=== PATIENT | female | born 1940 | race Caucasian/White ===

== ENCOUNTER 2019-02-09 01:19 | Emergency (ER) | payer MEDICARE, SELFPAY ==
[2019-02-09 01:21] VITALS: BP 186/81; PULSE 70; RESP 15; TEMP 37.2; O2SAT 96; BMI 33.2
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
[2019-02-09] MEDS: Morphine 4 MG/ML Syringe IM (01:51)
[2019-02-09] MEDS: Triamcinolone Acetonide 40 MG/ML Vial IM (01:51)
[2019-02-09 02:21] VITALS: BP 192/81; PULSE 68; RESP 15; O2SAT 98
--- NOTE | 2019-02-09 02:22 | ED.RN ---
PT AND PT DAUGHTER EDUCATED ON DISCHARGE INSTRUCTIONS AND HOME GOING PRESCRIPTIONS. PT EDUCATED ON USE OF MEDICATION AND FOLLOW UP. DR. LINTON AWARE OF PT BP 192/81 ON DISCHARGE. REPORTS THAT PT IS TO MONITOR BP AT HOME AND FOLLOW UP WITH DR. HENDRIX REGARDING ELEVATION, PT EDUCATED TO KEEP A JOURNAL OF BP FOR FOLLOW UP. PT CLEARED FOR D/C PER DR. LINTON. PT VERBALIZES UNDERSTANDING AND DENIES ANY FURTHER QUESTIONS. PT AMBULATES OUT OF DEPT WITH DAUGHTER.
== END 2019-02-09 02:26 | disposition home or self-care (01) ==
PROVIDERS: Emergency Provider Emergency Medicine; Family Provider Family Medicine; PCP Family Medicine
DX: S46.811A Strain of other muscles, fascia and tendons at shoulder and upper arm level, right arm, initial encounter (principal); X58.XXXA Exposure to other specified factors, initial encounter; Y93.9 Activity, unspecified; Y92.9 Unspecified place or not applicable; Y99.9 Unspecified external cause status; I10 Essential (primary) hypertension
CPT/HCPCS: 96372; 99282

== ENCOUNTER 2019-06-27 12:51 | Observation (INO) | payer MEDICARE, SELFPAY ==
[2019-06-27] VITALS (11 sets, daily range): BP systolic 138–194; BP diastolic 9–91; PULSE 57–73; RESP 16–20; TEMP 36.4–36.6; O2SAT 95–96; BMI 35.4; BMI 34.4; BMI 34.5
--- NOTE | 2019-06-27 13:07 | EKG12_ITS ---
Test Reason : CP Blood Pressure : / mmHG Vent. Rate : 061 BPM Atrial Rate : 061 BPM P-R Int : 156 ms QRS Dur : 082 ms QT Int : 426 ms P-R-T Axes : 016 -12 -15 degrees QTc Int : 428 ms Sinus rhythm with Premature atrial complexes Nonspecific ST abnormality Abnormal ECG When compared with ECG of 27-JUN-2019 12:53, MANUAL COMPARISON REQUIRED, DATA IS UNCONFIRMED Confirmed by SANDRA RIVERA, JACLYN ([id number]), editor index OTONIEL MORTON ([id number]) on 06/29/2019 1:27:39 PM Referred By: Avinash Lockhart Confirmed By:SHAWN FLORES MD
--- NOTE | 2019-06-27 13:15 | RAD_ITS ---
STUDY: X-RAY CHEST REASON FOR EXAM: Female, 79 years old. CHEST PAIN, DIZZINESS TECHNIQUE: Single AP portable view of the chest. COMPARISON: None. FINDINGS: EKG electrodes are seen. There is elevation of the right hemidiaphragm. Mild increased linear markings are seen at the right lung base suggests underlying atelectasis and/or scarring. There is no demonstrated pleural abnormality. Normal size heart. Normal mediastinum and gisele. Normal visualized pulmonary arteries. Normal visualized aortic arch and descending thoracic aorta. There are diffuse degenerative changes of the visualized thoracic spine. Normal visualized ribs, clavicles, and shoulders. There is no demonstrated abnormality of the visualized soft tissue structures of the upper abdomen. RAD/Chest 1 View (Portable) IMPRESSION: Elevation of the right hemidiaphragm with mild increased linear markings at the right lung base suggests underlying atelectasis and/or scarring. Electronically Signed: Robert Martínez, at 13:40 EST , Service support ,
[2019-06-27] MEDS: Aspirin 81 MG TAB.CHEW 324 MG PO (13:16)
[2019-06-27] MEDS: Nitroglycerin SL (ED/IMG/CATH) 0.4 MG TABLET SUBLINGUAL ×3 (13:17→13:32)
[2019-06-27 13:23] LABS: Absolute Lymphocyte Count 2.41 X10^3/uL (0.83-4.51); Absolute Neutrophil Count 3.2 X10^3/uL (2.0-7.7); Basophil# 0.01 X10^3/uL; Basophil% 0.2 % (0-1); Eosinophil# 0.08 X10^3/uL; Eosinophils% 1.3 % (0-5); Hematocrit 37.1 % (37-47); Hemoglobin 11.3 g/dL (12.0-15.0); Lymphocyte # 2.41 X10^3/ul (4.0); Lymphocyte % 39.5 % (19-41); Mean Corp Hgb Conc 30.5 g/dL (32-36); Mean Corpuscular Hgb 23.2 pg (27.0-32.0); Mean Platelet Vol. 9.2 fl (6.2-12.0); Monocyte# 0.38 X10^3/uL; Monocyte% 6.2 % (0-10); NRBC Flagged by Analyzer 0 % (0-5); Neutrophil # 3.21 X10^3/uL (2.7-7.7); Neutrophil % 52.6 % (47-70); Platelet Count 274 K/mm3 (150-450); RBC Distribution Width CV 16.6 % (11.6-14.6); RBC Distribution Width SD 45.3 fl (35.1-43.9); Red Blood Count 4.88 M/mm3 (4.2-5.4); White Blood Count 6.1 K/mm3 (4.4-11.0)
[2019-06-27] MEDS: 0.9% Normal Saline 1,000 ML 150 ML IV (13:27)
[2019-06-27 13:42] LABS: Anion Gap 5 (5-15); BUN 18 mg/dL (7-18); BUN/Creat Ratio 17.5 RATIO (10-20); Calcium,Total 8.8 mg/dL (8.5-10.1); Chloride 108 mmol/L (98-107); Creatinine, Serum 1.03 mg/dL (0.55-1.02); EST Glomerular Filtration Rate 55 mL/min (>60); Est Glom Filt Rate - Afr Amer 67 mL/min (>60); Estimated Creatinine Clearance 41.46 ml/min; Glucose 112 mg/dL (74-106); Potassium 3.6 mmol/L (3.5-5.1); Sodium Level 142 mmol/L (136-145)
--- NOTE | 2019-06-27 14:23 | ED.DCSUM_ITS ---
- ER Visit Summary Date of Service: 06/27/19 Chief Complaint: [Dizziness and chest pain] History of Present Illness: The patient is a 79 F presents with dizziness, chest pain, and hypertension symptoms x4 days. Patient states the dizziness started 4 days ago and seems like vertigo when she tries to stand she feels off balance and feels like things are spinning around and round.] Patient started with chest discomfort this morning around 9 AM she describes a dull ache in the left chest that causes her to feel somewhat short of breath and lightheaded. She denies any diaphoresis. She denies any radiation of the pain. Patient has history of hypertension and high cholesterol. Patient states that it is been many years since her last stress test. She is never had a heart attack and does not have any cardiac stents. She denies recent travel or surgery. She has no history of PE or DVT. Physical Examination: [HEENT-PERRLA, EOMI. Cranial nerves II through XII grossly intact. TMs clear. Mucous membranes moist. No adenopathy. Cardiovascular-regular rate and rhythm without murmur or ectopy Lungs-clear to auscultation, chest wall stable without crepitus or subcu emphysema Abdomen-normoactive bowel sounds, soft, nontender, no rebound or rigidity, no peritoneal signs. Extremities-intact ?4, normal range of motion, normal pulses, atraumatic] Test Results: [EKG obtained showed a sinus rhythm with a ventricular rate of [address] depressions noted anterior laterally. Patient has flipped T waves inferiorly which appear to be chronic when compared with EKG from [address] depression seems to be new. CBC with it was unremarkable. Troponin is less than 0.015. Chemistries unremarkable. Chest x- ray showed right lung base atelectasis and scarring.] Emergency Department Course and Treatment: [Received aspirin and sublingual nitroglycerin which resolved her pain.] Treatment Plan: [Admit for further work-up and evaluation of her chest pain] Disposition: [Admit] Impression: [Chest pain-rule out acute coronary syndrome] This note was generated with AngelList[employer] software. It may contain incorrect words, spelling, and punctuation that were not noted in review of the chart prior to signing ED Disposition - Plan for ED Patient: Referrals: Brock Reddy III, MD [Primary Care Provider] -
--- NOTE | 2019-06-27 15:37 | EKG12_ITS ---
Test Reason : CP Blood Pressure : / mmHG Vent. Rate : 073 BPM Atrial Rate : 073 BPM P-R Int : 140 ms QRS Dur : 084 ms QT Int : 406 ms P-R-T Axes : 012 -17 -02 degrees QTc Int : 447 ms Sinus rhythm with sinus arrhythmia with frequent Premature ventricular complexes Left ventricular hypertrophy Nonspecific ST-Segment Abnormality Abnormal ECG Confirmed by MARLEN RIVERA, SONIA ([id number]), editor trade journal SANJAY BLANCAS ([id number]) on 07/02/2019 10:31:35 AM Referred By: Avinash Lockhart Confirmed By:SONIA GEE MD
--- NOTE | 2019-06-27 16:05 | HP.PCM_ITS ---
History of Present Illness Date of Admission: 06/27/19 Chief Complaint: chest pain The patient is a 79 year old F presents with 1 day h/o midsternal chest pain. Chest pain was not relieved nor exacerbated by anything during the day but was persistent. Patient stated that it did not radiate. Did have some shortness of breath. Patient never had chest pain like this before. Presented to the emergency room and EKG showed some T-segment depressions. Patient did receive aspirin and nitroglycerin. Chest pain resolved with nitroglycerin. The hospital service was asked to admit the patient for further cardiac evaluation. [] Past Medical History Medical History: Medical History (Last Updated 06/27/19 @ 16:07 by Avinash Lockhart DO) Glaucoma H40.9 Allergies No Known Allergies Allergy (Verified 06/27/19 12:54) Home Medications: Ambulatory Orders Medication Instructions Recorded Aspirin 81 mg PO DAILY 02/09/19 Calcium Carbonate/Vitamin D3 1 ea PO DAILY 02/09/19 [Calcium 600 + Vit D Tablet] Omeprazole 40 mg PO DAILY 02/09/19 Pravastatin [Pravachol] 40 mg PO QHS 02/09/19 Latanoprost 1 drp EACH EYE QHS 06/27/19 Surgical History: noncontributory Smoking Status: Never smoker Tobacco Use: Secondhand - *Family History Maternal History Items: - - no CAD Review of Systems Constitutional: Denies: Anorexia, Chills, Fever Eyes: Denies: Blurred vision, Double vision HEENT: Denies: Head Aches, Sinus Congestion, Sinus Drainage Cardiovascular: Reports: Chest Pain. Denies: Edema Respiratory: Reports: Shortness of Breath. Denies: Cough Gastrointestinal: Denies: Abdominal Pain, Nausea, Vomiting Genitourinary: Denies: Dysuria Musculoskeletal: Denies: Joint Pain, Joint Tenderness Skin: Denies: Rash, Wounds Neurological: Reports: - - Patient has had dizziness over the past few days. Patient has had intermittent dizziness previous that resolved spontaneously.. Denies: Focal weakness, Numbness, Tingling Psychiatric: Denies: Anxiety, Depression Hematologic/ Lymphatic: Denies: Easy Bruising, Easy Bleeding, Hx of blood clot Comment: All review systems are otherwise negative except for as mentioned above and in HPI. VTE Information - Inpt Only VTE Present on Admission: No VTE Mechan Device Prophylaxis: None VTE Pharm Prophylaxis ordered?: No Reason prophylaxis not ordered:: Procedure Not Indicated - Physical Exam Vitals/I&O's: Vital Signs Temp Pulse Resp BP Pulse Ox 36.6 C 65 16 150/81 H 95 06/27/19 15:20 06/27/19 15:25 06/27/19 15:20 06/27/19 15:20 06/27/19 15:20 Oxygen Flow Rate (L/min) 2 Oxygen Delivery Method Room Air Weight: 97 kg Body Mass Index (BMI) 34.4 Orthostatic Vital Signs Start: 06/27/19 15:19 Freq: q24h Status: Active Protocol: Activity Type Activity Date Activity User E-Sign Co-Sign Detail Recorded Client Recorded Date Recorded By Document 06/27/19 15:19 MLB [id number] 06/27/19 15:19 MLB 06/27/19 15:19 Orthostatic Vitals Standing -Blood Pressure (90/60-120/80) 150/81 H -Extremity Use Right Arm -Pulse Rate (60-100) 73 Sitting -Blood Pressure (90/60-120/80) 161/79 H -Extremity Use Right Arm -Pulse Rate (60-100) 65 Lying -Blood Pressure (90/60-120/80) 155/9 H -Extremity Use Right Arm -Pulse Rate (60-100) 57 L General: Alert, Cooperative, No apparent distress HEENT: Atraumatic, PERRLA, EOMI, Normocephalic, - - Left lateral nystagmus Oral: Moist Mucosa, No Gingival or Mucosal Lesions/ Ulcerations Neck: No Nodes, Trachea Midline Lungs: Clear to auscultation, Normal air movement, No rhonchi, No wheeze Cardiovascular: Regular rate, Regular Rhythm, Normal S1, Normal S2, No murmurs Abdomen: Bowel Sounds Present, Soft, Non Tender, Non-Distended, No Hepato- splenomegaly Extremities: No edema, No Calf Tenderness Skin: No rashes, No breakdown Musculoskeletal: No Tenderness to Palpation of Joints or Extremities, No Muscle Wasting Neurological: Cranial nerves II-XII grossly intact, - - no clonus. Spangler-Hallpike was performed on the left and had reproducible dizziness. Was nontender on the right as patient was still dizzy after performing on the left. Psych/Mental Status: Normal Affect, Appropriate Laboratory Results 06/27/19 13:15: WBC 6.1, RBC 4.88, Hgb 11.3 L, Hct 37.1, MCV 76.0 L, MCH 23.2 L, MCHC 30.5 L, RDW Std Deviation 45.3 H, RDW Coeff of Cuate 16.6 H, Plt Count 274, MPV 9.2, Immature Gran % (Auto) 0.200, Neut % (Auto) 52.6, Lymph % (Auto) 39.5, [place] % (Auto) 6.2, Eos % (Auto) 1.3, Baso % (Auto) 0.2, Absolute Neuts (auto) 3.2, Absolute Lymphs (auto) 2.41, Nucleated RBC % 0 06/27/19 13:15: Sodium 142, Potassium 3.6, Chloride 108 H, Carbon Dioxide 29.0, Anion Gap 5, BUN 18, Creatinine 1.03 H, Estim Creat Clear Calc 41.46, Est GFR (MDRD) Af Amer 67, Est GFR (MDRD) Non-Af 55 L, BUN/Creatinine Ratio 17.5, Glucose 112 H, Calcium 8.8, Troponin I < 0.015 06/27/19 15:52: Troponin I Pending EKG reviewed and showed normal sinus rhythm with ST depression in 2 and aVL, V4, V5 and V6. Current Medications Sodium Chloride () 1,000 mls @ 150 mls/hr IV .Q6H40M [facility] Last Admin: 06/27/19 13:27 Dose: 150 mls/hr Documented by: Sodium Chloride () 10 - 40 ml IV UD PRN PRN Reason: SALINE FLUSH Assessment/Plan 1. Chest pain * heart score of 5, SOLOMON 4 * plan for chemical nuc stress on 06/28 * cycle troponins 2. BPPV, acute * meclizine PRN * PT for vestibular rehab * no additional work up at this time 3. VTE prophylaxis: not indicated as pt is low risk at this time 4. ACP: dw patient. She wishes to be full code at this time. Code Visit OBSV E&M: [id number] Initial observation care L3
[2019-06-27] MEDS: Latanoprost 0.005% 1 Bottle 1 DRP EACH EYE (21:19)
[2019-06-27] MEDS: Pravastatin 40 MG Tablet PO (21:20)
[2019-06-28] VITALS (8 sets, daily range): BP systolic 124–177; BP diastolic 71–88; PULSE 62–85; RESP 14–18; TEMP 36.6–36.7; O2SAT 95–98
--- NOTE | 2019-06-28 05:00 | EKG12_ITS ---
Test Reason : AM EKG Blood Pressure : / mmHG Vent. Rate : 060 BPM Atrial Rate : 060 BPM P-R Int : 162 ms QRS Dur : 082 ms QT Int : 426 ms P-R-T Axes : 029 -09 -10 degrees QTc Int : 426 ms Sinus rhythm with occasional Premature ventricular complexes and Premature atrial complexes Nonspecific ST abnormality Abnormal ECG When compared with ECG of 27-JUN-2019 15:32, MANUAL COMPARISON REQUIRED, DATA IS UNCONFIRMED Confirmed by SANDRA RIVERA, JACLYN ([id number]), technical writer and editor OTONIEL MORTON ([id number]) on 06/29/2019 1:22:37 PM Referred By: Avinash Lockhart Confirmed By:SHAWN FLORES MD
[2019-06-28 05:46] LABS: Cholesterol 153 mg/dL (200); High Density Lipoprotein 51 mg/dL; Triglycerides 123 mg/dL; Very Low Density Lipoprotein 25 mg/dL (5-40)
[2019-06-28] MEDS: Aspirin 81 MG TAB.CHEW PO (06:05)
[2019-06-28] MEDS: Pantoprazole Sodium 40 MG Tablet PO (06:05)
--- NOTE | 2019-06-28 12:04 | CASEMGMT ---
Therapy is recommending OP vestibular therapy for pt at this time. Pt is sitting up on side of bed in no distress at this time. Pt is agreeable to OP therapy at this time and script faxed along with facesheet to [facility] once signed and original to pt. Pt voices no further questions/concerns/needs at this time. Pt is awaiting stress test results at this time. SStanisa KNOTT CM
--- NOTE | 2019-06-28 15:12 | STRESSREP_ITS ---
Stress Test Report Date: 06/28/2019 Procedure: Pharmacologic stress nuclear imaging study Indications: Chest pain Consent: Per the patient Procedure: The patient underwent pharmacologic (Regadenoson) evaluation with a peak heart rate of 118 beats per minute (83 %predicted maximal heart rate) and a peak blood pressure of 172/80 mmHg. The baseline ECG demonstrated normal sinus rhythm with nonspecific ST-T changes. EKG during lexiscan infusion revealed sinus rhythm with nonspecific ST-T changes. EKG post infusion revealed no definite ischemic changes [There were no cardiac dysrhythmias pretest, during pharmacologic infusion, or recovery]. [There was no complaint of chest discomfort during pharmacologic infusion or recovery]. The examination was discontinued secondary to completion of protocol. Impression: 1. Lexiscan stress test test is negative for Lexiscan infusion induced EKG changes of ischemia. 2. Lexiscan stress test test is negative for Lexiscan infusion induced chest pain. 3. Results of the nuclear portion of the test is as below Myocardial perfusion imaging study: Technique: The patient was injected with [12] millicuries of technetium 99m Cardiolite and subsequently rest SPECT Cardiolite nuclear imaging was obtained in the horizontal long, vertical long, and short axis views. The patient underwent pha rmacologic (Regadenoson) evaluation. Please see above for details. The patient was injected with 35.3 millicuries of technetium 99m Cardiolite and subsequently stress SPECT Cardiolite nuclear imaging was obtained in the horizontal long, vertical long, and short axis views. A gated Cardiolite study at peak stress was obtained. Interpretation: Rest and stress SPECT Cardiolite nuclear imaging status post realignment, normalization, and attenuation correction demonstrate normal myocardial radioisotope uptake. Gated images reveal no significant regional wall motion abnormalities. The reported LVEF is [greater than 70]%. Impression: 1. There is no evidence of significant ischemia or infarction. 2. Estimated ejection fraction is greater than 70%. This note was generated with [place] [employer] software. It may contain incorrect words, spelling, and punctuation that were not noted in checking the note before signing.
--- NOTE | 2019-06-28 15:55 | DCINST_ITS ---
You will use the following diet at home:: Calorie/Carbohydrate Controlled (specify 1200, 1400, etc) - 1600, Cardiac Your food should be the consistency of: Regular Your liquids should be the consistency of: Regular/Thin Discharge Activity: Return to Normal Activity Call your doctor if you observe: Fever of 101 or Higher, Shortness of breath, Dizziness, Fainting spells, Swelling in the ankles, Chest pain, Increased palpitations (irregular heartbeat) Allergies/Adverse Reactions: Allergies No Known Allergies Allergy (Verified 06/27/19 12:54) Medications to take at Discharge Aspirin 81 mg PO DAILY 02/09/19 Calcium Carbonate/Vitamin D3 [Calcium 600 + Vit D Tablet] 1 ea PO DAILY 02/09/19 Omeprazole 40 mg PO DAILY 02/09/19 Pravastatin [Pravachol] 40 mg PO QHS 02/09/19 Latanoprost 1 drp EACH EYE QHS 06/27/19 Meclizine HCl [Antivert] 12.5 mg PO TID PRN PRN #15 tab 06/28/19 The following prescriptions were given: Meclizine HCl [Antivert] 12.5 mg PO TID PRN PRN #15 tab PRN Reason: Dizziness Transmission Status: Pending to [facility] Primary Care Physician: Brock Reddy III, MD [Primary Care Provider] - Please follow up with your Primary Care Physician in: 3-5 days Test Results: Test results from this visit will be discussed in further detail at your follow- up appointment, if applicable.
--- NOTE | 2019-06-28 16:22 | PCM.DC.SUM ---
Discharge Date and Diagnosis Date of Admission: 06/27/19 Date of Discharge: 06/28/19 Hospital Course and Treatment Imaging Results: CXR: IMPRESSION: Elevation of the right hemidiaphragm with mild increased linear markings at the right lung base suggests underlying atelectasis and/or scarring. Stress Test: Impression: 1. Lexiscan stress test test is negative for Lexiscan infusion induced EKG changes of ischemia. 2. Lexiscan stress test test is negative for Lexiscan infusion induced chest pain. 3. Results of the nuclear portion of the test is as below Myocardial perfusion imaging study: Technique: The patient was injected with [12] millicuries of technetium 99m Cardiolite and subsequently rest SPECT Cardiolite nuclear imaging was obtained in the horizontal long, vertical long, and short axis views. The patient underwent pharmacologic (Regadenoson) evaluation. Please see above for details. The patient was injected with 35.3 millicuries of technetium 99m Cardiolite and subsequently stress SPECT Cardiolite nuclear imaging was obtained in the horizontal long, vertical long, and short axis views. A gated Cardiolite study at peak stress was obtained. Interpretation: Rest and stress SPECT Cardiolite nuclear imaging status post realignment, normalization, and attenuation correction demonstrate normal myocardial radioisotope uptake. Gated images reveal no significant regional wall motion abnormalities. The reported LVEF is [greater than 70]%. Impression: 1. There is no evidence of significant ischemia or infarction. 2. Estimated ejection fraction is greater than 70%. Consults: None Operations: None Procedures: Nuclear stress test Summary of Care Provided: Per HPI: The patient is a 79 year old F presents with 1 day h/o midsternal chest pain. Chest pain was not relieved nor exacerbated by anything during the day but was persistent. Patient stated that it did not radiate. Did have some shortness of breath. Patient never had chest pain like this before. Presented to the emergency room and EKG showed some T-segment depressions. Patient did receive aspirin and nitroglycerin. Chest pain resolved with nitroglycerin. The hospital service was asked to admit the patient for further cardiac evaluation. Hospital Course: 1. Chest [id number]-old female with 1 day history of midsternal chest pain with a heart score of 5 and a SOLOMON score of 4 presented to the ER. She says that it was not relieved or exacerbated by anything but it was persistent. She had an EKG that was essentially unremarkable and 3 troponins which were normal. She had a nuclear stress test which was nonischemic. In discussion with her today she says that her chest pain has completely resolved. I recommend that she continue her aspirin as well as her statin and she follow-up with her primary care doctor in 3 to 5 days. At the panel was on remarkable. I discussed discharge with her and her family, she understands the risks and benefits of going home and will be discharged today. 2. BPPV-she was started on meclizine while here in the hospital and feels little bit better, PT/OT saw her and recommended outpatient vestibular therapy. The admitting physician performed a Bastian-Hallpike maneuver on her which seemed to help, she did not have a nystagmus today. 3. Her other medical diagnoses were evaluated and her home medications were continued where appropriate - Physical Exam Vitals/I&O's: Vital Signs Temp Pulse Resp BP Pulse Ox 97.8 F 72 14 177/86 H 95 06/28/19 11:47 06/28/19 15:48 06/28/19 11:47 06/28/19 11:47 06/28/19 11:47 Oxygen Flow Rate (L/min) 2 Oxygen Delivery Method Room Air Weight: 213 lb 13.574 oz Body Mass Index (BMI) 34.4 Orthostatic Vital Signs Start: 06/27/19 15:19 Freq: q24h Status: Active Protocol: Activity Type Activity Date Activity User E-Sign Co-Sign Detail Recorded Client Recorded Date Recorded By Document 06/28/19 06:08 DEBORAH [id number] 06/28/19 06:17 KR 06/28/19 06:08 Orthostatic Vitals Standing -Blood Pressure (90/60-120/80) 167/78 H -Extremity Use Right Arm -Pulse Rate (60-100) 74 Sitting -Blood Pressure (90/60-120/80) 153/77 H -Extremity Use Right Arm -Pulse Rate (60-100) 66 Lying -Blood Pressure (90/60-120/80) 147/88 H -Extremity Use Right Arm -Pulse Rate (60-100) 72 Intake and Output for Last 24 Hours 06/26/19 06/27/19 06/28/19 23:59 23:59 23:59 Intake Total 675 / 675 / 220 Balance 675 / 675 / 220 General: Alert, Oriented x3, Cooperative, No apparent distress HEENT: Atraumatic, PERRLA, EOMI, Normocephalic Oral: Moist Mucosa Neck: Supple, No JVD Lungs: Clear to auscultation, Normal air movement, No rhonchi, No wheeze, No rales, Diminished Cardiovascular: Regular rate, Regular Rhythm, Normal S1, Normal S2, No murmurs Abdomen: Soft, Non Tender, Non-Distended, No Hepato-splenomegaly Extremities: No edema, Capillary Refill Less than 3 Seconds Skin: No rashes, No breakdown Neurological: Neuro grossly intact, Sensory exam intact to light touch and pain Psych/Mental Status: Normal Affect, Appropriate Laboratory Results 06/27/19 15:52: Troponin I < 0.015 06/27/19 19:20: Troponin I < 0.015 06/28/19 05:05: Triglycerides 123, Cholesterol 153, LDL Cholesterol 77, VLDL Cholesterol 25, HDL Cholesterol 51 Current Medications Acetaminophen (Tylenol) 650 mg PO Q6H PRN PRN PRN Reason: Pain Score 1-3/Temp > 100.7 F Aspirin ([facility]in, Baby) [facility] Last Admin: 06/28/19 06:05 Dose: 81 mg Documented by: Latanoprost (Xalatan Opthalmic) 1 drop EACH EYE QHS [facility] Last Admin: 06/27/19 21:19 Dose: 1 drop Documented by: Meclizine HCl (Antivert) 12.5 mg PO TID PRN PRN PRN Reason: DIZZINESS Nitroglycerin (Nitrostat) 0.4 mg SUBLINGUAL Q5M PRN PRN Reason: CARDIAC/CHEST PAIN Ondansetron HCl (Zofran) 4 mg IV Q8H PRN PRN PRN Reason: NAUSEA/VOMITING Pantoprazole Sodium (Protonix) 40 mg PO DAILY [facility] Last Admin: 06/28/19 06:05 Dose: 40 mg Documented by: Pravastatin Sodium (Pravachol) 40 mg PO QHS [facility] Last Admin: 06/27/19 21:20 Dose: 40 mg Documented by: Discharge Activity: Return to Normal Activity Call your doctor if you observe: Fever of 101 or Higher, Shortness of breath, Dizziness, Fainting spells, Swelling in the ankles, Chest pain, Increased palpitations (irregular heartbeat) Home Medications: Medications to take at Discharge Aspirin 81 mg PO DAILY 02/09/19 Calcium Carbonate/Vitamin D3 [Calcium 600 + Vit D Tablet] 1 ea PO DAILY 02/09/19 Omeprazole 40 mg PO DAILY 02/09/19 Pravastatin [Pravachol] 40 mg PO QHS 02/09/19 Latanoprost 1 drp EACH EYE QHS 06/27/19 Meclizine HCl [Antivert] 12.5 mg PO TID PRN PRN #15 tab 06/28/19 Following Prescrptions Were Given to Patient: Meclizine HCl [Antivert] 12.5 mg PO TID PRN PRN #15 tab PRN Reason: Dizziness Transmission Status: Received by [facility] Primary Care Physician: Brock Reddy III, MD [Primary Care Provider] - Please follow up with your Primary Care Physician in: 3-5 days Disposition: Home Minutes spent on discharge:: 35 Patient Condition:: Stable Medical Necessity - Tobacco Use Smoking Status: Never smoker Tobacco Use: Secondhand Meaningful Use Info Meaningful Use Diagnoses (Choose all that apply): None applicable Code Visit OBSV E&M: 62526 Observation care discharge
--- NOTE | 2019-06-28 16:30 | NURSING ---
daughter came to desk wanted to leave isaac would not wait to talk to
== END 2019-06-28 15:56 | disposition home or self-care (01) ==
LOC: PCU 14:51 → ED 15:04 → PCU 15:55
PROVIDERS: Emergency Provider Emergency Medicine; Family Provider Family Medicine; PCP Family Medicine; Visit Provider Family Medicine
DX: R07.89 Other chest pain (principal); H81.10 Benign paroxysmal vertigo, unspecified ear; I10 Essential (primary) hypertension; R06.02 Shortness of breath; H40.9 Unspecified glaucoma; E78.00 Pure hypercholesterolemia, unspecified; Z79.899 Other long term (current) drug therapy; Z79.82 Long term (current) use of aspirin; R94.31 Abnormal electrocardiogram [ECG] [EKG]
CPT/HCPCS: 36415; 71045; 78452; 80048; 80061; 84484; 85025; 93005; 93017; 96360; 96361; 97162; 99218; 99285; A9500; J7030; A4216; G0378; J2785

== ENCOUNTER 2020-09-14 13:43 | Emergency (ER) | payer MEDICARE, SELFPAY ==
[2019-06-27 15:11] VITALS: BMI 34.4
[2020-09-14 13:44] VITALS: BP 146/79; PULSE 98; RESP 16; TEMP 35.7; O2SAT 98; BMI 32.3
--- NOTE | 2020-09-14 14:31 | CT_ITS ---
STUDY: CT LUMBAR SPINE WITHOUT CONTRAST REASON FOR EXAM: Female, 80 years old. Pain RADIATION DOSAGE (If Supplied By Facility): CTDIvol = ( 23.05 ) mGy, DLP = ( 1474.82 ) mGycm TECHNIQUE: The patient was scanned in a multi detector CT scanner. High resolution transaxial imaging was performed. Images were obtained from lower T12 to S. Sagittal and coronal images were reconstructed. Individualized dose optimization techniques were used for this CT. COMPARISON: 08/27/2011 FINDINGS: This study is limited by the patient''s body habitus. The bones are osteopenic. No acute fracture or subluxation is seen in the lumbar spine. Multilevel lumbar spondylosis is noted, inadequately evaluated on the current study. There is no pars defect. No lytic or sclerotic lesion is seen. There is vascular calcification. Distal colonic diverticulosis is noted. CT/Spine Lumbar without Contrast IMPRESSION: No CT evidence of acute finding the lumbar spine. Multilevel lumbar spondylosis, inadequately evaluated due to the patient''s body habitus. MRI may be obtained if clinically indicated. Electronically Signed: Shashi Garcia MD at 15:54 EDT Tel , Service support ,
--- NOTE | 2020-09-14 15:05 | CT_ITS ---
Technique: Axial images of the right hip are obtained. Images were reformatted and viewed in coronal and sagittal planes. COMPARISON: None. FINDINGS: There is no CT evidence of acute fracture or dislocation in the right hip. Moderate degenerative changes of the right hip and sacroiliac are noted. The bones are somewhat osteopenic. No osseous erosion is seen. There is no lytic or sclerotic lesion. Degenerative changes of the lower lumbar spine are seen. There has been prior hysterectomy. Vascular calcification is seen. CT/Extremity Lower without Contra IMPRESSION: No CT evidence of acute fracture or dislocation the right kidney. MRI may be obtained if clinical suspicion for nondisplaced fracture is high. Electronically Signed: Shashi Garcia MD at 15:50 EDT Tel , Service support ,
[2020-09-14] MEDS: HYDROcodone Bitartrate/Apap 5/325 Tablet PO (15:25)
--- NOTE | 2020-09-14 15:35 | ED.VISSUMM ---
- ER Visit Summary Date of Service: 09/14/20 Chief Complaint: Right lower extremity pain History of Present Illness: The patient is a 80 F who presents with right lower extremity pain that has been getting worse over the past week. Patient denies any specific trauma or injury. Patient states the pain is over her posterior right hip and low back. Patient states the pain radiates all the way down her right lower extremity. Patient describes the pain as sharp and aching. Patient states nothing makes it better and nothing makes it worse. Patient denies any paresthesias or weakness. Patient admits to some nausea and vomiting due to the pain. Patient denies any radiation of the pain into her abdomen. Patient states she has had x-ray of the right hip and venous duplex of the right lower extremity which were negative. Patient states she has been taking Tylenol every 4 hours for pain with minimal improvement. Physical Examination: Vital signs are stable. Patient is afebrile. Patient is in no acute distress. Musculoskeletal exam reveals tenderness over the posterior aspect of the right hip and right lower lumbar paraspinal muscles. There is also tenderness over the sciatic notch. There is no bony crepitance or step-off noted. Range of motion was limited in all motions of the right hip and lumbar spine secondary to pain. Strength is 5/5 bilateral in the lower extremities. There are no sensory deficits noted. Pedal pulses are equal bilaterally. There is no calf tenderness. Test Results: CT scan of the lumbar spine was obtained. There are degenerative changes. There is no acute fracture or spondylolisthesis. This was interpreted by the radiologist and reviewed by myself. CT scan of the right hip was obtained. There is no occult fracture or dislocation. There are moderate degenerative changes of the right hip and sacroiliac joint. This was interpreted by the radiologist and reviewed by myself. Emergency Department Course and Treatment: Was given a dose of [place] here. Patient is feeling better on reevaluation. Patient was given a prescription for [place]. Patient was instructed to follow-up with her primary care physician in 5 to 7 days. Patient understood and was agreeable with the plan. All questions were answered. Disposition: Discharge home Impression: 1. Sciatica This note was generated with [employer] software. It may contain incorrect words, spelling, and punctuation that were not noted in review of the chart prior to signing ED Disposition - Plan for ED Patient: Disposition: Home or Assisted Living Diagnosis: Sciatica Instructions: ED Sciatica Prescriptions: Hydrocodone Bitart/Apap 5-325 [[place] 5MG-325MG] 1 tablet PO Q6H PRN PRN 3 Days #10 tab PRN Reason: Pain Prescription Printed Referrals: Brock Reddy III, MD [Primary Care Provider] - 3-5 Days
== END 2020-09-14 16:28 | disposition home or self-care (01) ==
PROVIDERS: Emergency Provider Emergency Medicine; PCP Family Medicine
DX: M54.30 Sciatica, unspecified side (principal); R11.2 Nausea with vomiting, unspecified; K21.9 Gastro-esophageal reflux disease without esophagitis; I10 Essential (primary) hypertension; Z90.49 Acquired absence of other specified parts of digestive tract; H40.9 Unspecified glaucoma; Z85.828 Personal history of other malignant neoplasm of skin
CPT/HCPCS: 72131; 73700; 99282

== ENCOUNTER 2022-08-26 05:06 | Emergency (ER) | payer MEDICARE, SELFPAY ==
[2022-08-26 05:06] VITALS: BP 173/84; PULSE 73; RESP 25; TEMP 36.4; O2SAT 97; BMI 32.1
--- NOTE | 2022-08-26 05:32 | RAD_ITS ---
EXAM: XR CHEST, 1 VIEW CLINICAL INDICATION: chest pain TECHNIQUE: Frontal view of the chest. This report was created using [employer] report generation technology. COMPARISON: 06/27/2019 FINDINGS: LUNGS AND PLEURAL SPACES: Unremarkable. No consolidation or edema. No pneumothorax. No effusion. HEART: Unremarkable. Cardiac silhouette not enlarged. MEDIASTINUM: Central airways and mediastinal contour are unremarkable. BONES/JOINTS: Unremarkable. SOFT TISSUES: Unremarkable. UPPER ABDOMEN: Stable elevation of the right diaphragm. RAD/Chest 1 View (Portable) IMPRESSION: No acute findings in the chest. Electronically Signed: Florencio Puentes MD at 6:03 EST ,
[2022-08-26] MEDS: Ketorolac 15 MG/ML Vial IV (05:46)
[2022-08-26] MEDS: Orphenadrine 60 MG/2 ML Ampul IV (05:46)
[2022-08-26 05:48] LABS: Absolute Lymphocyte Count 2.99 X10^3/uL (0.83-4.51); Absolute Neutrophil Count 2.6 X10^3/uL (2.0-7.7); Basophil# 0.03 X10^3/uL; Basophil% 0.5 % (0-1); Eosinophils% 1.6 % (0-5); Hematocrit 44.2 % (37-47); Hemoglobin 13.9 g/dL (12.0-15.0); Lymphocyte # 2.99 X10^3/ul (0.83-4.51); Lymphocyte % 48.7 % (19-41); Mean Corp Hgb Conc 31.4 g/dL (32-36); Mean Corpuscular Hgb 25.3 pg (27.0-32.0); Mean Corpuscular Volume 80.4 fL (81-99); Mean Platelet Vol. 10.2 fl (6.2-12.0); Monocyte# 0.38 X10^3/uL; Monocyte% 6.2 % (0-10); NRBC Flagged by Analyzer 0 % (0-5); Neutrophil # 2.62 X10^3/uL (2.7-7.7); Neutrophil % 42.7 % (47-70); Platelet Count 270 K/mm3 (150-450); RBC Distribution Width CV 14.8 % (11.6-14.6); White Blood Count 6.1 K/mm3 (4.4-11.0)
[2022-08-26 06:06] LABS: Anion Gap 8 (5-15); BUN 18 mg/dL (7-18); BUN/Creat Ratio 17.8 RATIO (10-20); Calcium,Total 9.6 mg/dL (8.5-10.1); Chloride 103 mmol/L (98-107); Creatinine, Serum 1.01 mg/dL (0.55-1.02); EST Glomerular Filtration Rate 56 mL/min (>60); Est Glom Filt Rate - Afr Amer 67 mL/min (>60); Glucose 106 mg/dL (74-106); Potassium 3.4 mmol/L (3.5-5.1); Sodium Level 140 mmol/L (136-145); Troponin-I HS 8 pg/mL (3.0-54.0)
--- NOTE | 2022-08-26 06:40 | EX.ED.DYSGE1 ---
HPI History of Present Illness Chief Complaint: General Illness Narrative Narrative: Patient is an 82-year-old female with history of hypertension and hyperlipidemia. She states that yesterday she noticed some pain in her left mid upper arm. She states that there was no recent trauma or excessive activity. She states all she did the other day prior to the pain beginning was a jigsaw puzzle for multiple hours. She denies any true chest discomfort or radiation of the pain but states that with the left arm pain she just does not feel right. She also states that she took her blood pressure at home and it was elevated. Therefore at this time she has concern for possible cardiac event as her mother required bypass at roughly the same age and with this comes in for evaluation. [facility] Medical History (Updated 08/26/22 @ 06:[address] Juan Dockery DO) Glaucoma Hyperlipemia Hypertension Home Medications aspirin 81 mg chewable tablet 81 mg PO DAILY heart health 02/09/19 [History Last Taken 06/27/19] calcium carbonate-vitamin D3 600 mg-125 unit tablet 1 ea PO DAILY supplement 02/09/19 [History Last Taken 06/26/19] omeprazole 40 mg capsule,delayed release 40 mg PO DAILY reflux 02/09/19 [History Last Taken 06/27/19] pravastatin 40 mg tablet 40 mg PO QHS cholesterol 02/09/19 [History Last Taken 06/26/19] latanoprost 0.005 % eye drops 1 drp EACH EYE QHS glucoma 06/27/19 [History Last Taken 06/26/19] meclizine 12.5 mg tablet 12.5 mg PO TID PRN PRN Dizziness #15 tabs 06/28/19 [Rx Last Taken Unknown] methocarbamol 500 mg tablet 500 mg PO 4X/DAY PRN PRN Muscle pain/spasm #40 tabs 08/26/22 [Rx Last Taken Unknown] Allergy/AdvReac Type Severity Reaction Status Date / Time No Known Allergies Allergy Verified 08/26/22 05:11 Surgical History (Updated 08/26/22 @ 05:13 by Shawn Ly) History of appendectomy History of cholecystectomy Social History Smoking Status: Never smoker ROS ROS ED Constitutional Constitutional ED: Denies chills or fever(s) ENT ENT ED: Denies sore throat Cardiovascular Cardiovascular: Denies chest pain, palpitations or racing heartbeat Respiratory/Chest Respiratory/Chest: Denies cough or dyspnea Gastrointestinal Gastrointestinal: Denies abdominal pain, diarrhea, nausea or vomiting Genitourinary Genitourinary ED: Denies dysuria Musculoskeletal Musculoskeletal: Reports other Details: Positive left arm pain ; Denies myalgias Integumentary Denies Abrasions or rash Neurologic Neurologic: Denies headache(s) or paresthesias Hematologic/Lymphatic Hematologic/Lymphatic: Denies easy bleeding or easy bruising EXAM Physical Exam Const Vital Signs: 08/26/22 05:06 08/26/22 05:11 08/26/22 06:55 Temperature 97.6 F L Temperature Source Temporal Pulse Rate 73 64 Respiratory Rate 25 H 15 Respiratory Effort Normal Non-Labored Respiratory Pattern Normal Blood Pressure 173/84 H 157/78 H Blood Pressure Mean 113 Pulse Ox 97 97 Oxygen Delivery Method Room Air Positive well nourished and well developed General Appearance ED: well developed HEENT Reports moist mucous membranes Eyes PERRL and EOMs intact bilaterally Neck supple and no JVD Neck Narrative: No nuchal rigidity or meningeal signs Carotid pulses are plus 2 out of 4 Chest Wall palpation of chest normal Resp normal respiratory effort and clear to auscultation bilaterally Cardio regular rate and regular rhythm Rate: other Other Details: Radial pulses are plus 2 out of 4 bilaterally are equal and symmetric GI normal to inspection, nondistended, normoactive bowel sounds, non-tender, non-distended and no masses GI Narrative: No voluntary guarding or rigidity. No pulsatile mass or fluid wave Auscultation: normoactive bowel sounds Palpation: soft Extremity Extremity Narrative: No asymmetric edema no pitting edema negative Homans' sign bilaterally Left upper extremity is neurovascularly intact; AIN/PIN are intact and normal. There is reproducible pain along the midportion of the left lateral head of the bicep. Patient states this is the same pain she has been experiencing. The pain does worsen with motion. There is no overlying erythema or warmth or induration or fluctuance to suggest cellulitis or abscess and no palpable cord to suggest upper extremity DVT. There is also no edema of the upper extremities. Remainder of the exam is normal Neuro oriented x3 and CN's II-XII intact bilaterally Sensorium / Orientation: alert Psych mental status grossly normal Skin no rashes or lesions noted MDM MDM MDM Narrative Medical decision making narrative: Patient presented to the ER mildly hypertensive and reported pain in the left arm without acute trauma. On exam the pain is very reproducible and worse with motion indicating this is musculoskeletal in nature. She does not have any recent surgery or travel no hormone use and is low risk for upper extremity DVT or PE as a cause. She denies any radiation of the pain into the chest and she denies nausea vomiting diaphoresis shortness of breath associated with this. However as there is concerned that she could have endorgan damage secondary to the elevated blood pressure a basic work-up was obtained. Lab work revealed no clinically significant findings with stable electrolytes and normal kidney function as well as a normal troponin. Chest x-ray also revealed no acute lung pathology. I do not feel the need for an x-ray as there is no signs of report of trauma of the left upper extremity and as there is no asymmetric edema or overlying soft tissue color changes there is no need for an upper extremity venous duplex. Also compartments are soft going against car compartment syndrome as a cause of her pain. Therefore at this time as work-up is negative and patient's had resolution of her pain with Toradol and Norflex I feel it is more musculoskeletal in nature related to her report of working on a jigsaw where she would have her arm flexed for a long time. The patient and family feel comfortable going home as pain has resolved and work-up is negative and therefore should be discharged with muscle relaxers and advised to return if there is no symptom improvement or she has any further concerns. History & Record Review Discussion w/independent historian: Patient and Family Lab Data Attestation: I reviewed the patient's lab results. Labs: Laboratory Results - last 24 hr 08/26/22 08/26/22 05:13 05:13 WBC 6.1 RBC 5.50 H Hgb 13.9 Hct 44.2 MCV 80.4 L MCH 25.3 L MCHC 31.4 L RDW Std Deviation 43.0 RDW Coeff of Cuate 14.8 H Plt Count 270 MPV 10.2 Immature Gran % (Auto) 0.300 Neut % (Auto) 42.7 L Lymph % (Auto) 48.7 H Nye % (Auto) 6.2 Eos % (Auto) 1.6 Baso % (Auto) 0.5 Absolute Neuts (auto) 2.6 Absolute Lymphs (auto) 2.99 Nucleated RBC % 0 Sodium 140 Potassium 3.4 L Chloride 103 Carbon Dioxide 29.0 Anion Gap 8 BUN 18 Creatinine 1.01 Estim Creat Clear Calc 40.20 Est GFR (MDRD) Af Amer 67 Est GFR (MDRD) Non-Af 56 L BUN/Creatinine Ratio 17.8 Glucose 106 Calcium 9.6 Magnesium 2.0 Troponin I High Sens 8 Radiography Diagnostic Testing: Clinical Impression(s) from Imaging Studies Chest X-Ray 08/26/22 05:32 IMPRESSION: No acute findings in the chest. Electronically Signed: Florencio Puentes MD at 6:03 EST , Chest x-ray as interpreted by the emergency medicine physician reveals no acute infiltrate pneumothorax or pleural effusion Discharge Plan Triage Chief Complaint: General Illness ED Provider: Juan Dockery Dx/Rx/DC Orders Clinical Impression: Musculoskeletal pain of left upper extremity, Accelerated hypertension Instructions: ED Hypertension, To Be Confirmed, ED Muscle Strain, Extremity Prescriptions: New methocarbamol 500 mg tablet 500 mg PO 4X/DAY PRN PRN (Reason: Muscle pain/spasm) Qty: 40 0RF No Action pravastatin 40 MG tablet 40 mg PO QHS omeprazole 40 MG capsule,delayed release(DR/EC) 40 mg PO DAILY aspirin 81 MG tablet,chewable 81 mg PO DAILY calcium carbonate-vitamin D3 1 EACH tablet 1 ea PO DAILY latanoprost 0.005 % drops 1 drp EACH EYE QHS meclizine 12.5 MG tablet 12.5 mg PO TID PRN PRN (Reason: Dizziness) Qty: 15 0RF Primary Care Provider: Braulio Meadows Referrals: Braulio Meadows MD [Primary Care Provider] - Activity Restrictions/Additional Instructions: ER work-up today shows no signs of active heart damage or damage secondary to the elevated blood pressure reading at home. Please take all your medication as previously directed but add the muscle relaxer as the left arm pain appears to be related to muscular spasm and tension. Please return to the ER should you have any further concerns Disposition Disposition: Home, Self Care Discharge Date/Time: 08/26/22 06:56
[2022-08-26 06:55] VITALS: BP 157/78; PULSE 64; RESP 15; O2SAT 97
== END 2022-08-26 06:56 | disposition home or self-care (01) ==
PROVIDERS: Emergency Provider Emergency Medicine; PCP Family Medicine; Visit Provider Emergency Medicine
DX: I10 Essential (primary) hypertension (principal); M79.602 Pain in left arm; E78.5 Hyperlipidemia, unspecified; H40.9 Unspecified glaucoma; Z79.899 Other long term (current) drug therapy; Z79.82 Long term (current) use of aspirin
CPT/HCPCS: 71045; 80048; 83735; 84484; 85025; 93005; 96374; 96375; 99284; A4216

== ENCOUNTER 2024-01-21 13:38 | Emergency (ER) | payer MEDICARE, SELFPAY ==
[2024-01-21 13:40] VITALS: BP 148/76; PULSE 59; RESP 16; TEMP 35.5; O2SAT 98; BMI 30.7
--- NOTE | 2024-01-21 14:14 | RAD_ITS ---
STUDY: X-RAY - LEFT KNEE REASON FOR EXAM: Female, 83 years old. FALL TECHNIQUE: 4 view(s) of the knee. COMPARISON: None. FINDINGS: There is demineralization of the visualized distal femur. There is demineralization of the tibia and fibula. Normal proximal tibiofibular articulation. There is no demonstrated fracture. There is mild degenerative arthrosis of the medial femorotibial compartment. Normal lateral femorotibial compartment. There is mild degenerative arthrosis of the patellofemoral articulation. The soft tissue structures are unremarkable. RAD/Knee 4 or More Views IMPRESSION: Degenerative arthrosis. Electronically Signed: Gabe Vang MD at 15:39 EDT ,
--- NOTE | 2024-01-21 15:59 | EX.ED.DYSGE1 ---
HPI History of Present Illness Chief Complaint: Lower Extremity Injury Informant: patient and spouse/S.O. Narrative Narrative: Patient is 83-year-old female with history of hypertension hyperlipidemia. She states this morning she was walking out to the freezer in the garage and she tripped over the lawnmower which she had parked in front of it and forgot about. She states she landed directly on her left knee and denies striking her head or any loss of consciousness. She also denies any history of bleeding disorder or blood thinner use. She states has been able to ambulate since the fall but there has been swelling bruising and pain and she is concerned for fracture and therefore comes in for evaluation. [facility] Medical History (Updated 01/21/24 @ 16:[address] Juan Dockery, DO) Hyperlipemia Hypertension Glaucoma Home Medications ?Medication ?Instructions ?Recorded ?Last Taken ?Type aspirin 81 mg chewable tablet 81 mg PO DAILY heart health 02/09/19 06/27/19 History calcium carbonate-vitamin D3 600 1 ea PO DAILY supplement 02/09/19 06/26/19 History mg-125 unit tablet omeprazole 40 mg capsule,delayed 40 mg PO DAILY reflux 02/09/19 06/27/19 History release pravastatin 40 mg tablet 40 mg PO QHS cholesterol 02/09/19 06/26/19 History latanoprost 0.005 % eye drops 1 drp EACH EYE QHS glucoma 06/27/19 06/26/19 History meclizine 12.5 mg tablet 12.5 mg PO TID PRN PRN Dizziness 06/28/19 Unknown Rx #15 tabs methocarbamol 500 mg tablet 500 mg PO 4X/DAY PRN PRN Muscle 08/26/22 Unknown Rx pain/spasm #40 tabs Allergy/AdvReac Type Severity Reaction Status Date / Time No Known Allergies Allergy Verified 01/21/24 13:40 Surgical History (Updated 08/26/22 @ 05:13 by Shawn Ly) History of cholecystectomy History of appendectomy Social History Smoking Status: Never smoker ROS ROS ED Constitutional Constitutional ED: Denies chills or fever(s) Eyes Eyes: Denies blurry vision or change in vision ENT ENT ED: Denies sore throat Cardiovascular Cardiovascular: Denies chest pain Respiratory/Chest Respiratory/Chest: Denies cough or dyspnea Gastrointestinal Gastrointestinal: Denies abdominal pain, diarrhea, nausea or vomiting Genitourinary Genitourinary ED: Denies dysuria Musculoskeletal Musculoskeletal: Reports other Details: Positive swelling and pain in the left knee ; Denies back pain or neck pain Integumentary Reports other Details: Positive bruising left knee ; Denies rash Neurologic Neurologic: Denies headache(s), paresthesias or weakness Hematologic/Lymphatic Hematologic/Lymphatic: Denies easy bleeding or easy bruising EXAM Physical Exam Const Vital Signs: 01/21/24 13:40 Temperature 96 F L Temperature Source Temporal Pulse Rate 59 L Respiratory Rate 16 Blood Pressure 148/76 H Blood Pressure Mean 100 Pulse Ox 98 Oxygen Delivery Method Room Air Positive well nourished and well developed General Appearance ED: well developed; Negative for pallor HEENT HEENT Narrative: Normocephalic atraumatic Eyes PERRL and EOMs intact bilaterally Neck supple Neck Narrative: No bony deformity or step-off of the cervical spine no midline tenderness to palpation Resp normal respiratory effort and clear to auscultation bilaterally Cardio regular rate and regular rhythm Back/Spine Back/Spine Narrative: No bony deformity or step-off of the thoracic or lumbar spine no midline tenderness to palpation Extremity Extremity Narrative: Left lower extremity is neurovascularly intact. Patient has soft tissue swelling and ecchymosis to the anterior aspect of the left knee. Patellar tendon is intact and knee ligaments are stable. There is no obvious bony deformity or joint effusion. Neuro oriented x3, CN's II-XII intact bilaterally and no sensory deficits noted Sensorium / Orientation: alert Psych mental status grossly normal Skin no rashes or lesions noted Skin Narrative: Soft tissue swelling and ecchymosis to the left knee as documented above General Skin Exam: Negative for jaundice or pallor MDM MDM MDM Narrative Medical decision making narrative: Patient arrived to the ER mildly hypertensive but otherwise with stable vitals. She reported mechanical fall so I felt no need for cardiac or syncope workup. Also she did not strike her head or have loss of conscious nor does she take blood thinners there is no need for head CT. With pain and swelling to the left knee there is concern for fracture versus joint effusion versus ligamentous injury or patellar tendon injury. An x-ray was obtained which reveals no fracture dislocation or effusion. By exam there is no patellar tendon rupture or damage to the stabilizing ligament. Therefore patient has a contusion with hematoma and can be placed in an Vadim wrap and is otherwise safe for discharge as she is able to ambulate. History & Record Review Discussion w/independent historian: Patient Radiography Diagnostic Testing: Clinical Impression(s) from Imaging Studies Knee X-Ray 01/21/24 14:14 IMPRESSION: Degenerative arthrosis. Electronically Signed: Gabe Vang MD at 15:39 EDT Reading Location ID and State: [address] [place] [address] , Service support , X-ray of the left knee as interpreted by the emergency medicine physician reveals degenerative changes but otherwise no acute fracture dislocation or joint effusion Discharge Plan Triage Chief Complaint: Lower Extremity Injury ED Provider: Juan Dockery Dx/Rx/DC Orders Clinical Impression: Contusion of knee, left, Hematoma of left knee region, Accidental fall, Hypertension, Hyperlipidemia Instructions: Bone Contusion Prescriptions: No Action pravastatin 40 MG tablet 40 mg PO QHS omeprazole 40 MG capsule,delayed release(DR/EC) 40 mg PO DAILY aspirin 81 MG tablet,chewable 81 mg PO DAILY calcium carbonate-vitamin D3 1 EACH tablet 1 ea PO DAILY latanoprost 0.005 % drops 1 drp EACH EYE QHS meclizine 12.5 MG tablet 12.5 mg PO TID PRN PRN (Reason: Dizziness) Qty: 15 0RF methocarbamol 500 mg tablet 500 mg PO 4X/DAY PRN PRN (Reason: Muscle pain/spasm) Qty: 40 0RF Primary Care Provider: Braulio Meadows Referrals: Braulio Meadows MD [Primary Care Provider] - Activity Restrictions/Additional Instructions: Please wear your Vadim wrap for compression and to prevent further swelling. Ice the area for 10 to 20 minutes 3-4 times a day for the next 2 or 3 days to reduce pain and speed healing. Return to the ER should you have any further concerns Print Language: Maltese Disposition Disposition: Home, Self Care
[2024-01-21 16:13] VITALS: BP 150/86; PULSE 78; RESP 18; TEMP 36.6; O2SAT 96
== END 2024-01-21 16:13 | disposition home or self-care (01) ==
LOC: ED 16:03
PROVIDERS: Emergency Provider Emergency Medicine; PCP Family Medicine; Visit Provider Emergency Medicine
DX: S80.02XA Contusion of left knee, initial encounter (principal); W18.09XA Striking against other object with subsequent fall, initial encounter; Y93.01 Activity, walking, marching and hiking; Y92.59 Other trade areas as the place of occurrence of the external cause; I10 Essential (primary) hypertension; E78.5 Hyperlipidemia, unspecified; Z79.82 Long term (current) use of aspirin; Z79.899 Other long term (current) drug therapy
CPT/HCPCS: 73564; 99282

== ENCOUNTER 2024-03-28 21:53 | Emergency (ER) | payer MEDICARE, SELFPAY ==
[2024-03-28 21:54] VITALS: BP 163/91; PULSE 70; RESP 16; TEMP 36.4; O2SAT 98; BMI 30.9
--- NOTE | 2024-03-28 22:21 | RAD_ITS ---
EXAM: XR LUMBOSACRAL SPINE, 2 OR 3 VIEWS CLINICAL INDICATION: pain TECHNIQUE: Frontal and lateral views of the lumbar spine and sacrum. COMPARISON: No relevant prior studies available. FINDINGS: VERTEBRAE: There is facet hypertrophy at L4 and L5. Preserved vertebral body height. No fracture. No spondylolisthesis. Preservation of the normal lumbar lordosis. DISC SPACES: There is disc space narrowing at L4-5 and L5-S1. GASTROINTESTINAL TRACT: Unremarkable as visualized. Included bowel gas pattern is non-obstructive. RAD/Lumbar Spine 2 or 3 Views IMPRESSION: No acute osseous abnormalities of the lumbar spine. There are degenerative changes with disc space narrowing and facet hypertrophy in the lower lumbar spine. Electronically Signed: Remi Wick MD at 23:08 EDT ,
[2024-03-28] MEDS: Ketorolac 15 MG/ML Vial IM (22:28)
[2024-03-28] MEDS: Orphenadrine 60 MG/2 ML Ampul IM (22:29)
--- NOTE | 2024-03-28 22:40 | EX.ED.DYSGE1 ---
HPI History of Present Illness Chief Complaint: Flank Pain Informant: patient and family Narrative Narrative: Patient is an 83-year-old female with past medical history of hypertension hyperlipidemia. She states a few days ago she was using a roller to pick[employer] multiple bushels of nuts at home. She states she did not feel any sudden onset of pain but noticed a slight twinge in her left sided back following this. She states as the days have passed she has noticed that the pain has slowly worsened and it does seem to increase when she lies down and rotates or stands up. She denies any loss of bowel or bladder control or IV drug use. She denies any radiation into her legs. She states there is no hematuria or dysuria. However she has been trying [id number] medications with minimal symptom improvement and secondary to this comes in for evaluation [facility] Medical History Hyperlipemia Hypertension Glaucoma Home Medications ?Medication ?Instructions ?Recorded ?Last Taken ?Type aspirin 81 mg chewable tablet 81 mg PO DAILY heart health 02/09/19 06/27/19 History calcium carbonate-vitamin D3 600 1 ea PO DAILY supplement 02/09/19 06/26/19 History mg-125 unit tablet omeprazole 40 mg capsule,delayed 40 mg PO DAILY reflux 02/09/19 06/27/19 History release pravastatin 40 mg tablet 40 mg PO QHS cholesterol 02/09/19 06/26/19 History latanoprost 0.005 % eye drops 1 drp EACH EYE QHS glucoma 06/27/19 06/26/19 History meclizine 12.5 mg tablet 12.5 mg PO TID PRN PRN Dizziness 06/28/19 Unknown Rx #15 tabs methocarbamol 500 mg tablet 500 mg PO 4X/DAY PRN PRN Muscle 08/26/22 Unknown Rx pain/spasm #40 tabs methocarbamol 500 mg tablet 500 mg PO 4X/DAY PRN Muscle 03/28/24 Unknown Rx pain/spasm #40 tabs Allergy/AdvReac Type Severity Reaction Status Date / Time No Known Allergies Allergy Verified 03/28/24 21:55 Surgical History (Updated 08/26/22 @ 05:13 by Shawn Ly) History of cholecystectomy History of appendectomy Social History Smoking Status: Never smoker ROS ROS ED Constitutional Constitutional ED: Denies chills or fever(s) ENT ENT ED: Denies sore throat Cardiovascular Cardiovascular: Denies chest pain Respiratory/Chest Respiratory/Chest: Denies cough or dyspnea Gastrointestinal Gastrointestinal: Denies abdominal pain, diarrhea, nausea or vomiting Genitourinary Genitourinary ED: Denies dysuria, hematuria or urinary frequency Musculoskeletal Musculoskeletal: Reports back pain Integumentary Denies rash Neurologic Neurologic: Denies headache(s), paresthesias or weakness Hematologic/Lymphatic Hematologic/Lymphatic: Denies easy bleeding or easy bruising EXAM Physical Exam Const Vital Signs: 03/28/24 21:54 Temperature 97.5 F L Temperature Source Temporal Pulse Rate 70 Respiratory Rate 16 Blood Pressure 163/91 H Blood Pressure Mean 115 Pulse Ox 98 Oxygen Delivery Method Room Air Positive well nourished and well developed General Appearance ED: well developed; Negative for pallor HEENT HEENT Narrative: Normocephalic atraumatic Eyes PERRL and EOMs intact bilaterally Neck supple Resp normal respiratory effort and clear to auscultation bilaterally Cardio regular rate and regular rhythm Back/Spine Back/Spine Narrative: No bony deformity or step-off of the thoracic or lumbar spine but there is mild upper lumbar pain with palpation There is also muscle tension/spasm and tenderness to palpation along the left paralumbar muscle belly region which worsens with extension and rotation No saddle anesthesia. Negative straight leg raise. No clonus or Babinski. Patellar reflexes are plus 1 out of 4 bilaterally Extremity normal to inspection Neuro oriented x3, CN's II-XII intact bilaterally and no sensory deficits noted Sensorium / Orientation: alert Motor Exam: strength 5/5 throughout Psych mental status grossly normal Skin no rashes or lesions noted and no wounds Skin Narrative: No overlying soft tissue changes to suggest trauma or infection General Skin Exam: Negative for jaundice or pallor MDM MDM MDM Narrative Medical decision making narrative: Patient arrived to the ER hypertensive but otherwise with stable vitals. She reported gradual increasing left-sided low back pain that was worse with motion that began after repetitive yard/house work. She denied any loss of bowel or bladder control or IV drug use to go against cauda equina or epidural abscess. She denied any recent surgical procedures to suggest discitis. She denied any dysuria or hematuria going against UTI/pyelonephritis or kidney stone. She did have some mild midline tenderness so there is concern for potential compression fracture so an x-ray was obtained. X-ray revealed age-related changes without acute bony abnormality. Urine sample showed no blood going against kidney stone and no signs of infection. After treatment with Toradol and Norflex the patient was able to lie back in bed and reported improvement of her pain which indicated this is most likely musculoskeletal in nature. Therefore she is otherwise safe for discharge with symptomatic care History & Record Review Discussion w/independent historian: Patient and Family Lab Data Attestation: I reviewed the patient's lab results. Labs: Laboratory Results - last 24 hr 03/28/24 22:00 Urine Color Yellow Urine Clarity Clear Urine pH 6.0 Ur Specific [place] 1.010 Urine Protein Negative Urine Glucose (UA) Normal Urine Ketones Negative Urine Occult Blood Negative Urine Nitrite Negative Urine Bilirubin Negative Urine Urobilinogen Normal Ur Leukocyte Esterase 100 H Urine RBC 0-5 SEEN Urine WBC 0-5 SEEN Ur Squamous Epith Cells 0-5 SEEN Ur Transition Epith Cell 0-5 SEEN Urine Bacteria RARE Urine Mucus 0 SEEN Radiography Diagnostic Testing: Clinical Impression(s) from Imaging Studies Lumbar Spine X-Ray 03/28/24 22:21 IMPRESSION: No acute osseous abnormalities of the lumbar spine. There are degenerative changes with disc space narrowing and facet hypertrophy in the lower lumbar spine. Electronically Signed: Remi Wick MD at 23:08 EDT , X-ray of the lumbar spine as interpreted by the emergency medicine physician reveals age-related changes without acute compression fracture or spondylolisthesis Discharge Plan Triage Chief Complaint: Flank Pain ED Provider: Juan Dockery Dx/Rx/DC Orders Clinical Impression: Acute myofascial strain of lumbosacral region, Hypertension, Hyperlipidemia Instructions: Understanding Lumbosacral Strain, ED Back Sprain/Strain Prescriptions: New methocarbamol 500 mg tablet 500 mg PO 4X/DAY PRN (Reason: Muscle pain/spasm) Qty: 40 0RF No Action pravastatin 40 MG tablet 40 mg PO QHS omeprazole 40 MG capsule,delayed release(DR/EC) 40 mg PO DAILY aspirin 81 MG tablet,chewable 81 mg PO DAILY calcium carbonate-vitamin D3 1 EACH tablet 1 ea PO DAILY latanoprost 0.005 % drops 1 drp EACH EYE QHS meclizine 12.5 MG tablet 12.5 mg PO TID PRN PRN (Reason: Dizziness) Qty: 15 0RF methocarbamol 500 mg tablet 500 mg PO 4X/DAY PRN PRN (Reason: Muscle pain/spasm) Qty: 40 0RF Primary Care Provider: Braulio Meadows Referrals: Braulio Meadows MD [Primary Care Provider] - Activity Restrictions/Additional Instructions: Please continue to stretch and heat your low back to reduce pain and speed healing. Take the muscle relaxer along with Tylenol and use [id number] topical treatments such as Voltaren or lidocaine to help with symptoms. Return to the ER should you have any further concerns Print Language: Slovak Disposition Disposition: Home, Self Care
[2024-03-28 22:42] LABS: Mucous, Urine 0 SEEN /hpf (<or=2+)
[2024-03-28 22:44] LABS: Color, Urine Yellow (Yellow); Glucose, Dipstick Normal (Normal); Ketone-Dipstick Negative (Negative); Leukocyte Esterase-Dipstick 100 /ul (Negative); Nitrite-Dipstick Negative (Negative); Occult Blood-Urine Negative /ul (Negative); Protein-Dipstick Negative (Negative); Urine Bilirubin Dipstick Negative (Negative); Urine Clarity Clear (Clear); Urine Urobilinogen Normal (Normal)
[2024-03-28 22:53] LABS: Bacteria RARE /hpf (None Seen); Transitional Epithelial - Ur 0-5 SEEN /hpf (0-5); White Blood Cells 0-5 SEEN /hpf (0-5)
[2024-03-28 22:54] LABS: Red Blood Cells-Urine 0-5 SEEN /hpf (0-5); Squamous Epithelial Cells - UA 0-5 SEEN /hpf (5-10)
== END 2024-03-28 23:29 | disposition home or self-care (01) ==
PROVIDERS: Emergency Provider Emergency Medicine; PCP Family Medicine; Referring Provider Emergency Medicine; Visit Provider Emergency Medicine
DX: R10.9 Unspecified abdominal pain (principal); S39.012A Strain of muscle, fascia and tendon of lower back, initial encounter; E78.5 Hyperlipidemia, unspecified; I10 Essential (primary) hypertension; X50.9XXA Other and unspecified overexertion or strenuous movements or postures, initial encounter; Y93.89 Activity, other specified; Y92.009 Unspecified place in unspecified non-institutional (private) residence as the place of occurrence of the external cause; Z79.82 Long term (current) use of aspirin; Z79.899 Other long term (current) drug therapy; Z90.49 Acquired absence of other specified parts of digestive tract
CPT/HCPCS: 72100; 81001; 99283

== ENCOUNTER 2024-04-25 07:44 | Emergency (ER) | payer MEDICARE, SELFPAY ==
[2024-04-25 07:45] VITALS: BP 150/83; PULSE 75; RESP 19; TEMP 36.2; O2SAT 97; BMI 30.6
== END 2024-04-25 09:38 | disposition home or self-care (01) ==
PROVIDERS: Emergency Provider Emergency Medicine; PCP Family Medicine; Visit Provider Emergency Medicine
DX: M79.632 Pain in left forearm (principal); I10 Essential (primary) hypertension; E78.5 Hyperlipidemia, unspecified; Z90.49 Acquired absence of other specified parts of digestive tract; Z79.82 Long term (current) use of aspirin; Z85.828 Personal history of other malignant neoplasm of skin
CPT/HCPCS: 73090; 99282

== ENCOUNTER 2025-04-15 17:54 | Emergency (ER) | payer MEDICARE, SELFPAY ==
[2025-04-15 17:57] VITALS: BP 156/83; PULSE 62; RESP 18; TEMP 36.9; O2SAT 97; BMI 32.9
--- NOTE | 2025-04-15 18:31 | CT_ITS ---
PROCEDURE: BRAIN/HEAD WITHOUT CONTRAST; SINUS/FACIAL BONE; SPINE CERVICAL WITHOUT CONTRAS 04/15/2025 REASON FOR EXAM: TRAUMA TECHNIQUE: Procedure Code: CTBR; CTSI; CTSPC Modality: CT Procedure: BRAIN/HEAD WITHOUT CONTRAST; SINUS/FACIAL BONE; SPINE CERVICAL WITHOUT CONTRAS Coronal and Sagittal reconstruction series were provided. One or more dose reduction techniques were used (e.g., Automated exposure control, adjustment of the mA and/or kV according to patient size, use of iterative reconstruction technique. FINDINGS: CT head: Moderate global parenchymal atrophy. Periventricular white matter hypodensity likely representing moderate chronic microvascular ischemia. The paranasal sinuses and mastoid air cells are clear. The calvarial vault and skull base are intact. CT sinuses: No evidence acute fracture or dislocation. The paranasal sinuses are clear. The globes are intact. CT cervical spine: No evidence of acute fracture or dislocation. Moderate degenerative changes of the visualized spine. Vertebral body heights are maintained. Normal alignment. CT/Spine Cervical without Contras IMPRESSION: No acute intracranial abnormality. No acute facial bone fracture. No acute cervical spine fracture. Reading Location: [id number]
--- NOTE | 2025-04-15 18:31 | CT_ITS ---
PROCEDURE: BRAIN/HEAD WITHOUT CONTRAST; SINUS/FACIAL BONE; SPINE CERVICAL WITHOUT CONTRAS 04/15/2025 REASON FOR EXAM: TRAUMA TECHNIQUE: Procedure Code: CTBR; CTSI; CTSPC Modality: CT Procedure: BRAIN/HEAD WITHOUT CONTRAST; SINUS/FACIAL BONE; SPINE CERVICAL WITHOUT CONTRAS Coronal and Sagittal reconstruction series were provided. One or more dose reduction techniques were used (e.g., Automated exposure control, adjustment of the mA and/or kV according to patient size, use of iterative reconstruction technique. FINDINGS: CT head: Moderate global parenchymal atrophy. Periventricular white matter hypodensity likely representing moderate chronic microvascular ischemia. The paranasal sinuses and mastoid air cells are clear. The calvarial vault and skull base are intact. CT sinuses: No evidence acute fracture or dislocation. The paranasal sinuses are clear. The globes are intact. CT cervical spine: No evidence of acute fracture or dislocation. Moderate degenerative changes of the visualized spine. Vertebral body heights are maintained. Normal alignment. CT/Sinus/Facial Bone IMPRESSION: No acute intracranial abnormality. No acute facial bone fracture. No acute cervical spine fracture. Reading Location: [id number]
--- NOTE | 2025-04-15 18:31 | CT_ITS ---
PROCEDURE: BRAIN/HEAD WITHOUT CONTRAST; SINUS/FACIAL BONE; SPINE CERVICAL WITHOUT CONTRAS 04/15/2025 REASON FOR EXAM: TRAUMA TECHNIQUE: Procedure Code: CTBR; CTSI; CTSPC Modality: CT Procedure: BRAIN/HEAD WITHOUT CONTRAST; SINUS/FACIAL BONE; SPINE CERVICAL WITHOUT CONTRAS Coronal and Sagittal reconstruction series were provided. One or more dose reduction techniques were used (e.g., Automated exposure control, adjustment of the mA and/or kV according to patient size, use of iterative reconstruction technique. FINDINGS: CT head: Moderate global parenchymal atrophy. Periventricular white matter hypodensity likely representing moderate chronic microvascular ischemia. The paranasal sinuses and mastoid air cells are clear. The calvarial vault and skull base are intact. CT sinuses: No evidence acute fracture or dislocation. The paranasal sinuses are clear. The globes are intact. CT cervical spine: No evidence of acute fracture or dislocation. Moderate degenerative changes of the visualized spine. Vertebral body heights are maintained. Normal alignment. CT/Brain/Head without Contrast IMPRESSION: No acute intracranial abnormality. No acute facial bone fracture. No acute cervical spine fracture. Reading Location: [id number]
--- NOTE | 2025-04-15 18:32 | EX.ED.GENINJ ---
HPI History of Present Illness Chief Complaint: Fall Narrative Narrative: 84-year-old female who denies significant past medical history presents with her daughter and grandson status post mechanical fall. She states that she was outside at the [employer] store. She was up on the sidewalk and leaned forward to look around the building. She lost her balance and fell forward. She denies any prodromal chest pain or shortness of breath. She sustained abrasions and lacerations to her face, mainly her upper lip and to her nose and forehead. She denies loss of consciousness. She complains of mild diffuse neck pain worse with movement. She also fell onto her left knee. She states she does not take blood thinners. She is unsure of her last tetanus immunization. She denies other injuries, but her daughter states that she thought maybe patient broke her nose. [facility] Medical History Hyperlipemia Hypertension Glaucoma Home Medications ?Medication ?Instructions ?Recorded ?Last Taken ?Type aspirin 81 mg chewable tablet 81 mg PO DAILY heart health 02/09/19 06/27/19 History calcium carbonate-vitamin D3 600 1 ea PO DAILY supplement 02/09/19 06/26/19 History mg-125 unit tablet omeprazole 40 mg capsule,delayed 40 mg PO DAILY reflux 02/09/19 06/27/19 History release pravastatin 40 mg tablet 40 mg PO QHS cholesterol 02/09/19 06/26/19 History latanoprost 0.005 % eye drops 1 drp EACH EYE QHS glucoma 06/27/19 06/26/19 History meclizine 12.5 mg tablet 12.5 mg PO TID PRN PRN Dizziness 06/28/19 Unknown Rx #15 tabs methocarbamol 500 mg tablet 500 mg PO 4X/DAY PRN PRN Muscle 08/26/22 Unknown Rx pain/spasm #40 tabs methocarbamol 500 mg tablet 500 mg PO 4X/DAY PRN Muscle 03/28/24 Unknown Rx pain/spasm #40 tabs Allergy/AdvReac Type Severity Reaction Status Date / Time No Known Allergies Allergy Verified 04/15/25 17:56 Surgical History History of carpal tunnel surgery of right wrist History of carpal tunnel surgery of left wrist History of cholecystectomy History of appendectomy Social History Smoking Status: Never smoker ROS ROS ED ROS Narrative Review of systems is positive for abrasions to forehead and nose and upper lip and skin in between nose and upper lip. Patient complains of diffuse neck pain worse with movement. No paresthesias of arms or legs. Mild left knee pain worse with movement. Denies other injuries. No loss of consciousness. Does not take blood thinners. EXAM Physical Exam Narrative Exam Narrative: GCS 15. ABCs intact. Inspection of the face does show multiple abrasions without active bleeding. No nasal septal hematoma. No crepitance of face. No raccoon eyes. Neck is soft and supple with minimal diffuse tenderness to palpation. No point tenderness or bony step-off. Cardiovascular semination regular rate and rhythm. Lungs are clear to auscultation bilaterally. Abdomen is soft and nontender with normoactive bowel sounds. Pelvis stable. Able to flex and extend bilateral knees. Neurovascular intact distally. Const Vital Signs: 04/15/25 17:57 04/15/25 17:59 Temperature 98.5 F Temperature Source Oral Pulse Rate 62 Respiratory Rate 18 Respiratory Effort Normal Non-Labored Respiratory Depth Normal Respiratory Pattern Normal Blood Pressure 156/83 H Blood Pressure Mean 107 Pulse Ox 97 Oxygen Delivery Method Room Air MDM MDM MDM Narrative Medical decision making narrative: The differential diagnosis includes but not limited to intracranial hemorrhage versus closed head injury versus nasal fracture versus contusion. Her abrasions will be cleansed and dressed. She was given a tetanus immunization/Tdap immunization. CT of the brain, face, and cervical spine will be obtained as well as x-ray of the left knee. She may have more of a knee contusion than a tibial plateau fracture based on her clinical examination. I feel that this was a mechanical fall and I do not feel laboratory work is indicated. X-ray of the left knee interpreted by myself independently shows no evidence of an acute fracture. I reviewed the radiology report which confirms my independent interpretation. I reviewed the radiology reports of the CT of the brain, cervical spine, and facial bones. There is no evidence of acute fracture, no intracranial abnormality or hemorrhage. No cervical spine fracture, no facial bone fracture including nasal bone fracture. Her wounds will be cleansed by the RN with bacitracin dressing. Feel these are more abrasions. She is given tramadol which she usually takes for analgesia. At this point in time, I feel she can be discharged to follow-up. Return instructions to the emergency department were reviewed. Disposition is discharged home in stable condition. History & Record Review Discussion w/independent historian: Patient and Family Additional record(s) reviewed:: Prior ED visit (Previous fall in January 2024) Radiography Diagnostic Testing: Clinical Impression(s) from Imaging Studies Brain CT 04/15/25 18:31 IMPRESSION: No acute intracranial abnormality. No acute facial bone fracture. No acute cervical spine fracture. Reading Location: [facility] Cervical Spine CT 04/15/25 18:31 IMPRESSION: No acute intracranial abnormality. No acute facial bone fracture. No acute cervical spine fracture. Reading Location: [facility] Facial/Sinus 04/15/25 18:31 IMPRESSION: No acute intracranial abnormality. No acute facial bone fracture. No acute cervical spine fracture. Reading Location: [facility] Knee X-Ray 04/15/25 18:40 IMPRESSION: No acute bony abnormality visualized. If concern persists, consider CT. Reading Location: [facility] Discharge Plan Triage Chief Complaint: Fall ED Provider: Pranay Arteaga Dx/Rx/DC Orders Clinical Impression: Nasal contusion, Fall, Abrasion of face, Contusion of knee, left Instructions: ED Abrasion, ED Contusion, Lower Extremity, ED Facial Contusion, ED Mechanical Fall, ED Nasal Contusion Prescriptions: No Action pravastatin 40 MG tablet 40 mg PO QHS omeprazole 40 MG capsule,delayed release(DR/EC) 40 mg PO DAILY aspirin 81 MG tablet,chewable 81 mg PO DAILY calcium carbonate-vitamin D3 1 EACH tablet 1 ea PO DAILY latanoprost 0.005 % drops 1 drp EACH EYE QHS meclizine 12.5 MG tablet 12.5 mg PO TID PRN PRN (Reason: Dizziness) Qty: 15 0RF methocarbamol 500 mg tablet 500 mg PO 4X/DAY PRN PRN (Reason: Muscle pain/spasm) Qty: 40 0RF methocarbamol 500 mg tablet 500 mg PO 4X/DAY PRN (Reason: Muscle pain/spasm) Qty: 40 0RF Primary Care Provider: Braulio Meadows Referrals: Braulio Meadows MD [Primary Care Provider, Medical] - 3-5 Days if not improving Activity Restrictions/Additional Instructions: Follow-up with your primary care provider and/or your pain management physician. Return with new or worsening symptoms. Tramadol as previously directed for pain. You may use [id number] medications such as Tylenol or ibuprofen as well. Print Language: Irish Disposition Disposition: Home, Self Care
--- NOTE | 2025-04-15 18:40 | RAD_ITS ---
PROCEDURE: KNEE 4 OR MORE VIEWS 04/15/2025 REASON FOR EXAM: TRAUMA TECHNIQUE: Procedure Code: RADKN Modality: DX procedure: KNEE 4 OR MORE VIEWS Laterality: Left COMPARISON: None FINDINGS: There is tricompartmental joint space narrowing most pronounced in the medial compartment. There is no definite acute fracture or dislocation. There is trace joint fluid present. There is some calcification along the proximal course of the MCL which may reflect an old MCL injury. RAD/Knee 4 or More Views IMPRESSION: No acute bony abnormality visualized. If concern persists, consider CT. [facility]
--- OUTSIDE RECORDS SUMMARY | 2025-04-15 19:25 | XMS RPT_ITS | CCD ---
Author Organization [facility] Care Team Providers Care Job Captain Name Role Phone Braulio Whitney MD Primary Care Provider October RN, Cece Mann Unavailable Braulio Whitney MD Primary Care Provider Dixon RN, Sosa Unavailable [phone] Dixon RN, Sosa Unavailable BRAULIO WHITNEY MD Consulting Unavailable JASMIN ROMERO Attending Unavailable JASMIN ROMERO Primary Care Unavailable JASMIN ROMERO Admitting Unavailable PROVIDER, UNKNOWN Consulting Unavailable Braulio Whitney MD Primary Care Provider Barry LONG MD, Brock Schuster Primary Care Provider Gabi vailable Devonte, Braulio Primary Care Unavailable Juan Dockery Attending Unavailable Devin Arroyo Attending Unavailable Devonte, Braulio Primary Care Unavailable Juan Dockery Referring Unavailable Juan Dockery Attending Unavailable Devonte, Braulio Primary Care Unavailable Donell ENROLLMENT ELIGIBILITY REPRESENTATIVE.Nina JC Unavailable Skyler ENROLLMENT ELIGIBILITY REPRESENTATIVE.HOSEA, Marii A Unavailable JAMEY DYE Attending Unavailable BRAULIO WHITNEY Primary Care Unavailable ZAHIDA PERRY Attending Unavailable BRAULIO WHITNEY Primary Care Unavailable NINA MARLEY Attending Unavailable DEVONTE, BRAULIO Mann Primary Care Unavailable DEVONTE, BRAULIO Mann Primary Care Unavailable BRAULIO WHITNEY Attending Unavailable BRAULIO WHITNEY Referring Unavailable DEVONTE, BRAULIO Mann Primary Care Unavailable DEVONTE, BRAULIO Mann Referring Unavailable DEVONTE, BRAULIO Mann Primary Care Unavailable DEVONTE, BRAULIO Mann Primary Care Unavailable BRAULIO WHITNEY Attending Unavailable LAURIE WILSON Attending Unavailable DEVONTE, BRAULIO Mann Primary Care Unavailable NINA MARLEY Referring Unavailable DEVONTE, BRAULIO Mann Primary Care Unavailable DEVONTE, BRAULIO Mann Primary Care Unavailable NINA MARLEY Referring Unavailable MARII RED Attending Unavailable DEVONTE, BRAULIO Mann Primary Care Unavailable DEVONTE, BRAULIO Mann Primary Care Unavailable NINA MARLEY Attending Unavailable DEVONTE, BRAULIO Mann Primary Care Unavailable MICHAEL RUSSO Attending Unavailable GRACE BRICEÑO Attending Unavailable DEVONTE, BRAULIO Mann Primary Care Unavailable DEVONTE, BRAULIO Mann Primary Care Unavailable DEVONTE, BRAULIO Mann Referring Unavailable DONELL, NINA Referring Unavailable DEVONTE, BRAULIO Mann Primary Care Unavailable DEVONTE, BRAULIO Mann Primary Care Unavailable MICHAEL RUSSO Attending Unavailable DONELL, NINA Referring Unavailable DEVONTE, BRAULIO Mann Primary Care Unavailable HAMAKENZIE, NINA Referring Unavailable GOLJORDAN, MICHAEL Attending Unavailable DONELL, NINA Referring Unavailable DEVONTE, BRAULIO Mann Primary Care Unavailable RAFY RAZA Attending Unavailable DEVONTE, BRAULIO Mann Primary Care Unavailable LAURIE WILSON Referring Unavailable DEVONTE, BRAULIO Mann Primary Care Unavailable MICHAEL RUSSO Attending Unavailable DONELL, NINA Referring Unavailable Medications Current Medications Medication Drug Class(es) Dates Sig (Normalized) Sig (Original) acetaminophen 325 mg / HYDROcodone bitartrate 5 mg oral tablet (4 sources) Opioid Agonist Start: 01-29-2022 End: 02-03-2022 take 1 tablet by mouth every eight hours as needed for pain HYDROcodone-aceta minophen (NORCO) 5-325 mg per tablet Indications: Carpal tunnel syndrome of left wrist Take 1 tablet by mouth every 8 hours as needed for pain for up to 5 days. 15 tablet 0 01/29/2022 02/03/2022 Active Start: 09-14-2020 End: 09-17-2020 take 1 tablet by mouth every six hours as needed Hydrocodone-Acetaminophen Discontinued 1 TABLET PO EVERY 6 HOURS NEEDED 10 3 September 14, 2020 September 16, 2020 11:03pm Start: 02-09-2019 End: 02-17-2019 take 1 tablet by mouth every six hours as needed Hydrocodone-Acetaminophen Discontinued 1 TABLET PO EVERY 6 HOURS NEEDED 10 3 February 09, 2019 February 16, 2019 11:08pm Comment on above: Take 1 tablet by tex th every 8 hours as needed for pain for up to 5 days. Blood Pressure Cuff - Home Use (20 sources) Start: 03-05-2019 Blood Pressure Cuff - Home Use Indications: CKD (chronic kidney disease) stage 3, GFR 30-59 ml/min (HCC) , Elevated BP without diagnosis of hypertension BLOOD PRESSURE CUFF FOR HOME USE. DX: LABILE BLOOD PRESSURE 1 Each 03/05/2019 Active Start: 03-05-2019 Blood Pressure Cuff - Home Use Indications: CKD (chronic kidney disease) stage 3, GFR 30-59 ml/min (HCC) , Elevated BP without diagnosis of hypertension BLOOD PRESSURE CUFF FOR HOME USE. DX: LABILE BLOOD PRESSURE 1 Each 0 03/05/2019 Active Comment on above: BLOOD PRESSURE CUFF FOR HOME USE. DX: LABILE BLOOD PRESSURE calcium carbonate 600 mg / cholecalciferol 125 unt oral tablet (1 source) Vitamin D Start: 9 Calcium Carbonate-Vitami n D3 Active 1 EACH PO DAILY February 08, 2019 11:00pm Calcium Carbonate / Ergocalciferol (20 sources) Provitamin D2 Compound Start: take 1 tablet by mouth once daily Calcium Carbonate-Vitami n D2 600 mg calcium- 200 unit tab Take 1 tablet by mouth once daily. 30 tablet 0 10/31/2020 Active Start: 10-31-2020 take 1 tablet by tex th once daily Calcium Carbonate-Vitamin D2 (CALCIUM + D) 600 mg calcium- 200 unit ORAL Tab Take 1 tablet by mouth once daily. 30 tablet 0 10/31/2020 Active Comment on above: Take 1 tablet by tex th once daily. DULoxetine 30 mg delayed release oral capsule (9 sources) Serotonin and Norepinephrine Reuptake Inhibitor Start: take 1 capsule by mouth once daily DULoxetine DR (CYMBALTA) 30 mg capsule Take 1 capsule by mouth once daily. 30 capsule 2 01/02/2025 Active Start: 11-30-2024 End: 02-28-2025 take 1 capsule by mouth once daily DULoxetine (CYMBALTA) 20 mg capsule Indications: Sciatica of right side Take 1 capsule by mouth once daily. 30 capsule 2 11/30/2024 01/02/2025 Discontinued (Dosage adjustment) hydroCHLOROthiazide 12.5 mg / lisinopril 10 mg oral tablet (20 sources) Thiazide Diuretic, Angiotensin Converting Enzyme Inhibitor Start: 07-08-2021 End: 04-01-2025 take 10-12.5 mg by mouth once in the morning lisinopril-hydroCHLOROthiazide (ZESTORETIC) 10-12.5 mg per tablet Take 1 tablet by mouth every morning. 90 tablet 3 10/03/2024 04/01/2025 Active Start: 04-29-2020 End: 09-04-2020 take 1 tablet by mouth once daily lisinopril-hydrochlorothiazide (PRINZIDE,ZESTORETIC) 20-12.5 mg per tablet Indications: Essential hypertension, benign Take 1 tablet by mouth once daily. 90 tablet 3 04/29/2020 09/04/2020 Discontinued Comment on above: Take 1 tablet by tex th every morning. hydrocortisone 10 mg/ml / neomycin 3.5 mg/ml / polymyxin b 18050 unt/ml otic solution (8 sources) Aminoglycoside Antibacterial, Polymyxin-class Antibacterial, Corticosteroid Start: 02-12-2022 End: 02-17-2022 [id number] drocortisone (CORTISPORIN) otic solution Indications: Dermatitis of ear canal, left Use 3 Drops in the left ear four times daily for 5 days. 10 mL 0 02/12/2022 02/17/2022 Active Start: 01-04-2022 End: 01-27-2022 [id number] isone (CORTISPORIN) otic solution Indications: Ear itching Use 3 Drops in the left ear four times daily. 10 mL 0 01/04/2022 01/27/2022 Discontinued Comment on above: Use 3 Drops in the l eft ear four times daily. Use 3 Drops in the l eft ear four times daily for 5 days. latanoprost 0.05 mg/ml ophthalmic solution (20 sources) Prostaglandin Analog Start: 3 End: take 1 drop(s) into the eye(s) once daily at bedtime latanoprost (XALATAN) 0.005 % ophthalmic solution Use 1 Drop in both eyes daily at bedtime. TO AFFECTED EYE(S) 2.5 mL 3 05/18/2023 Active Start: 05-14-2013 take 1 drop(s) into the eye(s) once daily at bedtime latanoprost (XALATAN) 0.005 % ophthalmic solution Use 1 Drop in both eyes daily at bedtime. TO AFFECTED EYE(S) 0 05/14/2013 Active Comment on above: Use 1 Drop in both e yes daily at bedtime. TO AFFECTED EYE(S) lidocaine 0.05 mg/mg medicated patch (4 sources) Antiarrhythmic, Amide Local Anesthetic Start : 11-30 End: 12-30 apply 1 dose transdermal route once daily lidocaine (LIDODERM) 5 % Indications: Sciatica of right side Apply 1 patch as directed once daily. REMOVE AFTER 12 HOURS. 3 patch 11/30/2024 12/30/2024 Active meclizine hydrochloride 12.5 mg oral tablet (1 source) Antiemetic Start : 06-28 take 12.5 mg by mouth three times daily as needed Meclizine Active 12.5 MG PO 3 TIMES DAILY NEEDED June 28, 2019 12:00am methocarbamol 500 mg oral tablet (1 source) Muscle Relaxant Start : 08-26 take 500 mg by mouth four times daily as needed Methocarbamol Active 500 MG PO 4 TIMES DAILY NEEDED August 26, 2022 6:42am methylPREDNISolone (3 sources) Corticosteroid Start : 11-30 End: 12-06 methylPREDNISolone (MEDROL, [place],) 4 mg Dose-Pack Indications: Sciatica of right side Follow dosing instructions, take with food. 21 tablet 11/30/2024 12/06/2024 Active Start: 03-17-2023 End: 03-23-2023 methylPREDNISolone (MEDROL, [place],) 4 mg Dose-Pack Indications: Bronchitis Follow dosing instructions, take with food. 21 tablet 03/17/2023 03/23/2023 Start: 03-17-2023 End: 03-23-2023 methylPREDNISolone (MEDROL, [place],) 4 mg Dose-Pack Indications: Bronchitis Follow dosing instructions, take with food. 21 tablet 0 03/17/2023 03/23/2023 Active Comment on above: Follow dosing instru ctions, take with food. omeprazole 40 mg delayed release oral capsule (20 sources) Proton Pump Inhibitor Start: 02-10-20 End: 10-24-19 take 1 capsule by mouth once daily omeprazole (PRILOSEC) 40 mg capsule Take 1 capsule by mouth once daily. 90 capsule 3 10/23/2024 Active Comment on above: Take 1 capsule by [facility] once daily. polyethylene glycol 3350 [id number] mg / potassium chloride 2970 mg / sodium bicarbonate 6740 mg / sodium chloride 5860 mg / sodium sulfate 22031 mg powder for oral solution (1 source) Osmotic Laxative Start: 09-07-19 End: 09-07-19 peg 3350-Electrolytes (GOLYTELY) 236-22.74-6.74 -5.86 gram suspension Indications: Screen for colon cancer Take 4,000 mL by mouth one time only for 1 dose. Refer to printed prep instructions from your provider. 4000 mL 09/06/2024 09/06/2024 Active pravastatin sodium 40 mg oral tablet (20 sources) HMG-CoA Reductase Inhibitor Start: 02-10-20 End: 10-24-19 take 1 tablet by mouth once daily pravastatin (PRAVACHOL) 40 mg tablet Indications: Hyperlipidemia with target LDL less than 130 Take 1 tablet by mouth once daily. 90 tablet 3 10/23/2024 Active Comment on above: Take 1 tablet by tex th once daily. predniSONE 10 mg oral tablet (9 sources) Start: 11-03-19 End: 11-15-19 predniSONE (DELTASONE) 10 mg tablet Indications: Bilateral leg pain , Primary osteoarthritis of both knees , Spinal stenosis of lumbar region with neurogenic claudication Take 4 tabs daily x 3 days, then 3 tabs x 3 days, 2 tabs x 3 days, then 1 tab x3 days with food. 30 tablet 11/02/2024 11/14/2024 Active Start: 02-04-2023 End: 02-10-2023 take 1 tablet by mouth once daily at mealtime predniSONE (DELTASONE) 20 mg tablet Indications: Acute pain of right knee Take 1 tablet by mouth once daily for 5 days. Take daily with food. 5 tablet 02/04/2023 02/05/2023 Discontinued Comment on above: Take 1 tablet by tex th once daily for 5 days. Take daily with food. Completed/Discontinued Medications Medication Drug Class(es) Dates Sig (Normalized) Sig (Original) [id number] 200 actuat albuterol 0.09 mg/actuat metered dose inhaler (13 sources) beta2-Adrenergic Agonist Start: 03-17-2023 End: 09-30-2023 take 2 puff(s) by inhalation every four hours as needed for wheezing albuterol HFA (VENTOLIN HFA) 90 mcg/actuation inhaler Indications: Bronchitis Inhale 2 Puffs as instructed every 4 hours as needed for wheezing/shortness of breath. 1 Each 03/17/2023 09/30/2023 Discontinued (Other) Comment on above: Inhale 2 Puffs as in structed every 4 hours as needed for wheezing/shortness of breath. aspirin 81 mg chewable tablet (3 sources) Platelet Aggregation Inhibitor, Nonsteroidal Anti-inflammatory Drug Start: 12-03-2005 End: 10-19-2021 ADULT ASPIRIN 81 MG CHEWABLE TAB Take one(1) tablet daily. 30 0 12/03/2005 10/19/2021 Discontinued Comment on above: Take one(1) tablet d aily. calcium chloride 0.0014 meq/ml / potassium chloride 0.004 meq/ml / sodium chloride 0.103 meq/ml / sodium lactate 0.028 meq/ml injectable solution (1 source) Start: 10-24-2024 End: 10-24-2024 take 30 mL intravenously every hour 30 mL/hr, INTRAVENOUS, CONTINUOUS, Starting on Tue10/24/24 at 1030, Until Tue10/24/24 at 1148, Preprocedure doxycycline monohydrate 100 mg oral tablet (3 sources) Tetracycline-class Drug Start: 03-17-2023 End: 03-27-2023 take 1 tablet by mouth twice daily doxycycline monohydrate 100 mg tablet Indications: Bronchitis Take 1 tablet by mouth twice daily for 10 days. 20 tablet 03/17/2023 03/27/2023 Comment on above: Take 1 tablet by tex twice daily for 10 days. famotidine 20 mg oral tablet (18 sources) Histamine-2 Receptor Antagonist Start: 03-17-2023 End: 08-25-2023 take 1 tablet by mouth every twenty-four hours as needed famotidine (PEPCID) 20 mg tablet Take 1 tablet by mouth at bedtime as needed. 30 tablet 03/17/2023 08/25/2023 Discontinued (Clinical Decision) Start: 02-13-2021 End: 01-27-2022 take 1 tablet by mouth once daily at bedtime famotidine (PEPCID) 20 mg tablet Indications: Gastroesophageal reflux disease without esophagitis Take 1 tablet by mouth daily at bedtime. 30 tablet 2 02/13/2021 01/27/2022 Discontinued Comment on above: Take 1 tablet by tex th daily at bedtime. Take 1 tablet by tex th at bedtime as needed. 1 ml fentaNYL 0.05 mg/ml injection (1 source) Opioid Agonist Start: End: 25-100 mcg, INTRAVENOUS, DIRECTED, Starting on Tue10/24/24 at 1130, Until Tue10/24/24 at 1529, DOSING DIRECTED BY PHYSICIAN FOR PROCEDURAL SEDATION ONLY, Intraprocedure gabapentin 100 mg oral capsule (20 sources) Anti-epileptic Agent Start: End: take 1 capsule by mouth twice daily gabapentin (NEURONTIN) 100 mg capsule Indications: Chronic pain syndrome , Neuropathy - (NOS) , Pain in left forearm Take 1 capsule by mouth two times a day for 30 days. 11/02/2024 11/30/2024 Discontinued Start: 11-02-2024 End: 12-02-2024 take 2 capsules by mouth once daily at bedtime gabapentin (NEURONTIN) 100 mg capsule Indications: Chronic pain syndrome , Neuropathy - (NOS) , Pain in left forearm Take 2 capsules by mouth daily at bedtime for 30 days. 11/02/2024 11/30/2024 Discontinued (Discontinued by Patient) Start: 07-17-2024 End: 11-02-2024 take 1 capsule by mouth three times daily gabapentin (NEURONTIN) 100 mg capsule Take 100 mg by mouth three times a day. 07/17/2024 11/02/2024 Discontinued (Changing Therapy/Dosage Form) Start: 09-12-2023 End: 04-04-2024 take 1 capsule by mouth three times daily gabapentin (NEURONTIN) 100 mg capsule Take 100 mg by mouth three times a day. 09/12/2023 04/04/2024 Discontinued Comment on above: Take 100 mg by mouth three times a day. metroNIDAZOLE 0.0075 mg/mg topical gel (15 sources) Nitroimidazole Antimicrobial Start: 023 End: metroNIDAZOLE (METROGEL) 0.75 % Topical Gel Indications: Rosacea Apply to affected area twice daily. 45 g 02/04/2023 02/05/2023 Discontinued Comment on above: Apply to affected ar ea twice daily. 5 ml midazolam 1 mg/ml injection (1 source) Benzodiazepine Start: 025 End: 025 1-5 mg, INTRAVENOUS, DIRECTED, Starting on Tue10/24/24 at 1130, Until Tue10/24/24 at 1529, DOSING DIRECTED BY PHYSICIAN FOR PROCEDURAL SEDATION ONLY, Intraprocedure naproxen sodium 220 mg oral tablet (20 sources) Nonsteroidal Anti-inflammatory Drug End: 024 take 1 tablet by mouth twice daily at mealtime naproxen sodium (ANAPROX) 220 mg tablet Take 220 mg by mouth twice daily with meals. 09/30/2023 Discontinued (Other) Comment on above: Take 220 mg by mouth twice daily with meals. Polyethylene Glycols (20 sources) End: 025 polyethylene glycol 3350 (MIRALAX ORAL) Take by mouth. 09/06/2024 Discontinued (Discontinued by Patient) polyethylene gly col 3350 (MIRALAX ORAL) Take by mouth. Active polyethylene gly col 3350 (MIRALAX ORAL) Take by mouth. 0 Active Comment on above: Take by mouth. Problems Active Problems Problem Classification Problem Date Documented Da te Episodic/Chronic Abdominal pain (1 source) Right upper quadrant pain; Translations: [Right upper quadrant pain] 03-24-2023 Episodic Chronic kidney disease (20 sources) Chronic kidney disease stage 3A ; Translations: [Stage 3a chronic kidney disease (HCC)] Onset: 9 Chronic Chronic kidney disease (1 source) Chronic kidney disease; Translations: [Stage 3a chronic kidney disease (HCC)] Onset: 1 Chronic obstructive pulmonary disease and bronchiectasis (1 source) Bronchitis; Translations: [Bronchitis, not specified as acute or chronic] 03-17-2023 Episodic Disorders of lipid metabolism (20 sources) Hyperlipidemia; Translations: [Hyperlipidemia, unspecified] Onset: 9 Chronic Esophageal disorders (20 sources) Gastroesophageal reflux disease; Translations: [Gastro-esophageal reflux disease without esophagitis] Onset: 6 12-03-2005 Chronic Essential hypertension (20 sources) Benign essential hypertension; Translations: [Essential (primary) hypertension] Onset: 9 Resolved: 3 05-31-2019 Chronic Fluid and electrolyte disorders (1 source) Hypokalemia; Translations: [Hypokalemia] Episodic Genitourinary symptoms and ill-defined conditions (20 sources) Female stress incontinence; Translations: [Stress incontinence (female) (male)] Onset: 8 09-26-2007 Chronic Glaucoma (20 sources) Suspected bilateral glaucoma; Translations: [Preglaucoma, unspecified, bilateral] Onset: 1 10-31-2020 Chronic Menopausal disorders (20 sources) Atrophic vaginitis; Translations: [Postmenopausal atrophic vaginitis] Onset: 8 Resolved: 1 09-26-2007 Chronic Mood disorders (20 sources) Reactive depression (situational); Translations: [Major depressive disorder, single episode, unspecified] Onset: 9 Resolved: 9 01-05-2019 Chronic Mood disorders (1 source) Mood disorders; Translations: [Depression, unspecified depression type] Onset: 5 Nonmalignant breast conditions (20 sources) Fibrocystic disease of breast; Translations: [Diffuse cystic mastopathy of left breast] Onset: 9 02-02-2019 Chronic Osteoarthritis (13 sources) Primary gonarthrosis, bilateral; Translations: [Bilateral primary osteoarthritis of knee] Onset: 5 11-02-2024 Chronic Other aftercare (1 source) Encounter for therapeutic drug level monitoring; Translations: [Medication monitoring encounter] Onset: 5 Episodic Other and unspecified benign neoplasm (2 sources) Tubular adenoma ; Translations: [Benign neoplasm, unspecified site] 07-30-2024 Episodic Other and unspecified benign neoplasm (4 sources) History of polyp of colon; Translations: [History of colonic polyps] 09-06-2024 Episodic Other connective tissue disease (1 source) Pain in upper limb; Translations: [Pain in left arm] 08-26-2022 Episodic Other connective tissue disease (1 source) Pain in left arm; Translations: [Pain in left arm] Episodic Other connective tissue disease (2 sources) Pain in right lower limb; Translations: [Pain in right leg] 09-04-2020 Episodic Other connective tissue disease (4 sources) Pain in bilateral legs; Translations: [Pain in right leg] 11-02-2024 Episodic Other diseases of kidney and ureters (1 source) Renal impairment; Translations: [Disorder of kidney and ureter, unspecified] 10-04-2024 Episodic Other ear and sense organ disorders (1 source) Hearing difficulty; Translations: [Unspecified hearing loss, bilateral] Chronic Other ear and sense organ disorders (1 source) Dermatitis of external auditory canal; Translations: [Acute eczematoid otitis externa, left ear] Episodic Other ear and sense organ disorders (1 source) Impacted cerumen in right ear; Translations: [Impacted cerumen, right ear] Episodic Other ear and sense organ disorders (1 source) Impacted cerumen in left ear; Translations: [Impacted cerumen, left ear] Episodic Other ear and sense organ disorders (1 source) Impacted cerumen of bilateral ears; Translations: [Impacted cerumen, bilateral] 11-02-2024 Episodic Other gastrointestinal disorders (2 sources) Increased frequency of defecation; Translations: [Change in bowel habit] 07-30-2024 Episodic Other inflammatory condition of skin (2 sources) Rosacea; Translations: [Rosacea, unspecified] 02-04-2023 Chronic Other inflammatory condition of skin (1 source) Itching of ear; Translations: [Pruritus, unspecified] Episodic Other nervous system disorders (6 sources) Carpal tunnel syndrome of right wrist; Translations: [Carpal tunnel syndrome, right upper limb] Onset: 0 11-27-2019 Chronic Other nervous system disorders (20 sources) Neuropathy; Translations: [Polyneuropathy, unspecified] Onset: 1 05-18-2021 Chronic Other nervous system disorders (2 sources) Bilateral carpal tunnel syndrome; Translations: [Carpal tunnel syndrome, bilateral upper limbs] Chronic Other nervous system disorders (5 sources) Carpal tunnel syndrome of left wrist; Translations: [Carpal tunnel syndrome, left upper limb] Chronic Other nervous system disorders (20 sources) Carpal tunnel syndrome; Translations: [Carpal tunnel syndrome, unspecified upper limb] Onset: 0 Chronic Other nervous system disorders (1 source) Chronic pain syndrome; Translations: [Chronic pain syndrome] 11-02-2024 Chronic Other nervous system disorders (1 source) Chronic pain syndrome; Translations: [Chronic pain syndrome] Onset: 5 Chronic Other nervous system disorders (1 source) Polyneuropathy, unspecified; Translations: [Neuropathy - (NOS)] Onset: 1 Chronic Other non-traumatic joint disorders (5 sources) Pain in right knee; Translations: [Pain in joint, lower leg] 02-04-2023 Episodic Other non-traumatic joint disorders (1 source) Pain of left wrist; Translations: [Pain in left wrist] 07-30-2024 Episodic Other nutritional; endocrine; and metabolic disorders (1 source) Hypercalcemia; Translations: [Hypercalcemia] 10-04-2024 Chronic Other nutritional; endocrine; and metabolic disorders (1 source) Hypercalcemia; Translations: [Hypercalcemia] Onset: 5 Chronic Other skin disorders (1 source) Skin lesion; Translations: [Disorder of the skin and subcutaneous tissue, unspecified] Episodic Other skin disorders (5 sources) Disorder of hand; Translations: [Disorder of the skin and subcutaneous tissue, unspecified] Episodic Other upper respiratory disease (1 source) Hoarse; Translations: [Dysphonia] Episodic Residual codes; unclassified (1 source) Needs assistance with community resources; Translations: [Other specified health status] 02-13-2024 Episodic Residual codes; unclassified (4 sources) Family history of cancer of colon; Translations: [Family history of malignant neoplasm of digestive organs] 09-06-2024 Episodic Spondylosis; intervertebral disc disorders; other back problems (20 sources) Lumbar spondylosis; Translations: [Spondylosis without myelopathy or radiculopathy, lumbar region] Onset: 5 11-13-2024 Chronic Superficial injury; contusion (1 source) Contusion of left lower leg; Translations: [Contusion of left lower leg, subsequent encounter] 01-28-2024 Episodic Unclassified (1 source) History of colonic polyps; Translations: [History of colonic polyps] Onset: 5 Past or Other Problems Problem Classification Problem Date Documented Da te Episodic/Chronic Adjustment disorders (20 sources) Grief finding; Translations: [Adjustment disorder with depressed mood] Onset: 1 Resolved: 8 02-09-2018 Chronic Conditions associated with dizziness or vertigo (20 sources) Benign paroxysmal positional vertigo; Translations: [Benign paroxysmal vertigo, unspecified ear] Onset: 0 07-04-2019 Episodic Diabetes mellitus without complication (20 sources) Impaired fasting glycemia; Translations: [Impaired fasting glucose] Onset: 9 Episodic Genitourinary symptoms and ill-defined conditions (20 sources) Urgent desire to urinate; Translations: [Urgency of urination] Onset: 8 Resolved: 0 08-11-2009 Episodic Melanomas of skin (20 sources) Malignant melanoma of upper arm; Translations: [Malignant melanoma of left upper limb, including shoulder] Onset: 7 Resolved: 5 Chronic Melanomas of skin (20 sources) H/O Malignant melanoma; Translations: [Personal history of malignant melanoma of skin] Onset: 5 10-03-2024 Episodic Nonmalignant breast conditions (20 sources) Pain of breast; Translations: [Mastodynia] Onset: 8 Resolved: 1 10-31-2020 Episodic Nonspecific chest pain (20 sources) Non-cardiac chest pain; Translations: [Other chest pain] Onset: 0 Resolved: 1 10-31-2020 Episodic Nutritional deficiencies (20 sources) Iron deficiency; Translations: [Iron deficiency] Onset: 1 Resolved: 3 05-18-2021 Episodic Other and unspecified benign neoplasm (1 source) Benign neoplasm, unspecified site; Translations: [Tubular adenoma] Onset: 5 Episodic Other connective tissue disease (20 sources) Muscle pain; Translations: [Myalgia and myositis, unspecified] Onset: 1 Resolved: 1 04-22-2011 Episodic Other connective tissue disease (20 sources) Pain in limb; Translations: [Pain in unspecified limb] Onset: 7 Resolved: 0 08-11-2009 Episodic Other connective tissue disease (20 sources) Impingement syndrome of left shoulder region; Translations: [Impingement syndrome of left shoulder] Onset: 6 Resolved: 9 07-31-2018 Episodic Other connective tissue disease (2 sources) Pain in left forearm; Translations: [Pain in left forearm] Onset: 4 Episodic Other connective tissue disease (16 sources) Pain of left forearm; Translations: [Pain in left forearm] Onset: 4 11-02-2024 Episodic Other connective tissue disease (2 sources) Pain in right leg; Translations: [Right leg pain] Onset: 5 Episodic Other connective tissue disease (1 source) Pain in left leg; Translations: [Bilateral leg pain] Onset: 5 Episodic Other diseases of kidney and ureters (1 source) Disorder of kidney and ureter, unspecified; Translations: [Renal insufficiency] Onset: 5 Episodic Other ear and sense organ disorders (1 source) Impacted cerumen, bilateral; Translations: [Bilateral impacted cerumen] Onset: 5 Episodic Other gastrointestinal disorders (1 source) Change in bowel habit; Translations: [Frequent bowel movements] Onset: 5 Episodic Other injuries and conditions due to external causes (1 source) Unspecified injury of unspecified lower leg, initial encounter; Translations: [Unspecified injury of unspecified lower leg, initial encounter] Onset: 4 Episodic Other lower respiratory disease (20 sources) Angiotensin-converting -enzyme inhibitor adverse reaction; Translations: [GORDO-inhibitor cough] Onset: 1 Resolved: 1 04-22-2011 Episodic Other non-epithelial cancer of skin (20 sources) Malignant neoplasm of skin; Translations: [Unspecified malignant neoplasm of skin, unspecified] Onset: 2 Resolved: 2 Episodic Other non-traumatic joint disorders (20 sources) Hip pain; Translations: [Pain in unspecified hip] Onset: 0 Resolved: 9 07-31-2018 Episodic Other non-traumatic joint disorders (1 source) Pain in left wrist; Translations: [Left wrist pain] Onset: 5 Episodic Other nutritional; endocrine; and metabolic disorders (20 sources) Obesity; Translations: [Obesity, unspecified] Onset: 5 Resolved: 4 04-13-2005 Chronic Other nutritional; endocrine; and metabolic disorders (20 sources) History of iron deficiency; Translations: [Personal history of other endocrine, nutritional and metabolic disease] Onset: 3 03-17-2023 Episodic Other screening for suspected conditions (not mental disorders or infectious disease) (20 sources) Electrocardiogram abnormal; Translations: [Abnormal electrocardiogram [ECG] [EKG]] Onset: 5 Resolved: 1 10-31-2020 Episodic Residual codes; unclassified (1 source) Family history of malignant neoplasm of digestive organs; Translations: [Family history of colon cancer] Onset: 5 Episodic Spondylosis; intervertebral disc disorders; other back problems (20 sources) Spinal stenosis of lumbar region; Translations: [Spinal stenosis, lumbar region with neurogenic claudication] Onset: 0 Resolved: 9 11-27-2019 Episodic Sprains and strains (20 sources) Strain of trapezius muscle; Translations: [Strain of other muscles, fascia and tendons at shoulder and upper arm level, unspecified arm, initial encounter] Onset: 2 Resolved: 3 04-21-2022 Episodic Unclassified (2 sources) Patient encounter status 09-06-2024 Results Test Name Value Interpretation Reference Range Facility CBC W Auto Differential pane l (Bld)on 04-08-2025 Basophils (Bld) [#/Vol] 10*3/uL Normal <0.11 [facility] Comment on above: Order Comment: Briseidai cathy Type: BLOOD SPECIMENOrdering Facility: [facility] Address: [address] [place] [address] Performed By: #### 5 7021-8 ####[facility] LABCLIA [id number] [place] [address] [place] Basophils/100 WBC (Bld) 0.3 % Normal [facility] Comment on above: Order Comment: Briseidai cathy Type: BLOOD SPECIMENOrdering Facility: [facility] Address: [address] [place] [address] Performed By: #### 5 7021-8 ####[facility] LABCLIA [id number] [place] [address] [place] Differential cell count method Nom (Bld) Auto Normal [facility] Comment on above: Order Comment: Speci men Type: BLOOD SPECIMENOrdering Facility: [facility] Address: [address] [place] [address] Performed By: #### 5 7021-8 ####[facility] LABCLIA [id number] [place] [address] [place] Eosinophils (Bld) [#/Vol] 0.05 10*3/uL Normal <0.46 [facility] Comment on above: Order Comment: Speci men Type: BLOOD SPECIMENOrdering Facility: [facility] Address: [address] [place] [address] Performed By: #### 5 7021-8 ####[facility] LABCLIA [id number] [place] [address] [place] Eosinophils/100 WBC (Bld) 0.8 % Normal [facility] Comment on above: Order Comment: Speci men Type: BLOOD SPECIMENOrdering Facility: [facility] Address: [address] [place] [address] Performed By: #### 5 7021-8 ####[facility] LABCLIA [id number] [place] [address] [place] Erythrocyte distribution width (RBC) [Ratio] 14.8 % Normal 11.5-15.0 [facility] Comment on above: Order Comment: Speci men Type: BLOOD SPECIMENOrdering Facility: [facility] Address: [address] [place] [address] Performed By: #### 5 7021-8 ####[facility] LABCLIA [id number] [address] [place] Hematocrit (Bld) [Volume fraction] 44.4 % Normal 36.0-46.0 [facility] Comment on above: Order Comment: Speci men Type: BLOOD SPECIMENOrdering Facility: [facility] Address: [address] [place] [address] Performed By: #### 5 7021-8 ####[facility] LABCLIA [id number] [place] [address] [place] Hemoglobin (Bld) [Mass/Vol] 14.2 g/dL Normal 11.5-15.5 [facility] Comment on above: Order Comment: Speci men Type: BLOOD SPECIMENOrdering Facility: [facility] Address: [address] [place] [address] Performed By: #### 5 7021-8 ####[facility] LABCLIA [id number] [place] [address] [place] Immature granulocytes (Bld) [#/Vol] 10*3/uL Normal <0.10 [facility] Comment on above: Order Comment: Speci men Type: BLOOD SPECIMENOrdering Facility: [facility] Address: [address] [place] [address] Performed By: #### 5 7021-8 ####[facility] LABCLIA [id number] [place] [address] [place] Immature granulocytes/100 WBC (Bld) 0.3 % Normal [facility] Comment on above: Order Comment: Speci men Type: BLOOD SPECIMENOrdering Facility: [facility] Address: [address] [place] [address] Performed By: #### 5 7021-8 ####[facility] LABCLIA [id number] [place] [address] [place] Lymphocytes (Bld) [#/Vol] 2.47 10*3/uL Normal 1.00-4.00 [facility] Comment on above: Order Comment: Speci men Type: BLOOD SPECIMENOrdering Facility: [facility] Address: [address] [place] [address] Performed By: #### 5 7021-8 ####[facility] LABCLIA [id number] [place] [address] [place] Lymphocytes/100 WBC (Bld) 40.6 % Normal [facility] Comment on above: Order Comment: Speci men Type: BLOOD SPECIMENOrdering Facility: [facility] Address: [address] [place] [address] Performed By: #### 5 7021-8 ####[facility] LABCLIA [id number] [place] [address] [place] MCH (RBC) [Entitic mass] 27.0 pg Normal 26.0-34.0 [facility] Comment on above: Order Comment: Speci men Type: BLOOD SPECIMENOrdering Facility: [facility] Address: [address] [place] [address] Performed By: #### 5 7021-8 ####[facility] LABCLIA [id number] [place] [address] [place] MCHC (RBC) [Mass/Vol] 32.0 g/dL Normal 30.5-36.0 [facility] Comment on above: Order Comment: Speci men Type: BLOOD SPECIMENOrdering Facility: [facility] Address: [address] [place] [address] Performed By: #### 5 7021-8 ####[facility] [id number] [place] [address] [place] MCV (RBC) [Entitic vol] 84.6 fL Normal 80.0-100.0 [facility] Comment on above: Order Comment: Speci men Type: BLOOD SPECIMENOrdering Facility: [facility] Address: [address] [place] [address] Performed By: #### 5 7021-8 ####[facility] [id number] [place] [address] [place] Monocytes (Bld) [#/Vol] 0.48 10*3/uL Normal <0.87 [facility] Comment on above: Order Comment: Speci men Type: BLOOD SPECIMENOrdering Facility: [facility] Address: [address] [place] [address] Performed By: #### 5 7021-8 ####[facility] LABIA [id number] [address] [place] Monocytes/100 WBC (Bld) 7.9 % Normal [facility] Comment on above: Order Comment: Speci men Type: BLOOD SPECIMENOrdering Facility: [facility] Address: [address] [place] [address] Performed By: #### 5 7021-8 ####[facility] LABCLIA [id number] [place] [address] [place] Neutrophils (Bld) [#/Vol] 3.05 10*3/uL Normal 1.45-7.50 [facility] Comment on above: Order Comment: Speci men Type: BLOOD SPECIMENOrdering Facility: [facility] Address: [address] [place] [address] Performed By: #### 5 7021-8 ####[facility] LABCLIA [id number] [place] [address] [place] Neutrophils/100 WBC (Bld) 50.1 % Normal [facility] Comment on above: Order Comment: Speci men Type: BLOOD SPECIMENOrdering Facility: [facility] Address: [address] [place] [address] Performed By: #### 5 7021-8 ####[facility] LABCLIA [id number] [place] [address] [place] Nucleated RBC (Bld) [#/Vol] 10*3/uL Normal <0.01 [facility] Comment on above: Order Comment: Speci men Type: BLOOD SPECIMENOrdering Facility: [facility] Address: [address] [place] [address] Performed By: #### 5 7021-8 ####[facility] LABCLIA [id number] [place] [address] [place] Nucleated RBC/100 WBC (Bld) [Ratio] 0.0 /100 WBC Normal [facility] Comment on above: Order Comment: Speci men Type: BLOOD SPECIMENOrdering Facility: [facility] Address: [address] [place] [address] Performed By: #### 5 7021-8 ####[facility] LABCLIA [id number] [place] [address] [place] Platelet mean volume (Bld) [Entitic vol] 10.5 fL Normal 9.0-12.7 [facility] Comment on above: Order Comment: Speci men Type: BLOOD SPECIMENOrdering Facility: [facility] Address: [address] [place] [address] Performed By: #### 5 7021-8 ####[facility] LABCLIA [id number] [place] [address] [place] Platelets (Bld) [#/Vol] 235 10*3/uL Normal 150-400 [facility] Comment on above: Order Comment: Speci men Type: BLOOD SPECIMENOrdering Facility: [facility] Address: [address] [place] [address] Performed By: #### 5 7021-8 ####[facility] LABCLIA [id number] [place] [address] [place] RBC (Bld) [#/Vol] 5.25 10*6/uL High 3.90-5.20 [facility] Comment on above: Order Comment: Speci men Type: BLOOD SPECIMENOrdering Facility: [facility] Address: [address] [place] [address] Performed By: #### 5 7021-8 ####[facility] LABCLIA [id number] [place] [address] [place] WBC (Bld) [#/Vol] 6.09 10*3/uL Normal 3.70-11.00 [facility] Comment on above: Order Comment: Speci men Type: BLOOD SPECIMENOrdering Facility: [facility] Address: [address] [place] [address] Performed By: #### 5 7021-8 ####[facility] LABCLIA [id number] [place] [address] [place] CNOVon 04-08-2025 CNOV Office Visit (FAMPWS ) LIBIA NAJERA ([id number]) 1940 F NFR Date Time Provider Department 04/08/25 9:40 AM BRAULIO WHITNEY During your visit today, we recorded the following information about you: Temperature Pulse Respiration Blood pressure 96.8 degrees 65/minute 16/minute 130/68 Weight 88.5 kg Braulio Whitney MD 04/08/2025 9:29 AM Signed We discussed your back pain and pain management: - You should follow up with Dr. Dixon in pain management for further treatment. He has recommended additional injections for arthritis-related pain. I support this plan, as he is experienced in managing pain. - You mentioned that previous injections caused temporary headaches and bladder issues, but these symptoms have resolved. These side effects may have been related to the steroid used in the injection. - Continue using your cane for stability, and let us know if you experience any falls or worsening symptoms. We discussed your leg and foot pain: - You tried laser therapy with your chiropractor, but it did not provide relief. At this time, I recommend continuing to work with Dr. Dixon for pain management. - Your feet remain numb, which may be related to your back issues. The planned injections may help with this. We discussed your medications: - You are currently taking Tramadol for pain, but you feel it is not effective. You have been instructed to take 1/2 pill three times daily, but you have tried different dosages without relief. Please discuss this with Dr. Dixon, as he is managing your pain medications. - You were advised not to take Gabapentin at the same time as Tramadol. If you have questions about this, please address them with Dr. Dixon. - I will check your B12 and magnesium levels today, as your stomach medication for reflux may lower these levels. We discussed your general health and lab work: - I will order the following blood tests today: CBC (blood count), CMP (to check blood sugar, kidney, and liver function), A1c (to monitor blood sugar control), and a non-fasting lipid panel (to check cholesterol). - Your blood pressure is stable, and you are not experiencing chest pain, dizziness, or significant swelling in your legs. Please continue monitoring for any new or worsening symptoms. We discussed your vaccinations: - You are up to date on your COVID, shingles, and RSV vaccines. Please verify with your pharmacy or previous provider whether you have received your flu shot this year. If not, I recommend getting it. We discussed your reflux: - You are managing your reflux well by avoiding spicy foods and other triggers. Continue monitoring your symptoms and let us know if they worsen. We discussed your mood and overall well-being: - You are not currently taking Duloxetine and report that your mood is stable. You feel supported by your daughter and find alexandra in caring for your cat. Please let us know if you experience any changes in your mood or mental health. Follow-up plan: - Follow up with Dr. Dixon for pain management and to discuss your medications and treatment plan. - Verify with your pharmacy or provider whether you have received your flu shot this year. - We will plan to see you again in 6 months for a routine checkup unless new concerns arise. Let us know if you have any additional questions or concerns. Braulio Whitney MD 04/08/2025 9:57 AM Signed The patient is an 84-year-old female with arthritis and GERD, presenting for follow-up of chronic low back pain. KERRI Reza is an 84-year-old female with a history of chronic back pain, presenting for follow-up. Chronic Back Pain: - Recent injection by Dr. Dixon intended to last 3 months; pain returned after 2 weeks. - Post-injection, experienced headaches and bladder control issues for 2 weeks; both symptoms have resolved. - Dr. Dixon plans to administer additional injections for arthritis management. - Recent chiropractic treatment included laser therapy on legs and feet, x3 weeks, without relief. - Currently using a cane for mobility. - Taking tramadol, prescribed to take 0.5 tablet TID; reports minimal relief, increased dose to 2 tablets at bedtime without improvement. - Advised to withhold gabapentin when taking tramadol; currently taking gabapentin in the morning. - Severe leg pain necessitated taking Tylenol this morning. GERD: - Occasional heartburn, triggered by certain foods like popcorn. - Avoids spicy foods to manage symptoms. Depression: - Discontinued duloxetine. - Reports stable mood, supported by pet ownership and family involvement. MEDICATIONS: Current Outpatient Medications Medication Sig gabapentin (NEURONTIN) 100 mg capsule Take 1 capsule by mouth once daily for 90 days. traMADol (ULTRAM) 50 mg tablet Take one tablet at noon then two tablets in the e (more content not included)... Normal [facility] Comprehensive metabolic 2000 panelon 04-08-2025 Albumin [Mass/Vol] 4.3 g/dL Normal 3.9-4.9 [facility] Comment on above: Order Comment: Speci men Type: BLOOD SPECIMENOrdering Facility: [facility] Address: [address] [place] [address] Performed By: #### 2 4323-8, LIPNF, , 2132-02 ####[facility] LABCLIA [id number] [place] [address] [place] ALP [Catalytic activity/Vol] 68 U/L Normal 34-123 [facility] Comment on above: Order Comment: Speci men Type: BLOOD SPECIMENOrdering Facility: [facility] Address: [address] [place] [address] Performed By: #### 2 4323-8, LIPNF, , 2132-02 ####[facility] LABCLIA [id number] [place] [address] [place] ALT [Catalytic activity/Vol] 17 U/L Normal 7-38 [facility] Comment on above: Order Comment: Speci men Type: BLOOD SPECIMENOrdering Facility: [facility] Address: [address] [place] [address] Performed By: #### 2 4323-8, LIPNF, , 2132-02 ####[facility] LABCLIA [id number] [place] [id number] [place] Anion gap [Moles/Vol] 11 mmol/L Normal 8-15 [facility] Comment on above: Order Comment: Speci men Type: BLOOD SPECIMENOrdering Facility: [facility] Address: [address] [place] [address] Performed By: #### 2 4323-8, LIPNF, , 2132-02 ####[facility] LABCLIA [id number] [place] [address] [place] AST [Catalytic activity/Vol] 22 U/L Normal 13-35 [facility] Comment on above: Order Comment: Speci men Type: BLOOD SPECIMENOrdering Facility: [facility] Address: [address] [place] [address] Performed By: #### 2 4323-8, LIPNF, , 2132-02 ####[facility] LABCLIA [id number] [place] [id number] [place] Bilirubin [Mass/Vol] 0.3 mg/dL Normal 0.2-1.3 [facility] Comment on above: Order Comment: Speci men Type: BLOOD SPECIMENOrdering Facility: [facility] Address: [address] [place] [address] Performed By: #### 2 432-8, LIPNF, , 2132-02 ####[facility] LABCLIA [id number] [place] [address] [place] Calcium [Mass/Vol] 10.1 mg/dL Normal 8.5-10.2 [facility] Comment on above: Order Comment: Speci men Type: BLOOD SPECIMENOrdering Facility: [facility] Address: [address] [place] [address] Performed By: #### 2 4323-8, LIPNF, , 2132-02 ####[facility] LABCLIA [id number] [place] [address] [place] Chloride [Moles/Vol] 101 mmol/L Normal 98-107 [facility] Comment on above: Order Comment: Speci men Type: BLOOD SPECIMENOrdering Facility: [facility] Address: [address] [place] [address] Performed By: #### 2 4323-8, LIPNF, , 2132-02 ####[facility] LABCLIA [id number] [place] [address] [place] CO2 [Moles/Vol] 28 mmol/L Normal 22-30 [facility] Comment on above: Order Comment: Speci men Type: BLOOD SPECIMENOrdering Facility: [facility] Address: [address] [place] [address] Performed By: #### 2 4323-8, LIPNF, , 2132-02 ####[facility] LABCLIA [id number] [place] [address] [place] Creatinine [Mass/Vol] 0.86 mg/dL Normal 0.58-0.96 [facility] Comment on above: Order Comment: Speci men Type: BLOOD SPECIMENOrdering Facility: [facility] Address: [address] [place] [address] Performed By: #### 2 4323-8, LIPNF, , 2132-02 ####[facility] LABIA [id number] [place] [address] [place] eGFRcr SerPlBld CKD-EPI 2020 67 mL/min/1.73m??? Normal >=60 [facility] Comment on above: Order Comment: Speci men Type: BLOOD SPECIMENOrdering Facility: [facility] Address: [address] [place] [address] Result Comment: Breana mated Glomerular Filtration Rate (eGFR) is calculated using the 2020 CKD-EPI creatinine equation. This equation utilizes serum creatinine, sex, and age as parameters. The creatinine assay has traceable calibration to isotope dilution-mass spectrometry. Refer to KDIGO guidelines for clinical interpretation. In patients with unstable renal function, e.g. those with acute kidney injury, the eGFR may not accurately reflect actual GFR. Performed By: #### 2 4323-8, LIPNF, , 2132-02 ####[facility] LABCLIA [id number] [place] [address] [place] Glucose [Mass/Vol] 102 mg/dL High 74-99 [facility] Comment on above: Order Comment: Speci men Type: BLOOD SPECIMENOrdering Facility: [facility] Address: [address] [place] [address] Result Comment: The [place] [employer] (ADA) provides guidance for cutoff values for fasting glucose and random glucose. The ADA defines fasting as no caloric intake for at least 8 hours. Fasting plasma glucose results between 100 to 125 mg/dL indicate increased risk for diabetes (prediabetes). Fasting plasma glucose results greater than or equal to 126 mg/dL meet the criteria for diagnosis of diabetes. In the absence of unequivocal hyperglycemia, results should be confirmed by repeat testing. In a patient with classic symptoms of hyperglycemia or hyperglycemic crisis, random plasma glucose results greater than or equal to 200 mg/dL meet the criteria for diagnosis of diabetes. Reference: Standards of Medical Care in Diabetes 2016, [place] [employer]. Diabetes Care. 2016.39(Suppl 1). Performed By: #### 2 4323-8, LIPNF, , 2132-02 ####[facility] LABCLIA [id number] [place] [address] [place] Potassium [Moles/Vol] 4.6 mmol/L Normal 3.7-5.1 [facility] [facility] Comment on above: Order Comment: Speci men Type: BLOOD SPECIMENOrdering Facility: [facility] Address: [address] [place] [address] Performed By: #### 2 4323-8, LIPNF, , 2132-02 ####[facility] LABCLIA [id number] [place] [address] [place] Protein [Mass/Vol] 6.8 g/dL Normal 6.3-8.0 [facility] Comment on above: Order Comment: Speci men Type: BLOOD SPECIMENOrdering Facility: [facility] Address: [address] [place] [address] Performed By: #### 2 4323-8, LIPNF, , 2132-02 ####[facility] LABCLIA [id number] [place] [id number] [place] Sodium [Moles/Vol] 140 mmol/L Normal 136-144 [facility] Comment on above: Order Comment: Speci men Type: BLOOD SPECIMENOrdering Facility: [facility] Address: [address] [place] [address] Performed By: #### 2 4323-8, LIPNF, , 2132-02 ####[facility] LABCLIA [id number] [place] [address] [place] Urea nitrogen [Mass/Vol] 15 mg/dL Normal 7-21 [facility] Comment on above: Order Comment: Speci men Type: BLOOD SPECIMENOrdering Facility: [facility] Address: [address] [place] [address] Performed By: #### 2 4323-8, LIPNF, , 2132-02 ####[facility] LABCLIA [id number] [place] [address] [place] HbA1c (Bld)on 04-08-2025 Average glucose Estimated from glycated hemoglobin (Bld) [Mass/Vol] 120 mg/dL Normal [facility] Comment on above: Order Comment: Speci men Type: BLOOD SPECIMENOrdering Facility: [facility] Address: [address] [place] [address] Result Comment: eAG: (Estimated average glucose) is a calculated value from HgbA1c and is inside outside sales representative of the average blood glucose level in the last 2-3 month period. Performed By: #### 5 5454-3 ####[facility] LABCLIA [id number] [place] [address] [place] HbA1c (Bld) [Mass fraction] 5.8 % High 4.3-5.6 [facility] Comment on above: Order Comment: Speci [facility] Type: BLOOD SPECIMENOrdering Facility: [facility] Address: [address] [place] [address] Result Comment: Amer ican Diabetes Association guidelines indicate that patients with HgbA1c in the range 5.7-6.4% are at increased risk for development of diabetes, and intervention by lifestyle modification may be beneficial. HgbA1c greater or equal to 6.5% is considered diagnostic of diabetes. Performed By: #### 5 5454-3 ####[facility] LABCLIA [id number] [address] [place] LIPID PANEL, NONFASTINGon Cholesterol [Mass/Vol] 207 mg/dL High <200 [facility] Comment on above: Order Comment: Speci men Type: BLOOD SPECIMENOrdering Facility: [facility] Address: [address] [place] [address] Result Comment: <200 mg/dL, Desirable 200-239 mg/dL, Borderline high >239 mg/dL, High Performed By: #### 2 4323-8, LIPNF, , 2132-02 ####[facility] LABCLIA [id number] [address] OF [facility] HDL CHOLESTEROL, NF 59 mg/dL Normal >39 [facility] Comment on above: Order Comment: Speci men Type: BLOOD SPECIMENOrdering Facility: [facility] Address: [address] [place] [address] Result Comment: 40-5 9 mg/dL, Acceptable >59 mg/dL, High: Negative risk factor for coronary heart disease <40 mg/dL, Low: Positive risk factor for coronary heart disease Performed By: #### 2 4323-8, LIPNF, , 2132-02 ####[facility] LABCLIA [id number] [address] LDL CHOLESTEROL CALCULATED, NF 100 mg/dL High <100 [facility] Comment on above: Order Comment: Speci men Type: BLOOD SPECIMENOrdering Facility: [facility] Address: [address] [place] [address] Result Comment: <100 mg/dL, Optimal 100-129 mg/dL, Near optimal/above optimal 130-159 mg/dL, Borderline high 160-189 mg/dL, High >189 mg/dL, Very high Secondary prevention optimal LDL Cholesterol levels are recommended to be <70 mg/dL LDL cholesterol is calculated using the Hoyos-NIH equation. Performed By: #### 2 4323-8, LIPNF, , 2132-02 ####[facility] LABCLIA [id number] [address] OF [facility] LDL/HDL RATIO, NF 1.69 mg/dL Normal <2.54 [facility] Comment on above: Order Comment: Speci men Type: BLOOD SPECIMENOrdering Facility: [facility] Address: [address] [place] [address] Result Comment: Refe vahece: 1. National Cholesterol Education Program ATP III Guideline At-A-Glance Quick Desk Reference: National Heart, Lung, and Blood Marshall. National Institutes of Health. 2001: NIH Publication No. 01-3305. 2. An International Atherosclerosis Society position paper: global recommendations for the management of dyslipidemia: executive summary, Atherosclerosis. 2014: 232(2):410-413. Performed By: #### 2 4323-8, LIPNF, , 2132-02 ####[facility] LABCLIA [id number] [address] STATES OF [facility] NON HDL CHOL, NF 148 mg/dL High <130 [facility] Comment on above: Order Comment: Speci men Type: BLOOD SPECIMENOrdering Facility: [facility] Address: [address] [place] [address] Result Comment: <130 mg/dL, Optimal 130-159 mg/dL, Near optimal/above optimal 160-189 mg/dL, Borderline high 190-219 mg/dL, High >219 mg/dL, Very high Secondary prevention optimal non HDL Cholesterol levels are recommended to be <100 mg/dL Performed By: #### 2 4323-8, LIPNF, , 2132-02 ####[facility] LABCLIA [id number] [address] OF [place] T CHOL/HDL RATIO NF 3.51 mg/dL Normal <5.10 [facility] Comment on above: Order Comment: Speci men Type: BLOOD SPECIMENOrdering Facility: [facility] Address: [address] [place] [address] Performed By: #### 2 4323-8, LIPNF, , 2132-02 ####[facility] LABCLIA [id number] [place] [address] [place] TRIGLYCERIDES, NF 288 mg/dL High <150 [facility] Comment on above: Order Comment: Speci men Type: BLOOD SPECIMENOrdering Facility: [facility] Address: [address] [place] [address] Result Comment: <150 mg/dL, Normal 150-199 mg/dL, Borderline high 200-499 mg/dL, High >499 mg/dL, Very high Performed By: #### 2 4323-8, LIPNF, , 2132-02 ####[facility] LABCLIA [id number] [place] [address] [place] VLDL CHOLESTEROL, NF 47 mg/dL High <30 [facility] Comment on above: Order Comment: Speci men Type: BLOOD SPECIMENOrdering Facility: [facility] Address: [address] [place] [address] Performed By: #### 2 4323-8, LIPNF, , 2132-02 ####[facility] LABCLIA [id number] [place] [address] [place] Magnesium SerPl-mCncon 04-08 Magnesium [Mass/Vol] 2.0 mg/dL Normal 1.7-2.3 [facility] Comment on above: Order Comment: Speci men Type: BLOOD SPECIMENOrdering Facility: [facility] Address: [address] [place] [address] Performed By: #### 2 4323-8, LIPNF, , 2132-02 ####[facility] LABCLIA [id number] [place] [address] [place] Vit B12 SerPl-mCncon 025 Cobalamin (Vitamin B12) [Mass/Vol] 404 pg/mL Normal 232-1245 [facility] Comment on above: Order Comment: Speci men Type: BLOOD SPECIMENOrdering Facility: [facility] Address: [address] [place] [address] Performed By: #### 2 4323-8, LIPNF, 71000-4, 2132-9 ####[facility] LABCLIA [id number] [address] [place] Del 01-15-2025 [facility] ([id number]) 1940 F NFR Date Time Provider Department 01/15/25 BRAULIO [facility] During your visit today, we recorded the following information about you: Earline Blancas RN 01/15/2025 8:44 AM Signed Patient requesting Pain Mgmt Consult order and information be faxed to Dr. Vickers's office in [place]. Faxed as requested. Pt to contact their office to schedule. Earline Blancas RN Allergies As of Date: 01/15/2025 (No Known Allergies) Date Reviewed: 11/30/2024 Reviewed by: Taya Paige MA - Fully Assessed Reason for Visit: Fax Request [Other] Prescriptions as of 01/15/2025 - DULoxetine DR (CYMBALTA) 30 mg capsule Take 1 capsule by mouth once daily. - omeprazole (PRILOSEC) 40 mg capsule Take 1 capsule by mouth once daily. - pravastatin (PRAVACHOL) 40 mg tablet Take 1 tablet by mouth once daily. - lisinopril-hydroCHLOROthiazi de (ZESTORETIC) 10-12.5 mg per tablet Take 1 tablet by mouth every morning. - latanoprost (XALATAN) 0.005 % ophthalmic solution Use 1 Drop in both eyes daily at bedtime. TO AFFECTED EYE(S) - Blood Pressure Cuff - Home Use BLOOD PRESSURE CUFF FOR HOME USE. DX: LABILE BLOOD PRESSURE - Calcium Carbonate-Vitamin D2 600 mg calcium- 200 unit tab Take 1 tablet by mouth once daily. Problem List As Of Date 01/15/2025 Noted Resolved Myalgia and myositis, unspecified [QCO2089] 03/17/2001 04/22/2011 Essential hypertension, benign [I10] Backache, unspecified [M54.9] 07/31/2018 Nonspecific abnormal electrocardiogram (ECG) (E* 10/31/2020 Hyperlipidemia with target LDL less than 130 [E* OBESITY [E66.9] 04/13/2005 04/04/2024 ESOPHAGEAL REFLUX [K21.9] 12/03/2005 PAIN FOOT [M79.609] 11/25/2006 08/11/2009 Routine general medical examination at a [facility]*02/07/2007 04/22/2011 Symptomatic menopausal or female climacteric st*09/26/2007 04/22/2011 ATROPHIC VAGINITIS [N95.2] 09/26/2007 Urgency of Urination [R39.15] 09/26/2007 08/11/2009 FEMALE STRESS INCONTINENCE [N39.3] 09/26/2007 Mastalgia [N64.4] 03/15/2008 10/31/2020 Unspecified essential hypertension [I10] 07/01/2008 04/22/2011 Hip pain [M25.559] 08/11/2009 07/31/2018 Carpal tunnel syndrome [G56.00] 08/11/2009 GORDO-inhibitor cough [R05.8, T46.4X5A] 07/27/2010 04/22/2011 Grief reaction [F43.20] 01/19/2011 02/09/2018 Essential hypertension, benign [I10] 04/22/2011 01/05/2019 Impingement syndrome of left shoulder [M75.42] 08/11/2015 07/31/2018 Melanoma of left upper arm (HCC) [C43.62] 06/30/2016 10/03/2024 Reactive depression [F32.9] 07/31/2018 01/05/2019 Stage 3a chronic kidney disease (HCC) [N18.31] 07/31/2018 Fibrocystic disease of left breast [N60.12] 02/02/2019 Impaired fasting glucose [R73.01] 05/31/2019 BPPV (benign paroxysmal positional vertigo), un*07/04/2019 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/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 Non-cardiac chest pain [R07.89] 04/29/2020 10/31/2020 Glaucoma suspect of both eyes [H40.003] 10/31/2020 Neuropathy - (NOS) [G62.9] 05/18/2021 Iron deficiency [E61.1] 05/18/2021 03/17/2023 Skin cancer [C44.90] 10/19/2021 10/19/2021 Sciatica [M54.30] 04/21/2022 Strain of trapezius muscle [S46.819A] 04/21/2022 03/17/2023 Malignant hypertension [I10] 09/10/2022 03/17/2023 History of iron deficiency [Z86.39] 03/17/2023 Hyperglycemia [R73.9] 03/17/2023 History of melanoma [Z85.820] 10/03/2024 Pain in left forearm [M79.632] 05/21/2024 Strain of trapezius muscle [S46.819A] 04/17/2024 Lumbar spondylosis [M47.816] 11/13/2024 Primary osteoarthritis of both knees [M17.0] 01/02/2025 Encounter Status:Closed by EARLINE BLANCAS on 01/15/25 [facility] CNTHERAPYon 01-08-2025 CNTHERAPY OT/PT/Speech Visit ( PTWS) LIBIA NAJERA ([id number]) 1940 F NFR Date Time Provider Department 01/08/25 10:45 AM MICHAEL RUSSO PTWS Date Time Provider Department Center 01/08/2025 10:45 AM [id number], BRENT PTWS Arnold Orr Reason for Visit: Physical Therapy [503] PT Discharge [752] Primary Visit Diagnosis:Lumbar spondylosis [M47.816] Allergies As of Date: 01/08/2025 (No Known Allergies) Date Reviewed: 11/30/2024 Reviewed by: Taya Paige MA - Fully Assessed Prescriptions as of 01/08/2025 - DULoxetine DR (CYMBALTA) 30 mg capsule Take 1 capsule by mouth once daily. - omeprazole (PRILOSEC) 40 mg capsule Take 1 capsule by mouth once daily. - pravastatin (PRAVACHOL) 40 mg tablet Take 1 tablet by mouth once daily. - lisinopril-hydroCHLOROthiazi de (ZESTORETIC) 10-12.5 mg per tablet Take 1 tablet by mouth every morning. - latanoprost (XALATAN) 0.005 % ophthalmic solution Use 1 Drop in both eyes daily at bedtime. TO AFFECTED EYE(S) - Blood Pressure Cuff - Home Use BLOOD PRESSURE CUFF FOR HOME USE. DX: LABILE BLOOD PRESSURE - Calcium Carbonate-Vitamin D2 600 mg calcium- 200 unit tab Take 1 tablet by mouth once daily. Normal [facility] CNOVon 01-02-2025 CN Office Visit (JOHANNWS ) LIBIA NAJERA ([id number]) 1940 F NFR Date Time Provider Department 01/02/25 8:40 AM NINA MARLEY During your visit today, we recorded the following information about you: Pulse Respiration Blood pressure Weight 62/minute 16/minute 124/70 87.5 kg Nina Marley APRN.MEASUREMENT ADVISOR 01/02/2025 9:29 AM Signed Libia Giley is a 84 year old female here for a Medicare wellness visit. Medicare Health Risk Assessment General Health Fair Exercise: Minutes/Day 0 min Exercise: Days/Week On average, how many days per week do you engage in moderate to strenuous exercise (like a brisk walk)?: 0 days (but is very active.) Alcohol: Daily Use Never Alcohol: Drinks/Day Patient does not drink Alcohol: 6 or more drinks Never Feel off balance No Concerns: Teeth/Dentures No Concerns: Sexual function No Troubled by feelings Lonely Frequency: Eating healthy diet Nearly every day ADLs requiring help None of the above Safety precautions in home/vehicle Yes Smoke, vape, chews tobacco No Difficulty hearing No Difficulty seeing No Current Providers Specialists: Outside specialists seen: dermatology, eye doctor. Medical/Family history review Reviewed and updated problem list, medical/surgical/family/soci al history, medications, and allergies. Opioid use review Opioid Medications (last 90 days) No data to display Anxiety/Depression screening PHQ-9 Score: 5 (Mild Depression) Recommendation: no further intervention at this time Cognitive screening Mini Cog Score: 5 Cognitive screening reviewed and No further action needed (score 3-5). Functional Observation Was the patient's Timed Up AND Go test unsteady or >= 12 seconds? No Advance Care Planning Surrogate decision maker and/or advance care plan documented Daughter Mady Najera Measurements BP 124/70 Pulse 62 Resp 16 Wt 87.5 kg (193 lb) SpO2 96% BMI 31.15 kg/m? Vision Screening: Follows with optometry/ophthalmology Assessment/Plan Medicare annual wellness visit, subsequent (Z00.00) - Counseled on healthy diet and regular exercise - Fall avoidance information provided - Personalized prevention plan provided Additional Concerns The following concerns were also discussed with the patient: Recording using [employer] software for draft documentation of the visit was discussed with the patient/authorized inside outside sales representative; all questions welcomed and answered. Patient/authorized inside outside sales representative agreed to proceed Subjective Depression: - Reports feeling lonely and depressed most of the time. - Denies feeling bad about herself, poor appetite, overeating, or trouble concentrating. - Denies moving or speaking slowly, restlessness, or fidgeting. - Denies thoughts of self-harm or being better off . - Enjoys doing puzzles and word games to stay busy. - Has a cat that keeps her busy; wakes her up at 0500 every morning. 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 Back Pain: - Reports back pain with radiation to bilateral legs from knees to hips. - Pain management with Dr. Dixon; next appointment in February. - Taking gabapentin BID; reduced from TID due to fatigue. - Taking duloxetine 20 mg daily; last dose taken yesterday. - Taking Tylenol 2 tablets TID. - Denies saddle anesthesia or bowel/bladder incontinence. - Reports numbness in feet since onset of back pain. - Denies receiving injections for back pain. - MRI of the back performed last year. Constitutional: (+) fatigue Eyes: (-) visual difficulty Ears/Nose/Mouth/Throat: (-) hearing difficulty, (-) dental problems Gastrointestinal: (-) fecal incontinence Genitourinary: (-) urinary incontinence Musculoskeletal: (+) back pain, (+) bilateral leg pain, (+) generalized body aches, (+) limited ambulation Neurological: (+) bilateral foot numbness, (+) imbalance Psychiatric: (+) loneliness, (+) depressed mood, (+) suicidal ideation, (-) low self-esteem, (-) concentration difficulty, (-) psychomotor changes Objective BP 124/70 Pulse 62 Resp 16 Wt 87.5 kg (193 lb) SpO2 96% BMI 31.15 kg/m? GENERAL: NAD, alert and oriented. SKIN: Unremarkable, no rash or skin lesions. HEAD: Normocephalic. EYES: EOMI, conjunctiva clear. LUNGS: Clear to auscultation bilaterally, no wheezes/rhonchi/rales. HEART: Regular rate and rhythm, no murmurs. No ectopy. EXTREMITIES: Normal, no deformities, no skin discoloration, no edema. NEURO: Awake, alert and oriented x3, cranial nerves II-XII grossly intact, normal gait, no involuntary motions. Back: midline lower back pain. Assessment AND Plan 1. Lumbar spondylosis (M47.816) - Chronic back pain with radiation to bilateral lower extremities from knees to hips; numbness in feet noted. - Previous MRI of the lumbar spine performed last year. - Cu (more content not included)... Normal [facility] CNTHERAPYon 01-01-2025 CNTHERAPY OT/PT/Speech Visit ( PTWS) LIBIA NAJERA ([id number]) 1940 F NFR Date Time Provider Department 01/01/25 2:00 PM ANUSHA MARTINS PTWS Date Time Provider Department Center 01/01/2025 2:00 PM [id number], MARIAH PTWS Arnold Orr Reason for Visit: Physical Therapy [503] Primary Visit Diagnosis:Lumbar spondylosis [M47.816] Other Visit Diagnosis:Primary osteoarthritis of both knees [M17.0] Allergies As of Date: 01/01/2025 (No Known Allergies) Date Reviewed: 11/30/2024 Reviewed by: Taya Paige MA - Fully Assessed Prescriptions as of 01/02/2025 - DULoxetine (CYMBALTA) 20 mg capsule Take 1 capsule by mouth once daily. - omeprazole (PRILOSEC) 40 mg capsule Take 1 capsule by mouth once daily. - pravastatin (PRAVACHOL) 40 mg tablet Take 1 tablet by mouth once daily. - lisinopril-hydroCHLOROthiazi de (ZESTORETIC) 10-12.5 mg per tablet Take 1 tablet by mouth every morning. - latanoprost (XALATAN) 0.005 % ophthalmic solution Use 1 Drop in both eyes daily at bedtime. TO AFFECTED EYE(S) - Blood Pressure Cuff - Home Use BLOOD PRESSURE CUFF FOR HOME USE. DX: LABILE BLOOD PRESSURE - Calcium Carbonate-Vitamin D2 600 mg calcium- 200 unit tab Take 1 tablet by mouth once daily. Normal [facility] CNTHERAPYon 12-25-2024 CNTHERAPY OT/PT/Speech Visit ( PTWS) LIBIA NAJERA ([id number]) 1940 F NFR Date Time Provider Department 12/25/24 2:00 PM ANUSHA MARTINS PTWS Date Time Provider Department Center 12/25/2024 2:00 PM [id number], MARIAH PTWS [place] Hema Reason for Visit: Physical Therapy [503] Primary Visit Diagnosis:Lumbar spondylosis [M47.816] Allergies As of Date: 12/25/2024 (No Known Allergies) Date Reviewed: 11/30/2024 Reviewed by: Taya Paige MA - Fully Assessed Prescriptions as of 12/26/2024 - DULoxetine (CYMBALTA) 20 mg capsule Take 1 capsule by mouth once daily. - lidocaine (LIDODERM) 5 % Apply 1 patch as directed once daily. REMOVE AFTER 12 HOURS. - omeprazole (PRILOSEC) 40 mg capsule Take 1 capsule by mouth once daily. - pravastatin (PRAVACHOL) 40 mg tablet Take 1 tablet by mouth once daily. - lisinopril-hydroCHLOROthiazi de (ZESTORETIC) 10-12.5 mg per tablet Take 1 tablet by mouth every morning. - latanoprost (XALATAN) 0.005 % ophthalmic solution Use 1 Drop in both eyes daily at bedtime. TO AFFECTED EYE(S) - Blood Pressure Cuff - Home Use BLOOD PRESSURE CUFF FOR HOME USE. DX: LABILE BLOOD PRESSURE - Calcium Carbonate-Vitamin D2 600 mg calcium- 200 unit tab Take 1 tablet by mouth once daily. Professor Of Counseling: Therapy (PT/OT/Speech/Resp) ID: [id number] 12/25/2024 2:30 PM Author: ANUSHA MARTINS Signed by ANUSHA MARTINS DEPOT MANAGER on 12/25/2024 at 2:30 PM Document text: Program_ID:[id number] Access Code: [email or web address] URL: [email or web address] Date: 12-25-2024 Prepared By: Mihcael Russo Program Notes Exercises - Supine Lower Trunk Rotation - 2-3 x daily - 7 x weekly - 2 sets - 10 reps - Hooklying Single Knee to Chest Stretch - 2-3 x daily - 7 x weekly - sets - 3 reps - Supine Double Knee to Chest Modified - 2-3 x daily - 7 x weekly - sets - 3 reps - Supine Transversus Abdominis Bracing - Hands on Ground - 3 x daily - 7 x weekly - 2 sets - 10 reps - Curl Up with Arms Crossed - 2 x daily - 7 x weekly - 2 sets - 10 reps - Supine March with Posterior Pelvic Tilt - 2 x daily - 7 x weekly - 2 sets - 10 reps Normal [facility] THERAPY NTon 12-25-2024 THERAPY NT HNO ID: [id number] Author: ANUSHA MARTINS PTA Service: ? Author Type: Customer Program Specialist Type: Therapy (PT/OT/Speech/Resp) Filed: 12/25/2024 14:30 Note Text: Program_ID:[id number] Access Code: [email or web address] URL: [email or web address] Date: 12-25-2024 Prepared By: Michael Russo Program Notes Exercises - Supine Lower Trunk Rotation - 2-3 x daily - 7 x weekly - 2 sets - 10 reps - Hooklying Single Knee to Chest Stretch - 2-3 x daily - 7 x weekly - sets - 3 reps - Supine Double Knee to Chest Modified - 2-3 x daily - 7 x weekly - sets - 3 reps - Supine Transversus Abdominis Bracing - Hands on Ground - 3 x daily - 7 x weekly - 2 sets - 10 reps - Curl Up with Arms Crossed - 2 x daily - 7 x weekly - 2 sets - 10 reps - Supine August with Posterior Pelvic Tilt - 2 x daily - 7 x weekly - 2 sets - 10 reps Normal [facility] CNTHERAPYon 12-18-2024 CNTHERAPY OT/PT/Speech Visit ( PTWS) LIBIA NAJERA ([id number]) 1940 F NFR Date Time Provider Department 12/18/24 2:00 PM ANUSHA MARTINS PTWS Date Time Provider Department [place] 12/18/2024 2:00 PM [id number], MARIAH PTWS Arnold Hema Reason for Visit: Physical Therapy [503] Primary Visit Diagnosis:Lumbar spondylosis [M47.816] Allergies As of Date: 12/18/2024 (No Known Allergies) Date Reviewed: 11/30/2024 Reviewed by: Taya Paige MA - Fully Assessed Prescriptions as of 12/18/2024 - DULoxetine (CYMBALTA) 20 mg capsule Take 1 capsule by mouth once daily. - lidocaine (LIDODERM) 5 % Apply 1 patch as directed once daily. REMOVE AFTER 12 HOURS. - omeprazole (PRILOSEC) 40 mg capsule Take 1 capsule by mouth once daily. - pravastatin (PRAVACHOL) 40 mg tablet Take 1 tablet by mouth once daily. - lisinopril-hydroCHLOROthiazi de (ZESTORETIC) 10-12.5 mg per tablet Take 1 tablet by mouth every morning. - latanoprost (XALATAN) 0.005 % ophthalmic solution Use 1 Drop in both eyes daily at bedtime. TO AFFECTED EYE(S) - Blood Pressure Cuff - Home Use BLOOD PRESSURE CUFF FOR HOME USE. DX: LABILE BLOOD PRESSURE - Calcium Carbonate-Vitamin D2 600 mg calcium- 200 unit tab Take 1 tablet by mouth once daily. Normal [facility] [id number] 12-11-2024 [id number] HNO ID: [id number] Author: MICHAEL RUSSO PT Service: ? Author Type: Physical Therapist Type: [id number] Filed: 12/11/2024 14:45 Note Text: [facility] Physical Therapy Plan of Care Certification Patient Name: Libia Najera : 1940 [facility] #: [id number] Date: 12/11/2024 To: Nina Marley APRN.C* From Therapist: Michael Russo PT RE: Patient Certification/ Recertification Your review, approval and electronic signature are required in order to comply with Payor: [employer]ICARE / Plan: [employer] MEDICARE PPO / Product Type: PPO / regulations. The identified Physical Therapy PLAN OF CARE for the patient is as follows: M47.816 Lumbar spondylosis (primary encounter diagnosis) PLAN OF CARE UPDATE: Assessment: Libia Najera demonstrates minimal improvement in exercise tolerance and pain. The patient has progressed toward goals. Patient continues to present with impairments in ADL's, gait, independence in exercise, overall function, patient reported outcome measures, range of motion, strength, and symptom management that interfere with walking, stair negotiation, rising from a chair . Current prognosis is Good due to: current objective clinical presentation, good overall health status, good support system/ coping skills. The patient will benefit from continued skilled therapy services to meet the updated goals for this plan of care as noted below. Updated: 12/11/24 Goals for Episode of Care: established 11/13/24 Patient reported outcome of physical function will increase T-score by a minimum 5 points. - Partially MET, will continue Independent in home exercises. - MET, will continue and progress to tolerance Patient will decrease pain to 0/10 with functional activities to allow patient to improve ambulation, transfers, and standing tolerance for ADLs. - Partially MET, will continue Restore pain-free lumbar ROM to WFL to allow for improved transfers and walking. - Not MET, will continue Stand / Walk without limitations, without pain/symptoms. - Not MET, will continue Patient will increase strength of core and postural muscles to WFL to allow for improved position tolerance for standing and walking. - Not MET, will continue Patient Goals: decrease pain and stay active - Not MET, will continue Time Frame for Goals and Treatment : 01/08/25 Patient Goals: decrease pain and stay active Planned Interventions, Frequency, and Duration: 1x/week, 4 weeks Total Number of Visits Planned: 4 Patient to be seen for Therapeutic exercise (45083), Manual therapy (15457), Therapeutic activities (96821), Self-fci management (46352), Patient/Family/Caregiver Education, Body Mechanics Training PLAN FOR NEXT VISIT: Review, correct and progress HEP to tolerance. Continue with postural stretching and strengthening with flexion directional preference. Continue manual lumbar belt traction prn. Avoid WBing trunk flexion completely. For further details regarding this patient refer to the Physical Therapy electronically documented visit dated 12/11/2024. Provider Attestation I have reviewed the treatment plan for Libia Najera, CCF# [id number] for the period of 12/11/24 -- 01/08/25, established on 12/11/2024. Signature certifies the need for therapy services. Normal [facility] CNTHERAPYon 12-11-2024 CNTHERAPY OT/PT/Speech Visit ( PTWS) LIBIA NAJERA ([id number]) 1940 F NFR Date Time Provider Department 12/11/24 2:00 PM MICHAEL RUSSO PTWS Date Time Provider Department Center 12/11/2024 2:00 PM [id number], BRENT PTWS [place] [facility] Reason for Visit: Physical Therapy [503] PT Progress Note [1596] Primary Visit Diagnosis:Lumbar spondylosis [M47.816] Allergies As of Date: 12/11/2024 (No Known Allergies) Date Reviewed: 11/30/2024 Reviewed by: Taya Paige MA - Fully Assessed Prescriptions as of 12/11/2024 - DULoxetine (CYMBALTA) 20 mg capsule Take 1 capsule by mouth once daily. - lidocaine (LIDODERM) 5 % Apply 1 patch as directed once daily. REMOVE AFTER 12 HOURS. - omeprazole (PRILOSEC) 40 mg capsule Take 1 capsule by mouth once daily. - pravastatin (PRAVACHOL) 40 mg tablet Take 1 tablet by mouth once daily. - lisinopril-hydroCHLOROthiazi de (ZESTORETIC) 10-12.5 mg per tablet Take 1 tablet by mouth every morning. - latanoprost (XALATAN) 0.005 % ophthalmic solution Use 1 Drop in both eyes daily at bedtime. TO AFFECTED EYE(S) - Blood Pressure Cuff - Home Use BLOOD PRESSURE CUFF FOR HOME USE. DX: LABILE BLOOD PRESSURE - Calcium Carbonate-Vitamin D2 600 mg calcium- 200 unit tab Take 1 tablet by mouth once daily. Professor Of Counseling: Therapy (PT/OT/Speech/Resp) ID: [id number] 12/11/2024 2:18 PM Author: MICHAEL RUSSO Signed by MICHAEL RUSSO PT on 12/11/2024 at 2:19 PM Document text: Program_ID:[id number] Access Code: [email or web address] URL: [email or web address] Date: 12-11-2024 Prepared By: Michael Russo Program Notes Exercises - Supine Lower Trunk Rotation - 2-3 x daily - 7 x weekly - 2 sets - 10 reps - Hooklying Single Knee to Chest Stretch - 2-3 x daily - 7 x weekly - sets - 3 reps - Supine Double Knee to Chest Modified - 2-3 x daily - 7 x weekly - sets - 3 reps - Supine Transversus Abdominis Bracing - Hands on Ground - 3 x daily - 7 x weekly - 2 sets - 10 reps - Curl Up with Arms Crossed - 2 x daily - 7 x weekly - 2 sets - 10 reps Normal [facility] THERAPY NTon 12-11-2024 THERAPY NT HNO ID: [id number] Author: MICHAEL RUSSO PT Service: ? Author Type: Physical Therapist Type: Therapy (PT/OT/Speech/Resp) Filed: 12/11/2024 14:19 Note Text: Program_ID:[id number] Access Code: [email or web address] URL: [email or web address] Date: 12-11-2024 Prepared By: Michael Russo Program Notes Exercises - Supine Lower Trunk Rotation - 2-3 x daily - 7 x weekly - 2 sets - 10 reps - Hooklying Single Knee to Chest Stretch - 2-3 x daily - 7 x weekly - sets - 3 reps - Supine Double Knee to Chest Modified - 2-3 x daily - 7 x weekly - sets - 3 reps - Supine Transversus Abdominis Bracing - Hands on Ground - 3 x daily - 7 x weekly - 2 sets - 10 reps - Curl Up with Arms Crossed - 2 x daily - 7 x weekly - 2 sets - 10 reps [facility]FAMP[facility] ) LIBIA NAJERA ([id number]) 1940 F NFR Date Time Provider Department 11/30/24 4:00 PM [facility] your visit today, we recorded the following information about you: Pulse Blood pressure Weight 64/minute 128/64 90.3 kg Marii Red, ENROLLMENT ELIGIBILITY REPRESENTATIVE.[facility] 11/30/2024 4:50 PM Signed This is a 84 year old female who presents today with: Patient presents with: Leg Pain: Right upper leg pain HISTORY OF PRESENT ILLNESS: Libia Najera is a 84 year old female. Patient presents with: Leg Pain: Right upper leg pain Libia Najera is an 84-year-old female with a history of chronic back pain, presenting for worsening back and leg pain. Back and Leg Pain: - Chronic back pain with worsening symptoms over the past few months. - Pain radiates to the leg, particularly around the knee. - Denies known trauma or injury. - Pain severity rated as 4/10 in the back; leg pain is minimal when sitting but exacerbated by walking and lying down. - Reports nocturia and numbness in feet at night. - Currently taking gabapentin 100 mg TID, with 200 mg at bedtime; reports fatigue attributed to the medication. - Recent steroid use a couple of weeks ago. - Undergoing physical therapy with Dr. Singh, with sessions scheduled weekly. PAST MEDICAL HISTORY: PAST MEDICAL HISTORY Diagnosis Date Arthritis Arthropathy, unspecified, site unspecified Backache, unspecified CKD (chronic kidney disease) stage 3, GFR 30-59 ml/min ([facility]) 07/31/2018 Diverticulosis of colon (without mention of hemorrhage) Essential hypertension, benign Female stress incontinence mild Melanoma (HCC) 09/03/2020 Right anterior proximal upper arm Nonspecific abnormal electrocardiogram (ECG) (EKG) PAC Other and unspecified hyperlipidemia Reactive depression 07/31/2018 Symptomatic menopausal or female climacteric states PAST SURGICAL HISTORY Procedure Laterality Date ABDOMINAL SURGERY HX APPENDECTOMY APPENDECTOMY HX CHOLECSTOT/CHOLECSTOST W/EXPL DRG/RMVL ST1 SPX COLONOSCOPY FLX DX W/COLLJ SPEC WHEN PFRMD 2001 Colonoscopy COLONOSCOPY FLX DX W/COLLJ SPEC WHEN PFRMD 01/05/2012 Colonoscopy COLONOSCOPY FLX DX W/COLLJ SPEC WHEN PFRMD 01/13/2021 DILATION AND CURETTAGE DXAND/THER NONOBSTETRIC Dilation AND curettage ESOPHAGOGASTRODUODENOSCOPY TRANSORAL DIAGNOSTIC 01/13/2021 EXC/DSTRJ LINGUAL TONSIL ANY METHOD SPX LIG/TRNSXJ FLP TUBE ABDL/VAG APPR UNI/BI Tubal ligation NEUROPLASTY AND/TRANSPOS MEDIAN NRV CARPAL TUNNE 06/08/2011 Carpal tunnel decomp, right PAST SURGICAL HISTORY OF 2007 removal growth between toes =left PAST SURGICAL HISTORY OF Multple myeloma's REVISE MEDIAN N/CARPAL TUNNEL SURG 06/28/2013 left CTR REVISE MEDIAN N/CARPAL TUNNEL SURG Left 01/29/2022 Left Carpal tunnel release with nerve wrap SALPINGO-OOPHORECTOMY COMPL/PRTL UNI/BI SPX 2002 Salpingo-oophorectomy SKIN BIOPSY HX TOTAL ABDOMINAL HYSTERECT W/WO RMVL TUBE OVARY 2003 Hysterectomy, ELLIOT VAGINAL HYSTERECTOMY ALLERGIES Patient has no known allergies. MEDICATIONS Current Outpatient Medications Medication Sig gabapentin (NEURONTIN) 100 mg capsule Take 1 capsule by mouth two times a day for 30 days. gabapentin (NEURONTIN) 100 mg capsule Take 2 capsules by mouth daily at bedtime for 30 days. omeprazole (PRILOSEC) 40 mg capsule Take 1 capsule by mouth once daily. pravastatin (PRAVACHOL) 40 mg tablet Take 1 tablet by mouth once daily. lisinopril-hydroCHLOROthiazi de (ZESTORETIC) 10-12.5 mg per tablet Take 1 tablet by mouth every morning. latanoprost (XALATAN) 0.005 % ophthalmic solution Use 1 Drop in both eyes daily at bedtime. TO AFFECTED EYE(S) Blood Pressure Cuff - Home Use BLOOD PRESSURE CUFF FOR HOME USE. DX: LABILE BLOOD PRESSURE Calcium Carbonate-Vitamin D2 600 mg calcium- 200 unit tab Take 1 tablet by mouth once daily. No current facility-administered medications for this visit. FAMILY HISTORY Problem Relation Age of Onset Heart Mother Diabetes Mother Cancer Mother UTERUS Diabetes Father Heart Father Cancer Maternal Grandmother UTERUS Colon Cancer Daughter Social History Tobacco Use Smoking status: Never Smokeless tobacco: Never Vaping Use Vaping status: Never Used Substance Use Topics Alcohol use: No Drug use: No REVIEW OF SYSTEMS Constitutional: (+) fatigue, (+) insomnia, (-) somnolence Genitourinary: (+) nocturia Musculoskeletal: (+) back pain, (+) right leg pain, (+) pain with walking Neurological: (+) bilateral foot numbness, (-) dizziness EXAM: BP 128/64 Pulse 64 Wt 90.3 kg (199 lb) SpO2 95% BMI 32.12 kg/m? PHYSICAL EXAM: GENERAL: NAD, alert and oriented. SKIN: Unremarkable, no rash or skin lesions. HEAD: Normocephalic. EXTREMITIES: Normal, no deformities, no skin discoloration, no edema. NEURO: Awake, alert and oriented x3, cranial n (more content not included)... Normal [facility] CNOV Office Visit (WSTR ) LIBIA NAJERA ([id number]) 1940 F NFR Date Time Provider Department 11/30/24 7:15 AM [facility] During your visit today, we recorded the following information about you: Temperature Pulse Respiration Blood pressure 97.7 degrees 81/minute 20/minute 130/70 Weight 90.6 kg Jamey Dye MD 11/30/2024 7:46 AM Signed Patient presents with right upper leg pain. She has evaluated for this issue in family medicine 1 month ago and has started physical therapy for it. She reports the pain is worsened and her therapist is out for a - it interfered with sleep last night. [facility] with request for stronger pain medicine since gabapentin and acetaminophen are not sufficient for her pain. She denies any new issues such as injury and does not think she needs an xray. She ambulates with a cane. She has not attempted to make a primary care appointment but was interested in making one-facilitated for today. Allergies As of Date: 11/30/2024 (No Known Allergies) Date Reviewed: 11/30/2024 Reviewed by: Graciela Ryan MA - Fully Assessed Reason for Visit: Trauma [112] Cmt: Right upper leg pain after fall this morning Primary Visit Diagnosis:Right leg pain [M79.604] Prescriptions as of 11/30/2024 - gabapentin (NEURONTIN) 100 mg capsule Take 1 capsule by mouth two times a day for 30 days. - gabapentin (NEURONTIN) 100 mg capsule Take 2 capsules by mouth daily at bedtime for 30 days. - omeprazole (PRILOSEC) 40 mg capsule Take 1 capsule by mouth once daily. - pravastatin (PRAVACHOL) 40 mg tablet Take 1 tablet by mouth once daily. - lisinopril-hydroCHLOROthiazi de (ZESTORETIC) 10-12.5 mg per tablet Take 1 tablet by mouth every morning. - latanoprost (XALATAN) 0.005 % ophthalmic solution Use 1 Drop in both eyes daily at bedtime. TO AFFECTED EYE(S) - Blood Pressure Cuff - Home Use BLOOD PRESSURE CUFF FOR HOME USE. DX: LABILE BLOOD PRESSURE - Calcium Carbonate-Vitamin D2 600 mg calcium- 200 unit tab Take 1 tablet by mouth once daily. Problem List As Of Date 11/30/2024 Noted Resolved Myalgia and myositis, unspecified [[id number]] 03/17/2001 04/22/2011 Essential hypertension, benign [I10] Backache, unspecified [M54.9] 07/31/2018 Nonspecific abnormal electrocardiogram (ECG) (E* 10/31/2020 Hyperlipidemia with target LDL less than 130 [E* OBESITY [E66.9] 04/13/2005 04/04/2024 ESOPHAGEAL REFLUX [K21.9] 12/03/2005 PAIN FOOT [M79.609] 11/25/2006 08/11/2009 Routine general medical examination at [facility]*02/07/2007 04/22/2011 Symptomatic menopausal or female climacteric st*09/26/2007 04/22/2011 ATROPHIC VAGINITIS [N95.2] 09/26/2007 Urgency of Urination [R39.15] 09/26/2007 08/11/2009 FEMALE STRESS INCONTINENCE [N39.3] 09/26/2007 Mastalgia [N64.4] 03/15/2008 10/31/2020 Unspecified essential hypertension [I10] 07/01/2008 04/22/2011 Hip pain [M25.559] 08/11/2009 07/31/2018 Carpal tunnel syndrome [G56.00] 08/11/2009 GORDO-inhibitor cough [R05.8, T46.4X5A] 07/27/2010 04/22/2011 Grief reaction [F43.20] 01/19/2011 02/09/2018 Essential hypertension, benign [I10] 04/22/2011 01/05/2019 Impingement syndrome of left shoulder [M75.42] 08/11/2015 07/31/2018 Melanoma of left upper arm (HCC) [C43.62] 06/30/2016 10/03/2024 Reactive depression [F32.9] 07/31/2018 01/05/2019 Stage 3a chronic kidney disease (HCC) [N18.31] 07/31/2018 Fibrocystic disease of left breast [N60.12] 02/02/2019 Impaired fasting glucose [R73.01] 05/31/2019 BPPV (benign paroxysmal positional vertigo), un*07/04/2019 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/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 Non-cardiac chest pain [R07.89] 04/29/2020 10/31/2020 Glaucoma suspect of both eyes [H40.003] 10/31/2020 Neuropathy - (NOS) [G62.9] 05/18/2021 Iron deficiency [E61.1] 05/18/2021 03/17/2023 Skin cancer [C44.90] 10/19/2021 10/19/2021 Sciatica [M54.30] 04/21/2022 Strain of trapezius muscle [S46.819A] 04/21/2022 03/17/2023 Malignant hypertension [I10] 09/10/2022 03/17/2023 History of iron deficiency [Z86.39] 03/17/2023 Hyperglycemia [R73.9] 03/17/2023 History of melanoma [Z85.820] 10/03/2024 Pain in left forearm [M79.632] 05/21/2024 Strain of trapezius muscle [S46.819A] 04/17/2024 Lumbar spondylosis [M47.816] 11/13/2024 Encounter Status:Closed by JAMEY DYE on 11/30/24 [facility] CNTHERAPYon 11-27-2024 CNTHERAPY OT/PT/Speech Visit ( PTWS) LIBIA NAJERA ([id number]) 1940 F NFR Date Time Provider Department 11/27/24 2:00 PM MICHAEL RUSSO PTWS Date Time Provider Department Center 11/27/2024 2:00 PM [id number], BRENT PTWS [place] [facility] Reason for Visit: Physical Therapy [503] Primary Visit Diagnosis:Lumbar spondylosis [M47.816] Allergies As of Date: 11/27/2024 (No Known Allergies) Date Reviewed: 11/02/2024 Reviewed by: Zahida Perry, [place].MEASUREMENT ADVISOR - Fully Assessed Prescriptions as of 11/27/2024 - gabapentin (NEURONTIN) 100 mg capsule Take 1 capsule by mouth two times a day for 30 days. - gabapentin (NEURONTIN) 100 mg capsule Take 2 capsules by mouth daily at bedtime for 30 days. - omeprazole (PRILOSEC) 40 mg capsule Take 1 capsule by mouth once daily. - pravastatin (PRAVACHOL) 40 mg tablet Take 1 tablet by mouth once daily. - lisinopril-hydroCHLOROthiazi de (ZESTORETIC) 10-12.5 mg per tablet Take 1 tablet by mouth every morning. - latanoprost (XALATAN) 0.005 % ophthalmic solution Use 1 Drop in both eyes daily at bedtime. TO AFFECTED EYE(S) - Blood Pressure Cuff - Home Use BLOOD PRESSURE CUFF FOR HOME USE. DX: LABILE BLOOD PRESSURE - Calcium Carbonate-Vitamin D2 600 mg calcium- 200 unit tab Take 1 tablet by mouth once daily. Normal [facility] [id number] 11-13-2024 [id number] HNO ID: [id number] Author: MICHAEL RUSSO PT Service: ? Author Type: Physical Therapist Type: [id number] Filed: 11/13/2024 11:35 Note Text: [facility] Physical Therapy Plan of Care Certification Patient Name: Libia Najera : 1940 [facility] #: [id number] Date: 11/13/2024 To: Nina Marley APRN.C* From Therapist: Michael Russo PT RE: Patient Certification/ Recertification Your review, approval and electronic signature are required in order to comply with Payor: [employer] MEDICARE / Plan: [employer] MEDICARE PPO / Product Type: PPO / regulations. The identified Physical Therapy PLAN OF CARE for the patient is as follows: M47.816 Lumbar spondylosis M17.0 Primary osteoarthritis of both knees PLAN OF CARE: Assessment: Libia Najera presents with chief complaint of lumbar radiculopathy that interferes with walking, stair negotiation, rising from a chair . The patient presents with impairments in ADL's, independence in exercise, overall function, range of motion, strength, symptom management, and tissue tenderness. PROMIS? (Patient-Reported Outcomes Measurement Information System) scores were reviewed and identified as a rehabilitation concern. Prognosis for therapy is Good due to: current objective clinical presentation, good overall health status, good support system/ coping skills. The patient will benefit from skilled therapy services to meet the goals established for this plan of care as noted below. Classification Pain Mechanism Classification: Neuropathic Low Back Pain Classification: Symptom Modulation Goals for Episode of Care: established 11/13/24 Patient reported outcome of physical function will increase T-score by a minimum 5 points. Independent in home exercises. Patient will decrease pain to 0/10 with functional activities to allow patient to improve ambulation, transfers, and standing tolerance for ADLs. Restore pain-free lumbar ROM to WFL to allow for improved transfers and walking. Stand / Walk without limitations, without pain/symptoms. Patient will increase strength of core and postural muscles to WFL to allow for improved position tolerance for standing and walking. Patient Goals: decrease pain and stay active Time Frame for Goals and Treatment : 12/25/24 Planned Interventions, Frequency, and Duration: Current Frequency: 1x/week Duration: 6 weeks Total Number of Visits Planned: 6 Planned Treatment Interventions: Therapeutic exercise (92895), Manual therapy (23600), Therapeutic activities (77149), Self-fci management (40628), Patient/Family/Caregiver Education, Body Mechanics Training PLAN FOR NEXT VISIT: Review, correct and progress HEP to tolerance. Continue with postural stretching and strengthening with flexion directional preference. Consider manual lumbar belt traction prn. Avoid WBing trunk flexion completely. Patient demonstrates good understanding of plan of care and treatment. The above goals and plan of care were discussed and agreed upon by patient/family. For further details regarding this patient refer to the Physical Therapy electronically documented visit dated 11/13/2024. Provider Attestation I have reviewed the treatment plan for Libia Najera, CC# [id number] for the period of 11/13/24 -- 12/25/24, established on 11/13/2024. Signature certifies the need for therapy services. Normal [facility] CNTHERAPYon 11-13-2024 CNTHERAPY OT/PT/Speech Visit ( PTWS) LIBIA NAJERA ([id number]) 1940 F NFR Date Time Provider Department 11/13/24 10:00 AM MICHAEL RUSSO [facility] Date Time Provider Department Center 11/13/2024 10:00 AM [id number], BRENT [facility] [facility] Reason for Visit: PT Eval [747] Physical Therapy [503] Visit Diagnoses:Lumbar spondylosis [M47.816] Primary osteoarthritis of both knees [M17.0] Allergies As of Date: 11/13/2024 (No Known Allergies) Date Reviewed: 11/02/2024 Reviewed by: Zahida Perry APRN.MEASUREMENT ADVISOR - Fully Assessed Prescriptions as of 11/13/2024 - gabapentin (NEURONTIN) 100 mg capsule Take 1 capsule by mouth two times a day for 30 days. - gabapentin (NEURONTIN) 100 mg capsule Take 2 capsules by mouth daily at bedtime for 30 days. - predniSONE (DELTASONE) 10 mg tablet Take 4 tabs daily x 3 days, then 3 tabs x 3 days, 2 tabs x 3 days, then 1 tab x3 days with food. - omeprazole (PRILOSEC) 40 mg capsule Take 1 capsule by mouth once daily. - pravastatin (PRAVACHOL) 40 mg tablet Take 1 tablet by mouth once daily. - lisinopril-hydroCHLOROthiazi de (ZESTORETIC) 10-12.5 mg per tablet Take 1 tablet by mouth every morning. - latanoprost (XALATAN) 0.005 % ophthalmic solution Use 1 Drop in both eyes daily at bedtime. TO AFFECTED EYE(S) - Blood Pressure Cuff - Home Use BLOOD PRESSURE CUFF FOR HOME USE. DX: LABILE BLOOD PRESSURE - Calcium Carbonate-Vitamin D2 600 mg calcium- 200 unit tab Take 1 tablet by mouth once daily. Professor Of Counseling: Therapy (PT/OT/Speech/Resp) ID: [id number] 11/13/2024 10:42 AM Author: MICHAEL RUSSO Signed by MICHAEL RUSSO PT on 11/13/2024 at 10:42 AM Document text: Program_ID:[id number] Access Code: [email or web address] URL: [email or web address] Date: 11-13-2024 Prepared By: Michael Russo Program Notes Exercises - Supine Lower Trunk Rotation - 2-3 x daily - 7 x weekly - 2 sets - 10 reps - Hooklying Single Knee to Chest Stretch - 2-3 x daily - 7 x weekly - sets - 3 reps - Supine Double Knee to Chest Modified - 2-3 x daily - 7 x weekly - sets - 3 reps Normal [facility] THERAPY NTon 11-13-2024 THERAPY NT HNO ID: [id number] Author: MICHAEL RUSSO PT Service: ? Author Type: Physical Therapist Type: Therapy (PT/OT/Speech/Resp) Filed: 11/13/2024 10:42 Note Text: Program_ID:[id number] Access Code: [email or web address] URL: [email or web address]/ Date: 11-13-2024 Prepared By: Michael Russo Program Notes Exercises - Supine Lower Trunk Rotation - 2-3 x daily - 7 x weekly - 2 sets - 10 reps - Hooklying Single Knee to Chest Stretch - 2-3 x daily - 7 x weekly - sets - 3 reps - Supine Double Knee to Chest Modified - 2-3 x daily - 7 x weekly - sets - 3 reps Normal [facility] CNPNon 11-09-2024 CNPN Telephone ([facility]IC[facility]) LIBIA NAJERA ([id number]) 1940 F NFR Date Time Provider Department 11/09/24 NINA MARLEY During your visit today, we recorded the following information about you: Tory Lehman RN 11/09/2024 8:53 AM Signed Patient calling and asking about knee and back x ray results. Please review and advise, HEDY Moura Christy, APRN.MEASUREMENT ADVISOR 11/09/2024 10:19 AM Addendum Please see the below message from Zahida on 11/05. Good morning... could you reach out to patient to update her on xray results showing mild osteoarthrosis bilateral knees, lumbar xray mild to moderate narrowing . We gave her a steroid taper. She already sees Dr Dixon for pain management of her neuropathy Left forearm pain, does she want us to send a note to him to see if he can manage her LE pain as well ? Or would she like an orthopedic consult? We can also try some PT. Thank you Laura Tillman RN 11/09/2024 12:07 PM Signed Pt called and is notified of providers results and instructions. Pt voices understanding. She states Dr Dixon has already been working on her L arm. She said, I don't care what the provider does, but we have to do something about it.. I said do you want her to put in a consult to Ortho and PT, Pt said she guesses but she wants to stay in [place]. Please place orders and call to set up appointments. HEDY Bagley Christy, APRN.MEASUREMENT ADVISOR 11/09/2024 1:09 PM Signed I went ahead and put the orders in for ortho and physical therapy. I also put a new referral in for pain management. She already follows with Dr. Dixon. Can we please also fax the referral over to him and see if they can help address her back pain, as well. Michelet Velásquez LPN 11/09/2024 1:54 PM Signed Pain Mgmt referral faxed to Dr. Vickers's office. Please assist pt with scheduling Ortho and PT appt's. JB Ochoa Stephanie 11/09/2024 4:05 PM Signed Spoke with patient and scheduled PT AND Ortho Consults. Allergies As of Date: 11/09/2024 (No Known Allergies) Date Reviewed: 11/02/2024 Reviewed by: Zahida Perry APRN.MEASUREMENT ADVISOR - Fully Assessed Reason for Visit: Results [95] Primary Visit Diagnosis:Lumbar spondylosis [M47.816] Other Visit Diagnosis:Primary osteoarthritis of both knees [M17.0] Order(s):CONSULT TO ORTHOPAEDICS [9026] Order #: [id number]: 1 FUTURE CONSULT TO PHYSICAL THERAPY [9032] Order #: [id number]: 1 FUTURE CONSULT TO PAIN MGT [936261] Order #: [id number]: 1 FUTURE Prescriptions as of 11/09/2024 - gabapentin (NEURONTIN) 100 mg capsule Take 1 capsule by mouth two times a day for 30 days. - gabapentin (NEURONTIN) 100 mg capsule Take 2 capsules by mouth daily at bedtime for 30 days. - predniSONE (DELTASONE) 10 mg tablet Take 4 tabs daily x 3 days, then 3 tabs x 3 days, 2 tabs x 3 days, then 1 tab x3 days with food. - omeprazole (PRILOSEC) 40 mg capsule Take 1 capsule by mouth once daily. - pravastatin (PRAVACHOL) 40 mg tablet Take 1 tablet by mouth once daily. - lisinopril-hydroCHLOROthiazi de (ZESTORETIC) 10-12.5 mg per tablet Take 1 tablet by mouth every morning. - latanoprost (XALATAN) 0.005 % ophthalmic solution Use 1 Drop in both eyes daily at bedtime. TO AFFECTED EYE(S) - Blood Pressure Cuff - Home Use BLOOD PRESSURE CUFF FOR HOME USE. DX: LABILE BLOOD PRESSURE - Calcium Carbonate-Vitamin D2 600 mg calcium- 200 unit tab Take 1 tablet by mouth once daily. Problem List As Of Date 11/09/2024 Noted Resolved Myalgia and myositis, unspecified [TOQ5622] 03/17/2001 04/22/2011 Essential hypertension, benign [I10] Backache, unspecified [M54.9] 07/31/2018 Nonspecific abnormal electrocardiogram (ECG) (E* 10/31/2020 Hyperlipidemia with target LDL less than 130 [E* OBESITY [E66.9] 04/13/2005 04/04/2024 ESOPHAGEAL REFLUX [K21.9] 12/03/2005 PAIN FOOT [M79.609] 11/25/2006 08/11/2009 Routine general medical examination at a [facility]*02/07/2007 04/22/2011 Symptomatic menopausal or female climacteric st*09/26/2007 04/22/2011 ATROPHIC VAGINITIS [N95.2] 09/26/2007 Urgency of Urination [R39.15] 09/26/2007 08/11/2009 FEMALE STRESS INCONTINENCE [N39.3] 09/26/2007 Mastalgia [N64.4] 03/15/2008 10/31/2020 Unspecified essential hypertension [I10] 07/01/2008 04/22/2011 Hip pain [M25.559] 08/11/2009 07/31/2018 Carpal tunnel syndrome [G56.00] 08/11/2009 GORDO-inhibitor cough [R05.8, T46.4X5A] 07/27/2010 04/22/2011 Grief reaction [F43.20] 01/19/2011 02/09/2018 Essential hypertension, benign [I10] 04/22/2011 01/05/2019 Impingement syndrome of left shoulder [M75.42] 08/11/2015 07/31/2018 Melanoma of left upper arm (HCC) [C43.62] 06/30/2016 10/03/2024 Reactive depression [F32.9] 07/31/2018 01/05/2019 Stage 3a chronic kidney disease (HCC) [N18.31] 07/31/2018 Fibrocystic disease of left breast [N60.12] 02/02/2019 Impaired fasting glucose [R73.01] 05/20 (more content not included)... Normal [facility] CNOVon 11-02-2024 CNOV Office Visit (FAMPWS ) LIBIA NAJERA ([id number]) 1940 F NFR Date Time Provider Department 11/02/24 10:00 AM ZAHIDA PERRY FAMPWS During your visit today, we recorded the following information about you: Pulse Respiration Blood pressure 49/minute 16/minute 114/70 Zahida Perry APRN.MEASUREMENT ADVISOR 11/02/2024 10:27 AM Addendum A short course of prednisone (a steroid taper) has been ordered to help reduce inflammation and ease your pain. Take it as directed by the pharmacy. Orders have been placed for an x-ray of your lumbar spine and an x-ray of your knees. These should be completed as you leave today. Continue using Tylenol as needed for pain when you are at home. May use the topical motrin as well to your knees Keep engaging in low impact activities like walking, as this can help manage arthritis pain. Zahida Perry APRN.[facility] 11/02/2024 12:45 PM Signed Subjective Patient ID: Libia is a 84 year old female who presents for Acute Visit (Bilateral leg pain- chronic; getting worse; currently seeing pain mgmt for hand pain). HPI Back and Leg Pain: - Pain localized to lower mid-back, with aching sensation in legs, particularly in the anterior thighs down into the knees - Aggravated by walking; pain rated 8-9/10 during ambulation. - Alleviated when sitting; sleep not affected. - Uses a cane for ambulation espeically longer distances - Denies leg swelling; reports occasional numbness after prolonged sitting in which she has fallen when she's gone to get up from a seated position (not recently), but indicating weakness - Pain exacerbated by cold temperatures. - Taking gabapentin 1 in the morning, 1 at noon, and 2 at night; believes pain worsened after increasing to 2 at night but this was increased by pain management (Dr Dixon's office) for her left forearm neuropathy pain, they are unaware of her leg pain and back pain. - Taking Tylenol with uncertain relief. - History of arthritis in knees and hips; previous knee x-rays in 2022 showed large joint effusion as well. - Has to keep moving and wants to, she still mows the yard (riding mower) couple of time per week Objective BP 114/70 Pulse (!) 49 Resp 16 SpO2 95% Physical Exam Constitutional: General: She is not in acute distress. Appearance: Normal appearance. HENT: Head: Normocephalic. Cardiovascular: Rate and Rhythm: Normal rate and regular rhythm. Pulses: Normal pulses. Heart sounds: Normal heart sounds. Pulmonary: Effort: No respiratory distress. Breath sounds: Normal breath sounds. Musculoskeletal: General: Tenderness present. Skin: General: Skin is warm and dry. Findings: No bruising. Neurological: Mental Status: She is oriented to person, place, and time. Gait: Gait abnormal. Bilateral tenderness above the knees into the thighs with palpation. Knees are soft and appear edematous without pitting but patient denies swelling. Bends legs without difficulty. Monitored gait, which is slightly stooped , slow and some shuffling, guarding due to pain with ambulation. Leg strength with resistance good. Sensation intact, no paresthesia LE Assessment AND Plan Bilateral leg pain Orders: XR LUMBAR GENERAL 3V AP/LAT/L5-S1; Future XR KNEE GENERAL 4V AP BOTH/PA BOTH/LAT/MERC BILATERAL; Future predniSONE (DELTASONE) 10 mg tablet; Take 4 tabs daily x 3 days, then 3 tabs x 3 days, 2 tabs x 3 days, then 1 tab x3 days with food. Primary osteoarthritis of both knees Orders: XR LUMBAR GENERAL 3V AP/LAT/L5-S1; Future XR KNEE GENERAL 4V AP BOTH/PA BOTH/LAT/MERC BILATERAL; Future predniSONE (DELTASONE) 10 mg tablet; Take 4 tabs daily x 3 days, then 3 tabs x 3 days, 2 tabs x 3 days, then 1 tab x3 days with food. - discussed follow up as needed and pending her xray results as she may benefit from an orthopedic consult if it's related to worsening arthritis or discussing with Dr Dixon's office. Will send notes to Dr Dixon's office as well so they are aware. Spinal stenosis of lumbar region with neurogenic claudication Orders: XR LUMBAR GENERAL 3V AP/LAT/L5-S1; Future XR KNEE GENERAL 4V AP BOTH/PA BOTH/LAT/MERC BILATERAL; Future predniSONE (DELTASONE) 10 mg tablet; Take 4 tabs daily x 3 days, then 3 tabs x 3 days, 2 tabs x 3 days, then 1 tab x3 days with food. Chronic pain syndrome Orders: gabapentin (NEURONTIN) 100 mg capsule; Take 1 capsule by mouth two times a day for 30 days. gabapentin (NEURONTIN) 100 mg capsule; Take 2 capsules by mouth daily at bedtime for 30 days. - managed by pain management (Dr Dixon),medication just updated from current orders Neuropathy - (NOS) Orders: gabapentin (NEURONTIN) 100 mg capsule; Take 1 capsule by mouth two times a day for 30 days. gabapentin (NEURONTIN) 100 mg capsule; Take 2 capsules by mouth daily at bedtime for 30 days. -managed by pain (more content not included)... Normal [facility] CNOV Office Visit (WSTR ) LIBIA NAJERA ([id number]) 1940 F NFR Date Time Provider Department 11/02/24 7:45 AM GRACE BRICEÑO [facility] During your visit today, we recorded the following information about you: Temperature Pulse Respiration Blood pressure 98 degrees 54/minute 20/minute 104/81 Weight 88 kg Grace Briceño, [place].MEASUREMENT ADVISOR 11/02/2024 8:42 AM Signed [facility] Subjective Libia Najera is a 84 year old female. Patient presents with: Ear Problem: Bilat ear clogged, unable to hear for awhile Ear Problem Associated symptoms include hearing loss. Pertinent negatives include no coughing, rash, rhinorrhea or sore throat. Libia Najera is a 84 year old female who presents with ears feeling clogged and unable to hear recently. States 'feels like something was crawling around in her left ear. She denies pain or fever. Denies associated URI symptoms. She has not used any medications for the ear symptoms. Review of Systems Constitutional: Negative for chills and fever. HENT: Positive for hearing loss. Negative for congestion, ear pain, postnasal drip, rhinorrhea, sinus pain, sneezing and sore throat. Respiratory: Negative for cough. Cardiovascular: Negative. Skin: Negative for color change and rash. Objective BP 104/81 Pulse (!) 54 Temp 36.7 ?C (98 ?F) Resp 20 Wt 88 kg (194 lb 0.1 oz) SpO2 97% BMI 31.31 kg/m? PAST MEDICAL HISTORY Diagnosis Date - Arthritis - Arthropathy, unspecified, site unspecified - Backache, unspecified - CKD (chronic kidney disease) stage 3, GFR 30-59 ml/min ([facility]) 07/31/2018 - Diverticulosis of colon (without mention of hemorrhage) - Essential hypertension, benign - Female stress incontinence mild - Melanoma ([facility]) 09/03/2020 Right anterior proximal upper arm - Nonspecific abnormal electrocardiogram (ECG) (EKG) PAC - Other and unspecified hyperlipidemia - Reactive depression 07/31/2018 - Symptomatic menopausal or female climacteric states PAST SURGICAL HISTORY Procedure Laterality Date - ABDOMINAL SURGERY HX - APPENDECTOMY - APPENDECTOMY HX - CHOLECSTOT/CHOLECSTOST W/EXPL DRG/RMVL ST1 SPX - COLONOSCOPY FLX DX W/COLLJ SPEC WHEN PFRMD 2001 Colonoscopy - COLONOSCOPY FLX DX W/COLLJ SPEC WHEN PFRMD 01/05/2012 Colonoscopy - COLONOSCOPY FLX DX W/COLLJ SPEC WHEN PFRMD 01/13/2021 - DILATION AND CURETTAGE DXAND/THER NONOBSTETRIC Dilation AND curettage - ESOPHAGOGASTRODUODENOSCOPY TRANSORAL DIAGNOSTIC 01/13/2021 - EXC/DSTRJ LINGUAL TONSIL ANY METHOD SPX - LIG/TRNSXJ FLP TUBE ABDL/VAG APPR UNI/BI Tubal ligation - NEUROPLASTY AND/TRANSPOS MEDIAN NRV CARPAL TUNNE 06/08/2011 Carpal tunnel decomp, right - PAST SURGICAL HISTORY OF 2007 removal growth between toes =left - PAST SURGICAL HISTORY OF Multple myeloma's - REVISE MEDIAN N/CARPAL TUNNEL SURG 06/28/2013 left CTR - REVISE MEDIAN N/CARPAL TUNNEL SURG Left 01/29/2022 Left Carpal tunnel release with nerve wrap - SALPINGO-OOPHORECTOMY COMPL/PRTL UNI/BI SPX 2002 Salpingo-oophorectomy - SKIN BIOPSY HX - TOTAL ABDOMINAL HYSTERECT W/WO RMVL TUBE OVARY 2003 Hysterectomy, ELLIOT - VAGINAL HYSTERECTOMY ALLERGIES Patient has no known allergies. MEDICATIONS - omeprazole (PRILOSEC) 40 mg capsule Take 1 capsule by mouth once daily. - pravastatin (PRAVACHOL) 40 mg tablet Take 1 tablet by mouth once daily. - lisinopril-hydroCHLOROthiazi de (ZESTORETIC) 10-12.5 mg per tablet Take 1 tablet by mouth every morning. - gabapentin (NEURONTIN) 100 mg capsule Take 100 mg by mouth three times a day. - latanoprost (XALATAN) 0.005 % ophthalmic solution Use 1 Drop in both eyes daily at bedtime. TO AFFECTED EYE(S) - Blood Pressure Cuff - Home Use BLOOD PRESSURE CUFF FOR HOME USE. DX: LABILE BLOOD PRESSURE - Calcium Carbonate-Vitamin D2 600 mg calcium- 200 unit tab Take 1 tablet by mouth once daily. FAMILY HISTORY Problem Relation Age of Onset - Heart Mother - Diabetes Mother - Cancer Mother UTERUS - Diabetes Father - Heart Father - Cancer Maternal Grandmother UTERUS - Colon Cancer Daughter Social History Tobacco Use - Smoking status: Never - Smokeless tobacco: Never Vaping Use - Vaping status: Never Used Substance Use Topics - Alcohol use: No - Drug use: No Physical Exam Vitals and nursing note reviewed. Constitutional: General: She is not in acute distress. Appearance: Normal appearance. She is not ill-appearing. HENT: Right Ear: Ear canal and external ear normal. Decreased hearing noted. No drainage, swelling or tenderness. There is impacted cerumen. Left Ear: Ear canal and external ear normal. Decreased hearing noted. No drainage, swelling or tenderness. There is impacted cerumen. Ears: Comments: Bilateral ears: Cerumen impairs exam of clinically significant portions of the external auditory canal, tympanic membrane or mi (more content not included)... Normal [facility] XR KNEE 4V AP/PA/LAT/MERCH B OHon 11-02-2024 XR KNEE 4V AP/PA/LAT/MERCH ROSLYN * * *Final Report* * * DATE OF EXAM: Nov 02 2024 11:03AM WOX [id number] - XR KNEE 4V AP/PA/LAT/MERCH ROSLYN / PROCEDURE REASON: multiple diagnoses * * * * Physician Interpretation * * * * KNEE RADIOGRAPHS - BILATERAL HISTORY: Bilateral leg pain Primary osteoarthritis of both knees TECHNOLOGIST PROVIDED HISTORY (if applicable): chronic low back pain. Chronic bilateral knee pain and osteoarthritis. TECHNIQUE: XR KNEE 4V AP/PA/LAT/MERCH ROSLYN COMPARISON: Comparison radiographs 02/04/2023 RESULT: Right knee: There is no acute osseous, articular, or soft tissue abnormality. There is no joint effusion or soft tissue swelling. Moderate medial and patellofemoral joint space narrowing with small marginal osteophytes Left knee: There is no acute osseous, articular, or soft tissue abnormality. There is no joint effusion or soft tissue swelling. Calcifications at the proximal MCL characteristic for sequela of previous trauma. Moderate medial and patellofemoral joint space narrowing with small marginal osteophytes IMPRESSION: 1. Mild osteoarthrosis of the bilateral knees Special Procedure Tech: PSCB Transcribe Date/Time: Nov 05 2024 6:14A Dictated by : SHAHZAD TERRY MD This examination was interpreted and the report reviewed and electronically signed by: SHAHZAD TERRY MD on Nov 05 2024 6:15AM EST [id number] Normal [facility] XR LUMBAR 3V AP/LAT/L5-S1on 11-02-2024 XR LUMBAR 3V AP/LAT/L5-S1 * * *Final Report* * * DATE OF EXAM: Nov 02 2024 11:03AM WOX [id number] - XR LUMBAR 3V AP/LAT/L5-S1 / PROCEDURE REASON: multiple diagnoses * * * * Physician Interpretation * * * * LUMBAR SPINE RADIOGRAPHS HISTORY: Bilateral leg pain Primary osteoarthritis of both knees TECHNOLOGIST PROVIDED HISTORY (if applicable): chronic low back pain. Chronic bilateral knee pain and osteoarthritis. TECHNIQUE: XR LUMBAR 3V AP/LAT/L5-S1 COMPARISON: None available RESULT: Counting reference: Lumbosacral junction. For the purposes of this report, L5-S1 is considered the last lumbar type disc space and L4-L5 is considered the level of the iliac crest. There is generalized osteopenia. Vertebral bodies have normal height and contour. There is no compression deformity or acute bony abnormality identified. Dextrocurvature at L3. Grade 1 anterolisthesis at L2-3, L3-4, L4-5 Mild to moderate multilevel lumbar disc space narrowing Moderate multilevel lumbar facet arthrosis with hypertrophic spurring . There are bilateral sacroiliac joint and hip degenerative changes partially visualized on this study. IMPRESSION: 1. Mild to moderate lumbar spondylosis. Special Procedure Tech: BOGDAN Transcribe Date/Time: Nov 05 2024 6:15A Dictated by : SHAHZAD TERRY MD This examination was interpreted and the report reviewed and electronically signed by: SHAHZAD TERRY MD on Nov 05 2024 6:17AM EST [id number] Normal [facility] [id number] 10-24-2024 [id number] HNO ID: [id number] Author: STEFFANY CARDOZA RN Service: ? Author Type: Registered Nurse Type: [id number] Filed: 10/24/2024 12:06 Note Text: The patient received a copy of Colonoscopy discharge instructions that contain information for how to contact the physician who performed the procedure and when to seek medical care. Normal [facility] Colonoscopyon 10-24-2024 Colonoscopy [facility] Gastrointestinal Endoscopy Patient Name: Libia Najera Procedure Date: 10/24/2024 11:12 AM Date of : 1940 Admit Type: Outpatient Age: 84 Gender: Female Note Status: Finalized Procedure: Colonoscopy Indications: High risk colon cancer surveillance: Personal history of adenomatous colonic polyps Providers: Rafy Raza MD Patient Profile: This is an 84 year old female. Refer to note in patient chart for documentation of history and physical. Last Colonoscopy: 3 years ago. Referring Physician: Laurie Wilson (Referring MD) Medicines: Fentanyl 75 micrograms IV, Midazolam 4 mg IV Complications: No immediate complications. Requesting Provider: Procedure: Pre-Anesthesia Assessment: - Prior to the procedure, a History and Physical was performed, and patient medications and allergies were reviewed. The patient is competent. The risks and benefits of the procedure and the sedation options and risks were discussed with the patient. All questions were answered and informed consent was obtained. Patient identification and proposed procedure were verified by the physician and the nurse in the procedure room. Mental Status Examination: normal. Airway Examination: normal oropharyngeal airway and neck mobility. Respiratory Examination: clear to auscultation. CV Examination: normal. Prophylactic Antibiotics: The patient does not require prophylactic antibiotics. Prior Anticoagulants: The patient has taken no anticoagulant or antiplatelet agents. ASA Grade Assessment: II - A patient with mild systemic disease. After reviewing the risks and benefits, the patient was deemed in satisfactory condition to undergo the procedure. The anesthesia plan was to use moderate sedation / analgesia (conscious sedation). Immediately prior to administration of medications, the patient was re-assessed for adequacy to receive sedatives. The heart rate, respiratory rate, oxygen saturations, blood pressure, adequacy of pulmonary ventilation, and response to care were monitored throughout the procedure. The physical status of the patient was re-assessed after the procedure. After I obtained informed consent, the scope was passed under direct vision. Throughout the procedure, the patient's blood pressure, pulse, and oxygen saturations were monitored continuously. The Colonoscope was introduced through the anus and advanced to the cecum, identified by the appendiceal orifice, ileocecal valve and palpation. The colonoscopy was performed without difficulty. The patient tolerated the procedure well. The quality of the bowel preparation was adequate to identify polyps greater than 5 mm in size. The ileocecal valve, appendiceal orifice, and rectum were photographed. Moderate Sedation: Moderate (conscious) sedation was administered by the nurse and supervised by the endoscopist. The patient's oxygen saturation, heart rate, blood pressure and response to care were monitored. Total physician intraservice time was 24 minutes. The administration of moderate sedation was initiated at 11:18. Findings: The perianal and digital rectal examinations were normal. Multiple medium-mouthed diverticula were found in the entire colon. The exam was otherwise without abnormality on direct and retroflexion views. Impression: - Diverticulosis in the entire examined colon. - The examination was otherwise normal on direct and retroflexion views. - No specimens collected. Recommendation: - Discharge patient to home. - Resume previous diet. - Continue present medications. - Repeat colonoscopy in 5 years for surveillance. - Patient has a contact number available for emergencies. The signs and symptoms of potential delayed complications were discussed with the patient. Return to normal activities tomorrow. Written discharge instructions were provided to the patient. Procedure Code(s): --- Professional --- 88348, Colonoscopy, flexible; diagnostic, including collection of specimen(s) by brushing or washing, when performed (separate procedure) G0500, Moderate sedation services provided by the same physician or other qualified health pet caretaker performing a gastrointestinal endoscopic service that sedation supports, requiring the presence of an independent trained observer to assist in the monitoring of the patient's level of consciousness and physiological status; initial 15 minutes of intra-service time; patient age 5 years or older (additional time may be reported with 26442, as appropriate) 01109, Moderate sedation; each additional 15 minutes intraservice time CPT copyright 202 [employer]. All rights reserved. The codes documented in this report are preliminary and upon degreasing solution reclaimer review may be revised to meet current compliance requirements. Attending Participation: I was present and participated during (more content not included)... Normal [facility] Colonoscopy Study observatio non 10-24-2024 [facility] Gastrointestinal Endoscopy Patient Name: Libia Najera Procedure Date: 10/24/2024 11:12 AM Date of : 1940 Admit Type: Outpatient Age: 84 Gender: Female Note Status: Finalized Procedure: Colonoscopy Indications: High risk colon cancer surveillance: Personal history of adenomatous colonic polyps Providers: Rafy Raza MD Patient Profile: This is an 84 year old female. Refer to note in patient chart for documentation of history and physical. Last Colonoscopy: 3 years ago. Referring Physician: Laurie Wilson (Referring MD) Medicines: Fentanyl 75 micrograms IV, Midazolam 4 mg IV Complications: No immediate complications. Requesting Provider: Procedure: Pre-Anesthesia Assessment: - Prior to the procedure, a History and Physical was performed, and patient medications and allergies were reviewed. The patient is competent. The risks and benefits of the procedure and the sedation options and risks were discussed with the patient. All questions were answered and informed consent was obtained. Patient identification and proposed procedure were verified by the physician and the nurse in the procedure room. Mental Status Examination: normal. Airway Examination: normal oropharyngeal airway and neck mobility. Respiratory Examination: clear to auscultation. CV Examination: normal. Prophylactic Antibiotics: The patient does not require prophylactic antibiotics. Prior Anticoagulants: The patient has taken no anticoagulant or antiplatelet agents. ASA Grade Assessment: II - A patient with mild systemic disease. After reviewing the risks and benefits, the patient was deemed in satisfactory condition to undergo the procedure. The anesthesia plan was to use moderate sedation / analgesia (conscious sedation). Immediately prior to administration of medications, the patient was re-assessed for adequacy to receive sedatives. The heart rate, respiratory rate, oxygen saturations, blood pressure, adequacy of pulmonary ventilation, and response to care were monitored throughout the procedure. The physical status of the patient was re-assessed after the procedure. After I obtained informed consent, the scope was passed under direct vision. Throughout the procedure, the patient's blood pressure, pulse, and oxygen saturations were monitored continuously. The Colonoscope was introduced through the anus and advanced to the cecum, identified by the appendiceal orifice, ileocecal valve and palpation. The colonoscopy was performed without difficulty. The patient tolerated the procedure well. The quality of the bowel preparation was adequate to identify polyps greater than 5 mm in size. The ileocecal valve, appendiceal orifice, and rectum were photographed. Moderate Sedation: Moderate (conscious) sedation was administered by the nurse and supervised by the endoscopist. The patient's oxygen saturation, heart rate, blood pressure and response to care were monitored. Total physician intraservice time was 24 minutes. The administration of moderate sedation was initiated at 11:18. Findings: The perianal and digital rectal examinations were normal. Multiple medium-mouthed diverticula were found in the entire colon. The exam was otherwise without abnormality on direct and retroflexion views. Impression: - Diverticulosis in the entire examined colon. - The examination was otherwise normal on direct and retroflexion views. - No specimens collected. Recommendation: - Discharge patient to home. - Resume previous diet. - Continue present medications. - Repeat colonoscopy in 5 years for surveillance. - Joan (more content not included)... [facility]OVATION [facility] Radiology Study observation (narrative) [facility] HISTORY PHYSICALon HISTORY PHYSICAL HNO ID: [id number] Author: RAFY RAZA MD Service: General Surgery Author Type: Physician Type: H&P Filed: 10/24/2024 11:02 Note Text: HISTORY AND PHYSICAL Libia Najera : 1940 REFERRING PHYSICIAN: No referring provider defined for this encounter. CHIEF COMPLAINT: Patient presents with: Consult HPI: Libia is a 84 year old female referred for endoscopy. Libia notes due for colon cancer screening-hx of polyps (2020). Libia denies abdominal pain.. Libia denies diarrhea. Libia denies constipation. Libia notes a change in bowel habits in July which has returned almost back to normal. -bowel habits have become more frequent: 3-4 a day -soft AND formed -not using fiber -denies watery diarrhea Libia denies melena. Libia denies bright red blood per rectum. Libia denies hemorrhoids. Libia notes family history of colon issues colon cancer in daughter AND grandson Libia notes a distant history of heartburn. -takes Prilosec daily with symptom relief Libia denies dysphagia. Libia denies a history of ulcers/ peptic ulcer disease. Libia has undergone prior endoscopy. Last colonoscopy was 12/[address] Raza at [facility]. Sedation:Midazolam 4 mg IV, Fentanyl 75 micrograms IV, Ondansetron 4 mg IV EGD Impression: - Normal examined jejunum. - Normal examined duodenum. - Gastritis. Biopsied. - A single gastric polyp. Resected and retrieved. Clip (MR conditional) was placed. - Normal esophagus. COLONOSCOPY Impression: - Three 5 to 18 mm polyps in the rectum and in the descending colon, removed with a cold snare. Resected and retrieved. Clip (MR conditional) was placed. - The examination was otherwise normal. CONVERTED FINAL DIAGNOSIS 1. Antrum, biopsy (A) - Antral mucosa with chronic inactive gastritis. - Negative for Helicobacter pylori (immunostain). 2. Gastric polyp, biopsy (B) - Fundic gland polyp. 3. Sigmoid colon, polyp, biospy (C) - Tubular adenoma. 4. Rectum, polyps, biopsy (D) - Tubular adenoma. MIREYA/toshia 01/14/2021 CURRENT MEDICATIONS Current Outpatient Medications Medication Sig gabapentin (NEURONTIN) 100 mg capsule TAKE 1 CAPSULE BY MOUTH AT BEDTIME X 3 DAYS THEN 1 CAP TWICE DAILY X 3 DAYS THEN 1 CAP 3 TIMES DAILY lisinopril-hydroCHLOROthiazi de (ZESTORETIC) 10-12.5 mg per tablet Take 1 tablet by mouth every morning. pravastatin (PRAVACHOL) 40 mg tablet Take 1 tablet by mouth once daily. omeprazole (PRILOSEC) 40 mg capsule Take 1 capsule by mouth once daily. latanoprost (XALATAN) 0.005 % ophthalmic solution Use 1 Drop in both eyes daily at bedtime. TO AFFECTED EYE(S) Calcium Carbonate-Vitamin D2 600 mg calcium- 200 unit tab Take 1 tablet by mouth once daily. peg 3350-Electrolytes (GOLYTELY) 236-22.74-6.74 -5.86 gram suspension Take 4,000 mL by mouth one time only for 1 dose. Refer to printed prep instructions from your provider. polyethylene glycol 3350 (MIRALAX ORAL) Take by mouth. (Patient not taking: Reported on 09/06/2024) Blood Pressure Cuff - Home Use BLOOD PRESSURE CUFF FOR HOME USE. DX: LABILE BLOOD PRESSURE No current facility-administered medications for this visit. ALLERGIES: Patient has no known allergies. PAST MEDICAL HISTORY PAST MEDICAL HISTORY Diagnosis Date Arthritis Arthropathy, unspecified, site unspecified Backache, unspecified CKD (chronic kidney disease) stage 3, GFR 30-59 ml/min ([facility]) 07/31/2018 Diverticulosis of colon (without mention of hemorrhage) Essential hypertension, benign Female stress incontinence mild Melanoma ([facility]) 09/03/2020 Right anterior proximal upper arm Nonspecific abnormal electrocardiogram (ECG) (EKG) PAC Other and unspecified hyperlipidemia Reactive depression 07/31/2018 Symptomatic menopausal or female climacteric states PAST SURGICAL HISTORY PAST SURGICAL HISTORY Procedure Laterality Date ABDOMINAL SURGERY HX APPENDECTOMY APPENDECTOMY HX CHOLECSTOT/CHOLECSTOST W/EXPL DRG/RMVL ST1 SPX COLONOSCOPY FLX DX W/COLLJ SPEC WHEN PFRMD 2001 Colonoscopy COLONOSCOPY FLX DX W/COLLJ SPEC WHEN PFRMD 01/05/2012 Colonoscopy COLONOSCOPY FLX DX W/COLLJ SPEC WHEN PFRMD 01/13/2021 DILATION AND CURETTAGE DXAND/THER NONOBSTETRIC Dilation AND curettage ESOPHAGOGASTRODUODENOSCOPY TRANSORAL DIAGNOSTIC 01/13/2021 EXC/DSTRJ LINGUAL TONSIL ANY METHOD SPX LIG/TRNSXJ FLP TUBE ABDL/VAG APPR UNI/BI Tubal ligation NEUROPLASTY AND/TRANSPOS MEDIAN NRV CARPAL TUNNE 06/08/2011 Carpal tunnel decomp, right PAST SURGICAL HISTORY OF 2007 removal growth between toes =left PAST SURGICAL HISTORY OF Multple myeloma's REVISE MEDIAN N/CARPAL TUNNEL SURG 06/28/2013 left CTR REVISE MEDIAN N/CARPAL TUNNEL SURG Left 01/29/2022 Left Carpal tunnel release with nerve wrap SALPINGO-OOPHORECTOMY COMPL/PRTL UNI/BI SPX 2003 Salpingo-oophorectomy SKIN BIOPSY HX TOTAL ABDOMINAL HYSTERECT W/WO RMVL TUBE OVARY 2003 Hysterectomy, ELLIOT VAGINAL HYSTERECT (more content not included)... Normal [facility] 25(OH)D3 SerPl-mCncon 2024 25-hydroxyvitamin D3 [Mass/Vol] 29.9 ng/mL Low 31.0-80.0 [facility] Comment on above: Order Comment: Speci men Type: BLOOD SPECIMENOrdering Facility: [facility] Address: [address] [place] [address] Performed By: #### 1 989-3 ####[facility] LABCLIA [id number] [place] [address] [place] Basic metabolic 2000 panelon 10-11-2024 Anion gap [Moles/Vol] 11 mmol/L Normal 8-15 [facility] Comment on above: Order Comment: Speci men Type: BLOOD SPECIMENOrdering Facility: [facility] Address: [address] [place], [place] [address] Performed By: #### 2 432-2, 2731-01 ####[facility] LABCLIA [id number] [address] [address] [place] Calcium [Mass/Vol] 9.7 mg/dL Normal 8.5-10.2 [facility] Comment on above: Order Comment: Speci men Type: BLOOD SPECIMENOrdering Facility: [facility] Address: [address] [place] [address] Performed By: #### 2 2, 2731-01 ####[facility] LABCLIA [id number] [place] [id number] [place] Chloride [Moles/Vol] 103 mmol/L Normal 98-107 [facility] Comment on above: Order Comment: Speci men Type: BLOOD SPECIMENOrdering Facility: [facility] Address: [address] [place] [address] Performed By: #### 2 4320-07, 2731-01 ####[facility] LABCLIA [id number] [place] [id number] [place] CO2 [Moles/Vol] 27 mmol/L Normal 22-30 [facility] Comment on above: Order Comment: Speci men Type: BLOOD SPECIMENOrdering Facility: [facility] Address: [address] [place], [place] [id number] Performed By: #### 2 2, 2731-01 ####[facility] LABCLIA [id number] [address] [address] [place] Creatinine [Mass/Vol] 0.92 mg/dL Normal 0.58-0.96 [facility] Comment on above: Order Comment: Speci men Type: BLOOD SPECIMENOrdering Facility: [facility] Address: [address] [place], [place] [id number] Performed By: #### 2 2, 2731-01 ####[facility] [id number] [place] [address] [place] Creatinine and Glomerular filtration rate.predicted panel (S/P/Bld) 62 mL/min/1.73m??? Normal >=60 [facility] Comment on above: Order Comment: Specschuyler morgan Type: BLOOD SPECIMENOrdering Facility: [facility] Address: [address] [place] [address] Result Comment: Breana mated Glomerular Filtration Rate (eGFR) is calculated using the 2020 CKD-EPI creatinine equation. This equation utilizes serum creatinine, sex, and age as parameters. The creatinine assay has traceable calibration to isotope dilution-mass spectrometry. Refer to KDIGO guidelines for clinical interpretation. In patients with unstable renal function, e.g. those with acute kidney injury, the eGFR may not accurately reflect actual GFR. Performed By: #### 2 4321-2, 2731-8 ####[facility] [id number] [place] [address] [place] Glucose [Mass/Vol] 100 mg/dL High 74-99 [facility] Comment on above: Order Comment: Molly morgan Type: BLOOD SPECIMENOrdering Facility: [facility] Address: [address] [place] [address] Result Comment: The [place] Diabetes Association (ADA) provides guidance for cutoff values for fasting glucose and random glucose. The ADA defines fasting as no caloric intake for at least 8 hours. Fasting plasma glucose results between 100 to 125 mg/dL indicate increased risk for diabetes (prediabetes). Fasting plasma glucose results greater than or equal to 126 mg/dL meet the criteria for diagnosis of diabetes. In the absence of unequivocal hyperglycemia, results should be confirmed by repeat testing. In a patient with classic symptoms of hyperglycemia or hyperglycemic crisis, random plasma glucose results greater than or equal to 200 mg/dL meet the criteria for diagnosis of diabetes. Reference: Standards of Medical Care in Diabetes 2016, [place] Diabetes Association. Diabetes Care. 2016.39(Suppl 1). Performed By: #### 2 4321-2, 2731-8 ####[facility] [id number] [place] [address] [place] Potassium [Moles/Vol] 4.0 mmol/L Normal 3.7-5.1 [facility] Comment on above: Order Comment: Speci men Type: BLOOD SPECIMENOrdering Facility: [facility] Address: [address] [place] [address] Performed By: #### 2 4321-2, 8 ####[facility] LABCLIA [id number] [place] [address] [place] Sodium [Moles/Vol] 141 mmol/L Normal 136-144 [facility] Comment on above: Order Comment: Speci men Type: BLOOD SPECIMENOrdering Facility: [facility] Address: [address] [place] [address] Performed By: #### 2 4321-2, 8 ####[facility] LABCLIA [id number] [place] [address] [place] Urea nitrogen [Mass/Vol] 15 mg/dL Normal 7-21 [facility] Comment on above: Order Comment: Speci men Type: BLOOD SPECIMENOrdering Facility: [facility] Address: [address] [place] [address] Performed By: #### 2 4321-2, 8 ####[facility] LABIA [id number] [place] [address] [place] Calcium.ionized [Moles/Vol]o n 10-11-2024 Calcium.ionized (Bld) [Mass/Vol] 1.33 mmol/L High 1.08-1.30 [facility] Comment on above: Order Comment: Speci men Type: BLOOD SPECIMENOrdering Facility: [facility] Address: [address] [place] [address] Performed By: #### 1 995-0 ####[facility] LABIA [id number] [place] [address] [place] Calcium.ionized adjusted to pH 7.4 (Bld) [Moles/Vol] 1.29 mmol/L Normal 1.08-1.30 [facility] Comment on above: Order Comment: Speci men Type: BLOOD SPECIMENOrdering Facility: [facility] Address: [address] [place] [address] Performed By: #### 1 995-0 ####[facility] LABCLIA [id number] [place] [id number] [place] PTH-Intact SerPl-ncon 09-19 Parathyrin.intact [Mass/Vol] 41 pg/mL Normal 15-65 [facility] Comment on above: Order Comment: Speci men Type: BLOOD SPECIMENOrdering Facility: [facility] Address: [address] [place] [address] Performed By: #### 2 4321-2, 2731-8 ####[facility] LABCLIA [id number] [place] [id number] [place] Basic metabolic 2000 panelon 10-03-2024 Anion gap [Moles/Vol] 14 mmol/L Normal 8-15 [facility] Comment on above: Order Comment: Speci men Type: BLOOD SPECIMENOrdering Facility: [facility] Address: [address] [place] [address] Performed By: #### 2 4321-2 ####[facility] LABCLIA [id number] [place] [address] [place] Calcium [Mass/Vol] 10.3 mg/dL High 8.5-10.2 [facility] Comment on above: Order Comment: Speci men Type: BLOOD SPECIMENOrdering Facility: [facility] Address: [address] [place] [address] Performed By: #### 2 4321-2 ####[facility] LABCLIA [id number] [address] [place] [address] [place] Chloride [Moles/Vol] 99 mmol/L Normal 98-107 [facility] [place] Comment on above: Order Comment: Speci men Type: BLOOD SPECIMENOrdering Facility: [facility] Address: [address] [place] [address] Performed By: #### 2 4321-2 ####[facility] LABCLIA [id number] [place] [id number] [place] CO2 [Moles/Vol] 26 mmol/L Normal 22-30 [facility] Comment on above: Order Comment: Speci men Type: BLOOD SPECIMENOrdering Facility: [facility] Address: [address] [place] [address] Performed By: #### 2 4321-2 ####[facility] LABIA [id number] [address] [place] [facility] Creatinine [Mass/Vol] 0.96 mg/dL Normal 0.58-0.96 [facility] Comment on above: Order Comment: Speci men Type: BLOOD SPECIMENOrdering Facility: [facility] Address: [address] [place] [address] Performed By: #### 2 4321-2 ####[facility] LABIA [id number] [address] Creatinine and Glomerular filtration rate.predicted panel (S/P/Bld) 58 mL/min/1.73m??? Low >=60 [facility] Comment on above: Order Comment: Speci men Type: BLOOD SPECIMENOrdering Facility: [facility] Address: [address] [place] [address] Result Comment: Breana mated Glomerular Filtration Rate (eGFR) is calculated using the 2020 CKD-EPI creatinine equation. This equation utilizes serum creatinine, sex, and age as parameters. The creatinine assay has traceable calibration to isotope dilution-mass spectrometry. Refer to KDIGO guidelines for clinical interpretation. In patients with unstable renal function, e.g. those with acute kidney injury, the eGFR may not accurately reflect actual GFR. Performed By: #### 2 4321-2 ####[facility] LABCLIA [id number] [place] [address] [place] Glucose [Mass/Vol] 96 mg/dL Normal 74-99 [facility] Comment on above: Order Comment: Speci men Type: BLOOD SPECIMENOrdering Facility: [facility] Address: [address] [place] [address] Result Comment: The [place] Diabetes Association (ADA) provides guidance for cutoff values for fasting glucose and random glucose. The ADA defines fasting as no caloric intake for at least 8 hours. Fasting plasma glucose results between 100 to 125 mg/dL indicate increased risk for diabetes (prediabetes). Fasting plasma glucose results greater than or equal to 126 mg/dL meet the criteria for diagnosis of diabetes. In the absence of unequivocal hyperglycemia, results should be confirmed by repeat testing. In a patient with classic symptoms of hyperglycemia or hyperglycemic crisis, random plasma glucose results greater than or equal to 200 mg/dL meet the criteria for diagnosis of diabetes. Reference: Standards of Medical Care in Diabetes 2016, [place] Diabetes Association. Diabetes Care. 2016.39(Suppl 1). Performed By: #### 2 4321-2 ####[facility] LABCLIA [id number] [place] [address] [place] Potassium [Moles/Vol] 4.3 mmol/L Normal 3.7-5.1 [facility] Comment on above: Order Comment: Speci men Type: BLOOD SPECIMENOrdering Facility: [facility] Address: [address] [place] [address] Performed By: #### 2 4321-2 ####[facility] LABCLIA [id number] [place] [address] [place] Sodium [Moles/Vol] 139 mmol/L Normal 136-144 [facility] Comment on above: Order Comment: Speci men Type: BLOOD SPECIMENOrdering Facility: [facility] Address: [address] [place] [address] Performed By: #### 2 4321-2 ####[facility] LABCLIA [id number] [place] [address] [place] Urea nitrogen [Mass/Vol] 18 mg/dL Normal 7-21 [facility] Comment on above: Order Comment: Speci men Type: BLOOD SPECIMENOrdering Facility: [facility] Address: [address] [place] [address] Performed By: #### 2 4321-2 ####[facility] LABCLIA [id number] ROSALVA CLIFFORD [id number] [place] [address] [facility] CNOVon 10-03-2024 CNOV Office Visit (FAMPWS ) LIBIA NAJERA ([id number]) 1940 F NFR Date Time Provider Department 10/03/24 9:40 AM BRAULIO WHITNEY FAMPWS During your visit today, we recorded the following information about you: Pulse Blood pressure Weight 53/minute 124/64 88.5 kg Braulio Whitney MD 10/03/2024 10:04 AM Signed .Braulio Gutierrez MD 10/03/2024 11:50 AM Signed Patient presents with: 6 Month Exam HPI: Patient presents today for office visit for follow up. HYPERTENSION: doing well Denies chest pain, shortness of breath. No new dizziness. Gerd: doing well. Follows with her eye doc No myalgias. Tolerating statin. Monitoring her renal function. Avoid nsaids. Having pain with recent scar on left forearm from skin cancer excision. Now seeing Dr Dixon for same. Spinal stenosis causes some pain in the am but better as day progresses. MEDICATIONS: Current Outpatient Medications Medication Sig gabapentin (NEURONTIN) 100 mg capsule Take 100 mg by mouth three times a day. pravastatin (PRAVACHOL) 40 mg tablet Take 1 tablet by mouth once daily. omeprazole (PRILOSEC) 40 mg capsule Take 1 capsule by mouth once daily. latanoprost (XALATAN) 0.005 % ophthalmic solution Use 1 Drop in both eyes daily at bedtime. TO AFFECTED EYE(S) Calcium Carbonate-Vitamin D2 600 mg calcium- 200 unit tab Take 1 tablet by mouth once daily. lisinopril-hydroCHLOROthiazi de (ZESTORETIC) 10-12.5 mg per tablet Take 1 tablet by mouth every morning. Blood Pressure Cuff - Home Use BLOOD PRESSURE CUFF FOR HOME USE. DX: LABILE BLOOD PRESSURE No current facility-administered medications for this visit. ALLERGIES: ALLERGIES No Known Allergies PAST MEDICAL HISTORY Diagnosis Date Arthritis Arthropathy, unspecified, site unspecified Backache, unspecified CKD (chronic kidney disease) stage 3, GFR 30-59 ml/min ([facility]) 07/31/2018 Diverticulosis of colon (without mention of hemorrhage) Essential hypertension, benign Female stress incontinence mild Melanoma ([facility]) 09/03/2020 Right anterior proximal upper arm Nonspecific abnormal electrocardiogram (ECG) (EKG) PAC Other and unspecified hyperlipidemia Reactive depression 07/31/2018 Symptomatic menopausal or female climacteric states PAST SURGICAL HISTORY Procedure Laterality Date ABDOMINAL SURGERY HX APPENDECTOMY APPENDECTOMY HX CHOLECSTOT/CHOLECSTOST W/EXPL DRG/RMVL ST1 SPX COLONOSCOPY FLX DX W/COLLJ SPEC WHEN PFRMD 2001 Colonoscopy COLONOSCOPY FLX DX W/COLLJ SPEC WHEN PFRMD 01/05/2012 Colonoscopy COLONOSCOPY FLX DX W/COLLJ SPEC WHEN PFRMD 01/13/2021 DILATION AND CURETTAGE DXAND/THER NONOBSTETRIC Dilation AND curettage ESOPHAGOGASTRODUODENOSCOPY TRANSORAL DIAGNOSTIC 01/13/2021 EXC/DSTRJ LINGUAL TONSIL ANY METHOD SPX LIG/TRNSXJ FLP TUBE ABDL/VAG APPR UNI/BI Tubal ligation NEUROPLASTY AND/TRANSPOS MEDIAN NRV CARPAL TUNNE 06/08/2011 Carpal tunnel decomp, right PAST SURGICAL HISTORY OF 2007 removal growth between toes =left PAST SURGICAL HISTORY OF Multple myeloma's REVISE MEDIAN N/CARPAL TUNNEL SURG 06/28/2013 left CTR REVISE MEDIAN N/CARPAL TUNNEL SURG Left 01/29/2022 Left Carpal tunnel release with nerve wrap SALPINGO-OOPHORECTOMY COMPL/PRTL UNI/BI SPX 2003 Salpingo-oophorectomy SKIN BIOPSY HX TOTAL ABDOMINAL HYSTERECT W/WO RMVL TUBE OVARY 2003 Hysterectomy, ELLIOT VAGINAL HYSTERECTOMY FAMILY HISTORY Problem Relation Age of Onset Heart Mother Diabetes Mother Cancer Mother UTERUS Diabetes Father Heart Father Cancer Maternal Grandmother UTERUS Colon Cancer Daughter Social History Tobacco Use Smoking status: Never Smokeless tobacco: Never Vaping Use Vaping status: Never Used Substance Use Topics Alcohol use: No Drug use: No Reviewed current medications, allergies, past medical history, surgical history, family history and social history today. Reviewed recent labs. REVIEW OF SYSTEMS All other reviewed and negative other than HPI. HEALTH MAINTENANCE: Reviewed health maintenance issues today and recommended the following in detail. - has colonoscopy coming up. Discussed shingles, rsv and covid 19 Has wellness exam in December. VITALS: BP 124/64 Pulse (!) 53 Wt 88.5 kg (195 lb) SpO2 96% BMI 31.47 kg/m? Last 4 Encounter Wt Readings: Date: Wt: 10/03/2024 88.5 kg (195 lb) 09/06/2024 89 kg (196 lb 3.2 oz) 07/30/2024 88.5 kg (195 lb) 04/04/2024 85.2 kg (187 lb 13.3 oz) PHYSICAL EXAMINATION: General appearance: Well appearing, alert, in no acute distress, well-hydrated, well nourished. Skin: scar on left forearm. No redness or warmth. Lungs: Lungs clear to auscultation. No wheezing, rhonchi, rales Heart: RRR without murmur, gallop, or rubs. No ectopy Abdomen: Normal abdominal exam, Abdomen soft, non-tender. Bowel sounds normal. No masses, organomegaly Extremities: No deformities, edema, (more content not included)... Normal [facility] HbA1c (Bld)on 10-03-2024 Average glucose Estimated from glycated hemoglobin (Bld) [Mass/Vol] 123 mg/dL [facility] Comment on above: eAG: (Estimated aver age glucose) is a calculated value from HgbA1c and is inside outside sales representative of the average blood glucose level in the last 2-3 month period. HbA1c (Bld) [Mass fraction] 5.9 % High 4.3 - 5.6 % [facility] Comment on above: [place] Diabetes As sociation guidelines indicate that patients with HgbA1c in the range 5.7-6.4% are at increased risk for development of diabetes, and intervention by lifestyle modification may be beneficial. HgbA1c greater or equal to 6.5% is considered diagnostic of diabetes. Interpretation and review of laboratory results Abnormal [facility] Average glucose Estimated from glycated hemoglobin (Bld) [Mass/Vol] 123 mg/dL Normal [facility] Comment on above: Order Comment: Molly morgan Type: BLOOD SPECIMENOrdering Facility: [facility] Address: [address] [place] [address] Result Comment: eAG: (Estimated average glucose) is a calculated value from HgbA1c and is inside outside sales representative of the average blood glucose level in the last 2-3 month period. Performed By: #### 5 5454-3 ####[facility] LABIA [id number] [place] [address] [place] HbA1c (Bld) [Mass fraction] 5.9 % High 4.3-5.6 [facility] Comment on above: Order Comment: Molly morgan Type: BLOOD SPECIMENOrdering Facility: [facility] Address: [address] [place] [address] Result Comment: [place] Diabetes Association guidelines indicate that patients with HgbA1c in the range 5.7-6.4% are at increased risk for development of diabetes, and intervention by lifestyle modification may be beneficial. HgbA1c greater or equal to 6.5% is considered diagnostic of diabetes. Performed By: #### 5 5454-3 ####[facility] LABCLIA [id number] [address] [place] CNOVon 09-06-2024 CNOV Office Visit (GENSWS ) LIBIA NAJERA ([id number]) 1940 F NFR Date Time Provider Department 09/06/24 2:00 PM LAURIE WILSON GENSWS During your visit today, we recorded the following information about you: Temperature Pulse Respiration Blood pressure 98.4 degrees 77/minute 17/minute 152/76 Weight 89 kg Laurie [place], [place] 09/06/2024 2:16 PM Signed HISTORY AND PHYSICAL Libia Najera : 1940 REFERRING PHYSICIAN: No referring provider defined for this encounter. CHIEF COMPLAINT: Patient presents with: Consult HPI: Libia is a 84 year old female referred for endoscopy. Libia notes due for colon cancer screening-hx of polyps (2020). Libia denies abdominal pain.. Libia denies diarrhea. Libia denies constipation. Libia notes a change in bowel habits in July which has returned almost back to normal. -bowel habits have become more frequent: 3-4 a day -soft AND formed -not using fiber -denies watery diarrhea Libia denies melena. Libia denies bright red blood per rectum. Libia denies hemorrhoids. Libia notes family history of colon issues colon cancer in daughter AND grandson Libia notes a distant history of heartburn. -takes Prilosec daily with symptom relief Libia denies dysphagia. Libia denies a history of ulcers/ peptic ulcer disease. Libia has undergone prior endoscopy. Last colonoscopy was 12/[address] Raza at [facility]. Sedation:Midazolam 4 mg IV, Fentanyl 75 micrograms IV, Ondansetron 4 mg IV EGD Impression: - Normal examined jejunum. - Normal examined duodenum. - Gastritis. Biopsied. - A single gastric polyp. Resected and retrieved. Clip (MR conditional) was placed. - Normal esophagus. COLONOSCOPY Impression: - Three 5 to 18 mm polyps in the rectum and in the descending colon, removed with a cold snare. Resected and retrieved. Clip (MR conditional) was placed. - The examination was otherwise normal. CONVERTED FINAL DIAGNOSIS 1. Antrum, biopsy (A) - Antral mucosa with chronic inactive gastritis. - Negative for Helicobacter pylori (immunostain). 2. Gastric polyp, biopsy (B) - Fundic gland polyp. 3. Sigmoid colon, polyp, biospy (C) - Tubular adenoma. 4. Rectum, polyps, biopsy (D) - Tubular adenoma. MIREYA/toshia 01/14/2021 Current Outpatient Medications Medication Sig gabapentin (NEURONTIN) 100 mg capsule TAKE 1 CAPSULE BY MOUTH AT BEDTIME X 3 DAYS THEN 1 CAP TWICE DAILY X 3 DAYS THEN 1 CAP 3 TIMES DAILY lisinopril-hydroCHLOROthiazi de (ZESTORETIC) 10-12.5 mg per tablet Take 1 tablet by mouth every morning. pravastatin (PRAVACHOL) 40 mg tablet Take 1 tablet by mouth once daily. omeprazole (PRILOSEC) 40 mg capsule Take 1 capsule by mouth once daily. latanoprost (XALATAN) 0.005 % ophthalmic solution Use 1 Drop in both eyes daily at bedtime. TO AFFECTED EYE(S) Calcium Carbonate-Vitamin D2 600 mg calcium- 200 unit tab Take 1 tablet by mouth once daily. peg 3350-Electrolytes (GOLYTELY) 236-22.74-6.74 -5.86 gram suspension Take 4,000 mL by mouth one time only for 1 dose. Refer to printed prep instructions from your provider. polyethylene glycol 3350 (MIRALAX ORAL) Take by mouth. (Patient not taking: Reported on 09/06/2024) Blood Pressure Cuff - Home Use BLOOD PRESSURE CUFF FOR HOME USE. DX: LABILE BLOOD PRESSURE No current facility-administered medications for this visit. ALLERGIES: Patient has no known allergies. PAST MEDICAL HISTORY Diagnosis Date Arthritis Arthropathy, unspecified, site unspecified Backache, unspecified CKD (chronic kidney disease) stage 3, GFR 30-59 ml/min ([facility]) 07/31/2018 Diverticulosis of colon (without mention of hemorrhage) Essential hypertension, benign Female stress incontinence mild Melanoma ([facility]) 09/03/2020 Right anterior proximal upper arm Nonspecific abnormal electrocardiogram (ECG) (EKG) PAC Other and unspecified hyperlipidemia Reactive depression 07/31/2018 Symptomatic menopausal or female climacteric states PAST SURGICAL HISTORY Procedure Laterality Date ABDOMINAL SURGERY HX APPENDECTOMY APPENDECTOMY HX CHOLECSTOT/CHOLECSTOST W/EXPL DRG/RMVL ST1 SPX COLONOSCOPY FLX DX W/COLLJ SPEC WHEN PFRMD 2001 Colonoscopy COLONOSCOPY FLX DX W/COLLJ SPEC WHEN PFRMD 01/05/2012 Colonoscopy COLONOSCOPY FLX DX W/COLLJ SPEC WHEN PFRMD 01/13/2021 DILATION AND CURETTAGE DXAND/THER NONOBSTETRIC Dilation AND curettage ESOPHAGOGASTRODUODENOSCOPY TRANSORAL DIAGNOSTIC 01/13/2021 EXC/DSTRJ LINGUAL TONSIL ANY METHOD SPX LIG/TRNSXJ FLP TUBE ABDL/VAG APPR UNI/BI Tubal ligation NEUROPLASTY AND/TRANSPOS MEDIAN NRV CARPAL TUNNE 06/08/2011 Carpal tunnel decomp, right PAST SURGICAL HISTORY OF 2007 removal growth between toes =left PAST SURGICAL HISTORY OF Multple myeloma's REVISE MEDIAN N/CARPAL TUNNEL SURG 06/28/2013 left CTR REVISE MEDIAN N/CARPAL TUNNEL SURG Left 01/29 (more content not included)... Normal [facility] CNOVon 07-30-2024 [facility] LIBIA NAJERA ([id number]) 1940 F NFR Date Time Provider Department 07/30/24 9:00 AM [facility] During your visit today, we recorded the following information about you: Pulse Respiration Blood pressure Weight 82/minute 16/minute 138/80 88.5 kg Nina Marley APRN.MEASUREMENT ADVISOR 07/30/2024 8:27 PM Signed This is a 84 year old female who presents today with: Patient presents with: Acute Visit: Elevated blood pressure readings per home bp; increase in bowel movements for the last 3 days- no stomach pain, no blood in stool HISTORY OF PRESENT ILLNESS: Libia Najera is a 84 year old female. Patient presents with: Acute Visit: Elevated blood pressure readings per home bp; increase in bowel movements for the last 3 days- no stomach pain, no blood in stool Increased bowel movements: Started 3-4 days ago Usually suffers from constipation When she eats she has to use the bathroom Having BM 3-4 times per day No blood in stools Stools are soft and formed Denies runny or watery diarrhea Familial hx of colon cancer in daughter and granddaughter Denies abd pain, nausea and vomiting Colonoscopy in 2020 with abnormal findings Does not feel like she's emptying completely Brown in color with black spots Denies incontinence Has not started eating new foods HTN: Patient is compliant with meds Yes Monitors bp at home: Yes. Denies side effects: Yes. Chest pain: No. Dyspnea: No. Edema: No. Palpitations: No. Syncope: No. Headache: No. Dizziness: No. Taking BP first thing in the morning before HTN meds about 1 hour prior Has shooting pain in the left wrist Has been following with pain management Using lidocaine topically PRN for pain and gabapentin 3 times per day Has an appointment with pain management tomorrow Notices BP level is high due to pain PAST MEDICAL HISTORY: PAST MEDICAL HISTORY Diagnosis Date Arthritis Arthropathy, unspecified, site unspecified Backache, unspecified CKD (chronic kidney disease) stage 3, GFR 30-59 ml/min ([facility]) 07/31/2018 Diverticulosis of colon (without mention of hemorrhage) Essential hypertension, benign Female stress incontinence mild Melanoma ([facility]) 09/03/2020 Right anterior proximal upper arm Nonspecific abnormal electrocardiogram (ECG) (EKG) PAC Other and unspecified hyperlipidemia Reactive depression 07/31/2018 Symptomatic menopausal or female climacteric states PAST SURGICAL HISTORY Procedure Laterality Date ABDOMINAL SURGERY HX APPENDECTOMY APPENDECTOMY HX CHOLECSTOT/CHOLECSTOST W/EXPL DRG/RMVL ST1 SPX COLONOSCOPY FLX DX W/COLLJ SPEC WHEN PFRMD 2001 Colonoscopy COLONOSCOPY FLX DX W/COLLJ SPEC WHEN PFRMD 01/05/2012 Colonoscopy COLONOSCOPY FLX DX W/COLLJ SPEC WHEN PFRMD 01/13/2021 DILATION AND CURETTAGE DXAND/THER NONOBSTETRIC Dilation AND curettage ESOPHAGOGASTRODUODENOSCOPY TRANSORAL DIAGNOSTIC 01/13/2021 EXC/DSTRJ LINGUAL TONSIL ANY METHOD SPX LIG/TRNSXJ FLP TUBE ABDL/VAG APPR UNI/BI Tubal ligation NEUROPLASTY AND/TRANSPOS MEDIAN NRV CARPAL TUNNE 06/08/2011 Carpal tunnel decomp, right PAST SURGICAL HISTORY OF 2007 removal growth between toes =left PAST SURGICAL HISTORY OF Multple myeloma's REVISE MEDIAN N/CARPAL TUNNEL SURG 06/28/2013 left CTR REVISE MEDIAN N/CARPAL TUNNEL SURG Left 01/29/2022 Left Carpal tunnel release with nerve wrap SALPINGO-OOPHORECTOMY COMPL/PRTL UNI/BI SPX 2003 Salpingo-oophorectomy SKIN BIOPSY HX TOTAL ABDOMINAL HYSTERECT W/WO RMVL TUBE OVARY 2003 Hysterectomy, ELLIOT VAGINAL HYSTERECTOMY ALLERGIES Patient has no known allergies. MEDICATIONS Current Outpatient Medications Medication Sig gabapentin (NEURONTIN) 100 mg capsule TAKE 1 CAPSULE BY MOUTH AT BEDTIME X 3 DAYS THEN 1 CAP TWICE DAILY X 3 DAYS THEN 1 CAP 3 TIMES DAILY lisinopril-hydroCHLOROthiazi de (ZESTORETIC) 10-12.5 mg per tablet Take 1 tablet by mouth every morning. pravastatin (PRAVACHOL) 40 mg tablet Take 1 tablet by mouth once daily. omeprazole (PRILOSEC) 40 mg capsule Take 1 capsule by mouth once daily. latanoprost (XALATAN) 0.005 % ophthalmic solution Use 1 Drop in both eyes daily at bedtime. TO AFFECTED EYE(S) polyethylene glycol 3350 (MIRALAX ORAL) Take by mouth. Blood Pressure Cuff - Home Use BLOOD PRESSURE CUFF FOR HOME USE. DX: LABILE BLOOD PRESSURE Calcium Carbonate-Vitamin D2 600 mg calcium- 200 unit tab Take 1 tablet by mouth once daily. No current facility-administered medications for this visit. FAMILY HISTORY Problem Relation Age of Onset Heart Mother Diabetes Mother Cancer Mother UTERUS Diabetes Father Heart Father Cancer Maternal Grandmother UTERUS Colon Cancer Daughter Social History Tobacco Use Smoking status: Never Smokeless tobacco: Never Vaping Use Vaping status: Never Used Substance Use Topics Alcohol use: No Drug use: (more content not included)... Normal [facility] Emergency Department Summary on 04-25-2024 Emergency Department Summary [facility] Medical Records Department [address] [place] [address] Emergency Department Summary 04/25/24 MR#: [id number] Acct: [id number] Name: LIBIA NAJERA Rep #: [id number] : 1940 83 From: Devin Arroyo DO PCP: Dr. Braulio Whitney MD Status:REG ER Location: ED HPI History of Present Illness Chief Complaint: Upper Extremity Injury Narrative Narrative: Patient is a 83-year-old female past medical history hypertension, glaucoma, hyperlipidemia who presents to the emergency department with chief complaint of left forearm pain. Patient states that back in February she had skin cancer removed in this region and has had some pain since then. She states that movement helps the pain and notes that she saw her primary care physician yesterday and was diagnosed with arthritis was given Lyrica she states that she took 1 last night and then this morning and does not seem to help the pain which prompted her to come here for further evaluation management. Patient denies any recent unintentional weight loss or night pain. [facility] Medical History (Updated 04/25/24 @ 09:[address] Devin Arroyo, ) Hyperlipemia Hypertension Glaucoma Home Medications ???Medication ???Instructions ???Recorded ???Last Taken ???Type aspirin 81 mg chewable tablet 81 mg PO DAILY heart health 02/09/19 06/27/19 History calcium carbonate-vitamin D3 600 1 ea PO DAILY supplement 02/09/19 06/26/19 History mg-125 unit tablet omeprazole 40 mg capsule,delayed 40 mg PO DAILY reflux 02/09/19 06/27/19 History release pravastatin 40 mg tablet 40 mg PO QHS cholesterol 02/09/19 06/26/19 History latanoprost 0.005 % eye drops 1 drp EACH EYE QHS glucoma 06/27/19 06/26/19 History meclizine 12.5 mg tablet 12.5 mg PO TID PRN PRN Dizziness 06/28/19 Unknown Rx #15 tabs methocarbamol 500 mg tablet 500 mg PO 4X/DAY PRN PRN Muscle 08/26/22 Unknown Rx pain/spasm #40 tabs methocarbamol 500 mg tablet 500 mg PO 4X/DAY PRN Muscle 03/28/24 Unknown Rx pain/spasm #40 tabs Allergy/AdvReac Type Severity Reaction Status Date / Time No Known Allergies Allergy Verified 04/25/24 08:24 Surgical History (Updated 04/25/24 @ 08:19 by Sarah Ma) History of carpal tunnel surgery of right wrist History of carpal tunnel surgery of left wrist History of cholecystectomy History of appendectomy Social History Smoking Status: Never smoker ROS ROS ED ROS Narrative Constitutional: Denies any fevers, chills, headaches, lightness, dizziness Eyes: Denies any changes double vision blurry vision Cardiovascular: Denies chest pain or palpitations Respiratory: Denies shortness of breath Neurological: Denies any numbness, weakness, tingling complains of a shooting pain from her surgical site shooting up her arm to her elbow Musculoskeletal: Complains of left forearm pain as noted above Skin: Denies any new rashes or lesions EXAM Physical Exam Narrative Exam Narrative: General: Patient lying in bed rest comfortably did not appear to be in acute distress Head: Atraumatic, normocephalic Eyes: PERRL bilateral, EOMI bilaterally, no conjunctival injection Neck: Soft, supple, trachea midline Cardiovascular: Regular rate and rhythm no murmurs gallops rubs no Respiratory: Clear to auscultation bilaterally Musculoskeletal: Patient has some tenderness palpation over the dorsal aspect of her left forearm near the scar region no fluctuance noted all of the bony prominences palpated in this extremity and joints taken full range of motion no pain elicited Extremities: +5/5 strength noted in the bilateral lower extremities, radial pulses +2/4 in the bilateral upper extremities Neurological: Patient following commands knew that she was at [facility] year is 2023. Sensation gross intact in median, ulnar and radial nerve distributions bilaterally Skin: Warm, dry, scar is well-healing no concern for infection at this point time no rashes or lesions noted Const Vital Signs: 04/25/24 07:45 Temperature 97.2 F L Temperature Source Temporal Pulse Rate 75 Respiratory Rate 19 H Blood Pressure 150/83 H Blood Pressure Mean 105 Pulse Ox 97 Oxygen Delivery Method Room Air MDM MDM MDM Narrative Medical decision making narrative: Patient is 83-year-old female who presented to the emergency department with chief complaint of left forearm pain. Patient will have a workup performed here on the differential diagnose includes but not limited to cancer, fracture, neuropathic pain. Once workup is obtained reviewed she will be reevaluated. Patient's x-ray of her left forearm was reviewed by myself and by radiology which showed no acute fractures or dislocations no bony lesions. Discussed results with patient and s (more content not included)... Normal [facility] Forearm 2 Viewson 04-25-2024 Forearm 2 Views [facility] Imaging Services [address] [place], [place] [address] Forearm 2 Views MR#: [id number] Acct: [id number] Name: LIBIA NAJERA Rep #: [id number] : 1940 F 83 From: Robert morales MD PCP: Dr. Braulio Whitney MD Status: REG ER Study: Forearm 2 Views Date of Exam: 04/25/24 Exam# [id number] Ordering Dr: Devin Arroyo DO :[id number] STUDY: X-RAY - LEFT RADIUS AND ULNA REASON FOR EXAM: Female, 83 years old. Pain since skin cancer removal in february TECHNIQUE: 2 view(s) of the forearm. COMPARISON: None. FINDINGS: There is no demonstrated soft tissue swelling. Normal visualized radius. Normal visualized ulna. RAD/Forearm 2 Views IMPRESSION: Normal x-ray examination of the radius and ulna. Electronically Signed: Robert Martínez MD at 9:05 EST , CC: Dr. Devin Arroyo DO; Dr. Braulio Whitney MD Special Procedure Tech: Signed Normal [facility] Emergency Department Summary on 03-28-2024 Emergency Department Summary [facility] Medical Records Department [address] [place] [address] Emergency Department Summary 03/28/24 MR#: [id number] Acct: [id number] Name: LIBIA NAJERA Rep #: [id number] : 1940 83 From: Juan Dockery DO PCP: Dr. Braulio Whitney MD Status:REG ER Location: ED HPI History of Present Illness Chief Complaint: Flank Pain Informant: patient and family Narrative Narrative: Patient is an 83-year-old female with past medical history of hypertension hyperlipidemia. She states a few days ago she was using a roller to bulk picker multiple bushels of nuts at home. She states she did not feel any sudden onset of pain but noticed a slight twinge in her left sided back following this. She states as the days have passed she has noticed that the pain has slowly worsened and it does seem to increase when she lies down and rotates or stands up. She denies any loss of bowel or bladder control or IV drug use. She denies any radiation into her legs. She states there is no hematuria or dysuria. However she has been trying [id number] medications with minimal symptom improvement and secondary to this comes in for evaluation [facility] Medical History Hyperlipemia Hypertension Glaucoma Home Medications ???Medication ???Instructions ???Recorded ???Last Taken ???Type aspirin 81 mg chewable tablet 81 mg PO DAILY heart health 02/09/19 06/27/19 History calcium carbonate-vitamin D3 600 1 ea PO DAILY supplement 02/09/19 06/26/19 History mg-125 unit tablet omeprazole 40 mg capsule,delayed 40 mg PO DAILY reflux 02/09/19 06/27/19 History release pravastatin 40 mg tablet 40 mg PO QHS cholesterol 02/09/19 06/26/19 History latanoprost 0.005 % eye drops 1 drp EACH EYE QHS glucoma 06/27/19 06/26/19 History meclizine 12.5 mg tablet 12.5 mg PO TID PRN PRN Dizziness 06/28/19 Unknown Rx #15 tabs methocarbamol 500 mg tablet 500 mg PO 4X/DAY PRN PRN Muscle 08/26/22 Unknown Rx pain/spasm #40 tabs methocarbamol 500 mg tablet 500 mg PO 4X/DAY PRN Muscle 03/28/24 Unknown Rx pain/spasm #40 tabs Allergy/AdvReac Type Severity Reaction Status Date / Time No Known Allergies Allergy Verified 03/28/24 21:55 Surgical History (Updated 08/26/22 @ 05:13 by Shawn Ly) History of cholecystectomy History of appendectomy Social History Smoking Status: Never smoker [facility] ED Constitutional Constitutional ED: Denies chills or fever(s) ENT ENT ED: Denies sore throat Cardiovascular Cardiovascular: Denies chest pain Respiratory/Chest Respiratory/Chest: Denies cough or dyspnea Gastrointestinal Gastrointestinal: Denies abdominal pain, diarrhea, nausea or vomiting Genitourinary Genitourinary ED: Denies dysuria, hematuria or urinary frequency Musculoskeletal Musculoskeletal: Reports back pain Integumentary Denies rash Neurologic Neurologic: Denies headache(s), paresthesias or weakness Hematologic/Lymphatic Hematologic/Lymphatic: Denies easy bleeding or easy bruising EXAM Physical Exam Const Vital Signs: 03/28/24 21:54 Temperature 97.5 F L Temperature Source Temporal Pulse Rate 70 Respiratory Rate 16 Blood Pressure 163/91 H Blood Pressure Mean 115 Pulse Ox 98 Oxygen Delivery Method Room Air Positive well nourished and well developed General Appearance ED: well developed; Negative for pallor HEENT HEENT Narrative: Normocephalic atraumatic Eyes PERRL and EOMs intact bilaterally Neck supple Resp normal respiratory effort and clear to auscultation bilaterally Cardio regular rate and regular rhythm Back/Spine Back/Spine Narrative: No bony deformity or step-off of the thoracic or lumbar spine but there is mild upper lumbar pain with palpation There is also muscle tension/spasm and tenderness to palpation along the left paralumbar muscle belly region which worsens with extension and rotation No saddle anesthesia. Negative straight leg raise. No clonus or Babinski. Patellar reflexes are plus 1 out of 4 bilaterally Extremity normal to inspection Neuro oriented x3, CN's II-XII intact bilaterally and no sensory deficits noted Sensorium / Orientation: alert Motor Exam: strength 5/5 throughout Psych mental status grossly normal Skin no rashes or lesions noted and no wounds Skin Narrative: No overlying soft tissue changes to suggest trauma or infection General Skin Exam: Negative for jaundice or pallor MDM MDM MDM Narrative Medical decision making narrative: Patient arrived to the ER hypertensive but otherwise with stable vitals. She reported gradual increasing left-sided low back pain that was worse with motion that began after repetitive yard/house work. She denied any loss of bowel or bladder control or IV alessandro (more content not included)... Normal [facility] Lumbar Spine 2 or 3 Viewson 03-28-2024 Lumbar Spine 2 or 3 Views [facility] Imaging Services [address] [place], [place] [id number] Lumbar Spine 2 or 3 Views MR#: [id number] Acct: [id number] Name: LIBIA NAJERA Rep #: [id number] : 1940 F 83 From: Remi Wick MD PCP: Dr. Braulio Whitney MD Status: REG ER Study: Lumbar Spine 2 or 3 Views Date of Exam: Exam# [id number] Ordering Dr: Juan Dockery DO :[id number] EXAM: XR LUMBOSACRAL SPINE, 2 OR 3 VIEWS CLINICAL INDICATION: pain TECHNIQUE: Frontal and lateral views of the lumbar spine and sacrum. COMPARISON: No relevant prior studies available. FINDINGS: VERTEBRAE: There is facet hypertrophy at L4 and L5. Preserved vertebral body height. No fracture. No spondylolisthesis. Preservation of the normal lumbar lordosis. DISC SPACES: There is disc space narrowing at L4-5 and L5-S1. GASTROINTESTINAL TRACT: Unremarkable as visualized. Included bowel gas pattern is non-obstructive. RAD/Lumbar Spine 2 or 3 Views IMPRESSION: No acute osseous abnormalities of the lumbar spine. There are degenerative changes with disc space narrowing and facet hypertrophy in the lower lumbar spine. Electronically Signed: Remi Wick MD at 23:08 EDT , CC: Dr. Braulio Whitney MD; Juan Dockery DO Special Procedure Tech: Signed Normal [facility] Urinalysis, Completeon 03-28 EPI,SQUAMOUS 0-5 SEEN Normal 5-10 [facility] Comment on above: Order Comment: CLEAN CATCH Performed By: #### L [id number] #### [facility] [address] [place], [place], [id number] RBC 0-5 SEEN Normal 0-5 [facility] Comment on above: Order Comment: CLEAN CATCH Performed By: #### L [id number] #### [facility] [address] [place], [address] BACTERIA RARE Normal None Seen [facility] Comment on above: Order Comment: CLEAN CATCH Performed By: #### L [id number] #### [facility] [address] [place], [address] EPI,TRANSITION 0-5 SEEN Normal 0-5 [facility] Comment on above: Order Comment: CLEAN CATCH Performed By: #### L [id number] #### [facility] [address] [place], [address] WBC 0-5 SEEN Normal 0-5 [facility] Comment on above: Order Comment: CLEAN CATCH Performed By: #### L [id number] #### [facility] [address] [place], [address] Mucus Ql (Urine sed) 0 SEEN Normal [facility] Comment on above: Order Comment: CLEAN CATCH Performed By: #### L [id number] #### [facility] [address] [place], [address] Emergency Department Summary on 01-21-2024 Emergency Department Summary [facility] Medical Records Department [address] [place] [address] Emergency Department Summary 01/21/24 MR#: [id number] Acct: [id number] Name: LIBIA NAJERA Rep #: [id number] : 1940 83 From: Juan Dockery DO PCP: Dr. Braulio Whitney MD Status:REG ER Location: ED HPI History of Present Illness Chief Complaint: Lower Extremity Injury Informant: patient and spouse/S.O. Narrative Narrative: Patient is 83-year-old female with history of hypertension hyperlipidemia. She states this morning she was walking out to the freezer in the garage and she tripped over the lawnmower which she had parked in front of it and forgot about. She states she landed directly on her left knee and denies striking her head or any loss of consciousness. She also denies any history of bleeding disorder or blood thinner use. She states has been able to ambulate since the fall but there has been swelling bruising and pain and she is concerned for fracture and therefore comes in for evaluation. [facility] Medical History (Updated 01/21/24 @ 16:[address] Juan Dockery DO) Hyperlipemia Hypertension Glaucoma Home Medications ???Medication ???Instructions ???Recorded ???Last Taken ???Type aspirin 81 mg chewable tablet 81 mg PO DAILY heart health 02/09/19 06/27/19 History calcium carbonate-vitamin D3 600 1 ea PO DAILY supplement 02/09/19 06/26/19 History mg-125 unit tablet omeprazole 40 mg capsule,delayed 40 mg PO DAILY reflux 02/09/19 06/27/19 History release pravastatin 40 mg tablet 40 mg PO QHS cholesterol 02/09/19 06/26/19 History latanoprost 0.005 % eye drops 1 drp EACH EYE QHS glucoma 06/27/19 06/26/19 History meclizine 12.5 mg tablet 12.5 mg PO TID PRN PRN Dizziness 06/28/19 Unknown Rx #15 tabs methocarbamol 500 mg tablet 500 mg PO 4X/DAY PRN PRN Muscle 08/26/22 Unknown Rx pain/spasm #40 tabs Allergy/AdvReac Type Severity Reaction Status Date / Time No Known Allergies Allergy Verified 01/21/24 13:40 Surgical History (Updated 08/26/22 @ 05:13 by Shawn Ly) History of cholecystectomy History of appendectomy Social History Smoking Status: Never smoker ROS ROS ED Constitutional Constitutional ED: Denies chills or fever(s) Eyes Eyes: Denies blurry vision or change in vision ENT ENT ED: Denies sore throat Cardiovascular Cardiovascular: Denies chest pain Respiratory/Chest Respiratory/Chest: Denies cough or dyspnea Gastrointestinal Gastrointestinal: Denies abdominal pain, diarrhea, nausea or vomiting Genitourinary Genitourinary ED: Denies dysuria Musculoskeletal Musculoskeletal: Reports other Details: Positive swelling and pain in the left knee ; Denies back pain or neck pain Integumentary Reports other Details: Positive bruising left knee ; Denies rash Neurologic Neurologic: Denies headache(s), paresthesias or weakness Hematologic/Lymphatic Hematologic/Lymphatic: Denies easy bleeding or easy bruising EXAM Physical Exam Const Vital Signs: 01/21/24 13:40 Temperature 96 F L Temperature Source Temporal Pulse Rate 59 L Respiratory Rate 16 Blood Pressure 148/76 H Blood Pressure Mean 100 Pulse Ox 98 Oxygen Delivery Method Room Air Positive well nourished and well developed General Appearance ED: well developed; Negative for pallor HEENT HEENT Narrative: Normocephalic atraumatic Eyes PERRL and EOMs intact bilaterally Neck supple Neck Narrative: No bony deformity or step-off of the cervical spine no midline tenderness to palpation Resp normal respiratory effort and clear to auscultation bilaterally Cardio regular rate and regular rhythm Back/Spine Back/Spine Narrative: No bony deformity or step-off of the thoracic or lumbar spine no midline tenderness to palpation Extremity Extremity Narrative: Left lower extremity is neurovascularly intact. Patient has soft tissue swelling and ecchymosis to the anterior aspect of the left knee. Patellar tendon is intact and knee ligaments are stable. There is no obvious bony deformity or joint effusion. Neuro oriented x3, CN's II-XII intact bilaterally and no sensory deficits noted Sensorium / Orientation: alert Psych mental status grossly normal Skin no rashes or lesions noted Skin Narrative: Soft tissue swelling and ecchymosis to the left knee as documented above General Skin Exam: Negative for jaundice or pallor MDM MDM MDM Narrative Medical decision making narrative: Patient arrived to the ER mildly hypertensive but otherwise with stable vitals. She reported mechanical fall so I felt no need for cardiac or syncope workup. Also she did not strike her head or have loss of conscious nor does she take blood thinners there is no need for head CT. With pain and swelling to the left knee there is concern fo (more content not included)... Normal [facility] Knee 4 or More Viewson 01-20 Knee 4 or More Views [facility] [address] [place], [place] [id number] Knee 4 or More Views MR#: [id number] Acct: [id number] Name: LIBIA NAJERA Rep #: [id number] : 1940 F 83 From: Gabe Vang MD PCP: Dr. Braulio Whitney MD Status: PRE ER Study: Knee 4 or More Views Date of Exam: 01/21/24 Exam# [id number] Ordering Dr: Juan Dockery DO :[id number] STUDY: X-RAY - LEFT KNEE REASON FOR EXAM: Female, 83 years old. FALL TECHNIQUE: 4 view(s) of the knee. COMPARISON: None. FINDINGS: There is demineralization of the visualized distal femur. There is demineralization of the tibia and fibula. Normal proximal tibiofibular articulation. There is no demonstrated fracture. There is mild degenerative arthrosis of the medial femorotibial compartment. Normal lateral femorotibial compartment. There is mild degenerative arthrosis of the patellofemoral articulation. The soft tissue structures are unremarkable. RAD/Knee 4 or More Views IMPRESSION: Degenerative arthrosis. Electronically Signed: Gabe Vang MD at 15:39 EDT , CC: Dr. Braulio Whitney MD; Juan Dockery DO Special Procedure Tech: Signed Normal [facility] HbA1c (Bld)on 09-30-2023 Average glucose Estimated from glycated hemoglobin (Bld) [Mass/Vol] 126 mg/dL [facility] HbA1c (Bld) [Mass fraction] 6.0 % High 4.3 - 5.6 % [facility] MR LUMBAR SP WO CONTRASTon 0 08-01-2023 MR LUMBAR SP WO CONTRAST [place] [address] Patient: LIBIA NAJERA Phone#: : 1940 Age: 83 Gender: F Pt. Type: Out Account: [id number] Location: Ordering: [facility] Exam Date: 08/01/2023/7:51 Family Phys: BRAULIO WHITNEY Charge Code: [id number] Physician: Garrett Order #: [id number] Dose#: PROCEDURE: MRI LUMBAR SPINE WITHOUT CONTRAST COMPARISON: None. INDICATIONS: Lumbar stenosis with radiculopathy TECHNIQUE: A variety of imaging planes and parameters were utilized for visualization of suspected pathology. FINDINGS: PARASPINAL AREA: Normal with no visible mass. BONES: No fracture, pars defect, or osseous lesion. CORD/CAUDA EQUINA: Normal caliber, contour, and signal intensity. LUMBAR DISC LEVELS: L1-L2: Mild annular bulging is present. Bony hypertrophy is present at the articular facettes. There is mild narrowing of the spinal canal. There is mild bilateral foraminal narrowing. L2-L3: Annular disc bulging is present. There is broad-based bulge to the right. Bony hypertrophy is present at the articular facettes. There is moderate to severe narrowing of the spinal canal. There is severe foraminal narrowing bilaterally. L3-L4: Annular disc bulging is present. There is bony hypertrophy at the articular facettes. There is moderate to severe foraminal narrowing. There is moderate to severe bilateral foraminal narrowing. L4-L5: Disc space narrowing is present. There is broad-based disc bulging. Bony hypertrophy is present at the articular facettes. There is minimal anterolisthesis. There is severe bilateral foraminal narrowing. There is mild narrowing of the spinal canal. L5-S1: Disc space narrowing is present. There is broad-based central bulge. There is severe right foraminal narrowing. There is moderate left foraminal narrowing. CONCLUSION: 1. Disc bulging and facet joint hypertrophy is present most marked at the L2-3 and L3-4 levels. There is moderate to severe spinal canal narrowing. There is severe bilateral foraminal narrowing. 2. Broad-based disc bulging is present at the L4-5 level. Severe bilateral foraminal narrowing is present. 3. Severe right foraminal narrowing is present at L5-S1 related to broad-based bulge. Continued Report - Page 2 of 2 Patient: LIBIA NAJERA Phone#: : 1940 Age: 83 Gender: F Pt. Type: Out Account: [id number] Location: Ordering: [facility] Exam Date: 08/01/2023/7:51 Family Phys: BRAULIO WHITNEY Charge Code: [id number] Physician: Garrett Order #: [id number] Dose#: Dictated by: Lupe Delarosa MD on 08/01/2023 at 18:20 Approved by: Lupe Delarosa MD on 08/01/2023 at 18:27 Normal [facility] No Panel Informationon 03-24 [facility] XR Chest PA and Lateralon IMPRESSION: No acute radiographic abnormality. Special Procedure Tech: BOGDAN Transcribe Date/Time: Mar 17 2023 4:19P Dictated by : MELLO RODRIGUEZ MD This examination was interpreted and the report reviewed and electronically signed by: MELLO RODRIGUEZ MD on Mar 17 2023 4:19PM EST DIVISION OF RADIOLOGY * * *Final Report* * * DATE OF EXAM: Mar 17 2023 10:21AM WOX 5291 - XR CHEST 2V FRONTAL/LAT / PROCEDURE REASON: Bronchitis * * * * Physician Interpretation * * * * EXAMINATION: CHEST RADIOGRAPH (2 VIEW FRONTAL & LATERAL) CLINICAL HISTORY: Bronchitis MQ: XC2_6 EXAM DATE/TIME: 03/17/2023 10:21 AM COMPARISON: 01/02/2019 RESULT: Lines, tubes, and devices: None. Lungs and pleura: No consolidation. No lung mass. No persistent pleural effusion. No pneumothorax. Stable elevation of the right hemidiaphragm Cardiomediastinal silhouette: Normal cardiomediastinal silhouette. Bones and soft tissues: Unremarkable. DIVISION OF RADIOLOGY Provider, [facility] - 03/17/2023 * * *Final Report* * * DATE OF EXAM: Mar 17 2023 10:21AM WOX 5291 - XR CHEST 2V FRONTAL/LAT / PROCEDURE REASON: Bronchitis * * * * Physician Interpretation * * * * EXAMINATION: CHEST RADIOGRAPH (2 VIEW FRONTAL & LATERAL) CLINICAL HISTORY: Bronchitis MQ: XC2_6 EXAM DATE/TIME: 03/17/2023 10:21 AM COMPARISON: 01/02/2019 RESULT: Lines, tubes, and devices: None. Lungs and pleura: No consolidation. No lung mass. No persistent pleural effusion. No pneumothorax. Stable elevation of the right hemidiaphragm Cardiomediastinal silhouette: Normal cardiomediastinal silhouette. Bones and soft tissues: Unremarkable. IMPRESSION IMPRESSION: No acute radiographic abnormality. 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 Special Procedure Tech: BOGDAN Transcribe Date/Time: Feb 08 2023 5:47P Dictated by : MANOHAR GANNON MD This examination was interpreted and the report reviewed and electronically signed by: MANOHAR GANNON MD on Feb 08 2023 5:48PM [facility] DIVISION OF RADIOLOGY * * *Final Report* * * DATE OF EXAM: Feb 04 2023 10:12AM WOX 5203 - XR KNEE 4V AP/PA BOTH+LAT/LOLI RT / PROCEDURE REASON: Acute pain of right knee * * * * Physician Interpretation * * * * HISTORY: 82-YEAR-OLD FEMALE WITH Acute pain of right knee . pain for several months in right knee worse in the last month with pain on both sides of knee no inj TECHNIQUE: XR KNEE 4V AP/PA BOTH+LAT/LOLI RT Laterality: RIGHT Number of different views (projections): 4 COMPARISON: None RESULT: Osteophytes around the knee joint and moderate medial compartment joint space narrowing. Patellofemoral osteophytes and mild narrowing of the patellofemoral joint. Large joint effusion. No fracture. DIVISION OF RADIOLOGY Provider, [facility] - 02/08/2023 * * *Final Report* * * DATE OF EXAM: Feb 04 2023 10:12AM WOX 5203 - XR KNEE 4V AP/PA BOTH+LAT/LOLI RT / PROCEDURE REASON: Acute pain of right knee * * * * Physician Interpretation * * * * HISTORY: 82-YEAR-OLD FEMALE WITH Acute pain of right knee . pain for several months in right knee worse in the last month with pain on both sides of knee no inj TECHNIQUE: XR KNEE 4V AP/PA BOTH+LAT/LOLI RT Laterality: RIGHT Number of different views (projections): 4 COMPARISON: None RESULT: Osteophytes around the knee joint and moderate medial compartment joint space narrowing. Patellofemoral osteophytes and mild narrowing of the patellofemoral joint. Large joint effusion. No fracture. 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 Special Procedure Tech: BOGDAN Transcribe Date/Time: Feb 08 2023 5:47P Dictated by : MANOHAR GANNON MD This examination was interpreted and the report reviewed and electronically signed by: MANOHAR GANNON MD on Feb 08 2023 5:48PM EST [facility] XR Knee - right 4 ViewsOrder ed By: Ccf Provider on 02-08-2023 [facility] XR Knee - right 4 Viewson Radiology Study observation (narrative) [facility] Absolute lymphocyte countOrd ered By: Juan Dockery on 08-26-2022 Lymphocytes Auto (Unsp spec) [#/Vol] 2.99 10*3/uL 0.83-4.51 [facility] Basophil percentageOrdered B y: Juan Dockery on 08-26-2022 Basophils/100 WBC (Bld) 0.5 % 0-1 [facility] Chloride [Moles/Vol] 103 mmol/L 98-107 [facility] Eosinophils/100 WBC (Bld) 1.6 % 0-5 [facility] Glucose [Mass/Vol] 106 mg/dL 74-106 [facility] Comment on above: Fasting Glucose resu lt from 100 to 125 mg/dL suggests IMPAIRED HOMEOSTASIS per A.D.A. criteria. Neutrophils (Bld) [#/Vol] 2.6 10*3/uL 2.0-7.7 [facility] Neutrophils/100 WBC (Bld) 42.7 % 47-70 [facility] Potassium [Moles/Vol] 3.4 mmol/L 3.5-5.1 [facility] Sodium [Moles/Vol] 140 mmol/L 136-145 [facility] WBC (Bld) [#/Vol] 6.1 10*3/uL 4.4-11.0 [facility] Blood erythrocytes count (nu mber/volume)Ordered By: Juan Dockery on 08-26-2022 RBC (Bld) [#/Vol] 5.50 10*6/uL 4.2-5.4 [facility] Blood hemoglobin measurement (mass/volume)Ordered By: Juan Dockery on 08-26-2022 Hemoglobin (Bld) [Mass/Vol] 13.9 g/dL 12.0-15.0 [facility] Blood lymphocytes/100 leukoc ytesOrdered By: Juan Dockery on 08-26-2022 Lymphocytes/100 WBC (Bld) 48.7 % 19-41 [facility] Blood monocytes/100 leukocyt esOrdered By: Juan Dockery on 08-26-2022 Monocytes/100 WBC (Bld) 6.2 % 0-10 [facility] Blood platelet mean volumeOr dered By: Juan Dockery on 08-26-2022 Platelet mean volume (Bld) [Entitic vol] 10.2 fL 6.2-12.0 [facility] Determination of erythrocyte mean corpuscular volume (MCV)Ordered By: Juan Dockery on 08-26-2022 MCV (RBC) [Entitic vol] 80.4 fL 81-99 [facility] Hematocrit Auto (Bld) [Volum e fraction]Ordered By: Juan Dockery on 08-26-2022 Hematocrit (Bld) [Volume fraction] 44.2 % 37-47 [facility] Laboratory - Chemistry and C hemistry - challengeOrdered By: Juan Dockery on 08-26-2022 CO2 [Moles/Vol] 29.0 mmol/L 21.0-32.0 [facility] Magnesium [Mass/Vol] 2.0 mg/dL 1.6-2.6 [facility] Urea nitrogen/Creatinine [Mass ratio] 17.8 mg/mg 10-20 [facility] - Hematology and Cell countsOrdered By: Juan Dockery on 08-26-2022 Erythrocyte distribution width (RBC) [Entitic vol] 43.0 fL 35.1-43.9 [facility] Erythrocyte distribution width (RBC) [Ratio] 14.8 % 11.6-14.6 [facility] Immature granulocytes/100 WBC (Bld) 0.300 % 0.0-0.9 [facility] Comment on above: IG% - Immature Granu locytes (promyelocytes, myelocytes and metamyelocytes) > 1% indicates that a LEFT SHIFT is Present. MCH (RBC) [Entitic mass] 25.3 pg 27.0-32.0 [facility] Nucleated RBC/100 WBC (Bld) [Ratio] 0 % 0-5 [facility] MCHC Auto (RBC) [Mass/Vol]Or dered By: Juan Dockery on 08-26-2022 MCHC (RBC) [Mass/Vol] 31.4 g/dL 32-36 [facility] No Panel InformationOrdered By: Juan Dockery on 08-26-2022 Estimated Creatinine Clearance Calc 40.20 ml/min [facility] Estimated GFR (MDRD) Amer 67 mL/min >60 [facility] Comment on above: GFR Calc Estimated GFR (MDRD) Non-Af Amer 56 mL/min >60 [facility] Comment on above: Non- GFR Calc Troponin I High Sensitivity 8 pg/mL 3.0-54.0 [facility] Comment on above: Please Note: New Shannan t Units and Gender Specific Reference Ranges. For more information see Policy Stat Procedure [place] High Sensitivity Troponin (TNIH) and attachments. Platelets bldOrdered By: Lawrence Dockery on 08-26-2022 Platelets (Bld) [#/Vol] 270 10*3/uL 150-450 [facility] Serum or plasma calcium magdalena urement (mass/volume)Ordered By: Juan Dockery on 08-26-2022 Calcium [Mass/Vol] 9.6 mg/dL 8.5-10.1 [facility] Serum or plasma creatinine m easurement (mass/volume)Ordered By: Juna Dockery on 08-26-2022 Creatinine [Mass/Vol] 1.01 mg/dL 0.55-1.02 [facility] Comment on above: The validity of the calculated GFR & GFRAA in patients over 70 years has not been determined. Clinical correlation is essential. Serum or plasma urea nitroge n measurement (mass/volume)Ordered By: Juan Dockery on 08-26-2022 Urea nitrogen [Mass/Vol] 18 mg/dL 7-18 [facility] Thin prep Papanicolaou smear with manual screeningOrdered By: Juan Dockery on 08-26-2022 Thin prep Papanicolaou smear with manual screening 8 5-15 [facility] ANES POSTPROC EVALon 022 ANES POSTPROC EVAL HNO ID: [id number] Author: Lillie Wilhelm MD Service: Anesthesiology Author Type: Anesthesiologist Type: Anesthesia Postprocedure Evaluation Filed: 01/29/2022 6:16 PM Note Text: POST ANESTHESIA EVALUATION NOTE : 1940 Procedure Summary Date: 01/29/22 Room / Location: [place] OR02 [place] Anesthesia Start: 161 Anesthesia Stop: 172 Procedures: DECOMPRESSION NERVE MEDIAN CARPAL TUNNEL- Revision with nerve wrap (Left: Wrist) EXCISION BENIGN LESION HANDS 0.6 TO 1.0 CM (Left: Hand) Diagnosis: Carpal tunnel syndrome on left Skin lesion of hand Surgeons: Gabe Elizabeth MD Responsible Provider: Lillie Wilhelm MD Anesthesia Type: MAC ASA Status: 3 Anesthesia Type: MAC Last Vitals Vitals Value Taken Time BP 165/76 01/29/221744 Temp 36.1 ?C (97 ?F) 01/29/221718 Pulse 58 01/29/221744 Resp 16 01/29/221744 SpO2 96 % 01/29/221744 Post Anesthesia Patient Status Patient Evaluation: PACU. PACU/ICU Patient Condition: stable. Anticipated Disposition: phase 2 then home. Neurological Status: aware and responsive. Pulmonary Status: breathing comfortably on room air Airway Control: returned to baseline unsupported. Cardiovascular Status: stable. Pain Management: clinically adequate - multimodal analgesia pain management approach Postoperative Hydration: acceptable. Intraoperative Events: no significant anesthesia events Post Operative Nausea/Vomiting Status: no significant post operative nausea or vomiting Anesthetic Observations: Recommendation: continue current plan of care. Anesthesia Observations No Documentation SIGNATURE: Lillie Wilhelm MD PATIENT NAME: Libia Najera DATE: January 29, 2022 TIME: 6:16 PM CSN: [id number] [facility] ANES PRE-OPon 01-29-2022 ANES PRE-OP HNO ID: [id number] Author: Lillie Wilhelm MD Service: Anesthesiology Author Type: Anesthesiologist Type: Anesthesia Preprocedure Evaluation Filed: 01/29/2022 2:52 PM Note Text: ANESTHESIOLOGY DAY OF SURGERY NOTE : 1940 Procedure Information Date/Time: 01/29/22 1515 Procedures: DECOMPRESSION NERVE MEDIAN CARPAL TUNNEL- Revision with nerve wrap (Left: Wrist) EXCISION BENIGN LESION HANDS 0.6 TO 1.0 CM (Left: Hand) Location: [place] OR02 [place] Surgeons: Gabe Elizabeth MD Estimated body mass index is 30.34 kg/m? as calculated from the following: Height as of 01/27/22: 167.6 cm (5' 6). Weight as of 01/27/22: 85.3 kg (188 lb). Most recent hematocrit and potassium results: Hematocrit 44.3 05/18/2021 Potassium 3.9 05/18/2021 Relevant Problems CARDIO (+) Essential hypertension, benign GI (+) Esophageal reflux -RENAL (+) Stage 3a chronic kidney disease (HCC) I - PHYSICAL EVALUATION AIRWAY Patient intubated: No. Tracheostomy tube not present Mallampati: II. TM distance: >3 FB. Neck ROM: full ROM without neurological symptoms. Mouth opening: adequate. Short neck: no. Thick neck: no DENTAL Dental findings: teeth intact. Additional exam findings: no II - ANESTHESIA PLAN ASA Score: 3 Anesthetic Plan: MAC The patient is not a current smoker. Monitoring plan: standard ASA. Postoperative analgesic plan: multimodal analgesia. Patient / Surrogate agrees to blood products: blood products not planned DNR status not reviewed with patient and/or family prior to surgery. Significant changes in the patient condition since the History and Physical, not otherwise documented in primary service progress note: no. Potential Anesthesia issues that may suggest increased risk of complications or contraindication to planned procedure: none. Vitals Value Taken Time BP 178/81 01/29/22 1331 Pulse Resp 18 01/29/22 1331 Temp 36.4 ?C (97.5 ?F) 01/29/22 1331 SpO2 97 % 01/29/22 1331 Facility-Administered Medications as of 01/29/2022 Medication Dose Route Frequency - lidocaine 10 mg/mL (1 %) 1-2 mg injection (XYLOCAINE) 0.1-0.2 mL INTRADERMAL PRN - lactated ringers iv infusion 5-30 mL/hr INTRAVENOUS CONTINUOUS - ceFAZolin iv piggyback 2 g in D5W (iso-osmotic) 100 mL (ANCEF) 2 g INTRAVENOUS Pre-Op Once - promethazine 12.5 mg tab(s) (PHENERGAN) 12.5 mg ORAL Pre-Op Once - lactated ringers iv infusion 30 mL/hr INTRAVENOUS CONTINUOUS - acetaminophen 1,000 mg tab(s) (TYLENOL) 1,000 mg ORAL Pre-Op Once Outpatient Medications as of 01/29/2022 Medication Sig - pravastatin (PRAVACHOL) 40 mg tablet Take 1 tablet by mouth once daily. - omeprazole (PRILOSEC) 40 mg capsule Take 1 capsule by mouth once daily. (Patient taking differently: Take 40 mg by mouth as needed.) - lisinopril-hydroCHLOROthiazi de (PRINZIDE,ZESTORETIC) 10-12.5 mg per tablet Take 1 tablet by mouth every morning. - latanoprost (XALATAN) 0.005 % ophthalmic solution Use 1 Drop in both eyes daily at bedtime. TO AFFECTED EYE(S) - Calcium Carbonate-Vitamin D2 600 mg calcium- 200 unit tab Take 1 tablet by mouth once daily. - Blood Pressure Cuff - Home Use BLOOD PRESSURE CUFF FOR HOME USE. DX: LABILE BLOOD PRESSURE I have interviewed and examined the patient. I have reviewed the medical record and/or the pre-anesthesia evaluation, pertinent labs, and test results. This contains updated information obtained within 48 hours of Surgery/Procedure. SIGNATURE: Lillie Wilhelm MD PATIENT NAME: Libia Najera DATE: January 29, 2022 TIME: 2:52 PM CSN: [id number] [facility] OPERATIVE NOon 01-29-2022 OPERATIVE NO HNO ID: [id number] Author: Gabe Elizabeth MD Service: Orthopaedic Surgery Author Type: Physician Type: Operative Report Filed: 02/03/2022 7:39 AM Note Text: OPERATIVE/PROCEDURE REPORT LOG ID: [id number] SURGERY/PROCEDURE DATE: 01/29/2022 INCISION/PROCEDURE START TIME: 4:27 PM INCISION CLOSE/PROCEDURE END TIME: 5:11 PM SURGEON(S)/PROCEDURALIST(S) AND METAL WELDER(S): Surgeon(s) and Role: * Gabe Elizabeth MD - Primary Physician Financial Rep: Deepika James PA-C SURGERY/PROCEDURE(S): OPERATION: Left revision carpal tunnel release, with axogard nerve wrap. ANESTHESIA: MAC with local. PREOPERATIVE DIAGNOSIS: Left recurrent carpal tunnel syndrome. POSTOPERATIVE DIAGNOSIS: Left recurrent carpal tunnel syndrome. OPERATIVE INDICATIONS: This is a pleasant 81 year old female who previously had carpal tunnel release many years ago and presented with worsening pain, numbness, and tingling on the left. We discussed getting new electrodiagnostics but she deferred. She also had a skin lesion on the dorsum of the hand that was suspicious for skin cancer. She exhausted conservative management and in the office, we discussed the risks, benefits, alternatives, and potential complications involving carpal tunnel release and skin lesion excision and she wished to pursue surgical intervention. OPERATIVE FINDINGS: Consistent with postoperative diagnosis. OPERATIVE PROCEDURE: On January, the patient was clearly identified in the preoperative area and marked accordingly on the left palm and dorsum of her hand by myself. She was taken to the operative suite and placed in the supine position with an armboard on the Right. She received 2g of Ancef in the IV within 1 hour of incision or tourniquet. Anesthesia assumed care of the head and neck for the remainder of the case and began a MAC anesthetic. All other bony landmarks were appropriately padded in standard fashion. The upper extremity had a well-padded upper brachium tourniquet applied with Webril padding and set at 250 mmHg, but not yet inflated. The arm was then sterilely prepped and draped in standard fashion. An appropriate time-out was conducted and all in the room were in agreement, signed consent form was on the chart. The upper extremity was exsanguinated with an Esmarch bandage and the tourniquet was applied at 250 mmHg. Local anesthetic was provided at the palm and wrist with 1% lidocaine with epi 1:100,000 for total of 10 mL, 4 cc at the dorsum. First, an elliptical incision was made longitudinally around the skin lesion dorsally leaving appropriate skin edges. I then dissected off from the underlying fat layer and I placed a long stitch proximally and a short stitch radially. This was sent for final pathology. Next, A longitudinal incision was made with in line with the third web space in her old incision from Childress's cardinal line to a few centimeters proximal to the wrist crease with a Eris's z across the wrist crease. I used Kim Rakes to retract the soft tissues. Bipolar electrocautery was used for hemostasis. I bluntly dissected down with Littler scissors to distal edge of the transverse carpal ligament until a flash of fat was noted. I directly divided distal edge of the transverse carpal ligament with a #15 blade where there appeared to be [place] tissue. Attention was then focused on the proximal portion and I used Littler scissors to bluntly dissect off the volar surface of the transverse carpal ligament proximately and divided the edge as well as the antebrachial fascia. Then using gentle dissection with Littler's and sharp knife dissection when appropriate, the median nerve was freed from it's scarred tissue bed. Mid palm, the nerve was flattened throughout its length, but relatively healthy-appearing with good vasculature. A major synovectomy was preformed to free the bulky soft tissue from the surrounding tendons and adherent median nerve. I the selected a 40 x 10mm Axogaurd nerve wrap and secured it proximally and distally with a 7-0 prolene to secure it very loosely. At this point, the tourniquet was taken down and hemostasis was observed. The wounds was copiously irrigated with normal saline and I closed with 3-0 nylons in horizontal mattress and simple fashion at each location. Xeroform gauze, bulky sterile 4 x 4 gauze, Webril padding, and a Bias roll was used for final obandage. There were no complications during the procedure. The patient was safely awoken and transferred to the Postanesthetic Care Unit in stable condition. ESTIMATED BLOOD LOSS: 0 ml SPECIMENS: Dorsal skin lesion sent IMPLANTABLE DEVICES: Axogen nerve wrap 40 x 10mm DRAINS: None COMPLICATIONS: None PARTICIPATION IN SURGERY/PROCEDURE: I/primary surgeon/proceduralist performed the procedure with assistance. No qualified resident/fellow was available. assistant associate full professor was necessary for safe patient positioning, sterile (more content not included)... Normal [facility] SURGICAL PATHOLOGYon CASE REPORT [facility] Comment on above: Order Comment: Speci men Type: TISSUE SPECIMEN Ordering Facility: [facility] Address: [address] [place] [address] Result Comment: Surg [facility] Pathology Report Case: [id number] Authorizing Provider: Gabe Elizabeth MD Collected: 01/29/2022 04:52 PM Ordering Location: [facility] Surgery Received: 02/01/2022 08:26 AM Pathologist: Virginia Coats MD Specimen: SKIN EXCISION, left hand skin lesion, long proximal, short radial Performed By: #### S #### [facility] CLIA [id number] [address] [place] [address] FINAL DIAGNOSIS Normal [facility] Comment on above: Order Comment: Speci men Type: TISSUE SPECIMEN Ordering Facility: [facility] Address: [address] [place] [address] Result Comment: William rose, left hand, excision: - Invasive well-differentiated squamous cell carcinoma, completely excised. - Diffuse background actinic keratosis. Performed By: #### S #### [facility] CLIA [id number] [address] [place] [address] OF [facility] Normal [facility] Comment on above: Order Comment: Speci men Type: TISSUE SPECIMEN Ordering Facility: [facility] Address: [address] [place] [address] Result Comment: Diag nostic interpretation performed at [facility], [address] [place] [address] CLIA# [id number] Shirt Sorter: Dejon Beal M.D. Performed By: #### S #### [facility] CLIA [id number] [address] [place] [address] GROSS DESCRIPTION Normal [facility] Comment on above: Order Comment: Speci men Type: TISSUE SPECIMEN Ordering Facility: [facility] Address: [address] [place] [address] Result Comment: William ROSE EXCISION Received in formalin is an oriented elliptical segment of skin and subcutaneous tissue measuring 4.4 x 1.8 x 0.9 cm. The long suture pierson the proximal tip and the short suture pierson the radial margin. The skin surface demonstrates a circular white-hinkle to brown elevated and crusted area measuring 1.2 x 1.2 cm, and extends to 0.3 cm of the ulnar margin. The ulnar margin is inked orange, the radial margin is inked blue, and the deep and lateral margin is inked black. Specimen is sectioned and submitted from the proximal tip to the distal tip. Totally submitted in formalin as follows: A1 proximal tip, A2 distal tip, A3-A8 remainder of tissue. CL February 01, 2022 2:03 PM Gross examination performed at [facility], [address] [place] [id number] Performed By: #### S #### [facility] CLIA [id number] [address] [facility] [place] [address] [place] XR Tibia and Fibula - right AP and Lateralon 09-04-2020 IMPRESSION: 1. No radiographic evidence of acute osseous injury. 2. Mild knee osteoarthritis. 3. Atherosclerotic disease. Special Procedure Tech: BOGDAN Transcribe Date/Time: Sep 04 2020 8:43A Dictated by : MORALES SANDS MD This examination was interpreted and the report reviewed and electronically signed by: MORALES SANDS MD on Sep 04 2020 8:45AM [facility] DIVISION OF RADIOLOGY * * *Final Report* * * DATE OF EXAM: Sep 04 2020 8:41AM WOX [id number] - XR TIBIA FIBULA 2V AP/LAT RT / PROCEDURE REASON: Pain of right lower extremity * * * * Physician Interpretation * * * * CLINICAL INDICATION: Lower extremity pain TECHNIQUE: Frontal and lateral radiographs of the right tibia/fibula COMPARISON: None FINDINGS: No fracture or dislocation identified. Mild medial knee compartmental joint space narrowing with miniscule tricompartmental osteophyte production. Atherosclerotic calcification of the vasculature. DIVISION OF RADIOLOGY Provider, [facility] - 09/04/2020 * * *Final Report* * * DATE OF EXAM: Sep 04 2020 8:41AM WOX [id number] - XR TIBIA FIBULA 2V AP/LAT RT / PROCEDURE REASON: Pain of right lower extremity * * * * Physician Interpretation * * * * CLINICAL INDICATION: Lower extremity pain TECHNIQUE: Frontal and lateral radiographs of the right tibia/fibula COMPARISON: None FINDINGS: No fracture or dislocation identified. Mild medial knee compartmental joint space narrowing with miniscule tricompartmental osteophyte production. Atherosclerotic calcification of the vasculature. IMPRESSION IMPRESSION: 1. No radiographic evidence of acute osseous injury. 2. Mild knee osteoarthritis. 3. Atherosclerotic disease. Special Procedure Tech: BOGDAN Transcribe Date/Time: Sep 04 2020 8:43A Dictated by : MORALES SANDS MD This examination was interpreted and the report reviewed and electronically signed by: MORALES SANDS MD on Sep 04 2020 8:45AM EST [facility] Radiology Study observation (narrative) [facility] XR Tibia and Fibula - right AP and LateralOrdered By: [facility] Provider on 09-04-2020 [facility] Vital Signs Date Time Vital Sign Value Performing Clinician Facility 01-02-2025 08:04-0400 Body mass index (BMI) [Ratio] 31.15 kg/m2 Nina Marlye APRN.MEASUREMENT ADVISOR Work Phone: [facility] 01-02-2025 08:04-0400 Body weight 87.54 kg Nina Marley APRN.MEASUREMENT ADVISOR Work Phone: [facility] 01-02-2025 08:04-0400 Diastolic blood pressure 70 mm[Hg] Nina Marley APRN.MEASUREMENT ADVISOR Work Phone: [facility] 01-02-2025 08:04-0400 Heart rate 62 /min Nina Marley APRN.MEASUREMENT ADVISOR Work Phone: [facility] 01-02-2025 08:04-0400 Respiratory rate 16 /min Nina Marley APRN.MEASUREMENT ADVISOR Work Phone: [facility] 01-02-2025 08:04-0400 SaO2% (BldA) [Mass fraction] 96 % Nina Marley APRN.MEASUREMENT ADVISOR Work Phone: [facility] 01-02-2025 08:04-0400 Systolic blood pressure 124 mm[Hg] Nina Marley APRN.MEASUREMENT ADVISOR Work Phone: [facility] 11-30-2024 16:18-0400 Body mass index (BMI) [Ratio] 32.12 kg/m2 Marii Red APRN.MEASUREMENT ADVISOR Work Phone: [facility] 11-30-2024 16:18-0400 Body weight 90.27 kg Marii Red APRN.MEASUREMENT ADVISOR Work Phone: [facility] 11-30-2024 16:18-0400 Diastolic blood pressure 64 mm[Hg] Marii Red ENROLLMENT ELIGIBILITY REPRESENTATIVE.MEASUREMENT ADVISOR Work Phone: [facility] 11-30-2024 16:18-0400 Heart rate 64 /min Marii Red ENROLLMENT ELIGIBILITY REPRESENTATIVE.MEASUREMENT ADVISOR Work Phone: [facility] 11-30-2024 16:18-0400 SaO2% (BldA) [Mass fraction] 95 % Marii Red ENROLLMENT ELIGIBILITY REPRESENTATIVE.MEASUREMENT ADVISOR Work Phone: [facility] 11-30-2024 16:18-0400 Systolic blood pressure 128 mm[Hg] Marii Red ENROLLMENT ELIGIBILITY REPRESENTATIVE.MEASUREMENT ADVISOR Work Phone: [facility] 11-30-2024 07:11-0400 Body mass index (BMI) [Ratio] 32.24 kg/m2 Jamey Dye MD Work Phone: [facility] 11-30-2024 07:11-0400 Body temperature 97.7 [degF] Jamey Dye MD Work Phone: [facility] 11-30-2024 07:11-0400 Body weight 90.6 kg Jamey Dye MD Work Phone: [facility] 11-30-2024 07:11-0400 Diastolic blood pressure 70 mm[Hg] Jamey Dye MD Work Phone: [facility] 11-30-2024 07:11-0400 Heart rate 81 /min Jamey Dye MD Work Phone: [facility] 11-30-2024 07:11-0400 Respiratory rate 20 /min Jamey Dye MD Work Phone: [facility] 11-30-2024 07:11-0400 SaO2% (BldA) [Mass fraction] 95 % Jamey Dye MD Work Phone: [facility] 11-30-2024 07:11-0400 Systolic blood pressure 130 mm[Hg] Jamey Dye MD Work Phone: [facility] 11-13-2024 10:00-0400 Diastolic blood pressure 85 mm[Hg] Michael Golias PT Work Phone: [facility] 11-13-2024 10:00-0400 Heart rate 62 /min Michael Golias PT Work Phone: [facility] 11-13-2024 10:00-0400 Systolic blood pressure 137 mm[Hg] Michael Golias PT Work Phone: [facility] 11-02-2024 09:49-0400 Diastolic blood pressure 70 mm[Hg] Zahida Ban ENROLLMENT ELIGIBILITY REPRESENTATIVE.MEASUREMENT ADVISOR Work Phone: [facility] 11-02-2024 09:49-0400 Heart rate 49 /min Zahida Ban ENROLLMENT ELIGIBILITY REPRESENTATIVE.MEASUREMENT ADVISOR Work Phone: [facility] 11-02-2024 09:49-0400 Respiratory rate 16 /min Zahida Ban ENROLLMENT ELIGIBILITY REPRESENTATIVE.MEASUREMENT ADVISOR Work Phone: [facility] 11-02-2024 09:49-0400 SaO2% (BldA) [Mass fraction] 95 % Zahida Ban ENROLLMENT ELIGIBILITY REPRESENTATIVE.MEASUREMENT ADVISOR Work Phone: [facility] 11-02-2024 09:49-0400 Systolic blood pressure 114 mm[Hg] Zahida Ban ENROLLMENT ELIGIBILITY REPRESENTATIVE.MEASUREMENT ADVISOR Work Phone: [facility] 11-02-2024 08:00-0400 Body mass index (BMI) [Ratio] 31.31 kg/m2 Grace Briceño ENROLLMENT ELIGIBILITY REPRESENTATIVE.MEASUREMENT ADVISOR Work Phone: [facility] 11-02-2024 08:00-0400 Body temperature 98.01 [degF] Grace Briceño ENROLLMENT ELIGIBILITY REPRESENTATIVE.MEASUREMENT ADVISOR Work Phone: [facility] 11-02-2024 08:00-0400 Body weight 88 kg Grace Briceño ENROLLMENT ELIGIBILITY REPRESENTATIVE.MEASUREMENT ADVISOR Work Phone: [facility] 11-02-2024 08:00-0400 Diastolic blood pressure 81 mm[Hg] Grace Bales-Nestor ENROLLMENT ELIGIBILITY REPRESENTATIVE.MEASUREMENT ADVISOR Work Phone: [facility] 11-02-2024 08:00-0400 Heart rate 54 /min Grace Briceño ENROLLMENT ELIGIBILITY REPRESENTATIVE.MEASUREMENT ADVISOR Work Phone: [facility] 11-02-2024 08:00-0400 Respiratory rate 20 /min Grace Praisler-Wood ENROLLMENT ELIGIBILITY REPRESENTATIVE.MEASUREMENT ADVISOR Work Phone: [facility] 11-02-2024 08:00-0400 SaO2% (BldA) [Mass fraction] 97 % Grace Praisler-Wood ENROLLMENT ELIGIBILITY REPRESENTATIVE.MEASUREMENT ADVISOR Work Phone: [facility] 11-02-2024 08:00-0400 Systolic blood pressure 104 mm[Hg] Grace Praisler-Wood ENROLLMENT ELIGIBILITY REPRESENTATIVE.MEASUREMENT ADVISOR Work Phone: [facility] 10-24-2024 12:18-0400 Diastolic blood pressure 75 mm[Hg] Rafy Raza MD Work Phone: [facility] 10-24-2024 12:18-0400 Heart rate 58 /min Rafy Raza MD Work Phone: [facility] 10-24-2024 12:18-0400 Respiratory rate 14 /min Rafy Raza MD Work Phone: [facility] 10-24-2024 12:18-0400 SaO2% (BldA) [Mass fraction] 97 % Rafy Raza MD Work Phone: [facility] 10-24-2024 12:18-0400 Systolic blood pressure 133 mm[Hg] Rafy Raza MD Work Phone: [facility] 10-24-2024 10:24-0400 Body mass index (BMI) [Ratio] 31.49 kg/m2 Rafy Raza MD Work Phone: [facility] 10-24-2024 10:24-0400 Body temperature 97.9 [degF] Rafy Raza MD Work Phone: [facility] 10-24-2024 10:24-0400 Body weight 88.5 kg Rafy Raza MD Work Phone: [facility] 10-03-2024 09:36-0400 Body mass index (BMI) [Ratio] 31.47 kg/m2 Braulio Whitney MD Work Phone: [facility] 10-03-2024 09:36-0400 Body weight 88.45 kg Braulio Whitney MD Work Phone: [facility] 10-03-2024 09:36-0400 Diastolic blood pressure 64 mm[Hg] Braulio Whitney MD Work Phone: [facility] 10-03-2024 09:36-0400 Heart rate 53 /min Braulio Whitney MD Work Phone: [facility] 10-03-2024 09:36-0400 SaO2% (BldA) [Mass fraction] 96 % Braulio Whitney MD Work Phone: [facility] 10-03-2024 09:36-0400 Systolic blood pressure 124 mm[Hg] Braulio Whitney MD Work Phone: [facility] 09-06-2024 13:50-0400 Body mass index (BMI) [Ratio] 31.67 kg/m2 Laurie Genaro ENROLLMENT ELIGIBILITY REPRESENTATIVE.MEASUREMENT ADVISOR Work Phone: [facility] 09-06-2024 13:50-0400 Body temperature 98.4 [degF] Laurie Genaro ENROLLMENT ELIGIBILITY REPRESENTATIVE.MEASUREMENT ADVISOR Work Phone: [facility] 09-06-2024 13:50-0400 Body weight 89 kg Laurie Genaro ENROLLMENT ELIGIBILITY REPRESENTATIVE.MEASUREMENT ADVISOR Work Phone: [facility] 09-06-2024 13:50-0400 Diastolic blood pressure 76 mm[Hg] Laurie Genaro ENROLLMENT ELIGIBILITY REPRESENTATIVE.MEASUREMENT ADVISOR Work Phone: [facility] 09-06-2024 13:50-0400 Heart rate 77 /min Laurie Genaro ENROLLMENT ELIGIBILITY REPRESENTATIVE.MEASUREMENT ADVISOR Work Phone: [facility] 09-06-2024 13:50-0400 Respiratory rate 17 /min Laurie Genaro ENROLLMENT ELIGIBILITY REPRESENTATIVE.MEASUREMENT ADVISOR Work Phone: [facility] 09-06-2024 13:50-0400 SaO2% (BldA) [Mass fraction] 97 % Laurie Genaro ENROLLMENT ELIGIBILITY REPRESENTATIVE.MEASUREMENT ADVISOR Work Phone: [facility] 09-06-2024 13:50-0400 Systolic blood pressure 152 mm[Hg] Laurie Wilson ENROLLMENT ELIGIBILITY REPRESENTATIVE.MEASUREMENT ADVISOR Work Phone: [facility] 07-30-2024 08:44-0500 Body mass index (BMI) [Ratio] 31.47 kg/m2 Nina Marley ENROLLMENT ELIGIBILITY REPRESENTATIVE.MEASUREMENT ADVISOR Work Phone: [facility] 07-30-2024 08:44-0500 Body weight 88.45 kg Nina Marley ENROLLMENT ELIGIBILITY REPRESENTATIVE.MEASUREMENT ADVISOR Work Phone: [facility] 07-30-2024 08:44-0500 Diastolic blood pressure 80 mm[Hg] Nina Aliceaagen ENROLLMENT ELIGIBILITY REPRESENTATIVE.MEASUREMENT ADVISOR Work Phone: [facility] 07-30-2024 08:44-0500 Heart rate 82 /min Nina Marley ENROLLMENT ELIGIBILITY REPRESENTATIVE.MEASUREMENT ADVISOR Work Phone: [facility] 07-30-2024 08:44-0500 Respiratory rate 16 /min Nina Marley ENROLLMENT ELIGIBILITY REPRESENTATIVE.MEASUREMENT ADVISOR Work Phone: [facility] 07-30-2024 08:44-0500 SaO2% (BldA) [Mass fraction] 96 % Nina Marley ENROLLMENT ELIGIBILITY REPRESENTATIVE.MEASUREMENT ADVISOR Work Phone: [facility] 07-30-2024 08:44-0500 Systolic blood pressure 138 mm[Hg] Nina Marley ENROLLMENT ELIGIBILITY REPRESENTATIVE.MEASUREMENT ADVISOR Work Phone: [facility] 04-04-2024 09:33-0400 Body mass index (BMI) [Ratio] 30.32 kg/m2 Braulio Whitney MD Work Phone: [facility] 04-04-2024 09:33-0400 Body weight 85.2 kg Braulio Whitney MD Work Phone: [facility] 04-04-2024 09:33-0400 Diastolic blood pressure 62 mm[Hg] Braulio Whitney MD Work Phone: [facility] 04-04-2024 09:33-0400 Heart rate 72 /min Braulio Whitney MD Work Phone: [facility] 04-04-2024 09:33-0400 SaO2% (BldA) [Mass fraction] 97 % Braulio Whitney MD Work Phone: [facility] 04-04-2024 09:33-0400 Systolic blood pressure 112 mm[Hg] Braulio Whitney MD Work Phone: [facility] 01-28-2024 08:25-0400 Body mass index (BMI) [Ratio] 30.83 kg/m2 Braulio Whitney MD Work Phone: [facility] 01-28-2024 08:25-0400 Body weight 86.64 kg Braulio Whitney MD Work Phone: [facility] 01-28-2024 08:25-0400 Diastolic blood pressure 68 mm[Hg] Braulio Whitney MD Work Phone: [facility] 01-28-2024 08:25-0400 Heart rate 54 /min Braulio Whitney MD Work Phone: [facility] 01-28-2024 08:25-0400 SaO2% (BldA) [Mass fraction] 96 % Braulio Whitney MD Work Phone: [facility] 01-28-2024 08:25-0400 Systolic blood pressure 122 mm[Hg] Braulio Whitney MD Work Phone: [facility] 01-21-2024 12:37-0400 Body mass index (BMI) [Ratio] 30.71 kg/m2 Jamey Dye MD Work Phone: [facility] 01-21-2024 12:37-0400 Body temperature 97.7 [degF] Jamey Dye MD Work Phone: [facility] 01-21-2024 12:37-0400 Body weight 86.3 kg Jamey Dye MD Work Phone: [facility] 01-21-2024 12:37-0400 Diastolic blood pressure 84 mm[Hg] Jamey Dye MD Work Phone: [facility] 01-21-2024 12:37-0400 Heart rate 58 /min Jamey Dye MD Work Phone: [facility] 01-21-2024 12:37-0400 Respiratory rate 16 /min Jamey Dye MD Work Phone: [facility] 01-21-2024 12:37-0400 SaO2% (BldA) [Mass fraction] 97 % Jamey Dye MD Work Phone: [facility] 01-21-2024 12:37-0400 Systolic blood pressure 136 mm[Hg] Jamey Dye MD Work Phone: [facility] 09-30-2023 10:07-0400 Body height 167.6 cm Braulio Whitney MD Work Phone: [facility] 09-30-2023 10:07-0400 Body weight 86.64 kg Braulio Whitney MD Work Phone: [facility] 09-30-2023 10:07-0400 Diastolic blood pressure 60 mm[Hg] Braulio Whitney MD Work Phone: [facility] 09-30-2023 10:07-0400 Heart rate 60 /min Braulio Whitney MD Work Phone: [facility] 09-30-2023 10:07-0400 SaO2% (BldA) [Mass fraction] 97 % Braulio Whitney MD Work Phone: [facility] 09-30-2023 10:07-0400 Systolic blood pressure 120 mm[Hg] Braulio Whitney MD Work Phone: [facility] 03-31-2023 08:47-0400 Body weight 84.37 kg NA Mauricio PA-C Work Phone: [facility] 03-31-2023 08:47-0400 Diastolic blood pressure 60 mm[Hg] NA Mauricio PA-C Work Phone: [facility] 03-31-2023 08:47-0400 Heart rate 60 /min NA Mauricio PA-C Work Phone: [facility] 03-31-2023 08:47-0400 Respiratory rate 16 /min NA Mauricio PA-C Work Phone: [facility] 03-31-2023 08:47-0400 SaO2% (BldA) [Mass fraction] 97 % NA Mauricio PA-C Work Phone: [facility] 03-31-2023 08:47-0400 Systolic blood pressure 110 mm[Hg] NA Mauricio PA-C Work Phone: [facility] 02-04-2023 09:16-0400 Body weight 86.64 kg Braulio Whitney MD Work Phone: [facility] 02-04-2023 09:16-0400 Diastolic blood pressure 71 mm[Hg] Braulio Whitney MD Work Phone: [facility] 02-04-2023 09:16-0400 Heart rate 55 /min Braulio Whitney MD Work Phone: [facility] 02-04-2023 09:16-0400 SaO2% (BldA) [Mass fraction] 97 % Braulio Whitney MD Work Phone: [facility] 02-04-2023 09:16-0400 Systolic blood pressure 109 mm[Hg] Braulio Whitney MD Work Phone: [facility] 09-10-2022 08:53-0400 Body height 167.6 cm Braulio Whitney MD Work Phone: [facility] 09-10-2022 08:53-0400 Body weight 88.81 kg Braulio Whitney MD Work Phone: [facility] 09-10-2022 08:53-0400 Diastolic blood pressure 62 mm[Hg] Braulio Whitney MD Work Phone: [facility] 09-10-2022 08:53-0400 Heart rate 66 /min Braulio Whitney MD Work Phone: [facility] 09-10-2022 08:53-0400 SaO2% (BldA) [Mass fraction] 97 % Braulio Whitney MD Work Phone: [facility] 09-10-2022 08:53-0400 Systolic blood pressure 118 mm[Hg] Brauilo Whitney MD Work Phone: [facility] 08-26-2022 06:55-0500 Diastolic blood pressure 78 mm[Hg] [facility] 08-26-2022 06:55-0500 Heart rate 64 /min [facility] 08-26-2022 06:55-0500 Respiratory rate 15 /min [facility] 08-26-2022 06:55-0500 SaO2% (BldA) [Mass fraction] 97 % [facility] 08-26-2022 06:55-0500 Systolic blood pressure 157 mm[Hg] [facility] 08-26-2022 05:06-0500 Body height 167.64 cm [facility] 08-26-2022 05:06-0500 Body mass index (BMI) [Ratio] 32.1 kg/m2 [facility] 08-26-2022 05:06-0500 Body temperature 97.6 [degF] [facility] 08-26-2022 05:06-0500 Body weight 90.3 kg [facility] 02-18-2022 11:14-0400 Body temperature 97.7 [degF] NA Mauricio PA-C Work Phone: [facility] 02-18-2022 11:14-0400 Body weight 85.73 kg NA Mauricio PA-C Work Phone: [facility] 02-18-2022 11:14-0400 Diastolic blood pressure 74 mm[Hg] NA Mauricio PA-C Work Phone: [facility] 02-18-2022 11:14-0400 Heart rate 72 /min NA Mauricio PA-C Work Phone: [facility] 02-18-2022 11:14-0400 Respiratory rate 14 /min NA Mauricio PA-C Work Phone: [facility] 02-18-2022 11:14-0400 SaO2% (BldA) [Mass fraction] 96 % NA Mauricio PA-C Work Phone: [facility] 02-18-2022 11:14-0400 Systolic blood pressure 132 mm[Hg] NA Mauricio PA-C Work Phone: [facility] 02-12-2022 14:18-0400 Body weight 86.18 kg Eulalia Tannhof ENROLLMENT ELIGIBILITY REPRESENTATIVE.MEASUREMENT ADVISOR Work Phone: [facility] 02-12-2022 14:18-0400 Diastolic blood pressure 62 mm[Hg] Eulalia Tannhof ENROLLMENT ELIGIBILITY REPRESENTATIVE.MEASUREMENT ADVISOR Work Phone: [facility] 02-12-2022 14:18-0400 Heart rate 60 /min Eulalia Tannhof ENROLLMENT ELIGIBILITY REPRESENTATIVE.MEASUREMENT ADVISOR Work Phone: [facility] 02-12-2022 14:18-0400 Respiratory rate 16 /min Eulalia Tannhof ENROLLMENT ELIGIBILITY REPRESENTATIVE.MEASUREMENT ADVISOR Work Phone: [facility] 02-12-2022 14:18-0400 SaO2% (BldA) [Mass fraction] 95 % Eulalia Tannhof ENROLLMENT ELIGIBILITY REPRESENTATIVE.MEASUREMENT ADVISOR Work Phone: [facility] 02-12-2022 14:18-0400 Systolic blood pressure 130 mm[Hg] Eulalia Tannhof ENROLLMENT ELIGIBILITY REPRESENTATIVE.MEASUREMENT ADVISOR Work Phone: [facility] 01-29-2022 17:45-0400 Diastolic blood pressure 76 mm[Hg] Gabe Elizabeth MD Work Phone: [facility] 01-29-2022 17:45-0400 Heart rate 58 /min Gbae Elizabeth MD Work Phone: [facility] 01-29-2022 17:45-0400 Respiratory rate 16 /min Gabe Elizabeth MD Work Phone: [facility] 01-29-2022 17:45-0400 SaO2% (BldA) [Mass fraction] 96 % Gabe Elizabeth MD Work Phone: [facility] 01-29-2022 17:45-0400 Systolic blood pressure 165 mm[Hg] Gabe Elizabeth MD Work Phone: [facility] 01-29-2022 17:19-0400 Body temperature 97 [degF] Gabe Elizabeth MD Work Phone: [facility] 01-27-2022 08:29-0400 Body height 167.6 cm Pacc 1 Work Phone: [facility] 01-27-2022 08:29-0400 Body temperature 98.91 [degF] Pacc 1 Work Phone: [facility] 01-27-2022 08:29-0400 Body weight 85.28 kg Pacc 1 Work Phone: [facility] 01-27-2022 08:29-0400 Diastolic blood pressure 64 mm[Hg] Pacc 1 Work Phone: [facility] 01-27-2022 08:29-0400 Heart rate 65 /min Pacc 1 Work Phone: [facility] 01-27-2022 08:29-0400 Respiratory rate 16 /min Pacc 1 Work Phone: [facility] 01-27-2022 08:29-0400 SaO2% (BldA) [Mass fraction] 99 % Pacc 1 Work Phone: [facility] 01-27-2022 08:29-0400 Systolic blood pressure 122 mm[Hg] Pacc 1 Work Phone: [facility] 01-21-2022 08:36-0400 Body height 167.6 cm Gabe Elizabeth MD Work Phone: [facility] 01-21-2022 08:36-0400 Body weight 86.18 kg Gabe Elizabeth MD Work Phone: [facility] 01-04-2022 13:47-0400 Body weight 86.27 kg Nina Marley APRN.MEASUREMENT ADVISOR Work Phone: [facility] 01-04-2022 13:47-0400 Diastolic blood pressure 68 mm[Hg] Nina Marley ENROLLMENT ELIGIBILITY REPRESENTATIVE.MEASUREMENT ADVISOR Work Phone: [facility] 01-04-2022 13:47-0400 Heart rate 80 /min Nina Marley ENROLLMENT ELIGIBILITY REPRESENTATIVE.MEASUREMENT ADVISOR Work Phone: [facility] 01-04-2022 13:47-0400 Respiratory rate 16 /min Nina Marley APRN.MEASUREMENT ADVISOR Work Phone: [facility] 01-04-2022 13:47-0400 SaO2% (BldA) [Mass fraction] 96 % Nina Marley ENROLLMENT ELIGIBILITY REPRESENTATIVE.MEASUREMENT ADVISOR Work Phone: [facility] 01-04-2022 13:47-0400 Systolic blood pressure 146 mm[Hg] Nina Marley ENROLLMENT ELIGIBILITY REPRESENTATIVE.MEASUREMENT ADVISOR Work Phone: [facility] 10-19-2021 13:08-0400 Body weight 88.91 kg Braulio Whitney MD Work Phone: [facility] 10-19-2021 13:08-0400 Diastolic blood pressure 82 mm[Hg] Braulio Whitney MD Work Phone: [facility] 10-19-2021 13:08-0400 Heart rate 64 /min Braulio Whitney MD Work Phone: [facility] 10-19-2021 13:08-0400 Systolic blood pressure 132 mm[Hg] Braulio Whitney MD Work Phone: [facility] Encounters Encounter Date Encounter Type Care Provider Facility Start: 04-08-2025 End: 04-08-2025 ambulatory [facility] Facility:[facility] Start: 04-08-2025 End: 04-08-2025 ambulatory [facility] Facility:[facility] Start: 01-15-2025 End: 01-15-2025 Telephone encounter Braulio Whitney MD Work Phone: [facility] [place] Comment on above: Fax Request Start: 01-08-2025 End: 01-08-2025 ambulatory Michael Russo PT Work Phone: [place] [facility] Physical Therapy Comment on above: Lumbar spondylosis ( Primary Dx) Start: 01-02-2025 End: 01-02-2025 ambulatory BRAULIO WHITNEY Facility:[facility] Start: 01-02-2025 End: 01-02-2025 Patient encounter procedure Nina Marley APRN.MEASUREMENT ADVISOR Work Phone: [facility] Comment on above: Lumbar spondylosis ( Primary Dx); Medicare annual wellness visit, subsequent; Depression, unspecified depression type Start: 01-01-2025 End: 01-01-2025 ambulatory Anusha Minaba DEPOT MANAGER Work Phone: [facility] Comment on above: Lumbar spondylosis ( Primary Dx); Primary osteoarthritis of both knees Start: 12-25-2024 End: 12-25-2024 ambulatory Anusha Murphymade.comba DEPOT MANAGER Work Phone: [facility] Comment on above: Lumbar spondylosis ( Primary Dx) Start: 12-18-2024 End: 12-18-2024 ambulatory Anusha Minaba DEPOT MANAGER Work Phone: [facility] Comment on above: Lumbar spondylosis ( Primary Dx) Start: 12-11-2024 End: 12-11-2024 ambulatory Michael Golias PT Work Phone: [facility] Comment on above: Lumbar spondylosis ( Primary Dx) Start: 11-30-2024 End: 11-30-2024 Office outpatient visit 15 minutes Marii Red ENROLLMENT ELIGIBILITY REPRESENTATIVE.MEASUREMENT ADVISOR Work Phone: [facility] Comment on above: Sciatica of right si de (Primary Dx) Start: 11-30-2024 End: 11-30-2024 ambulatory MARII RED Facility:[facility] Start: 11-30-2024 End: 11-30-2024 Patient encounter procedure Jamey Dye MD Work Phone: [facility] Comment on above: Right leg pain (Prim chris Dx) Start: 11-30-2024 End: 11-30-2024 ambulatory JAMEY DYE Facility:[facility] Start: 11-27-2024 End: 11-27-2024 ambulatory Michael Golias PT Work Phone: [facility] Comment on above: Lumbar spondylosis ( Primary Dx) Start: 11-13-2024 End: 11-13-2024 ambulatory Michael Golias PT Work Phone: [facility] Comment on above: Lumbar spondylosis; Primary osteoarthritis of both knees Start: 11-09-2024 End: 01-08-2025 Follow-up encounter Nina Marley APRN.MEASUREMENT ADVISOR Work Phone: [facility] [place] Start: 11-02-2024 ambulatory [facility] Facility :[facility] Start: 11-02-2024 End: 11-02-2024 Subsequent hospital visit by physician Freda [facility] [place] Work Phone: Radiology Comment on above: Bilateral leg pain [ M79.604, M79.605] Start: 11-02-2024 End: 11-02-2024 Office outpatient visit 25 minutes Zahida Perry APRN.MEASUREMENT ADVISOR Work Phone: [facility] Comment on above: Bilateral leg pain ( Primary Dx); Primary osteoarthritis of both knees; Spinal stenosis of lumbar region with neurogenic claudication; Chronic pain syndrome; Neuropathy - (NOS); Pain in left forearm Start: 11-02-2024 End: 11-02-2024 ambulatory ZAHIDA PERRY Facility:[facility] Start: 11-02-2024 End: 11-02-2024 Patient encounter procedure Grace Briceño APRN.MEASUREMENT ADVISOR Work Phone: [facility] Comment on above: Bilateral impacted c erumen (Primary Dx) Start: 11-02-2024 End: 11-02-2024 ambulatory GRACE BRICEÑO Facility:[facility] Start: 10-24-2024 ambulatory RAFY RAZA Facil ity:[facility] Start: 10-24-2024 End: 10-24-2024 Subsequent hospital visit by physician Rafy Raza MD Work Phone: Ambulatory Surgery Comment on above: Screen for colon can cer [Z12.11] Start: 10-23-2024 End: 10-23-2024 Refill Braulio Whitney MD Work Phone: [facility] Comment on above: Refill Request Start: 10-11-2024 End: 10-11-2024 ambulatory BRAULIO WHITNEY Facility:[facility] Start: 10-04-2024 End: 10-05-2024 Follow-up encounter Braulio Whitney MD Work Phone: Pulmonology [facility] Comment on above: Results Start: 10-03-2024 End: 10-03-2024 ambulatory BRAULIO WHITNEY Facility:[facility] Start: 10-03-2024 End: 10-03-2024 Patient encounter procedure Braulio Whitney MD Work Phone: [facility] [place] Comment on above: Essential hypertensi on, benign (Primary Dx); Hyperlipidemia with target LDL less than 130; Neuropathy - (NOS); Gastroesophageal reflux disease, unspecified whether esophagitis present; Stage 3a chronic kidney disease (HCC); History of melanoma; Impaired fasting glucose; Spinal stenosis of lumbar region with neurogenic claudication Start: 10-03-2024 End: 10-03-2024 ambulatory BRAULIO WHITNEY Facility:[facility] Start: 09-21-2024 End: 09-21-2024 ambulatory Braulio Whitney MD [facility] Start: 09-21-2024 End: 09-21-2024 Patient encounter procedure Braulio Whitney MD Work Phone: [facility] Comment on above: Population Health Na vigation Outreach ([facility] [employer] [place] ) Start: 09-06-2024 End: 09-06-2024 ambulatory LAURIE WILSON Facility:[facility] Start: 09-06-2024 End: 09-06-2024 Patient encounter procedure Laurie Wilson APRN.MEASUREMENT ADVISOR Work Phone: General Surgery Comment on above: Screen for colon can cer (Primary Dx); Family history of colon cancer; History of colonic polyps Start: 07-30-2024 End: 07-30-2024 Office outpatient visit 25 minutes Nina Marley APRN.MEASUREMENT ADVISOR Work Phone: [facility] [place] Comment on above: Essential hypertensi on, benign (Primary Dx); Frequent bowel movements; Tubular adenoma; Left wrist pain Start: 07-30-2024 End: 07-30-2024 ambulatory NINA MARLEY Facility:[facility] Start: 05-04-2024 End: 05-04-2024 ambulatory Sosa Bernstein RN Work Phone: Public Health Policy Analyst Management Comment on above: community monitoring (CDM telephonic/) Start: 04-25-2024 End: 04-25-2024 Emergency department patient visit Devin Arroyo Facility:[facility] Start: 04-06-2024 End: 04-06-2024 ambulatory Sosa Bernstein RN Work Phone: Public Health Policy Analyst Management Comment on above: community monitoring (CDM telephonic/) Start: 04-06-2024 End: 04-06-2024 Telephone encounter Braulio Whiteny MD Work Phone: [facility] Comment on above: Results Start: 04-04-2024 End: 04-04-2024 Patient encounter procedure Braulio Whitney MD Work Phone: [facility] Comment on above: Essential hypertensi on, benign (Primary Dx); Hyperlipidemia with target LDL less than 130; BPPV (benign paroxysmal positional vertigo), unspecified laterality; Female stress incontinence; Melanoma of left upper arm (HCC); Impaired fasting glucose; Spinal stenosis of lumbar region with neurogenic claudication; Class 1 obesity with body mass index (BMI) of 30.0 to 30.9 in adult, unspecified obesity type, unspecified whether serious comorbidity present Start: 03-28-2024 End: 03-28-2024 Emergency department patient visit Juan Dockery Facility:[facility] Start: 03-21-2024 End: 03-21-2024 Refill Braulio Whitney MD Work Phone: [facility] Comment on above: Refill Request Start: 03-09-2024 End: 03-09-2024 ambulatory Sosa Bernstein RN Work Phone: Public Health Policy Analyst Management Start: 02-13-2024 End: 02-13-2024 Social Work [facility] Comment on above: Needs assistance wit h community resources (Primary Dx) Start: 02-10-2024 End: 02-10-2024 ambulatory Sosa Bernstein RN Work Phone: Public Health Policy Analyst Management Comment on above: community monitorin (CDM telephonic/) Start: 01-28-2024 End: 01-28-2024 Patient encounter procedure Braulio Whitney MD Work Phone: [facility] Comment on above: Acute pain of left k nee (Primary Dx); Contusion of left lower leg, subsequent encounter Start: 01-21-2024 End: 01-21-2024 Emergency department patient visit Braulio Whitfieldo Facility:[facility] Start: 01-21-2024 End: 01-21-2024 Patient encounter procedure Jamey Dye MD Work Phone: [facility] Comment on above: Acute pain of left k nee (Primary Dx) Start: 01-13-2024 ambulatory Sosa del toro RN Work Phone: Public Health Policy Analyst Management Comment on above: community monitoring (CDM telephonic/) Start: 12-19-2023 Refill Braulio Whitney MD Work Phone: [facility] Comment on above: Refill Request Start: 12-16-2023 Refill Braulio Whitney MD Work Phone: [facility] Comment on above: Refill Request Start: 12-14-2023 ambulatory Sosa del toro RN Work Phone: Public Health Policy Analyst Management Comment on above: community monitoring (CDM telephonic/) Start: 11-18-2023 ambulatory Sosa del toro RN Work Phone: Public Health Policy Analyst Management Comment on above: community monitoring (CDM telephonic/) Start: 11-10-2023 ambulatory Sosa del toro RN Work Phone: Public Health Policy Analyst Management Start: 10-13-2023 ambulatory Sosa del toro RN Work Phone: Public Health Policy Analyst Management Comment on above: community monitoring (CDM telephonic/) Start: 10-03-2023 Telephone encounter Braulio Whitney MD Work Phone: [facility] Comment on above: Results Start: 09-30-2023 End: 09-30-2023 Patient encounter procedure Braulio Whitney MD Work Phone: [facility] Comment on above: Essential hypertensi on, benign (Primary Dx); Hyperlipidemia with target LDL less than 130; Female stress incontinence; Melanoma of left upper arm (HCC); History of iron deficiency; Spinal stenosis of lumbar region with neurogenic claudication; Hyperglycemia Start: 08-25-2023 Telephone encounter Marii Red APRN.FLANGING ROLL OPERATOR Work Phone: [facility] [place] Comment on above: Refill Request Start: 08-18-2023 ambulatory Sosa del toro RN Work Phone: Public Health Policy Analyst Management Comment on above: community monitoring (CDM telephonic/) Start: 08-01-2023 End: 08-01-2023 ambulatory BRAULIO RIVERA [facility] Start: 07-21-2023 ambulatory Sosa del toro RN Work Phone: Public Health Policy Analyst Management Comment on above: community monitoring (CDM telephonic/) Start: 05-26-2023 ambulatory Sosa del toro RN Work Phone: Public Health Policy Analyst Management Comment on above: community monitoring (CDM telephonic/) Start: 05-18-2023 Refill Braulio Whitney MD Work Phone: [facility] [place] Comment on above: Refill Request Start: 04-28-2023 ambulatory Sosa del toro RN Work Phone: Public Health Policy Analyst Management Comment on above: community monitoring (CDM telephonic/) Start: 03-31-2023 ambulatory Sosa del toro RN Work Phone: Public Health Policy Analyst Management Comment on above: community monitoring (CDM telephonic/) Start: 03-31-2023 End: 03-31-2023 Patient encounter alan Mauricio PA-C Work Phone: [facility] [place] Comment on above: Essential hypertensi on, benign (Primary Dx); Hyperlipidemia with target LDL less than 130; Stage 3a chronic kidney disease (HCC); Impaired fasting glucose; History of iron deficiency; Spinal stenosis of lumbar region with neurogenic claudication Start: 03-24-2023 End: 03-24-2023 Subsequent hospital visit by physician [facility] Work Phone: Radiology Comment on above: RUQ pain [R10.11] Start: 03-17-2023 Telephone encounter Braulio Whitney MD Work Phone: [facility] [place] Comment on above: Results Start: 03-17-2023 End: 03-17-2023 Subsequent hospital visit by physician Xr [facility] [place] Work Phone: Radiology Comment on above: Bronchitis [J40] Start: 02-14-2023 Refill Braulio Whitney MD Work Phone: [facility] [place] Comment on above: Refill Request Start: 02-09-2023 Telephone encounter Braulio Whitney MD Work Phone: [facility] [place] Comment on above: Results (Knee xray) Start: 02-05-2023 Telephone encounter Bam Kern MD Work Phone: [facility] [place] Comment on above: Refill Request Start: 02-04-2023 End: 02-04-2023 Subsequent hospital visit by physician Xr [facility] Work Phone: Radiology Comment on above: Acute pain of right knee [M25.561] Start: 02-04-2023 End: 02-04-2023 Patient encounter procedure Braulio Whitney MD Work Phone: [facility] [place] Comment on above: Acute pain of right knee (Primary Dx); Rosacea Start: 02-03-2023 ambulatory Sosa del toro RN Work Phone: Public Health Policy Analyst Management Comment on above: community monitoring (CDM telephonic/) Start: 01-05-2023 ambulatory Sosa del toro RN Work Phone: Public Health Policy Analyst Management Comment on above: community monitoring (CDM telephonic/) Start: 10-11-2022 Refill Braulio Whitney MD Work Phone: [facility] [place] Comment on above: Refill Request Start: 09-10-2022 End: 09-10-2022 Patient encounter procedure Braulio Whitney MD Work Phone: [facility] [place] Comment on above: Left arm pain (Prima ry Dx); Hypokalemia; Essential hypertension, benign; Hyperlipidemia with target LDL less than 130 Start: 09-07-2022 ambulatory Cece Mann May R N Work Phone: Public Health Policy Analyst Management Comment on above: CDM (Check in call/) Start: 08-26-2022 End: 08-26-2022 Emergency department patient visit [facility] Start: 08-03-2022 ambulatory Cece Mann May R N Work Phone: Public Health Policy Analyst Management Comment on above: CDM (Check in call/) Start: 06-09-2022 ambulatory Cece Mann May R N Work Phone: Public Health Policy Analyst Management Comment on above: CDM (Check in call/) Start: 06-07-2022 Refill Braulio Whitney MD Work Phone: [facility] Comment on above: Refill Request Start: 05-07-2022 ambulatory Cece Mann May R N Work Phone: Public Health Policy Analyst Management Comment on above: CDM (CDM check in ca ll/) Start: 04-08-2022 ambulatory Cece Mann May R N Work Phone: Public Health Policy Analyst Management Comment on above: Community Monitoring Outreach ([facility]ight check in call/) Start: 03-11-2022 End: 03-11-2022 Patient encounter procedure Gabe Elizabeth MD Work Phone: Orthopaedics Comment on above: Carpal tunnel syndro me on left (Primary Dx); Skin lesion of hand Start: 03-10-2022 ambulatory Cece Mann May R N Work Phone: Public Health Policy Analyst Management Comment on above: Community Monitoring Outreach (inSight check in call/) Start: 02-18-2022 End: 02-18-2022 Patient encounter procedure Marlon Mauricio PA-C Work Phone: [facility] Comment on above: Impacted cerumen of left ear (Primary Dx) Start: 02-17-2022 ambulatory Vicky Garrison RN NURSE PLANT OPERATIONS WORKER Comment on above: Ear Problem Population Health Na vigation Outreach ([facility]/) Start: 02-12-2022 End: 02-12-2022 Patient encounter procedure Eulalia Maitlde ENROLLMENT ELIGIBILITY REPRESENTATIVE.MEASUREMENT ADVISOR Work Phone: [facility] Comment on above: Hearing difficulty o f both ears (Primary Dx); Dermatitis of ear canal, left; Impacted cerumen of right ear Start: 02-10-2022 ambulatory Lesli Hughes RN NU RSE PLANT OPERATIONS WORKER Comment on above: Ringing in ears Start: 02-08-2022 End: 02-08-2022 Patient encounter procedure Deepika James PA-C Work Phone: Orthopaedics Comment on above: Carpal tunnel syndro me on left (Primary Dx); Skin lesion of hand Start: 02-01-2022 Telephone encounter Deepika chance PA-C Work Phone: Orthopaedics Comment on above: Patient Update Start: 01-29-2022 End: 01-29-2022 Subsequent hospital visit by physician Gabe Elizabeth MD Work Phone: [facility] Surgery Comment on above: Carpal tunnel syndro me on left [G56.02] Start: 01-27-2022 End: 01-27-2022 Admission to establishment [facility] [place] 1 Work Phone: [facility] [place] Start: 01-27-2022 End: 01-27-2022 [facility] [place] 1 Work Phone: Pre Anesthesia Comment on above: Pre-operative examin ation (Primary Dx); Carpal tunnel syndrome, unspecified laterality; Gastroesophageal reflux disease, unspecified whether esophagitis present; Essential hypertension, benign; Female stress incontinence; Hyperlipidemia with target LDL less than 130; Glaucoma suspect of both eyes; Impaired fasting glucose; Neuropathy - (NOS); Melanoma of left upper arm (HCC); Stage 3a chronic kidney disease (HCC); Spinal stenosis of lumbar region with neurogenic claudication; Class 1 obesity due to excess calories with body mass index (BMI) of 30.0 to 30.9 in adult, unspecified whether serious comorbidity present Start: 01-27-2022 End: 01-27-2022 [facility] Work Phone: Pre [facility] Start: 01-26-2022 ambulatory Cece Mann May R N Work Phone: Public Health Policy Analyst Management Comment on above: Community Monitoring Outreach ([facility] at [facility]) Start: 01-21-2022 Telephone encounter Gabe ferraro MD Work Phone: Orthopaedics Comment on above: Schedule Surgery Start: 01-21-2022 End: 01-21-2022 Patient encounter procedure Gabe Elizabeth MD Work Phone: Orthopaedics Comment on above: Skin lesion of hand (Primary Dx); Carpal tunnel syndrome, bilateral Start: 01-04-2022 End: 01-04-2022 Office outpatient visit 15 minutes Nina Marley APRN.MEASUREMENT ADVISOR Work Phone: [facility] Comment on above: Hoarseness (Primary Dx); Carpal tunnel syndrome, bilateral; Ear itching; Skin lesion Start: 12-31-2021 ambulatory Cece Mann May R N Work Phone: Public Health Policy Analyst Management Comment on above: community monitoring outreach (insight enroll) Start: 10-19-2021 End: 10-19-2021 Patient encounter procedure Braulio Whitney MD Work Phone: [facility] Comment on above: Stage 3a chronic kid tadeo disease (HCC) (Primary Dx); Hyperlipidemia with target LDL less than 130; Skin cancer; Melanoma of left upper arm (HCC); Impaired fasting glucose Start: 09-04-2020 End: 09-04-2020 Subsequent hospital visit by physician Freda [facility] Work Phone: Radiology Comment on above: Pain of right lower extremity [M79.604] Start: 02-07-2007 End: 04-22-2011 Patient encounter status Sosa Bernstein RN Work Phone: [facility] Procedures Date Procedure Procedure Detail Performing Clinician Start: 10-24-2024 Colonoscopy flx dx w /collj spec when pfrmd Laurie Wilson APRN.MEASUREMENT ADVISOR Work Phone: Start: 09-30-2023 Adult depression scr eening assessment Sosa Bernstein RN Work Phone: Start: 10-05-2023 Us abdominal real ti me w/image limited Braulio Whitney MD Work Phone: Start: 03-17-2023 Radiologic exam ches t 2 views Braulio Whitney MD Work Phone: Start: 02-04-2023 Radiologic exam knee complete 4/more views Braulio Whitney MD Work Phone: Start: 08-26-2022 Plain chest X-ray Start: 09-04-2020 Radiologic examinati on tibia & fibula 2 views Bam Trivedi ENROLLMENT ELIGIBILITY REPRESENTATIVE.MEASUREMENT ADVISOR Work Phone: Plan of Treatment Date Care Activity Detail Author Start: 10-12-2027 [facility] Start: 10-04-2027 [facility] Start: 04-05-2027 [facility] Start: 09-29-2026 [facility] Start: 03-18-2026 [facility] Start: 10-03-2025 Covid-19 Vaccine ( season) Covid-19 Vaccine ( season) [facility] Comment on above: Postponed from 08/15 (Declined at this time) Start: 10-03-2025 RSV Vaccine (1 - 1-d ose 75+ series) RSV Vaccine (1 - 1-dose 75+ series) [facility] Comment on above: Postponed from 06/10 (Declined at this time) Start: 04-23-2025 DIABETES SCREEN DIABETES SCREEN [facility] Start: 04-23-2025 [facility] Start: 04-08-2025 End: 04-08-2025 Patient encounter procedure 04/08/2025 9:40 AM EDT Office Visit Family [facility] [address] [place] [address] Braulio Whitney MD [address] [place], [place] [id number] 6 mo follow up Family [facility] Comment on above: 6 mo follow up Start: 02-18-2025 Influenza vaccination Influenza Vacc ine (#1) [facility] Start: 01-28-2025 End: 01-28-2025 Patient encounter procedure 01/28/2025 11:00 AM EDT Office Visit Orthopaedics [address] [place] [address] Deepika James PA-C [address] [place] [address] Primary osteoarthritis of both knees [M17.0] Orthopaedics Comment on above: Primary osteoarthrit is of both knees [M17.0] Start: 01-27-2025 Covid-19 Vaccine ( season) Covid-19 Vaccine () [facility] Comment on above: Postponed from 08/14 (Declined at this time) Start: 01-08-2025 End: 01-08-2025 ambulatory 01/08/2025 10:45 AM EDT OT/PT/Speech Visit [facility] [address] [place] [address] Michael Russo, PT [address] [place] [address] M47.816 (ICD-10-CM) - Lumbar spondylosis [facility] Comment on above: M47.816 (ICD-10-CM) - Lumbar spondylosis Start: 01-02-2025 End: 01-02-2025 Patient encounter procedure 01/02/2025 8:40 AM EDT Office Visit [facility] [place] [address] [place] [address] Nina Marley APRN.MEASUREMENT ADVISOR [address] [place] [address] medicare wellness [facility] [place] Comment on above: medicare wellness Start: 01-01-2025 End: 01-01-2025 ambulatory 01/01/2025 2:00 PM EDT OT/PT/Speech Visit [facility] [address] [place] [address] Anusha Martins, DEPOT MANAGER [address] [place] [address] Lumbar Spodylosis [facility] Comment on above: Lumbar Spodylosis Start: 12-25-2024 End: 12-25-2024 ambulatory 12/25/2024 2:00 PM EDT OT/PT/Speech Visit [facility] [address] [place] [address] Paola Martinsh, DEPOT MANAGER [address] [place] [address] Lumbar Spodylosis [facility] Comment on above: Lumbar Spodylosis Start: 12-18-2024 End: 12-18-2024 ambulatory 12/18/2024 2:00 PM EDT OT/PT/Speech Visit [facility] [address] [place] [address] Paola Martinsh, DEPOT MANAGER [address] [place] [address] Lumbar Spodylosis [facility] Comment on above: Lumbar Spodylosis Start: 12-11-2024 End: 12-11-2024 ambulatory 12/11/2024 2:00 PM EDT OT/PT/Speech Visit [facility] [address] [place] [address] Michael Russo, PT [address] [place] [address] Lumbar Spodylosis [facility] Comment on above: Lumbar Spodylosis Start: 12-04-2024 End: 12-04-2024 ambulatory 12/04/2024 2:00 PM EDT OT/PT/Speech Visit [facility] [address] [place] [address] Michael Russo, PT [address] [place] [address] Lumbar Spodylosis [facility] Comment on above: Lumbar Spodylosis Start: 11-30-2024 End: 11-30-2024 Patient encounter procedure 11/30/2024 4:00 PM EDT Office Visit [facility] [address] [facility] [place] [address] Marii Red APRN.MEASUREMENT ADVISOR [address] [place] [address] follow up joint pain [facility] Comment on above: follow up joint pain Start: 10-24-2024 End: 10-24-2024 Patient encounter procedure 10/24/2024 10:30 AM EDT Appointment Ambulatory Surgery [address] [place], [place] [id number] Rafy Raza MD [address] [place] [address] COLONOSCOPY Ambulatory Surgery Comment on above: COLONOSCOPY Start: 10-11-2024 End: 10-04-2025 25-hydroxyvitamin D3 [Mass/volume] in Serum or Plasma VITAMIN D 25 HYDROXY Lab Routine Renal insufficiency Hypercalcemia Expected: 10/11/2024, Expires: 10/04/2025 [facility] Work Phone: Comment on above: Expected: 10/11/2024 , Expires: 10/04/2025 Start: 10-11-2024 End: 01-10-2025 Basic metabolic 2000 panel - Serum or Plasma BASIC METABOLIC PANEL Lab Routine Renal insufficiency Hypercalcemia Expected: 10/11/2024, Expires: 01/10/2025 [facility] Comment on above: Expected: 10/11/2024 , Expires: 01/10/2025 Start: 10-11-2024 End: 10-04-2025 Calcium.ionized [Moles/volume] in Blood CALCIUM, IONIZED Lab Routine Renal insufficiency Hypercalcemia Expected: 10/11/2024, Expires: 10/04/2025 [facility] Comment on above: Expected: 10/11/2024 , Expires: 10/04/2025 Start: 10-11-2024 End: 10-04-2025 Parathyrin.intact [Mass/volume] in Serum or Plasma PTH INTACT Lab Routine Renal insufficiency Hypercalcemia Expected: 10/11/2024, Expires: 10/04/2025 [facility] Comment on above: Expected: 10/11/2024 , Expires: 10/04/2025 Start: 10-03-2024 End: 01-02-2025 Basic metabolic 2000 panel - Serum or Plasma [facility] Work Phone: Comment on above: Expected: 10/03/2024 , Expires: 01/02/2025 Start: 10-03-2024 End: 10-03-2024 Patient encounter procedure 10/03/2024 9:40 AM EDT Office Visit [facility] [address] [place], [place] [id number] Braulio Whitney MD [address] [place] [address] 6 month follow up [facility] Comment on above: 6 month follow up Start: 09-29-2024 Anxiety Screening Anxiety Screening [facility] Start: 09-29-2024 Depression Screening Depression Scre [facility] Start: 09-29-2024 RSV Vaccine (1 - 1-d ose 60+ series) RSV Vaccine (1 - 1-dose 60+ series) [facility] Comment on above: Postponed from 06/10 (Declined at this time) Start: 09-29-2024 RSV Vaccine (1 - 1-d ose 75+ series) RSV Vaccine (1 - 1-dose 75+ series) [facility] Comment on above: Postponed from 06/10 (Declined at this time) Start: 08-15-2024 Covid-19 Vaccine ( season) Covid-19 Vaccine ( season) [facility] Start: 08-06-2024 End: 08-06-2024 Patient encounter procedure 08/06/2024 9:45 AM EST Office Visit General Surgery [address] [place] [address] Lorena Li MD [address] [place] [id number] Dx: Tubular adenoma [D36.9] General Surgery Comment on above: Dx: Tubular adenoma [D36.9] Start: 06-20-2024 Advance Directive Discussion Advance Directive Discussion [facility] Start: 06-20-2024 Medicare Advantage Annual Wellness Visit Medicare Advantage Annual Wellness Visit [facility] Start: 05-18-2024 DIABETES SCREEN DIABETES SCREEN [facility] Start: 04-04-2024 End: 07-04-2024 CBC W Auto Differential panel - Blood COMPLETE BLOOD COUNT AND DIFFERENTIAL Lab Routine Essential hypertension, benign Expected: 04/04/2024, Expires: 07/04/2024 [facility] Work Phone: Comment on above: Expected: 04/04/2024 , Expires: 07/04/2024 Start: 04-04-2024 End: 07-04-2024 Comprehensive metabolic 2000 panel - Serum or Plasma COMPREHENSIVE METABOLIC PANEL Lab Routine Essential hypertension, benign Expected: 04/04/2024, Expires: 07/04/2024 [facility] Comment on above: Expected: 04/04/2024 , Expires: 07/04/2024 Start: 04-04-2024 End: 07-04-2024 Hemoglobin A1c in Blood HEMOGLOBIN A1C Lab Routine Impaired fasting glucose Expected: 04/04/2024, Expires: 07/04/2024 [facility] Comment on above: Expected: 04/04/2024 , Expires: 07/04/2024 Start: 04-04-2024 End: 07-04-2024 Lipid 1996 panel - Serum or Plasma LIPID PANEL BASIC Lab Routine Essential hypertension, benign Expected: 04/04/2024, Expires: 07/04/2024 [facility] Comment on above: Expected: 04/04/2024 , Expires: 07/04/2024 Start: 04-04-2024 End: 04-04-2024 Patient encounter procedure 04/04/2024 9:40 AM EDT Office Visit [facility] [address] [place] [address] Braulio Whitney MD [address] [place] [address] 6 month follow up [facility] Comment on above: 6 month follow up Start: 03-17-2024 Covid-19 Vaccine () Covid-19 Vaccine () [facility] Comment on above: Postponed from 02/18 (Declined at this time) Start: 03-17-2024 Covid-19 Vaccine (6 - Pfizer series) Covid-19 Vaccine (6 - Pfizer series) [facility] Comment on above: Postponed from 08/21 (Declined at this time) Start: 02-19-2024 Influenza vaccination Influenza Vacc ine (#1) [facility] Start: 08-14-2023 Covid-19 Vaccine () Covid-19 Vaccine () [facility] Start: 06-20-2023 Advance Directive Discussion Advance Directive Discussion [facility] Start: 06-20-2023 Depression Assessment Depression Ass essment [facility] Start: 04-21-2023 COVID-19 VACCINE (5 - Booster for Pfizer series) COVID-19 VACCINE (5 - Booster for Pfizer series) [facility] Comment on above: Postponed from 12/29 (Declined at this time) Start: 02-18-2023 Influenza vaccination INFLUENZA (#1) [facility] Start: 09-10-2022 End: 11-10-2022 POTASSIUM BLD [facility] Work Phone: Comment on above: Expected: 09/10/2022 , Expires: 11/10/2022 Start: 08-21-2022 COVID-19 VACCINE (6 - Pfizer series) COVID-19 VACCINE (6 - Pfizer series) [facility] Start: 06-20-2022 ADVANCE DIRECTIVE DISCUSSION ADVANCE DIRECTIVE DISCUSSION [facility] Start: 06-20-2022 DEPRESSION ASSESSMENT DEPRESSION ASS ESSMENT [facility] Start: 04-21-2022 End: 06-21-2022 CBC W Auto Differential panel - Blood CBC + DIFF Lab Routine Stage 3a chronic kidney disease (HCC) Expected: 04/21/2022, Expires: 06/21/2022 [facility] Work Phone: Comment on above: Expected: 04/21/2022 , Expires: 06/21/2022 Start: 04-21-2022 End: 06-21-2022 Comprehensive metabolic 2000 panel - Serum or Plasma COMP METABOLIC PANEL Lab Routine Stage 3a chronic kidney disease (HCC) Expected: 04/21/2022, Expires: 06/21/2022 [facility] Work Phone: Comment on above: Expected: 04/21/2022 , Expires: 06/21/2022 Start: 04-21-2022 End: 06-21-2022 Hemoglobin A1c/Hemoglobin.total in Blood HGB A1C Lab Routine Impaired fasting glucose Expected: 04/21/2022, Expires: 06/21/2022 [facility] Work Phone: Comment on above: Expected: 04/21/2022 , Expires: 06/21/2022 Start: 04-21-2022 End: 06-21-2022 LIPID PANEL BASIC LIPID PANEL BASIC Lab Routine Hyperlipidemia with target LDL less than 130 Expected: 04/21/2022, Expires: 06/21/2022 [facility] Work Phone: Comment on above: Expected: 04/21/2022 , Expires: 06/21/2022 Start: 02-18-2022 Influenza vaccination INFLUENZA (#1) [facility] Start: 12-29-2021 COVID-19 VACCINE (5 - Booster for Pfizer series) COVID-19 VACCINE (5 - Booster for Pfizer series) [facility] Start: 08-08-2021 COVID-19 VACCINE (4 - Booster for Pfizer series) COVID-19 VACCINE (4 - Booster for Pfizer series) [facility] Start: 06-20-2021 DEPRESSION ASSESSMENT DEPRESSION ASS ESSMENT [facility] Start: 06-20-2012 SHINGRIX VACCINE (2 of 3) SHINGRIX VACCINE (2 of 3) [facility] Start: 07-12-2009 Urine microalbumin profile DTAP,TDAP,TD (1 - Tdap) [facility] Start: 2000 RSV Vaccine (1 - 1-d ose 60+ series) RSV Vaccine (1 - 1-dose 60+ series) [facility] Patient Education ED Hypertensio n, To Be Confirmed ED Muscle Strain, Extremity [facility] Work Phone: Patient referral [facility] Work Phone: Removal impacted cer umen irrigation/lvg unilat AMBULATORY EAR LAVAGE/IRRIGATION Procedures Routine Bilateral impacted cerumen Ordered: 11/02/2024 [facility] Work Phone: Comment on above: Ordered: 11/02/2024 End: 09-06-2025 Screening colonoscopy COLONOSCOPY SCREENING Endoscopy Routine Screen for colon cancer Family history of colon cancer History of colonic polyps 1 Occurrences starting 09/06/2024 until 09/06/2025 [facility] Work Phone: Comment on above: 1 Occurrences starti ng 09/06/2024 until 09/06/2025 SURGICAL PATHOLOGY SURGICAL PATH OLOGY Lab Routine Carpal tunnel syndrome on left Skin lesion of hand Release Upon Ordering for 1 Occurrences starting 01/29/2022 [facility] Work Phone: Comment on above: Release Upon Orderin g for 1 Occurrences starting 01/29/2022 End: 12-02-2025 XR Knee - bilateral 4 Views XR KNEE GENERAL 4V AP BOTH/PA BOTH/LAT/MERC BILATERAL Radiology Routine Bilateral leg pain Primary osteoarthritis of both 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 1 Occurrences starting 11/02/2024 until 12/02/2025 [facility] Comment on above: 1 Occurrences starti ng 11/02/2024 until 12/02/2025 XR Knee - bilateral 4 Views XR KNEE GENERAL 4V AP BOTH/PA BOTH/LAT/MERC BILATERAL Radiology Routine Bilateral leg pain Primary osteoarthritis of both knees 11/02/2024 11:03 AM EDT [facility] End: 03-05-2024 XR KNEE GENERAL 4V AP BOTH/PA BOTH/LAT/MERC RIGHT XR KNEE GENERAL 4V AP BOTH/PA BOTH/LAT/MERC RIGHT Radiology Routine Acute pain of right knee 1 Occurrences starting 02/04/2023 until 03/05/2024 [facility] Work Phone: Comment on above: 1 Occurrences starti ng 02/04/2023 until 03/05/2024 XR KNEE GENERAL 4V A P BOTH/PA BOTH/LAT/MERC RIGHT XR KNEE GENERAL 4V AP BOTH/PA BOTH/LAT/MERC RIGHT Radiology Routine Acute pain of right knee 02/04/2023 10:12 AM EDT [facility] Work Phone: End: 12-02-2025 XR Lumbar spine 3 Views XR LUMBAR GENERAL 3V AP/LAT/L5-S1 Radiology Routine Bilateral leg pain Primary osteoarthritis of both 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 1 Occurrences starting 11/02/2024 until 12/02/2025 [facility] Work Phone: Comment on above: 1 Occurrences starti ng 11/02/2024 until 12/02/2025 XR Lumbar spine 3 Views XR LUMBA R GENERAL 3V AP/LAT/L5-S1 Radiology Routine Bilateral leg pain Primary osteoarthritis of both knees 11/02/2024 11:03 AM EDT [facility] Immunizations Immunization Date Immunization Notes Care Provider [facility] 09-07-2024 tetanus toxoid, redu kamar diphtheria toxoid, and acellular pertussis vaccine, adsorbed Braulio Whitney MD Work Phone: [facility] 02-13-2024 COVID-19 vaccine, unspecified formulation Sosa Bernstein RN Work Phone: [facility] 02-13-2024 influenza, high dose seasonal, preservative-free Sosa Bernstein RN Work Phone: [facility] 02-13-2024 influenza virus vacc ine, unspecified formulation Anusha Martins DEPOT MANAGER Work Phone: [facility] 04-13-2023 COVID-19 vaccine, ag e 12+ yr, season ([employer]) Sosa Bernstein RN Work Phone: [facility] 01-25-2023 influenza (HD-IIV4) vaccine, age 65+ yr, high dose, quadrivalent, PF (FLUZONE HIGH-DOSE) Braulio Whitney MD Work Phone: [facility] 01-25-2023 influenza virus vacc ine, unspecified formulation Braulio Whitney MD Work Phone: [facility] 02-19-2022 influenza, high-dose , quadrivalent vaccine (FLUZONE HIGH DOSE QUADRIVALENT) Cece Brewer RN Work Phone: [facility] 02-17-2021 influenza, high-dose , quadrivalent vaccine (FLUZONE HIGH DOSE QUADRIVALENT) Braulio Whitney MD Work Phone: [facility] 08-08-2020 COVID-19 vaccine, ag e 12+ yr (PFIZER-BIONTECH - PURPLE TOP) Braulio Whitney MD Work Phone: [facility] 07-17-2020 COVID-19 vaccine, ag e 12+ yr (PFIZER-BIONTECH - PURPLE TOP) Braulio Whitney MD Work Phone: [facility] 02-19-2020 influenza, high dose seasonal, preservative-free Braulio Whitney MD Work Phone: [facility] 02-19-2020 influenza, high-dose , quadrivalent vaccine (FLUZONE HIGH DOSE QUADRIVALENT) Braulio Whitney MD Work Phone: [facility] 02-20-2019 influenza, high dose seasonal, preservative-free Braulio Whitney MD Work Phone: [facility] Work Phone: 02-19-2019 influenza, seasonal, injectable [facility] 02-19-2019 influenza, seasonal, injectable, preservative free Nina Marley ENROLLMENT ELIGIBILITY REPRESENTATIVE.MEASUREMENT ADVISOR Work Phone: [facility] 03-19-2018 influenza, high dose seasonal, preservative-free Braulio Whitney MD Work Phone: [facility] 02-27-2018 influenza, high dose seasonal, preservative-free Nina Marley ENROLLMENT ELIGIBILITY REPRESENTATIVE.MEASUREMENT ADVISOR Work Phone: [facility] 03-20-2016 influenza, high dose seasonal, preservative-free Braulio Whitney MD Work Phone: [facility] 06-12-2015 pneumococcal conjuga te vaccine, 13 valent Braulio Whitney MD Work Phone: [facility] 02-27-2015 influenza, high dose seasonal, preservative-free Braulio Whitney MD Work Phone: [facility] 04-08-2013 influenza virus vacc ine, unspecified formulation Braulio Whitney MD Work Phone: [facility] 04-25-2012 influenza virus vacc ine, unspecified formulation Braulio Whitney MD Work Phone: [facility] 04-25-2012 zoster vaccine, live Braulio Whitney MD Work Phone: [facility] Work Phone: 03-20-2011 influenza virus vacc ine, unspecified formulation Braulio Whitney MD Work Phone: [facility] Work Phone: 03-24-2010 influenza virus vacc ine, unspecified formulation Braulio Whitney MD Work Phone: [facility] Work Phone: 03-24-2010 pneumococcal polysaccharide vaccine, 23 valent Braulio Whitney MD Work Phone: [facility] Work Phone: 07-21-2009 novel influenza-H1N1 -09, preservative-free, injectable Braulio Whitney MD Work Phone: [facility] 07-11-2009 tetanus and diphther ia toxoids, adsorbed, preservative free, for adult use (2 Lf of tetanus toxoid and 2 Lf of diphtheria toxoid) Braulio Whitney MD Work Phone: [facility] Work Phone: 03-11-2009 influenza virus vacc ine, unspecified formulation Braulio Whitney MD Work Phone: [facility] Work Phone: 05-03-2008 influenza virus vacc ine, unspecified formulation Braulio Whitney MD Work Phone: [facility] Work Phone: 05-04-2006 influenza virus vacc ine, unspecified formulation Braulio Whitney MD Work Phone: [facility] Work Phone: 04-13-2005 pneumococcal polysaccharide vaccine, 23 valent Braulio Whitney MD Work Phone: [facility] Work Phone: Payers Date Payer Category Payer Self-pay [id number] 2021 Medicare [facility] MEDICARE [employer] MEDICARE PPO [id number] 2021-Present [phone] [place] [address] [id number] 2021 Medicare (Managed Care) [facility] [id number] 2021 Medicare [id number] 2019 Medicare [id number] 1940 Unknown [id number] Unknown [id number] Unknown [id number] Unknown [id number] Social History Date Type Detail Facility Start: 06-03-2014 [facility] Start: 10-19-2021 End: 01-02-2025 Alcohol intake Current non-drinker of alcohol (finding) [facility] Start: 1940 Sex Assigned At Not on file [facility] Start: 08-05-2020 End: 04-21-2022 Exposure to SARS-CoV-2 (event) Not sure [facility] Start: 06-03-2014 Tobacco use and exposure Smokeless tobacco non-user [facility] Start: 08-26-2022 Tobacco smoking stat [facility] Unknown if ever smoked [facility] Start: 02-09-2019 None [facility] Start: 06-27-2019 Secondhand [facility] Start: 1940 Sex Assigned At Female W [facility] Start: 09-10-2022 End: 02-04-2023 History of Social function [facility] Work Phone: Start: 09-10-2022 End: 02-04-2023 Tobacco use panel [facility] Work Phone: Adult Depression Screening Assessment 0 [facility] Work Phone: (I/We) worried wheth er (my/our) food would run out before (I/we) got money to buy more. Never true [facility] Work Phone: How often to you hav e a drink containing alcohol? Never [facility] Work Phone: Medical Equipment Procedure Code Equipment Code Equipment Origin al Text Equipment Identifier Dates Protector Axogua rd 10mm Extracellular Matrix 40mm Nerve Multilaminar - [id number] Start: 01-29-2022 Goals Date Patient Goal Desired Activity /State Personal health goal Personal health goal Comment on above: Formatting of this n ote might be different from the original. Patient has the following Chronic Kidney Disease goals: Two PCP visits annually and Renal panel twice annually Education provided and reviewed with patient - sent on 12/09/22 CKD Zones Patient will meet these goals by: 12/10/23 (describe interventions done by PCC) Formatting of this n ote might be different from the original. Patient has the following Chronic Kidney Disease goals: Two PCP visits annually and Renal panel twice annually Education provided and reviewed with patient - sent on 12/09/22 CKD Zones and Renal Diet Basics Patient will meet these goals by: 12/10/23 (describe interventions done by PCC) 04/28/23- reviewed renal diet basics using teach back Formatting of this n ote might be different from the original. Patient has the following Chronic Kidney Disease goals: Two PCP visits annually and Renal panel twice annually Education provided and reviewed with patient - sent on 12/09/22 CKD Zones and Renal Diet Basics Patient will meet these goals by: 12/10/23 (describe interventions done by PCC) 12/09/22- reviewed with pt 04/28/23- reviewed renal diet basics using teach back Personal health goal Comment on above: Formatting of this n ote might be different from the original. Patient has the following general goals: Two PCP visits annually Patient Stated goal: Lose wt Eating less. Eating fruit and veggies more. Eating less meat Patient will meet these goals by 02/04/24 (describe interventions done by PCC) Personal health goal Comment on above: Formatting of this n ote might be different from the original. Patient has the following High Blood Pressure/Hypertension Goals: Two PCP Visits annually, Nurse / pharmacist / [facility] visit within 4 weeks after PCP visit with uncontrolled BP (>140/90), BMP annually, and Patients specific blood pressure target:130/80 HTN Education given and reviewed with patient --sent on 04/28/23 Medication compliance education, Advise / educate patient to ask for repeat BP check at any appointment if first BP is >140/90, Checking your Blood Pressure at Home, High Blood Pressure: Talking to Your Health Care Provider, and Your Sodium-Controlled Diet Patient will meet these goals by 04/28/24 (reviewed above with pt using teach back) Functional Status Date Assessment Result Facility 01-02-2025 Total score [AUDIT-C] 0 01/03/20 25 8:16 AM Nina Stanford APRN.[facility] 11-12-2014 Are you deaf, or do you have serious difficulty hearing No 11/12/2014 8:16 AM EDT Jailyn Cabrera MA No [facility] 11-12-2014 Are you blind, or do you have serious difficulty seeing, even when wearing glasses No 11/12/2014 8:16 AM EDT Jailyn Cabrera MA No [facility] 11-12-2014 Do you have serious difficulty walking or climbing stairs No 11/12/2014 8:16 AM EDT Jailyn Cabrera MA No [facility] 11-12-2014 Do you have difficul ty dressing or bathing No 11/12/2014 8:16 AM EDT Jailyn Cabrera MA No [facility] 11-12-2014 Because of a physica l, mental, or emotional condition, do you have difficulty doing errands alone such as visiting a physician's office or shopping No 11/12/2014 8:16 AM EDT Jailyn Cabrera MA No [facility] Mental Status Date Assessment Result Facility 08-26-2022 Cognitive function Voice/Name [facility] Work Phone: 11-12-2014 Because of a physica l, mental, or emotional condition, do you have serious difficulty concentrating, remembering, or making decisions No 11/12/2014 8:16 AM EDT Jailyn Cabrera MA [facility] Clinical Notes 09-04-2020 to 04-08-2025 Telephone Encounter - Earline Blancas RN - 01/15/2025 8:43 AM EDTTelephone Encounter - Earline Blancas RN - 01/15/2025 8:43 AM EDTTelephone Encounter - Lorena Patino LPN - 01/08/2025 2:56 PM EDT Note Date & Type Note Facility 04-08-2025 Note HNO ID: [id number] Author: BRAULIO WHITNEY MD Service: ? Author Type: Physician Type: Progress Notes Filed: 04/08/2025 09:57 Note Text: The patient is an 84-year-old female with arthritis and GERD, presenting for follow-up of chronic low back pain. HPI Libia is an 84-year-old female with a history of chronic back pain, presenting for follow-up. Chronic Back Pain: - Recent injection by Dr. Dixon intended to last 3 months; pain returned after 2 weeks. - Post-injection, experienced headaches and bladder control issues for 2 weeks; both symptoms have resolved. - Dr. Dixon plans to administer additional injections for arthritis management. - Recent chiropractic treatment included laser therapy on legs and feet, x3 weeks, without relief. - Currently using a cane for mobility. - Taking tramadol, prescribed to take 0.5 tablet TID; reports minimal relief, increased dose to 2 tablets at bedtime without improvement. - Advised to withhold gabapentin when taking tramadol; currently taking gabapentin in the morning. - Severe leg pain necessitated taking Tylenol this morning. GERD: - Occasional heartburn, triggered by certain foods like popcorn. - Avoids spicy foods to manage symptoms. Depression: - Discontinued duloxetine. - Reports stable mood, supported by pet ownership and family involvement. MEDICATIONS: Current Outpatient Medications Medication Sig gabapentin (NEURONTIN) 100 mg capsule Take 1 capsule by mouth once daily for 90 days. traMADol (ULTRAM) 50 mg tablet Take one tablet at noon then two tablets in the evening omeprazole (PRILOSEC) 40 mg capsule Take 1 capsule by mouth once daily. pravastatin (PRAVACHOL) 40 mg tablet Take 1 tablet by mouth once daily. lisinopril-hydroCHLOROthiazide (ZESTORETIC) 10-12.5 mg per tablet Take 1 tablet by mouth every morning. latanoprost (XALATAN) 0.005 % ophthalmic solution Use 1 Drop in both eyes daily at bedtime. TO AFFECTED EYE(S) Blood Pressure Cuff - Home Use BLOOD PRESSURE CUFF FOR HOME USE. DX: LABILE BLOOD PRESSURE Calcium Carbonate-Vitamin D2 600 mg calcium- 200 unit tab Take 1 tablet by mouth once daily. No current facility-administered medications for this visit. ALLERGIES: ALLERGIES No Known Allergies PAST MEDICAL HISTORY Diagnosis Date Arthritis Arthropathy, unspecified, site unspecified Backache, unspecified CKD (chronic kidney disease) stage 3, GFR 30-59 ml/min ([facility]) 07/31/2018 Diverticulosis of colon (without mention of hemorrhage) Essential hypertension, benign Female stress incontinence mild Melanoma ([facility]) 09/03/2020 Right anterior proximal upper arm Nonspecific abnormal electrocardiogram (ECG) (EKG) PAC Other and unspecified hyperlipidemia Reactive depression 07/31/2018 Symptomatic menopausal or female climacteric states PAST SURGICAL HISTORY Procedure Laterality Date ABDOMINAL SURGERY HX APPENDECTOMY APPENDECTOMY HX CHOLECSTOT/CHOLECSTOST W/EXPL DRG/RMVL ST1 SPX COLONOSCOPY FLX DX W/COLLJ SPEC WHEN PFRMD 2001 Colonoscopy COLONOSCOPY FLX DX W/COLLJ SPEC WHEN PFRMD 01/05/2012 Colonoscopy COLONOSCOPY FLX DX W/COLLJ SPEC WHEN PFRMD 01/13/2021 DILATION AND CURETTAGE DXAND/THER NONOBSTETRIC Dilation AND curettage ESOPHAGOGASTRODUODENOSCOPY TRANSORAL DIAGNOSTIC 01/13/2021 EXC/DSTRJ LINGUAL TONSIL ANY METHOD SPX LIG/TRNSXJ FLP TUBE ABDL/VAG APPR UNI/BI Tubal ligation NEUROPLASTY AND/TRANSPOS MEDIAN NRV CARPAL TUNNE 06/08/2011 Carpal tunnel decomp, right PAST SURGICAL HISTORY OF 2007 removal growth between toes =left PAST SURGICAL HISTORY OF Multple myeloma's REVISE MEDIAN N/CARPAL TUNNEL SURG 06/28/2013 left CTR REVISE MEDIAN N/CARPAL TUNNEL SURG Left 01/29/2022 Left Carpal tunnel release with nerve wrap SALPINGO-OOPHORECTOMY COMPL/PRTL UNI/BI SPX 2003 Salpingo-oophorectomy SKIN BIOPSY HX TOTAL ABDOMINAL HYSTERECT W/WO RMVL TUBE OVARY 2003 Hysterectomy, ELLIOT VAGINAL HYSTERECTOMY FAMILY HISTORY Problem Relation Age of Onset Heart Mother Diabetes Mother Cancer Mother UTERUS Diabetes Father Heart Father Stroke Sister Cancer Maternal Grandmother UTERUS Colon Cancer Daughter SOCIAL HISTORY[1] Reviewed current medications, allergies, past medical history, surgical history, family history and social history today. REVIEW OF SYSTEMS Head: (-) headache Cardiovascular: (-) chest pain, (-) palpitations, (-) leg swelling Gastrointestinal: (+) heartburn Genitourinary: (+) nocturia, (-) urinary incontinence Musculoskeletal: (+) leg pain, (+) leg tenderness Neurological: (+) lightheadedness, (+) foot numbness, (-) dizziness Psychiatric: (-) depressed mood HEALTH MAINTENANCE: Reviewed health maintenance issues today and recommended the following in detail. Anxiety Screening due on 09/29/2024 LAB REVIEWED: VITALS: BP 130/68 Pulse 65 Temp 36 ?C (96.8 ?F) Resp 16 Wt 88.5 kg (195 lb 3.2 oz) SpO2 96% BMI 31.51 kg (more content not included)... [facility] 01-15-2025 Telephone encounter Note Patient requesting Pain Mgmt Consult order and information be faxed to Dr. Vickers's office in [place]. Faxed as requested. Pt to contact their office to schedule. Earline Balncas RN [facility] 01-15-2025 Miscellaneous Notes Patient requesting Pain Mgmt Consult order and information be faxed to Dr. Vickers's office in [place]. Faxed as requested. Pt to contact their office to schedule. Earline Blancas RN documented in this encounter [facility] 01-08-2025 Telephone encounter Note Called pt states does not want ortho asked nurse to cancel nurse cancelled doess not want pt she states wants Dr. Joseph to handle this faxed information over to him. [facility] 01-08-2025 Miscellaneous Notes Called pt states does not want ortho asked nurse to cancel nurse cancelled doess not want pt she states wants Dr. Joseph to handle this faxed information over to him. ----- Message from Lorena Patino LPN sent at 01/02/2025 11:19 AM EDT ----- Good morning... could you reach out to patient to update her on xray results showing mild osteoarthrosis bilateral knees, lumbar xray mild to moderate narrowing . We gave her a steroid taper. She already sees Dr Dixon for pain management of her neuropathy Left forearm pain, does she want us to send a note to him to see if he can manage her LE pain as well ? Or would she like an orthopedic consult? We can also try some PT. Thank you ----- Message ----- From: Romel, Sophie In Sent: 11/05/2024 6:17 AM EDT To: Zahida Perry APRN.MEASUREMENT ADVISOR Called pt gave information provided. She would like you to contact Dr. Stubbs. Good morning... could you reach out to patient to update her on xray results showing mild osteoarthrosis bilateral knees, lumbar xray mild to moderate narrowing . We gave her a steroid taper. She already sees Dr Dixon for pain management of her neuropathy Left forearm pain, does she want us to send a note to him to see if he can manage her LE pain as well ? Or would she like an orthopedic consult? We can also try some PT. Thank you Attempted to call pt line busy. Will try back in a few. documented in this encounter [facility] 01-08-2025 Telephone encounter Note ----- Message from Lorena Patino LPN sent at 01/02/2025 11:19 AM EDT ----- Good morning... could you reach out to patient to update her on xray results showing mild osteoarthrosis bilateral knees, lumbar xray mild to moderate narrowing . We gave her a steroid taper. She already sees Dr Dixon for pain management of her neuropathy Left forearm pain, does she want us to send a note to him to see if he can manage her LE pain as well ? Or would she like an orthopedic consult? We can also try some PT. Thank you ----- Message ----- From: Sophie Urena In Sent: 11/05/2024 6:17 AM EDT To: Zahida Perry APRN.MEASUREMENT ADVISOR [facility] 01-08-2025 Note HNO ID: [id number] Author: MICHAEL RUSSO PT Service: ? Author Type: Physical Therapist Type: Progress Notes Filed: 01/08/2025 11:36 Note Text: Episode Visit Count: 7 Therapist That Will Accept/Oversee The Plan Of Care: Michael Russo PT Start of Care Date: 11/13/24 Onset Date: 09/13/24 Plan of Care Certification Date: 12/11/24 Next Certification Due Date: 01/08/25 Patient Identified by Name and Date of : Yes REHABILITATION AND SPORTS THERAPY PHYSICAL THERAPY DISCONTINUANCE OF CARE PLAN OF CARE UPDATE: Assessment: Libia Najera is discontinued from Physical Therapy services due to maximal benefit. and Patient/Clinician mutual decision to discontinue current plan of care.. Patient was seen for 7 visits from Start of Care Date: 11/13/24 to 01/08/2025 and treatment included: Therapeutic exercise, Manual therapy, Patient/Family/Caregiver Education, and Body mechanics training. Updated: 12/11/24 and 01/08/25 Goals for Episode of Care: established 11/13/24 Patient reported outcome of physical function will increase T-score by a minimum 5 points. - Not MET Independent in home exercises. - MET Patient will decrease pain to 0/10 with functional activities to allow patient to improve ambulation, transfers, and standing tolerance for ADLs. - Not MET Restore pain-free lumbar ROM to WFL to allow for improved transfers and walking. - Not MET Stand / Walk without limitations, without pain/symptoms. - Not MET Patient will increase strength of core and postural muscles to WFL to allow for improved position tolerance for standing and walking. - Not MET Patient Goals: decrease pain and stay active - Not MET Classification Pain Mechanism Classification: Neuropathic Low Back Pain Classification: Symptom Modulation SUBJECTIVE: Pt reports that overall her symptoms are worse since starting therapy. She denies any increase in pain with PT completion and even reports temporary relief with traction. She reports that the relief from traction lasts 1.5 days. She reports compliance with HEP 3x day and that she enjoys the HEP. She reports that the traction helps the most but the relief is only temporary(1.5 days). She describes her symptoms as worse because her pain is now in both LEs instead of only one. She reports that some mornings her pain in LEs is so severe that she uses her FWW. . Pain: Pain Pain Level: 6 (less severe currently but 6/10 at worst this morning) Pain Location: Thigh - Right, Thigh - Left, Knee - Right, Calf - Right Description: Aching Frequency: Intermittent, Walking, Standing Post Treatment Pain Post Treatment Pain Level: No Change PROMIS Scales 01/08/2025 12/11/2024 11/13/2024 Higher is Better Phys Func - T Score 38 (moderate dysfunction) 41 (mild dysfunction) 39 (moderate dysfunction) Phys Func - Percentile 12 18 14 Self-Eff Symptom - T Score 42 (Average) 44 (Average) 43 (Average) Self-Eff Symptom - Percentile 21 27 24 Proxy-reported T-scores: mean of general population = 50. 5 points is clinically meaningfully difference Percentiles provide an indication of how the patient's score ranks in relation to the general population. Higher percentile rankings indicate better function/quality of life. 50th percentile is the average of the general population and indicates half of respondents had a worse score. OBJECTIVE MEASURES WITH LEVEL OF FUNCTION: Lumbar Spine AROM Lumbar Flexion: Normal Lumbar Extension: Major limitation Lumbar R Side-Bend: Normal Lumbar L Side-Bend: Normal Lumbar R Rotation: Minimal limitation Lumbar L Rotation: Minimal limitation Gait Gait Observation: antalgic TREATMENT: Therapeutic Exercise: 1: Re-assessment results were reviewed with pt and this information was used as rationale for d/c recommendations. Treatment options were discussed. 2: HEP was reviewed and continuation encouraged to tolerance. 3: Pt was encouraged to contact Dr. Dixon's office for scheduling of a pain management consult. 4: She was reminded to stop any exercise that causes increased pain. Skilled Intervention: Patient was educated in proper exercise technique and purpose for exercises. Skilled judgment was used in selection of appropriate interventions. Correct performance of therapeutic exercises was facilitated with verbal and visual cuing. Patient education as noted. Manual Therapy: Manual Traction: Manual lumbar belt traction with BLE elevated on stool with caudal pull to tolerance x12 minutes. Pt's symptoms monitored throughout. Skilled Intervention: Manual skills to improve joint mobility, ROM, and decrease pain. Utilized anatomy knowledge of the clinician, and assessment of patient's response to intervention. Billing Therapeutic Exercise Treatment Minutes: 28 Manual TherapyTreatment Minutes: 12 Skilled Treatment Time Minutes (timed and untimed codes): 40 Total Session Time (minutes): 40 Session Start Time : 10 (more content not included)... [facility] 01-08-2025 History of Present illness Narrative Images from the original note were not included. Episode Visit Count: 7 Therapist That Will Accept/Oversee The Plan Of Care: Michael Russo PT Start of Care Date: 11/13/24 Onset Date: 09/13/24 Plan of Care Certification Date: 12/11/24 Next Certification Due Date: 01/08/25 Patient Identified by Name and Date of : Yes REHABILITATION AND SPORTS THERAPY PHYSICAL THERAPY DISCONTINUANCE OF CARE PLAN OF CARE UPDATE: Assessment: Libia Najera is discontinued from Physical Therapy services due to maximal benefit. and Patient/Clinician mutual decision to discontinue current plan of care.. Patient was seen for 7 visits from Start of Care Date: 11/13/24 to 01/08/2025 and treatment included: Therapeutic exercise, Manual therapy, Patient/Family/Caregiver Education, and Body mechanics training. Updated: 12/11/24 and 01/08/25 Goals for Episode of Care: established 11/13/24 Patient reported outcome of physical function will increase T-score by a minimum 5 points. - Not MET Independent in home exercises. - MET Patient will decrease pain to 0/10 with functional activities to allow patient to improve ambulation, transfers, and standing tolerance for ADLs. - Not MET Restore pain-free lumbar ROM to WFL to allow for improved transfers and walking. - Not MET Stand / Walk without limitations, without pain/symptoms. - Not MET Patient will increase strength of core and postural muscles to WFL to allow for improved position tolerance for standing and walking. - Not MET Patient Goals: decrease pain and stay active - Not MET Classification Pain Mechanism Classification: Neuropathic Low Back Pain Classification: Symptom Modulation SUBJECTIVE: Pt reports that overall her symptoms are worse since starting therapy. She denies any increase in pain with PT completion and even reports temporary relief with traction. She reports that the relief from traction lasts 1.5 days. She reports compliance with HEP 3x day and that she enjoys the HEP. She reports that the traction helps the most but the relief is only temporary(1.5 days). She describes her symptoms as worse because her pain is now in both LEs instead of only one. She reports that some mornings her pain in LEs is so severe that she uses her FWW. . Pain: Pain Pain Level: 6 (less severe currently but 6/10 at worst this morning) Pain Location: Thigh - Right, Thigh - Left, Knee - Right, Calf - Right Description: Aching Frequency: Intermittent, Walking, Standing Post Treatment Pain Post Treatment Pain Level: No Change PROMIS Scales 01/08/2025 12/11/2024 11/13/2024 Higher is Better Phys Func - T Score 38 (moderate dysfunction) 41 (mild dysfunction) 39 (moderate dysfunction) Phys Func - Percentile 12 18 14 Self-Eff Symptom - T Score 42 (Average) 44 (Average) 43 (Average) Self-Eff Symptom - Percentile 21 27 24 Proxy-reported T-scores: mean of general population = 50. 5 points is clinically meaningfully difference Percentiles provide an indication of how the patient's score ranks in relation to the general population. Higher percentile rankings indicate better function/quality of life. 50th percentile is the average of the general population and indicates half of respondents had a worse score. OBJECTIVE MEASURES WITH LEVEL OF FUNCTION: Lumbar Spine AROM Lumbar Flexion: Normal Lumbar Extension: Major limitation Lumbar R Side-Bend: Normal Lumbar L Side-Bend: Normal Lumbar R Rotation: Minimal limitation Lumbar L Rotation: Minimal limitation Gait Gait Observation: antalgic TREATMENT: Therapeutic Exercise: 1: Re-assessment results were reviewed with pt and this information was used as rationale for d/c recommendations. Treatment options were discussed. 2: HEP was reviewed and continuation encouraged to tolerance. 3: Pt was encouraged to contact Dr. Dixon's office for scheduling of a pain management consult. 4: She was reminded to stop any exercise that causes increased pain. Skilled Intervention: Patient was educated in proper exercise technique and purpose for exercises. Skilled judgment was used in selection of appropriate interventions. Correct performance of therapeutic exercises was facilitated with verbal and visual cuing. Patient education as noted. Manual Therapy: Manual Traction: Manual lumbar belt traction with BLE elevated on stool with caudal pull to tolerance x12 minutes. Pt's symptoms monitored throughout. Skilled Intervention: Manual skills to improve joint mobility, ROM, and decrease pain. Utilized anatomy knowledge of the clinician, and assessment of patient's response to intervention. Billing Therapeutic Exercise Treatment Minutes: 28 Manual TherapyTreatment Minutes: 12 Skilled Treatment Time Minutes (timed and untimed codes): 40 Total Session Time (minutes): 40 Session Start Time : 1050 Session Stop Time : 1130 Michael Russo PT documented in this encounter [facility] 01-02-2025 Telephone encounter Note Called pt gave information provided. She would like you to contact Dr. Stubbs. [facility] 01-02-2025 Telephone encounter Note Good morning... could you reach out to patient to update her on xray results showing mild osteoarthrosis bilateral knees, lumbar xray mild to moderate narrowing . We gave her a steroid taper. She already sees Dr Dixon for pain management of her neuropathy Left forearm pain, does she want us to send a note to him to see if he can manage her LE pain as well ? Or would she like an orthopedic consult? We can also try some PT. Thank you [facility] 01-02-2025 Note HNO ID: [id number] Author: NINA MARLEY APRN.MEASUREMENT ADVISOR Service: ? Author Type: Nurse Practitioner Type: Progress Notes Filed: 01/02/2025 09:29 Note Text: Libia Najera is a 84 year old female here for a Medicare wellness visit. Medicare Health Risk Assessment General Health Fair Exercise: Minutes/Day 0 min Exercise: Days/Week On average, how many days per week do you engage in moderate to strenuous exercise (like a brisk walk)?: 0 days (but is very active.) Alcohol: Daily Use Never Alcohol: Drinks/Day Patient does not drink Alcohol: 6 or more drinks Never Feel off balance No Concerns: Teeth/Dentures No Concerns: Sexual function No Troubled by feelings Lonely Frequency: Eating healthy diet Nearly every day ADLs requiring help None of the above Safety precautions in home/vehicle Yes Smoke, vape, chews tobacco No Difficulty hearing No Difficulty seeing No Current Providers Specialists: Outside specialists seen: dermatology, eye doctor. Medical/Family history review Reviewed and updated problem list, medical/surgical/family/social history, medications, and allergies. Opioid use review Opioid Medications (last 90 days) No data to display Anxiety/Depression screening PHQ-9 Score: 5 (Mild Depression) Recommendation: no further intervention at this time Cognitive screening Mini Cog Score: 5 Cognitive screening reviewed and No further action needed (score 3-5). Functional Observation Was the patient's Timed Up AND Go test unsteady or >= 12 seconds? No Advance Care Planning Surrogate decision maker and/or advance care plan documented Cris Najera Measurements BP 124/70 Pulse 62 Resp 16 Wt 87.5 kg (193 lb) SpO2 96% BMI 31.15 kg/m? Vision Screening: Follows with optometry/ophthalmology Assessment/Plan Medicare annual wellness visit, subsequent (Z00.00) - Counseled on healthy diet and regular exercise - Fall avoidance information provided - Personalized prevention plan provided Additional Concerns The following concerns were also discussed with the patient: Recording using [employer] software for draft documentation of the visit was discussed with the patient/authorized inside outside sales representative; all questions welcomed and answered. Patient/authorized inside outside sales representative agreed to proceed Subjective Depression: - Reports feeling lonely and depressed most of the time. - Denies feeling bad about herself, poor appetite, overeating, or trouble concentrating. - Denies moving or speaking slowly, restlessness, or fidgeting. - Denies thoughts of self-harm or being better off . - Enjoys doing puzzles and word games to stay busy. - Has a cat that keeps her busy; wakes her up at 0500 every morning. 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 Back Pain: - Reports back pain with radiation to bilateral legs from knees to hips. - Pain management with Dr. Dixon; next appointment in February. - Taking gabapentin BID; reduced from TID due to fatigue. - Taking duloxetine 20 mg daily; last dose taken yesterday. - Taking Tylenol 2 tablets TID. - Denies saddle anesthesia or bowel/bladder incontinence. - Reports numbness in feet since onset of back pain. - Denies receiving injections for back pain. - MRI of the back performed last year. Constitutional: (+) fatigue Eyes: (-) visual difficulty Ears/Nose/Mouth/Throat: (-) hearing difficulty, (-) dental problems Gastrointestinal: (-) fecal incontinence Genitourinary: (-) urinary incontinence Musculoskeletal: (+) back pain, (+) bilateral leg pain, (+) generalized body aches, (+) limited ambulation Neurological: (+) bilateral foot numbness, (+) imbalance Psychiatric: (+) loneliness, (+) depressed mood, (+) suicidal ideation, (-) low self-esteem, (-) concentration difficulty, (-) psychomotor changes Objective BP 124/70 Pulse 62 Resp 16 Wt 87.5 kg (193 lb) SpO2 96% BMI 31.15 kg/m? GENERAL: NAD, alert and oriented. SKIN: Unremarkable, no rash or skin lesions. HEAD: Normocephalic. EYES: EOMI, conjunctiva clear. LUNGS: Clear to auscultation bilaterally, no wheezes/rhonchi/rales. HEART: Regular rate and rhythm, no murmurs. No ectopy. EXTREMITIES: Normal, no deformities, no skin discoloration, no edema. NEURO: Awake, alert and oriented x3, cranial nerves II-XII grossly intact, normal gait, no involuntary motions. Back: midline lower back pain. Assessment AND Plan 1. Lumbar spondylosis (M47.816) - Chronic back pain with radiation to bilateral lower extremities from knees to hips; numbness in feet noted. - Previous MRI of the lumbar spine performed last year. - Currently taking gabapentin 100 mg PO BID and Tylenol 650 mg PO TID. - Increased duloxetine dosage from 20 mg to 30 mg PO daily; prescription sent to [facility]. - Referral to Dr. Dixon at Pain Management for further evaluation and potential interventional tr (more content not included)... [facility] 01-02-2025 History of Present illness Narrative Images from the original note were not included. Libia Najera is a 84 year old female here for a Medicare wellness visit. Medicare Health Risk Assessment General Health Fair Exercise: Minutes/Day 0 min Exercise: Days/Week On average, how many days per week do you engage in moderate to strenuous exercise (like a brisk walk)?: 0 days (but is very active.) Alcohol: Daily Use Never Alcohol: Drinks/Day Patient does not drink Alcohol: 6 or more drinks Never Feel off balance No Concerns: Teeth/Dentures No Concerns: Sexual function No Troubled by feelings Lonely Frequency: Eating healthy diet Nearly every day ADLs requiring help None of the above Safety precautions in home/vehicle Yes Smoke, vape, chews tobacco No Difficulty hearing No Difficulty seeing No Current Providers Specialists: Outside specialists seen: dermatology, eye doctor. Medical/Family history review Reviewed and updated problem list, medical/surgical/family/social history, medications, and allergies. Opioid use review Opioid Medications (last 90 days) No data to display Anxiety/Depression screening PHQ-9 Score: 5 (Mild Depression) Recommendation: no further intervention at this time Cognitive screening Mini Cog Score: 5 Cognitive screening reviewed and No further action needed (score 3-5). Functional Observation Was the patient's Timed Up & Go test unsteady or >= 12 seconds? No Advance Care Planning Surrogate decision maker and/or advance care plan documented Daughter - Freddy Najera Measurements BP 124/70 Pulse 62 Resp 16 Wt 87.5 kg (193 lb) SpO2 96% BMI 31.15 kg/m Vision Screening: Follows with optometry/ophthalmology Assessment/Plan Medicare annual wellness visit, subsequent (00.00) - Counseled on healthy diet and regular exercise - Fall avoidance information provided - Personalized prevention plan provided Additional Concerns The following concerns were also discussed with the patient: Recording using [employer] software for draft documentation of the visit was discussed with the patient/authorized inside outside sales representative; all questions welcomed and answered. Patient/authorized inside outside sales representative agreed to proceed Subjective Depression: - Reports feeling lonely and depressed most of the time. - Denies feeling bad about herself, poor appetite, overeating, or trouble concentrating. - Denies moving or speaking slowly, restlessness, or fidgeting. - Denies thoughts of self-harm or being better off . - Enjoys doing puzzles and word games to stay busy. - Has a cat that keeps her busy; wakes her up at 0500 every morning. 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 Back Pain: - Reports back pain with radiation to bilateral legs from knees to hips. - Pain management with Dr. Dixon; next appointment in February. - Taking gabapentin BID; reduced from TID due to fatigue. - Taking duloxetine 20 mg daily; last dose taken yesterday. - Taking Tylenol 2 tablets TID. - Denies saddle anesthesia or bowel/bladder incontinence. - Reports numbness in feet since onset of back pain. - Denies receiving injections for back pain. - MRI of the back performed last year. Constitutional: (+) fatigue Eyes: (-) visual difficulty Ears/Nose/Mouth/Throat: (-) hearing difficulty, (-) dental problems Gastrointestinal: (-) fecal incontinence Genitourinary: (-) urinary incontinence Musculoskeletal: (+) back pain, (+) bilateral leg pain, (+) generalized body aches, (+) limited ambulation Neurological: (+) bilateral foot numbness, (+) imbalance Psychiatric: (+) loneliness, (+) depressed mood, (+) suicidal ideation, (-) low self-esteem, (-) concentration difficulty, (-) psychomotor changes Objective BP 124/70 Pulse 62 Resp 16 Wt 87.5 kg (193 lb) SpO2 96% BMI 31.15 kg/m GENERAL: NAD, alert and oriented. SKIN: Unremarkable, no rash or skin lesions. HEAD: Normocephalic. EYES: EOMI, conjunctiva clear. LUNGS: Clear to auscultation bilaterally, no wheezes/rhonchi/rales. HEART: Regular rate and rhythm, no murmurs. No ectopy. EXTREMITIES: Normal, no deformities, no skin discoloration, no edema. NEURO: Awake, alert and oriented x3, cranial nerves II-XII grossly intact, normal gait, no involuntary motions. Back: midline lower back pain. Assessment & Plan 1. Lumbar spondylosis (M47.816) - Chronic back pain with radiation to bilateral lower extremities from knees to hips; numbness in feet noted. - Previous MRI of the lumbar spine performed last year. - Currently taking gabapentin 100 mg PO BID and Tylenol 650 mg PO TID. - Increased duloxetine dosage from 20 mg to 30 mg PO daily; prescription sent to [facility]. - Referral to Dr. Dixon at [facility] Management for further evaluation and potential interventional treatments such as epidural steroid injections. She is currently following with Dr. Dixon for other indications. 2. Depression, unspecified depression type (F32.A) - Reports feeling depressed most days, with associated loneliness. - No current suicidal ideation. - Continue monitoring mental health status; follow-up as needed. Hopefully duloxetine will be helpful with this, as well. Discussed treatment plan and patient voices understanding. Patient's questions answered appropriately. Medications and potential side effects were discussed and patient voices understanding. Return to the office as scheduled or as needed for worsening/no improvement. Nina Marley APRN.MEASUREMENT ADVISOR documented in this encounter [facility] 01-02-2025 Instructions Nina Marley APRN.MEASUREMENT ADVISOR - 01/02/2025 8:15 AM EDT Increase the duloxetine to 30 mg daily. A new script was sent to the pharmacy. We'll fax a new referral to pain management for the back to see if Dr. Dixon can help. Screening schedule The following prevention plan is recommended: Medicare Advantage Annual Wellness Visit Never done Depression Screening due on 09/29/2024 Anxiety Screening due on 09/29/2024 WHAT YOU CAN DO TO PREVENT FALLS Many falls can be prevented. By making some changes, you can lower your chances of falling. Four things YOU can do to prevent falls for you* and your caregiver 1. Begin a regular exercise program Exercise is one of the most important ways to lower your chances of falling. It makes you stronger and helps you feel better. Exercises that improve balance and coordination (like Terrence Chi) are the most helpful. Lack of exercise leads to weakness and increases your chances of falling. Ask your doctor or health care provider about the best type of exercise program for you. 2. Have your health care provider review your medicines Have your doctor or pharmacist review all the medicines you take, even [id number] medicines. As you get older, the way medicines work in your body can change. Some medicines, or combinations of medicines, can make you sleepy or dizzy and can cause you to fall. 3. Have your vision checked Have your eyes checked by an eye doctor at least once a year. You may be wearing the wrong glasses or have a condition like glaucoma or cataracts that limits your vision. Poor vision can increase your chances of falling. 4. Make your home safer About half of all falls happen at home. To make your home safer: Remove things you can trip over (like papers, books, clothes, and shoes) from stairs and places where you walk. Remove small throw rugs or use double-sided tape to keep the rugs from slipping. Keep items you use often in cabinets you can reach easily without using a step stool. Have grab bars put in next to your toilet and in the tub or shower. Use non-slip mats in the bathtub and on shower floors. Improve the lighting in your home. As you get older, you need brighter lights to see well. Hang light-weight curtains or shades to reduce glare. Have handrails and lights put in on all staircases. Wear shoes both inside and outside the house. Avoid going barefoot or wearing slippers. For more information, contact: Centers for Disease Control and Prevention www.cdc.gov/injury * This information may not apply if you have certain medical conditions. documented in this encounter [facility] 01-01-2025 Note HNO ID: [id number] Author: WALKER MILES PT Service: ? Author Type: Physical Therapist Type: Progress Notes Filed: 01/02/2025 07:02 Note Text: Episode Visit Count: 6 Therapist That Will Accept/Oversee The Plan Of Care: Michael Russo PT Start of Care Date: 11/13/24 Onset Date: 09/13/24 Plan of Care Certification Date: 12/11/24 Next Certification Due Date: 01/08/25 Patient Identified by Name and Date of : Yes REHABILITATION AND SPORTS THERAPY PHYSICAL THERAPY TREATMENT NOTE ASSESSMENT: Libia Najera tolerated the session with fatigue, decreased symptoms, and expected muscle soreness. She demonstrated improvements in low back pain. The patient will continue to benefit from ongoing skilled physical therapy to progress toward set goals. PLAN FOR NEXT VISIT: PN. SUBJECTIVE: Pt presents with a cane today. States that the past couple of mornings shes had to use the walker at home due to back and leg pain. No reason why her back flared up. Sometimes acts up more when it is going to rain. Pt has a lidocane patch on her back today. HEP has not changed her increased symptoms. Pt stated that she felt okay after last session. Pain: Pain Pain Level: 6 Pain Location: Thigh - Right, Low Back/Lumbar Spine- Midline, Thigh - Left, Low Back/Lumbar Spine - Right, Low Back/Lumbar Spine - Left Post Treatment Pain Post Treatment Pain Level: Better Post Treatment Symptoms: Back was better but legs still hurt OBJECTIVE MEASURES WITH LEVEL OF FUNCTION: Forward flexed posture with walking this visit TREATMENT: Therapeutic Exercise: 1: supine LTR 2x10 2: supine B SKTC 3x30 seconds 3: supine DKTC 3x30 seconds 4: crunches in small range 2x10 5: *Seated, repeated lumbar flexion 2x10 Skilled Intervention: Patient was educated in proper exercise technique and purpose for exercises. Reviewed and educated patient on additions/changes for home exercise program as above (*). Skilled judgment was used in selection of appropriate interventions. Correct performance of therapeutic exercises was facilitated with verbal and visual cuing. Manual Therapy: Manual Traction: Manual lumbar belt traction with BLE elevated on stool with caudal pull to tolerance x 15 minutes. Pt's symptoms monitored throughout. Skilled Intervention: Manual skills to improve joint mobility, ROM, and decrease pain. Utilized anatomy knowledge of the clinician, and assessment of patient's response to intervention. Billing Therapeutic Exercise Treatment Minutes: 28 Manual TherapyTreatment Minutes: 15 Skilled Treatment Time Minutes (timed and untimed codes): 43 Total Session Time (minutes): 43 Session Start Time : 1355 Session Stop Time : 1438 CHRIS Georges, PT, DPT. [facility] 01-01-2025 History of Present illness Narrative Episode Visit Count: 6 Therapist That Will Accept/Oversee The Plan Of Care: Michael Russo PT Start of Care Date: 11/13/24 Onset Date: 09/13/24 Plan of Care Certification Date: 12/11/24 Next Certification Due Date: 01/08/25 Patient Identified by Name and Date of : Yes REHABILITATION AND SPORTS THERAPY PHYSICAL THERAPY TREATMENT NOTE ASSESSMENT: Libia Najera tolerated the session with fatigue, decreased symptoms, and expected muscle soreness. She demonstrated improvements in low back pain. The patient will continue to benefit from ongoing skilled physical therapy to progress toward set goals. PLAN FOR NEXT VISIT: PN. SUBJECTIVE: Pt presents with a cane today. States that the past couple of mornings shes had to use the walker at home due to back and leg pain. No reason why her back flared up. Sometimes acts up more when it is going to rain. Pt has a lidocane patch on her back today. HEP has not changed her increased symptoms. Pt stated that she felt okay after last session. Pain: Pain Pain Level: 6 Pain Location: Thigh - Right, Low Back/Lumbar Spine- Midline, Thigh - Left, Low Back/Lumbar Spine - Right, Low Back/Lumbar Spine - Left Post Treatment Pain Post Treatment Pain Level: Better Post Treatment Symptoms: Back was better but legs still hurt OBJECTIVE MEASURES WITH LEVEL OF FUNCTION: Forward flexed posture with walking this visit TREATMENT: Therapeutic Exercise: 1: supine LTR 2x10 2: supine B SKTC 3x30 seconds 3: supine DKTC 3x30 seconds 4: crunches in small range 2x10 5: *Seated, repeated lumbar flexion 2x10 Skilled Intervention: Patient was educated in proper exercise technique and purpose for exercises. Reviewed and educated patient on additions/changes for home exercise program as above (*). Skilled judgment was used in selection of appropriate interventions. Correct performance of therapeutic exercises was facilitated with verbal and visual cuing. Manual Therapy: Manual Traction: Manual lumbar belt traction with BLE elevated on stool with caudal pull to tolerance x 15 minutes. Pt's symptoms monitored throughout. Skilled Intervention: Manual skills to improve joint mobility, ROM, and decrease pain. Utilized anatomy knowledge of the clinician, and assessment of patient's response to intervention. Billing Therapeutic Exercise Treatment Minutes: 28 Manual TherapyTreatment Minutes: 15 Skilled Treatment Time Minutes (timed and untimed codes): 43 Total Session Time (minutes): 43 Session Start Time : 1355 Session Stop Time : 1438 Anusha KashuCHRIS cotton, PT, DPT. documented in this encounter [facility] 12-25-2024 History of Present illness Narrative Program_ID:[id number] Access Code: [email or web address] URL: [email or web address] Date: 12-25-2024 Prepared By: Michael Russo Program Notes Exercises - Supine Lower Trunk Rotation - 2-3 x daily - 7 x weekly - 2 sets - 10 reps - Hooklying Single Knee to Chest Stretch - 2-3 x daily - 7 x weekly - sets - 3 reps - Supine Double Knee to Chest Modified - 2-3 x daily - 7 x weekly - sets - 3 reps - Supine Transversus Abdominis Bracing - Hands on Ground - 3 x daily - 7 x weekly - 2 sets - 10 reps - Curl Up with Arms Crossed - 2 x daily - 7 x weekly - 2 sets - 10 reps - Supine March with Posterior Pelvic Tilt - 2 x daily - 7 x weekly - 2 sets - 10 reps Episode Visit Count: 5 Therapist That Will Accept/Oversee The Plan Of Care: Michael Russo PT Start of Care Date: 11/13/24 Onset Date: 09/13/24 Plan of Care Certification Date: 12/11/24 Next Certification Due Date: 01/08/25 Patient Identified by Name and Date of : Yes REHABILITATION AND SPORTS THERAPY PHYSICAL THERAPY TREATMENT NOTE ASSESSMENT: Libai Najera tolerated the session with fatigue and decreased symptoms. She demonstrated improvements in low back pain. The patient will continue to benefit from ongoing skilled physical therapy to progress toward set goals. PLAN FOR NEXT VISIT: Asses response to PPT with PERCY antonio. SUBJECTIVE: Pt reports that her back is unchanged.Her back felt good after last session, but then flared up after she had to mow. 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 Pain: Pain Pain Level: 4 Pain Location: Thigh - Right, Low Back/Lumbar Spine- Midline Post Treatment Pain Post Treatment Pain Level: Better OBJECTIVE MEASURES WITH LEVEL OF FUNCTION: Good seated posture. TREATMENT: Therapeutic Exercise: 1: supine LTR 2x10 2: supine B SKTC 3x30 seconds 3: supine DKTC 3x30 seconds 4: crunches in small range 2x10 5: supine posterior pelvic tilts 2x10 6: supine PPT with alt marching 2x10 B 7: Seated GTB Pallof's Press 2x10 each direction Skilled Intervention: Patient was educated in proper exercise technique and purpose for exercises. Reviewed and educated patient on additions/changes for home exercise program as above (*). Skilled judgment was used in selection of appropriate interventions. Provided written instruction for home exercise program to facilitate proper performance and compliance. Correct performance of therapeutic exercises was facilitated with verbal and visual cuing. Manual Therapy: Manual Traction: Manual lumbar belt traction with BLE elevated on stool with caudal pull to tolerance x 10 minutes. Pt's symptoms monitored throughout. Skilled Intervention: Manual skills to improve joint mobility, ROM, and decrease pain. Utilized anatomy knowledge of the clinician, and assessment of patient's response to intervention. Billing Therapeutic Exercise Treatment Minutes: 31 Manual TherapyTreatment Minutes: 10 Skilled Treatment Time Minutes (timed and untimed codes): 41 Total Session Time (minutes): 41 Session Start Time : 1403 Session Stop Time : 1444 CHRIS Georges PT, DPT. documented in this encounter [facility] 12-25-2024 Note HNO ID: [id number] Author: WALKER MILES PT Service: ? Author Type: Physical Therapist Type: Progress Notes Filed: 12/26/2024 07:53 Note Text: Episode Visit Count: 5 Therapist That Will Accept/Oversee The Plan Of Care: Michael Russo PT Start of Care Date: 11/13/24 Onset Date: 09/13/24 Plan of Care Certification Date: 12/11/24 Next Certification Due Date: 01/08/25 Patient Identified by Name and Date of : Yes REHABILITATION AND SPORTS THERAPY PHYSICAL THERAPY TREATMENT NOTE ASSESSMENT: Libia Najera tolerated the session with fatigue and decreased symptoms. She demonstrated improvements in low back pain. The patient will continue to benefit from ongoing skilled physical therapy to progress toward set goals. PLAN FOR NEXT VISIT: Asses response to PPT with LE marching. SUBJECTIVE: Pt reports that her back is unchanged.Her back felt good after last session, but then flared up after she had to mow. 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 Pain: Pain Pain Level: 4 Pain Location: Thigh - Right, Low Back/Lumbar Spine- Midline Post Treatment Pain Post Treatment Pain Level: Better OBJECTIVE MEASURES WITH LEVEL OF FUNCTION: Good seated posture. TREATMENT: Therapeutic Exercise: 1: supine LTR 2x10 2: supine B SKTC 3x30 seconds 3: supine DKTC 3x30 seconds 4: crunches in small range 2x10 5: supine posterior pelvic tilts 2x10 6: supine PPT with alt marching 2x10 B 7: Seated GTB Pallof's Press 2x10 each direction Skilled Intervention: Patient was educated in proper exercise technique and purpose for exercises. Reviewed and educated patient on additions/changes for home exercise program as above (*). Skilled judgment was used in selection of appropriate interventions. Provided written instruction for home exercise program to facilitate proper performance and compliance. Correct performance of therapeutic exercises was facilitated with verbal and visual cuing. Manual Therapy: Manual Traction: Manual lumbar belt traction with BLE elevated on stool with caudal pull to tolerance x 10 minutes. Pt's symptoms monitored throughout. Skilled Intervention: Manual skills to improve joint mobility, ROM, and decrease pain. Utilized anatomy knowledge of the clinician, and assessment of patient's response to intervention. Billing Therapeutic Exercise Treatment Minutes: 31 Manual TherapyTreatment Minutes: 10 Skilled Treatment Time Minutes (timed and untimed codes): 41 Total Session Time (minutes): 41 Session Start Time : 1403 Session Stop Time : 1444 CHRIS Georges, PT, DPT. [facility] 12-18-2024 Note HNO ID: [id number] Author: MICHAEL RUSSO PT Service: ? Author Type: Physical Therapist Type: Progress Notes Filed: 12/18/2024 15:39 Note Text: Episode Visit Count: 4 Therapist That Will Accept/Oversee The Plan Of Care: Michael Russo PT Start of Care Date: 11/13/24 Onset Date: 09/13/24 Plan of Care Certification Date: 12/11/24 Next Certification Due Date: 01/08/25 Patient Identified by Name and Date of : Yes REHABILITATION AND SPORTS THERAPY PHYSICAL THERAPY TREATMENT NOTE ASSESSMENT: Libia M Reinaldo tolerated the session with fatigue and no issues. She demonstrated improvements in tolerance to TA activation with decreased back support. The patient will continue to benefit from ongoing skilled physical therapy to progress toward set goals. PLAN FOR NEXT VISIT: Continue with core strengthening in sitting and supine. Manual traction prn. SUBJECTIVE: Pt reports that her back is pretty good. Pt states that the traction helps. Pt states that Lidocaine patches have been helpful . Pt felt good after last session without use of SciFit for warm up. Pain: Pain Pain Level: 0 Pain Location: Thigh - Right Post Treatment Pain Post Treatment Pain Level: No Change OBJECTIVE MEASURES WITH LEVEL OF FUNCTION: Good form with sustained PPT. TREATMENT: Therapeutic Exercise: 1: supine LTR 2x10 2: supine B SKTC 3x30 seconds 3: supine DKTC 3x30 seconds 4: crunches in small range 2x10 5: supine TA activation via shoulder extension 2 second holds 2x10 6: supine posterior pelvic tilts 2x10 7: supine PPT with alt toe taps 3x5 B 8: Seated TA activation 2x10 with 2 second holds 9: Seated GTB perturbations 2x15 front, left, and right Skilled Intervention: Patient was educated in proper exercise technique and purpose for exercises. Skilled judgment was used in selection of appropriate interventions. Correct performance of therapeutic exercises was facilitated with verbal and visual cuing. Manual Therapy: Manual Traction: Manual lumbar belt traction with BLE elevated on stool with caudal pull to tolerance x 10 minutes. Pt's symptoms monitored throughout. Skilled Intervention: Manual skills to improve joint mobility, ROM, and decrease pain. Utilized anatomy knowledge of the clinician, and assessment of patient's response to intervention. Billing Therapeutic Exercise Treatment Minutes: 31 Manual TherapyTreatment Minutes: 10 Skilled Treatment Time Minutes (timed and untimed codes): 41 Total Session Time (minutes): 41 Session Start Time : 1357 Session Stop Time : 1438 Anusha Martins, DEPOT MANAGER Michael Russo PT [facility] 12-18-2024 History of Present illness Narrative Episode Visit Count: 4 Therapist That Will Accept/Oversee The Plan Of Care: Michael Russo PT Start of Care Date: 11/13/24 Onset Date: 09/13/24 Plan of Care Certification Date: 12/11/24 Next Certification Due Date: 01/08/25 Patient Identified by Name and Date of : Yes REHABILITATION AND SPORTS THERAPY PHYSICAL THERAPY TREATMENT NOTE ASSESSMENT: Libia Najera tolerated the session with fatigue and no issues. She demonstrated improvements in tolerance to TA activation with decreased back support. The patient will continue to benefit from ongoing skilled physical therapy to progress toward set goals. PLAN FOR NEXT VISIT: Continue with core strengthening in sitting and supine. Manual traction prn. SUBJECTIVE: Pt reports that her back is pretty good. Pt states that the traction helps. Pt states that Lidocaine patches have been helpful . Pt felt good after last session without use of SciFit for warm up. Pain: Pain Pain Level: 0 Pain Location: Thigh - Right Post Treatment Pain Post Treatment Pain Level: No Change OBJECTIVE MEASURES WITH LEVEL OF FUNCTION: Good form with sustained PPT. TREATMENT: Therapeutic Exercise: 1: supine LTR 2x10 2: supine B SKTC 3x30 seconds 3: supine DKTC 3x30 seconds 4: crunches in small range 2x10 5: supine TA activation via shoulder extension 2 second holds 2x10 6: supine posterior pelvic tilts 2x10 7: supine PPT with alt toe taps 3x5 B 8: Seated TA activation 2x10 with 2 second holds 9: Seated GTB perturbations 2x15 front, left, and right Skilled Intervention: Patient was educated in proper exercise technique and purpose for exercises. Skilled judgment was used in selection of appropriate interventions. Correct performance of therapeutic exercises was facilitated with verbal and visual cuing. Manual Therapy: Manual Traction: Manual lumbar belt traction with BLE elevated on stool with caudal pull to tolerance x 10 minutes. Pt's symptoms monitored throughout. Skilled Intervention: Manual skills to improve joint mobility, ROM, and decrease pain. Utilized anatomy knowledge of the clinician, and assessment of patient's response to intervention. Billing Therapeutic Exercise Treatment Minutes: 31 Manual TherapyTreatment Minutes: 10 Skilled Treatment Time Minutes (timed and untimed codes): 41 Total Session Time (minutes): 41 Session Start Time : 1357 Session Stop Time : 1438 CHRIS Georges PT documented in this encounter [facility] 12-11-2024 Note HNO ID: [id number] Author: MICHAEL RUSSO PT Service: ? Author Type: Physical Therapist Type: Progress Notes Filed: 12/11/2024 14:45 Note Text: Episode Visit Count: 3 Therapist That Will Accept/Oversee The Plan Of Care: Michael Russo PT Start of Care Date: 11/13/24 Onset Date: 09/13/24 Plan of Care Certification Date: 12/11/24 Next Certification Due Date: 01/08/25 Patient Identified by Name and Date of : Yes REHABILITATION AND SPORTS THERAPY PHYSICAL THERAPY PROGRESS REPORT PLAN OF CARE UPDATE: Assessment: Libia Najera demonstrates minimal improvement in exercise tolerance and pain. The patient has progressed toward goals. Patient continues to present with impairments in ADL's, gait, independence in exercise, overall function, patient reported outcome measures, range of motion, strength, and symptom management that interfere with walking, stair negotiation, rising from a chair . Current prognosis is Good due to: current objective clinical presentation, good overall health status, good support system/ coping skills. The patient will benefit from continued skilled therapy services to meet the updated goals for this plan of care as noted below. Updated: 12/11/24 Goals for Episode of Care: established 11/13/24 Patient reported outcome of physical function will increase T-score by a minimum 5 points. - Partially MET, will continue Independent in home exercises. - MET, will continue and progress to tolerance Patient will decrease pain to 0/10 with functional activities to allow patient to improve ambulation, transfers, and standing tolerance for ADLs. - Partially MET, will continue Restore pain-free lumbar ROM to WFL to allow for improved transfers and walking. - Not MET, will continue Stand / Walk without limitations, without pain/symptoms. - Not MET, will continue Patient will increase strength of core and postural muscles to WFL to allow for improved position tolerance for standing and walking. - Not MET, will continue Patient Goals: decrease pain and stay active - Not MET, will continue Time Frame for Goals and Treatment : 01/08/25 Patient Goals: decrease pain and stay active Planned Interventions, Frequency, and Duration: 1x/week, 4 weeks Total Number of Visits Planned: 4 Patient to be seen for Therapeutic exercise (97902), Manual therapy (13767), Therapeutic activities (29434), Self-fci management (66759), Patient/Family/Caregiver Education, Body Mechanics Training PLAN FOR NEXT VISIT: Review, correct and progress HEP to tolerance. Continue with postural stretching and strengthening with flexion directional preference. Continue manual lumbar belt traction prn. Avoid WBing trunk flexion completely. Classification Pain Mechanism Classification: Neuropathic Low Back Pain Classification: Symptom Modulation SUBJECTIVE: Pt reports that overall her symptoms are unchanged. She reports compliance with HEP 3x day without any problems or difficulty. She reports that the day after last session, she developed increased pain in R LE. She reports seeing her PCP office and received several medications. She feels that the lidocaine patch helps and currently she is pain-free because she has a patch on. Overall she denies any changes in walking, standing or transfer tolerance. She feels that the traction last session helped some. She feels that her current symptoms have decreased to the pre-flare up level.. Patient Goals: decrease pain and stay active Functional Limitations: walking, stair negotiation, rising from a chair Prior Level of Function: Independent without limitations Intake Information: Prescription present Previous Treatment: Steroids , NSAIDs Falls Interview: Fall with injury in the last year, No positive findings with falls interview Falls Intervention: Instructed patient on safety and use of assistive device and awareness in regards to falls prevention. Pain: Pain Pain Level: 0 Pain Location: Thigh - Right Description: (no pain, it feels good) Frequency: Intermittent, Walking, Standing Post Treatment Pain Post Treatment Pain Level: No Change PROMIS Scales 12/11/2024 11/13/2024 Higher is Better Phys Func - T Score 41 (mild dysfunction) 39 (moderate dysfunction) Phys Func - Percentile 18 14 Self-Eff Symptom - T Score 44 (Average) 43 (Average) Self-Eff Symptom - Percentile 27 24 Proxy-reported T-scores: mean of general population = 50. 5 points is clinically meaningfully difference Percentiles provide an indication of how the patient's score ranks in relation to the general population. Higher percentile rankings indicate better function/quality of life. 50th percentile is the average of the general population and indicates half of respondents had a worse score. OBJECTIVE MEASURES WITH LEVEL OF FUNCTION: Lumbar Spine AROM Lumbar Flexion: Normal Lumbar Extension: Major limitation Lumbar R Side-Bend: Normal (more content not included)... [facility] 12-11-2024 History of Present illness Narrative Images from the original note were not included. Episode Visit Count: 3 Therapist That Will Accept/Oversee The Plan Of Care: Michael Russo PT Start of Care Date: 11/13/24 Onset Date: 09/13/24 Plan of Care Certification Date: 12/11/24 Next Certification Due Date: 01/08/25 Patient Identified by Name and Date of : Yes REHABILITATION AND SPORTS THERAPY PHYSICAL THERAPY PROGRESS REPORT PLAN OF CARE UPDATE: Assessment: Libia Najera demonstrates minimal improvement in exercise tolerance and pain. The patient has progressed toward goals. Patient continues to present with impairments in ADL's, gait, independence in exercise, overall function, patient reported outcome measures, range of motion, strength, and symptom management that interfere with walking, stair negotiation, rising from a chair . Current prognosis is Good due to: current objective clinical presentation, good overall health status, good support system/ coping skills. The patient will benefit from continued skilled therapy services to meet the updated goals for this plan of care as noted below. Updated: 12/11/24 Goals for Episode of Care: established 11/13/24 Patient reported outcome of physical function will increase T-score by a minimum 5 points. - Partially MET, will continue Independent in home exercises. - MET, will continue and progress to tolerance Patient will decrease pain to 0/10 with functional activities to allow patient to improve ambulation, transfers, and standing tolerance for ADLs. - Partially MET, will continue Restore pain-free lumbar ROM to WFL to allow for improved transfers and walking. - Not MET, will continue Stand / Walk without limitations, without pain/symptoms. - Not MET, will continue Patient will increase strength of core and postural muscles to WFL to allow for improved position tolerance for standing and walking. - Not MET, will continue Patient Goals: decrease pain and stay active - Not MET, will continue Time Frame for Goals and Treatment : 01/08/25 Patient Goals: decrease pain and stay active Planned Interventions, Frequency, and Duration: 1x/week, 4 weeks Total Number of Visits Planned: 4 Patient to be seen for Therapeutic exercise (57665), Manual therapy (25877), Therapeutic activities (43165), Self-fci management (21662), Patient/Family/Caregiver Education, Body Mechanics Training PLAN FOR NEXT VISIT: Review, correct and progress HEP to tolerance. Continue with postural stretching and strengthening with flexion directional preference. Continue manual lumbar belt traction prn. Avoid WBing trunk flexion completely. Classification Pain Mechanism Classification: Neuropathic Low Back Pain Classification: Symptom Modulation SUBJECTIVE: Pt reports that overall her symptoms are unchanged. She reports compliance with HEP 3x day without any problems or difficulty. She reports that the day after last session, she developed increased pain in R LE. She reports seeing her PCP office and received several medications. She feels that the lidocaine patch helps and currently she is pain-free because she has a patch on. Overall she denies any changes in walking, standing or transfer tolerance. She feels that the traction last session helped some. She feels that her current symptoms have decreased to the pre-flare up level.. Patient Goals: decrease pain and stay active Functional Limitations: walking, stair negotiation, rising from a chair Prior Level of Function: Independent without limitations Intake Information: Prescription present Previous Treatment: Steroids , NSAIDs Falls Interview: Fall with injury in the last year, No positive findings with falls interview Falls Intervention: Instructed patient on safety and use of assistive device and awareness in regards to falls prevention. Pain: Pain Pain Level: 0 Pain Location: Thigh - Right Description: (no pain, it feels good) Frequency: Intermittent, Walking, Standing Post Treatment Pain Post Treatment Pain Level: No Change PROMIS Scales 12/11/2024 11/13/2024 Higher is Better Phys Func - T Score 41 (mild dysfunction) 39 (moderate dysfunction) Phys Func - Percentile 18 14 Self-Eff Symptom - T Score 44 (Average) 43 (Average) Self-Eff Symptom - Percentile 27 24 Proxy-reported T-scores: mean of general population = 50. 5 points is clinically meaningfully difference Percentiles provide an indication of how the patient's score ranks in relation to the general population. Higher percentile rankings indicate better function/quality of life. 50th percentile is the average of the general population and indicates half of respondents had a worse score. OBJECTIVE MEASURES WITH LEVEL OF FUNCTION: Lumbar Spine AROM Lumbar Flexion: Normal Lumbar Extension: Major limitation Lumbar R Side-Bend: Normal Lumbar L Side-Bend: Normal Lumbar R Rotation: Minimal limitation Lumbar L Rotation: Minimal limitation LE Strength Trunk Strength: Not improved yet TREATMENT: Therapeutic Exercise: 1: [employer] StepOne not completed today to see if this was cause of her increased symptoms last session. 2: supine LTR 2x10 3: supine B SKTC 3x30 seconds 4: supine DKTC 3x30 seconds 5: *supine TA activation via shoulder extension 2 second holds 2x10 6: *crunches in small range 2x10 7: supine posterior pelvic tilts 2x10 8: HEP was reviewed and continuation encouraged as long as HEP completion does not cause increaesd pain. Skilled Intervention: Patient was educated in proper exercise technique and purpose for exercises. Reviewed and educated patient on additions/changes for home exercise program as above (*). Skilled judgment was used in selection of appropriate interventions. Provided written instruction for home exercise program to facilitate proper performance and compliance. Correct performance of therapeutic exercises was facilitated with verbal, visual, and tactile cuing. Patient education as noted. Manual Therapy: Manual Traction: After therex, manual lumbar belt traction x12 minutes with pt LEs elevated on leg rest and caudal force to patient tolerance. Her response to treatment was monitored throughout. Skilled Intervention: Manual skills to improve joint mobility, ROM, and decrease pain. Utilized anatomy knowledge of the clinician, and assessment of patient's response to intervention. Billing Therapeutic Exercise Treatment Minutes: 35 Manual TherapyTreatment Minutes: 12 Skilled Treatment Time Minutes (timed and untimed codes): 47 Total Session Time (minutes): 47 Session Start Time : 1347 Session Stop Time : 1434 Michael Russo PT Program_ID:[id number] Access Code: [email or web address] URL: [email or web address] Date: 12-11-2024 Prepared By: Michael Russo Program Notes Exercises - Supine Lower Trunk Rotation - 2-3 x daily - 7 x weekly - 2 sets - 10 reps - Hooklying Single Knee to Chest Stretch - 2-3 x daily - 7 x weekly - sets - 3 reps - Supine Double Knee to Chest Modified - 2-3 x daily - 7 x weekly - sets - 3 reps - Supine Transversus Abdominis Bracing - Hands on Ground - 3 x daily - 7 x weekly - 2 sets - 10 reps - Curl Up with Arms Crossed - 2 x daily - 7 x weekly - 2 sets - 10 reps documented in this encounter [facility] 11-30-2024 Instructions Marii Red APRN.MEASUREMENT ADVISOR - 11/30/2024 4:49 PM EDT - Follow the steroid taper as prescribed to reduce inflammation in your back: start with 6 tablets on Day 1 and taper down over the following days until the pack is finished. - Begin duloxetine (Cymbalta) 20 mg once daily for chronic pain; the first one or two doses may cause lightheadedness--rise slowly from sitting to standing, and continue even if you feel lightheaded at first, as this usually resolves. - Apply a lidocaine patch to the area of greatest back pain; wear it as directed and check with your insurance for coverage. - Discontinue regular gabapentin doses since your hand pain has resolved; if you wish to use up your remaining pills, take 100 mg once at bedtime only to help with sleep. - Continue the daily back exercises you learned in physical therapy and attend your PT sessions over the next six weeks as instructed. documented in this encounter [facility] 11-30-2024 Note HNO ID: [id number] Author: MARII RED APRN.MEASUREMENT ADVISOR Service: ? Author Type: Nurse Practitioner Type: Progress Notes Filed: 11/30/2024 16:50 Note Text: This is a 84 year old female who presents today with: Patient presents with: Leg Pain: Right upper leg pain HISTORY OF PRESENT ILLNESS: Libia Najera is a 84 year old female. Patient presents with: Leg Pain: Right upper leg pain Libia Najera is an 84-year-old female with a history of chronic back pain, presenting for worsening back and leg pain. Back and Leg Pain: - Chronic back pain with worsening symptoms over the past few months. - Pain radiates to the leg, particularly around the knee. - Denies known trauma or injury. - Pain severity rated as 4/10 in the back; leg pain is minimal when sitting but exacerbated by walking and lying down. - Reports nocturia and numbness in feet at night. - Currently taking gabapentin 100 mg TID, with 200 mg at bedtime; reports fatigue attributed to the medication. - Recent steroid use a couple of weeks ago. - Undergoing physical therapy with Dr. Singh, with sessions scheduled weekly. PAST MEDICAL HISTORY: PAST MEDICAL HISTORY Diagnosis Date Arthritis Arthropathy, unspecified, site unspecified Backache, unspecified CKD (chronic kidney disease) stage 3, GFR 30-59 ml/min ([facility]) 07/31/2018 Diverticulosis of colon (without mention of hemorrhage) Essential hypertension, benign Female stress incontinence mild Melanoma ([facility]) 09/03/2020 Right anterior proximal upper arm Nonspecific abnormal electrocardiogram (ECG) (EKG) PAC Other and unspecified hyperlipidemia Reactive depression 07/31/2018 Symptomatic menopausal or female climacteric states PAST SURGICAL HISTORY Procedure Laterality Date ABDOMINAL SURGERY HX APPENDECTOMY APPENDECTOMY HX CHOLECSTOT/CHOLECSTOST W/EXPL DRG/RMVL ST1 SPX COLONOSCOPY FLX DX W/COLLJ SPEC WHEN PFRMD 2001 Colonoscopy COLONOSCOPY FLX DX W/COLLJ SPEC WHEN PFRMD 01/05/2012 Colonoscopy COLONOSCOPY FLX DX W/COLLJ SPEC WHEN PFRMD 01/13/2021 DILATION AND CURETTAGE DXAND/THER NONOBSTETRIC Dilation AND curettage ESOPHAGOGASTRODUODENOSCOPY TRANSORAL DIAGNOSTIC 01/13/2021 EXC/DSTRJ LINGUAL TONSIL ANY METHOD SPX LIG/TRNSXJ FLP TUBE ABDL/VAG APPR UNI/BI Tubal ligation NEUROPLASTY AND/TRANSPOS MEDIAN NRV CARPAL TUNNE 06/08/2011 Carpal tunnel decomp, right PAST SURGICAL HISTORY OF 2007 removal growth between toes =left PAST SURGICAL HISTORY OF Multple myeloma's REVISE MEDIAN N/CARPAL TUNNEL SURG 06/28/2013 left CTR REVISE MEDIAN N/CARPAL TUNNEL SURG Left 01/29/2022 Left Carpal tunnel release with nerve wrap SALPINGO-OOPHORECTOMY COMPL/PRTL UNI/BI SPX 2003 Salpingo-oophorectomy SKIN BIOPSY HX TOTAL ABDOMINAL HYSTERECT W/WO RMVL TUBE OVARY 2003 Hysterectomy, ELLIOT VAGINAL HYSTERECTOMY ALLERGIES Patient has no known allergies. MEDICATIONS Current Outpatient Medications Medication Sig gabapentin (NEURONTIN) 100 mg capsule Take 1 capsule by mouth two times a day for 30 days. gabapentin (NEURONTIN) 100 mg capsule Take 2 capsules by mouth daily at bedtime for 30 days. omeprazole (PRILOSEC) 40 mg capsule Take 1 capsule by mouth once daily. pravastatin (PRAVACHOL) 40 mg tablet Take 1 tablet by mouth once daily. lisinopril-hydroCHLOROthiazide (ZESTORETIC) 10-12.5 mg per tablet Take 1 tablet by mouth every morning. latanoprost (XALATAN) 0.005 % ophthalmic solution Use 1 Drop in both eyes daily at bedtime. TO AFFECTED EYE(S) Blood Pressure Cuff - Home Use BLOOD PRESSURE CUFF FOR HOME USE. DX: LABILE BLOOD PRESSURE Calcium Carbonate-Vitamin D2 600 mg calcium- 200 unit tab Take 1 tablet by mouth once daily. No current facility-administered medications for this visit. FAMILY HISTORY Problem Relation Age of Onset Heart Mother Diabetes Mother Cancer Mother UTERUS Diabetes Father Heart Father Cancer Maternal Grandmother UTERUS Colon Cancer Daughter Social History Tobacco Use Smoking status: Never Smokeless tobacco: Never Vaping Use Vaping status: Never Used Substance Use Topics Alcohol use: No Drug use: No REVIEW OF SYSTEMS Constitutional: (+) fatigue, (+) insomnia, (-) somnolence Genitourinary: (+) nocturia Musculoskeletal: (+) back pain, (+) right leg pain, (+) pain with walking Neurological: (+) bilateral foot numbness, (-) dizziness EXAM: BP 128/64 Pulse 64 Wt 90.3 kg (199 lb) SpO2 95% BMI 32.12 kg/m? PHYSICAL EXAM: GENERAL: NAD, alert and oriented. SKIN: Unremarkable, no rash or skin lesions. HEAD: Normocephalic. EXTREMITIES: Normal, no deformities, no skin discoloration, no edema. NEURO: Awake, alert and oriented x3, cranial nerves II-XII grossly intact, limping favoring right leg gait, no involuntary motions. Able to stand on toes and heels. Palpable tenderness in roslyn. flank, none along thoracic or lumbar spine. Sensation right L5 diminished, otherwise normal. Nega (more content not included)... [facility] 11-30-2024 History of Present illness Narrative This is a 84 year old female who presents today with: Patient presents with: Leg Pain: Right upper leg pain HISTORY OF PRESENT ILLNESS: Libia Najera is a 84 year old female. Patient presents with: Leg Pain: Right upper leg pain Libia Najera is an 84-year-old female with a history of chronic back pain, presenting for worsening back and leg pain. Back and Leg Pain: - Chronic back pain with worsening symptoms over the past few months. - Pain radiates to the leg, particularly around the knee. - Denies known trauma or injury. - Pain severity rated as 4/10 in the back; leg pain is minimal when sitting but exacerbated by walking and lying down. - Reports nocturia and numbness in feet at night. - Currently taking gabapentin 100 mg TID, with 200 mg at bedtime; reports fatigue attributed to the medication. - Recent steroid use a couple of weeks ago. - Undergoing physical therapy with Dr. Singh, with sessions scheduled weekly. PAST MEDICAL HISTORY: PAST MEDICAL HISTORY Diagnosis Date Arthritis Arthropathy, unspecified, site unspecified Backache, unspecified CKD (chronic kidney disease) stage 3, GFR 30-59 ml/min ([facility]) 07/31/2018 Diverticulosis of colon (without mention of hemorrhage) Essential hypertension, benign Female stress incontinence mild Melanoma ([facility]) 09/03/2020 Right anterior proximal upper arm Nonspecific abnormal electrocardiogram (ECG) (EKG) PAC Other and unspecified hyperlipidemia Reactive depression 07/31/2018 Symptomatic menopausal or female climacteric states PAST SURGICAL HISTORY Procedure Laterality Date ABDOMINAL SURGERY HX APPENDECTOMY APPENDECTOMY HX CHOLECSTOT/CHOLECSTOST W/EXPL DRG/RMVL ST1 SPX COLONOSCOPY FLX DX W/COLLJ SPEC WHEN PFRMD 2001 Colonoscopy COLONOSCOPY FLX DX W/COLLJ SPEC WHEN PFRMD 01/05/2012 Colonoscopy COLONOSCOPY FLX DX W/COLLJ SPEC WHEN PFRMD 01/13/2021 DILATION & CURETTAGE DX&/THER NONOBSTETRIC Dilation & curettage ESOPHAGOGASTRODUODENOSCOPY TRANSORAL DIAGNOSTIC 01/13/2021 EXC/DSTRJ LINGUAL TONSIL ANY METHOD SPX LIG/TRNSXJ FLP TUBE ABDL/VAG APPR UNI/BI Tubal ligation NEUROPLASTY &/TRANSPOS MEDIAN NRV CARPAL TUNNE 06/08/2011 Carpal tunnel decomp, right PAST SURGICAL HISTORY OF 2006 removal growth between toes =left PAST SURGICAL HISTORY OF Multple myeloma's REVISE MEDIAN N/CARPAL TUNNEL SURG 06/28/2013 left CTR REVISE MEDIAN N/CARPAL TUNNEL SURG Left 01/29/2022 Left Carpal tunnel release with nerve wrap SALPINGO-OOPHORECTOMY COMPL/PRTL UNI/BI SPX 2003 Salpingo-oophorectomy SKIN BIOPSY HX TOTAL ABDOMINAL HYSTERECT W/WO RMVL TUBE OVARY 2003 Hysterectomy, ELLIOT VAGINAL HYSTERECTOMY ALLERGIES Patient has no known allergies. MEDICATIONS Current Outpatient Medications Medication Sig gabapentin (NEURONTIN) 100 mg capsule Take 1 capsule by mouth two times a day for 30 days. gabapentin (NEURONTIN) 100 mg capsule Take 2 capsules by mouth daily at bedtime for 30 days. omeprazole (PRILOSEC) 40 mg capsule Take 1 capsule by mouth once daily. pravastatin (PRAVACHOL) 40 mg tablet Take 1 tablet by mouth once daily. lisinopril-hydroCHLOROthiazide (ZESTORETIC) 10-12.5 mg per tablet Take 1 tablet by mouth every morning. latanoprost (XALATAN) 0.005 % ophthalmic solution Use 1 Drop in both eyes daily at bedtime. TO AFFECTED EYE(S) Blood Pressure Cuff - Home Use BLOOD PRESSURE CUFF FOR HOME USE. DX: LABILE BLOOD PRESSURE Calcium Carbonate-Vitamin D2 600 mg calcium- 200 unit tab Take 1 tablet by mouth once daily. No current facility-administered medications for this visit. FAMILY HISTORY Problem Relation Age of Onset Heart Mother Diabetes Mother Cancer Mother UTERUS Diabetes Father Heart Father Cancer Maternal Grandmother UTERUS Colon Cancer Daughter Social History Tobacco Use Smoking status: Never Smokeless tobacco: Never Vaping Use Vaping status: Never Used Substance Use Topics Alcohol use: No Drug use: No REVIEW OF SYSTEMS Constitutional: (+) fatigue, (+) insomnia, (-) somnolence Genitourinary: (+) nocturia Musculoskeletal: (+) back pain, (+) right leg pain, (+) pain with walking Neurological: (+) bilateral foot numbness, (-) dizziness EXAM: BP 128/64 Pulse 64 Wt 90.3 kg (199 lb) SpO2 95% BMI 32.12 kg/m PHYSICAL EXAM: GENERAL: NAD, alert and oriented. SKIN: Unremarkable, no rash or skin lesions. HEAD: Normocephalic. EXTREMITIES: Normal, no deformities, no skin discoloration, no edema. NEURO: Awake, alert and oriented x3, cranial nerves II-XII grossly intact, limping favoring right leg gait, no involuntary motions. Able to stand on toes and heels. Palpable tenderness in roslyn. flank, none along thoracic or lumbar spine. Sensation right L5 diminished, otherwise normal. Negative clonus roslyn. Achilles and subpatellar 1+ roslyn. SPINE: Tenderness noted in the lumbar region, worse on the right side. Sensation intact. Reflexes normal. LABS: Labs: - Laboratory evaluation: - Prediabetic status - Mild renal insufficiency Imaging: - X-ray of the back: No specific findings mentioned in the transcript - X-ray of the knees: Mild arthritic changes ASSESSMENT/PLAN: 1. Sciatica of right side - ICD9: 724.3, ICD10: M54.31 - Pain localized to the right leg, exacerbated by standing and lying down; no precipitating trauma or injury reported. - Physical examination reveals tenderness in the lumbar region, particularly at the L4 level, with associated paresthesia in the right leg. - Neurological examination demonstrates intact reflexes and sensation, with no evidence of hyperreflexia or clonus. - Current medication regimen includes gabapentin 100 mg TID, which is causing significant fatigue; dosage reduced to 100 mg QHS. - Initiated a Medrol dose pack to reduce inflammation. - Prescribed duloxetine 20 mg PO daily for chronic pain management; advised potential side effects include transient dizziness and somnolence. - Ordered lidocaine patches for localized pain relief; instructed to apply to the most painful area. - Patient is currently undergoing physical therapy; continue with prescribed exercises. - No evidence of bowel or bladder dysfunction; renal function is stable. - Follow-up as needed to assess response to treatment and adjust medications accordingly. Discussed treatment plan and patient voices understanding. Patient's questions answered appropriately. Medications and potential side effects were discussed and patient voices understanding. Return to the office as scheduled or as needed for worsening/no improvement. Marii Red APRN.[place] documented in this encounter [facility] 11-30-2024 Note HNO ID: [id number] Author: JAMEY DYE MD Service: ? Author Type: Physician Type: Progress Notes Filed: 11/30/2024 07:46 Note Text: Patient presents with right upper leg pain. She has evaluated for this issue in family medicine 1 month ago and has started physical therapy for it. She reports the pain is worsened and her therapist is out for a - it interfered with sleep last night. She presents to the [facility] with request for stronger pain medicine since gabapentin and acetaminophen are not sufficient for her pain. She denies any new issues such as injury and does not think she needs an xray. She ambulates with a cane. She has not attempted to make a primary care appointment but was interested in making one-facilitated for today. [facility] 11-30-2024 History of Present illness Narrative Patient presents with right upper leg pain. She has evaluated for this issue in family medicine 1 month ago and has started physical therapy for it. She reports the pain is worsened and her therapist is out for a - it interfered with sleep last night. She presents to the [facility] with request for stronger pain medicine since gabapentin and acetaminophen are not sufficient for her pain. She denies any new issues such as injury and does not think she needs an xray. She ambulates with a cane. She has not attempted to make a primary care appointment but was interested in making one-facilitated for today. documented in this encounter [facility] 11-27-2024 Note HNO ID: [id number] Author: MICHAEL RUSSO PT Service: ? Author Type: Physical Therapist Type: Progress Notes Filed: 11/27/2024 16:52 Note Text: Episode Visit Count: 2 Therapist That Will Accept/Oversee The Plan Of Care: Michael Russo PT Start of Care Date: 11/13/24 Onset Date: 09/13/24 Plan of Care Certification Date: 11/13/24 Next Certification Due Date: 12/25/24 Patient Identified by Name and Date of : Yes REHABILITATION AND SPORTS THERAPY PHYSICAL THERAPY TREATMENT NOTE ASSESSMENT: Libia Najera tolerated the session with decreased symptoms. She demonstrated improvements in pain and exercise tolerance. The patient will continue to benefit from ongoing skilled physical therapy to progress toward set goals. PLAN FOR NEXT VISIT: Review, correct and progress HEP to tolerance. Continue with postural stretching and strengthening with flexion directional preference. Continue manual lumbar belt traction prn. Avoid WBing trunk flexion completely. SUBJECTIVE: Pt reports that overall she is feeling the same. She reports that she has been compliant with HEP. She reports that the pain in her lateral R hip has been worse the past two days and she attributes this to the weather. She denies any increase in pain with HEP completion. Pain: Pain Pain Level: 5 (4-5/10) Pain Location: Thigh - Right (lateral aspect) Description: Aching Frequency: Intermittent, Walking Post Treatment Pain Post Treatment Pain Level: Better Post Treatment Symptoms: After session today, pt reported feeling better with no pain present. OBJECTIVE MEASURES WITH LEVEL OF FUNCTION: TREATMENT: Therapeutic Exercise: 1: SciFit StepOne seat #12 x5 minutes (Pt provided an update on her condition and plan of care reviewed) 2: supine LTR 2x10 3: supine B SKTC 3x30 seconds 4: supine DKTC 3x30 seconds 5: supine TA activation via shoulder extension 2 second holds 2x10 6: crunches in small range 2x10 7: supine posterior pelvic tilts 2x10 8: HEP was reviewed and continuation encouraged as long as HEP completion does not cause increaesd pain. No additions today. Skilled Intervention: Patient was educated in proper exercise technique and purpose for exercises. Skilled judgment was used in selection of appropriate interventions. Correct performance of therapeutic exercises was facilitated with verbal, visual, and tactile cuing. Patient education as noted. Manual Therapy: Manual Traction: After therex, manual lumbar belt traction x12 minutes with pt LEs elevated on leg rest and caudal force to patient tolerance. Her response to treatment was monitored throughout. Skilled Intervention: Manual skills to improve joint mobility, ROM, and decrease pain. Utilized anatomy knowledge of the clinician, and assessment of patient's response to intervention. Billing Therapeutic Exercise Treatment Minutes: 32 Manual TherapyTreatment Minutes: 12 Skilled Treatment Time Minutes (timed and untimed codes): 44 Total Session Time (minutes): 44 Session Start Time : 1403 Session Stop Time : 1447 Michael Russo PT [facility] 11-27-2024 History of Present illness Narrative Episode Visit Count: 2 Therapist That Will Accept/Oversee The Plan Of Care: Michael Russo PT Start of Care Date: 11/13/24 Onset Date: 09/13/24 Plan of Care Certification Date: 11/13/24 Next Certification Due Date: 12/25/24 Patient Identified by Name and Date of : Yes REHABILITATION AND SPORTS THERAPY PHYSICAL THERAPY TREATMENT NOTE ASSESSMENT: Libia Najera tolerated the session with decreased symptoms. She demonstrated improvements in pain and exercise tolerance. The patient will continue to benefit from ongoing skilled physical therapy to progress toward set goals. PLAN FOR NEXT VISIT: Review, correct and progress HEP to tolerance. Continue with postural stretching and strengthening with flexion directional preference. Continue manual lumbar belt traction prn. Avoid WBing trunk flexion completely. SUBJECTIVE: Pt reports that overall she is feeling the same. She reports that she has been compliant with HEP. She reports that the pain in her lateral R hip has been worse the past two days and she attributes this to the weather. She denies any increase in pain with HEP completion. Pain: Pain Pain Level: 5 (4-5/10) Pain Location: Thigh - Right (lateral aspect) Description: Aching Frequency: Intermittent, Walking Post Treatment Pain Post Treatment Pain Level: Better Post Treatment Symptoms: After session today, pt reported feeling better with no pain present. OBJECTIVE MEASURES WITH LEVEL OF FUNCTION: TREATMENT: Therapeutic Exercise: 1: SciFit StepOne seat #12 x5 minutes (Pt provided an update on her condition and plan of care reviewed) 2: supine LTR 2x10 3: supine B SKTC 3x30 seconds 4: supine DKTC 3x30 seconds 5: supine TA activation via shoulder extension 2 second holds 2x10 6: crunches in small range 2x10 7: supine posterior pelvic tilts 2x10 8: HEP was reviewed and continuation encouraged as long as HEP completion does not cause increaesd pain. No additions today. Skilled Intervention: Patient was educated in proper exercise technique and purpose for exercises. Skilled judgment was used in selection of appropriate interventions. Correct performance of therapeutic exercises was facilitated with verbal, visual, and tactile cuing. Patient education as noted. Manual Therapy: Manual Traction: After therex, manual lumbar belt traction x12 minutes with pt LEs elevated on leg rest and caudal force to patient tolerance. Her response to treatment was monitored throughout. Skilled Intervention: Manual skills to improve joint mobility, ROM, and decrease pain. Utilized anatomy knowledge of the clinician, and assessment of patient's response to intervention. Billing Therapeutic Exercise Treatment Minutes: 32 Manual TherapyTreatment Minutes: 12 Skilled Treatment Time Minutes (timed and untimed codes): 44 Total Session Time (minutes): 44 Session Start Time : 1403 Session Stop Time : 1447 Michael Russo PT documented in this encounter [facility] 11-14-2024 Telephone encounter Note Attempted to call pt line busy. Will try back in a few. [facility] 11-13-2024 Note HNO ID: [id number] Author: MICHAEL RUSSO PT Service: ? Author Type: Physical Therapist Type: Progress Notes Filed: 11/13/2024 11:35 Note Text: Episode Visit Count: 1 Therapist That Will Accept/Oversee The Plan Of Care: Michael Russo PT Start of Care Date: 11/13/24 Onset Date: 09/13/24 (chronic radicular LE symptoms that have worsened the past couple of months) Plan of Care Certification Date: 11/13/24 Next Certification Due Date: 12/25/24 Patient Identified by Name and Date of : Yes REHABILITATION AND SPORTS THERAPY PHYSICAL THERAPY EVALUATION PLAN OF CARE: Assessment: Libia Najera presents with chief complaint of lumbar radiculopathy that interferes with walking, stair negotiation, rising from a chair . The patient presents with impairments in ADL's, independence in exercise, overall function, range of motion, strength, symptom management, and tissue tenderness. PROMIS? (Patient-Reported Outcomes Measurement Information System) scores were reviewed and identified as a rehabilitation concern. Prognosis for therapy is Good due to: current objective clinical presentation, good overall health status, good support system/ coping skills. The patient will benefit from skilled therapy services to meet the goals established for this plan of care as noted below. Classification Pain Mechanism Classification: Neuropathic Low Back Pain Classification: Symptom Modulation Goals for Episode of Care: established 11/13/24 Patient reported outcome of physical function will increase T-score by a minimum 5 points. Independent in home exercises. Patient will decrease pain to 0/10 with functional activities to allow patient to improve ambulation, transfers, and standing tolerance for ADLs. Restore pain-free lumbar ROM to WFL to allow for improved transfers and walking. Stand / Walk without limitations, without pain/symptoms. Patient will increase strength of core and postural muscles to WFL to allow for improved position tolerance for standing and walking. Patient Goals: decrease pain and stay active Time Frame for Goals and Treatment : 12/25/24 Planned Interventions, Frequency, and Duration: Current Frequency: 1x/week Duration: 6 weeks Total Number of Visits Planned: 6 Planned Treatment Interventions: Therapeutic exercise (97292), Manual therapy (27695), Therapeutic activities (19213), Self-fci management (27837), Patient/Family/Caregiver Education, Body Mechanics Training PLAN FOR NEXT VISIT: Review, correct and progress HEP to tolerance. Continue with postural stretching and strengthening with flexion directional preference. Consider manual lumbar belt traction prn. Avoid WBing trunk flexion completely. Patient demonstrates good understanding of plan of care and treatment. The above goals and plan of care were discussed and agreed upon by patient/family. SUBJECTIVE: Pt reports intermittent pain in B anterior thighs and posterior calves. She also reports numbness in her feet and heavy feeling in lower legs. She reports that pain is most severe in the mornings and during the night when she uses the restroom. She reports that symptoms are worse with standing and walking and better with sitting. She reports that gabapentin medication has helped with pain in hips and knees. Patient Goals: decrease pain and stay active Functional Limitations: walking, stair negotiation, rising from a chair Prior Level of Function: Independent without limitations Relevant History Past Relevant Medical Conditions: Cancer Past Relevant Surgical Conditions: Comments Relevant Surgical Conditions Comments: surgical removal of melanoma spots Employment: Retired Hobbies / Interests: yardwork Home Environment Patient Lives With: Self/Alone Assistance Available: PRN Home Type: Multi-Level with First Floor Set-Up Entry To Home: Stairs, Without Rail, Ramp Number Of Stairs Into Home: 2 Equipment Owned: Cane, Walker- Wheeled Intake Information: Prescription present Previous Treatment: NSAIDs (gabapentin) Falls Interview: Fall with injury in the last year, No positive findings with falls interview Falls Intervention: Instructed patient on safety and use of assistive device and awareness in regards to falls prevention. Red Flags Vertebral Fracture Red Flags: Female, Age >70 Vertebral Fracture Clinical Reasoning: Proceed with caution due to the above (1-2) risk factors Abdominal Aortic Aneurysm Clinical Reasoning: No identified risk factors. Cancer Red Flags: History of Cancer Cancer Clinical Reasoning: Proceed with caution Infection Clinical Reasoning: No identified risk factors. Cauda Equina Syndrome Clinical Reasoning: No identified risk factors. Red Flags - Cervical Cancer Red Flags: History of Cancer Cancer Clinical Reasoning: Proceed with caution Infection Clinical Reasoning: No identified risk factors. Spine History Symptoms Location at Onset: Back Sym (more content not included)... [facility] 11-13-2024 History of Present illness Narrative Images from the original note were not included. Episode Visit Count: 1 Therapist That Will Accept/Oversee The Plan Of Care: Michael Russo PT Start of Care Date: 11/13/24 Onset Date: 09/13/24 (chronic radicular LE symptoms that have worsened the past couple of months) Plan of Care Certification Date: 11/13/24 Next Certification Due Date: 12/25/24 Patient Identified by Name and Date of : Yes REHABILITATION AND SPORTS THERAPY PHYSICAL THERAPY EVALUATION PLAN OF CARE: Assessment: Libia Najera presents with chief complaint of lumbar radiculopathy that interferes with walking, stair negotiation, rising from a chair . The patient presents with impairments in ADL's, independence in exercise, overall function, range of motion, strength, symptom management, and tissue tenderness. PROMIS (Patient-Reported Outcomes Measurement Information System) scores were reviewed and identified as a rehabilitation concern. Prognosis for therapy is Good due to: current objective clinical presentation, good overall health status, good support system/ coping skills. The patient will benefit from skilled therapy services to meet the goals established for this plan of care as noted below. Classification Pain Mechanism Classification: Neuropathic Low Back Pain Classification: Symptom Modulation Goals for Episode of Care: established 11/13/24 Patient reported outcome of physical function will increase T-score by a minimum 5 points. Independent in home exercises. Patient will decrease pain to 0/10 with functional activities to allow patient to improve ambulation, transfers, and standing tolerance for ADLs. Restore pain-free lumbar ROM to WFL to allow for improved transfers and walking. Stand / Walk without limitations, without pain/symptoms. Patient will increase strength of core and postural muscles to WFL to allow for improved position tolerance for standing and walking. Patient Goals: decrease pain and stay active Time Frame for Goals and Treatment : 12/25/24 Planned Interventions, Frequency, and Duration: Current Frequency: 1x/week Duration: 6 weeks Total Number of Visits Planned: 6 Planned Treatment Interventions: Therapeutic exercise (55379), Manual therapy (17176), Therapeutic activities (49722), Self-fci management (07573), Patient/Family/Caregiver Education, Body Mechanics Training PLAN FOR NEXT VISIT: Review, correct and progress HEP to tolerance. Continue with postural stretching and strengthening with flexion directional preference. Consider manual lumbar belt traction prn. Avoid WBing trunk flexion completely. Patient demonstrates good understanding of plan of care and treatment. The above goals and plan of care were discussed and agreed upon by patient/family. SUBJECTIVE: Pt reports intermittent pain in B anterior thighs and posterior calves. She also reports numbness in her feet and heavy feeling in lower legs. She reports that pain is most severe in the mornings and during the night when she uses the restroom. She reports that symptoms are worse with standing and walking and better with sitting. She reports that gabapentin medication has helped with pain in hips and knees. Patient Goals: decrease pain and stay active Functional Limitations: walking, stair negotiation, rising from a chair Prior Level of Function: Independent without limitations Relevant History Past Relevant Medical Conditions: Cancer Past Relevant Surgical Conditions: Comments Relevant Surgical Conditions Comments: surgical removal of melanoma spots Employment: Retired Hobbies / Interests: yardwork Home Environment Patient Lives With: Self/Alone Assistance Available: PRN Home Type: Multi-Level with First Floor Set-Up Entry To Home: Stairs, Without Rail, Ramp Number Of Stairs Into Home: 2 Equipment Owned: Cane, Walker- Wheeled Intake Information: Prescription present Previous Treatment: NSAIDs (gabapentin) Falls Interview: Fall with injury in the last year, No positive findings with falls interview Falls Intervention: Instructed patient on safety and use of assistive device and awareness in regards to falls prevention. Red Flags Vertebral Fracture Red Flags: Female, Age >70 Vertebral Fracture Clinical Reasoning: Proceed with caution due to the above (1-2) risk factors Abdominal Aortic Aneurysm Clinical Reasoning: No identified risk factors. Cancer Red Flags: History of Cancer Cancer Clinical Reasoning: Proceed with caution Infection Clinical Reasoning: No identified risk factors. Cauda Equina Syndrome Clinical Reasoning: No identified risk factors. Red Flags - Cervical Cancer Red Flags: History of Cancer Cancer Clinical Reasoning: Proceed with caution Infection Clinical Reasoning: No identified risk factors. Spine History Symptoms Location at Onset: Back Symptoms Since Onset: Worsening Pain is Worse Always: Standing, Walking Pain is Better Sometimes: Sitting Previous Episodes: No Sleeping Position: Side lying left Sleep Affected by Pain: Not affected by pain Pain: Pain Pain Level: 5 (0/10 at rest sitting, 5/10 when it occurs) Pain Location: Low Back/Lumbar Spine- Midline, Thigh - Right, Thigh - Left, Knee - Right, Knee - Left, Calf - Right, Calf - Left Description: Sharp Frequency: Intermittent, Standing, Walking Post Treatment Pain Post Treatment Pain Level: No Change PROMIS Scales 11/13/2024 Higher is Better Phys Func - T Score 39 (moderate dysfunction) Phys Func - Percentile 14 Self-Eff Symptom - T Score 43 (Average) Self-Eff Symptom - Percentile 24 Proxy-reported T-scores: mean of general population = 50. 5 points is clinically meaningfully difference Percentiles provide an indication of how the patient's score ranks in relation to the general population. Higher percentile rankings indicate better function/quality of life. 50th percentile is the average of the general population and indicates half of respondents had a worse score. OBJECTIVE MEASURES WITH LEVEL OF FUNCTION: Posture / Alignment Posture: Forward head, Increased thoracic kyphosis, Rounded shoulders Spine Observations R Lumbar Spine Palpation Tenderness: Paraspinals, Spinous process L Lumbar Spine Palpation Tenderness: Paraspinals, Spinous process Sensation - Lumbar Sensation: Grossly Intact Lumbar Spine AROM Lumbar Flexion: Normal Lumbar Extension: Major limitation Lumbar R Side-Bend: Normal Lumbar L Side-Bend: Normal Lumbar R Rotation: Minimal limitation Lumbar L Rotation: Minimal limitation LE Strength Trunk Strength: Pt diagnosis, degenerative changes in spine, reported functional difficulties and her desire to stay active in her yard all indicate that she will benefit from increased core and postural strength R LE Strength: All WFL except for hip flexion L LE Strength: WNL R Hip Flexion (L2): 4/5 Special Tests - Hip and Spine Hip and Spine Special Tests: SLR Test SLR Test: Right Positive, Left Positive Vitals BP: 137/85 Pulse: 62 Education: Education Learning Preferences: Demonstration, Explanation, Performance, Printed Materials Barriers: None Learning/educational needs: Home exercise program, Plan of Care, Posture, Body Mechanics Education Provided: Yes, see treatment interventions for education provided Education Provided To: Patient Education Mode/Type: Demonstration, Explanation/Discussion, Literature/Printed Materials, Performance Response to Education/Teach Back: States/Identifies, Return Demonstration, Requires Review/Additional Education TREATMENT: PT Treatment Interventions: Therapeutic Exercise Evaluation Therapeutic Exercise: 1: Pt was educated extensively on the anatomy of lumbar spine, likely etiology of her symptoms and rationale for plan of care recommendations. She was advised to always stop any exercise that causes increased pain, especially peripheral symptoms. She was educated on her directional preference for flexion and how this concept will be used in PT plan of care. Her x-ray findings were reviewed and used as rationale for plan of care recommendations. She was educated on centralization versus peripheralization and all appropriate precautions. 2: *supine LTR 2x10 3: *supine B SKTC 3x30 seconds 4: *supine DKTC 3x30 seconds Skilled Intervention: Patient was educated in proper exercise technique and purpose for exercises. Reviewed and educated patient on additions/changes for home exercise program as above (*). Skilled judgment was used in selection of appropriate interventions. Provided written instruction for home exercise program to facilitate proper performance and compliance. Correct performance of therapeutic exercises was facilitated with verbal, visual, and tactile cuing. Patient education as noted. Billing * Evaluation Low Complexity: 1 Unit Therapeutic Exercise Treatment Minutes: 24 Skilled Treatment Time Minutes (timed and untimed codes): 44 Total Session Time (minutes): 44 Session Start Time : 1005 Session Stop Time : 1049 Michael Russo PT Program_ID:[id number] Access Code: [email or web address] URL: [email or web address] Date: 11-13-2024 Prepared By: Michael Russo Program Notes Exercises - Supine Lower Trunk Rotation - 2-3 x daily - 7 x weekly - 2 sets - 10 reps - Hooklying Single Knee to Chest Stretch - 2-3 x daily - 7 x weekly - sets - 3 reps - Supine Double Knee to Chest Modified - 2-3 x daily - 7 x weekly - sets - 3 reps documented in this encounter [facility] 11-02-2024 Note Addended by: ZAHIDA PERRY on: 11/02/2024 02:21 PM Modules accepted: Level of Service [facility] 11-02-2024 Miscellaneous Notes Addended by: ZAHIDA PERRY on: 11/02/2024 02:21 PM Modules accepted: Level of Service documented in this encounter [facility] 11-02-2024 Note HNO ID: [id number] Author: PAGE BECKETT LPN Service: ? Author Type: LICENSED NURSE Type: Progress Notes Filed: 11/02/2024 12:45 Note Text: Bilateral ears flushed with warm water/h2o2. Large amount of cerumen removed. Patient tolerated procedure well. Page Beckett LPN [facility] 11-02-2024 History of Present illness Narrative Bilateral ears flushed with warm water/h2o2. Large amount of cerumen removed. Patient tolerated procedure well. Page Beckett LPN [facility] Subjective Libia Najera is a 84 year old female. Patient presents with: Ear Problem: Bilat ear clogged, unable to hear for awhile Ear Problem Associated symptoms include hearing loss. Pertinent negatives include no coughing, rash, rhinorrhea or sore throat. Libia Najera is a 84 year old female who presents with ears feeling clogged and unable to hear recently. States 'feels like something was crawling around in her left ear. She denies pain or fever. Denies associated URI symptoms. She has not used any medications for the ear symptoms. Review of Systems Constitutional: Negative for chills and fever. HENT: Positive for hearing loss. Negative for congestion, ear pain, postnasal drip, rhinorrhea, sinus pain, sneezing and sore throat. Respiratory: Negative for cough. Cardiovascular: Negative. Skin: Negative for color change and rash. Objective BP 104/81 Pulse (!) 54 Temp 36.7 C (98 F) Resp 20 Wt 88 kg (194 lb 0.1 oz) SpO2 97% BMI 31.31 kg/m PAST MEDICAL HISTORY Diagnosis Date Arthritis Arthropathy, unspecified, site unspecified Backache, unspecified CKD (chronic kidney disease) stage 3, GFR 30-59 ml/min (HCC) 07/31/2018 Diverticulosis of colon (without mention of hemorrhage) Essential hypertension, benign Female stress incontinence mild Melanoma ([facility]) 09/03/2020 Right anterior proximal upper arm Nonspecific abnormal electrocardiogram (ECG) (EKG) PAC Other and unspecified hyperlipidemia Reactive depression 07/31/2018 Symptomatic menopausal or female climacteric states PAST SURGICAL HISTORY Procedure Laterality Date ABDOMINAL SURGERY HX APPENDECTOMY APPENDECTOMY HX CHOLECSTOT/CHOLECSTOST W/EXPL DRG/RMVL ST1 SPX COLONOSCOPY FLX DX W/COLLJ SPEC WHEN PFRMD 2001 Colonoscopy COLONOSCOPY FLX DX W/COLLJ SPEC WHEN PFRMD 01/05/2012 Colonoscopy COLONOSCOPY FLX DX W/COLLJ SPEC WHEN PFRMD 01/13/2021 DILATION & CURETTAGE DX&/THER NONOBSTETRIC Dilation & curettage ESOPHAGOGASTRODUODENOSCOPY TRANSORAL DIAGNOSTIC 01/13/2021 EXC/DSTRJ LINGUAL TONSIL ANY METHOD SPX LIG/TRNSXJ FLP TUBE ABDL/VAG APPR UNI/BI Tubal ligation NEUROPLASTY &/TRANSPOS MEDIAN NRV CARPAL TUNNE 06/08/2011 Carpal tunnel decomp, right PAST SURGICAL HISTORY OF 2007 removal growth between toes =left PAST SURGICAL HISTORY OF Multple myeloma's REVISE MEDIAN N/CARPAL TUNNEL SURG 06/28/2013 left CTR RE[facility] MEDIAN N/CARPAL TUNNEL SURG Left 01/29/2022 Left Carpal tunnel release with nerve wrap SALPINGO-OOPHORECTOMY COMPL/PRTL UNI/BI SPX 2003 Salpingo-oophorectomy SKIN BIOPSY HX TOTAL ABDOMINAL HYSTERECT W/WO RMVL TUBE OVARY 2003 Hysterectomy, ELLIOT VAGINAL HYSTERECTOMY ALLERGIES Patient has no known allergies. MEDICATIONS omeprazole (PRILOSEC) 40 mg capsule Take 1 capsule by mouth once daily. pravastatin (PRAVACHOL) 40 mg tablet Take 1 tablet by mouth once daily. lisinopril-hydroCHLOROthiazide (ZESTORETIC) 10-12.5 mg per tablet Take 1 tablet by mouth every morning. gabapentin (NEURONTIN) 100 mg capsule Take 100 mg by mouth three times a day. latanoprost (XALATAN) 0.005 % ophthalmic solution Use 1 Drop in both eyes daily at bedtime. TO AFFECTED EYE(S) Blood Pressure Cuff - Home Use BLOOD PRESSURE CUFF FOR HOME USE. DX: LABILE BLOOD PRESSURE Calcium Carbonate-Vitamin D2 600 mg calcium- 200 unit tab Take 1 tablet by mouth once daily. FAMILY HISTORY Problem Relation Age of Onset Heart Mother Diabetes Mother Cancer Mother UTERUS Diabetes Father Heart Father Cancer Maternal Grandmother UTERUS Colon Cancer Daughter Social History Tobacco Use Smoking status: Never Smokeless tobacco: Never Vaping Use Vaping status: Never Used Substance Use Topics Alcohol use: No Drug use: No Physical Exam Vitals and nursing note reviewed. Constitutional: General: She is not in acute distress. Appearance: Normal appearance. She is not ill-appearing. HENT: Right Ear: Ear canal and external ear normal. Decreased hearing noted. No drainage, swelling or tenderness. There is impacted cerumen. Left Ear: Ear canal and external ear normal. Decreased hearing noted. No drainage, swelling or tenderness. There is impacted cerumen. Ears: Comments: Bilateral ears: Cerumen impairs exam of clinically significant portions of the external auditory canal, tympanic membrane or middle ear condition. Nose: Nose normal. Mouth/Throat: Mouth: Mucous membranes are moist. Pharynx: Oropharynx is clear. No oropharyngeal exudate or posterior oropharyngeal erythema. Cardiovascular: Rate and Rhythm: Normal rate and regular rhythm. Heart sounds: Normal heart sounds. Pulmonary: Effort: Pulmonary effort is normal. No respiratory distress. Breath sounds: Normal breath sounds. No wheezing or rales. Lymphadenopathy: Cervical: No cervical adenopathy. Skin: General: Skin is warm and dry. Findings: No erythema or rash. Neurological: Mental Status: She is alert. {ASSESSMENT/PLAN: 1. Bilateral impacted cerumen - ICD9: 380.4, ICD10: H61.23 - Cerumen removed via irrigation by RN HOUSE SUPERVISOR, patient tolerated procedure well. Remaining wax removed from right ear with lighted curette by this PHLEBOTOMY SUPPORT TECH. Post procedure ear canal is clear and TM is well visualized with bony landmarks intact and no sign of inflammation/infection. - AMBULATORY EAR LAVAGE/IRRIGATION Grace Briceño APRN.MEASUREMENT ADVISOR Disposition The patient was discharged. Procedures documented in this encounter [facility] 11-02-2024 Note HNO ID: [id number] Author: ZAHIDA PERRY APRN.MEASUREMENT ADVISOR Service: ? Author Type: Nurse Practitioner Type: Progress Notes Filed: 11/02/2024 12:45 Note Text: Subjective Patient ID: Libia is a 84 year old female who presents for Acute Visit (Bilateral leg pain- chronic; getting worse; currently seeing pain mgmt for hand pain). HPI Back and Leg Pain: - Pain localized to lower mid-back, with aching sensation in legs, particularly in the anterior thighs down into the knees - Aggravated by walking; pain rated 8-9/10 during ambulation. - Alleviated when sitting; sleep not affected. - Uses a cane for ambulation espeically longer distances - Denies leg swelling; reports occasional numbness after prolonged sitting in which she has fallen when she's gone to get up from a seated position (not recently), but indicating weakness - Pain exacerbated by cold temperatures. - Taking gabapentin 1 in the morning, 1 at noon, and 2 at night; believes pain worsened after increasing to 2 at night but this was increased by pain management (Dr Dixon's office) for her left forearm neuropathy pain, they are unaware of her leg pain and back pain. - Taking Tylenol with uncertain relief. - History of arthritis in knees and hips; previous knee x-rays in 2022 showed large joint effusion as well. - Has to keep moving and wants to, she still mows the yard (riding mower) couple of time per week Objective BP 114/70 Pulse (!) 49 Resp 16 SpO2 95% Physical Exam Constitutional: General: She is not in acute distress. Appearance: Normal appearance. HENT: Head: Normocephalic. Cardiovascular: Rate and Rhythm: Normal rate and regular rhythm. Pulses: Normal pulses. Heart sounds: Normal heart sounds. Pulmonary: Effort: No respiratory distress. Breath sounds: Normal breath sounds. Musculoskeletal: General: Tenderness present. Skin: General: Skin is warm and dry. Findings: No bruising. Neurological: Mental Status: She is oriented to person, place, and time. Gait: Gait abnormal. Bilateral tenderness above the knees into the thighs with palpation. Knees are soft and appear edematous without pitting but patient denies swelling. Bends legs without difficulty. Monitored gait, which is slightly stooped , slow and some shuffling, guarding due to pain with ambulation. Leg strength with resistance good. Sensation intact, no paresthesia LE Assessment AND Plan Bilateral leg pain Orders: XR LUMBAR GENERAL 3V AP/LAT/L5-S1; Future XR KNEE GENERAL 4V AP BOTH/PA BOTH/LAT/MERC BILATERAL; Future predniSONE (DELTASONE) 10 mg tablet; Take 4 tabs daily x 3 days, then 3 tabs x 3 days, 2 tabs x 3 days, then 1 tab x3 days with food. Primary osteoarthritis of both knees Orders: XR LUMBAR GENERAL 3V AP/LAT/L5-S1; Future XR KNEE GENERAL 4V AP BOTH/PA BOTH/LAT/MERC BILATERAL; Future predniSONE (DELTASONE) 10 mg tablet; Take 4 tabs daily x 3 days, then 3 tabs x 3 days, 2 tabs x 3 days, then 1 tab x3 days with food. - discussed follow up as needed and pending her xray results as she may benefit from an orthopedic consult if it's related to worsening arthritis or discussing with Dr Dixon's office. Will send notes to Dr Dixon's office as well so they are aware. Spinal stenosis of lumbar region with neurogenic claudication Orders: XR LUMBAR GENERAL 3V AP/LAT/L5-S1; Future XR KNEE GENERAL 4V AP BOTH/PA BOTH/LAT/MERC BILATERAL; Future predniSONE (DELTASONE) 10 mg tablet; Take 4 tabs daily x 3 days, then 3 tabs x 3 days, 2 tabs x 3 days, then 1 tab x3 days with food. Chronic pain syndrome Orders: gabapentin (NEURONTIN) 100 mg capsule; Take 1 capsule by mouth two times a day for 30 days. gabapentin (NEURONTIN) 100 mg capsule; Take 2 capsules by mouth daily at bedtime for 30 days. - managed by pain management (Dr Dixon),medication just updated from current orders Neuropathy - (NOS) Orders: gabapentin (NEURONTIN) 100 mg capsule; Take 1 capsule by mouth two times a day for 30 days. gabapentin (NEURONTIN) 100 mg capsule; Take 2 capsules by mouth daily at bedtime for 30 days. -managed by pain management (Dr Dixon),medication just updated from current orders Pain in left forearm Orders: gabapentin (NEURONTIN) 100 mg capsule; Take 1 capsule by mouth two times a day for 30 days. gabapentin (NEURONTIN) 100 mg capsule; Take 2 capsules by mouth daily at bedtime for 30 days. -managed by pain management (Dr Dixon),medication just updated from current orders Zahida Perry APRN.MEASUREMENT ADVISOR Recording using [employer] software for draft documentation of the visit was discussed with the patient/authorized inside outside sales representative; all questions welcomed and answered. Patient/authorized inside outside sales representative agreed to proceed [facility] 11-02-2024 History of Present illness Narrative Subjective Patient ID: Libia is a 84 year old female who presents for Acute Visit (Bilateral leg pain- chronic; getting worse; currently seeing pain mgmt for hand pain). HPI Back and Leg Pain: - Pain localized to lower mid-back, with aching sensation in legs, particularly in the anterior thighs down into the knees - Aggravated by walking; pain rated 8-9/10 during ambulation. - Alleviated when sitting; sleep not affected. - Uses a cane for ambulation espeically longer distances - Denies leg swelling; reports occasional numbness after prolonged sitting in which she has fallen when she's gone to get up from a seated position (not recently), but indicating weakness - Pain exacerbated by cold temperatures. - Taking gabapentin 1 in the morning, 1 at noon, and 2 at night; believes pain worsened after increasing to 2 at night but this was increased by pain management (Dr Dixon's office) for her left forearm neuropathy pain, they are unaware of her leg pain and back pain. - Taking Tylenol with uncertain relief. - History of arthritis in knees and hips; previous knee x-rays in 2022 showed large joint effusion as well. - Has to keep moving and wants to, she still mows the yard (riding mower) couple of time per week Objective BP 114/70 Pulse (!) 49 Resp 16 SpO2 95% Physical Exam Constitutional: General: She is not in acute distress. Appearance: Normal appearance. HENT: Head: Normocephalic. Cardiovascular: Rate and Rhythm: Normal rate and regular rhythm. Pulses: Normal pulses. Heart sounds: Normal heart sounds. Pulmonary: Effort: No respiratory distress. Breath sounds: Normal breath sounds. Musculoskeletal: General: Tenderness present. Skin: General: Skin is warm and dry. Findings: No bruising. Neurological: Mental Status: She is oriented to person, place, and time. Gait: Gait abnormal. Bilateral tenderness above the knees into the thighs with palpation. Knees are soft and appear edematous without pitting but patient denies swelling. Bends legs without difficulty. Monitored gait, which is slightly stooped , slow and some shuffling, guarding due to pain with ambulation. Leg strength with resistance good. Sensation intact, no paresthesia LE Assessment & Plan Bilateral leg pain Orders: XR LUMBAR GENERAL 3V AP/LAT/L5-S1; Future XR KNEE GENERAL 4V AP BOTH/PA BOTH/LAT/MERC BILATERAL; Future predniSONE (DELTASONE) 10 mg tablet; Take 4 tabs daily x 3 days, then 3 tabs x 3 days, 2 tabs x 3 days, then 1 tab x3 days with food. Primary osteoarthritis of both knees Orders: XR LUMBAR GENERAL 3V AP/LAT/L5-S1; Future XR KNEE GENERAL 4V AP BOTH/PA BOTH/LAT/MERC BILATERAL; Future predniSONE (DELTASONE) 10 mg tablet; Take 4 tabs daily x 3 days, then 3 tabs x 3 days, 2 tabs x 3 days, then 1 tab x3 days with food. - discussed follow up as needed and pending her xray results as she may benefit from an orthopedic consult if it's related to worsening arthritis or discussing with Dr Dixon's office. Will send notes to Dr Dixon's office as well so they are aware. Spinal stenosis of lumbar region with neurogenic claudication Orders: XR LUMBAR GENERAL 3V AP/LAT/L5-S1; Future XR KNEE GENERAL 4V AP BOTH/PA BOTH/LAT/MERC BILATERAL; Future predniSONE (DELTASONE) 10 mg tablet; Take 4 tabs daily x 3 days, then 3 tabs x 3 days, 2 tabs x 3 days, then 1 tab x3 days with food. Chronic pain syndrome Orders: gabapentin (NEURONTIN) 100 mg capsule; Take 1 capsule by mouth two times a day for 30 days. gabapentin (NEURONTIN) 100 mg capsule; Take 2 capsules by mouth daily at bedtime for 30 days. - managed by pain management (Dr Dixon),medication just updated from current orders Neuropathy - (NOS) Orders: gabapentin (NEURONTIN) 100 mg capsule; Take 1 capsule by mouth two times a day for 30 days. gabapentin (NEURONTIN) 100 mg capsule; Take 2 capsules by mouth daily at bedtime for 30 days. -managed by pain management (Dr Dixon),medication just updated from current orders Pain in left forearm Orders: gabapentin (NEURONTIN) 100 mg capsule; Take 1 capsule by mouth two times a day for 30 days. gabapentin (NEURONTIN) 100 mg capsule; Take 2 capsules by mouth daily at bedtime for 30 days. -managed by pain management (Dr Dixon),medication just updated from current orders Zahida Perry APRN.MEASUREMENT ADVISOR Recording using [employer] software for draft documentation of the visit was discussed with the patient/authorized inside outside sales representative; all questions welcomed and answered. Patient/authorized inside outside sales representative agreed to proceed documented in this encounter [facility] 11-02-2024 History of Present illness Narrative Radiology Service Progress Note PATIENT NAME: Libia Najera DATE OF SERVICE: November 02, 2024 TIME: 11:03 AM PATIENT IDENTITY VERIFICATION COMPLETED USING TWO (2) IDENTIFIERS: Name and Date of confirmed by patient verbally. FALL SCREENING: Has the patient had 2 falls in the last year or 1 fall with injury or currently using an Ambulatory Assistive Device (Walker, Cane, Wheelchair, Crutches, etc.)? No PATIENT GENDER DATA: Assigned female at . status: : No status: NO. PATIENT RELEVANT IMPLANT DATA REVIEWED: Not Applicable PATIENT PRESENTS WITH AN IMPLANTABLE OR ATTACHED SHEET PILE DRIVER OPERATOR: No RADIOLOGY DEPARTMENT: General X-ray: Exam(s) Completed: Lower Extremity X-Ray(s): Knee, AP / Lat / Tunne / Merchant Bilateral PERIPHERAL IV DATA: Not applicable SIGNED BY: Scot Rucker November 02, 2024 11:03 AM documented in this encounter [facility] 11-02-2024 Note HNO ID: [id number] Author: ROSA DOSHI Tech Service: ? Author Type: Technologist Type: Progress Notes Filed: 11/02/2024 11:03 Note Text: Radiology Service Progress Note PATIENT NAME: Libia Najera DATE OF SERVICE: November 02, 2024 TIME: 11:03 AM PATIENT IDENTITY VERIFICATION COMPLETED USING TWO (2) IDENTIFIERS: Name and Date of confirmed by patient verbally. FALL SCREENING: Has the patient had 2 falls in the last year or 1 fall with injury or currently using an Ambulatory Assistive Device (Walker, Cane, Wheelchair, Crutches, etc.)? No PATIENT GENDER DATA: Assigned female at . status: : No status: NO. PATIENT RELEVANT IMPLANT DATA REVIEWED: Not Applicable PATIENT PRESENTS WITH AN IMPLANTABLE OR ATTACHED SHEET PILE DRIVER OPERATOR: No RADIOLOGY DEPARTMENT: General X-ray: Exam(s) Completed: Lower Extremity X-Ray(s): Knee, AP / Lat / Tunne / Merchant Bilateral PERIPHERAL IV DATA: Not applicable SIGNED BY: Scot Rucker November 02, 2024 11:03 AM [facility] 11-02-2024 Instructions Zahida Perry APRN.MEASUREMENT ADVISOR - 11/02/2024 10:23 AM EDT A short course of prednisone (a steroid taper) has been ordered to help reduce inflammation and ease your pain. Take it as directed by the pharmacy. Orders have been placed for an x-ray of your lumbar spine and an x-ray of your knees. These should be completed as you leave today. Continue using Tylenol as needed for pain when you are at home. May use the topical motrin as well to your knees Keep engaging in low impact activities like walking, as this can help manage arthritis pain. documented in this encounter [facility] 11-02-2024 Grace Cedeno APRN.MEASUREMENT ADVISOR - 11/02/2024 8:25 AM EDT ASSESSMENT/PLAN: 1. Bilateral impacted cerumen - ICD9: 380.4, ICD10: H61.23 - Cerumen removed via irrigation by RN HOUSE SUPERVISOR, patient tolerated procedure well. Remaining wax removed from right ear with lighted curette by this PHLEBOTOMY SUPPORT TECH. Post procedure ear canal is clear and TM is well visualized with bony landmarks intact and no sign of inflammation/infection. - AMBULATORY EAR LAVAGE/IRRIGATION Grace Briceño APRN.MEASUREMENT ADVISOR Ear wax buildup and blockage (cerumen impaction) What is ear wax? Ear wax, also called cerumen, is made by the body to protect the ears. The ear wax has both lubricating and antibacterial properties. Most of the time, the old ear wax is moved through the ear canal by motions from chewing and other jaw movements and as the skin of the ear canal grows from the inside out. At that time, it reaches the outside of the ear and flakes off. Ear wax is produced in the outer part of the ear canal, not deep inside the ear. What does it mean when ear wax becomes impacted? We say that ear wax is impacted when it has built up in the ear canal to such a point that there may be signs that something is not quite right. It is important to note that, for most people, ears might never need cleaning--they are designed to clean themselves. Ear wax buildup and blockage often happens when people use items like cotton swabs or debbie pins to try to clean their ears. This only pushes the ear wax farther into the ears and can also cause injury to the ear. What are the symptoms of ear wax impaction? A feeling of fullness in the ear Pain in the ear Difficulty hearing, which may continue to worsen Ringing in the ear (tinnitus) A feeling of itchiness in the ear Discharge from the ear Odor coming from the ear Dizziness Who experiences ear wax buildup? Ear wax buildup can happen to anyone. However, it is more likely to occur in: People who use hearing aids or ear plugs People who put cotton swabs or other items into their ears Older people People with developmental disabilities People with ear canals shaped in such a way as to interfere with natural wax removal How is ear wax impaction diagnosed? Your health care provider can look into your ears with a special instrument, called an otoscope, to see if ear wax buildup is present. How is ear wax impaction treated? Ear wax can be removed in several ways; some of these methods can be done at home. Cleaning the outside of the ear by wiping with a cloth. Putting cerumenolytic solutions (solutions to dissolve wax) into the ear canal--these solutions include mineral oil, baby oil, glycerin, peroxide-based ear drops (such as Debrox ), hydrogen peroxide, and saline solution. Irrigating or syringing the ear--this involves using a syringe to rinse out the ear canal with water or saline, generally after the wax has been softened or dissolved by a cerumenolytic. Removing the wax manually using special instruments--this should be done only by a health care provider who might use a cerumen spoon, forceps, or suction device. Note: Irrigation should not be done by or to any persons who have, or suspect they have, a perforation (hole) in their eardrum or tubes in the affected ear(s). Commercially available suction devices for home use (such as Wax-Vac) are not effective for most people and are therefore not recommended. Ear candles, which are advertised as a natural method to remove ear wax, are not only ineffective but can cause injury to the ear. Injuries include rosas to the external ear and ear canal and perforation of the eardrum. What are possible complications of ear wax impaction? If left untreated, excessive ear wax may cause symptoms of ear wax impaction to become worse. These symptoms might include hearing loss, ear irritation, etc. A build-up of ear wax might also make it difficult to see into the ear, which may result in potential problems going undiagnosed. How can ear wax impaction be prevented? Do not stick anything into your ears to clean them. Use cotton swabs only on the outside of the ear. If you have a severe enough problem with ear wax that you need to have it removed by a health professional more than once a year, discuss with them which method of prevention (if any) may work best for you. References [place] [employer]--Head [employer] Neck [employer]. Earwax Accessed 06/06/2013. [employer] [employer]. Nothing Smaller Than Your Elbow, Please Accessed 06/06/2013. Copyright 1963-8279 [facility]. All rights reserved This information is provided by the [facility] and is not intended to replace the medical advice of your doctor or health care provider. Please consult your health care provider for advice about a specific medical condition. For additional health information, please contact the [facility] for [employer] [facility] Information at the [facility] or toll-free extension [phone]. If you prefer, you may visit [email or web address] or [email or web address]. This document was last reviewed on: 2017 documented in this encounter [facility] 11-02-2024 Note HNO ID: [id number] Author: GRACE BRICEÑO APRN.MEASUREMENT ADVISOR Service: ? Author Type: Nurse Practitioner Type: Progress Notes Filed: 11/02/2024 08:42 Note Text: [facility] Subjective Libia Najera is a 84 year old female. Patient presents with: Ear Problem: Bilat ear clogged, unable to hear for awhile Ear Problem Associated symptoms include hearing loss. Pertinent negatives include no coughing, rash, rhinorrhea or sore throat. Libia Najera is a 84 year old female who presents with ears feeling clogged and unable to hear recently. States 'feels like something was crawling around in her left ear. She denies pain or fever. Denies associated URI symptoms. She has not used any medications for the ear symptoms. Review of Systems Constitutional: Negative for chills and fever. HENT: Positive for hearing loss. Negative for congestion, ear pain, postnasal drip, rhinorrhea, sinus pain, sneezing and sore throat. Respiratory: Negative for cough. Cardiovascular: Negative. Skin: Negative for color change and rash. Objective BP 104/81 Pulse (!) 54 Temp 36.7 ?C (98 ?F) Resp 20 Wt 88 kg (194 lb 0.1 oz) SpO2 97% BMI 31.31 kg/m? PAST MEDICAL HISTORY Diagnosis Date - Arthritis - Arthropathy, unspecified, site unspecified - Backache, unspecified - CKD (chronic kidney disease) stage 3, GFR 30-59 ml/min ([facility]) 07/31/2018 - Diverticulosis of colon (without mention of hemorrhage) - Essential hypertension, benign - Female stress incontinence mild - Melanoma ([facility]) 09/03/2020 Right anterior proximal upper arm - Nonspecific abnormal electrocardiogram (ECG) (EKG) PAC - Other and unspecified hyperlipidemia - Reactive depression 07/31/2018 - Symptomatic menopausal or female climacteric states PAST SURGICAL HISTORY Procedure Laterality Date - ABDOMINAL SURGERY HX - APPENDECTOMY - APPENDECTOMY HX - CHOLECSTOT/CHOLECSTOST W/EXPL DRG/RMVL ST1 SPX - COLONOSCOPY FLX DX W/COLLJ SPEC WHEN PFRMD 2001 Colonoscopy - COLONOSCOPY FLX DX W/COLLJ SPEC WHEN PFRMD 01/05/2012 Colonoscopy - COLONOSCOPY FLX DX W/COLLJ SPEC WHEN PFRMD 01/13/2021 - DILATION AND CURETTAGE DXAND/THER NONOBSTETRIC Dilation AND curettage - ESOPHAGOGASTRODUODENOSCOPY TRANSORAL DIAGNOSTIC 01/13/2021 - EXC/DSTRJ LINGUAL TONSIL ANY METHOD SPX - LIG/TRNSXJ FLP TUBE ABDL/VAG APPR UNI/BI Tubal ligation - NEUROPLASTY AND/TRANSPOS MEDIAN NRV CARPAL TUNNE 06/08/2011 Carpal tunnel decomp, right - PAST SURGICAL HISTORY OF 2007 removal growth between toes =left - PAST SURGICAL HISTORY OF Multple myeloma's - [facility]IAN N/CARPAL TUNNEL SURG 06/28/2013 left CTR - [facility] N/CARPAL TUNNEL SURG Left 01/29/2022 Left Carpal tunnel release with nerve wrap - SALPINGO-OOPHORECTOMY COMPL/PRTL UNI/BI SPX 2002 Salpingo-oophorectomy - SKIN BIOPSY HX - TOTAL ABDOMINAL HYSTERECT W/WO RMVL TUBE OVARY 2002 Hysterectomy, ELLIOT - VAGINAL HYSTERECTOMY ALLERGIES Patient has no known allergies. MEDICATIONS - omeprazole (PRILOSEC) 40 mg capsule Take 1 capsule by mouth once daily. - pravastatin (PRAVACHOL) 40 mg tablet Take 1 tablet by mouth once daily. - lisinopril-hydroCHLOROthiazide (ZESTORETIC) 10-12.5 mg per tablet Take 1 tablet by mouth every morning. - gabapentin (NEURONTIN) 100 mg capsule Take 100 mg by mouth three times a day. - latanoprost (XALATAN) 0.005 % ophthalmic solution Use 1 Drop in both eyes daily at bedtime. TO AFFECTED EYE(S) - Blood Pressure Cuff - Home Use BLOOD PRESSURE CUFF FOR HOME USE. DX: LABILE BLOOD PRESSURE - Calcium Carbonate-Vitamin D2 600 mg calcium- 200 unit tab Take 1 tablet by mouth once daily. FAMILY HISTORY Problem Relation Age of Onset - Heart Mother - Diabetes Mother - Cancer Mother UTERUS - Diabetes Father - Heart Father - Cancer Maternal Grandmother UTERUS - Colon Cancer Daughter Social History Tobacco Use - Smoking status: Never - Smokeless tobacco: Never Vaping Use - Vaping status: Never Used Substance Use Topics - Alcohol use: No - Drug use: No Physical Exam Vitals and nursing note reviewed. Constitutional: General: She is not in acute distress. Appearance: Normal appearance. She is not ill-appearing. HENT: Right Ear: Ear canal and external ear normal. Decreased hearing noted. No drainage, swelling or tenderness. There is impacted cerumen. Left Ear: Ear canal and external ear normal. Decreased hearing noted. No drainage, swelling or tenderness. There is impacted cerumen. Ears: Comments: Bilateral ears: Cerumen impairs exam of clinically significant portions of the external auditory canal, tympanic membrane or middle ear condition. Nose: Nose normal. Mouth/Throat: Mouth: Mucous membranes are moist. Pharynx: Oropharynx is clear. No oropharyngeal exudate or posterior oropharyngeal erythema. Cardiovascular: Rate and Rhythm: Normal rate and regular rhythm. Heart sounds: Normal heart sound (more content not included)... [facility] 10-24-2024 Note Formatting of this n ote might be different from the original. The patient received a copy of Colonoscopy discharge instructions that contain information for how to contact the physician who performed the procedure and when to seek medical care. [facility] 10-24-2024 Miscellaneous Notes The patient received a copy of Colonoscopy discharge instructions that contain information for how to contact the physician who performed the procedure and when to seek medical care. documented in this encounter [facility] 10-24-2024 Attending History and physical note UPDATED PROCEDURAL SEDATION HISTORY AND PHYSICAL EXAMINATION SERVICE DATE: 10/24/2024 SERVICE TIME: 11:15 AM PHYSICAL EXAM MUST BE COMPLETED ON ADMISSION PROCEDURE: Procedure Indications: The History and Physical (completed in the past 30 days) has been reviewed and the patient has been examined. The contents accurately reflect the patient's condition with the following additions or revisions since the H&P was completed. ASA Class: ASA Class: Patient with mild systemic disease Examination indicates no changes. AIRWAY: Mouth opening greater than 3 fingerbreadths: Yes Neck Full Range of Motion: Yes LUNGS: Lungs clear to auscultation CARDIAC: Regular rhythm,Regular rate Provisional Diagnosis/Treatment Plan: personal history of polyps - Colonoscopy Sedation Goal: Moderate This H&P can be found in the attached. SIGNATURE: Rafy Raza MD PATIENT NAME: Libia Najera DATE: October 24, 2024 TIME: 11:15 AM Source Note - Rafy Raza MD - 10/24/2024 10:30 AM EDT HISTORY AND PHYSICAL Libia Najera : 1940 REFERRING PHYSICIAN: No referring provider defined for this encounter. CHIEF COMPLAINT: Patient presents with: Consult HPI: Libia is a 84 year old female referred for endoscopy. Libia notes due for colon cancer screening-hx of polyps (2020). Libia denies abdominal pain.. Libia denies diarrhea. Libia denies constipation. Libia notes a change in bowel habits in July which has returned almost back to normal. -bowel habits have become more frequent: 3-4 a day -soft & formed -not using fiber -denies watery diarrhea Libia denies melena. Libia denies bright red blood per rectum. Libia denies hemorrhoids. Libia notes family history of colon issues colon cancer in daughter & grandson Libia notes a distant history of heartburn. -takes Prilosec daily with symptom relief Libia denies dysphagia. Libia denies a history of ulcers/ peptic ulcer disease. Libia has undergone prior endoscopy. Last colonoscopy was 12/[address] Raza at [facility]. Sedation:Midazolam 4 mg IV, Fentanyl 75 micrograms IV, Ondansetron 4 mg IV EGD Impression: - Normal examined jejunum. - Normal examined duodenum. - Gastritis. Biopsied. - A single gastric polyp. Resected and retrieved. Clip (MR conditional) was placed. - Normal esophagus. COLONOSCOPY Impression: - Three 5 to 18 mm polyps in the rectum and in the descending colon, removed with a cold snare. Resected and retrieved. Clip (MR conditional) was placed. - The examination was otherwise normal. CONVERTED FINAL DIAGNOSIS 1. Antrum, biopsy (A) - Antral mucosa with chronic inactive gastritis. - Negative for Helicobacter pylori (immunostain). 2. Gastric polyp, biopsy (B) - Fundic gland polyp. 3. Sigmoid colon, polyp, biospy (C) - Tubular adenoma. 4. Rectum, polyps, biopsy (D) - Tubular adenoma. MIREYA/lk 01/14/2021 CURRENT MEDICATIONS Current Outpatient Medications Medication Sig gabapentin (NEURONTIN) 100 mg capsule TAKE 1 CAPSULE BY MOUTH AT BEDTIME X 3 DAYS THEN 1 CAP TWICE DAILY X 3 DAYS THEN 1 CAP 3 TIMES DAILY lisinopril-hydroCHLOROthiazide (ZESTORETIC) 10-12.5 mg per tablet Take 1 tablet by mouth every morning. pravastatin (PRAVACHOL) 40 mg tablet Take 1 tablet by mouth once daily. omeprazole (PRILOSEC) 40 mg capsule Take 1 capsule by mouth once daily. latanoprost (XALATAN) 0.005 % ophthalmic solution Use 1 Drop in both eyes daily at bedtime. TO AFFECTED EYE(S) Calcium Carbonate-Vitamin D2 600 mg calcium- 200 unit tab Take 1 tablet by mouth once daily. peg 3350-Electrolytes (GOLYTELY) 236-22.74-6.74 -5.86 gram suspension Take 4,000 mL by mouth one time only for 1 dose. Refer to printed prep instructions from your provider. polyethylene glycol 3350 (MIRALAX ORAL) Take by mouth. (Patient not taking: Reported on 09/06/2024) Blood Pressure Cuff - Home Use BLOOD PRESSURE CUFF FOR HOME USE. DX: LABILE BLOOD PRESSURE No current facility-administered medications for this visit. ALLERGIES: Patient has no known allergies. PAST MEDICAL HISTORY PAST MEDICAL HISTORY Diagnosis Date Arthritis Arthropathy, unspecified, site unspecified Backache, unspecified CKD (chronic kidney disease) stage 3, GFR 30-59 ml/min ([facility]) 07/31/2018 Diverticulosis of colon (without mention of hemorrhage) Essential hypertension, benign Female stress incontinence mild Melanoma ([facility]) 09/03/2020 Right anterior proximal upper arm Nonspecific abnormal electrocardiogram (ECG) (EKG) PAC Other and unspecified hyperlipidemia Reactive depression 07/31/2018 Symptomatic menopausal or female climacteric states PAST SURGICAL HISTORY PAST SURGICAL HISTORY Procedure Laterality Date ABDOMINAL SURGERY HX APPENDECTOMY APPENDECTOMY HX CHOLECSTOT/CHOLECSTOST W/EXPL DRG/RMVL ST1 SPX COLONOSCOPY FLX DX W/COLLJ SPEC WHEN PFRMD 2001 Colonoscopy COLONOSCOPY FLX DX W/COLLJ SPEC WHEN PFRMD 01/05/2012 Colonoscopy COLONOSCOPY FLX DX W/COLLJ SPEC WHEN PFRMD 01/13/2021 DILATION & CURETTAGE DX&/THER NONOBSTETRIC Dilation & curettage ESOPHAGOGASTRODUODENOSCOPY TRANSORAL DIAGNOSTIC 01/13/2021 EXC/DSTRJ LINGUAL TONSIL ANY METHOD SPX LIG/TRNSXJ FLP TUBE ABDL/VAG APPR UNI/BI Tubal ligation NEUROPLASTY &/TRANSPOS MEDIAN NRV CARPAL TUNNE 06/08/2011 Carpal tunnel decomp, right PAST SURGICAL HISTORY OF 2007 removal growth between toes =left PAST SURGICAL HISTORY OF Multple myeloma's REVISE MEDIAN N/CARPAL TUNNEL SURG 06/28/2013 left CTR REVISE MEDIAN N/CARPAL TUNNEL SURG Left 01/29/2022 Left Carpal tunnel release with nerve wrap SALPINGO-OOPHORECTOMY COMPL/PRTL UNI/BI SPX 2003 Salpingo-oophorectomy SKIN BIOPSY HX TOTAL ABDOMINAL HYSTERECT W/WO RMVL TUBE OVARY 2003 Hysterectomy, ELLIOT VAGINAL HYSTERECTOMY FAMILY HISTORY FAMILY HISTORY Problem Relation Age of Onset Heart Mother Diabetes Mother Cancer Mother UTERUS Diabetes Father Heart Father Cancer Maternal Grandmother UTERUS Colon Cancer Daughter SOCIAL HISTORY Social History Tobacco Use Smoking status: Never Smokeless tobacco: Never Vaping Use Vaping status: Never Used Substance Use Topics Alcohol use: No Drug use: No REVIEW OF SYMPTOMS: The review of systems data was entered by the nurse and reviewed by me SEE NURSING NOTE PHYSICAL EXAMINATION: General: The patient is 84 year old, female well nourished, well hydrated in no acute distress. The patient is oriented to time, place, and person. VITALS: Blood pressure 152/76, pulse 77, temperature 36.9 C (98.4 F), temperature source Temporal Artery, resp. rate 17, weight 89 kg (196 lb 3.2 oz), SpO2 97%. Body mass index is 31.67 kg/m . HEENT: Normal cephalic, ataumatic, pupils are equally round, sclera are anicteric, mucous membranes are moist, oropharynx is clear. Neck has no masses, asymmetry or lymphadenopathy. Respiratory: Clear to auscultation and percussion. Normal respiratory excursion and pattern. Cardiac: Examination is regular rate and rhythm. Normal S1/S2 Abdominal exam: Soft, nontender, with no palpable masses. No hepatosplenomegaly. No palpable hernias. Extremities: no clubbing, cyanosis or edema. No adenopathy. LABORATORY VALUES: As Noted RADIOLOGIC STUDIES: As Noted Assessment IMPRESSION: screen for colon cancer, family history of colon cancer, history of polyps PLAN: I have reviewed my findings with the surgeon. Will plan for lower endoscopy. We discussed the risks and benefits of the planned endoscopy. I have informed the patient that complications can occur including failure to complete the endoscopy and perforation. Libia had the opportunity to ask questions concerning the planned endoscopy. My staff has also explained the procedure to the patient in understandable terms and has given the patient printed material concerning the procedure. Libia freely consents to surgery. I plan to use Golytely bowel preparation I have explained to the patient the difference between IV conscious sedation and MAC anesthesia - and I have offered either, according to the patient's wishes. I have explained that with IV conscious sedation there is no anesthesia provider available and therefore there is a limitation of the amount of IV medications that can be given and that the patient may wake up in the middle of the procedure and/or experience pain/discomfort during the procedure. Further discussion was done and the patient was given the opportunity to ask questions and all questions were answered. Libia chooses IV conscious sedation. Libia was counseled that if there are changes in his/her medical condition, to let the office know if surgery should proceed. If there are changes in patient's medical condition from time of this encounter to the day of the procedure that preclude anesthesia, patient may have procedure cancelled for patient's safety. Diagnoses: (Z12.11) Screen for colon cancer (primary encounter diagnosis) (Z80.0) Family history of colon cancer (Z86.0100) History of colonic polyps Consultation requested by Nina Marley CNP for an opinion regarding frequent bowel movements & hx of tubular adenomas. My final recommendations will be communicated back to the requesting physician by way of shared Medical record or letter to requesting physician via [place] mail. Portions of this documentation were copied and pasted from previous office visit notes in order to provide a cohesive continuity of the history. The note has been reviewed and edited and updated as necessary. Laurie Wilson APRN.MEASUREMENT ADVISOR [facility] 10-24-2024 Attending History and physical note UPDATED PROCEDURAL SEDATION HISTORY AND PHYSICAL EXAMINATION SERVICE DATE: 10/24/2024 SERVICE TIME: 1120 PHYSICAL EXAM MUST BE COMPLETED ON ADMISSION PROCEDURE: Procedure Indications: The History and Physical (completed in the past 30 days) has been reviewed and the patient has been examined. The contents accurately reflect the patient's condition with the following additions or revisions since the H&P was completed. ASA Class: ASA Class: Patient with mild systemic disease Examination indicates no changes. AIRWAY: Mouth opening greater than 3 fingerbreadths: Yes Neck Full Range of Motion: Yes LUNGS: Lungs clear to auscultation CARDIAC: Regular rhythm,Regular rate Provisional Diagnosis/Treatment Plan: history of polyps - colonoscopy Sedation Goal: Moderate This H&P can be found in the attached. SIGNATURE: Rafy Raza MD PATIENT NAME: Libia Najera DATE: October 24, 2024 TIME: 11:46 AM Source Note - Rafy Raza MD - 10/24/2024 10:30 AM EDT HISTORY AND PHYSICAL Liiba Najera : 1940 REFERRING PHYSICIAN: No referring provider defined for this encounter. CHIEF COMPLAINT: Patient presents with: Consult HPI: Libia is a 84 year old female referred for endoscopy. Libia notes due for colon cancer screening-hx of polyps (2020). Libia denies abdominal pain.. Libia denies diarrhea. Libia denies constipation. Libia notes a change in bowel habits in July which has returned almost back to normal. -bowel habits have become more frequent: 3-4 a day -soft & formed -not using fiber -denies watery diarrhea Libia denies melena. Libia denies bright red blood per rectum. Libia denies hemorrhoids. Libia notes family history of colon issues colon cancer in daughter & grandson Libia notes a distant history of heartburn. -takes Prilosec daily with symptom relief Libia denies dysphagia. Libia denies a history of ulcers/ peptic ulcer disease. Libia has undergone prior endoscopy. Last colonoscopy was 12/[address] Raza at [facility]. Sedation:Midazolam 4 mg IV, Fentanyl 75 micrograms IV, Ondansetron 4 mg IV EGD Impression: - Normal examined jejunum. - Normal examined duodenum. - Gastritis. Biopsied. - A single gastric polyp. Resected and retrieved. Clip (MR conditional) was placed. - Normal esophagus. COLONOSCOPY Impression: - Three 5 to 18 mm polyps in the rectum and in the descending colon, removed with a cold snare. Resected and retrieved. Clip (MR conditional) was placed. - The examination was otherwise normal. CONVERTED FINAL DIAGNOSIS 1. Antrum, biopsy (A) - Antral mucosa with chronic inactive gastritis. - Negative for Helicobacter pylori (immunostain). 2. Gastric polyp, biopsy (B) - Fundic gland polyp. 3. Sigmoid colon, polyp, biospy (C) - Tubular adenoma. 4. Rectum, polyps, biopsy (D) - Tubular adenoma. MIREYA/toshia 01/14/2021 CURRENT MEDICATIONS Current Outpatient Medications Medication Sig gabapentin (NEURONTIN) 100 mg capsule TAKE 1 CAPSULE BY MOUTH AT BEDTIME X 3 DAYS THEN 1 CAP TWICE DAILY X 3 DAYS THEN 1 CAP 3 TIMES DAILY lisinopril-hydroCHLOROthiazide (ZESTORETIC) 10-12.5 mg per tablet Take 1 tablet by mouth every morning. pravastatin (PRAVACHOL) 40 mg tablet Take 1 tablet by mouth once daily. omeprazole (PRILOSEC) 40 mg capsule Take 1 capsule by mouth once daily. latanoprost (XALATAN) 0.005 % ophthalmic solution Use 1 Drop in both eyes daily at bedtime. TO AFFECTED EYE(S) Calcium Carbonate-Vitamin D2 600 mg calcium- 200 unit tab Take 1 tablet by mouth once daily. peg 3350-Electrolytes (GOLYTELY) 236-22.74-6.74 -5.86 gram suspension Take 4,000 mL by mouth one time only for 1 dose. Refer to printed prep instructions from your provider. polyethylene glycol 3350 (MIRALAX ORAL) Take by mouth. (Patient not taking: Reported on 09/06/2024) Blood Pressure Cuff - Home Use BLOOD PRESSURE CUFF FOR HOME USE. DX: LABILE BLOOD PRESSURE No current facility-administered medications for this visit. ALLERGIES: Patient has no known allergies. PAST MEDICAL HISTORY PAST MEDICAL HISTORY Diagnosis Date Arthritis Arthropathy, unspecified, site unspecified Backache, unspecified CKD (chronic kidney disease) stage 3, GFR 30-59 ml/min ([facility]) 07/31/2018 Diverticulosis of colon (without mention of hemorrhage) Essential hypertension, benign Female stress incontinence mild Melanoma ([facility]) 09/03/2020 Right anterior proximal upper arm Nonspecific abnormal electrocardiogram (ECG) (EKG) PAC Other and unspecified hyperlipidemia Reactive depression 07/31/2018 Symptomatic menopausal or female climacteric states PAST SURGICAL HISTORY PAST SURGICAL HISTORY Procedure Laterality Date ABDOMINAL SURGERY HX APPENDECTOMY APPENDECTOMY HX CHOLECSTOT/CHOLECSTOST W/EXPL DRG/RMVL ST1 SPX COLONOSCOPY FLX DX W/COLLJ SPEC WHEN PFRMD 2001 Colonoscopy COLONOSCOPY FLX DX W/COLLJ SPEC WHEN PFRMD 01/05/2012 Colonoscopy COLONOSCOPY FLX DX W/COLLJ SPEC WHEN PFRMD 01/13/2021 DILATION & CURETTAGE DX&/THER NONOBSTETRIC Dilation & curettage ESOPHAGOGASTRODUODENOSCOPY TRANSORAL DIAGNOSTIC 01/13/2021 EXC/DSTRJ LINGUAL TONSIL ANY METHOD SPX LIG/TRNSXJ FLP TUBE ABDL/VAG APPR UNI/BI Tubal ligation NEUROPLASTY &/TRANSPOS MEDIAN NRV CARPAL TUNNE 06/08/2011 Carpal tunnel decomp, right PAST SURGICAL HISTORY OF 2007 removal growth between toes =left PAST SURGICAL HISTORY OF Multple myeloma's REVISE MEDIAN N/CARPAL TUNNEL SURG 06/28/2013 left CTR REVISE MEDIAN N/CARPAL TUNNEL SURG Left 01/29/2022 Left Carpal tunnel release with nerve wrap SALPINGO-OOPHORECTOMY COMPL/PRTL UNI/BI SPX 2003 Salpingo-oophorectomy SKIN BIOPSY HX TOTAL ABDOMINAL HYSTERECT W/WO RMVL TUBE OVARY 2003 Hysterectomy, ELLIOT VAGINAL HYSTERECTOMY FAMILY HISTORY FAMILY HISTORY Problem Relation Age of Onset Heart Mother Diabetes Mother Cancer Mother UTERUS Diabetes Father Heart Father Cancer Maternal Grandmother UTERUS Colon Cancer Daughter SOCIAL HISTORY Social History Tobacco Use Smoking status: Never Smokeless tobacco: Never Vaping Use Vaping status: Never Used Substance Use Topics Alcohol use: No Drug use: No REVIEW OF SYMPTOMS: The review of systems data was entered by the nurse and reviewed by me SEE NURSING NOTE PHYSICAL EXAMINATION: General: The patient is 84 year old, female well nourished, well hydrated in no acute distress. The patient is oriented to time, place, and person. VITALS: Blood pressure 152/76, pulse 77, temperature 36.9 C (98.4 F), temperature source Temporal Artery, resp. rate 17, weight 89 kg (196 lb 3.2 oz), SpO2 97%. Body mass index is 31.67 kg/m . HEENT: Normal cephalic, ataumatic, pupils are equally round, sclera are anicteric, mucous membranes are moist, oropharynx is clear. Neck has no masses, asymmetry or lymphadenopathy. Respiratory: Clear to auscultation and percussion. Normal respiratory excursion and pattern. Cardiac: Examination is regular rate and rhythm. Normal S1/S2 Abdominal exam: Soft, nontender, with no palpable masses. No hepatosplenomegaly. No palpable hernias. Extremities: no clubbing, cyanosis or edema. No adenopathy. LABORATORY VALUES: As Noted RADIOLOGIC STUDIES: As Noted Assessment IMPRESSION: screen for colon cancer, family history of colon cancer, history of polyps PLAN: I have reviewed my findings with the surgeon. Will plan for lower endoscopy. We discussed the risks and benefits of the planned endoscopy. I have informed the patient that complications can occur including failure to complete the endoscopy and perforation. Libia had the opportunity to ask questions concerning the planned endoscopy. My staff has also explained the procedure to the patient in understandable terms and has given the patient printed material concerning the procedure. Libia freely consents to surgery. I plan to use Golytely bowel preparation I have explained to the patient the difference between IV conscious sedation and MAC anesthesia - and I have offered either, according to the patient's wishes. I have explained that with IV conscious sedation there is no anesthesia provider available and therefore there is a limitation of the amount of IV medications that can be given and that the patient may wake up in the middle of the procedure and/or experience pain/discomfort during the procedure. Further discussion was done and the patient was given the opportunity to ask questions and all questions were answered. Libia chooses IV conscious sedation. Libia was counseled that if there are changes in his/her medical condition, to let the office know if surgery should proceed. If there are changes in patient's medical condition from time of this encounter to the day of the procedure that preclude anesthesia, patient may have procedure cancelled for patient's safety. Diagnoses: (Z12.11) Screen for colon cancer (primary encounter diagnosis) (Z80.0) Family history of colon cancer (Z86.0100) History of colonic polyps Consultation requested by Nina Marley CNP for an opinion regarding frequent bowel movements & hx of tubular adenomas. My final recommendations will be communicated back to the requesting physician by way of shared Medical record or letter to requesting physician via [place] mail. Portions of this documentation were copied and pasted from previous office visit notes in order to provide a cohesive continuity of the history. The note has been reviewed and edited and updated as necessary. Laurie Wilson APRN.MEASUREMENT ADVISOR [facility] 10-24-2024 History and physical note HISTORY AND PHYSICAL Libia Najera : 1940 REFERRING PHYSICIAN: No referring provider defined for this encounter. CHIEF COMPLAINT: Patient presents with: Consult HPI: Libia is a 84 year old female referred for endoscopy. Libia notes due for colon cancer screening-hx of polyps (2020). Libia denies abdominal pain.. Libia denies diarrhea. Libia denies constipation. Libia notes a change in bowel habits in July which has returned almost back to normal. -bowel habits have become more frequent: 3-4 a day -soft & formed -not using fiber -denies watery diarrhea Libia denies melena. Libia denies bright red blood per rectum. Libia denies hemorrhoids. Libia notes family history of colon issues colon cancer in daughter & grandson Libia notes a distant history of heartburn. -takes Prilosec daily with symptom relief Libia denies dysphagia. Libia denies a history of ulcers/ peptic ulcer disease. Libia has undergone prior endoscopy. Last colonoscopy was 12/[address] Raza at [facility]. Sedation:Midazolam 4 mg IV, Fentanyl 75 micrograms IV, Ondansetron 4 mg IV EGD Impression: - Normal examined jejunum. - Normal examined duodenum. - Gastritis. Biopsied. - A single gastric polyp. Resected and retrieved. Clip (MR conditional) was placed. - Normal esophagus. COLONOSCOPY Impression: - Three 5 to 18 mm polyps in the rectum and in the descending colon, removed with a cold snare. Resected and retrieved. Clip (MR conditional) was placed. - The examination was otherwise normal. CONVERTED FINAL DIAGNOSIS 1. Antrum, biopsy (A) - Antral mucosa with chronic inactive gastritis. - Negative for Helicobacter pylori (immunostain). 2. Gastric polyp, biopsy (B) - Fundic gland polyp. 3. Sigmoid colon, polyp, biospy (C) - Tubular adenoma. 4. Rectum, polyps, biopsy (D) - Tubular adenoma. MIREYA/lk 01/14/2021 CURRENT MEDICATIONS Current Outpatient Medications Medication Sig gabapentin (NEURONTIN) 100 mg capsule TAKE 1 CAPSULE BY MOUTH AT BEDTIME X 3 DAYS THEN 1 CAP TWICE DAILY X 3 DAYS THEN 1 CAP 3 TIMES DAILY lisinopril-hydroCHLOROthiazide (ZESTORETIC) 10-12.5 mg per tablet Take 1 tablet by mouth every morning. pravastatin (PRAVACHOL) 40 mg tablet Take 1 tablet by mouth once daily. omeprazole (PRILOSEC) 40 mg capsule Take 1 capsule by mouth once daily. latanoprost (XALATAN) 0.005 % ophthalmic solution Use 1 Drop in both eyes daily at bedtime. TO AFFECTED EYE(S) Calcium Carbonate-Vitamin D2 600 mg calcium- 200 unit tab Take 1 tablet by mouth once daily. peg 3350-Electrolytes (GOLYTELY) 236-22.74-6.74 -5.86 gram suspension Take 4,000 mL by mouth one time only for 1 dose. Refer to printed prep instructions from your provider. polyethylene glycol 3350 (MIRALAX ORAL) Take by mouth. (Patient not taking: Reported on 09/06/2024) Blood Pressure Cuff - Home Use BLOOD PRESSURE CUFF FOR HOME USE. DX: LABILE BLOOD PRESSURE No current facility-administered medications for this visit. ALLERGIES: Patient has no known allergies. PAST MEDICAL HISTORY PAST MEDICAL HISTORY Diagnosis Date Arthritis Arthropathy, unspecified, site unspecified Backache, unspecified CKD (chronic kidney disease) stage 3, GFR 30-59 ml/min ([facility]) 07/31/2018 Diverticulosis of colon (without mention of hemorrhage) Essential hypertension, benign Female stress incontinence mild Melanoma ([facility]) 09/03/2020 Right anterior proximal upper arm Nonspecific abnormal electrocardiogram (ECG) (EKG) PAC Other and unspecified hyperlipidemia Reactive depression 07/31/2018 Symptomatic menopausal or female climacteric states PAST SURGICAL HISTORY PAST SURGICAL HISTORY Procedure Laterality Date ABDOMINAL SURGERY HX APPENDECTOMY APPENDECTOMY HX CHOLECSTOT/CHOLECSTOST W/EXPL DRG/RMVL ST1 SPX COLONOSCOPY FLX DX W/COLLJ SPEC WHEN PFRMD 2001 Colonoscopy COLONOSCOPY FLX DX W/COLLJ SPEC WHEN PFRMD 01/05/2012 Colonoscopy COLONOSCOPY FLX DX W/COLLJ SPEC WHEN PFRMD 01/13/2021 DILATION & CURETTAGE DX&/THER NONOBSTETRIC Dilation & curettage ESOPHAGOGASTRODUODENOSCOPY TRANSORAL DIAGNOSTIC 01/13/2021 EXC/DSTRJ LINGUAL TONSIL ANY METHOD SPX LIG/TRNSXJ FLP TUBE ABDL/VAG APPR UNI/BI Tubal ligation NEUROPLASTY &/TRANSPOS MEDIAN NRV CARPAL TUNNE 06/08/2011 Carpal tunnel decomp, right PAST SURGICAL HISTORY OF 2007 removal growth between toes =left PAST SURGICAL HISTORY OF Multple myeloma's REVISE MEDIAN N/CARPAL TUNNEL SURG 06/28/2013 left CTR REVISE MEDIAN N/CARPAL TUNNEL SURG Left 01/29/2022 Left Carpal tunnel release with nerve wrap SALPINGO-OOPHORECTOMY COMPL/PRTL UNI/BI SPX 2003 Salpingo-oophorectomy SKIN BIOPSY HX TOTAL ABDOMINAL HYSTERECT W/WO RMVL TUBE OVARY 2003 Hysterectomy, ELLIOT VAGINAL HYSTERECTOMY FAMILY HISTORY FAMILY HISTORY Problem Relation Age of Onset Heart Mother Diabetes Mother Cancer Mother UTERUS Diabetes Father Heart Father Cancer Maternal Grandmother UTERUS Colon Cancer Daughter SOCIAL HISTORY Social History Tobacco Use Smoking status: Never Smokeless tobacco: Never Vaping Use Vaping status: Never Used Substance Use Topics Alcohol use: No Drug use: No REVIEW OF SYMPTOMS: The review of systems data was entered by the nurse and reviewed by me SEE NURSING NOTE PHYSICAL EXAMINATION: General: The patient is 84 year old, female well nourished, well hydrated in no acute distress. The patient is oriented to time, place, and person. VITALS: Blood pressure 152/76, pulse 77, temperature 36.9 C (98.4 F), temperature source Temporal Artery, resp. rate 17, weight 89 kg (196 lb 3.2 oz), SpO2 97%. Body mass index is 31.67 kg/m . HEENT: Normal cephalic, ataumatic, pupils are equally round, sclera are anicteric, mucous membranes are moist, oropharynx is clear. Neck has no masses, asymmetry or lymphadenopathy. Respiratory: Clear to auscultation and percussion. Normal respiratory excursion and pattern. Cardiac: Examination is regular rate and rhythm. Normal S1/S2 Abdominal exam: Soft, nontender, with no palpable masses. No hepatosplenomegaly. No palpable hernias. Extremities: no clubbing, cyanosis or edema. No adenopathy. LABORATORY VALUES: As Noted RADIOLOGIC STUDIES: As Noted Assessment IMPRESSION: screen for colon cancer, family history of colon cancer, history of polyps PLAN: I have reviewed my findings with the surgeon. Will plan for lower endoscopy. We discussed the risks and benefits of the planned endoscopy. I have informed the patient that complications can occur including failure to complete the endoscopy and perforation. Libia had the opportunity to ask questions concerning the planned endoscopy. My staff has also explained the procedure to the patient in understandable terms and has given the patient printed material concerning the procedure. Libia freely consents to surgery. I plan to use Golytely bowel preparation I have explained to the patient the difference between IV conscious sedation and MAC anesthesia - and I have offered either, according to the patient's wishes. I have explained that with IV conscious sedation there is no anesthesia provider available and therefore there is a limitation of the amount of IV medications that can be given and that the patient may wake up in the middle of the procedure and/or experience pain/discomfort during the procedure. Further discussion was done and the patient was given the opportunity to ask questions and all questions were answered. Libia chooses IV conscious sedation. Libia was counseled that if there are changes in his/her medical condition, to let the office know if surgery should proceed. If there are changes in patient's medical condition from time of this encounter to the day of the procedure that preclude anesthesia, patient may have procedure cancelled for patient's safety. Diagnoses: (Z12.11) Screen for colon cancer (primary encounter diagnosis) (Z80.0) Family history of colon cancer (Z86.0100) History of colonic polyps Consultation requested by Nina Marley CNP for an opinion regarding frequent bowel movements & hx of tubular adenomas. My final recommendations will be communicated back to the requesting physician by way of shared Medical record or letter to requesting physician via [place] mail. Portions of this documentation were copied and pasted from previous office visit notes in order to provide a cohesive continuity of the history. The note has been reviewed and edited and updated as necessary. Laurie Wilson APRN.MEASUREMENT ADVISOR [facility] 10-24-2024 History and physical note UPDATED PROCEDURAL SEDATION HISTORY AND PHYSICAL EXAMINATION SERVICE DATE: 10/24/2024 SERVICE TIME: 11:15 AM PHYSICAL EXAM MUST BE COMPLETED ON ADMISSION PROCEDURE: Procedure Indications: The History and Physical (completed in the past 30 days) has been reviewed and the patient has been examined. The contents accurately reflect the patient's condition with the following additions or revisions since the H&P was completed. ASA Class: ASA Class: Patient with mild systemic disease Examination indicates no changes. AIRWAY: Mouth opening greater than 3 fingerbreadths: Yes Neck Full Range of Motion: Yes LUNGS: Lungs clear to auscultation CARDIAC: Regular rhythm,Regular rate Provisional Diagnosis/Treatment Plan: personal history of polyps - Colonoscopy Sedation Goal: Moderate This H&P can be found in the attached. SIGNATURE: Rafy Raza MD PATIENT NAME: Libia Najera DATE: October 24, 2024 TIME: 11:15 AM Source Note - Rafy Raza MD - 10/24/2024 10:30 AM EDT HISTORY AND PHYSICAL Libia Najera : 1940 REFERRING PHYSICIAN: No referring provider defined for this encounter. CHIEF COMPLAINT: Patient presents with: Consult HPI: Libia is a 84 year old female referred for endoscopy. Libia notes due for colon cancer screening-hx of polyps (2020). Libia denies abdominal pain.. Libia denies diarrhea. Libia denies constipation. Libia notes a change in bowel habits in July which has returned almost back to normal. -bowel habits have become more frequent: 3-4 a day -soft & formed -not using fiber -denies watery diarrhea Libia denies melena. Libia denies bright red blood per rectum. Libia denies hemorrhoids. Libia notes family history of colon issues colon cancer in daughter & grandson Libia notes a distant history of heartburn. -takes Prilosec daily with symptom relief Libia denies dysphagia. Libia denies a history of ulcers/ peptic ulcer disease. Libia has undergone prior endoscopy. Last colonoscopy was 12/[address] Raza at [facility]. Sedation:Midazolam 4 mg IV, Fentanyl 75 micrograms IV, Ondansetron 4 mg IV EGD Impression: - Normal examined jejunum. - Normal examined duodenum. - Gastritis. Biopsied. - A single gastric polyp. Resected and retrieved. Clip (MR conditional) was placed. - Normal esophagus. COLONOSCOPY Impression: - Three 5 to 18 mm polyps in the rectum and in the descending colon, removed with a cold snare. Resected and retrieved. Clip (MR conditional) was placed. - The examination was otherwise normal. CONVERTED FINAL DIAGNOSIS 1. Antrum, biopsy (A) - Antral mucosa with chronic inactive gastritis. - Negative for Helicobacter pylori (immunostain). 2. Gastric polyp, biopsy (B) - Fundic gland polyp. 3. Sigmoid colon, polyp, biospy (C) - Tubular adenoma. 4. Rectum, polyps, biopsy (D) - Tubular adenoma. MIREYA/toshia 01/14/2021 CURRENT MEDICATIONS Current Outpatient Medications Medication Sig gabapentin (NEURONTIN) 100 mg capsule TAKE 1 CAPSULE BY MOUTH AT BEDTIME X 3 DAYS THEN 1 CAP TWICE DAILY X 3 DAYS THEN 1 CAP 3 TIMES DAILY lisinopril-hydroCHLOROthiazide (ZESTORETIC) 10-12.5 mg per tablet Take 1 tablet by mouth every morning. pravastatin (PRAVACHOL) 40 mg tablet Take 1 tablet by mouth once daily. omeprazole (PRILOSEC) 40 mg capsule Take 1 capsule by mouth once daily. latanoprost (XALATAN) 0.005 % ophthalmic solution Use 1 Drop in both eyes daily at bedtime. TO AFFECTED EYE(S) Calcium Carbonate-Vitamin D2 600 mg calcium- 200 unit tab Take 1 tablet by mouth once daily. peg 3350-Electrolytes (GOLYTELY) 236-22.74-6.74 -5.86 gram suspension Take 4,000 mL by mouth one time only for 1 dose. Refer to printed prep instructions from your provider. polyethylene glycol 3350 (MIRALAX ORAL) Take by mouth. (Patient not taking: Reported on 09/06/2024) Blood Pressure Cuff - Home Use BLOOD PRESSURE CUFF FOR HOME USE. DX: LABILE BLOOD PRESSURE No current facility-administered medications for this visit. ALLERGIES: Patient has no known allergies. PAST MEDICAL HISTORY PAST MEDICAL HISTORY Diagnosis Date Arthritis Arthropathy, unspecified, site unspecified Backache, unspecified CKD (chronic kidney disease) stage 3, GFR 30-59 ml/min ([facility]) 07/31/2018 Diverticulosis of colon (without mention of hemorrhage) Essential hypertension, benign Female stress incontinence mild Melanoma ([facility]) 09/03/2020 Right anterior proximal upper arm Nonspecific abnormal electrocardiogram (ECG) (EKG) PAC Other and unspecified hyperlipidemia Reactive depression 07/31/2018 Symptomatic menopausal or female climacteric states PAST SURGICAL HISTORY PAST SURGICAL HISTORY Procedure Laterality Date ABDOMINAL SURGERY HX APPENDECTOMY APPENDECTOMY HX CHOLECSTOT/CHOLECSTOST W/EXPL DRG/RMVL ST1 SPX COLONOSCOPY FLX DX W/COLLJ SPEC WHEN PFRMD 2001 Colonoscopy COLONOSCOPY FLX DX W/COLLJ SPEC WHEN PFRMD 01/05/2012 Colonoscopy COLONOSCOPY FLX DX W/COLLJ SPEC WHEN PFRMD 01/13/2021 DILATION & CURETTAGE DX&/THER NONOBSTETRIC Dilation & curettage ESOPHAGOGASTRODUODENOSCOPY TRANSORAL DIAGNOSTIC 01/13/2021 EXC/DSTRJ LINGUAL TONSIL ANY METHOD SPX LIG/TRNSXJ FLP TUBE ABDL/VAG APPR UNI/BI Tubal ligation NEUROPLASTY &/TRANSPOS MEDIAN NRV CARPAL TUNNE 06/08/2011 Carpal tunnel decomp, right PAST SURGICAL HISTORY OF 2006 removal growth between toes =left PAST SURGICAL HISTORY OF Multple myeloma's REVISE MEDIAN N/CARPAL TUNNEL SURG 06/28/2013 left CTR REVISE MEDIAN N/CARPAL TUNNEL SURG Left 01/29/2022 Left Carpal tunnel release with nerve wrap SALPINGO-OOPHORECTOMY COMPL/PRTL UNI/BI SPX 2003 Salpingo-oophorectomy SKIN BIOPSY HX TOTAL ABDOMINAL HYSTERECT W/WO RMVL TUBE OVARY 2003 Hysterectomy, ELLIOT VAGINAL HYSTERECTOMY FAMILY HISTORY FAMILY HISTORY Problem Relation Age of Onset Heart Mother Diabetes Mother Cancer Mother UTERUS Diabetes Father Heart Father Cancer Maternal Grandmother UTERUS Colon Cancer Daughter SOCIAL HISTORY Social History Tobacco Use Smoking status: Never Smokeless tobacco: Never Vaping Use Vaping status: Never Used Substance Use Topics Alcohol use: No Drug use: No REVIEW OF SYMPTOMS: The review of systems data was entered by the nurse and reviewed by me SEE NURSING NOTE PHYSICAL EXAMINATION: General: The patient is 84 year old, female well nourished, well hydrated in no acute distress. The patient is oriented to time, place, and person. VITALS: Blood pressure 152/76, pulse 77, temperature 36.9 C (98.4 F), temperature source Temporal Artery, resp. rate 17, weight 89 kg (196 lb 3.2 oz), SpO2 97%. Body mass index is 31.67 kg/m . HEENT: Normal cephalic, ataumatic, pupils are equally round, sclera are anicteric, mucous membranes are moist, oropharynx is clear. Neck has no masses, asymmetry or lymphadenopathy. Respiratory: Clear to auscultation and percussion. Normal respiratory excursion and pattern. Cardiac: Examination is regular rate and rhythm. Normal S1/S2 Abdominal exam: Soft, nontender, with no palpable masses. No hepatosplenomegaly. No palpable hernias. Extremities: no clubbing, cyanosis or edema. No adenopathy. LABORATORY VALUES: As Noted RADIOLOGIC STUDIES: As Noted Assessment IMPRESSION: screen for colon cancer, family history of colon cancer, history of polyps PLAN: I have reviewed my findings with the surgeon. Will plan for lower endoscopy. We discussed the risks and benefits of the planned endoscopy. I have informed the patient that complications can occur including failure to complete the endoscopy and perforation. Libia had the opportunity to ask questions concerning the planned endoscopy. My staff has also explained the procedure to the patient in understandable terms and has given the patient printed material concerning the procedure. Libia freely consents to surgery. I plan to use Golytely bowel preparation I have explained to the patient the difference between IV conscious sedation and MAC anesthesia - and I have offered either, according to the patient's wishes. I have explained that with IV conscious sedation there is no anesthesia provider available and therefore there is a limitation of the amount of IV medications that can be given and that the patient may wake up in the middle of the procedure and/or experience pain/discomfort during the procedure. Further discussion was done and the patient was given the opportunity to ask questions and all questions were answered. Libia chooses IV conscious sedation. Libia was counseled that if there are changes in his/her medical condition, to let the office know if surgery should proceed. If there are changes in patient's medical condition from time of this encounter to the day of the procedure that preclude anesthesia, patient may have procedure cancelled for patient's safety. Diagnoses: (Z12.11) Screen for colon cancer (primary encounter diagnosis) (Z80.0) Family history of colon cancer (Z86.0100) History of colonic polyps Consultation requested by Nina Marley CNP for an opinion regarding frequent bowel movements & hx of tubular adenomas. My final recommendations will be communicated back to the requesting physician by way of shared Medical record or letter to requesting physician via [place] mail. Portions of this documentation were copied and pasted from previous office visit notes in order to provide a cohesive continuity of the history. The note has been reviewed and edited and updated as necessary. Laurie Wilson APRN.CNP UPDATED PROCEDURAL SEDATION HISTORY AND PHYSICAL EXAMINATION SERVICE DATE: 10/24/2024 SERVICE TIME: 1120 PHYSICAL EXAM MUST BE COMPLETED ON ADMISSION PROCEDURE: Procedure Indications: The History and Physical (completed in the past 30 days) has been reviewed and the patient has been examined. The contents accurately reflect the patient's condition with the following additions or revisions since the H&P was completed. ASA Class: ASA Class: Patient with mild systemic disease Examination indicates no changes. AIRWAY: Mouth opening greater than 3 fingerbreadths: Yes Neck Full Range of Motion: Yes LUNGS: Lungs clear to auscultation CARDIAC: Regular rhythm,Regular rate Provisional Diagnosis/Treatment Plan: history of polyps - colonoscopy Sedation Goal: Moderate This H&P can be found in the attached. SIGNATURE: Rafy Raza MD PATIENT NAME: Libia Najera DATE: October 24, 2024 TIME: 11:46 AM Source Note - Rafy Raza MD - 10/24/2024 10:30 AM EDT HISTORY AND PHYSICAL Libia Najera : 1940 REFERRING PHYSICIAN: No referring provider defined for this encounter. CHIEF COMPLAINT: Patient presents with: Consult HPI: Libia is a 84 year old female referred for endoscopy. Libia notes due for colon cancer screening-hx of polyps (2020). Libia denies abdominal pain.. Libia denies diarrhea. Libia denies constipation. Libia notes a change in bowel habits in July which has returned almost back to normal. -bowel habits have become more frequent: 3-4 a day -soft & formed -not using fiber -denies watery diarrhea Libia denies melena. Libia denies bright red blood per rectum. Libia denies hemorrhoids. Libia notes family history of colon issues colon cancer in daughter & grandson Libia notes a distant history of heartburn. -takes Prilosec daily with symptom relief Libia denies dysphagia. Libia denies a history of ulcers/ peptic ulcer disease. Libia has undergone prior endoscopy. Last colonoscopy was 12/[address] Raza at [facility]. Sedation:Midazolam 4 mg IV, Fentanyl 75 micrograms IV, Ondansetron 4 mg IV EGD Impression: - Normal examined jejunum. - Normal examined duodenum. - Gastritis. Biopsied. - A single gastric polyp. Resected and retrieved. Clip (MR conditional) was placed. - Normal esophagus. COLONOSCOPY Impression: - Three 5 to 18 mm polyps in the rectum and in the descending colon, removed with a cold snare. Resected and retrieved. Clip (MR conditional) was placed. - The examination was otherwise normal. CONVERTED FINAL DIAGNOSIS 1. Antrum, biopsy (A) - Antral mucosa with chronic inactive gastritis. - Negative for Helicobacter pylori (immunostain). 2. Gastric polyp, biopsy (B) - Fundic gland polyp. 3. Sigmoid colon, polyp, biospy (C) - Tubular adenoma. 4. Rectum, polyps, biopsy (D) - Tubular adenoma. MIREYA/lk 01/14/2021 CURRENT MEDICATIONS Current Outpatient Medications Medication Sig gabapentin (NEURONTIN) 100 mg capsule TAKE 1 CAPSULE BY MOUTH AT BEDTIME X 3 DAYS THEN 1 CAP TWICE DAILY X 3 DAYS THEN 1 CAP 3 TIMES DAILY lisinopril-hydroCHLOROthiazide (ZESTORETIC) 10-12.5 mg per tablet Take 1 tablet by mouth every morning. pravastatin (PRAVACHOL) 40 mg tablet Take 1 tablet by mouth once daily. omeprazole (PRILOSEC) 40 mg capsule Take 1 capsule by mouth once daily. latanoprost (XALATAN) 0.005 % ophthalmic solution Use 1 Drop in both eyes daily at bedtime. TO AFFECTED EYE(S) Calcium Carbonate-Vitamin D2 600 mg calcium- 200 unit tab Take 1 tablet by mouth once daily. peg 3350-Electrolytes (GOLYTELY) 236-22.74-6.74 -5.86 gram suspension Take 4,000 mL by mouth one time only for 1 dose. Refer to printed prep instructions from your provider. polyethylene glycol 3350 (MIRALAX ORAL) Take by mouth. (Patient not taking: Reported on 09/06/2024) Blood Pressure Cuff - Home Use BLOOD PRESSURE CUFF FOR HOME USE. DX: LABILE BLOOD PRESSURE No current facility-administered medications for this visit. ALLERGIES: Patient has no known allergies. PAST MEDICAL HISTORY PAST MEDICAL HISTORY Diagnosis Date Arthritis Arthropathy, unspecified, site unspecified Backache, unspecified CKD (chronic kidney disease) stage 3, GFR 30-59 ml/min ([facility]) 07/31/2018 Diverticulosis of colon (without mention of hemorrhage) Essential hypertension, benign Female stress incontinence mild Melanoma ([facility]) 09/03/2020 Right anterior proximal upper arm Nonspecific abnormal electrocardiogram (ECG) (EKG) PAC Other and unspecified hyperlipidemia Reactive depression 07/31/2018 Symptomatic menopausal or female climacteric states PAST SURGICAL HISTORY PAST SURGICAL HISTORY Procedure Laterality Date ABDOMINAL SURGERY HX APPENDECTOMY APPENDECTOMY HX CHOLECSTOT/CHOLECSTOST W/EXPL DRG/RMVL ST1 SPX COLONOSCOPY FLX DX W/COLLJ SPEC WHEN PFRMD 2001 Colonoscopy COLONOSCOPY FLX DX W/COLLJ SPEC WHEN PFRMD 01/05/2012 Colonoscopy COLONOSCOPY FLX DX W/COLLJ SPEC WHEN PFRMD 01/13/2021 DILATION & CURETTAGE DX&/THER NONOBSTETRIC Dilation & curettage ESOPHAGOGASTRODUODENOSCOPY TRANSORAL DIAGNOSTIC 01/13/2021 EXC/DSTRJ LINGUAL TONSIL ANY METHOD SPX LIG/TRNSXJ FLP TUBE ABDL/VAG APPR UNI/BI Tubal ligation NEUROPLASTY &/TRANSPOS MEDIAN NRV CARPAL TUNNE 06/08/2011 Carpal tunnel decomp, right PAST SURGICAL HISTORY OF 2007 removal growth between toes =left PAST SURGICAL HISTORY OF Multple myeloma's REVISE MEDIAN N/CARPAL TUNNEL SURG 06/28/2013 left CTR REVISE MEDIAN N/CARPAL TUNNEL SURG Left 01/29/2022 Left Carpal tunnel release with nerve wrap SALPINGO-OOPHORECTOMY COMPL/PRTL UNI/BI SPX 2002 Salpingo-oophorectomy SKIN BIOPSY HX TOTAL ABDOMINAL HYSTERECT W/WO RMVL TUBE OVARY 2003 Hysterectomy, ELLIOT VAGINAL HYSTERECTOMY FAMILY HISTORY FAMILY HISTORY Problem Relation Age of Onset Heart Mother Diabetes Mother Cancer Mother UTERUS Diabetes Father Heart Father Cancer Maternal Grandmother UTERUS Colon Cancer Daughter SOCIAL HISTORY Social History Tobacco Use Smoking status: Never Smokeless tobacco: Never Vaping Use Vaping status: Never Used Substance Use Topics Alcohol use: No Drug use: No REVIEW OF SYMPTOMS: The review of systems data was entered by the nurse and reviewed by me SEE NURSING NOTE PHYSICAL EXAMINATION: General: The patient is 84 year old, female well nourished, well hydrated in no acute distress. The patient is oriented to time, place, and person. VITALS: Blood pressure 152/76, pulse 77, temperature 36.9 C (98.4 F), temperature source Temporal Artery, resp. rate 17, weight 89 kg (196 lb 3.2 oz), SpO2 97%. Body mass index is 31.67 kg/m . HEENT: Normal cephalic, ataumatic, pupils are equally round, sclera are anicteric, mucous membranes are moist, oropharynx is clear. Neck has no masses, asymmetry or lymphadenopathy. Respiratory: Clear to auscultation and percussion. Normal respiratory excursion and pattern. Cardiac: Examination is regular rate and rhythm. Normal S1/S2 Abdominal exam: Soft, nontender, with no palpable masses. No hepatosplenomegaly. No palpable hernias. Extremities: no clubbing, cyanosis or edema. No adenopathy. LABORATORY VALUES: As Noted RADIOLOGIC STUDIES: As Noted Assessment IMPRESSION: screen for colon cancer, family history of colon cancer, history of polyps PLAN: I have reviewed my findings with the surgeon. Will plan for lower endoscopy. We discussed the risks and benefits of the planned endoscopy. I have informed the patient that complications can occur including failure to complete the endoscopy and perforation. Libia had the opportunity to ask questions concerning the planned endoscopy. My staff has also explained the procedure to the patient in understandable terms and has given the patient printed material concerning the procedure. Libia freely consents to surgery. I plan to use Golytely bowel preparation I have explained to the patient the difference between IV conscious sedation and MAC anesthesia - and I have offered either, according to the patient's wishes. I have explained that with IV conscious sedation there is no anesthesia provider available and therefore there is a limitation of the amount of IV medications that can be given and that the patient may wake up in the middle of the procedure and/or experience pain/discomfort during the procedure. Further discussion was done and the patient was given the opportunity to ask questions and all questions were answered. Libia chooses IV conscious sedation. Libia was counseled that if there are changes in his/her medical condition, to let the office know if surgery should proceed. If there are changes in patient's medical condition from time of this encounter to the day of the procedure that preclude anesthesia, patient may have procedure cancelled for patient's safety. Diagnoses: (Z12.11) Screen for colon cancer (primary encounter diagnosis) (Z80.0) Family history of colon cancer (Z86.0100) History of colonic polyps Consultation requested by Nina Marley CNP for an opinion regarding frequent bowel movements & hx of tubular adenomas. My final recommendations will be communicated back to the requesting physician by way of shared Medical record or letter to requesting physician via [place] mail. Portions of this documentation were copied and pasted from previous office visit notes in order to provide a cohesive continuity of the history. The note has been reviewed and edited and updated as necessary. Laurie Wilson APRN.CNP HISTORY AND PHYSICAL Libia Najera : 1940 REFERRING PHYSICIAN: No referring provider defined for this encounter. CHIEF COMPLAINT: Patient presents with: Consult HPI: Libia is a 84 year old female referred for endoscopy. Libia notes due for colon cancer screening-hx of polyps (2020). Libia denies abdominal pain.. Libia denies diarrhea. Libia denies constipation. Libia notes a change in bowel habits in July which has returned almost back to normal. -bowel habits have become more frequent: 3-4 a day -soft & formed -not using fiber -denies watery diarrhea Libia denies melena. Libia denies bright red blood per rectum. Libia denies hemorrhoids. Libia notes family history of colon issues colon cancer in daughter & grandson Libia notes a distant history of heartburn. -takes Prilosec daily with symptom relief Libia denies dysphagia. Libia denies a history of ulcers/ peptic ulcer disease. Libia has undergone prior endoscopy. Last colonoscopy was 12/[address] Raza at [facility]. Sedation:Midazolam 4 mg IV, Fentanyl 75 micrograms IV, Ondansetron 4 mg IV EGD Impression: - Normal examined jejunum. - Normal examined duodenum. - Gastritis. Biopsied. - A single gastric polyp. Resected and retrieved. Clip (MR conditional) was placed. - Normal esophagus. COLONOSCOPY Impression: - Three 5 to 18 mm polyps in the rectum and in the descending colon, removed with a cold snare. Resected and retrieved. Clip (MR conditional) was placed. - The examination was otherwise normal. CONVERTED FINAL DIAGNOSIS 1. Antrum, biopsy (A) - Antral mucosa with chronic inactive gastritis. - Negative for Helicobacter pylori (immunostain). 2. Gastric polyp, biopsy (B) - Fundic gland polyp. 3. Sigmoid colon, polyp, biospy (C) - Tubular adenoma. 4. Rectum, polyps, biopsy (D) - Tubular adenoma. MIREYA/toshia 01/14/2021 CURRENT MEDICATIONS Current Outpatient Medications Medication Sig gabapentin (NEURONTIN) 100 mg capsule TAKE 1 CAPSULE BY MOUTH AT BEDTIME X 3 DAYS THEN 1 CAP TWICE DAILY X 3 DAYS THEN 1 CAP 3 TIMES DAILY lisinopril-hydroCHLOROthiazide (ZESTORETIC) 10-12.5 mg per tablet Take 1 tablet by mouth every morning. pravastatin (PRAVACHOL) 40 mg tablet Take 1 tablet by mouth once daily. omeprazole (PRILOSEC) 40 mg capsule Take 1 capsule by mouth once daily. latanoprost (XALATAN) 0.005 % ophthalmic solution Use 1 Drop in both eyes daily at bedtime. TO AFFECTED EYE(S) Calcium Carbonate-Vitamin D2 600 mg calcium- 200 unit tab Take 1 tablet by mouth once daily. peg 3350-Electrolytes (GOLYTELY) 236-22.74-6.74 -5.86 gram suspension Take 4,000 mL by mouth one time only for 1 dose. Refer to printed prep instructions from your provider. polyethylene glycol 3350 (MIRALAX ORAL) Take by mouth. (Patient not taking: Reported on 09/06/2024) Blood Pressure Cuff - Home Use BLOOD PRESSURE CUFF FOR HOME USE. DX: LABILE BLOOD PRESSURE No current facility-administered medications for this visit. ALLERGIES: Patient has no known allergies. PAST MEDICAL HISTORY PAST MEDICAL HISTORY Diagnosis Date Arthritis Arthropathy, unspecified, site unspecified Backache, unspecified CKD (chronic kidney disease) stage 3, GFR 30-59 ml/min ([facility]) 07/31/2018 Diverticulosis of colon (without mention of hemorrhage) Essential hypertension, benign Female stress incontinence mild Melanoma ([facility]) 09/03/2020 Right anterior proximal upper arm Nonspecific abnormal electrocardiogram (ECG) (EKG) PAC Other and unspecified hyperlipidemia Reactive depression 07/31/2018 Symptomatic menopausal or female climacteric states PAST SURGICAL HISTORY PAST SURGICAL HISTORY Procedure Laterality Date ABDOMINAL SURGERY HX APPENDECTOMY APPENDECTOMY HX CHOLECSTOT/CHOLECSTOST W/EXPL DRG/RMVL ST1 SPX COLONOSCOPY FLX DX W/COLLJ SPEC WHEN PFRMD 2001 Colonoscopy COLONOSCOPY FLX DX W/COLLJ SPEC WHEN PFRMD 01/05/2012 Colonoscopy COLONOSCOPY FLX DX W/COLLJ SPEC WHEN PFRMD 01/13/2021 DILATION & CURETTAGE DX&/THER NONOBSTETRIC Dilation & curettage ESOPHAGOGASTRODUODENOSCOPY TRANSORAL DIAGNOSTIC 01/13/2021 EXC/DSTRJ LINGUAL TONSIL ANY METHOD SPX LIG/TRNSXJ FLP TUBE ABDL/VAG APPR UNI/BI Tubal ligation NEUROPLASTY &/TRANSPOS MEDIAN NRV CARPAL TUNNE 06/08/2011 Carpal tunnel decomp, right PAST SURGICAL HISTORY OF 2007 removal growth between toes =left PAST SURGICAL HISTORY OF Multple myeloma's REVISE MEDIAN N/CARPAL TUNNEL SURG 06/28/2013 left CTR REVISE MEDIAN N/CARPAL TUNNEL SURG Left 01/29/2022 Left Carpal tunnel release with nerve wrap SALPINGO-OOPHORECTOMY COMPL/PRTL UNI/BI SPX 2003 Salpingo-oophorectomy SKIN BIOPSY HX TOTAL ABDOMINAL HYSTERECT W/WO RMVL TUBE OVARY 2003 Hysterectomy, ELLIOT VAGINAL HYSTERECTOMY FAMILY HISTORY FAMILY HISTORY Problem Relation Age of Onset Heart Mother Diabetes Mother Cancer Mother UTERUS Diabetes Father Heart Father Cancer Maternal Grandmother UTERUS Colon Cancer Daughter SOCIAL HISTORY Social History Tobacco Use Smoking status: Never Smokeless tobacco: Never Vaping Use Vaping status: Never Used Substance Use Topics Alcohol use: No Drug use: No REVIEW OF SYMPTOMS: The review of systems data was entered by the nurse and reviewed by me SEE NURSING NOTE PHYSICAL EXAMINATION: General: The patient is 84 year old, female well nourished, well hydrated in no acute distress. The patient is oriented to time, place, and person. VITALS: Blood pressure 152/76, pulse 77, temperature 36.9 C (98.4 F), temperature source Temporal Artery, resp. rate 17, weight 89 kg (196 lb 3.2 oz), SpO2 97%. Body mass index is 31.67 kg/m . HEENT: Normal cephalic, ataumatic, pupils are equally round, sclera are anicteric, mucous membranes are moist, oropharynx is clear. Neck has no masses, asymmetry or lymphadenopathy. Respiratory: Clear to auscultation and percussion. Normal respiratory excursion and pattern. Cardiac: Examination is regular rate and rhythm. Normal S1/S2 Abdominal exam: Soft, nontender, with no palpable masses. No hepatosplenomegaly. No palpable hernias. Extremities: no clubbing, cyanosis or edema. No adenopathy. LABORATORY VALUES: As Noted RADIOLOGIC STUDIES: As Noted Assessment IMPRESSION: screen for colon cancer, family history of colon cancer, history of polyps PLAN: I have reviewed my findings with the surgeon. Will plan for lower endoscopy. We discussed the risks and benefits of the planned endoscopy. I have informed the patient that complications can occur including failure to complete the endoscopy and perforation. Libia had the opportunity to ask questions concerning the planned endoscopy. My staff has also explained the procedure to the patient in understandable terms and has given the patient printed material concerning the procedure. Libia freely consents to surgery. I plan to use Golytely bowel preparation I have explained to the patient the difference between IV conscious sedation and MAC anesthesia - and I have offered either, according to the patient's wishes. I have explained that with IV conscious sedation there is no anesthesia provider available and therefore there is a limitation of the amount of IV medications that can be given and that the patient may wake up in the middle of the procedure and/or experience pain/discomfort during the procedure. Further discussion was done and the patient was given the opportunity to ask questions and all questions were answered. Libia chooses IV conscious sedation. Libia was counseled that if there are changes in his/her medical condition, to let the office know if surgery should proceed. If there are changes in patient's medical condition from time of this encounter to the day of the procedure that preclude anesthesia, patient may have procedure cancelled for patient's safety. Diagnoses: (Z12.11) Screen for colon cancer (primary encounter diagnosis) (Z80.0) Family history of colon cancer (Z86.0100) History of colonic polyps Consultation requested by Nina Marley CNP for an opinion regarding frequent bowel movements & hx of tubular adenomas. My final recommendations will be communicated back to the requesting physician by way of shared Medical record or letter to requesting physician via [place] mail. Portions of this documentation were copied and pasted from previous office visit notes in order to provide a cohesive continuity of the history. The note has been reviewed and edited and updated as necessary. Laurie Wilson APRN.MEASUREMENT ADVISOR documented in this encounter [facility] 10-23-2024 Telephone encounter Note Prescription Refill Information The patient has been identified by name and date of : Yes Caregiver verified no other encounters exist for this prescription request: Yes Caregiver confirmed with patient/requestor that no other refills are due, in the near future, with this provider at this time: Yes The last office visit in the department: 10/03/2024 Does the patient have a future office visit with this provider/department: Yes Requested Prescriptions Pending Prescriptions Disp Refills omeprazole (PRILOSEC) 40 mg capsule 90 capsule 3 Sig: Take 1 capsule by mouth once daily. pravastatin (PRAVACHOL) 40 mg tablet 90 tablet 3 Sig: Take 1 tablet by mouth once daily. Simin Awad October 23, 2024 8:35 AM [facility] 10-23-2024 Miscellaneous Notes Prescription Refill Information The patient has been identified by name and date of : Yes Caregiver verified no other encounters exist for this prescription request: Yes Caregiver confirmed with patient/requestor that no other refills are due, in the near future, with this provider at this time: Yes The last office visit in the department: 10/03/2024 Does the patient have a future office visit with this provider/department: Yes Requested Prescriptions Pending Prescriptions Disp Refills omeprazole (PRILOSEC) 40 mg capsule 90 capsule 3 Sig: Take 1 capsule by mouth once daily. pravastatin (PRAVACHOL) 40 mg tablet 90 tablet 3 Sig: Take 1 tablet by mouth once daily. Simin Awad October 23, 2024 8:35 AM documented in this encounter [facility] 10-05-2024 Telephone encounter Note Patient informed. She will increase her fluids and recheck labs in 1 week. Alyx Rankin MA [facility] 10-05-2024 Miscellaneous Notes Patient informed. She will increase her fluids and recheck labs in 1 week. Alyx Rankin MA Can stay on for now Patient informed and verbalized understanding. She does take a multivitamin with calcium in it. Should she stop this? Alyx Rankin MA ----- Message from Braulio Whitney MD sent at 10/04/2024 4:01 PM EDT ----- Labs are stable. Except calcium is mildly up and kidney functions are mildly down. Push fluids an recheck labs in one week documented in this encounter [facility] 10-05-2024 Telephone encounter Note Can stay on for now [facility] 10-05-2024 Telephone encounter Note Patient informed and verbalized understanding. She does take a multivitamin with calcium in it. Should she stop this? Alyx Rankin MA [facility] 10-05-2024 Telephone encounter Note ----- Message from Braulio Whitney MD sent at 10/04/2024 4:01 PM EDT ----- Labs are stable. Except calcium is mildly up and kidney functions are mildly down. Push fluids an recheck labs in one week [facility] 10-03-2024 Note HNO ID: [id number] Author: BRAULIO WHITNEY MD Service: ? Author Type: Physician Type: Progress Notes Filed: 10/03/2024 11:50 Note Text: Patient presents with: 6 Month Exam HPI: Patient presents today for office visit for follow up. HYPERTENSION: doing well Denies chest pain, shortness of breath. No new dizziness. Gerd: doing well. Follows with her eye doc No myalgias. Tolerating statin. Monitoring her renal function. Avoid nsaids. Having pain with recent scar on left forearm from skin cancer excision. Now seeing Dr Dixon for same. Spinal stenosis causes some pain in the am but better as day progresses. MEDICATIONS: Current Outpatient Medications Medication Sig gabapentin (NEURONTIN) 100 mg capsule Take 100 mg by mouth three times a day. pravastatin (PRAVACHOL) 40 mg tablet Take 1 tablet by mouth once daily. omeprazole (PRILOSEC) 40 mg capsule Take 1 capsule by mouth once daily. latanoprost (XALATAN) 0.005 % ophthalmic solution Use 1 Drop in both eyes daily at bedtime. TO AFFECTED EYE(S) Calcium Carbonate-Vitamin D2 600 mg calcium- 200 unit tab Take 1 tablet by mouth once daily. lisinopril-hydroCHLOROthiazide (ZESTORETIC) 10-12.5 mg per tablet Take 1 tablet by mouth every morning. Blood Pressure Cuff - Home Use BLOOD PRESSURE CUFF FOR HOME USE. DX: LABILE BLOOD PRESSURE No current facility-administered medications for this visit. ALLERGIES: ALLERGIES No Known Allergies PAST MEDICAL HISTORY Diagnosis Date Arthritis Arthropathy, unspecified, site unspecified Backache, unspecified CKD (chronic kidney disease) stage 3, GFR 30-59 ml/min ([facility]) 07/31/2018 Diverticulosis of colon (without mention of hemorrhage) Essential hypertension, benign Female stress incontinence mild Melanoma ([facility]) 09/03/2020 Right anterior proximal upper arm Nonspecific abnormal electrocardiogram (ECG) (EKG) PAC Other and unspecified hyperlipidemia Reactive depression 07/31/2018 Symptomatic menopausal or female climacteric states PAST SURGICAL HISTORY Procedure Laterality Date ABDOMINAL SURGERY HX APPENDECTOMY APPENDECTOMY HX CHOLECSTOT/CHOLECSTOST W/EXPL DRG/RMVL ST1 SPX COLONOSCOPY FLX DX W/COLLJ SPEC WHEN PFRMD 2001 Colonoscopy COLONOSCOPY FLX DX W/COLLJ SPEC WHEN PFRMD 01/05/2012 Colonoscopy COLONOSCOPY FLX DX W/COLLJ SPEC WHEN PFRMD 01/13/2021 DILATION AND CURETTAGE DXAND/THER NONOBSTETRIC Dilation AND curettage ESOPHAGOGASTRODUODENOSCOPY TRANSORAL DIAGNOSTIC 01/13/2021 EXC/DSTRJ LINGUAL TONSIL ANY METHOD SPX LIG/TRNSXJ FLP TUBE ABDL/VAG APPR UNI/BI Tubal ligation NEUROPLASTY AND/TRANSPOS MEDIAN NRV CARPAL TUNNE 06/08/2011 Carpal tunnel decomp, right PAST SURGICAL HISTORY OF 2007 removal growth between toes =left PAST SURGICAL HISTORY OF Multple myeloma's REVISE MEDIAN N/CARPAL TUNNEL SURG 06/28/2013 left CTR REVISE MEDIAN N/CARPAL TUNNEL SURG Left 01/29/2022 Left Carpal tunnel release with nerve wrap SALPINGO-OOPHORECTOMY COMPL/PRTL UNI/BI SPX 2002 Salpingo-oophorectomy SKIN BIOPSY HX TOTAL ABDOMINAL HYSTERECT W/WO RMVL TUBE OVARY 2003 Hysterectomy, ELLIOT VAGINAL HYSTERECTOMY FAMILY HISTORY Problem Relation Age of Onset Heart Mother Diabetes Mother Cancer Mother UTERUS Diabetes Father Heart Father Cancer Maternal Grandmother UTERUS Colon Cancer Daughter Social History Tobacco Use Smoking status: Never Smokeless tobacco: Never Vaping Use Vaping status: Never Used Substance Use Topics Alcohol use: No Drug use: No Reviewed current medications, allergies, past medical history, surgical history, family history and social history today. Reviewed recent labs. REVIEW OF SYSTEMS All other reviewed and negative other than HPI. HEALTH MAINTENANCE: Reviewed health maintenance issues today and recommended the following in detail. - has colonoscopy coming up. Discussed shingles, rsv and covid 19 Has wellness exam in December. VITALS: BP 124/64 Pulse (!) 53 Wt 88.5 kg (195 lb) SpO2 96% BMI 31.47 kg/m? Last 4 Encounter Wt Readings: Date: Wt: 10/03/2024 88.5 kg (195 lb) 09/06/2024 89 kg (196 lb 3.2 oz) 07/30/2024 88.5 kg (195 lb) 04/04/2024 85.2 kg (187 lb 13.3 oz) PHYSICAL EXAMINATION: General appearance: Well appearing, alert, in no acute distress, well-hydrated, well nourished. Skin: scar on left forearm. No redness or warmth. Lungs: Lungs clear to auscultation. No wheezing, rhonchi, rales Heart: RRR without murmur, gallop, or rubs. No ectopy Abdomen: Normal abdominal exam, Abdomen soft, non-tender. Bowel sounds normal. No masses, organomegaly Extremities: No deformities, edema, skin discoloration, clubbing or cyanosis. Good capillary refill. Musculoskeletal: No joint swelling, deformity, or tenderness ASSESSMENT/PLAN: 1. Essential hypertension, benign - ICD9: 401.1, ICD10: I10 (primary diagnosis) - Controlled - Continue current medications 2. Hyperlipidemia with targ (more content not included)... [facility] 10-03-2024 History of Present illness Narrative Patient presents with: 6 Month Exam HPI: Patient presents today for office visit for follow up. HYPERTENSION: doing well Denies chest pain, shortness of breath. No new dizziness. Gerd: doing well. Follows with her eye doc No myalgias. Tolerating statin. Monitoring her renal function. Avoid nsaids. Having pain with recent scar on left forearm from skin cancer excision. Now seeing Dr Dixon for same. Spinal stenosis causes some pain in the am but better as day progresses. MEDICATIONS: Current Outpatient Medications Medication Sig gabapentin (NEURONTIN) 100 mg capsule Take 100 mg by mouth three times a day. pravastatin (PRAVACHOL) 40 mg tablet Take 1 tablet by mouth once daily. omeprazole (PRILOSEC) 40 mg capsule Take 1 capsule by mouth once daily. latanoprost (XALATAN) 0.005 % ophthalmic solution Use 1 Drop in both eyes daily at bedtime. TO AFFECTED EYE(S) Calcium Carbonate-Vitamin D2 600 mg calcium- 200 unit tab Take 1 tablet by mouth once daily. lisinopril-hydroCHLOROthiazide (ZESTORETIC) 10-12.5 mg per tablet Take 1 tablet by mouth every morning. Blood Pressure Cuff - Home Use BLOOD PRESSURE CUFF FOR HOME USE. DX: LABILE BLOOD PRESSURE No current facility-administered medications for this visit. ALLERGIES: ALLERGIES No Known Allergies PAST MEDICAL HISTORY Diagnosis Date Arthritis Arthropathy, unspecified, site unspecified Backache, unspecified CKD (chronic kidney disease) stage 3, GFR 30-59 ml/min ([facility]) 07/31/2018 Diverticulosis of colon (without mention of hemorrhage) Essential hypertension, benign Female stress incontinence mild Melanoma ([facility]) 09/03/2020 Right anterior proximal upper arm Nonspecific abnormal electrocardiogram (ECG) (EKG) PAC Other and unspecified hyperlipidemia Reactive depression 07/31/2018 Symptomatic menopausal or female climacteric states PAST SURGICAL HISTORY Procedure Laterality Date ABDOMINAL SURGERY HX APPENDECTOMY APPENDECTOMY HX CHOLECSTOT/CHOLECSTOST W/EXPL DRG/RMVL ST1 SPX COLONOSCOPY FLX DX W/COLLJ SPEC WHEN PFRMD 2001 Colonoscopy COLONOSCOPY FLX DX W/COLLJ SPEC WHEN PFRMD 01/05/2012 Colonoscopy COLONOSCOPY FLX DX W/COLLJ SPEC WHEN PFRMD 01/13/2021 DILATION & CURETTAGE DX&/THER NONOBSTETRIC Dilation & curettage ESOPHAGOGASTRODUODENOSCOPY TRANSORAL DIAGNOSTIC 01/13/2021 EXC/DSTRJ LINGUAL TONSIL ANY METHOD SPX LIG/TRNSXJ FLP TUBE ABDL/VAG APPR UNI/BI Tubal ligation NEUROPLASTY &/TRANSPOS MEDIAN NRV CARPAL TUNNE 06/08/2011 Carpal tunnel decomp, right PAST SURGICAL HISTORY OF 2007 removal growth between toes =left PAST SURGICAL HISTORY OF Multple myeloma's REVISE MEDIAN N/CARPAL TUNNEL SURG 06/28/2013 left CTR REVISE MEDIAN N/CARPAL TUNNEL SURG Left 01/29/2022 Left Carpal tunnel release with nerve wrap SALPINGO-OOPHORECTOMY COMPL/PRTL UNI/BI SPX 2003 Salpingo-oophorectomy SKIN BIOPSY HX TOTAL ABDOMINAL HYSTERECT W/WO RMVL TUBE OVARY 2003 Hysterectomy, ELLIOT VAGINAL HYSTERECTOMY FAMILY HISTORY Problem Relation Age of Onset Heart Mother Diabetes Mother Cancer Mother UTERUS Diabetes Father Heart Father Cancer Maternal Grandmother UTERUS Colon Cancer Daughter Social History Tobacco Use Smoking status: Never Smokeless tobacco: Never Vaping Use Vaping status: Never Used Substance Use Topics Alcohol use: No Drug use: No Reviewed current medications, allergies, past medical history, surgical history, family history and social history today. Reviewed recent labs. REVIEW OF SYSTEMS All other reviewed and negative other than HPI. HEALTH MAINTENANCE: Reviewed health maintenance issues today and recommended the following in detail. - has colonoscopy coming up. Discussed shingles, rsv and covid 19 Has wellness exam in December. VITALS: BP 124/64 Pulse (!) 53 Wt 88.5 kg (195 lb) SpO2 96% BMI 31.47 kg/m Last 4 Encounter Wt Readings: Date: Wt: 10/03/2024 88.5 kg (195 lb) 09/06/2024 89 kg (196 lb 3.2 oz) 07/30/2024 88.5 kg (195 lb) 04/04/2024 85.2 kg (187 lb 13.3 oz) PHYSICAL EXAMINATION: General appearance: Well appearing, alert, in no acute distress, well-hydrated, well nourished. Skin: scar on left forearm. No redness or warmth. Lungs: Lungs clear to auscultation. No wheezing, rhonchi, rales Heart: RRR without murmur, gallop, or rubs. No ectopy Abdomen: Normal abdominal exam, Abdomen soft, non-tender. Bowel sounds normal. No masses, organomegaly Extremities: No deformities, edema, skin discoloration, clubbing or cyanosis. Good capillary refill. Musculoskeletal: No joint swelling, deformity, or tenderness ASSESSMENT/PLAN: 1. Essential hypertension, benign - ICD9: 401.1, ICD10: I10 (primary diagnosis) - Controlled - Continue current medications 2. Hyperlipidemia with target LDL less than 130 - ICD9: 272.4, ICD10: E78.5 - Controlled - Continue current medications - Counseled on healthy diet and regular exercise 3. Neuropathy - (NOS) - ICD9: 355.9, ICD10: G62.9 - Continue current medications. Notify us if any difficulties are noted. 4. Gastroesophageal reflux disease, unspecified whether esophagitis present - ICD9: 530.81, ICD10: K21.9 - stable. 5. Stage 3a chronic kidney disease (HCC) - ICD9: 585.3, ICD10: N18.31 - monitor labs. - BASIC METABOLIC PANEL 6. History of melanoma - ICD9: V10.82, ICD10: Z85.820 - per Dr Loco 7. Impaired fasting glucose - ICD9: 790.21, ICD10: R73.01 - HEMOGLOBIN A1C 8. Spinal stenosis of lumbar region with neurogenic claudication - ICD9: 724.03, ICD10: M48.062 - Red flags for re-assessment reviewed with patient in detail. documented in this encounter [facility] 10-03-2024 Instructions Braulio Whitney MD - 10/03/2024 10:04 AM EDT .ai documented in this encounter [facility] 09-21-2024 Note HNO ID: [id number] Author: ?, ?, ? Service: ? Author Type: ? Type: Progress Notes Filed: 09/21/2024 11:31 Note Text: POPULATION HEALTH NAVIGATION OUTREACH Action/FYI Patient outreach for HCC gaps; AWV. Spoke with Patient and schedule her AWV Reason for Outreach Care Gap/HCC or Scheduling Wellness Visits Care Gaps due: Medicare Annual Wellness Visit Patient Contacted: Spoke to patient/parent/or legal guardian Patient identified by name and : Yes Care Gap/HCC/Scheduling Wellness actions taken: Patient scheduled/pended orders: Medicare Annual Wellness Visit [facility] - 6 [facility] RAFY T - COLONOS[facility] 01/02[facility]20[facility] NINA MARLEY - medicare wellness HCC related Navigation Signature: Natasha Awad September 21, 2024 11:29 AM [facility] 09-21-2024 History of Present illness Narrative POPULATION HEALTH NAVIGATION OUTREACH Action/I Patient outreach for HCC gaps; AWV. Spoke with Patient and schedule her AWV Reason for Outreach Care Gap/HCC or Scheduling Wellness Visits Care Gaps due: Medicare Annual Wellness Visit Patient Contacted: Spoke to patient/parent/or legal guardian Patient identified by name and : Yes Care Gap/HCC/Scheduling Wellness actions taken: Patient scheduled/pended orders: Medicare Annual Wellness Visit 10[facility] BRAUL[facility] WHITNEY - 6 month [facility] J[facility] RAFY T - COLONOSCOPY 01/02/2025 in [facility] with NINA MARLEY - medicare wellness HCC related Navigation Signature: Natasha Awad September 21, 2024 11:29 AM documented in this encounter [facility] 09-21-2024 Note Patient Outreach (ADRIANA ROSARIOAV) ---- LIBIA NAJERA ([id number]) 1940 F NFR Date Time Provider Department 09/21/24 BRAULIO WHITNEY During your visit today, we recorded the following information about you: Natasha Hernandez 09/21/2024 11:31 AM Signed POPULATION HEALTH NAVIGATION OUTREACH Action/FYI Patient outreach for HCC gaps; AWV. Spoke with Patient and schedule her AWV Reason for Outreach Care Gap/HCC or Scheduling Wellness Visits Care Gaps due: Medicare Annual Wellness Visit Patient Contacted: Spoke to patient/parent/or legal guardian Patient identified by name and : Yes Care Gap/HCC/Scheduling Wellness actions taken: Patient scheduled/pended orders: Medicare Annual Wellness Visit 10/03/2024 in [facility] with BRAULIO WHITNEY - 6 month follow up 10/24/2024 in [facility] with RAFY RAZA - COLONOSCOPY 01/02/2025 in [facility] with NINA MARLEY - medicare wellness HCC related Navigation Signature: Natasha Awad September 21, 2024 11:29 AM Allergies As of Date: 09/21/2024 (No Known Allergies) Date Reviewed: 09/06/2024 Reviewed by: Laurie Wilson APRN.MEASUREMENT ADVISOR - Fully Assessed Reason for Visit: Population Health Navigation Outreach [3910] Cmt: Griffin Barrett Prescriptions as of 09/21/2024 - gabapentin (NEURONTIN) 100 mg capsule TAKE 1 CAPSULE BY MOUTH AT BEDTIME X 3 DAYS THEN 1 CAP TWICE DAILY X 3 DAYS THEN 1 CAP 3 TIMES DAILY - lisinopril-hydroCHLOROthiazide (ZESTORETIC) 10-12.5 mg per tablet Take 1 tablet by mouth every morning. - pravastatin (PRAVACHOL) 40 mg tablet Take 1 tablet by mouth once daily. - omeprazole (PRILOSEC) 40 mg capsule Take 1 capsule by mouth once daily. - latanoprost (XALATAN) 0.005 % ophthalmic solution Use 1 Drop in both eyes daily at bedtime. TO AFFECTED EYE(S) - Blood Pressure Cuff - Home Use BLOOD PRESSURE CUFF FOR HOME USE. DX: LABILE BLOOD PRESSURE - Calcium Carbonate-Vitamin D2 600 mg calcium- 200 unit tab Take 1 tablet by mouth once daily. Problem List As Of Date 09/21/2024 Noted Resolved Myalgia and myositis, unspecified [[id number]] 03/17/2001 04/22/2011 Essential hypertension, benign [I10] Backache, unspecified [M54.9] 07/31/2018 Nonspecific abnormal electrocardiogram (ECG) (E* 10/31/2020 Hyperlipidemia with target LDL less than 130 [E* OBESITY [E66.9] 04/13/2005 04/04/2024 ESOPHAGEAL REFLUX [K21.9] 12/03/2005 PAIN FOOT [M79.609] 11/25/2006 08/11/2009 Routine general medical examination at a [facility]*02/07/2007 04/22/2011 Symptomatic menopausal or female climacteric st*09/26/2007 04/22/2011 ATROPHIC VAGINITIS [N95.2] 09/26/2007 Urgency of Urination [R39.15] 09/26/2007 08/11/2009 FEMALE STRESS INCONTINENCE [N39.3] 09/26/2007 Mastalgia [N64.4] 03/15/2008 10/31/2020 Unspecified essential hypertension [I10] 07/01/2008 04/22/2011 Hip pain [M25.559] 08/11/2009 07/31/2018 Carpal tunnel syndrome [G56.00] 08/11/2009 GORDO-inhibitor cough [R05.8, T46.4X5A] 07/27/2010 04/22/2011 Grief reaction [F43.20] 01/19/2011 02/09/2018 Essential hypertension, benign [I10] 04/22/2011 01/05/2019 Impingement syndrome of left shoulder [M75.42] 08/11/2015 07/31/2018 Melanoma of left upper arm (HCC) [C43.62] 06/30/2016 Reactive depression [F32.9] 07/31/2018 01/05/2019 Stage 3a chronic kidney disease (HCC) [N18.31] 07/31/2018 Fibrocystic disease of left breast [N60.12] 02/02/2019 Impaired fasting glucose [R73.01] 05/31/2019 BPPV (benign paroxysmal positional vertigo), un*07/04/2019 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/27/2019 Non-cardiac chest pain [R07.89] 04/29/2020 10/31/2020 Glaucoma suspect of both eyes [H40.003] 10/31/2020 Neuropathy - (NOS) [G62.9] 05/18/2021 Iron deficiency [E61.1] 05/18/2021 03/17/2023 Skin cancer [C44.90] 10/19/2021 10/19/2021 Sciatica [M54.30] 04/21/2022 Strain of trapezius muscle [S46.819A] 04/21/2022 03/17/2023 Malignant hypertension [I10] 09/10/2022 03/17/2023 History of iron deficiency [Z86.39] 03/17/2023 Hyperglycemia [R73.9] 03/17/2023 Encounter Status:Closed by NATASHA HERNANDEZ on 09/21/24 [facility] 09-06-2024 History of Present illness Narrative HISTORY AND PHYSICAL Libia Najera : 1940 REFERRING PHYSICIAN: No referring provider defined for this encounter. CHIEF COMPLAINT: Patient presents with: Consult HPI: Libia is a 84 year old female referred for endoscopy. Libia notes due for colon cancer screening-hx of polyps (2020). Libia denies abdominal pain.. Libia denies diarrhea. Libia denies constipation. Libia notes a change in bowel habits in July which has returned almost back to normal. -bowel habits have become more frequent: 3-4 a day -soft & formed -not using fiber -denies watery diarrhea Libia denies melena. Libia denies bright red blood per rectum. Libia denies hemorrhoids. Libia notes family history of colon issues colon cancer in daughter & grandson Libia notes a distant history of heartburn. -takes Prilosec daily with symptom relief Libia denies dysphagia. Libia denies a history of ulcers/ peptic ulcer disease. Libia has undergone prior endoscopy. Last colonoscopy was 12/[address] Raza at [facility]. Sedation:Midazolam 4 mg IV, Fentanyl 75 micrograms IV, Ondansetron 4 mg IV EGD Impression: - Normal examined jejunum. - Normal examined duodenum. - Gastritis. Biopsied. - A single gastric polyp. Resected and retrieved. Clip (MR conditional) was placed. - Normal esophagus. COLONOSCOPY Impression: - Three 5 to 18 mm polyps in the rectum and in the descending colon, removed with a cold snare. Resected and retrieved. Clip (MR conditional) was placed. - The examination was otherwise normal. CONVERTED FINAL DIAGNOSIS 1. Antrum, biopsy (A) - Antral mucosa with chronic inactive gastritis. - Negative for Helicobacter pylori (immunostain). 2. Gastric polyp, biopsy (B) - Fundic gland polyp. 3. Sigmoid colon, polyp, biospy (C) - Tubular adenoma. 4. Rectum, polyps, biopsy (D) - Tubular adenoma. MIREYA/lk 01/14/2021 Current Outpatient Medications Medication Sig gabapentin (NEURONTIN) 100 mg capsule TAKE 1 CAPSULE BY MOUTH AT BEDTIME X 3 DAYS THEN 1 CAP TWICE DAILY X 3 DAYS THEN 1 CAP 3 TIMES DAILY lisinopril-hydroCHLOROthiazide (ZESTORETIC) 10-12.5 mg per tablet Take 1 tablet by mouth every morning. pravastatin (PRAVACHOL) 40 mg tablet Take 1 tablet by mouth once daily. omeprazole (PRILOSEC) 40 mg capsule Take 1 capsule by mouth once daily. latanoprost (XALATAN) 0.005 % ophthalmic solution Use 1 Drop in both eyes daily at bedtime. TO AFFECTED EYE(S) Calcium Carbonate-Vitamin D2 600 mg calcium- 200 unit tab Take 1 tablet by mouth once daily. peg 3350-Electrolytes (GOLYTELY) 236-22.74-6.74 -5.86 gram suspension Take 4,000 mL by mouth one time only for 1 dose. Refer to printed prep instructions from your provider. polyethylene glycol 3350 (MIRALAX ORAL) Take by mouth. (Patient not taking: Reported on 09/06/2024) Blood Pressure Cuff - Home Use BLOOD PRESSURE CUFF FOR HOME USE. DX: LABILE BLOOD PRESSURE No current facility-administered medications for this visit. ALLERGIES: Patient has no known allergies. PAST MEDICAL HISTORY Diagnosis Date Arthritis Arthropathy, unspecified, site unspecified Backache, unspecified CKD (chronic kidney disease) stage 3, GFR 30-59 ml/min ([facility]) 07/31/2018 Diverticulosis of colon (without mention of hemorrhage) Essential hypertension, benign Female stress incontinence mild Melanoma ([facility]) 09/03/2020 Right anterior proximal upper arm Nonspecific abnormal electrocardiogram (ECG) (EKG) PAC Other and unspecified hyperlipidemia Reactive depression 07/31/2018 Symptomatic menopausal or female climacteric states PAST SURGICAL HISTORY Procedure Laterality Date ABDOMINAL SURGERY HX APPENDECTOMY APPENDECTOMY HX CHOLECSTOT/CHOLECSTOST W/EXPL DRG/RMVL ST1 SPX COLONOSCOPY FLX DX W/COLLJ SPEC WHEN PFRMD 2001 Colonoscopy COLONOSCOPY FLX DX W/COLLJ SPEC WHEN PFRMD 01/05/2012 Colonoscopy COLONOSCOPY FLX DX W/COLLJ SPEC WHEN PFRMD 01/13/2021 DILATION & CURETTAGE DX&/THER NONOBSTETRIC Dilation & curettage ESOPHAGOGASTRODUODENOSCOPY TRANSORAL DIAGNOSTIC 01/13/2021 EXC/DSTRJ LINGUAL TONSIL ANY METHOD SPX LIG/TRNSXJ FLP TUBE ABDL/VAG APPR UNI/BI Tubal ligation NEUROPLASTY &/TRANSPOS MEDIAN NRV CARPAL TUNNE 06/08/2011 Carpal tunnel decomp, right PAST SURGICAL HISTORY OF 2007 removal growth between toes =left PAST SURGICAL HISTORY OF Multple myeloma's REVISE MEDIAN N/CARPAL TUNNEL SURG 06/28/2013 left CTR REVISE MEDIAN N/CARPAL TUNNEL SURG Left 01/29/2022 Left Carpal tunnel release with nerve wrap SALPINGO-OOPHORECTOMY COMPL/PRTL UNI/BI SPX 2003 Salpingo-oophorectomy SKIN BIOPSY HX TOTAL ABDOMINAL HYSTERECT W/WO RMVL TUBE OVARY 2003 Hysterectomy, ELLIOT VAGINAL HYSTERECTOMY FAMILY HISTORY Problem Relation Age of Onset Heart Mother Diabetes Mother Cancer Mother UTERUS Diabetes Father Heart Father Cancer Maternal Grandmother UTERUS Colon Cancer Daughter Social History Tobacco Use Smoking status: Never Smokeless tobacco: Never Vaping Use Vaping status: Never Used Substance Use Topics Alcohol use: No Drug use: No REVIEW OF SYMPTOMS: The review of systems data was entered by the nurse and reviewed by me SEE NURSING NOTE PHYSICAL EXAMINATION: General: The patient is 84 year old, female well nourished, well hydrated in no acute distress. The patient is oriented to time, place, and person. VITALS: Blood pressure 152/76, pulse 77, temperature 36.9 C (98.4 F), temperature source Temporal Artery, resp. rate 17, weight 89 kg (196 lb 3.2 oz), SpO2 97%. Body mass index is 31.67 kg/m . HEENT: Normal cephalic, ataumatic, pupils are equally round, sclera are anicteric, mucous membranes are moist, oropharynx is clear. Neck has no masses, asymmetry or lymphadenopathy. Respiratory: Clear to auscultation and percussion. Normal respiratory excursion and pattern. Cardiac: Examination is regular rate and rhythm. Normal S1/S2 Abdominal exam: Soft, nontender, with no palpable masses. No hepatosplenomegaly. No palpable hernias. Extremities: no clubbing, cyanosis or edema. No adenopathy. LABORATORY VALUES: As Noted RADIOLOGIC STUDIES: As Noted Assessment IMPRESSION: screen for colon cancer, family history of colon cancer, history of polyps PLAN: I have reviewed my findings with the surgeon. Will plan for lower endoscopy. We discussed the risks and benefits of the planned endoscopy. I have informed the patient that complications can occur including failure to complete the endoscopy and perforation. Libia had the opportunity to ask questions concerning the planned endoscopy. My staff has also explained the procedure to the patient in understandable terms and has given the patient printed material concerning the procedure. Libia freely consents to surgery. I plan to use Golytely bowel preparation I have explained to the patient the difference between IV conscious sedation and MAC anesthesia - and I have offered either, according to the patient's wishes. I have explained that with IV conscious sedation there is no anesthesia provider available and therefore there is a limitation of the amount of IV medications that can be given and that the patient may wake up in the middle of the procedure and/or experience pain/discomfort during the procedure. Further discussion was done and the patient was given the opportunity to ask questions and all questions were answered. Libia chooses IV conscious sedation. Libia was counseled that if there are changes in his/her medical condition, to let the office know if surgery should proceed. If there are changes in patient's medical condition from time of this encounter to the day of the procedure that preclude anesthesia, patient may have procedure cancelled for patient's safety. Diagnoses: (Z12.11) Screen for colon cancer (primary encounter diagnosis) (Z80.0) Family history of colon cancer (Z86.0100) History of colonic polyps Consultation requested by Nina Marley CNP for an opinion regarding frequent bowel movements & hx of tubular adenomas. My final recommendations will be communicated back to the requesting physician by way of shared Medical record or letter to requesting physician via [place] mail. Portions of this documentation were copied and pasted from previous office visit notes in order to provide a cohesive continuity of the history. The note has been reviewed and edited and updated as necessary. Laurie Wilson APRN.[place] documented in this encounter [facility] 09-06-2024 Note HNO ID: [id number] Author: LAURIE WILSON APRN.CNP Service: ? Author Type: Nurse Practitioner Type: Progress Notes Filed: 09/06/2024 14:16 Note Text: HISTORY AND PHYSICAL Libia Najera : 1940 REFERRING PHYSICIAN: No referring provider defined for this encounter. CHIEF COMPLAINT: Patient presents with: Consult HPI: Libia is a 84 year old female referred for endoscopy. Libia notes due for colon cancer screening-hx of polyps (2020). Libia denies abdominal pain.. Libia denies diarrhea. Libia denies constipation. Libia notes a change in bowel habits in July which has returned almost back to normal. -bowel habits have become more frequent: 3-4 a day -soft AND formed -not using fiber -denies watery diarrhea Libia denies melena. Libia denies bright red blood per rectum. Libia denies hemorrhoids. Libia notes family history of colon issues colon cancer in daughter AND grandson Libia notes a distant history of heartburn. -takes Prilosec daily with symptom relief Libia denies dysphagia. Libia denies a history of ulcers/ peptic ulcer disease. Libia has undergone prior endoscopy. Last colonoscopy was 12/[address] Raza at [facility]. Sedation:Midazolam 4 mg IV, Fentanyl 75 micrograms IV, Ondansetron 4 mg IV EGD Impression: - Normal examined jejunum. - Normal examined duodenum. - Gastritis. Biopsied. - A single gastric polyp. Resected and retrieved. Clip (MR conditional) was placed. - Normal esophagus. COLONOSCOPY Impression: - Three 5 to 18 mm polyps in the rectum and in the descending colon, removed with a cold snare. Resected and retrieved. Clip (MR conditional) was placed. - The examination was otherwise normal. CONVERTED FINAL DIAGNOSIS 1. Antrum, biopsy (A) - Antral mucosa with chronic inactive gastritis. - Negative for Helicobacter pylori (immunostain). 2. Gastric polyp, biopsy (B) - Fundic gland polyp. 3. Sigmoid colon, polyp, biospy (C) - Tubular adenoma. 4. Rectum, polyps, biopsy (D) - Tubular adenoma. MIREYA/toshia 01/14/2021 Current Outpatient Medications Medication Sig gabapentin (NEURONTIN) 100 mg capsule TAKE 1 CAPSULE BY MOUTH AT BEDTIME X 3 DAYS THEN 1 CAP TWICE DAILY X 3 DAYS THEN 1 CAP 3 TIMES DAILY lisinopril-hydroCHLOROthiazide (ZESTORETIC) 10-12.5 mg per tablet Take 1 tablet by mouth every morning. pravastatin (PRAVACHOL) 40 mg tablet Take 1 tablet by mouth once daily. omeprazole (PRILOSEC) 40 mg capsule Take 1 capsule by mouth once daily. latanoprost (XALATAN) 0.005 % ophthalmic solution Use 1 Drop in both eyes daily at bedtime. TO AFFECTED EYE(S) Calcium Carbonate-Vitamin D2 600 mg calcium- 200 unit tab Take 1 tablet by mouth once daily. peg 3350-Electrolytes (GOLYTELY) 236-22.74-6.74 -5.86 gram suspension Take 4,000 mL by mouth one time only for 1 dose. Refer to printed prep instructions from your provider. polyethylene glycol 3350 (MIRALAX ORAL) Take by mouth. (Patient not taking: Reported on 09/06/2024) Blood Pressure Cuff - Home Use BLOOD PRESSURE CUFF FOR HOME USE. DX: LABILE BLOOD PRESSURE No current facility-administered medications for this visit. ALLERGIES: Patient has no known allergies. PAST MEDICAL HISTORY Diagnosis Date Arthritis Arthropathy, unspecified, site unspecified Backache, unspecified CKD (chronic kidney disease) stage 3, GFR 30-59 ml/min ([facility]) 07/31/2018 Diverticulosis of colon (without mention of hemorrhage) Essential hypertension, benign Female stress incontinence mild Melanoma ([facility]) 09/03/2020 Right anterior proximal upper arm Nonspecific abnormal electrocardiogram (ECG) (EKG) PAC Other and unspecified hyperlipidemia Reactive depression 07/31/2018 Symptomatic menopausal or female climacteric states PAST SURGICAL HISTORY Procedure Laterality Date ABDOMINAL SURGERY HX APPENDECTOMY APPENDECTOMY HX CHOLECSTOT/CHOLECSTOST W/EXPL DRG/RMVL ST1 SPX COLONOSCOPY FLX DX W/COLLJ SPEC WHEN PFRMD 2001 Colonoscopy COLONOSCOPY FLX DX W/COLLJ SPEC WHEN PFRMD 01/05/2012 Colonoscopy COLONOSCOPY FLX DX W/COLLJ SPEC WHEN PFRMD 01/13/2021 DILATION AND CURETTAGE DXAND/THER NONOBSTETRIC Dilation AND curettage ESOPHAGOGASTRODUODENOSCOPY TRANSORAL DIAGNOSTIC 01/13/2021 EXC/DSTRJ LINGUAL TONSIL ANY METHOD SPX LIG/TRNSXJ FLP TUBE ABDL/VAG APPR UNI/BI Tubal ligation NEUROPLASTY AND/TRANSPOS MEDIAN NRV CARPAL TUNNE 06/08/2011 Carpal tunnel decomp, right PAST SURGICAL HISTORY OF 2007 removal growth between toes =left PAST SURGICAL HISTORY OF Multple myeloma's REVISE MEDIAN N/CARPAL TUNNEL SURG 06/28/2013 left CTR REVISE MEDIAN N/CARPAL TUNNEL SURG Left 01/29/2022 Left Carpal tunnel release with nerve wrap SALPINGO-OOPHORECTOMY COMPL/PRTL UNI/BI SPX 2003 Salpingo-oophorectomy SKIN BIOPSY HX TOTAL ABDOMINAL HYSTERECT W/WO RMVL TUBE OVARY 2003 Hysterectomy, ELLIOT VAGINAL HYSTERECTOMY FAMILY HISTORY Problem Relation Age of Onset He (more content not included)... [facility] 07-30-2024 Instructions Nina Marley APRN.CNP - 07/30/2024 9:36 AM EST Schedule appointment with general surgery for colonoscopy Continue to monitor BP at home Continue medication regimen Follow up if symptoms worsen documented in this encounter [facility] 07-30-2024 Note HNO ID: [id number] Author: NINA MARLEY APRN.CNP Service: ? Author Type: Nurse Practitioner Type: Progress Notes Filed: 07/30/2024 20:27 Note Text: This is a 84 year old female who presents today with: Patient presents with: Acute Visit: Elevated blood pressure readings per home bp; increase in bowel movements for the last 3 days- no stomach pain, no blood in stool HISTORY OF PRESENT ILLNESS: Libia Najera is a 84 year old female. Patient presents with: Acute Visit: Elevated blood pressure readings per home bp; increase in bowel movements for the last 3 days- no stomach pain, no blood in stool Increased bowel movements: Started 3-4 days ago Usually suffers from constipation When she eats she has to use the bathroom Having BM 3-4 times per day No blood in stools Stools are soft and formed Denies runny or watery diarrhea Familial hx of colon cancer in daughter and granddaughter Denies abd pain, nausea and vomiting Colonoscopy in 2020 with abnormal findings Does not feel like she's emptying completely Brown in color with black spots Denies incontinence Has not started eating new foods HTN: Patient is compliant with meds Yes Monitors bp at home: Yes. Denies side effects: Yes. Chest pain: No. Dyspnea: No. Edema: No. Palpitations: No. Syncope: No. Headache: No. Dizziness: No. Taking BP first thing in the morning before HTN meds about 1 hour prior Has shooting pain in the left wrist Has been following with pain management Using lidocaine topically PRN for pain and gabapentin 3 times per day Has an appointment with pain management tomorrow Notices BP level is high due to pain PAST MEDICAL HISTORY: PAST MEDICAL HISTORY Diagnosis Date Arthritis Arthropathy, unspecified, site unspecified Backache, unspecified CKD (chronic kidney disease) stage 3, GFR 30-59 ml/min ([facility]) 07/31/2018 Diverticulosis of colon (without mention of hemorrhage) Essential hypertension, benign Female stress incontinence mild Melanoma ([facility]) 09/03/2020 Right anterior proximal upper arm Nonspecific abnormal electrocardiogram (ECG) (EKG) PAC Other and unspecified hyperlipidemia Reactive depression 07/31/2018 Symptomatic menopausal or female climacteric states PAST SURGICAL HISTORY Procedure Laterality Date ABDOMINAL SURGERY HX APPENDECTOMY APPENDECTOMY HX CHOLECSTOT/CHOLECSTOST W/EXPL DRG/RMVL ST1 SPX COLONOSCOPY FLX DX W/COLLJ SPEC WHEN PFRMD 2001 Colonoscopy COLONOSCOPY FLX DX W/COLLJ SPEC WHEN PFRMD 01/05/2012 Colonoscopy COLONOSCOPY FLX DX W/COLLJ SPEC WHEN PFRMD 01/13/2021 DILATION AND CURETTAGE DXAND/THER NONOBSTETRIC Dilation AND curettage ESOPHAGOGASTRODUODENOSCOPY TRANSORAL DIAGNOSTIC 01/13/2021 EXC/DSTRJ LINGUAL TONSIL ANY METHOD SPX LIG/TRNSXJ FLP TUBE ABDL/VAG APPR UNI/BI Tubal ligation NEUROPLASTY AND/TRANSPOS MEDIAN NRV CARPAL TUNNE 06/08/2011 Carpal tunnel decomp, right PAST SURGICAL HISTORY OF 2007 removal growth between toes =left PAST SURGICAL HISTORY OF Multple myeloma's REVISE MEDIAN N/CARPAL TUNNEL SURG 06/28/2013 left CTR REVISE MEDIAN N/CARPAL TUNNEL SURG Left 01/29/2022 Left Carpal tunnel release with nerve wrap SALPINGO-OOPHORECTOMY COMPL/PRTL UNI/BI SPX 2002 Salpingo-oophorectomy SKIN BIOPSY HX TOTAL ABDOMINAL HYSTERECT W/WO RMVL TUBE OVARY 2002 Hysterectomy, ELLIOT VAGINAL HYSTERECTOMY ALLERGIES Patient has no known allergies. MEDICATIONS Current Outpatient Medications Medication Sig gabapentin (NEURONTIN) 100 mg capsule TAKE 1 CAPSULE BY MOUTH AT BEDTIME X 3 DAYS THEN 1 CAP TWICE DAILY X 3 DAYS THEN 1 CAP 3 TIMES DAILY lisinopril-hydroCHLOROthiazide (ZESTORETIC) 10-12.5 mg per tablet Take 1 tablet by mouth every morning. pravastatin (PRAVACHOL) 40 mg tablet Take 1 tablet by mouth once daily. omeprazole (PRILOSEC) 40 mg capsule Take 1 capsule by mouth once daily. latanoprost (XALATAN) 0.005 % ophthalmic solution Use 1 Drop in both eyes daily at bedtime. TO AFFECTED EYE(S) polyethylene glycol 3350 (MIRALAX ORAL) Take by mouth. Blood Pressure Cuff - Home Use BLOOD PRESSURE CUFF FOR HOME USE. DX: LABILE BLOOD PRESSURE Calcium Carbonate-Vitamin D2 600 mg calcium- 200 unit tab Take 1 tablet by mouth once daily. No current facility-administered medications for this visit. FAMILY HISTORY Problem Relation Age of Onset Heart Mother Diabetes Mother Cancer Mother UTERUS Diabetes Father Heart Father Cancer Maternal Grandmother UTERUS Colon Cancer Daughter Social History Tobacco Use Smoking status: Never Smokeless tobacco: Never Vaping Use Vaping status: Never Used Substance Use Topics Alcohol use: No Drug use: No EXAM: BP 138/80 Pulse 82 Resp 16 Wt 88.5 kg (195 lb) SpO2 96% BMI 31.47 kg/m? PHYSICAL EXAM: General Appearance: Well appearing, alert, in no acute distress, well-hydrated, well nourished.. Skin: Skin color, texture, turgor normal, no jaron (more content not included)... [facility] 07-30-2024 History of Present illness Narrative This is a 84 year old female who presents today with: Patient presents with: Acute Visit: Elevated blood pressure readings per home bp; increase in bowel movements for the last 3 days- no stomach pain, no blood in stool HISTORY OF PRESENT ILLNESS: Libia Najera is a 84 year old female. Patient presents with: Acute Visit: Elevated blood pressure readings per home bp; increase in bowel movements for the last 3 days- no stomach pain, no blood in stool Increased bowel movements: Started 3-4 days ago Usually suffers from constipation When she eats she has to use the bathroom Having BM 3-4 times per day No blood in stools Stools are soft and formed Denies runny or watery diarrhea Familial hx of colon cancer in daughter and granddaughter Denies abd pain, nausea and vomiting Colonoscopy in 2020 with abnormal findings Does not feel like she's emptying completely Brown in color with black spots Denies incontinence Has not started eating new foods HTN: Patient is compliant with meds Yes Monitors bp at home: Yes. Denies side effects: Yes. Chest pain: No. Dyspnea: No. Edema: No. Palpitations: No. Syncope: No. Headache: No. Dizziness: No. Taking BP first thing in the morning before HTN meds about 1 hour prior Has shooting pain in the left wrist Has been following with pain management Using lidocaine topically PRN for pain and gabapentin 3 times per day Has an appointment with pain management tomorrow Notices BP level is high due to pain PAST MEDICAL HISTORY: PAST MEDICAL HISTORY Diagnosis Date Arthritis Arthropathy, unspecified, site unspecified Backache, unspecified CKD (chronic kidney disease) stage 3, GFR 30-59 ml/min ([facility]) 07/31/2018 Diverticulosis of colon (without mention of hemorrhage) Essential hypertension, benign Female stress incontinence mild Melanoma ([facility]) 09/03/2020 Right anterior proximal upper arm Nonspecific abnormal electrocardiogram (ECG) (EKG) PAC Other and unspecified hyperlipidemia Reactive depression 07/31/2018 Symptomatic menopausal or female climacteric states PAST SURGICAL HISTORY Procedure Laterality Date ABDOMINAL SURGERY HX APPENDECTOMY APPENDECTOMY HX CHOLECSTOT/CHOLECSTOST W/EXPL DRG/RMVL ST1 SPX COLONOSCOPY FLX DX W/COLLJ SPEC WHEN PFRMD 2001 Colonoscopy COLONOSCOPY FLX DX W/COLLJ SPEC WHEN PFRMD 01/05/2012 Colonoscopy COLONOSCOPY FLX DX W/COLLJ SPEC WHEN PFRMD 01/13/2021 DILATION & CURETTAGE DX&/THER NONOBSTETRIC Dilation & curettage ESOPHAGOGASTRODUODENOSCOPY TRANSORAL DIAGNOSTIC 01/13/2021 EXC/DSTRJ LINGUAL TONSIL ANY METHOD SPX LIG/TRNSXJ FLP TUBE ABDL/VAG APPR UNI/BI Tubal ligation NEUROPLASTY &/TRANSPOS MEDIAN NRV CARPAL TUNNE 06/08/2011 Carpal tunnel decomp, right PAST SURGICAL HISTORY OF 2007 removal growth between toes =left PAST SURGICAL HISTORY OF Multple myeloma's REVISE MEDIAN N/CARPAL TUNNEL SURG 06/28/2013 left CTR REVISE MEDIAN N/CARPAL TUNNEL SURG Left 01/29/2022 Left Carpal tunnel release with nerve wrap SALPINGO-OOPHORECTOMY COMPL/PRTL UNI/BI SPX 2003 Salpingo-oophorectomy SKIN BIOPSY HX TOTAL ABDOMINAL HYSTERECT W/WO RMVL TUBE OVARY 2002 Hysterectomy, ELLIOT VAGINAL HYSTERECTOMY ALLERGIES Patient has no known allergies. MEDICATIONS Current Outpatient Medications Medication Sig gabapentin (NEURONTIN) 100 mg capsule TAKE 1 CAPSULE BY MOUTH AT BEDTIME X 3 DAYS THEN 1 CAP TWICE DAILY X 3 DAYS THEN 1 CAP 3 TIMES DAILY lisinopril-hydroCHLOROthiazide (ZESTORETIC) 10-12.5 mg per tablet Take 1 tablet by mouth every morning. pravastatin (PRAVACHOL) 40 mg tablet Take 1 tablet by mouth once daily. omeprazole (PRILOSEC) 40 mg capsule Take 1 capsule by mouth once daily. latanoprost (XALATAN) 0.005 % ophthalmic solution Use 1 Drop in both eyes daily at bedtime. TO AFFECTED EYE(S) polyethylene glycol 3350 (MIRALAX ORAL) Take by mouth. Blood Pressure Cuff - Home Use BLOOD PRESSURE CUFF FOR HOME USE. DX: LABILE BLOOD PRESSURE Calcium Carbonate-Vitamin D2 600 mg calcium- 200 unit tab Take 1 tablet by mouth once daily. No current facility-administered medications for this visit. FAMILY HISTORY Problem Relation Age of Onset Heart Mother Diabetes Mother Cancer Mother UTERUS Diabetes Father Heart Father Cancer Maternal Grandmother UTERUS Colon Cancer Daughter Social History Tobacco Use Smoking status: Never Smokeless tobacco: Never Vaping Use Vaping status: Never Used Substance Use Topics Alcohol use: No Drug use: No EXAM: BP 138/80 Pulse 82 Resp 16 Wt 88.5 kg (195 lb) SpO2 96% BMI 31.47 kg/m PHYSICAL EXAM: General Appearance: Well appearing, alert, in no acute distress, well-hydrated, well nourished.. Skin: Skin color, texture, turgor normal, no suspicious rashes or lesions. Lungs: Lungs clear to auscultation. No wheezing, rhonchi, rales.. Heart: RRR without murmur, gallop, or rubs. No ectopy. Abdomen: Abdomen soft, non-tender. Bowel sounds normal. No masses, organomegaly Neuro: gait normal. Alert and oriented. ASSESSMENT/PLAN: 1. Essential hypertension, benign - ICD9: 401.1, ICD10: I10 (primary diagnosis) - Controlled - Continue current medications - Recommend home blood pressure monitoring, to bring results to next visit - Encouraged sodium restriction, DASH or Mediterranean diet - Recommend regular aerobic exercise 2. Frequent bowel movements - ICD9: 787.99, ICD10: R19.4 Discussed adding fiber. - CONSULT TO GENERAL SURGERY 3. Tubular adenoma - ICD9: 229.9, ICD10: D36.9 Due for surveillance. - CONSULT TO GENERAL SURGERY 4. Left wrist pain - ICD9: 719.43, ICD10: M25.532 Continue per pain management. Discussed treatment plan and patient voices understanding. Patient's questions answered appropriately. Medications and potential side effects were discussed and patient voices understanding. Return to the office as scheduled or as needed for worsening/no improvement. Nina Marley APRN.MEASUREMENT ADVISOR documented in this encounter [facility] 05-04-2024 Note HNO ID: [id number] Author: SOSA BERNSTEIN, HEDY Service: ? Author Type: Registered Nurse Type: Progress Notes Filed: 05/04/2024 13:40 Note Text: CDM Telephonic Outreach Provider Action/FYI Outreach Summary: Middle of Feb saw a outside sales advertising executive to have a melanoma removed. 4 inch incison Having lots of pain since removal. Pt had appt with Derm last week d/t shooting pains to arm at night Taking lyrica and it relieves pain to a tolerable level and uses voltaren and it helps wt 187 lbs Contacted for: Routine Telephonic Outreach Contact made with patient: Yes Patient identified by name and date of . Discussed care with patient Are you experiencing any new or worsening symptoms you need to talk about today? No Disease Specific Do you check your blood pressure at home? Yes, Enter readings: 116/73. Do you have new or worsening shortness of breath with activity? No Do you feel like you are dehydrated for any reason, including not being able to eat or drink normally, or having less urine/much darker urine than normal for you? No Do you check your daily weight at home? Yes, Have you noticed a sudden gain in weight greater than three pounds in a day or three pounds in a week? No Based on geopolitics teacher, the following disposition is advised: No symptoms or symptoms present, not severe. Routed to: No Action Needed ZHANNA Education Provided this Outreach: No Sosa Bernstein RN May 04, 2024 1:37 PM [facility] 05-04-2024 History of Present illness Narrative CDM Telephonic Outreach Provider Action/FYI Outreach Summary: Middle of Feb saw a outside sales advertising executive to have a melanoma removed. 4 inch incison Having lots of pain since removal. Pt had appt with Derm last week d/t shooting pains to arm at night Taking lyrica and it relieves pain to a tolerable level and uses voltaren and it helps wt 187 lbs Contacted for: Routine Telephonic Outreach Contact made with patient: Yes Patient identified by name and date of . Discussed care with patient Are you experiencing any new or worsening symptoms you need to talk about today? No Disease Specific Do you check your blood pressure at home? Yes, Enter readings: 116/73. Do you have new or worsening shortness of breath with activity? No Do you feel like you are dehydrated for any reason, including not being able to eat or drink normally, or having less urine/much darker urine than normal for you? No Do you check your daily weight at home? Yes, Have you noticed a sudden gain in weight greater than three pounds in a day or three pounds in a week? No Based on geopolitics teacher, the following disposition is advised: No symptoms or symptoms present, not severe. Routed to: No Action Needed ZHANNA Education Provided this Outreach: Grace Bernstein RN May 04, 2024 1:37 PM documented in this encounter [facility] 05-04-2024 Note Patient Outreach ([facility] [place] ---- LIBIA NAJERA ([id number]) 1940 F NFR Date Time Provider Department 05/04/24 SOSA BERNSTEIN [facility] [place] During your visit today, we recorded the following information about you: Sosa Bernstein RN 05/04/2024 1:40 PM Signed CDM Telephonic Outreach Provider Action/FYI Outreach Summary: Middle of Feb saw a outside sales advertising executive to have a melanoma removed. 4 inch incison Having lots of pain since removal. Pt had appt with Derm last week d/t shooting pains to arm at night Taking lyrica and it relieves pain to a tolerable level and uses voltaren and it helps wt 187 lbs Contacted for: Routine Telephonic Outreach Contact made with patient: Yes Patient identified by name and date of . Discussed care with patient Are you experiencing any new or worsening symptoms you need to talk about today? No Disease Specific Do you check your blood pressure at home? Yes, Enter readings: 116/73. Do you have new or worsening shortness of breath with activity? No Do you feel like you are dehydrated for any reason, including not being able to eat or drink normally, or having less urine/much darker urine than normal for you? No Do you check your daily weight at home? Yes, Have you noticed a sudden gain in weight greater than three pounds in a day or three pounds in a week? No Based on geopolitics teacher, the following disposition is advised: No symptoms or symptoms present, not severe. Routed to: No Action Needed ZHANNA Education Provided this Outreach: No Sosa Bernstein RN May 04, 2024 1:37 PM Allergies As of Date: 05/04/2024 (No Known Allergies) Date Reviewed: 01/28/2024 Reviewed by: Taya Paige MA - Fully Assessed Reason for Visit: community monitoring [Other] Cmt: CDM telephonic Prescriptions as of 05/27/2024 - lisinopril-hydroCHLOROthiazide (ZESTORETIC) 10-12.5 mg per tablet Take 1 tablet by mouth every morning. - pravastatin (PRAVACHOL) 40 mg tablet Take 1 tablet by mouth once daily. - omeprazole (PRILOSEC) 40 mg capsule Take 1 capsule by mouth once daily. - latanoprost (XALATAN) 0.005 % ophthalmic solution Use 1 Drop in both eyes daily at bedtime. TO AFFECTED EYE(S) - polyethylene glycol 3350 (MIRALAX ORAL) Take by mouth. - Blood Pressure Cuff - Home Use BLOOD PRESSURE CUFF FOR HOME USE. DX: LABILE BLOOD PRESSURE - Calcium Carbonate-Vitamin D2 600 mg calcium- 200 unit tab Take 1 tablet by mouth once daily. Problem List As Of Date 05/04/2024 Noted Resolved Myalgia and myositis, unspecified [[id number]] 03/17/2001 04/22/2011 Essential hypertension, benign [I10] Backache, unspecified [M54.9] 07/31/2018 Nonspecific abnormal electrocardiogram (ECG) (E* 10/31/2020 Hyperlipidemia with target LDL less than 130 [E* OBESITY [E66.9] 04/13/2005 04/04/2024 ESOPHAGEAL REFLUX [K21.9] 12/03/2005 PAIN FOOT [M79.609] 11/25/2006 08/11/2009 Routine general medical examination at a health*02/07/2007 04/22/2011 Symptomatic menopausal or female climacteric st*09/26/2007 04/22/2011 ATROPHIC VAGINITIS [N95.2] 09/26/2007 Urgency of Urination [R39.15] 09/26/2007 08/11/2009 FEMALE STRESS INCONTINENCE [N39.3] 09/26/2007 Mastalgia [N64.4] 03/15/2008 10/31/2020 Unspecified essential hypertension [I10] 07/01/2008 04/22/2011 Hip pain [M25.559] 08/11/2009 07/31/2018 Carpal tunnel syndrome [G56.00] 08/11/2009 GORDO-inhibitor cough [R05.8, T46.4X5A] 07/27/2010 04/22/2011 Grief reaction [F43.21] 01/19/2011 02/09/2018 Essential hypertension, benign [I10] 04/22/2011 01/05/2019 Impingement syndrome of left shoulder [M75.42] 08/11/2015 07/31/2018 Melanoma of left upper arm (HCC) [C43.62] 06/30/2016 Reactive depression [F32.9] 07/31/2018 01/05/2019 Stage 3a chronic kidney disease (HCC) [N18.31] 07/31/2018 Fibrocystic disease of left breast [N60.12] 02/02/2019 Impaired fasting glucose [R73.01] 05/31/2019 BPPV (benign paroxysmal positional vertigo), un*07/04/2019 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/27/2019 Non-cardiac chest pain [R07.89] 04/29/2020 10/31/2020 Glaucoma suspect of both eyes [H40.003] 10/31/2020 Neuropathy - (NOS) [G62.9] 05/18/2021 Iron deficiency [E61.1] 05/18/2021 03/17/2023 Skin cancer [C44.90] 10/19/2021 10/19/2021 Sciatica [M54.30] 04/21/2022 Strain of trapezius muscle [S46.819A] 04/21/2022 03/17/2023 Malignant hypertension [I10] 09/10/2022 03/17/2023 History of iron deficiency [Z86.39] 03/17/2023 Hyperglycemia [R73.9] 03/17/2023 Encounter Status:Closed by SOSA BERNSTEIN on 05/04/24 [facility] 04-06-2024 History of Present illness Narrative [facility] Telephonic Outreach Provider Action/FYI Contacted for: Routine Telephonic Outreach Contact made with patient: Yes Patient identified by name and date of . Discussed care with patient Are you experiencing any new or worsening symptoms you need to talk about today? No Disease Specific Do you check your blood pressure at home? Yes, Enter readings: not reported Do you have new or worsening shortness of breath with activity? No Do you feel like you are dehydrated for any reason, including not being able to eat or drink normally, or having less urine/much darker urine than normal for you? No Do you check your daily weight at home? Yes, Have you noticed a sudden gain in weight greater than three pounds in a day or three pounds in a week? No Based on geopolitics teacher, the following disposition is advised: No symptoms or symptoms present, not severe. Routed to: No Action Needed ZHANNA Education Provided this Outreach: No Sosa Bernstein RN April 06, 2024 9:50 AM Outreach Summary: PCP 04/04/24 No CDM concerns. Going to an appt this am documented in this encounter [facility] 04-06-2024 Telephone encounter Note Phoned patient went over results from Dr Whitney with understanding. [facility] 04-06-2024 Miscellaneous Notes Phoned patient went over results from Dr Whitney with understanding. Please let her know her blood work was all stable. documented in this encounter [facility] 04-06-2024 Telephone encounter Note Please let her know her blood work was all stable. [facility] 04-04-2024 Instructions Braulio Whitney MD - 04/04/2024 9:53 AM EDT Get debrox at pharmacy for ears. documented in this encounter [facility] 04-04-2024 History of Present illness Narrative Patient presents with: 6 Month Exam HPI: Patient presents today for office visit for follow up. Now has a Life Alert! HOSPITAL/ER FOLLOW UP: Reason for visit: back pain she thought kidney but was told muscle spasms Which facility: [facility] ER 03/28 was seeb, alfredo xray of ls spine. Current symptoms: still with pain on and off She had been raking leaves-filled the Gator x 2 and picked up 1 1/2 bushel of hickory nuts. No numbness or weakness. Overall is Improving. About [address] Loco removed a skin cancer from left arm. Now has some pain going into hand. Happens rarely. No redness or warmth. Not really bad. Dry ears and itching. Using a Qtip with some Vasoline and that has helped them quit itching. Is this ok? Discussed avoiding. Hard stools not new. Has finally found a stool softener that is working well and eating her peaches to help. HTN: Patient is compliant with meds Yes Monitors bp at home: Yes. Denies side effects: Yes. Chest pain: No. Dyspnea: No. Edema: No. Palpitations: No. Syncope: No. Headache: No. Dizziness: some lightheadedness. When not drinking enough water. GERD: Patient takes: omeprazole Heartburn is controlled: depends on diet sometimes needs some Tums. Bloody or black stools: No. Bowel changes: struggles with hard stools. HYPERLIPIDEMIA: Patient is taking medications: Yes. Patient is watching diet: Yes. Patient denies myalgias: Yes. Patient denies gi upset: Yes No longer on gabapentin. MEDICATIONS: Current Outpatient Medications Medication Sig lisinopril-hydroCHLOROthiazide (ZESTORETIC) 10-12.5 mg per tablet Take 1 tablet by mouth every morning. pravastatin (PRAVACHOL) 40 mg tablet Take 1 tablet by mouth once daily. omeprazole (PRILOSEC) 40 mg capsule Take 1 capsule by mouth once daily. latanoprost (XALATAN) 0.005 % ophthalmic solution Use 1 Drop in both eyes daily at bedtime. TO AFFECTED EYE(S) Calcium Carbonate-Vitamin D2 600 mg calcium- 200 unit tab Take 1 tablet by mouth once daily. polyethylene glycol 3350 (MIRALAX ORAL) Take by mouth. Blood Pressure Cuff - Home Use BLOOD PRESSURE CUFF FOR HOME USE. DX: LABILE BLOOD PRESSURE No current facility-administered medications for this visit. ALLERGIES: ALLERGIES No Known Allergies PAST MEDICAL HISTORY Diagnosis Date Arthritis Arthropathy, unspecified, site unspecified Backache, unspecified CKD (chronic kidney disease) stage 3, GFR 30-59 ml/min ([facility]) 07/31/2018 Diverticulosis of colon (without mention of hemorrhage) Essential hypertension, benign Female stress incontinence mild Melanoma ([facility]) 09/03/2020 Right anterior proximal upper arm Nonspecific abnormal electrocardiogram (ECG) (EKG) PAC Other and unspecified hyperlipidemia Reactive depression 07/31/2018 Symptomatic menopausal or female climacteric states PAST SURGICAL HISTORY Procedure Laterality Date ABDOMINAL SURGERY HX APPENDECTOMY APPENDECTOMY HX CHOLECSTOT/CHOLECSTOST W/EXPL DRG/RMVL ST1 SPX COLONOSCOPY FLX DX W/COLLJ SPEC WHEN PFRMD 2001 Colonoscopy COLONOSCOPY FLX DX W/COLLJ SPEC WHEN PFRMD 01/05/2012 Colonoscopy COLONOSCOPY FLX DX W/COLLJ SPEC WHEN PFRMD 01/13/2021 DILATION & CURETTAGE DX&/THER NONOBSTETRIC Dilation & curettage ESOPHAGOGASTRODUODENOSCOPY TRANSORAL DIAGNOSTIC 01/13/2021 EXC/DSTRJ LINGUAL TONSIL ANY METHOD SPX LIG/TRNSXJ FLP TUBE ABDL/VAG APPR UNI/BI Tubal ligation NEUROPLASTY &/TRANSPOS MEDIAN NRV CARPAL TUNNE 06/08/2011 Carpal tunnel decomp, right PAST SURGICAL HISTORY OF 2007 removal growth between toes =left PAST SURGICAL HISTORY OF Multple myeloma's REVISE MEDIAN N/CARPAL TUNNEL SURG 06/28/2013 left CTR REVISE MEDIAN N/CARPAL TUNNEL SURG Left 01/29/2022 Left Carpal tunnel release with nerve wrap SALPINGO-OOPHORECTOMY COMPL/PRTL UNI/BI SPX 2003 Salpingo-oophorectomy SKIN BIOPSY HX TOTAL ABDOMINAL HYSTERECT W/WO RMVL TUBE OVARY 2003 Hysterectomy, ELLIOT VAGINAL HYSTERECTOMY FAMILY HISTORY Problem Relation Age of Onset Heart Mother Diabetes Mother Cancer Mother UTERUS Diabetes Father Heart Father Cancer Maternal Grandmother UTERUS Colon Cancer Daughter Social History Tobacco Use Smoking status: Never Smokeless tobacco: Never Vaping Use Vaping status: Never Used Substance Use Topics Alcohol use: No Drug use: No Reviewed current medications, allergies, past medical history, surgical history, family history and social history today. REVIEW OF SYSTEMS Last A1c was 6.0 All other reviewed and negative other than HPI. HEALTH MAINTENANCE: Reviewed health maintenance issues today and recommended the following in detail. There are no preventive care reminders to display for this patient. VITALS: BP 112/62 Pulse 72 Wt 85.2 kg (187 lb 13.3 oz) SpO2 97% BMI 30.32 kg/m Last 4 Encounter Wt Readings: Date: Wt: 01/28/2024 86.6 kg (191 lb) 01/21/2024 86.3 kg (190 lb 4.1 oz) 09/30/2023 86.6 kg (191 lb) 03/31/2023 84.4 kg (186 lb) PHYSICAL EXAMINATION: General appearance: Well appearing, alert, in no acute distress, well-hydrated, well nourished. Skin: Skin color, texture, turgor normal, no suspicious rashes or lesions. Arm appears benign. Incision healing well. Head: Normocephalic, no masses, lesions, tenderness or abnormalities Eyes: Anicteric sclera. Pupils are equally round and reactive to light. Extraocular movements are intact. Ears: mild dry cerumen. Discussed debrox. Nose/Sinuses: Nares normal, septum midline, mucosa normal, no drainage or sinus tendernes Lungs: Lungs clear to auscultation. No wheezing, rhonchi, rales Heart: RRR without murmur, gallop, or rubs. No ectopy Abdomen: Normal abdominal exam, Abdomen soft, non-tender. Bowel sounds normal. No masses, organomegaly Extremities: No deformities, edema, skin discoloration, clubbing or cyanosis. Good capillary refill. ASSESSMENT/PLAN: 1. Essential hypertension, benign - ICD9: 401.1, ICD10: I10 (primary diagnosis) - Controlled - Continue current medications - COMPLETE BLOOD COUNT AND DIFFERENTIAL - COMPREHENSIVE METABOLIC PANEL - LIPID PANEL BASIC 2. Hyperlipidemia with target LDL less than 130 - ICD9: 272.4, ICD10: E78.5 - Controlled - Counseled on healthy diet and regular exercise 3. BPPV (benign paroxysmal positional vertigo), unspecified laterality - ICD9: 386.11, ICD10: H81.10 - stable. 4. Female stress incontinence - ICD9: 625.6, ICD10: N39.3 - stable. 5. Melanoma of left upper arm (HCC) - ICD9: 172.6, ICD10: C43.62 - per Dr Loco. 6. Impaired fasting glucose - ICD9: 790.21, ICD10: R73.01 - HEMOGLOBIN A1C 7. Spinal stenosis of lumbar region with neurogenic claudication - ICD9: 724.03, ICD10: M48.062 - stable. 8. Class 1 obesity with body mass index (BMI) of 30.0 to 30.9 in adult, unspecified obesity type, unspecified whether serious comorbidity present - ICD9: 278.00, V85.30, ICD10: E66.811, Z68.30 - stable. Braulio Whitney MD documented in this encounter [facility] 03-21-2024 Telephone encounter Note . [facility] 03-21-2024 Miscellaneous Notes . Patient has been identified by name and date of : Yes Patient phones for refill(s): Requested Prescriptions Pending Prescriptions Disp Refills lisinopril-hydroCHLOROthiazide (ZESTORETIC) 10-12.5 mg per tablet 90 tablet 1 Sig: Take 1 tablet by mouth every morning. Date of last office visit in primary care: 01/28/2024 Date of next office visit in primary care: 04/04/2024 [facility] Please advise. Thank you. Kelsi Johnson. documented in this encounter [facility] 03-21-2024 Telephone encounter Note Patient has been identified by name and date of : Yes Patient phones for refill(s): Requested Prescriptions Pending Prescriptions Disp Refills lisinopril-hydroCHLOROthiazide (ZESTORETIC) 10-12.5 mg per tablet 90 tablet 1 Sig: Take 1 tablet by mouth every morning. Date of last office visit in primary care: 01/28/2024 Date of next office visit in primary care: 04/04/2024 [facility] Please advise. Thank you. Kelsi Johnson. [facility] 03-09-2024 History of Present illness Narrative CDM Telephonic Outreach Provider Action/FYI Contacted for: Routine Telephonic Outreach Contact made with patient: Yes Patient identified by name and date of . Discussed care with patient Are you experiencing any new or worsening symptoms you need to talk about today? No Disease Specific Do you check your blood pressure at home? Yes, Enter readings: 117/62 Do you have new or worsening shortness of breath with activity? No No SOB Do you feel like you are dehydrated for any reason, including not being able to eat or drink normally, or having less urine/much darker urine than normal for you? No stays hydrated Urine wnl; yellow Do you check your daily weight at home? Yes,185 lb Have you noticed a sudden gain in weight greater than three pounds in a day or three pounds in a week? No Lives alone with cat Puss. + food Feels safe Based on geopolitics teacher, the following disposition is advised: No symptoms or symptoms present, not severe. Routed to: No Action Needed ZHANNA Education Provided this Outreach: No Sosa Bernstein RN March 09, 2024 10:26 AM Primary Care Coordination summary : 03/09/24 - No CDM concerns. 185 lb . Pt got Life alert to pt and wearing around neck Already outside today picking up [place] nuts documented in this encounter [facility] 02-13-2024 History of Present illness Narrative Primary Care Social Work Provider Action / FYI PCP Action None Date of Service: 02/13/2024 Patient identified by name and date of : Yes- via Telephone Referral Source: Referral Patient Outreach: Initial Mode of Outreach: Phone Call Response Time: Contact made Patient Identified Needs: Care Transition Resources: Medical alert system at home Assessment Payor Social supports Patient functional ability PCSW Action Taken Provide Patient Resources Education Is the patient ready for discharge? Yes Social Barrier resolution or patient discharge reason: Patient self-managing with resources given Narrative: Order received, chart reviewed. PCSW introduced self and explained reason for today's call. Pt confirmed she is interested in life alert system per the recommendation of her doctor. PCSW explained that medical alert systems are not covered by Medicare, but there are options with varying costs available based on what pt is looking for. Pt requested resources for medical alert systems be sent to her by mail. No other PCSW needs at this time. Interventions: Advocacy Assessment Education Empowering/Coaching Goal Setting HORTENCIA Moore February 13, 2024 11:20 AM documented in this encounter [facility] 02-10-2024 History of Present illness Narrative M Telephonic Outreach Provider Action/FYI Contacted for: Routine Telephonic Outreach Contact made with patient: No, left message. Sosa Bernstein RN February 10, 2024 9:42 AM Care Coordination next call- lvm x1 driving; cannot talk-call back Last CDM outreach contact: 01/13/24 - No CDM concerns. 186 lb . Baseline: 07/21/23 ADL, FALL, GOAL due: 02/04/24. Chronic disease goal - 12/09/22 -ckd 04/27/24 - 12/27/23- completed 04/28/23- HTN- 12/27/23- completed SDOH transportation and food insecurity completed: 12/09/22 documented in this encounter [facility] 01-28-2024 History of Present illness Narrative Patient presents with: ER F/U HPI: Patient presents today for office visit for ER follow up. HOSPITAL/ER FOLLOW UP: Reason for visit: Fall; She tripped over lawnmower in the garage while walking to her deep freezer. She landed on her left knee. Had swelling, bruising, and pain. Which facility: [facility] Date of visit: 01/21/24 Diagnosis: Contusion of left knee with hematoma Testing done: X-ray of knee just showed degenerative arthrosis Treatment given: Gordo wrap, tylenol Current symptoms: pain 08/27 No loc, no head injury. MEDICATIONS: Current Outpatient Medications Medication Sig pravastatin (PRAVACHOL) 40 mg tablet Take 1 tablet by mouth once daily. omeprazole (PRILOSEC) 40 mg capsule Take 1 capsule by mouth once daily. gabapentin (NEURONTIN) 100 mg capsule Take 100 mg by mouth three times a day. (Patient not taking: Reported on 01/21/2024) lisinopril-hydroCHLOROthiazide (ZESTORETIC) 10-12.5 mg per tablet Take 1 tablet by mouth every morning. latanoprost (XALATAN) 0.005 % ophthalmic solution Use 1 Drop in both eyes daily at bedtime. TO AFFECTED EYE(S) polyethylene glycol 3350 (MIRALAX ORAL) Take by mouth. Blood Pressure Cuff - Home Use BLOOD PRESSURE CUFF FOR HOME USE. DX: LABILE BLOOD PRESSURE Calcium Carbonate-Vitamin D2 600 mg calcium- 200 unit tab Take 1 tablet by mouth once daily. No current facility-administered medications for this visit. ALLERGIES: ALLERGIES No Known Allergies PAST MEDICAL HISTORY No date: Arthritis No date: Arthropathy, unspecified, site unspecified No date: Backache, unspecified 07/31/2018: CKD (chronic kidney disease) stage 3, GFR 30-59 ml/min ([facility]) No date: Diverticulosis of colon (without mention of hemorrhage) No date: Essential hypertension, benign No date: Female stress incontinence Comment: mild 09/03/2020: Melanoma ([facility]) Comment: Right anterior proximal upper arm No date: Nonspecific abnormal electrocardiogram (ECG) (EKG) Comment: PAC No date: Other and unspecified hyperlipidemia 07/31/2018: Reactive depression No date: Symptomatic menopausal or female climacteric states PAST SURGICAL HISTORY No date: ABDOMINAL SURGERY HX No date: APPENDECTOMY No date: APPENDECTOMY HX No date: CHOLECSTOT/CHOLECSTOST W/EXPL DRG/RMVL ST1 SPX 2001: COLONOSCOPY FLX DX W/COLLJ SPEC WHEN PFRMD Comment: Colonoscopy 01/05/2012: COLONOSCOPY FLX DX W/COLLJ SPEC WHEN PFRMD Comment: Colonoscopy 01/13/2021: COLONOSCOPY FLX DX W/COLLJ SPEC WHEN PFRMD No date: DILATION & CURETTAGE DX&/THER NONOBSTETRIC Comment: Dilation & curettage 01/13/2021: ESOPHAGOGASTRODUODENOSCOPY TRANSORAL DIAGNOSTIC No date: EXC/DSTRJ LINGUAL TONSIL ANY METHOD SPX No date: LIG/TRNSXJ FLP TUBE ABDL/VAG APPR UNI/BI Comment: Tubal ligation 06/08/2011: NEUROPLASTY &/TRANSPOS MEDIAN NRV CARPAL TUNNE Comment: Carpal tunnel decomp, right 2007: PAST SURGICAL HISTORY OF Comment: removal growth between toes =left No date: PAST SURGICAL HISTORY OF Comment: Multple myeloma's 06/28/2013: [facility] N/CARPAL TUNNEL SURG Comment: left CTR 01/29/2022: [facility] N/CARPAL TUNNEL SURG; Left Comment: Left Carpal tunnel release with nerve wrap 2002: SALPINGO-OOPHORECTOMY COMPL/PRTL UNI/BI SPX Comment: Salpingo-oophorectomy No date: SKIN BIOPSY HX 2003: TOTAL ABDOMINAL HYSTERECT W/WO RMVL TUBE OVARY Comment: Hysterectomy, ELLIOT No date: VAGINAL HYSTERECTOMY FAMILY HISTORY Problem Relation Age of Onset Heart Mother Diabetes Mother Cancer Mother UTERUS Diabetes Father Heart Father Cancer Maternal Grandmother UTERUS Colon Cancer Daughter Social History Tobacco Use Smoking status: Never Smokeless tobacco: Never Vaping Use Vaping Use: Never used Substance Use Topics Alcohol use: No Drug use: No Reviewed current medications, allergies, past medical history, surgical history, family history and social history today. REVIEW OF SYSTEMS All other reviewed and negative other than HPI. HEALTH MAINTENANCE: Reviewed health maintenance issues today and recommended the following in detail. Advance Directive Discussion due on 06/20/2023 Covid-19 Vaccine( season) due on 08/14/2023 VITALS: BP 122/68 Pulse (!) 54 Wt 86.6 kg (191 lb) SpO2 96% BMI 30.83 kg/m Last 4 Encounter Wt Readings: Date: Wt: 01/21/2024 86.3 kg (190 lb 4.1 oz) 09/30/2023 86.6 kg (191 lb) 03/31/2023 84.4 kg (186 lb) 03/17/2023 83 kg (183 lb) PHYSICAL EXAMINATION: General appearance: Well appearing, alert, in no acute distress, well-hydrated, well nourished. Skin: Skin color, texture, turgor normal, no suspicious rashes or lesions Lungs: Lungs clear to auscultation. No wheezing, rhonchi, rales Heart: RRR without murmur, gallop, or rubs. No ectopy Abdomen: Normal abdominal exam, Abdomen soft, non-tender. Bowel sounds normal. No masses, organomegaly Extremities: No deformities, edema, skin discoloration, clubbing or cyanosis. Good capillary refill. Knee shows normal range. No instability. Hematoma on perez. Not red or warm. Normal pps Normal movement. ASSESSMENT/PLAN: 1. Acute pain of left knee - ICD9: 719.46, ICD10: M25.562 (primary diagnosis) - ice and heat prn. Elevation prn. Red flags for re-assessment reviewed with patient in detail. 2. Contusion of left lower leg, subsequent encounter - ICD9: V58.89, 924.10, ICD10: S80.12XD - call if any issues. Braulio Whitney MD documented in this encounter [facility] 01-21-2024 History of Present illness Narrative Patient presents with: Left Knee Pain: Fell about two hours ago, left knee swollen HPI: Left knee pain: Duration: tripped carrying applesauce in the garage and hit her left knee Location: anterior left knee Character: sharp Radiation: No. Aggravating: standing and walking Relieving: Put frozen zucchini on it Pain relievers: MEDICATIONS: pravastatin (PRAVACHOL) 40 mg tablet Take 1 tablet by mouth once daily. omeprazole (PRILOSEC) 40 mg capsule Take 1 capsule by mouth once daily. lisinopril-hydroCHLOROthiazide (ZESTORETIC) 10-12.5 mg per tablet Take 1 tablet by mouth every morning. latanoprost (XALATAN) 0.005 % ophthalmic solution Use 1 Drop in both eyes daily at bedtime. TO AFFECTED EYE(S) polyethylene glycol 3350 (MIRALAX ORAL) Take by mouth. Blood Pressure Cuff - Home Use BLOOD PRESSURE CUFF FOR HOME USE. DX: LABILE BLOOD PRESSURE Calcium Carbonate-Vitamin D2 600 mg calcium- 200 unit tab Take 1 tablet by mouth once daily. gabapentin (NEURONTIN) 100 mg capsule Take 100 mg by mouth three times a day. (Patient not taking: Reported on 01/21/2024) ALLERGIES: ALLERGIES No Known Allergies VITALS: BP 136/84 (BP Site: Left Arm, BP Position: Sitting, BP Cuff Size: Regular Adult) Pulse (!) 58 Temp 36.5 C (97.7 F) Resp 16 Wt 86.3 kg (190 lb 4.1 oz) SpO2 97% BMI 30.71 kg/m PHYSICAL EXAM: GEN: pleasant, alert, no acute distress. Accompanied by her daughter KNEE: left. Abrasion over the patella with possible swelling of the anterior knee. No deformity. FROM. Patellar, medial, lateral, and anterior joint line tenderness. Stable to varus and valgus strain. Negative anterior drawer test. Negative posterior drawer test. Painful with weightbearing. Antalgic gait. ASSESSMENT/PLAN: 1. Acute pain of left knee - ICD9: 719.46, ICD10: M25.562 Evaluation and treatment options reviewed. X-ray is not available until Tuesday (2 days). Nonweightbearing and return for x-ray versus ER evaluation and x-ray today. She is not a good candidate for crutches due to stability. Her daughter will take her to the emergency room this afternoon. Jamey Dye MD documented in this encounter [facility] 01-13-2024 History of Present illness Narrative [facility] Telephonic Outreach Provider Action/FYI Contacted for: Routine Telephonic Outreach Contact made with patient: Yes Patient identified by name and date of . Discussed care with patient Are you experiencing any new or worsening symptoms you need to talk about today? No Disease Specific Do you check your blood pressure at home? Yes, Enter readings: not reported Do you have new or worsening shortness of breath with activity? No Do you feel like you are dehydrated for any reason, including not being able to eat or drink normally, or having less urine/much darker urine than normal for you? No Do you check your daily weight at home? Yes, Have you noticed a sudden gain in weight greater than three pounds in a day or three pounds in a week? No Based on geopolitics teacher, the following disposition is advised: No symptoms or symptoms present, not severe. Routed to: No Action Needed ZHANNA Education Provided this Outreach: No Sosa Bernstein RN January 13, 2024 10:45 AM Care Coordination next call- Last CDM outreach contact: 01/13/24 - No CDM concerns. 186 lb . Baseline: 07/21/23 ADL, FALL, GOAL due: 02/04/24. Chronic disease goal - 12/09/22 -ckd 04/27/24 - 12/27/23- completed 04/28/23- HTN- 12/27/23- completed SDOH transportation and food insecurity completed: 12/09/22 documented in this encounter [facility] 12-19-2023 Telephone encounter Note Prescription Refill Information The patient has been identified by name and date of : Yes Caregiver verified no other encounters exist for this prescription request: Yes Caregiver confirmed with patient/requestor that no other refills are due, in the near future, with this provider at this time: Yes The last office visit in the department: 09-30-23 Does the patient have a future office visit with this provider/department: Yes Requested Prescriptions Pending Prescriptions Disp Refills pravastatin (PRAVACHOL) 40 mg tablet 90 tablet 3 Sig: Take 1 tablet by mouth once daily. Natasha Awad December 19, 2023 9:21 AM [facility] 12-19-2023 Miscellaneous Notes Prescription Refill Information The patient has been identified by name and date of : Yes Caregiver verified no other encounters exist for this prescription request: Yes Caregiver confirmed with patient/requestor that no other refills are due, in the near future, with this provider at this time: Yes The last office visit in the department: 09-30-23 Does the patient have a future office visit with this provider/department: Yes Requested Prescriptions Pending Prescriptions Disp Refills pravastatin (PRAVACHOL) 40 mg tablet 90 tablet 3 Sig: Take 1 tablet by mouth once daily. Natasha Awad December 19, 2023 9:21 AM documented in this encounter [facility] 12-16-2023 Telephone encounter Note Prescription Refill Information The patient has been identified by name and date of : Yes Caregiver verified no other encounters exist for this prescription request: Yes Caregiver confirmed with patient/requestor that no other refills are due, in the near future, with this provider at this time: Yes The last office visit in the department: 09-30-23 Does the patient have a future office visit with this provider/department: Yes Requested Prescriptions Pending Prescriptions Disp Refills omeprazole (PRILOSEC) 40 mg capsule 90 capsule 3 Sig: Take 1 capsule by mouth once daily. Natasha Awad December 16, 2023 8:29 AM [facility] Work Phone: 12-16-2023 Miscellaneous Notes Prescription Refill Information The patient has been identified by name and date of : Yes Caregiver verified no other encounters exist for this prescription request: Yes Caregiver confirmed with patient/requestor that no other refills are due, in the near future, with this provider at this time: Yes The last office visit in the department: 09-30-23 Does the patient have a future office visit with this provider/department: Yes Requested Prescriptions Pending Prescriptions Disp Refills omeprazole (PRILOSEC) 40 mg capsule 90 capsule 3 Sig: Take 1 capsule by mouth once daily. Natasha Awad December 16, 2023 8:29 AM documented in this encounter [facility] 12-14-2023 History of Present illness Narrative M Telephonic Outreach Provider Action/FYI Contacted for: Routine Telephonic Outreach Contact made with patient: Yes Patient identified by name and date of . Discussed care with patient Are you experiencing any new or worsening symptoms you need to talk about today? No Disease Specific Do you check your blood pressure at home? Yes, Enter readings: 130/73 Do you have new or worsening shortness of breath with activity? No Do you feel like you are dehydrated for any reason, including not being able to eat or drink normally, or having less urine/much darker urine than normal for you? No Do you check your daily weight at home? Yes, Have you noticed a sudden gain in weight greater than three pounds in a day or three pounds in a week? No Based on geopolitics teacher, the following disposition is advised: No symptoms or symptoms present, not severe. Routed to: No Action Needed ZHANNA Education Provided this Outreach: No Sosa Bernstein RN December 14, 2023 3:59 PM Care Coordination next call- Last CDM outreach contact: 12/14/23 - No CDM concerns. 184 lb . Baseline: 07/21/23 ADL, FALL, GOAL due: 02/04/24. Chronic disease goal - 12/09/22 -ckd 04/27/23-Reviewed/zones/management 12/09/22 04/28/23- HTN SDOH transportation and food insecurity completed: 12/09/22 PCP: 09/30/23 documented in this encounter [facility] 11-18-2023 History of Present illness Narrative [facility] Telephonic Outreach Provider Action/FYI Contacted for: Routine Telephonic Outreach Contact made with patient: Yes Patient identified by name and date of . Discussed care with patient Are you experiencing any new or worsening symptoms you need to talk about today? No Disease Specific Do you check your blood pressure at home? Yes, Enter readings: 125/90 recommended if consistent readings > 140/90 to contact PCP for bp check. Pt agreed Do you have new or worsening shortness of breath with activity? No Do you feel like you are dehydrated for any reason, including not being able to eat or drink normally, or having less urine/much darker urine than normal for you? No Do you check your daily weight at home? Yes, Have you noticed a sudden gain in weight greater than three pounds in a day or three pounds in a week? No Based on geopolitics teacher, the following disposition is advised: No symptoms or symptoms present, not severe. Routed to: No Action Needed ZHANNA Education Provided this Outreach: No Sosa Bernstein RN November 18, 2023 9:16 AM Care Coordination next call- Last CDM outreach contact: 11/18/23 - No CDM concerns. 183 lb . Baseline: 07/21/23 ADL, FALL, GOAL due: 02/04/24. Chronic disease goal - 12/09/22 -ckd 04/27/23-Reviewed/zones/management 12/09/22 04/28/23- HTN SDOH transportation and food insecurity completed: 12/09/22 PCP: 09/30/23 documented in this encounter [facility] 11-10-2023 History of Present illness Narrative [facility] Telephonic Outreach Provider Action/FYI Contacted for: Routine Telephonic Outreach Contact made with patient: No, left message. Pt phone still not working properly. She answers and then phone disconnects; will re attempt Called daughter and had bad connection with her also. Daughter said pt was fine and had no concerns. Explained I will try to reach pt again next week. Sosa Bernstein RN November 10, 2023 1:56 PM Care Coordination next call- lvm x 2 Last CDM outreach contact: 10/12/23 - No CDM concerns. 183 lb . Going to get stimulator to bilat legs (bilat knees down tingling ; had MRI 08/01/23 @ [facility] and spine issues) Following with Dr Ember Browne at [place] Baseline: 07/21/23 ADL, FALL, GOAL due: 02/04/24. Chronic disease goal - 12/09/22 -ckd 04/27/23-Reviewed/zones/management 12/09/22 04/28/23- HTN SDOH transportation and food insecurity completed: 12/09/22 PCP: 09/30/23 CDM Telephonic Outreach Provider Action/FYI Contacted for: Routine Telephonic Outreach Contact made with patient: No, left message. contacted multiple times. Phone call static and hangs up Pt phone not working properly; will try call later Sosa Bernstein RN November 10, 2023 9:48 AM documented in this encounter [facility] 10-13-2023 History of Present illness Narrative [facility] Telephonic Outreach Provider Action/FYI Contacted for: Routine Telephonic Outreach Contact made with patient: Yes Patient identified by name and date of . Discussed care with patient Are you experiencing any new or worsening symptoms you need to talk about today? No Disease Specific Do you check your blood pressure at home? Yes, Enter readings: 122/89 Do you have new or worsening shortness of breath with activity? No Do you feel like you are dehydrated for any reason, including not being able to eat or drink normally, or having less urine/much darker urine than normal for you? No Do you check your daily weight at home? Yes, Have you noticed a sudden gain in weight greater than three pounds in a day or three pounds in a week? No Based on geopolitics teacher, the following disposition is advised: No symptoms or symptoms present, not severe. Routed to: No Action Needed ZHANNA Education Provided this Outreach: No Sosa Bernstein RN October 13, 2023 10:04 AM Care Coordination next call- Last CDM outreach contact: 10/12/23 - No CDM concerns. 183 lb . Going to get stimulator to bilat legs (bilat knees down tingling ; had MRI 08/01/23 @ [facility] and spine issues) Following with Dr Ember Browne at [place] Baseline: 07/21/23 ADL, FALL, GOAL due: 02/04/24. Chronic disease goal - 12/09/22 -ckd 04/27/23-Reviewed/zones/management 12/09/22 04/28/23- HTN SDOH transportation and food insecurity completed: 12/09/22 PCP: 09/30/23 documented in this encounter [facility] 10-03-2023 Miscellaneous Notes Patient informed. Alyx Rankin MA Sugars are ok. documented in this encounter [facility] 09-30-2023 History of Present illness Narrative Patient presents with: 6 Month Exam HPI: Patient presents today for office visit for 6 month follow up. HTN: Continues on Zestoretic 10-12.5 daily Monitors BP Stable Denies chest pain and shortness of breath Denies dizziness Admits to headaches daily since starting Gabapentin 100 mg TID a little over two weeks ago. Denies palpitations and syncope Denies edema HLD: No myalgias GERD: Symptoms controlled Recently started on Gabapentin for Neuropathy. Causing headaches and not helping with pain. They are considering trying a spinal cord simulator. Seeing pain management. Still seeing Dr Loco. Latest Ref Rng 03/18/2023 WBC 3.70 - 11.00 k/uL 8.71 RBC 3.90 - 5.20 m/uL 5.64 (H) Hemoglobin 11.5 - 15.5 g/dL 14.4 Hematocrit 36.0 - 46.0 % 45.5 MCV 80.0 - 100.0 fL 80.7 MCH 26.0 - 34.0 pg 25.5 (L) MCHC 30.5 - 36.0 g/dL 31.6 RDW-CV 11.5 - 15.0 % 16.0 (H) Platelet Count 150 - 400 k/uL 300 MPV 9.0 - 12.7 fL 9.6 Neut% % 71.0 Abs Neut (ANC) 1.45 - 7.50 k/uL 6.19 Lymph% % 23.3 Abs Lymph 1.00 - 4.00 k/uL 2.03 [place]% % 5.1 Abs [place] <0.87 k/uL 0.44 Eosin% % 0.0 Abs Eosin <0.46 k/uL <0.03 Baso% % 0.1 Abs Baso <0.11 k/uL <0.03 Immature Gran % % 0.5 IMMATURE GRANS (ABS) <0.10 k/uL 0.04 NRBC /100 WBC 0.0 Absolute nRBC <0.01 k/uL <0.01 DTYPE Auto Protein, Total 6.3 - 8.0 g/dL 6.5 Albumin 3.9 - 4.9 g/dL 4.3 Calcium 8.5 - 10.2 mg/dL 10.0 Bilirubin, Total 0.2 - 1.3 mg/dL 0.3 Alkaline Phosphatase 34 - 123 U/L 78 AST 13 - 35 U/L 19 ALT 7 - 38 U/L 16 Glucose 74 - 99 mg/dL 99 BUN 7 - 21 mg/dL 13 Creatinine 0.58 - 0.96 mg/dL 0.85 Sodium 136 - 144 mmol/L 136 Potassium 3.7 - 5.1 mmol/L 4.2 Chloride 97 - 105 mmol/L 98 CO2 22 - 30 mmol/L 26 Anion Gap 9 - 18 mmol/L 12 eGFR >=60 mL/min/1.73m 69 Cholesterol, Total <200 mg/dL 188 Triglyceride <150 mg/dL 100 HDL Cholesterol >39 mg/dL 61 Non HDL Cholesterol <130 mg/dL 127 Fasting Time hrs 14 VLDL Cholesterol <30 mg/dL 20 TC:HDL Ratio <5.10 3.08 LDL Cholesterol <100 mg/dL 107 (H) LDL:HDL Ratio <2.54 1.75 Hemoglobin A1C 4.3 - 5.6 % 6.0 (H) Estimated Average Glucose mg/dL 126 Lipase 16 - 61 U/L 20 Legend: (H) High (L) Low MEDICATIONS: Current Outpatient Medications Medication Sig gabapentin (NEURONTIN) 100 mg capsule Take 100 mg by mouth three times a day. omeprazole (PRILOSEC) 40 mg capsule Take 1 capsule by mouth once daily. lisinopril-hydroCHLOROthiazide (ZESTORETIC) 10-12.5 mg per tablet Take 1 tablet by mouth every morning. latanoprost (XALATAN) 0.005 % ophthalmic solution Use 1 Drop in both eyes daily at bedtime. TO AFFECTED EYE(S) pravastatin (PRAVACHOL) 40 mg tablet Take 1 tablet by mouth once daily. polyethylene glycol 3350 (MIRALAX ORAL) Take by mouth. Blood Pressure Cuff - Home Use BLOOD PRESSURE CUFF FOR HOME USE. DX: LABILE BLOOD PRESSURE Calcium Carbonate-Vitamin D2 600 mg calcium- 200 unit tab Take 1 tablet by mouth once daily. No current facility-administered medications for this visit. ALLERGIES: ALLERGIES No Known Allergies PAST MEDICAL HISTORY Diagnosis Date Arthritis Arthropathy, unspecified, site unspecified Backache, unspecified CKD (chronic kidney disease) stage 3, GFR 30-59 ml/min ([facility]) 07/31/2018 Diverticulosis of colon (without mention of hemorrhage) Essential hypertension, benign Female stress incontinence mild Melanoma ([facility]) 09/03/2020 Right anterior proximal upper arm Nonspecific abnormal electrocardiogram (ECG) (EKG) PAC Other and unspecified hyperlipidemia Reactive depression 07/31/2018 Symptomatic menopausal or female climacteric states PAST SURGICAL HISTORY Procedure Laterality Date ABDOMINAL SURGERY HX APPENDECTOMY APPENDECTOMY HX CHOLECSTOT/CHOLECSTOST W/EXPL DRG/RMVL ST1 SPX COLONOSCOPY FLX DX W/COLLJ SPEC WHEN PFRMD 2001 Colonoscopy COLONOSCOPY FLX DX W/COLLJ SPEC WHEN PFRMD 01/05/2012 Colonoscopy COLONOSCOPY FLX DX W/COLLJ SPEC WHEN PFRMD 01/13/2021 DILATION & CURETTAGE DX&/THER NONOBSTETRIC Dilation & curettage ESOPHAGOGASTRODUODENOSCOPY TRANSORAL DIAGNOSTIC 01/13/2021 EXC/DSTRJ LINGUAL TONSIL ANY METHOD SPX LIG/TRNSXJ FLP TUBE ABDL/VAG APPR UNI/BI Tubal ligation NEUROPLASTY &/TRANSPOS MEDIAN NRV CARPAL TUNNE 06/08/2011 Carpal tunnel decomp, right PAST SURGICAL HISTORY OF 2007 removal growth between toes =left PAST SURGICAL HISTORY OF Multple myeloma's [facility] N/CARPAL TUNNEL SURG 06/28/2013 left CTR [facility] N/CARPAL TUNNEL SURG Left 01/29/2022 Left Carpal tunnel release with nerve wrap SALPINGO-OOPHORECTOMY COMPL/PRTL UNI/BI SPX 2003 Salpingo-oophorectomy SKIN BIOPSY HX TOTAL ABDOMINAL HYSTERECT W/WO RMVL TUBE OVARY 2003 Hysterectomy, ELLIOT VAGINAL HYSTERECTOMY FAMILY HISTORY Problem Relation Age of Onset Heart Mother Diabetes Mother Cancer Mother UTERUS Diabetes Father Heart Father Cancer Maternal Grandmother UTERUS Colon Cancer Daughter Social History Tobacco Use Smoking status: Never Smokeless tobacco: Never Vaping Use Vaping Use: Never used Substance Use Topics Alcohol use: No Drug use: No Reviewed current medications, allergies, past medical history, surgical history, family history and social history today. REVIEW OF SYSTEMS All other reviewed and negative other than HPI. HEALTH MAINTENANCE: Reviewed health maintenance issues today and recommended the following in detail. RSV Vaccine(1 - 1-dose 60+ series) Never done Advance Directive Discussion due on 06/20/2023 Behavioral Health Screening-done. Scoring 0. No intervention needed. VITALS: BP 120/60 Pulse 60 Ht 167.6 cm (5' 6) Wt 86.6 kg (191 lb) SpO2 97% BMI 30.83 kg/m Last 4 Encounter Wt Readings: Date: Wt: 03/31/2023 84.4 kg (186 lb) 03/17/2023 83 kg (183 lb) 02/04/2023 86.6 kg (191 lb) 09/10/2022 88.8 kg (195 lb 12.8 oz) PHYSICAL EXAMINATION: General appearance: Well appearing, alert, in no acute distress, well-hydrated, well nourished. Skin: Skin color, texture, turgor normal, no suspicious rashes or lesions Head: Normocephalic, no masses, lesions, tenderness or abnormalities Lungs: Lungs clear to auscultation. No wheezing, rhonchi, rales Heart: RRR without murmur, gallop, or rubs. No ectopy Abdomen: Normal abdominal exam, Abdomen soft, non-tender. Bowel sounds normal. No masses, organomegaly Extremities: No deformities, edema, skin discoloration, clubbing or cyanosis. Good capillary refill. Musculoskeletal: No joint swelling, deformity, or tenderness ASSESSMENT/PLAN: 1. Essential hypertension, benign - ICD9: 401.1, ICD10: I10 (primary diagnosis) - Controlled - Continue current medications 2. Hyperlipidemia with target LDL less than 130 - ICD9: 272.4, ICD10: E78.5 - Controlled - Continue current medications 3. Female stress incontinence - ICD9: 625.6, ICD10: N39.3 - stable. 4. Melanoma of left upper arm (HCC) - ICD9: 172.6, ICD10: C43.62 - per derm. 5. History of iron deficiency - ICD9: V12.3, ICD10: Z86.39 Stable. 6. Spinal stenosis of lumbar region with neurogenic claudication - ICD9: 724.03, ICD10: M48.062 - stable. 7. Hyperglycemia - ICD9: 790.29, ICD10: R73.9 - check labs. Braulio Whitney RTO in six months and prn. documented in this encounter [facility] 08-25-2023 Miscellaneous Notes Omeprazole renewed per patient request. documented in this encounter [facility] 08-25-2023 Miscellaneous Notes Patient has been identified by name and date of : Yes, Provider Devonte Date 08/25/23 Time 12:00pm Patient phones for refill(s): Requested Prescriptions Pending Prescriptions Disp Refills omeprazole (PRILOSEC) 40 mg capsule 90 capsule 3 Sig: Take 1 capsule by mouth once daily. Date of last office visit in primary care: 03/31/2023 Date of next office visit in primary care: 09/30/2023 Please advise. Thank you. Taya Paige Ma. Patient has been identified by name and date of : Yes Requested Prescriptions Pending Prescriptions Disp Refills omeprazole (PRILOSEC) 40 mg capsule 90 capsule 3 Sig: Take 1 capsule by mouth once daily. RX INSTRUCTIONS: Patient aware RX escripted to mail away pharmacy. No need to notify patient. Beverly Dutton Pss documented in this encounter [facility] 08-18-2023 History of Present illness Narrative CDM Telephonic Outreach Provider Action/FYI Contacted for: Routine Telephonic Outreach Contact made with patient: Yes Patient identified by name and date of . Discussed care with patient Are you experiencing any new or worsening symptoms you need to talk about today? No Disease Specific Do you check your blood pressure at home? Yes, Enter readings: 141/83 Do you have new or worsening shortness of breath with activity? No Do you feel like you are dehydrated for any reason, including not being able to eat or drink normally, or having less urine/much darker urine than normal for you? No Do you check your daily weight at home? Yes, Have you noticed a sudden gain in weight greater than three pounds in a day or three pounds in a week? No Based on geopolitics teacher, the following disposition is advised: No symptoms or symptoms present, not severe. Routed to: No Action Needed ZHANNA Education Provided this Outreach: No Sosa Bernstein RN August 18, 2023 9:08 AM Care Coordination next call- Last CDM outreach contact: 08/18/23 - No CDM concerns. 186 lb . Going to get stimulator to bilat legs (bilat knees down tingling ; had MRI 08/01/23 @ [facility] and spine issues) Following with Dr Ember Browne at [place] Baseline: 07/21/23 ADL, FALL, GOAL due: 02/04/24. Chronic disease goal - 12/09/22 -ckd 04/27/23-Reviewed/zones/management 12/09/22 04/28/23- HTN SDOH transportation and food insecurity completed: 12/09/22 PCP: 09/30/23 documented in this encounter [facility] 07-21-2023 History of Present illness Narrative CDM Telephonic Outreach Provider Action/FYI Contacted for: Routine Telephonic Outreach Contact made with patient: Yes Patient identified by name and date of . Discussed care with patient Are you experiencing any new or worsening symptoms you need to talk about today? No Disease Specific Do you check your blood pressure at home? Yes, Enter readings: 131/73 Do you have new or worsening shortness of breath with activity? No No SOB Do you feel like you are dehydrated for any reason, including not being able to eat or drink normally, or having less urine/much darker urine than normal for you? No stays hydrated Urine wnl; yellow Do you check your daily weight at home? Yes, 193-194 lbs Have you noticed a sudden gain in weight greater than three pounds in a day or three pounds in a week? No Lives alone with cat Puss. + food Feels safe Based on geopolitics teacher, the following disposition is advised: No symptoms or symptoms present, not severe. Routed to: No Action Needed ZHANNA Education Provided this Outreach: No Sosa Bernstein RN July 21, 2023 9:55 AM Care Coordination next call- Last CDM outreach contact: 07/21/23 - No CDM concerns. Fell a couple weeks ago and hip hurting. At chiropractor right now. Baseline: 07/21/23 ADL, FALL, GOAL due: 02/04/24. Chronic disease goal - 12/09/22 -ckd 04/27/23-Reviewed/zones/management 12/09/22 04/28/23- HTN SDOH transportation and food insecurity completed: 12/09/22 PCP: 09/30/23 documented in this encounter [facility] 05-26-2023 History of Present illness Narrative CDM Telephonic Outreach Provider Action/FYI Contacted for: Routine Telephonic Outreach Contact made with patient: Yes Patient identified by name and date of . Discussed care with patient Are you experiencing any new or worsening symptoms you need to talk about today? No Disease Specific Do you check your blood pressure at home? Yes, Enter readings: 142/81 Do you have new or worsening shortness of breath with activity? No Do you feel like you are dehydrated for any reason, including not being able to eat or drink normally, or having less urine/much darker urine than normal for you? No Do you check your daily weight at home? Yes, Have you noticed a sudden gain in weight greater than three pounds in a day or three pounds in a week? No Based on geopolitics teacher, the following disposition is advised: No symptoms or symptoms present, not severe. Routed to: No Action Needed ZHANNA Education Provided this Outreach: No Sosa Bernstein RN May 26, 2023 10:43 AM Care Coordination next call- Last CDM outreach contact: 05/26/23 - Pt canceled appt. 05/02 Gave inaccurate reading last month. 137/70, not 173/70 Flank pain improved Baseline: 12/09/22 ADL, FALL, GOAL due: 02/04/24. Chronic disease goal - 12/09/22 -ckd 04/27/23-Reviewed/zones/management 12/09/22 04/28/23- HTN SDOH transportation and food insecurity completed: 12/09/22 PCP: 03/31/23 documented in this encounter [facility] 05-18-2023 Miscellaneous Notes Patient has been identified by name and date of : Yes Requested Prescriptions Pending Prescriptions Disp Refills lisinopril-hydroCHLOROthiazide (ZESTORETIC) 10-12.5 mg per tablet 90 tablet 3 Sig: Take 1 tablet by mouth every morning. latanoprost (XALATAN) 0.005 % ophthalmic solution 0 Sig: Use 1 Drop in both eyes daily at bedtime. TO AFFECTED EYE(S) RX INSTRUCTIONS: Patient aware RX will be sent to pharmacy. No need to notify patient. Sosa Awad documented in this encounter [facility] 04-28-2023 History of Present illness Narrative [facility] NAVIGATION OUTREACH Action/FYI April 28, 2023 11:16 AM Spoke with patient. She has been scheduled with Dary Hendrix CNP on May 02, 2023 Thank you Patient Identified by Name and : YES, via phone Outreach Outcome/Action Spoke to patient / parent / legal guardian: Patient scheduled Did you use a PCP flex slot to schedule this appointment? No Reason for Outreach [facility] Payer: Payor: [employer] MEDICARE / Plan: [employer] MEDICARE PPO / Product Type: PPO / Care Gap Reviewed:: Follow-up appointment Reminder: Reminder note to check Health Maintenance for items below Health Maintenance items due: RSV Vaccine(1 - 1-dose 60+ series) Never done Navigation Signature: Maria Alejandra Brizuela MA April 28, 2023 11:16 AM CDM Telephonic Outreach Provider Action/FYI Navigator Please schedule pt appt with PCP for persistent worsening right flank pain and elevated BP x 1 week. Thank you Contacted for: Routine Telephonic Outreach Contact made with patient: Yes Patient identified by name and date of . Discussed care with patient Are you experiencing any new or worsening symptoms you need to talk about today? No pt states she has worsening daily right flank pain. Ongoing for 6 months, but progressively getting worse. Recommended appt with PCP routed to navigator Disease Specific Do you check your blood pressure at home? Yes, Enter readings: 170/84 Pt states for last week been > 140/80. Recommended appt for BP check Takes medication as prescribed. MARIANNE diet Do you have new or worsening shortness of breath with activity? No Do you feel like you are dehydrated for any reason, including not being able to eat or drink normally, or having less urine/much darker urine than normal for you? No Do you check your daily weight at home? Yes, Have you noticed a sudden gain in weight greater than three pounds in a day or three pounds in a week? No 182 lb Based on geopolitics teacher, the following disposition is advised: No symptoms or symptoms present, not severe. Routed to: Navigation Team: PCP visit within 7 days ZHANNA Education Provided this Outreach: No Sosa Bernstein RN April 28, 2023 10:42 AM Care Coordination next call- Last CDM outreach contact: 03/31 - Pt BP elevated x 1 wk and having persistent right flank pain that is getting worse; routed to [facility] team for appt. Reviewed renal diet basics Baseline: 12/09/22 ADL, FALL, GOAL due: 02/04/24. Chronic disease goal - 12/09/22 -ckd 04/27/23- reviewed renal diet basics. 04/28/23- HTN SDOH transportation and food insecurity completed: 12/09/22 PCP: 03/31/23 documented in this encounter [facility] 03-31-2023 History of Present illness Narrative [facility] Telephonic Outreach Provider Action/FYI Contacted for: Routine Telephonic Outreach Contact made with patient: Yes Patient identified by name and date of . Discussed care with patient Are you experiencing any new or worsening symptoms you need to talk about today? No Disease Specific Do you check your blood pressure at home? Yes, Enter readings: 110/60 Do you have new or worsening shortness of breath with activity? No Do you feel like you are dehydrated for any reason, including not being able to eat or drink normally, or having less urine/much darker urine than normal for you? No Do you check your daily weight at home? Yes, Have you noticed a sudden gain in weight greater than three pounds in a day or three pounds in a week? No Based on geopolitics teacher, the following disposition is advised: No symptoms or symptoms present, not severe. Routed to: No Action Needed ZHANNA Education Provided this Outreach: No Sosa Bernstein RN March 31, 2023 10:44 AM Care Coordination next call- Last CDM outreach contact: 03/31 - No CDM concerns, appt with PCP office today Baseline: 12/09/22 ADL, FALL, GOAL due: 02/04/24. Chronic disease goal - 12/09/22 -ckd SDOH transportation and food insecurity completed: 12/09/22 PCP: 03/31/23 documented in this encounter [facility] 03-31-2023 History of Present illness Narrative 82 year old female with c/o 2 week follow up 03/31/[address] Whitney Has some pain under her right rib. Worse in the AM. Has been going on for maybe a month. Is daily. Is mildly uncomfortable. Feels solid No nausea or vomiting or diarrhea or constipation. Did have a cough a week ago. No fever or chills. Seems to be improving. Used coricidin hbp. Did not test covid. - Dx Bronchitis treated with Doxycycline 100mg twice a day, medrol dose pack, albuterol MDI, CXR WNL Current sx: Antibiotics really helped. Feels resolved, still a little dry cough. No fatigue out of the ordinary, always. Lab review: Component Latest Ref Rng & Units 04/23/2022 03/18/2023 WBC 3.70 - 11.00 k/uL 7.50 8.71 RBC 3.90 - 5.20 m/uL 5.55 (H) 5.64 (H) Hemoglobin 11.5 - 15.5 g/dL 13.7 14.4 Hematocrit 36.0 - 46.0 % 43.8 45.5 MCV 80.0 - 100.0 fL 78.9 (L) 80.7 MCH 26.0 - 34.0 pg 24.7 (L) 25.5 (L) MCHC 30.5 - 36.0 g/dL 31.3 31.6 RDW-CV 11.5 - 15.0 % 16.0 (H) 16.0 (H) Platelet Count 150 - 400 k/uL 257 300 MPV 9.0 - 12.7 fL 9.9 9.6 Neut% % 59.9 71.0 Abs Neut (ANC) 1.45 - 7.50 k/uL 4.50 6.19 Lymph% % 33.1 23.3 Abs Lymph 1.00 - 4.00 k/uL 2.48 2.03 [place]% % 5.6 5.1 Abs [place] <0.87 k/uL 0.42 0.44 Eosin% % 0.8 0.0 Abs Eosin <0.46 k/uL 0.06 <0.03 Baso% % 0.3 0.1 Abs Baso <0.11 k/uL <0.03 <0.03 Immature Gran % % 0.3 0.5 IMMATURE GRANS (ABS) <0.10 k/uL <0.03 0.04 NRBC /100 WBC 0.0 0.0 Absolute nRBC <0.01 k/uL <0.01 <0.01 DTYPE Auto Auto Protein, Total 6.3 - 8.0 g/dL 6.6 6.5 Albumin 3.9 - 4.9 g/dL 4.2 4.3 Calcium 8.5 - 10.2 mg/dL 9.8 10.0 Bilirubin, Total 0.2 - 1.3 mg/dL 0.4 0.3 Alkaline Phosphatase 34 - 123 U/L 87 78 AST 13 - 35 U/L 22 19 ALT 7 - 38 U/L 13 16 Glucose 74 - 99 mg/dL 101 (H) 99 BUN 7 - 21 mg/dL 18 13 Creatinine 0.58 - 0.96 mg/dL 0.93 0.85 Sodium 136 - 144 mmol/L 136 136 Potassium 3.7 - 5.1 mmol/L 4.3 4.2 Chloride 97 - 105 mmol/L 99 98 CO2 22 - 30 mmol/L 27 26 Anion Gap 9 - 18 mmol/L 10 12 eGFR >=60 mL/min/1.73m 62 69 Cholesterol, Total <200 mg/dL 189 188 Triglyceride <150 mg/dL 126 100 HDL Cholesterol >39 mg/dL 57 61 Non HDL Cholesterol <130 mg/dL 132 (H) 127 Fasting Time hrs 12 14 VLDL Cholesterol <30 mg/dL 25 20 TC:HDL Ratio <5.10 3.32 3.08 LDL Cholesterol <100 mg/dL 107 (H) 107 (H) LDL:HDL Ratio <2.54 1.88 1.75 Hemoglobin A1C 4.3 - 5.6 % 6.0 (H) 6.0 (H) Estimated Average Glucose mg/dL 126 126 Lipase 16 - 61 U/L 20 Feels hungry all the time: trying to cut back. Has lost a little weight. Manages back pain without complication. Taking Anaprox 220mg twice a day Can't walk very far before legs cramp Surgery was discussed but she feels she's too old to risk complications. HISTORIES FAMILY HISTORY Problem Relation Age of Onset Heart Mother Diabetes Mother Cancer Mother UTERUS Diabetes Father Heart Father Cancer Maternal Grandmother UTERUS Colon Cancer Daughter PAST MEDICAL HISTORY Diagnosis Date Arthritis Arthropathy, unspecified, site unspecified Backache, unspecified CKD (chronic kidney disease) stage 3, GFR 30-59 ml/min ([facility]) 07/31/2018 Diverticulosis of colon (without mention of hemorrhage) Essential hypertension, benign Female stress incontinence mild Melanoma (HCC) 09/03/2020 Right anterior proximal upper arm Nonspecific abnormal electrocardiogram (ECG) (EKG) PAC Other and unspecified hyperlipidemia Reactive depression 07/31/2018 Symptomatic menopausal or female climacteric states PAST SURGICAL HISTORY Procedure Laterality Date ABDOMINAL SURGERY HX APPENDECTOMY APPENDECTOMY HX CHOLECSTOT/CHOLECSTOST W/EXPL DRG/RMVL ST1 SPX COLONOSCOPY FLX DX W/COLLJ SPEC WHEN PFRMD 2001 Colonoscopy COLONOSCOPY FLX DX W/COLLJ SPEC WHEN PFRMD 01/05/2012 Colonoscopy COLONOSCOPY FLX DX W/COLLJ SPEC WHEN PFRMD 01/13/2021 DILATION & CURETTAGE DX&/THER NONOBSTETRIC Dilation & curettage ESOPHAGOGASTRODUODENOSCOPY TRANSORAL DIAGNOSTIC 01/13/2021 EXC/DSTRJ LINGUAL TONSIL ANY METHOD SPX LIG/TRNSXJ FLP TUBE ABDL/VAG APPR UNI/BI Tubal ligation NEUROPLASTY &/TRANSPOS MEDIAN NRV CARPAL TUNNE 06/08/2011 Carpal tunnel decomp, right PAST SURGICAL HISTORY OF 2007 removal growth between toes =left PAST SURGICAL HISTORY OF Multple myeloma's [facility] N/CARPAL TUNNEL SURG 06/28/2013 left CTR [facility] N/CARPAL TUNNEL SURG Left 01/29/2022 Left Carpal tunnel release with nerve wrap SALPINGO-OOPHORECTOMY COMPL/PRTL UNI/BI SPX 2003 Salpingo-oophorectomy SKIN BIOPSY HX TOTAL ABDOMINAL HYSTERECT W/WO RMVL TUBE OVARY 2003 Hysterectomy, ELLIOT VAGINAL HYSTERECTOMY Social History Tobacco Use Smoking status: Never Smokeless tobacco: Never Vaping Use Vaping Use: Never used Substance Use Topics Alcohol use: No Drug use: No ACTIVE PROBLEM LIST Essential hypertension, benign Hyperlipidemia With Target Ldl Less Than 130 OBESITY Esophageal Reflux Postmenopausal Atrophic Vaginitis Female Stress Incontinence Carpal Tunnel Syndrome Melanoma of Left Upper Arm (Hcc) Stage 3a Chronic Kidney Disease (Hcc) Fibrocystic Disease of Left Breast Impaired Fasting Glucose Bppv (Benign Paroxysmal Positional Vertigo), Unspecified Laterality Spinal Stenosis of Lumbar Region With Neurogenic Claudication Glaucoma 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 1 Each 0 Blood Pressure Cuff - Home Use BLOOD PRESSURE CUFF FOR HOME USE. DX: LABILE BLOOD PRESSURE 1 Each 0 Calcium Carbonate-Vitamin D2 600 mg calcium- 200 unit tab Take 1 tablet by mouth once daily. 30 tablet 0 famotidine (PEPCID) 20 mg tablet Take 1 tablet by mouth at bedtime as needed. 30 tablet 0 latanoprost (XALATAN) 0.005 % ophthalmic solution Use 1 Drop in both eyes daily at bedtime. TO AFFECTED EYE(S) 0 lisinopril-hydroCHLOROthiazide (PRINZIDE,ZESTORETIC) 10-12.5 mg per tablet Take 1 tablet by mouth every morning. 90 tablet 3 metroNIDAZOLE (METROGEL) 0.75 % Topical Gel Apply to affected area twice daily. 45 g 0 naproxen sodium (ANAPROX) 220 mg tablet Take 220 mg by mouth twice daily with meals. omeprazole (PRILOSEC) 40 mg capsule Take 1 capsule by mouth once daily. 90 capsule 3 polyethylene glycol 3350 (MIRALAX ORAL) Take by mouth. pravastatin (PRAVACHOL) 40 mg tablet Take 1 tablet by mouth once daily. 90 tablet 3 No current facility-administered medications for this visit. There are no preventive care reminders to display for this patient. EXAM: BP 110/60 Pulse 60 Resp 16 Wt 84.4 kg (186 lb) SpO2 97% BMI 30.02 kg/m Pleasant well appearing older adult woman in no acute distress. Alert and oriented all spheres. Normal affect and cognition. Speech normal. No deficits to learning or comprehension. Skin warm, dry, pink to lips and nailbeds. Normal turgor. Respirations regular and unlabored. HEENT: NCAT. No scleral icterus or conjunctival injection. TM's clear. Nose and oropharynx free from injection or lesion. Oral membranes moist and pink. No cervical lymph nodes. Thyroid non-tender, no masses, or enlargement. Carotids pulses 2+/4+ without bruits. No JVD with HOB at 30 degrees. Chest is normal shape. Lungs are clear to all serra with good air exchange through out. HRRR without murmur or gallop. No lifts, heaves, or rubs. Extrem: no clubbing or cyanosis. Edema: none. Extremities are warm and pink with prompt capillary refill. ASSESSMENT/PLAN: 1. Essential hypertension, benign - ICD9: 401.1, ICD10: I10 (primary diagnosis) - Controlled - Continue current medications - Recommend home blood pressure monitoring, to bring results to next visit - Encouraged sodium restriction, DASH or Mediterranean diet - Recommend regular aerobic exercise 2. Hyperlipidemia with target LDL less than 130 - ICD9: 272.4, ICD10: E78.5 - Controlled - Continue current medications - Counseled on healthy diet and regular exercise 3. Stage 3a chronic kidney disease (HCC) - ICD9: 585.3, ICD10: N18.31 resolved 4. Impaired fasting glucose - ICD9: 790.21, ICD10: R73.01 Discuss ADA guidelines for prediabetes management Wants to avoid medication 5. History of iron deficiency - ICD9: V12.3, ICD10: Z86.39 Anemia resolved 6. Spinal stenosis of lumbar region with neurogenic claudication - ICD9: 724.03, ICD10: M48.062 Stable, able to manage on current regimen. Marlon Mauricio PA-C documented in this encounter [facility] 03-24-2023 History of Present illness Narrative Radiology Service Progress Note PATIENT NAME: Libia Najera DATE OF SERVICE: March 24, 2023 TIME: 8:14 AM PATIENT IDENTITY VERIFICATION COMPLETED USING TWO (2) IDENTIFIERS: Name and Date of confirmed by patient verbally. FALL SCREENING: Has the patient had 2 falls in the last year or 1 fall with injury or currently using an Ambulatory Assistive Device (Walker, Cane, Wheelchair, Crutches, etc.)? No PATIENT GENDER DATA: Female. status: : No status: NO. PATIENT RELEVANT IMPLANT DATA REVIEWED: Not Applicable RADIOLOGY DEPARTMENT: Ultrasound PERIPHERAL IV DATA: Not applicable SIGNED BY: Leonie Baird RDMS March 24, 2023 8:14 AM documented in this encounter [facility] 03-17-2023 Miscellaneous Notes Patient notified. Let her know her chest xray is ok. documented in this encounter [facility] 02-14-2023 Miscellaneous Notes TAVIA 02/04/23 NOV 03/17/23 Patient has been identified by name and date of : Yes Requested Prescriptions Pending Prescriptions Disp Refills pravastatin (PRAVACHOL) 40 mg tablet 90 tablet 3 Sig: Take 1 tablet by mouth once daily. RX INSTRUCTIONS: Patient aware RX escripted to mail away pharmacy. No need to notify patient. Maddie Flaherty documented in this encounter [facility] 02-09-2023 Miscellaneous Notes Talked to patient and she verbally understands if it gets worse to let the office know. Reva Mc Xray shows arthritis. Call if symptoms worsen at all or if not better in one to two weeks Consider ortho if persists. documented in this encounter [facility] 02-05-2023 Miscellaneous Notes Left message for patient regarding medication. Notes indicates grand son called but no number given to call him back. Megan Hartman MA Let patient know scripts sent to [facility]. The following approved medication requests have been transmitted electronically. Requested Prescriptions Signed Prescriptions Disp Refills predniSONE (DELTASONE) 20 mg tablet 5 tablet 0 Sig: Take 1 tablet by mouth once daily for 5 days. Take daily with food. Authorizing Provider: BAM KERN metroNIDAZOLE (METROGEL) 0.75 % Topical Gel 45 g 0 Sig: Apply to affected area twice daily. Authorizing Provider: BAM KERN MD Patients grandcarmelita calling, states that the prescriptions that were sent to [facility] in [place] yesterday from PCP cannot be filled without a new prescription being sent to the [facility] in [place]. They attempted to have [facility] in [place] transfer this prescription but they state they need a new prescription sent electronically. Orders pended and pharmacy updated. Please advise. documented in this encounter [facility] 02-04-2023 History of Present illness Narrative Radiology Service Progress Note PATIENT NAME: Libia Najera DATE OF SERVICE: February 04, 2023 TIME: 10:00 AM PATIENT IDENTITY VERIFICATION COMPLETED USING TWO (2) IDENTIFIERS: Name and Date of confirmed by patient verbally. FALL SCREENING: Has the patient had 2 falls in the last year or 1 fall with injury or currently using an Ambulatory Assistive Device (Walker, Cane, Wheelchair, Crutches, etc.)? No PATIENT GENDER DATA: Female. status: : No status: NO. PATIENT RELEVANT IMPLANT DATA REVIEWED: Not Applicable RADIOLOGY DEPARTMENT: General X-ray: Exam(s) Completed: Lower Extremity X-Ray(s): Knee, AP / Lat / Tunne / Merchant Right and Wt. Bearing PERIPHERAL IV DATA: Not applicable SIGNED BY: RT Jose Elias(R) February 04, 2023 10:00 AM documented in this encounter [facility] 02-04-2023 History of Present illness Narrative Patient presents with: Knee Pain: right HPI: Patient presents today for office visit for follow up. Patient complains of: right knee pain Duration: 1 month Location: right knee Associated Symptoms: numbness legs and feet Aggravating factors:very active has a large yard to mow Things that improve symptoms :1 aleve in the morning and 2 tylenol at night Ice makes it ache more Does not feel like it is giving out. Not hot or red. No swelling. No injury. Would limit nsaids due to renal function. Bp and sugars are good. MEDICATIONS: Current Outpatient Medications Medication Sig omeprazole (PRILOSEC) 40 mg capsule Take 1 capsule by mouth once daily. lisinopril-hydroCHLOROthiazide (PRINZIDE,ZESTORETIC) 10-12.5 mg per tablet Take 1 tablet by mouth every morning. naproxen sodium (ANAPROX) 220 mg tablet Take 220 mg by mouth twice daily with meals. polyethylene glycol 3350 (MIRALAX ORAL) Take by mouth. pravastatin (PRAVACHOL) 40 mg tablet Take 1 tablet by mouth once daily. Blood Pressure Cuff - Home Use BLOOD PRESSURE CUFF FOR HOME USE. DX: LABILE BLOOD PRESSURE latanoprost (XALATAN) 0.005 % ophthalmic solution Use 1 Drop in both eyes daily at bedtime. TO AFFECTED EYE(S) Calcium Carbonate-Vitamin D2 600 mg calcium- 200 unit tab Take 1 tablet by mouth once daily. No current facility-administered medications for this visit. ALLERGIES: ALLERGIES No Known Allergies PAST MEDICAL HISTORY Diagnosis Date Arthritis Arthropathy, unspecified, site unspecified Backache, unspecified CKD (chronic kidney disease) stage 3, GFR 30-59 ml/min ([facility]) 07/31/2018 Diverticulosis of colon (without mention of hemorrhage) Essential hypertension, benign Female stress incontinence mild Melanoma ([facility]) 09/03/2020 Right anterior proximal upper arm Nonspecific abnormal electrocardiogram (ECG) (EKG) PAC Other and unspecified hyperlipidemia Reactive depression 07/31/2018 Symptomatic menopausal or female climacteric states PAST SURGICAL HISTORY Procedure Laterality Date ABDOMINAL SURGERY HX APPENDECTOMY APPENDECTOMY HX CHOLECSTOT/CHOLECSTOST W/EXPL DRG/RMVL ST1 SPX COLONOSCOPY FLX DX W/COLLJ SPEC WHEN PFRMD 2001 Colonoscopy COLONOSCOPY FLX DX W/COLLJ SPEC WHEN PFRMD 01/05/2012 Colonoscopy COLONOSCOPY FLX DX W/COLLJ SPEC WHEN PFRMD 01/13/2021 DILATION & CURETTAGE DX&/THER NONOBSTETRIC Dilation & curettage ESOPHAGOGASTRODUODENOSCOPY TRANSORAL DIAGNOSTIC 01/13/2021 EXC/DSTRJ LINGUAL TONSIL ANY METHOD SPX LIG/TRNSXJ FLP TUBE ABDL/VAG APPR UNI/BI Tubal ligation NEUROPLASTY &/TRANSPOS MEDIAN NRV CARPAL TUNNE 06/08/2011 Carpal tunnel decomp, right PAST SURGICAL HISTORY OF 2007 removal growth between toes =left PAST SURGICAL HISTORY OF Multple myeloma's [facility] N/CARPAL TUNNEL SURG 06/28/2013 left [facility] N/CARPAL TUNNEL SURG Left 01/29/2022 Left Carpal tunnel release with nerve wrap SALPINGO-OOPHORECTOMY COMPL/PRTL UNI/BI SPX 2003 Salpingo-oophorectomy SKIN BIOPSY HX TOTAL ABDOMINAL HYSTERECT W/WO RMVL TUBE OVARY 2003 Hysterectomy, ELLIOT VAGINAL HYSTERECTOMY FAMILY HISTORY Problem Relation Age of Onset Heart Mother Diabetes Mother Cancer Mother UTERUS Diabetes Father Heart Father Cancer Maternal Grandmother UTERUS Colon Cancer Daughter Social History Tobacco Use Smoking status: Never Smokeless tobacco: Never Vaping Use Vaping Use: Never used Substance Use Topics Alcohol use: No Drug use: No Reviewed current medications, allergies, past medical history, surgical history, family history and social history today. REVIEW OF SYSTEMS Has an itchy red rash on her face. Using neosporin. All other reviewed and negative other than HPI. VITALS: BP 109/71 Pulse (!) 55 Wt 86.6 kg (191 lb) SpO2 97% BMI 30.83 kg/m Last 4 Encounter Wt Readings: Date: Wt: 09/10/2022 88.8 kg (195 lb 12.8 oz) 04/21/2022 86.5 kg (190 lb 9.6 oz) 02/18/2022 85.7 kg (189 lb) 02/12/2022 86.2 kg (190 lb) PHYSICAL EXAMINATION: General appearance: Well appearing, alert, in no acute distress, well-hydrated, well nourished. Skin: does have some rosacea on face Extremities: no edema. Normal range of motion of right knee. Some tenderness with compression of patella. No instability. Negative Chinmay's. Negative drawer. No effusion or redness or warmth. Pain is more lateral side of the knee per patient. ASSESSMENT/PLAN: 1. Acute pain of right knee - ICD9: 719.46, ICD10: M25.561 (primary diagnosis) - Discussed risks and benefits of new medication with the patient. Advised them to call if any side effects or questions. Red flags for re-assessment reviewed with patient in detail. Call if symptoms worsen at all or if not better in one to two weeks Reviewed diagnosis and treatment options in detail. Questions were answered. Patient expressed understanding of treatment plan. - consider therapy if continues. - PREDNISONE 20 MG TABLET - XR KNEE GENERAL 4V AP BOTH/PA BOTH/LAT/MERC RIGHT 2. Rosacea - ICD9: 695.3, ICD10: L71.9 - Discussed risks and benefits of new medication with the patient. Advised them to call if any side effects or questions. Keep next appt for recheck - METRONIDAZOLE 0.75 % TOPICAL GEL Brauloi Whitney MD Medical Decision Making: Problems: Moderate: New problem with uncertain prognosis Data: Unique test(s) ordered: 1 Risk: Moderate: Drug management Medical Decision Making Level: 4 - Moderate documented in this encounter [facility] 02-03-2023 History of Present illness Narrative POPULATION HEALTH NAVIGATION OUTREACH Action/FYI February 03, 2023 10:55 AM Spoke with patient. She has been scheduled with Braulio Whitney MD on February 04, 2023 Thank you Patient Identified by Name and : YES, via phone Outreach Outcome/Action Spoke to patient / parent / legal guardian: Patient scheduled Did you use a PCP flex slot to schedule this appointment? No Reason for Outreach [facility] Payer: Payor: [employer] MEDICARE / Plan: [employer] MEDICARE PPO / Product Type: PPO / Care Gap Reviewed:: Follow-up appointment Reminder: Reminder note to check Health Maintenance for items below Health Maintenance items due: COVID-19 VACCINE(6 - Pfizer series) due on 08/21/2022 Navigation Signature: Maria Alejandra Brizuela MA February 03, 2023 10:55 AM CDM Telephonic Outreach Provider Action/ Navigator, Please schedule pt appt with PCP for persistent ,worsening right knee pain. Now needing cane to ambulate. Pt cannot wait until Sept appt d/t pain. Thank you Contacted for: Routine Telephonic Outreach Contact made with patient: Yes Patient identified by name and date of . Discussed care with patient Are you experiencing any new or worsening symptoms you need to talk about today?Yes Persistent , worsening right knee pain. Now needing to use can d/t pain and previously did not need any assistive device Disease Specific Do you check your blood pressure at home? No Do you have new or worsening shortness of breath with activity? No Do you feel like you are dehydrated for any reason, including not being able to eat or drink normally, or having less urine/much darker urine than normal for you? No Do you check your daily weight at home? No Based on geopolitics teacher, the following disposition is advised: No symptoms or symptoms present, not severe. Routed to: Navigation Team: PCP visit within 7 days [facility] Education Provided this Outreach: No Sosa Bernstein RN February 03, 2023 10:26 AM Care Coordination next call- Last CDM outreach contact: 02/03 - No CDM concerns, Persistent worsening right knee pain; now needing cane to ambulate, routed to [place] team Baseline: 12/09/22 ADL, FALL, GOAL due: 02/04/24. Chronic disease goal - 12/09/22 -ckd SDOH transportation and food insecurity completed: 12/09/22 documented in this encounter [facility] 01-05-2023 History of Present illness Narrative CD Telephonic Outreach Provider Action/FYI Contacted for: Routine Telephonic Outreach Contact made with patient: Yes Patient identified by name and date of . Discussed care with patient Are you experiencing any new or worsening symptoms you need to talk about today? No Disease Specific Do you check your blood pressure at home? Yes, Enter readings: 128/69 Do you have new or worsening shortness of breath with activity? No Do you feel like you are dehydrated for any reason, including not being able to eat or drink normally, or having less urine/much darker urine than normal for you? No Do you check your daily weight at home? Yes, Have you noticed a sudden gain in weight greater than three pounds in a day or three pounds in a week? No Based on geopolitics teacher, the following disposition is advised: No symptoms or symptoms present, not severe. Routed to: No Action Needed [facility]HAN[facility] Education Provided this Outreach: No Sosa Bernstein RN January 05, 2023 4:02 PM Care Coordination next call- Last CDM outreach contact: 01/05 - No concerns Baseline: 12/09/22 ADL, FALL, GOAL due: 12/31/22 . Chronic disease goal - 12/09/22 -ckd SDOH transportation and food insecurity completed: 12/09/22 documented in this encounter [facility] 10-11-2022 Miscellaneous Notes Patient has been identified by name and date of : Yes Requested Prescriptions Pending Prescriptions Disp Refills omeprazole (PRILOSEC) 40 mg capsule 90 capsule 3 Sig: Take 1 capsule by mouth once daily. RX INSTRUCTIONS: Patient aware RX will be sent to pharmacy. No need to notify patient. Patient last office visit: 09/10/22 Patient next office visit: 03/17/23 Beverly Castillo MA Patient has been identified by name and date of : Yes Requested Prescriptions Pending Prescriptions Disp Refills omeprazole (PRILOSEC) 40 mg capsule 90 capsule 3 Sig: Take 1 capsule by mouth once daily. RX INSTRUCTIONS: Patient aware RX will be sent to pharmacy. No need to notify patient. Renu Velez documented in this encounter [facility] 09-10-2022 History of Past i llness Narrative Problem Noted Date Diagnosed Date Resolved Date Malignant hypertension 09/10/202203/17 Strain of trapezius muscle 04/21/2022 0 03/17/2023 Skin cancer 10/19/2021 10/19/2021 Overview: Sees Dr. Loco. Unsure of type. Iron deficiency 05/18/2021 03/17/2023 Non-cardiac chest pain 04/29/202010/31 Reactive depression 07/31/2018 01/06/20 19 Impingement syndrome of left shoulder 08/11/2015 07/31/2018 Essential hypertension, benign 04/22/2011 01/05/2019 Grief reaction 01/19/2011 02/09/2018 GORDO-inhibitor cough 07/27/2010 04/22/20 11 Hip pain 08/11/2009 07/31/2018 Unspecified essential hypertension 07/01/2008 04/22/2011 Mastalgia 03/15/2008 10/31/2020 Symptomatic menopausal or fe male climacteric states 09/26/2007 04/22/2011 Urgency of urination 09/26/2007 010 Routine general medical exam ination at a health care facility 02/07/2007 04/22/2011 PAIN FOOT 11/25/2006 08/11/2009 Myalgia and myositis, unspecified 03/17/2001 04/22/2011 Backache, unspecified 2018 Nonspecific abnormal electro cardiogram (ECG) (EKG) 10/31/2020 Overview: PAC documented as of this encounter (statuses as of 03/18/2023) [facility] History of Past illness Narrative* Problem Noted Date Diagnosed Date Resolved Date Malignant hypertension 09/10/202203/17 Strain of trapezius muscle 04/21/2022 0 03/17/2023 Skin cancer 10/19/2021 10/19/2021 Overview: Sees Dr. Loco. Unsure of type. Iron deficiency 05/18/2021 03/17/2023 Non-cardiac chest pain 04/29/202010/31 Reactive depression 07/31/2018 01/06/20 19 Impingement syndrome of left shoulder 08/11/2015 07/31/2018 Essential hypertension, benign 04/22/2011 01/05/2019 Grief reaction 01/19/2011 02/09/2018 GORDO-inhibitor cough 07/27/2010 04/22/20 11 Hip pain 08/11/2009 07/31/2018 Unspecified essential hypertension 07/01/2008 04/22/2011 Mastalgia 03/15/2008 10/31/2020 Symptomatic menopausal or fe male climacteric states 09/26/2007 04/22/2011 Urgency of urination 09/26/2007 010 Routine general medical exam ination at a health care facility 02/07/2007 04/22/2011 PAIN FOOT 11/25/2006 08/11/2009 Myalgia and myositis, unspecified 03/17/2001 04/22/2011 Backache, unspecified 2018 Nonspecific abnormal electro cardiogram (ECG) (EKG) 10/31/2020 Overview: PAC documented as of this encounter (statuses as of 03/31/2023) [facility] History of Past illness Narrative* Problem Noted Date Diagnosed Date Resolved Date Malignant hypertension 09/10/202203/17 Strain of trapezius muscle 04/21/2022 0 03/17/2023 Skin cancer 10/19/2021 10/19/2021 Overview: Sees Dr. Loco. Unsure of type. Iron deficiency 05/18/2021 03/17/2023 Non-cardiac chest pain 04/29/202010/31 Reactive depression 07/31/2018 01/06/20 Impingement syndrome of left shoulder 08/11/2015 07/31/2018 Essential hypertension, benign 04/22/2011 01/05/2019 Grief reaction 01/19/2011 02/09/2018 GORDO-inhibitor cough 07/27/2010 04/22/20 11 Hip pain 08/11/2009 07/31/2018 Unspecified essential hypertension 07/01/2008 04/22/2011 Mastalgia 03/15/2008 10/31/2020 Symptomatic menopausal or fe male climacteric states 09/26/2007 04/22/2011 Urgency of urination 09/26/2007 010 Routine general medical exam ination at a health care facility 02/07/2007 04/22/2011 PAIN FOOT 11/25/2006 08/11/2009 Myalgia and myositis, unspecified 03/17/2001 04/22/2011 Backache, unspecified 2018 Nonspecific abnormal electro cardiogram (ECG) (EKG) 10/31/2020 Overview: PAC documented as of this encounter (statuses as of 04/01/2023) [facility] History of Past illness Narrative* Problem Noted Date Diagnosed Date Resolved Date Malignant hypertension 09/10/202203/17 Strain of trapezius muscle 04/21/2022 0 03/17/2023 Skin cancer 10/19/2021 10/19/2021 Overview: Sees Dr. Loco. Unsure of type. Iron deficiency 05/18/2021 03/17/2023 Non-cardiac chest pain 04/29/202010/31 Reactive depression 07/31/2018 01/06/20 19 Impingement syndrome of left shoulder 08/11/2015 07/31/2018 Essential hypertension, benign 04/22/2011 01/05/2019 Grief reaction 01/19/2011 02/09/2018 GORDO-inhibitor cough 07/27/2010 04/22/20 11 Hip pain 08/11/2009 07/31/2018 Unspecified essential hypertension 07/01/2008 04/22/2011 Mastalgia 03/15/2008 10/31/2020 Symptomatic menopausal or fe male climacteric states 09/26/2007 04/22/2011 Urgency of urination 09/26/2007 010 Routine general medical exam ination at a health care facility 02/07/2007 04/22/2011 PAIN FOOT 11/25/2006 08/11/2009 Myalgia and myositis, unspecified 03/17/2001 04/22/2011 Backache, unspecified 2018 Nonspecific abnormal electro cardiogram (ECG) (EKG) 10/31/2020 Overview: PAC documented as of this encounter (statuses as of 04/24/2023) [facility] History of Past illness Narrative* Problem Noted Date Diagnosed Date Resolved Date Malignant hypertension 09/10/202203/17 Strain of trapezius muscle 04/21/2022 0 03/17/2023 Skin cancer 10/19/2021 10/19/2021 Overview: Sees Dr. Loco. Unsure of type. Iron deficiency 05/18/2021 03/17/2023 Non-cardiac chest pain 04/29/202010/31 Reactive depression 07/31/2018 01/06/20 19 Impingement syndrome of left shoulder 08/11/2015 07/31/2018 Essential hypertension, benign 04/22/2011 01/05/2019 Grief reaction 01/19/2011 02/09/2018 GORDO-inhibitor cough 07/27/2010 04/22/20 11 Hip pain 08/11/2009 07/31/2018 Unspecified essential hypertension 07/01/2008 04/22/2011 Mastalgia 03/15/2008 10/31/2020 Symptomatic menopausal or fe male climacteric states 09/26/2007 04/22/2011 Urgency of urination 09/26/2007 010 Routine general medical exam ination at a health care facility 02/07/2007 04/22/2011 PAIN FOOT 11/25/2006 08/11/2009 Myalgia and myositis, unspecified 03/17/2001 04/22/2011 Backache, unspecified 2018 Nonspecific abnormal electro cardiogram (ECG) (EKG) 10/31/2020 Overview: PAC documented as of this encounter (statuses as of 04/28/2023) [facility] History of Past illness Narrative* Problem Noted Date Diagnosed Date Resolved Date Malignant hypertension 09/10/202203/17 Strain of trapezius muscle 04/21/2022 0 03/17/2023 Skin cancer 10/19/2021 10/19/2021 Overview: Sees Dr. Loco. Unsure of type. Iron deficiency 05/18/2021 03/17/2023 Non-cardiac chest pain 04/29/202010/31 Reactive depression 07/31/2018 01/06/20 19 Impingement syndrome of left shoulder 08/11/2015 07/31/2018 Essential hypertension, benign 04/22/2011 01/05/2019 Grief reaction 01/19/2011 02/09/2018 GORDO-inhibitor cough 07/27/2010 04/22/20 11 Hip pain 08/11/2009 07/31/2018 Unspecified essential hypertension 07/01/2008 04/22/2011 Mastalgia 03/15/2008 10/31/2020 Symptomatic menopausal or fe male climacteric states 09/26/2007 04/22/2011 Urgency of urination 09/26/2007 010 Routine general medical exam ination at a health care facility 02/07/2007 04/22/2011 PAIN FOOT 11/25/2006 08/11/2009 Myalgia and myositis, unspecified 03/17/2001 04/22/2011 Backache, unspecified 2018 Nonspecific abnormal electro cardiogram (ECG) (EKG) 10/31/2020 Overview: PAC documented as of this encounter (statuses as of 05/18/2023) [facility] History of Past illness Narrative* Problem Noted Date Diagnosed Date Resolved Date Malignant hypertension 09/10/202203/17 Strain of trapezius muscle 04/21/2022 0 03/17/2023 Skin cancer 10/19/2021 10/19/2021 Overview: Sees Dr. Loco. Unsure of type. Iron deficiency 05/18/2021 03/17/2023 Non-cardiac chest pain 04/29/202010/31 Reactive depression 07/31/2018 01/06/20 19 Impingement syndrome of left shoulder 08/11/2015 07/31/2018 Essential hypertension, benign 04/22/2011 01/05/2019 Grief reaction 01/19/2011 02/09/2018 GORDO-inhibitor cough 07/27/2010 04/22/20 11 Hip pain 08/11/2009 07/31/2018 Unspecified essential hypertension 07/01/2008 04/22/2011 Mastalgia 03/15/2008 10/31/2020 Symptomatic menopausal or fe male climacteric states 09/26/2007 04/22/2011 Urgency of urination 09/26/2007 010 Routine general medical exam ination at a health care facility 02/07/2007 04/22/2011 PAIN FOOT 11/25/2006 08/11/2009 Myalgia and myositis, unspecified 03/17/2001 04/22/2011 Backache, unspecified 2018 Nonspecific abnormal electro cardiogram (ECG) (EKG) 10/31/2020 Overview: PAC documented as of this encounter (statuses as of 05/26/2023) [facility] History of Past illness Narrative* Problem Noted Date Diagnosed Date Resolved Date Malignant hypertension 09/10/202203/17 Strain of trapezius muscle 04/21/2022 0 03/17/2023 Skin cancer 10/19/2021 10/19/2021 Overview: Sees Dr. Loco. Unsure of type. Iron deficiency 05/18/2021 03/17/2023 Non-cardiac chest pain 04/29/202010/31 Reactive depression 07/31/2018 01/06/20 19 Impingement syndrome of left shoulder 08/11/2015 07/31/2018 Essential hypertension, benign 04/22/2011 01/05/2019 Grief reaction 01/19/2011 02/09/2018 GORDO-inhibitor cough 07/27/2010 04/22/20 11 Hip pain 08/11/2009 07/31/2018 Unspecified essential hypertension 07/01/2008 04/22/2011 Mastalgia 03/15/2008 10/31/2020 Symptomatic menopausal or fe male climacteric states 09/26/2007 04/22/2011 Urgency of urination 09/26/2007 010 Routine general medical exam ination at a health care facility 02/07/2007 04/22/2011 PAIN FOOT 11/25/2006 08/11/2009 Myalgia and myositis, unspecified 03/17/2001 04/22/2011 Backache, unspecified 2018 Nonspecific abnormal electro cardiogram (ECG) (EKG) 10/31/2020 Overview: PAC documented as of this encounter (statuses as of 07/21/2023) [facility] History of Past illness Narrative* Problem Noted Date Diagnosed Date Resolved Date Malignant hypertension 09/10/202203/17 Strain of trapezius muscle 04/21/2022 0 03/17/2023 Skin cancer 10/19/2021 10/19/2021 Overview: Sees Dr. Loco. Unsure of type. Iron deficiency 05/18/2021 03/17/2023 Non-cardiac chest pain 04/29/202010/31 Reactive depression 07/31/2018 01/06/20 19 Impingement syndrome of left shoulder 08/11/2015 07/31/2018 Essential hypertension, benign 04/22/2011 01/05/2019 Grief reaction 01/19/2011 02/09/2018 GORDO-inhibitor cough 07/27/2010 04/22/20 11 Hip pain 08/11/2009 07/31/2018 Unspecified essential hypertension 07/01/2008 04/22/2011 Mastalgia 03/15/2008 10/31/2020 Symptomatic menopausal or fe male climacteric states 09/26/2007 04/22/2011 Urgency of urination 09/26/2007 010 Routine general medical exam ination at a health care facility 02/07/2007 04/22/2011 PAIN FOOT 11/25/2006 08/11/2009 Myalgia and myositis, unspecified 03/17/2001 04/22/2011 Backache, unspecified 2018 Nonspecific abnormal electro cardiogram (ECG) (EKG) 10/31/2020 Overview: PAC documented as of this encounter (statuses as of 08/18/2023) [facility] History of Past illness Narrative* Problem Noted Date Diagnosed Date Resolved Date Malignant hypertension 09/10/202203/17 Strain of trapezius muscle 04/21/2022 0 03/17/2023 Skin cancer 10/19/2021 10/19/2021 Overview: Sees Dr. Loco. Unsure of type. Iron deficiency 05/18/2021 03/17/2023 Non-cardiac chest pain 04/29/202010/31 Reactive depression 07/31/2018 01/06/20 19 Impingement syndrome of left shoulder 08/11/2015 07/31/2018 Essential hypertension, benign 04/22/2011 01/05/2019 Grief reaction 01/19/2011 02/09/2018 GORDO-inhibitor cough 07/27/2010 04/22/20 11 Hip pain 08/11/2009 07/31/2018 Unspecified essential hypertension 07/01/2008 04/22/2011 Mastalgia 03/15/2008 10/31/2020 Symptomatic menopausal or fe male climacteric states 09/26/2007 04/22/2011 Urgency of urination 09/26/2007 010 Routine general medical exam ination at a health care facility 02/07/2007 04/22/2011 PAIN FOOT 11/25/2006 08/11/2009 Myalgia and myositis, unspecified 03/17/2001 04/22/2011 Backache, unspecified 2018 Nonspecific abnormal electro cardiogram (ECG) (EKG) 10/31/2020 Overview: PAC documented as of this encounter (statuses as of 08/25/2023) [facility] History of Past illness Narrative* Problem Noted Date Diagnosed Date Resolved Date Malignant hypertension 09/10/202203/17 Strain of trapezius muscle 04/21/2022 0 03/17/2023 Skin cancer 10/19/2021 10/19/2021 Overview: Sees Dr. Loco. Unsure of type. Iron deficiency 05/18/2021 03/17/2023 Non-cardiac chest pain 04/29/202010/31 Reactive depression 07/31/2018 01/06/20 19 Impingement syndrome of left shoulder 08/11/2015 07/31/2018 Essential hypertension, benign 04/22/2011 01/05/2019 Grief reaction 01/19/2011 02/09/2018 GORDO-inhibitor cough 07/27/2010 04/22/20 11 Hip pain 08/11/2009 07/31/2018 Unspecified essential hypertension 07/01/2008 04/22/2011 Mastalgia 03/15/2008 10/31/2020 Symptomatic menopausal or fe male climacteric states 09/26/2007 04/22/2011 Urgency of urination 09/26/2007 010 Routine general medical exam ination at a health care facility 02/07/2007 04/22/2011 PAIN FOOT 11/25/2006 08/11/2009 Myalgia and myositis, unspecified 03/17/2001 04/22/2011 Backache, unspecified 2018 Nonspecific abnormal electro cardiogram (ECG) (EKG) 10/31/2020 Overview: PAC documented as of this encounter (statuses as of 08/25/2023) [facility] History of Past illness Narrative* Problem Noted Date Diagnosed Date Resolved Date Malignant hypertension 09/10/202203/17 Strain of trapezius muscle 04/21/2022 0 03/17/2023 Skin cancer 10/19/2021 10/19/2021 Overview: Sees Dr. Loco. Unsure of type. Iron deficiency 05/18/2021 03/17/2023 Non-cardiac chest pain 04/29/202010/31 Reactive depression 07/31/2018 01/06/20 19 Impingement syndrome of left shoulder 08/11/2015 07/31/2018 Essential hypertension, benign 04/22/2011 01/05/2019 Grief reaction 01/19/2011 02/09/2018 GORDO-inhibitor cough 07/27/2010 04/22/20 11 Hip pain 08/11/2009 07/31/2018 Unspecified essential hypertension 07/01/2008 04/22/2011 Mastalgia 03/15/2008 10/31/2020 Symptomatic menopausal or fe male climacteric states 09/26/2007 04/22/2011 Urgency of urination 09/26/2007 010 Routine general medical exam ination at a health care facility 02/07/2007 04/22/2011 PAIN FOOT 11/25/2006 08/11/2009 Myalgia and myositis, unspecified 03/17/2001 04/22/2011 Backache, unspecified 2018 Nonspecific abnormal electro cardiogram (ECG) (EKG) 10/31/2020 Overview: PAC documented as of this encounter (statuses as of 09/30/2023) [facility] History of Past illness Narrative* Problem Noted Date Diagnosed Date Resolved Date Malignant hypertension 09/10/202203/17 Strain of trapezius muscle 04/21/2022 0 03/17/2023 Skin cancer 10/19/2021 10/19/2021 Overview: Sees Dr. Loco. Unsure of type. Iron deficiency 05/18/2021 03/17/2023 Non-cardiac chest pain 04/29/202010/31 Reactive depression 07/31/2018 01/06/20 19 Impingement syndrome of left shoulder 08/11/2015 07/31/2018 Essential hypertension, benign 04/22/2011 01/05/2019 Grief reaction 01/19/2011 02/09/2018 GORDO-inhibitor cough 07/27/2010 04/22/20 11 Hip pain 08/11/2009 07/31/2018 Unspecified essential hypertension 07/01/2008 04/22/2011 Mastalgia 03/15/2008 10/31/2020 Symptomatic menopausal or fe male climacteric states 09/26/2007 04/22/2011 Urgency of urination 09/26/2007 010 Routine general medical exam ination at a health care facility 02/07/2007 04/22/2011 PAIN FOOT 11/25/2006 08/11/2009 Myalgia and myositis, unspecified 03/17/2001 04/22/2011 Backache, unspecified 2018 Nonspecific abnormal electro cardiogram (ECG) (EKG) 10/31/2020 Overview: PAC documented as of this encounter (statuses as of 10/03/2023) [facility] History of Present illness Narrative* Braulio Whitney MD - 09/10/2022 8:50 AM EDT Patient presents with: ER F/U HPI: Patient presents today for office visit for ER follow up from [facility] on 08/26/22 due to left arm pain and just not feeling right. When she took her BP at home states it was elevated. Chest X-ray normal. EKG performed. Given Methocarbamol and discharged. Not currently taking any longer. Overall feeling better. States her arm is still sore to the touch. Only taking Tylenol OTC. Bp was mildly up in ER on review of records. Labs only revealed mild decrease in potassium. Had painted the porch wall. Is left handed. She believes that may have agitated the arm. No neck or elbow or wrist pain. No new chest pain or shortness of breath. She feels her pain in her biceps area if mild enough that she declines xray. Has a ganglion cyst on her left ring finger. Red flags for re-assessment reviewed with patient in detail. MEDICATIONS: Current Outpatient Medications Medication Sig lisinopril-hydroCHLOROthiazide (PRINZIDE,ZESTORETIC) 10-12.5 mg per tablet Take 1 tablet by mouth every morning. naproxen sodium (ANAPROX) 220 mg tablet Take 220 mg by mouth twice daily with meals. polyethylene glycol 3350 (MIRALAX ORAL) Take by mouth. pravastatin (PRAVACHOL) 40 mg tablet Take 1 tablet by mouth once daily. omeprazole (PRILOSEC) 40 mg capsule Take 1 capsule by mouth once daily. Blood Pressure Cuff - Home Use BLOOD PRESSURE CUFF FOR HOME USE. DX: LABILE BLOOD PRESSURE latanoprost (XALATAN) 0.005 % ophthalmic solution Use 1 Drop in both eyes daily at bedtime. TO AFFECTED EYE(S) Calcium Carbonate-Vitamin D2 600 mg calcium- 200 unit tab Take 1 tablet by mouth once daily. No current facility-administered medications for this visit. ALLERGIES: ALLERGIES No Known Allergies PAST MEDICAL HISTORY Diagnosis Date Arthritis Arthropathy, unspecified, site unspecified Backache, unspecified CKD (chronic kidney disease) stage 3, GFR 30-59 ml/min ([facility]) 07/31/2018 Diverticulosis of colon (without mention of hemorrhage) Essential hypertension, benign Female stress incontinence mild Melanoma ([facility]) 09/03/2020 Right anterior proximal upper arm Nonspecific abnormal electrocardiogram (ECG) (EKG) PAC Other and unspecified hyperlipidemia Reactive depression 07/31/2018 Symptomatic menopausal or female climacteric states PAST SURGICAL HISTORY Procedure Laterality Date ABDOMINAL SURGERY HX APPENDECTOMY APPENDECTOMY HX CHOLECSTOT/CHOLECSTOST W/EXPL DRG/RMVL ST1 SPX COLONOSCOPY FLX DX W/COLLJ SPEC WHEN PFRMD 2001 Colonoscopy COLONOSCOPY FLX DX W/COLLJ SPEC WHEN PFRMD 01/05/2012 Colonoscopy COLONOSCOPY FLX DX W/COLLJ SPEC WHEN PFRMD 01/13/2021 DILATION & CURETTAGE DX&/THER NONOBSTETRIC Dilation & curettage ESOPHAGOGASTRODUODENOSCOPY TRANSORAL DIAGNOSTIC 01/13/2021 EXC/DSTRJ LINGUAL TONSIL ANY METHOD SPX LIG/TRNSXJ FLP TUBE ABDL/VAG APPR UNI/BI Tubal ligation NEUROPLASTY &/TRANSPOS MEDIAN NRV CARPAL TUNNE 06/08/2011 Carpal tunnel decomp, right PAST SURGICAL HISTORY OF 2007 removal growth between toes =left PAST SURGICAL HISTORY OF Multple myeloma's REVISE MEDIAN N/CARPAL TUNNEL SURG 06/28/2013 left CTR REVISE MEDIAN N/CARPAL TUNNEL SURG Left 01/29/2022 Left Carpal tunnel release with nerve wrap SALPINGO-OOPHORECTOMY COMPL/PRTL UNI/BI SPX 2002 Salpingo-oophorectomy SKIN BIOPSY HX TOTAL ABDOMINAL HYSTERECT W/WO RMVL TUBE OVARY 2003 Hysterectomy, ELLIOT VAGINAL HYSTERECTOMY FAMILY HISTORY Problem Relation Age of Onset Heart Mother Diabetes Mother Cancer Mother UTERUS Diabetes Father Heart Father Cancer Maternal Grandmother UTERUS Colon Cancer Daughter Social History Tobacco Use Smoking status: Never Smokeless tobacco: Never Vaping Use Vaping Use: Never used Substance Use Topics Alcohol use: No Drug use: No Reviewed current medications, allergies, past medical history, surgical history, family history andsocial history today. REVIEW OF SYSTEMS All other reviewed and negative other than HPI. HEALTH MAINTENANCE: Reviewed health maintenance issues today and recommended the following in detail. ADVANCE DIRECTIVE DISCUSSION - on file. DEPRESSION ASSESSMENT due on 06/20/2022 VITALS: BP 118/62 Pulse 66 Ht 167.6 cm (5' 6) Wt 88.8 kg (195 lb 12.8 oz) SpO2 97% BMI 31.60 kg/m Last 4 Encounter Wt Readings: Date: Wt: 04/21/2022 86.5 kg (190 lb 9.6 oz) 02/18/2022 85.7 kg (189 lb) 02/12/2022 86.2 kg (190 lb) 01/27/2022 85.3 kg (188 lb) PHYSICAL EXAMINATION: General appearance: Well appearing, alert, in no acute distress, well-hydrated, well nourished. Skin: Skin color, texture, turgor normal, no suspicious rashes or lesions Head: Normocephalic, no masses, lesions, tenderness or abnormalities Neck: Supple, no adenopathy; thyroid symmetric, normal size, no bruits Lungs: Lungs clear to auscultation. No wheezing, rhonchi, rales Heart: RRR without murmur, gallop, or rubs. No ectopy Abdomen: Normal abdominal exam, Abdomen soft, non-tender. Bowel sounds normal. No masses, organomegaly Extremities: No deformities, edema, skin discoloration, clubbing or cyanosis. Good capillary refill. , lipoma on her left shoulder unchanged. Minimally tender over the biceps Musculoskeletal: No joint swelling, deformity, or tenderness Peripheral pulses: Normal ASSESSMENT/PLAN: 1. Left arm pain - ICD9: 729.5, ICD10: M79.602 (primary diagnosis) - check labs. Call if symptoms worsen at all or if not better in one to two weeks - POTASSIUM BLD 2. Hypokalemia - ICD9: 276.8, ICD10: E87.6 - POTASSIUM BLD 3. Essential hypertension, benign - ICD9: 401.1, ICD10: I10 - good control - Continue current medication(s) - Goal of BP <130/80 4. Hyperlipidemia with target LDL less than 130 - ICD9: 272.4, ICD10: E78.5 - good control Braulio Whitney MD documented in this encounterWilson [facility] History of Present illness Narrative* Maria Alejandra Brizuela MA - 09/07/2022 4:47 PM EDT POPULATION HEALTH NAVIGATION OUTREACH Action/I September 07, 2022 Attempted to reach patient to assist with scheduling her ED follow up appointment. Left message on voicemail for her to return call for scheduling assistance. Thank you. Patient Identified by Name and : NO Outreach Outcome/Action Unable to reach patient: Left message Did you use a PCP flex slot to schedule this appointment? N/A Reason for Outreach Community Monitoring Pool Payer: Payor: [employer] MEDICARE / Plan: [employer] MEDICARE PPO / Product Type: PPO / Care Gap Reviewed:: Follow-up appointment Reminder: Reminder note to check Health Maintenance for items below Health Maintenance items due: ADVANCE DIRECTIVE DISCUSSION due on 06/20/2022 DEPRESSION ASSESSMENT due on 06/20/2022 Navigation Signature: Maria Alejandra Brizuela MA September 07, 2022 4:47 PM * Cece Brewer RN - 09/07/2022 3:32 PM EDT INSIGHT CDM TELEPHONIC OUTREACH Provider Action/FYI: Patient reports she was at [facility] Emergency Department last week 09/02/22 for pain in L arm and vomiting. Was prescribed methocarbamol PRN. Community Monitoring PSS Pool: Please assist patient with scheduling an appointment with Braulio J Devonte, MD or ENROLLMENT ELIGIBILITY REPRESENTATIVE / PA within 3 days for Emergency Department follow up (please do NOT cancel the appointment on 10/20/22). Thank you Appointments for Next 60 Days Date Time Provider Location Dept Phone 10/20/2022 8:40 AM BRAULIO WHITNEY [facility] [phone] Contact made with patient: Yes Patient identified by name and . Discussed care with patient It s nice talking to you again. As a reminder, this is our bi-weekly check-in where I will be asking you questions about your health. This will only take a few minutes of your time. Is this a good time? Yes Symptoms What Chronic Disease(s) does the patient have: CKD Do you check your blood pressures at home? No Do you have new or worse shortness of breath with activity? No Do you feel like you are dehydrated for any reason, including not being able to eat or drink normally, or having less urine/much darker urine than normal for you? No Do you check your daily weight at home? No Are you having any other symptoms that your PCP needs to know about? No Symptoms: Symptom Escalation ZHANNA Education Ordered -: No The patient required an escalation for symptom(s)? No Medications Do you have any questions about taking your medication or which medications you should be on? No Do you need any medication refills at this time, including any of the medications you might take only when needed? No Social We would like to make sure you have what you need so that your basic needs are met- including your personal safety, food, housing, transportation and medications? Would you like to speak with a social work steam hoist operator to help give you support for any of these needs? No It can be normal to feel anxious or down during a time like this. Would you like to talk to a mental health professional about how you have been feeling? No Closing Thank you for taking the time to talk with me today. We want to work with you to ensure that we arekeeping your medical condition(s) well-controlled and to keep you healthy and out of the doctor's office or hospital. It s also not too late for me to sign you up for automated weekly questionnaires through [employer]. This is an easy way for us to stay connected each week. Are you interested? No, I understand. We can always sign you up in the future if you change your mind. Just as a reminder, will continue to call you every other week to check in on your health. Our calls should take 10-15 minutes or less. Remember, if you have concerns in between our calls, please call your PCP's office right away. Thank you. Enter next patient outreach date for two weeks on the same day of the week as today in the Track PtOutreach and End outreach. documented in this encounterWilson [facility]02-14-[facility]23 History of Present illness Narrative* Cece Brewer RN - 08/03/2022 3:26 PM EST INSIGHT CDM TELEPHONIC OUTREACH Provider Action/FYI: Patient reports no concerns or questions today. Received Healthy at Home Nurse Line [phone] letter recently. Contact made with patient: Yes Patient identified by name and . Discussed care with patient It s nice talking to you again. As a reminder, this is our bi-weekly check-in where I will be asking you questions about your health. This will only take a few minutes of your time. Is this a good time? Yes Symptoms What Chronic Disease(s) does the patient have: CKD Do you check your blood pressures at home? No Do you have new or worse shortness of breath with activity? No Do you feel like you are dehydrated for any reason, including not being able to eat or drink normally, or having less urine/much darker urine than normal for you? No Do you check your daily weight at home? No Are you having any other symptoms that your PCP needs to know about? No Symptoms: Symptom Escalation ZHANNA Education Ordered -: No The patient required an escalation for symptom(s)? No Medications Do you have any questions about taking your medication or which medications you should be on? No Do you need any medication refills at this time, including any of the medications you might take only when needed? No Social We would like to make sure you have what you need so that your basic needs are met- including your personal safety, food, housing, transportation and medications? Would you like to speak with a social work steam hoist operator to help give you support for any of these needs? No It can be normal to feel anxious or down during a time like this. Would you like to talk to a mental health professional about how you have been feeling? No Closing Thank you for taking the time to talk with me today. We want to work with you to ensure that we arekeeping your medical condition(s) well-controlled and to keep you healthy and out of the doctor's office or hospital. It s also not too late for me to sign you up for automated weekly questionnaires through [employer]. This is an easy way for us to stay connected each week. Are you interested? No, I understand. We can always sign you up in the future if you change your mind. Just as a reminder, will continue to call you every other week to check in on your health. Our calls should take 10-15 minutes or less. Remember, if you have concerns in between our calls, please call your PCP's office right away. Thank you. Enter next patient outreach date for two weeks on the same day of the week as today in the Track PtOutreach and End outreach. documented in this encounterWilson [facility] Hospital12-21-2022 History of Present illness Narrative* Cece Brewer RN - 06/09/2022 4:19 PM EST INSIGHT CDM TELEPHONIC OUTREACH Provider Action/FYI: Patient reports treating toenail with OTC antifungal. No concerns or questions today.] Contact made with patient: Yes Patient identified by name and . Discussed care with patient It s nice talking to you again. As a reminder, this is our bi-weekly check-in where I will be asking you questions about your health. This will only take a few minutes of your time. Is this a good time? Yes Symptoms What Chronic Disease(s) does the patient have: CKD Do you check your blood pressures at home? No Do you have new or worse shortness of breath with activity? No Do you feel like you are dehydrated for any reason, including not being able to eat or drink normally, or having less urine/much darker urine than normal for you? No Do you check your daily weight at home? No Are you having any other symptoms that your PCP needs to know about? No Symptom Escalation The patient required an escalation for symptom(s)? No Medications Do you have any questions about taking your medication or which medications you should be on? No Do you need any medication refills at this time, including any of the medications you might take only when needed? No Social We would like to make sure you have what you need so that your basic needs are met- including your personal safety, food, housing and medications? Would you like to speak with a social work steam hoist operator to help give you support for any of these needs? No It can be normal to feel anxious or down during a time like this. Would you like to talk to a mental health professional about how you have been feeling? No Closing Thank you for taking the time to talk with me today. We want to work with you to ensure that we arekeeping your medical condition(s) well-controlled and to keep you healthy and out of the doctor's office or hospital. It s also not too late for me to sign you up for automated weekly questionnaires through [employer]. This is an easy way for us to stay connected each week. Are you interested? No, I understand. We can always sign you up in the future if you change your mind. Just as a reminder, will continue to call you every other week to check in on your health. Our calls should take 10-15 minutes or less. Remember, if you have concerns in between our calls, please call your PCP's office right away. Thank you. Enter next patient outreach date for two weeks on the same day of the week as today in the Track PtOutreach and End outreach. documented in this encounterWilson [facility] Hospital12-19-2022 Miscellaneous Notes* Telephone Encounter - Sveta Parr LPN - 06/07/2022 11:33 AM EST Last refill 07/08/21 Qty: 90 with 3 refills TAVIA 04/21/22 NOV 10/20/22 Sveta Parr LPN * Telephone Encounter - Renu Velez - 06/07/2022 9:42 AM EST .rxint documented in this encounterWilson [facility] Hospital11-21-2022 History of Present illness Narrative* Cece Brewer RN - 05/10/2022 9:47 AM EST INSIGHT [facility] TELEPHONIC OUTREACH Provider Action/FYI: 2nd attempt Follow up since previous [facility] Telephonic Outreach: 04/21/22 Braulio Whitney MD F/u DERM for spot on hand Labs ordered - drawn 04/23/22 KRISTYN Mauricio comment labs are all stable in good range Contact made with patient: Yes Patient identified by name and . Discussed care with patient It s nice talking to you again. As a reminder, this is our bi-weekly check-in where I will be asking you questions about your health. This will only take a few minutes of your time. Is this a good time? Yes Symptoms What Chronic Disease(s) does the patient have: CKD Do you check your blood pressures at home? No Do you have new or worse shortness of breath with activity? No Do you feel like you are dehydrated for any reason, including not being able to eat or drink normally, or having less urine/much darker urine than normal for you? No Do you check your daily weight at home? No Are you having any other symptoms that your PCP needs to know about? No Symptom Escalation The patient required an escalation for symptom(s)? No Medications Do you have any questions about taking your medication or which medications you should be on? No Do you need any medication refills at this time, including any of the medications you might take only when needed? No Social We would like to make sure you have what you need so that your basic needs are met- including your personal safety, food, housing and medications? Would you like to speak with a social work steam hoist operator to help give you support for any of these needs? Yes - patient would like to speak to a Primary Care Case Assembler - Informed patient that a PrimaryCare Case Assembler will be in contact to discuss further. Routed to the ADULT PRIMARY CARE SOCIAL WORK pool [[id number]] and indicated in the FYI box. It can be normal to feel anxious or down during a time like this. Would you like to talk to a mental health professional about how you have been feeling? No Closing Thank you for taking the time to talk with me today. We want to work with you to ensure that we arekeeping your medical condition(s) well-controlled and to keep you healthy and out of the doctor's office or hospital. It s also not too late for me to sign you up for automated weekly questionnaires through [employer]. This is an easy way for us to stay connected each week. Are you interested? No, I understand. We can always sign you up in the future if you change your mind. Just as a reminder, will continue to call you every other week to check in on your health. Our calls should take 10-15 minutes or less. Remember, if you have concerns in between our calls, please call your PCP's office right away. Thank you. Enter next patient outreach date for two weeks on the same day of the week as today in the Track PtOutreach and End outreach. * Cece Brewer RN - 05/07/2022 2:41 PM EST INSIGHT [facility] TELEPHONIC OUTREACH Provider Action/FYI: Follow up since previous [facility] Telephonic Outreach: 04/21/22 Braulio Whitney MD F/u DERM for spot on hand Labs ordered - drawn 04/23/22 KRISTYN Mauricio comment labs are all stable in good range Contact made with patient: No - Left message Hello my name is Cece Brewer RN your Pigment Processor [facility] the [facility] I am calling today for your bi-weekly check in. I am sorry I missed your call. I will reach out to you again tomorrow. (if the third call I will reach out to you again next week) Enter next patient outreach date for the following using the Track Pt Outreach. End outreach. documented in this encounterWilson [facility] Hospital09-22-2022 History of Present illness Narrative* Gabe Elizabeth MD - 03/11/2022 9:48 AM EDT Patient presents with: Left Hand - Established Patient, Post Op: 5wks 6days postop left CTR revision with nerve wrap &excision lesion left hand AMB ROOMING INTAKE FLOWSHEET DATA Patient is here today postop left CTR revision with nerve wrap & excision of lesion left hand. Patient states she is healing well and not having any pain other than some arthritis. Gabe Elizabeth MD Department of Orthopaedics Orthopa[facility] [address] [place] [address] Dept: [phone] Dept March 11, 2022 CHIEF COMPLAINT: Established Patient and Post Op of the Left Hand (5wks 6days postop left CTR revision with nerve wrap & excision lesion left hand). HPI She is actually doing quite well. We got her into see one of the dermatologists and is already had some treatment and some other concern spots. She feels improvement already from the carpal tunnel surgery but little bit of weakness in the thumb that she feels is getting better already. She can follow-up as needed. ASSESSMENT: G56.02 Carpal tunnel syndrome on left (primary encounter diagnosis) L98.9 Skin lesion of hand Exam: Surgical site(s) is healed very nicely without any concerns. Supporting Information Below: Medications: Current Outpatient Medications Medication Sig naproxen sodium (ANAPROX) 220 mg tablet Take 220 mg by mouth twice daily with meals. polyethylene glycol 3350 (MIRALAX ORAL) Take by mouth. pravastatin (PRAVACHOL) 40 mg tablet Take 1 tablet by mouth once daily. omeprazole (PRILOSEC) 40 mg capsule Take 1 capsule by mouth once daily. lisinopril-hydroCHLOROthiazide (PRINZIDE,ZESTORETIC) 10-12.5 mg per tablet Take 1 tablet by mouth every morning. latanoprost (XALATAN) 0.005 % ophthalmic solution Use 1 Drop in both eyes daily at bedtime. TO AFFECTED EYE(S) Calcium Carbonate-Vitamin D2 600 mg calcium- 200 unit tab Take 1 tablet by mouth once daily. Blood Pressure Cuff - Home Use BLOOD PRESSURE CUFF FOR HOME USE. DX: LABILE BLOOD PRESSURE No current facility-administered medications for this visit. Allergies: Patient has no known allergies. Gabe Elizabeth MD documented in this encounterWilson [facility] Hospital09-01-2022 Instructions* Patient Instructions* Marlon Mauricio PA-C - 02/18/2022 12:13 PM EDT Avoid use of Q-tips inside the ear canal as it tends to push wax in deeper, and the irritation of scraping the ear canal may produce more wax. Imagine trying to get was out of a test-tube with a cotton swab. It doesn't work. Wax is a natural protection for your ear canal. It does not need to be removed unless it is causingproblems. The skin inside your ear canal grows to the outside, so anything in the ear canal will eventually be pushed forward to the outside. If the ear becomes plugged again it is best to come for an exam and have wax confirmed and removed. OTC drops such as Debrox may help to loosen wax, but are unlikely to remove it and may cause more irritation. Over the next few days if there is any pain or discharge from the ear, call the office. documented in this encounterWilson [facility] Hospital09-01-2022 History of Present illness Narrative* Marlon Mauricio PA-C - 02/18/2022 11:43 AM EDT 81 year old female with c/o ringing in left ear. Notes some hearing loss. No pain. Uses q-tips to clean ears. 02/12/2022 saw Eulalia Clayton MEASUREMENT ADVISOR repeated rx and consult to ENT. 01/04/2022 Saw Nina Marley MEASUREMENT ADVISOR with hoarseness and cough x 2 months with left ear discomfort: given polysporin drops. HISTORIES FAMILY HISTORY Problem Relation Age of Onset Heart Mother Diabetes Mother Cancer Mother UTERUS Diabetes Father Heart Father Cancer Maternal Grandmother UTERUS Colon Cancer Daughter PAST MEDICAL HISTORY Diagnosis Date Arthritis Arthropathy, unspecified, site unspecified Backache, unspecified CKD (chronic kidney disease) stage 3, GFR 30-59 ml/min ([facility]) 07/31/2018 Diverticulosis of colon (without mention of hemorrhage) Essential hypertension, benign Female stress incontinence mild Melanoma ([facility]) 09/03/2020 Right anterior proximal upper arm Nonspecific abnormal electrocardiogram (ECG) (EKG) PAC Other and unspecified hyperlipidemia Reactive depression 07/31/2018 Symptomatic menopausal or female climacteric states PAST SURGICAL HISTORY Procedure Laterality Date ABDOMINAL SURGERY HX APPENDECTOMY APPENDECTOMY HX CHOLECSTOT/CHOLECSTOST W/EXPL DRG/RMVL ST1 SPX COLONOSCOPY FLX DX W/COLLJ SPEC WHEN PFRMD 2001 Colonoscopy COLONOSCOPY FLX DX W/COLLJ SPEC WHEN PFRMD 01/05/2012 Colonoscopy COLONOSCOPY FLX DX W/COLLJ SPEC WHEN PFRMD 01/13/2021 DILATION & CURETTAGE DX&/THER NONOBSTETRIC Dilation & curettage ESOPHAGOGASTRODUODENOSCOPY TRANSORAL DIAGNOSTIC 01/13/2021 EXC/DSTRJ LINGUAL TONSIL ANY METHOD SPX LIG/TRNSXJ FLP TUBE ABDL/VAG APPR UNI/BI Tubal ligation NEUROPLASTY &/TRANSPOS MEDIAN NRV CARPAL TUNNE 06/08/2011 Carpal tunnel decomp, right PAST SURGICAL HISTORY OF 2007 removal growth between toes =left PAST SURGICAL HISTORY OF Multple myeloma's REVISE MEDIAN N/CARPAL TUNNEL SURG 06/28/2013 left CTR REVISE MEDIAN N/CARPAL TUNNEL SURG Left 01/29/2022 Left Carpal tunnel release with nerve wrap SALPINGO-OOPHORECTOMY COMPL/PRTL UNI/BI SPX 2003 Salpingo-oophorectomy SKIN BIOPSY HX TOTAL ABDOMINAL HYSTERECT W/WO RMVL TUBE OVARY 2003 Hysterectomy, ELLIOT VAGINAL HYSTERECTOMY Social History Tobacco Use Smoking status: Never Smokeless tobacco: Never Vaping Use Vaping Use: Never used Substance Use Topics Alcohol use: No Drug use: No ACTIVE PROBLEM LIST Essential hypertension, benign Hyperlipidemia With Target Ldl Less Than 130 OBESITY Esophageal Reflux Postmenopausal Atrophic Vaginitis Female Stress Incontinence Carpal Tunnel Syndrome Melanoma of Left Upper Arm (Hcc) Stage 3a Chronic Kidney Disease (Hcc) Fibrocystic Disease of Left Breast Impaired Fasting Glucose Bppv (Benign Paroxysmal Positional Vertigo), Unspecified Laterality Spinal Stenosis of Lumbar Region With Neurogenic Claudication Glaucoma 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 polyethylene glycol 3350 (MIRALAX ORAL) Take by mouth. pravastatin (PRAVACHOL) 40 mg tablet Take 1 tablet by mouth once daily. 90 tablet 3 omeprazole (PRILOSEC) 40 mg capsule Take 1 capsule by mouth once daily. 90 capsule 3 lisinopril-hydroCHLOROthiazide (PRINZIDE,ZESTORETIC) 10-12.5 mg per tablet Take 1 tablet by mouth every morning. 90 tablet 3 Blood Pressure Cuff - Home Use BLOOD PRESSURE CUFF FOR HOME USE. DX: LABILE BLOOD PRESSURE 1 Each 0 latanoprost (XALATAN) 0.005 % ophthalmic solution Use 1 Drop in both eyes daily at bedtime. TO AFFECTED EYE(S) 0 Calcium Carbonate-Vitamin D2 600 mg calcium- 200 unit tab Take 1 tablet by mouth once daily. 30 tablet 0 No current facility-administered medications for this visit. DTAP,TDAP,TD(1 - Tdap) due on 07/12/2009 SHINGRIX VACCINE(2 of 3) due on 06/20/2012 INFLUENZA(1) due on 02/18/2022 EXAM: BP 132/74 Pulse 72 Temp 36.5 C (97.7 F) (Tympanic) Resp 14 Wt 85.7 kg (189 lb) SpO2 96% BMI 30.51 kg/m Pleasant older woman in no acute distress. Alert and oriented all spheres. Normal affect and cognition. Speech normal. No deficits to learning or comprehension. Skin warm, dry, pink to lips and nailbeds. Normal turgor. Respirations regular and unlabored. HEENT: NCAT. No scleral icterus or conjunctival injection. Right TM is clear with mild cerumen, normal landmarks. Left TM obstructed by cerumen: removed by MA with warm tap water labave: TM appears normal after. Nose and oropharynx free from injection or lesion. Oral membranes moist and pink. No cervical lymph nodes. Thyroid non-tender, no masses, or enlargement. Carotids pulses 2+/4+ without bruits. No JVD with HOB at 30 degrees. Chest is normal shape. Lungs are clear to all serra with good air exchange through out. HRRR without murmur or gallop. No lifts, heaves, or rubs. Extrem: no clubbing, cyanosis, edema. Distal pulses 2+/4, prompt capillary refill. ASSESSMENT/PLAN: 1. Impacted cerumen of left ear - ICD9: 380.4, ICD10: H61.22 Tinnitus resolved with lavage. Instructed to avoid q-tips and why. Marlon Mauricio PA-C documented in this encounterWilson Memorial Hospital08-31-2022 History of Present illness Narrative* Sailaja Yuen MA - 02/17/2022 8:22 AM EDT POPULATION HEALTH NAVIGATION OUTREACH Action/FYI H@[facility] Call in. Received warm transfer from NurseDebbie Garrison RN Patient needs:Apt for follow up ear pain/ringing. Getting worse since last OV 02/12/2022. teacher citizenship recommended apt with in 3 days Health Maintenance and Care Gaps reviewed: None Due at this time Scheduled appointment:YEs - 02/18/2022 with BLANCA Routed to: N/A Route to PCC Cece Brewer as FYI. Encounter Closed. Pt identified by name and : YES, via phone Outreach Outcome/Action Spoke to patient or caregiver: Patient scheduled Did you use a PCP flex slot to schedule this appointment? No Reason for Outreach Care Gap or Scheduling/Wellness visits Payer: Payor: [employer] MEDICARE / Plan: [employer] MEDICARE PPO / Product Type: PPO / Care Gap Reviewed:: N/A Reminder: Reminder note to check Health Maintenance for items below Health Maintenance items due: DTAP,TDAP,TD(1 - Tdap) due on 07/12/2009 SHINGRIX VACCINE(2 of 3) due on 06/20/2012 Message Sent to Practice: No Navigation Signature: Sailaja Yuen Population Health Navigator February 17, 2022 8:22 AM documented in this encounterWilson Memorial Hospital08-31-2022 Miscellaneous Notes* Telephone Encounter - Vicky Garrison RN - 02/17/2022 8:13 AM EDT [facility]ALTH[facility] AT HOME OUTREACH Provider Action/FYI: Worsening hearing loss in left ear. Ringing in both ears now. Hello, you've reached [facility], my name is Vicky Garrison RN, I'm a registered nurse, and we are on a recorded line. Patient identified by name and date of Spoke with patient Verify that the patient is a [facility] patient: Yes Are you having any symptoms today? Yes - Go to [facility] Protocol Symptoms present: Worsening hearing loss in left ear and ringing in both ears now. Based on what you've told me, I do recommend that you: Hand off to Navigator pool: Route after 5pm to H@H Navigation pool Route to [facility] Patient advised to be seen within the next 2-3 days. Do you understand my recommendations? (After patient verifies understanding) If you develop any newsymptoms, your condition worsens, then GO TO THE EMERGENCY ROOM OR CALL 911. If you have any questions, please call us back. Reason for Disposition [1] Decreased hearing in 1 ear AND [2] gradual onset Answer Assessment - Initial Assessment Questions 1. DESCRIPTION: Left ear with worsening hearing loss, ringing in both ears - right ear just starting 2. LOCATION: Left ear with hearing loss 3. SEVERITY: Not sure - can't hear fingers snapping 4. ONSET: 2-3 weeks and has slowly gotten worse 5. PATTERN: Constant 6. PAIN: Denies 7. CAUSE: Not sure 8. OTHER SYMPTOMS: Ringing in both ears 9. : Post menopausal Was prescribed neomycin-polymyxin ear drops for left ear. Patient was only taking 3 drops once daily instead of 4 times a day. Protocols used: Hearing Loss or [id number] documented in this encounterWilson Memorial Hospital08-26-2022 Instructions* Patient Instructions* Eulalia Clayton APRN.CNP - 02/12/2022 2:37 PM EDT 1.) Use prescription ear drop into the left ear to help reduce inflammation. 2.) May use debrox ear drop over the counter in the right ear to help soften ear wax. 3.) If hearing does not improve recommend consult with ENT. Local is [facility]. 4.) Follow up as needed. documented in this encounterWilson Memorial Hospital08-26-2022 History of Present illness Narrative* Eulalia Clayton APRN.CNP - 02/12/2022 2:17 PM EDT This is a 81 year old female who presents today with: Patient presents with: Acute Visit: ringing in ears HISTORY OF PRESENT ILLNESS: Libia Najera is a 81 year old female. Patient presents with: Acute Visit: ringing in ears Patient of Dr. Whitney here in the office for ringing In the ears. Bilateral ringing in the ears left greater than the right. More bothersome when its quiet. Can hear the TV but at times more difficult in the left ear. No difficulty hearing conversations. Ongoing left ear itching. Symptoms have been ongoing for some time. No discharge out of the ear, sore throat, or cough. PAST MEDICAL HISTORY: PAST MEDICAL HISTORY Diagnosis Date Arthritis Arthropathy, unspecified, site unspecified Backache, unspecified CKD (chronic kidney disease) stage 3, GFR 30-59 ml/min ([facility]) 07/31/2018 Diverticulosis of colon (without mention of hemorrhage) Essential hypertension, benign Female stress incontinence mild Melanoma ([facility]) 09/03/2020 Right anterior proximal upper arm Nonspecific abnormal electrocardiogram (ECG) (EKG) PAC Other and unspecified hyperlipidemia Reactive depression 07/31/2018 Symptomatic menopausal or female climacteric states PAST SURGICAL HISTORY Procedure Laterality Date ABDOMINAL SURGERY HX APPENDECTOMY APPENDECTOMY HX CHOLECSTOT/CHOLECSTOST W/EXPL DRG/RMVL ST1 SPX COLONOSCOPY FLX DX W/COLLJ SPEC WHEN PFRMD 2001 Colonoscopy COLONOSCOPY FLX DX W/COLLJ SPEC WHEN PFRMD 01/05/2012 Colonoscopy COLONOSCOPY FLX DX W/COLLJ SPEC WHEN PFRMD 01/13/2021 DILATION & CURETTAGE DX&/THER NONOBSTETRIC Dilation & curettage ESOPHAGOGASTRODUODENOSCOPY TRANSORAL DIAGNOSTIC 01/13/2021 EXC/DSTRJ LINGUAL TONSIL ANY METHOD SPX LIG/TRNSXJ FLP TUBE ABDL/VAG APPR UNI/BI Tubal ligation NEUROPLASTY &/TRANSPOS MEDIAN NRV CARPAL TUNNE 06/08/2011 Carpal tunnel decomp, right PAST SURGICAL HISTORY OF 2007 removal growth between toes =left PAST SURGICAL HISTORY OF Multple myeloma's REVISE MEDIAN N/CARPAL TUNNEL SURG 06/28/2013 left CTR REVISE MEDIAN N/CARPAL TUNNEL SURG Left 01/29/2022 Left Carpal tunnel release with nerve wrap SALPINGO-OOPHORECTOMY COMPL/PRTL UNI/BI SPX 2003 Salpingo-oophorectomy SKIN BIOPSY HX TOTAL ABDOMINAL HYSTERECT W/WO RMVL TUBE OVARY 2003 Hysterectomy, ELLIOT VAGINAL HYSTERECTOMY ALLERGIES Patient has no known allergies. MEDICATIONS Current Outpatient Medications Medication Sig naproxen sodium (ANAPROX) 220 mg tablet Take 220 mg by mouth twice daily with meals. polyethylene glycol 3350 (MIRALAX ORAL) Take by mouth. pravastatin (PRAVACHOL) 40 mg tablet Take 1 tablet by mouth once daily. omeprazole (PRILOSEC) 40 mg capsule Take 1 capsule by mouth once daily. lisinopril-hydroCHLOROthiazide (PRINZIDE,ZESTORETIC) 10-12.5 mg per tablet Take 1 tablet by mouth every morning. Blood Pressure Cuff - Home Use BLOOD PRESSURE CUFF FOR HOME USE. DX: LABILE BLOOD PRESSURE latanoprost (XALATAN) 0.005 % ophthalmic solution Use 1 Drop in both eyes daily at bedtime. TO AFFECTED EYE(S) Calcium Carbonate-Vitamin D2 600 mg calcium- 200 unit tab Take 1 tablet by mouth once daily. No current facility-administered medications for this visit. FAMILY HISTORY Problem Relation Age of Onset Heart Mother Diabetes Mother Cancer Mother UTERUS Diabetes Father Heart Father Cancer Maternal Grandmother UTERUS Colon Cancer Daughter Social History Tobacco Use Smoking status: Never Smokeless tobacco: Never Vaping Use Vaping Use: Never used Substance Use Topics Alcohol use: No Drug use: No REVIEW OF SYSTEMS GENERAL: No weight loss, malaise or fevers/chills HEENT: + Ringing in the ears/Left ear itching NECK: Negative for lumps, goiter, pain and significant neck swelling RESPIRATORY: Negative for cough, hemoptysis, wheezing, dyspnea or shortness of breath CARDIOVASCULAR: Negative for chest pain, leg swelling, orthopnea, or palpitations GI: No nausea, vomiting, or diarrhea/constipation. No hematochezia/melena. No heartburn or reflux symptoms. : No history of dysuria, frequency or incontinence MUSCULOSKELETAL: Negative for joint pain or swelling. SKIN: Negative for lesions, rash, and itching ENDOCRINE: Negative for cold or heat intolerance, polyuria, polydipsia and goiter NEURO: No history of headaches, syncope, paralysis, seizures or tremors MOOD: Negative for depression, anxiety, or suicidal ideation. EXAM: BP 130/62 Pulse 60 Resp 16 Wt 86.2 kg (190 lb) SpO2 95% BMI 30.67 kg/m PHYSICAL EXAM: General Appearance: Well appearing, alert, in no acute distress, well-hydrated, well nourished. Skin: Skin color, texture, turgor normal, no suspicious rashes or lesions. Head: Normocephalic, no masses, lesions, tenderness or abnormalities. Eyes: Anicteric sclera. Extraocular movements are intact. Ears: Positive findings: Unable to visualize RT TM due to cerumen, very dry. LT ear canal erythematic and dry. Neck: Supple, no adenopathy; thyroid symmetric, normal size, no bruits. Lungs: Lungs clear to auscultation. No wheezing, rhonchi, rales. Heart: RRR without murmur, gallop, or rubs. No ectopy. Extremities: No deformities, edema, skin discoloration, clubbing or cyanosis. Good capillary refill. Peripheral Pulses: Normal, Capillary refill <2secs, strong peripheral pulses, Pulses palpable. Neurologic: Gait normal. Sensation grossly intact. ASSESSMENT/PLAN: 1. Hearing difficulty of both ears - ICD9: 389.9, ICD10: H91.93 (primary diagnosis) - If hearing does not improve recommend consult with ENT. - CONSULT TO ENT 2. Dermatitis of ear canal, left - ICD9: 380.22, ICD10: H60.542 - Use ear drop as prescribed. - [id number] 3.5 MG/ML-10,000 UNIT/ML-1 % EAR SOLUTION 3. Impacted cerumen of right ear - ICD9: 380.4, ICD10: H61.21 - Recommend Debrox ear drop in the right ear to help soften ear cerumen. - May follow up in the office for ear lavage. Follow-up as needed or sooner if symptoms get worse or do not improve. Discussed treatment plan and patient voices understanding. Patient's questions answered appropriately. Medications and potential side effects were discussed and patient voices understanding. Eulalia Clayton APRN.[place] This note was partially generated using [employer] voice recognition system. Note was reviewed for accuracy. There may be minor misspellings or grammar miscues with [employer] voice recognition. documented in this encounterWilson Memorial Hospital08-24-2022 Miscellaneous Notes* Telephone Encounter - Lesli Hughes RN - 02/10/2022 8:03 AM EDT [facility] AT HOME OUTREACH Provider Action/FYI: Ringing in left ear for 1 month and right ear ringing 1 week Patient needs follow-up in primary care scheduled within the next three days due to persistent symptoms. Encounter forwarded to [facility] navigators. Chloe, you've reached [facility], my name is Lesli Hughes RN, I'm a registered nurse, and we are on a recorded line. Patient identified by name and date of Spoke with patient Verify that the patient is a [facility] patient: Yes Are you having any symptoms today? Yes - Go to [facility] Protocol Symptoms present: Ringing in left ear for 1 month and right ear ringing 1 week Based on what you've told me, I do recommend that you: Schedule with PCP within the next 3 days. Hand off to Navigator pool: Route after 5pm to [facility] Navigation pool Do you understand my recommendations? (After patient verifies understanding) If you develop any newsymptoms, your condition worsens, then GO TO THE EMERGENCY ROOM OR CALL 911. If you have any questions, please call us back. Reason for Disposition Ear congestion present > 48 hours Answer Assessment - Initial Assessment Questions 1. LOCATION: Ringing in left ear for > 1 month and right ear ringing 1 week 2. SENSATION: Patient has a ringing in ear and was seen in office 01/04/2022 with Nina Marley PHLEBOTOMY SUPPORT TECH. Medication neomycin/polymyxin B/hydrocort 3.5-10,000-1 mg/mL-unit/mL-% 3 Drops LEFT EAR 4 TIMES DAILY was offered, but was too expensive and patient did not start treatment. Patient was told ear drum was bent. 3. ONSET: 1 month and 1 week 4. PAIN: 0/10 5. CAUSE: Bent ear drum 6. URI: Denies 7. NASAL ALLERGIES: Denies Protocols used: Ear - [id number] documented in this encounterWilson Memorial Hospital08-22-2022 History of Present illness Narrative* Deepika James PA-C - 02/08/2022 3:23 PM EDT Deepika James PA-C Department of Orthopaedics Orthopaedics [address] [place] [address] Dept: [phone] Dept February 08, 2022 CHIEF COMPLAINT: Established Patient and Post Op of the Left Hand. ASSESSMENT: G56.02 Carpal tunnel syndrome on left (primary encounter diagnosis) L98.9 Skin lesion of hand SUMMARY/PLAN: Patient presents 10 days status post left carpal tunnel revision with nerve wrap and excision of lesion on the dorsum of the left hand. She is doing very well having some soreness at the wrist crease. She reports that she had a little bit of postoperative bleeding at the crease as well, that has resolved. The lesion on the dorsum of her hand was an invasive squamous cell carcinoma, the pathology report was printed for the to take, the patient has a follow-up with her outside sales advertising executive later this month. We will get her a gel brace to wear for comfort. We discussed proper hand washing, no soaking of the operative hand. No heavy lifting, pushing or pulling with the operative hand, encourage gentlemotion. We discussed scar massage. Follow up as planned. Exam: Incision site on the dorsum of the hand is well approximated without erythema or drainage. Incisionsite on the volar aspect of the wrist is slightly erythematous near the wrist crease. There is no drainage or discharge noted. Patient is able to gently flex and extend the wrist with some subjective stiffness. Patient able to form a full composite fist and extend all digits numbness in the thumb only. Imaging: Deferred today. Ms. Libia Najera was advised as to contrast therapies and/or to take analgesics/anti-inflammatories as needed and all contraindications were reviewed. Supporting Information Below: Medications: Current Outpatient Medications Medication Sig naproxen sodium (ANAPROX) 220 mg tablet Take 220 mg by mouth twice daily with meals. polyethylene glycol 3350 (MIRALAX ORAL) Take by mouth. pravastatin (PRAVACHOL) 40 mg tablet Take 1 tablet by mouth once daily. omeprazole (PRILOSEC) 40 mg capsule Take 1 capsule by mouth once daily. lisinopril-hydroCHLOROthiazide (PRINZIDE,ZESTORETIC) 10-12.5 mg per tablet Take 1 tablet by mouth every morning. latanoprost (XALATAN) 0.005 % ophthalmic solution Use 1 Drop in both eyes daily at bedtime. TO AFFECTED EYE(S) Calcium Carbonate-Vitamin D2 600 mg calcium- 200 unit tab Take 1 tablet by mouth once daily. Blood Pressure Cuff - Home Use BLOOD PRESSURE CUFF FOR HOME USE. DX: LABILE BLOOD PRESSURE No current facility-administered medications for this visit. Allergies: Patient has no known allergies. This note was partially generated using [employer] voice recognition system, and there may be some incorrect words, spellings, and punctuation that were not noted in checking the note before saving. Deepika James PA-C * Zainab Tom Ma - 02/08/2022 3:04 PM EDT AMB ROOMING INTAKE FLOWSHEET DATA Pain Pain Level: 2 Pain Location: Hand-Left Description: Aching Duration Amount of Time: (post op) Frequency: Intermittent Intervention/Comfort measure: Other: See comment (none) documented in this encounterWilson Memorial Hospital08-15-2022 Miscellaneous Notes* Telephone Encounter - Zainab Tom Ma - 02/01/2022 9:24 AM EDT Patient has been contacted with message from [employer] and verbalized understanding. * Telephone Encounter - Deepika James PA-C - 02/01/2022 8:44 AM EDT Bloody drainage is to be expected, agree with advice give. Apply clean dressing to the wrist and change the dressing at least daily. Clean surgical site with soapy water and pat dry. Gentle motion ofwriest but avoid repetitive activity or lifting over 5 pounds. If she has increased pain, swelling or drainage she can call the office and we can have her back sooner. Otherwise we will see her next week as planned. * Telephone Encounter - Zainab Tom Ma - 02/01/2022 8:27 AM EDT Patient had revision CTR and excision of lesion on 01/29/2022. Patient took dressing off today and is having some bloody drainage. Advised patient to wash hands, pat dry and apply fresh bandage for the time being. Patient denies any pain and is not taking any pain relievers. Follow up is scheduled next week. documented in this encounterWilson Memorial Hospital08-12-2022 History and physical note * Deepika James PA-C - 01/29/2022 3:15 PM EDT UPDATED HISTORY AND PHYSICAL EXAMINATION SERVICE DATE: 01/29/2022 SERVICE TIME: 4:08 PM PHYSICAL EXAM MUST BE COMPLETED ON ADMISSION The History and Physical (completed in the past 30 days) has been reviewed and the patient has beenexamined. The contents accurately reflect the patient's condition with the following additions or revisions since the H&P was completed. Examination indicates no changes. This H&P can be found in the Electronic Medical Record dated 01/27/22. SIGNATURE: Deepika James PA-C PATIENT NAME: Libia Najera DATE: January 29, 2022 TIME: 4:08 PM Source Note - Elizabeth Mendiola APRN.[place]SEA - 01/27/2022 8:54 AM EDT HISTORY AND PHYSICAL EXAMINATION SERVICE DATE: 01/27/2022 SERVICE TIME: 8:54 AM PRIMARY CARE PHYSICIAN: Braulio Whitney MD REASON FOR VISIT: Libia Najera is a 81 year old female who is scheduled for Procedure(s): DECOMPRESSION NERVE MEDIAN CARPAL TUNNEL- Revision with nerve wrap (Left) EXCISION BENIGN LESION HANDS 0.6 TO 1.0 CM (Left) at the request of Dr. Gabe Elizabeth for consultation. My final recommendation will be communicated back to the requesting physician by way of sharedmedical record or letter. 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 CHIEF COMPLAINT: Pre-op exam HPI: MB is a 81 yo seen for PAC due to scheduled above surgery because of CTS. 01/21/2022 Dr. 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 States the numbness and tingling in 1-3 fingers is getting worse. She is unable to bulk picker her medication pills and has been dropping things. Patient is right hand dominant. She does do a lot of things left handed as well. Has been wearing braces at night that was given to her previous. Patient also has a cyst/lump on the top of her left hand that has been getting larger and painful. She is seeing a Fire Alarm Repairer for this and has had it frozen a couple oftimes. REVIEW OF SYSTEMS: General: Glaucoma, on rx. No weight loss, malaise or fevers. Neurological: Positive for: peripheral neuropathy (no rx). Negative for: cerebral palsy, dementia, multiple sclerosis, seizures, TIA and strokes. Respiratory: No history of current cough or dyspnea, or pneumonia in the past 6 weeks. No history of respiratory/pulmonary symptoms or problems. Cardiovascular: Positive for: hyperlipidemia (on rx) and hypertension (on rx) Negative for: anticoagulation therapy, arrhythmia, atrial fibrillation, CAD, chest pain, CHF, congenital heart defect, DVT/PE, recent TX, murmur/valvular heart disease, open heart surgery and valve surgery. GI: Positive for: GERD (rx as needed) Negative for: abdominal pain, dysphagia, hepatitis, irritable bowel syndrome, inflammatory bowel disease, liver disease, nausea, pancreatitis, vomiting and ETOH >2 drinks/day. : Positive for: urinary incontinence and renal failure. Negative for: urinary tract infection. JIGMAKER: Negative for abnormal vaginal bleeding, abnormal vaginal discharge. Endocrine: No history of diabetes. Has not taken steroids within the past 30 days. No history of endocrinological symptoms or problems. Hematology: No history of bleeding or clotting disorder. Patient is not taking anti-coagulation or platelet medications. No history of hematological symptoms or problems. Oncology: Melanoma s/p excision, following Dr. Loco Psych: No history of psychiatric symptoms or problems. Musculoskeletal: See HPI. Positive for: joint pain (generalized). Skin: Negative for lesions, rash and itching. PAST MEDICAL HISTORY Diagnosis Date Arthritis Arthropathy, unspecified, site unspecified Backache, unspecified CKD (chronic kidney disease) stage 3, GFR 30-59 ml/min ([facility]) 07/31/2018 Diverticulosis of colon (without mention of hemorrhage) Essential hypertension, benign Female stress incontinence mild Melanoma ([facility]) 09/03/2020 Right anterior proximal upper arm Nonspecific abnormal electrocardiogram (ECG) (EKG) PAC Other and unspecified hyperlipidemia Reactive depression 07/31/2018 Symptomatic menopausal or female climacteric states PAST SURGICAL HISTORY Procedure Laterality Date ABDOMINAL SURGERY HX APPENDECTOMY APPENDECTOMY HX CHOLECSTOT/CHOLECSTOST W/EXPL DRG/RMVL ST1 SPX COLONOSCOPY FLX DX W/COLLJ SPEC WHEN PFRMD 2001 Colonoscopy COLONOSCOPY FLX DX W/COLLJ SPEC WHEN PFRMD 01/05/2012 Colonoscopy COLONOSCOPY FLX DX W/COLLJ SPEC WHEN PFRMD 01/13/2021 DILATION & CURETTAGE DX&/THER NONOBSTETRIC Dilation & curettage ESOPHAGOGASTRODUODENOSCOPY TRANSORAL DIAGNOSTIC 01/13/2021 EXC/DSTRJ LINGUAL TONSIL ANY METHOD SPX LIG/TRNSXJ FLP TUBE ABDL/VAG APPR UNI/BI Tubal ligation NEUROPLASTY &/TRANSPOS MEDIAN NRV CARPAL TUNNE 06/08/2011 Carpal tunnel decomp, right PAST SURGICAL HISTORY OF 2007 removal growth between toes =left PAST SURGICAL HISTORY OF Multple myeloma's REVISE MEDIAN N/CARPAL TUNNEL SURG 06/28/2013 left CTR SALPINGO-OOPHORECTOMY COMPL/PRTL UNI/BI SPX 2003 Salpingo-oophorectomy SKIN BIOPSY HX TOTAL ABDOMINAL HYSTERECT W/WO RMVL TUBE OVARY 2003 Hysterectomy, ELLIOT VAGINAL HYSTERECTOMY FAMILY HISTORY Problem Relation Age of Onset Heart Mother Diabetes Mother Cancer Mother UTERUS Diabetes Father Heart Father Cancer Maternal Grandmother UTERUS Colon Cancer Daughter Social History Tobacco Use Smoking status: Never Smokeless tobacco: Never Vaping Use Vaping Use: Never used Substance Use Topics Alcohol use: No Drug use: No Prior to Admission medications as of 01/27/22 0829 Medication Sig Last Dose Taking naproxen sodium (ANAPROX) 220 mg tablet Take 220 mg by mouth twice daily with meals. Taking Yes pravastatin (PRAVACHOL) 40 mg tablet Take 1 tablet by mouth once daily. Taking Yes omeprazole (PRILOSEC) 40 mg capsule Take 1 capsule by mouth once daily. Patient taking differently: Take 40 mg by mouth as needed. Taking Yes lisinopril-hydroCHLOROthiazide (PRINZIDE,ZESTORETIC) 10-12.5 mg per tablet Take 1 tablet by mouth every morning. Taking Yes Blood Pressure Cuff - Home Use BLOOD PRESSURE CUFF FOR HOME USE. DX: LABILE BLOOD PRESSURE Taking Yes latanoprost (XALATAN) 0.005 % ophthalmic solution Use 1 Drop in both eyes daily at bedtime. TO AFFECTED EYE(S) Taking Yes Calcium Carbonate-Vitamin D2 600 mg calcium- 200 unit tab Take 1 tablet by mouth once daily. Taking Yes polyethylene glycol 3350 (MIRALAX ORAL) Take by mouth. No medication comments found. ALLERGIES No Known Allergies Objective PHYSICAL EXAM: General: alert and oriented (x3), healthy appearance and obese. Pertinent negatives noted - not distressed. Skin: normal color, no rash or lesions. HEENT: EOM intact and pupils equal round. Pertinent negatives noted - no carotid bruit. Cardiovascular: regular rate and rhythm, normal S1 and S2, no rub, murmurs, or gallop. Respiratory: normal breath sounds, no wheezes or crackles. No chest wall deformity or tenderness. Abdomen: soft. Pertinent negatives noted - not tender. Extremities: no deformity, no edema or tenderness, no joint swelling or clubbing. Neurological: normal cognition and motor skills. Gait normal. No weakness or sensory deficit. PAIN ASSESSMENT: Pain Pain Level: 8 Pain Location: Hand-Left Description: Sharp Duration Amount of Time: 1 Duration Units: Years Frequency: Continuous Intervention/Comfort measure: Medication VITALS: BP 122/64 Pulse 65 Temp (Src) 98.9 (Temporal) Resp 16 Ht 5' 6 (1.68m) Wt 188 lb (85.3kg) SpO2 99% BMI 30.36 kg/(m^2). Diagnostic tests reviewed for today's visit: Lab Value Units Date High Low HB No results within date range. HCT No results within date range. WBC No results within date range. PLT No results within date range. NA No results within date range. K No results within date range. GLUC No results within date range. BUN No results within date range. CREAT No results within date range. PTSEC No results within date range. INR No results within date range. APTT No results within date range. ALT No results within date range. AST No results within date range. TBILI No results within date range. TSH No results within date range. Lab Value Units Date High Low HCGQT No results within date range. UHCG No results within date range. HCG, BODY* No results within date range. Lab Value Units Date High Low ABORHD No results within date range. ABSCREEN No results within date range. Hemoglobin A1C (%) Date Value 05/18/2021 5.9 11/03/2020 6.4 04/22/2020 6.4 05/31/2019 6.2 11/06/2018 6.0 No results found for this or any previous visit (from the past 8760 hour(s)). No results found for this or any previous visit (from the past 84308 hour(s)). Assessment ESOPHAGEAL REFLUX Assessment: rx as needed Essential hypertension, benign Assessment: controlled on rx Last 14 BP Last 14 Encounter BP Readings: Date: BP: 01/27/2022 122/64 01/04/2022 146/68 10/19/2021 132/82 05/18/2021 128/82 02/13/2021 110/62 12/12/2020 116/64 12/12/2020 122/60 10/31/2020 134/72 09/04/2020 130/86 04/29/2020 140/69 08/06/2019 126/70 07/04/2019 161/73 05/31/2019 189/79 03/05/2019 128/72 FEMALE STRESS INCONTINENCE Assessment: no current tx Hyperlipidemia with target LDL less than 130 Assessment: c/w statin Glaucoma suspect of both eyes Assessment: on rx Impaired fasting glucose Assessment: diet controlled Hemoglobin A1C (%) Date Value 05/18/2021 5.9 Neuropathy - (NOS) Assessment: no current tx Melanoma of left upper arm (HCC) Assessment: s/p excision, following Dr. Loco Stage 3a chronic kidney disease (HCC) Assessment: Creatinine Date Value Ref Range Status 05/18/2021 0.93 0.58 - 0.96 mg/dL Final 11/03/2020 0.89 0.58 - 0.96 mg/dL Final 04/22/2020 0.99 (H) 0.58 - 0.96 mg/dL Final 05/31/2019 0.98 (H) 0.58 - 0.96 mg/dL Final Spinal stenosis of lumbar region with neurogenic claudication Assessment: otc analgesics as needed OBESITY Assessment: Body mass index is 30.34 kg/m . Ramires Activity Status Index: METS: Climb a flight of stairs or walk up a hill (5.50 METs) DASI Score: 5.5 Patient denies any chest pain or undue shortness of breath with the above physical activity. Clinical Frailty Scale: 3. Well, with treated comorbid disease STOP-Bang Score: Snores loudly Has or is being treated for high blood pressure Patient over 50 years old Denies feeling tired, fatigued, or sleepy during the daytime Has not been observed to stop breathing or choking/gasping during sleep BMI less than or equal to 35 kg/m^2 Does not have a large neck Non-male patient STOP-Bang Score: 3 [id number] Score: Age: >=75 Sex: female CHF history: No Hypertension history: Yes Stroke/TIA/thromboembolism history: No Vascular disease history: No Diabetes history: No [id number] Score: 4 ARISCAT Score: Age: >80 Preoperative SpO2: >=96% Respiratory infection in the last month: No Preoperative anemia: No Surgical incision: peripheral Duration of surgery: <2 hrs Emergency procedure: No ARISCAT Score: 16 ASA Class: 3 ANESTHESIA FINDINGS: Intubation History: No history of difficult intubation Significant Anesthesia Considerations: none Airway History: No history of difficult airway I - PHYSICAL EVALUATION AIRWAYTracheostomy tube not present Mallampati: II. TM distance: >3 FB. Neck ROM: full ROM without neurological symptoms. Mouth opening: adequate. Short neck: no. Thick neck: no DENTAL Dentures, upper: complete. Dentures, lower: partial. II - ANESTHESIA PLAN ASA Score: 3 Anesthetic Plan: other Anesthetic plan additional comments: *PACC/TCI - anesthesia choice. Informed Consent Anesthetic risks, benefits, alternatives, personnel and consent discussed: yes. Patient / Responsible Green Party agrees to proceed: yes Patient / Surrogate agrees to blood products: blood products not planned Prepared for Surgery: optimally prepared for surgery. CONSULTS: Patient does not require consults for optimization at this time Planned Anesthetic: other anesthesia choice The Following Tests/Procedures Have Been Initiated: No orders of the defined types were placed in this encounter. Instructions Given to Patient: Instructions located in the after visit summary. Patient given verbal and written preop instructions and voices comprehension and compliance. SIGNATURE: Elizabeth Mendiola APRN.CNP PATIENT NAME: Libia Najera DATE: January 27, 2022 TIME: 8:54 AM PAGER/CONTACT #: documented in this encounterWilson [facility]08-10-[facility] History and physical note * Elizabeth Mendiola APRN.CNP - 01/27/2022 8:54 AM EDT HISTORY AND PHYSICAL EXAMINATION SERVICE DATE: 01/27/2022 SERVICE TIME: 8:54 AM PRIMARY CARE PHYSICIAN: Braulio Whitney MD REASON FOR VISIT: Libia Najera is a 81 year old female who is scheduled for Procedure(s): DECOMPRESSION NERVE MEDIAN CARPAL TUNNEL- Revision with nerve wrap (Left) EXCISION BENIGN LESION HANDS 0.6 TO 1.0 CM (Left) at the request of Dr. Gabe Elizabeth for consultation. My final recommendation will be communicated back to the requesting physician by way of sharedmedical record or letter. 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 CHIEF COMPLAINT: Pre-op exam HPI: MB is a 81 yo seen for PAC due to scheduled above surgery because of CTS. 01/21/2022 Dr. 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 States the numbness and tingling in 1-3 fingers is getting worse. She is unable to bulk picker her medication pills and has been dropping things. Patient is right hand dominant. She does do a lot of things left handed as well. Has been wearing braces at night that was given to her previous. Patient also has a cyst/lump on the top of her left hand that has been getting larger and painful. She is seeing a Fire Alarm Repairer for this and has had it frozen a couple oftimes. REVIEW OF SYSTEMS: General: Glaucoma, on rx. No weight loss, malaise or fevers. Neurological: Positive for: peripheral neuropathy (no rx). Negative for: cerebral palsy, dementia, multiple sclerosis, seizures, TIA and strokes. Respiratory: No history of current cough or dyspnea, or pneumonia in the past 6 weeks. No history of respiratory/pulmonary symptoms or problems. Cardiovascular: Positive for: hyperlipidemia (on rx) and hypertension (on rx) Negative for: anticoagulation therapy, arrhythmia, atrial fibrillation, CAD, chest pain, CHF, congenital heart defect, DVT/PE, recent TX, murmur/valvular heart disease, open heart surgery and valve surgery. GI: Positive for: GERD (rx as needed) Negative for: abdominal pain, dysphagia, hepatitis, irritable bowel syndrome, inflammatory bowel disease, liver disease, nausea, pancreatitis, vomiting and ETOH >2 drinks/day. : Positive for: urinary incontinence and renal failure. Negative for: urinary tract infection. JIGMAKER: Negative for abnormal vaginal bleeding, abnormal vaginal discharge. Endocrine: No history of diabetes. Has not taken steroids within the past 30 days. No history of endocrinological symptoms or problems. Hematology: No history of bleeding or clotting disorder. Patient is not taking anti-coagulation or platelet medications. No history of hematological symptoms or problems. Oncology: Melanoma s/p excision, following Dr. Loco Psych: No history of psychiatric symptoms or problems. Musculoskeletal: See HPI. Positive for: joint pain (generalized). Skin: Negative for lesions, rash and itching. PAST MEDICAL HISTORY Diagnosis Date Arthritis Arthropathy, unspecified, site unspecified Backache, unspecified CKD (chronic kidney disease) stage 3, GFR 30-59 ml/min ([facility]) 07/31/2018 Diverticulosis of colon (without mention of hemorrhage) Essential hypertension, benign Female stress incontinence mild Melanoma ([facility]) 09/03/2020 Right anterior proximal upper arm Nonspecific abnormal electrocardiogram (ECG) (EKG) PAC Other and unspecified hyperlipidemia Reactive depression 07/31/2018 Symptomatic menopausal or female climacteric states PAST SURGICAL HISTORY Procedure Laterality Date ABDOMINAL SURGERY HX APPENDECTOMY APPENDECTOMY HX CHOLECSTOT/CHOLECSTOST W/EXPL DRG/RMVL ST1 SPX COLONOSCOPY FLX DX W/COLLJ SPEC WHEN PFRMD 2001 Colonoscopy COLONOSCOPY FLX DX W/COLLJ SPEC WHEN PFRMD 01/05/2012 Colonoscopy COLONOSCOPY FLX DX W/COLLJ SPEC WHEN PFRMD 01/13/2021 DILATION & CURETTAGE DX&/THER NONOBSTETRIC Dilation & curettage ESOPHAGOGASTRODUODENOSCOPY TRANSORAL DIAGNOSTIC 01/13/2021 EXC/DSTRJ LINGUAL TONSIL ANY METHOD SPX LIG/TRNSXJ FLP TUBE ABDL/VAG APPR UNI/BI Tubal ligation NEUROPLASTY &/TRANSPOS MEDIAN NRV CARPAL TUNNE 06/08/2011 Carpal tunnel decomp, right PAST SURGICAL HISTORY OF 2007 removal growth between toes =left PAST SURGICAL HISTORY OF Multple myeloma's REVISE MEDIAN N/CARPAL TUNNEL SURG 06/28/2013 left CTR SALPINGO-OOPHORECTOMY COMPL/PRTL UNI/BI SPX 2003 Salpingo-oophorectomy SKIN BIOPSY HX TOTAL ABDOMINAL HYSTERECT W/WO RMVL TUBE OVARY 2003 Hysterectomy, ELLIOT VAGINAL HYSTERECTOMY FAMILY HISTORY Problem Relation Age of Onset Heart Mother Diabetes Mother Cancer Mother UTERUS Diabetes Father Heart Father Cancer Maternal Grandmother UTERUS Colon Cancer Daughter Social History Tobacco Use Smoking status: Never Smokeless tobacco: Never Vaping Use Vaping Use: Never used Substance Use Topics Alcohol use: No Drug use: No Prior to Admission medications as of 01/27/22 0829 Medication Sig Last Dose Taking naproxen sodium (ANAPROX) 220 mg tablet Take 220 mg by mouth twice daily with meals. Taking Yes pravastatin (PRAVACHOL) 40 mg tablet Take 1 tablet by mouth once daily. Taking Yes omeprazole (PRILOSEC) 40 mg capsule Take 1 capsule by mouth once daily. Patient taking differently: Take 40 mg by mouth as needed. Taking Yes lisinopril-hydroCHLOROthiazide (PRINZIDE,ZESTORETIC) 10-12.5 mg per tablet Take 1 tablet by mouth every morning. Taking Yes Blood Pressure Cuff - Home Use BLOOD PRESSURE CUFF FOR HOME USE. DX: LABILE BLOOD PRESSURE Taking Yes latanoprost (XALATAN) 0.005 % ophthalmic solution Use 1 Drop in both eyes daily at bedtime. TO AFFECTED EYE(S) Taking Yes Calcium Carbonate-Vitamin D2 600 mg calcium- 200 unit tab Take 1 tablet by mouth once daily. Taking Yes polyethylene glycol 3350 (MIRALAX ORAL) Take by mouth. No medication comments found. ALLERGIES No Known Allergies Objective PHYSICAL EXAM: General: alert and oriented (x3), healthy appearance and obese. Pertinent negatives noted - not distressed. Skin: normal color, no rash or lesions. HEENT: EOM intact and pupils equal round. Pertinent negatives noted - no carotid bruit. Cardiovascular: regular rate and rhythm, normal S1 and S2, no rub, murmurs, or gallop. Respiratory: normal breath sounds, no wheezes or crackles. No chest wall deformity or tenderness. Abdomen: soft. Pertinent negatives noted - not tender. Extremities: no deformity, no edema or tenderness, no joint swelling or clubbing. Neurological: normal cognition and motor skills. Gait normal. No weakness or sensory deficit. PAIN ASSESSMENT: Pain Pain Level: 8 Pain Location: Hand-Left Description: Sharp Duration Amount of Time: 1 Duration Units: Years Frequency: Continuous Intervention/Comfort measure: Medication VITALS: BP 122/64 Pulse 65 Temp (Src) 98.9 (Temporal) Resp 16 Ht 5' 6 (1.68m) Wt 188 lb (85.3kg) SpO2 99% BMI 30.36 kg/(m^2). Diagnostic tests reviewed for today's visit: Lab Value Units Date High Low HB No results within date range. HCT No results within date range. WBC No results within date range. PLT No results within date range. NA No results within date range. K No results within date range. GLUC No results within date range. BUN No results within date range. CREAT No results within date range. PTSEC No results within date range. INR No results within date range. APTT No results within date range. ALT No results within date range. AST No results within date range. TBILI No results within date range. TSH No results within date range. Lab Value Units Date High Low HCGQT No results within date range. UHCG No results within date range. HCG, BODY* No results within date range. Lab Value Units Date High Low ABORHD No results within date range. ABSCREEN No results within date range. Hemoglobin A1C (%) Date Value 05/18/2021 5.9 11/03/2020 6.4 04/22/2020 6.4 05/31/2019 6.2 11/06/2018 6.0 No results found for this or any previous visit (from the past 8760 hour(s)). No results found for this or any previous visit (from the past 99950 hour(s)). Assessment ESOPHAGEAL REFLUX Assessment: rx as needed Essential hypertension, benign Assessment: controlled on rx Last 14 BP Last 14 Encounter BP Readings: Date: BP: 01/27/2022 122/64 01/04/2022 146/68 10/19/2021 132/82 05/18/2021 128/82 02/13/2021 110/62 12/12/2020 116/64 12/12/2020 122/60 10/31/2020 134/72 09/04/2020 130/86 04/29/2020 140/69 08/06/2019 126/70 07/04/2019 161/73 05/31/2019 189/79 03/05/2019 128/72 FEMALE STRESS INCONTINENCE Assessment: no current tx Hyperlipidemia with target LDL less than 130 Assessment: c/w statin Glaucoma suspect of both eyes Assessment: on rx Impaired fasting glucose Assessment: diet controlled Hemoglobin A1C (%) Date Value 05/18/2021 5.9 Neuropathy - (NOS) Assessment: no current tx Melanoma of left upper arm (HCC) Assessment: s/p excision, following Dr. Loco Stage 3a chronic kidney disease (HCC) Assessment: Creatinine Date Value Ref Range Status 05/18/2021 0.93 0.58 - 0.96 mg/dL Final 11/03/2020 0.89 0.58 - 0.96 mg/dL Final 04/22/2020 0.99 (H) 0.58 - 0.96 mg/dL Final 05/31/2019 0.98 (H) 0.58 - 0.96 mg/dL Final Spinal stenosis of lumbar region with neurogenic claudication Assessment: otc analgesics as needed OBESITY Assessment: Body mass index is 30.34 kg/m . Ramires Activity Status Index: METS: Climb a flight of stairs or walk up a hill (5.50 METs) DASI Score: 5.5 Patient denies any chest pain or undue shortness of breath with the above physical activity. Clinical Frailty Scale: 3. Well, with treated comorbid disease STOP-Bang Score: Snores loudly Has or is being treated for high blood pressure Patient over 50 years old Denies feeling tired, fatigued, or sleepy during the daytime Has not been observed to stop breathing or choking/gasping during sleep BMI less than or equal to 35 kg/m^2 Does not have a large neck Non-male patient STOP-Bang Score: 3 [id number] Score: Age: >=75 Sex: female CHF history: No Hypertension history: Yes Stroke/TIA/thromboembolism history: No Vascular disease history: No Diabetes history: No [id number] Score: 4 ARISCAT Score: Age: >80 Preoperative SpO2: >=96% Respiratory infection in the last month: No Preoperative anemia: No Surgical incision: peripheral Duration of surgery: <2 hrs Emergency procedure: No ARISCAT Score: 16 ASA Class: 3 ANESTHESIA FINDINGS: Intubation History: No history of difficult intubation Significant Anesthesia Considerations: none Airway History: No history of difficult airway I - PHYSICAL EVALUATION AIRWAYTracheostomy tube not present Mallampati: II. TM distance: >3 FB. Neck ROM: full ROM without neurological symptoms. Mouth opening: adequate. Short neck: no. Thick neck: no DENTAL Dentures, upper: complete. Dentures, lower: partial. II - ANESTHESIA PLAN ASA Score: 3 Anesthetic Plan: other Anesthetic plan additional comments: *PACC/TCI - anesthesia choice. Informed Consent Anesthetic risks, benefits, alternatives, personnel and consent discussed: yes. Patient / Responsible Green Party agrees to proceed: yes Patient / Surrogate agrees to blood products: blood products not planned Prepared for Surgery: optimally prepared for surgery. CONSULTS: Patient does not require consults for optimization at this time Planned Anesthetic: other anesthesia choice The Following Tests/Procedures Have Been Initiated: No orders of the defined types were placed in this encounter. Instructions Given to Patient: Instructions located in the after visit summary. Patient given verbal and written preop instructions and voices comprehension and compliance. SIGNATURE: Elizabeth Mendiola APRN.CNP PATIENT NAME: Libia Najera DATE: January 27, 2022 TIME: 8:54 AM PAGER/CONTACT #: documented in this encounterWilson [facility]08-10-2022 Instructions* Patient Instructions* Elizabeth Mendiola APRN.CNP - 01/27/2022 8:54 AM EDT PATIENT PREOPERATIVE INSTRUCTIONS Gabe Elizabeth MD has scheduled you for your procedure at this surgery center: [facility]: [phone] - [address] [place] [address]. Please read below carefully for your personalized instructions. Dietary Restrictions: - No solid food after midnight. - You may have 12 ounces of clear liquids (water, clear juices such as apple juice or gatorade, carbonated beverages, clear tea, black coffee, jello) until 2 hours before scheduled arrival at facility. Medications: Unless instructed differently below, stay on all of your medications until your surgery. Approved medications to take the morning of surgery with a sip of water: Omeprazole, Pravastatin DO NOT TAKE YOUR Lisinopril/HCTZ THE NIGHT BEFORE OR MORNING OF SURGERY If you start any new medications after today's visit, please contact the surgeon's office. Blood Thinning Medications: - Stop NSAIDS (Ibuprofen, Advil, Aleve, Motrin, Celebrex, Mobic, etc.) 2 days before surgery, as directed by your surgeon. - Stop Aspirin 2 days before surgery, as directed by your surgeon. - Stop Vitamin E, ALL multi-vitamins, herbals and dietary supplements 2 days before surgery. - You may take Tylenol (Acetaminophen) or any of your pain medications that do not contain aspirin or NSAIDS as needed. Important Reminders: - If you use CPAP/BIPAP, bring the machine with you to the surgery center. - If you are prescribed inhalers for breathing, continue using them. - Candy, mints, and tobacco products are NOT permitted the morning of surgery. - Hearing aids, dentures and glasses may be worn the morning of surgery. - NO jewelry, body piercings, makeup, hairpins or contacts are to be worn the day of surgery. If you develop symptoms such as a fever, cold, or flu, or have other changes to your health within TWO DAYS of scheduled surgery or the morning of surgery, please contact the surgery center above. Personal Belongings: -Please have photo ID and insurance cards. -If you do not have a copy of advance directives on file with us, please bring a copy with you on the day of surgery. - Leave ALL valuables and money at home or with family members. For Outpatient Procedures: - YOU MUST HAVE A RESPONSIBLE STATISTICAL ANALYST TAKE YOU HOME. A WHARFINGER CHIEF OR WOOD DIE MAKER CANNOT BE MADE A RESPONSIBLE STATISTICAL ANALYST. - We recommend that a responsible person stays with you overnight to take care of you. - You cannot stay in a hotel alone after outpatient surgery. You will not be permitted to have yoursurgery, if you do not have someone to take care of you. Arrival Time for Surgery: - The Surgery Center or hospital where you are having surgery will call the afternoon before surgery (or Tuesday for Tuesday surgery) with a scheduled arrival time. - If you have not heard by 4 pm, please contact the surgery center above. Please be aware that emergency situations arise, which may delay or change your surgical time. If this happens, we will notify you as soon as possible and regret any inconvenience. If you already have an Advance Directive, please fax a copy to [phone] or email to for it to be added to your chart. If you do not have an Advance Directive, you can find the appropriate form and more information at [email or web address]. We recommend that youcomplete the Advance Directive form found on the website and bring it with you the day of your surgery. It can be witnessed and scanned into your chart that day. Elizabeth Mendiola APRN.[place] documented in this encounterWilson [facility] Hospital08-04-2022 Miscellaneous Notes* Telephone Encounter - Zainab Tom Ma - 01/21/2022 10:46 AM EDT Surgery has been scheduled as requested. * Telephone Encounter - Zainab Tom Ma - 01/21/2022 9:10 AM EDT Surgical request completed for left CTR revision with nerve wrap and left hand dorsum excision skinlesion at [facility] on 01/29/2022 with MAC anesthesia. Post op appointments have been scheduled and mailed to patient. documented in this encounterWilson [facility] Hospital08-04-[facility]22 History of Present illness Narrative* Gabe Elizabeth MD - 01/21/2022 8:25 AM EDT Gabe Elizabeth MD Department of Orthopaedics Orthopaedics [address] [id number] Dept: [phone] Dept January 21, 2022 Consultation requested by Nina Marley CNP for an opinion regarding bilateral hand numbness. My final recommendations will be communicated back to the requesting physician by way of shared Medicalrecord or letter to requesting physician via US mail. 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 States the numbness and tingling in 1-3 fingers is getting worse. She is unable to bulk picker her medication pills and has been dropping things. Patient is right hand dominant. She does do a lot of things left handed as well. Has been wearing braces at night that was given to her previous. Patient also has a cyst/lump on the top of her left hand that has been getting larger and painful. She is seeing a Fire Alarm Repairer for this and has had it frozen a couple oftimes. ASSESSMENT: L98.9 Skin lesion of hand (primary encounter diagnosis) G56.03 Carpal tunnel syndrome, bilateral PLAN: We had a lengthy discussion about her treatment options. She does appear to have had some return ofher carpal tunnel again as it was quite severe at that time. We discussed the risks, benefits, alternatives and potential complications involving both operative nonoperative care and she would like to have revision surgery of the left hand, and while under anesthesia, will excised and sent for pathology the skin lesion on the dorsum of the hand. FOLLOW UP INSTRUCTIONS: As above Ms. Libia Najera was advised as to contrast therapies and/or to take analgesics/anti-inflammatories as needed and all contraindications were reviewed. OBJECTIVE: Ms. Libia Najera is a pleasant 81 year old in no apparent distress. Gen:There were no vitals taken for this visit. nl development, non obese, no deformities ENT: Normocephalic, normal hearing, moist mucosa CV: Pulses:Radial= 2+ and symmetric, capillary refill < 2 secs, no peripheral edema/varicosities Skin: no rash, bruising or lesions. Good turgor. Psych: cooperative and appropriate, alert and oriented x 3, good mood and affect. Musculoskeletal: Previous surgical scar noted without any complications. There is some minor but no significant atrophy of the thenar muscles. She has positive Tinel's and lesser degree nerve compression test, left worse than right. On the dorsum of the hand there is a nodular skin lesion about 7 mm in diameter andmay be 5 mm raised off the skin. It has a central scab to it. No redness no surrounding swelling. No drainage. IMAGING: Deferred today Supporting Subjective Information Below: Past Medical History: PAST MEDICAL HISTORY Diagnosis Date Arthritis Arthropathy, unspecified, site unspecified Backache, unspecified CKD (chronic kidney disease) stage 3, GFR 30-59 ml/min ([facility]) 07/31/2018 Diverticulosis of colon (without mention of hemorrhage) Essential hypertension, benign Female stress incontinence mild Melanoma ([facility]) 09/03/2020 Right anterior proximal upper arm Nonspecific abnormal electrocardiogram (ECG) (EKG) PAC Other and unspecified hyperlipidemia Reactive depression 07/31/2018 Symptomatic menopausal or female climacteric states Past Surgical History: PAST SURGICAL HISTORY Procedure Laterality Date ABDOMINAL SURGERY HX APPENDECTOMY APPENDECTOMY HX CHOLECSTOT/CHOLECSTOST W/EXPL DRG/RMVL ST1 SPX COLONOSCOPY FLX DX W/COLLJ SPEC WHEN PFRMD 2001 Colonoscopy COLONOSCOPY FLX DX W/COLLJ SPEC WHEN PFRMD 01/05/2012 Colonoscopy COLONOSCOPY FLX DX W/COLLJ SPEC WHEN PFRMD 01/13/2021 DILATION & CURETTAGE DX&/THER NONOBSTETRIC Dilation & curettage ESOPHAGOGASTRODUODENOSCOPY TRANSORAL DIAGNOSTIC 01/13/2021 EXC/DSTRJ LINGUAL TONSIL ANY METHOD SPX LIG/TRNSXJ FLP TUBE ABDL/VAG APPR UNI/BI Tubal ligation NEUROPLASTY &/TRANSPOS MEDIAN NRV CARPAL TUNNE 06/08/2011 Carpal tunnel decomp, right PAST SURGICAL HISTORY OF 2007 removal growth between toes =left PAST SURGICAL HISTORY OF Multple myeloma's REVISE MEDIAN N/CARPAL TUNNEL SURG 06/28/2013 left CTR SALPINGO-OOPHORECTOMY COMPL/PRTL UNI/BI SPX 2003 Salpingo-oophorectomy SKIN BIOPSY HX TOTAL ABDOMINAL HYSTERECT W/WO RMVL TUBE OVARY 2003 Hysterectomy, ELLIOT VAGINAL HYSTERECTOMY Family History: FAMILY HISTORY Problem Relation Age of Onset Heart Mother Diabetes Mother Cancer Mother UTERUS Diabetes Father Heart Father Cancer Maternal Grandmother UTERUS Colon Cancer Daughter Social History: Social History Tobacco Use Smoking status: Never Smoker Smokeless tobacco: Never Used Vaping Use Vaping Use: Never used Substance Use Topics Alcohol use: No Drug use: No Medications: Current Outpatient Medications Medication Sig naproxen sodium (ALEVE) 220 mg tablet Take 220 mg by mouth twice daily with meals. polyethylene glycol 3350 (MIRALAX ORAL) Take by mouth. pravastatin (PRAVACHOL) 40 mg tablet Take 1 tablet by mouth once daily. lisinopril-hydroCHLOROthiazide (PRINZIDE,ZESTORETIC) 10-12.5 mg per tablet Take 1 tablet by mouth every morning. Blood Pressure Cuff - Home Use BLOOD PRESSURE CUFF FOR HOME USE. DX: LABILE BLOOD PRESSURE latanoprost (XALATAN) 0.005 % ophthalmic solution Use 1 Drop in both eyes daily at bedtime. TO AFFECTED EYE(S) Calcium Carbonate-Vitamin D2 (CALCIUM + D) 600 mg calcium- 200 unit ORAL Tab Take 1 tablet by mouthonce daily. vqxzrctc-vcvqqtuqx-vkihnbjtyiohzb (CORTISPORIN) otic solution Use 3 Drops in the left ear four times daily. (Patient not taking: Reported on 01/21/2022 ) omeprazole (PRILOSEC) 40 mg capsule Take 1 capsule by mouth once daily. (Patient not taking: Reported on 12/31/2021 ) famotidine (PEPCID) 20 mg tablet Take 1 tablet by mouth daily at bedtime. (Patient not taking: Reported on 12/31/2021 ) No current facility-administered medications for this visit. Allergies: Patient has no known allergies. ROS: General (negative for fatigue, malaise, weight loss/gain) HEENT (negative for headache, earache, recent vision changes, sinus pain, sore throat) Respiratory (no recent shortness of breath, hemoptysis) CV (negative for chest tightness, palpitations) Musculoskeletal (see HPI) Psych (no depression, anxiety) REFERRING PHYSICIAN: Debbie Libia Najera was referred to me for consultation by the following physician. This consultation note will be sent to the following physician by either mail or electronic medical record. Nina Marley [address] [facility] [id number] Braulio Whitney MD [address] [facility] [address] Gabe Elizabeth MD documented in this encounterWilson Memorial Hospital07-18-2022 Instructions* Patient Instructions* Nina Marley APRN.[place] - 01/04/2022 2:32 PM EDT 1. Restart the stomach medication and see if that helps with the hoarseness. Let us know if it doesn't work. 3. Start the ear drops daily 3-4 times daily X 1 week. Let me know if no better/worsening. 4. Follow-up with Dr. Loco for the spot on the hand. 5. Schedule w/ Dr. Elizabeth for the carpal tunnel. documented in this encounterWilson [facility] Hospital07-18-2022 History of Present illness Narrative* Nina Marley APRN.MEASUREMENT ADVISOR - 01/04/2022 2:15 PM EDT This is a 81 year old female who presents today with: Patient presents with: Cough: with hoarseness x 2 months with LEFT ear discomfort HISTORY OF PRESENT ILLNESS: Libia Najera is a 81 year old female. Patient presents with: Cough: with hoarseness x 2 months with LEFT ear discomfort Pt presents today with: Complaint of left ear trouble. Feels like there is something in there. + ringing. + itch. + hoarseness. Has been slowly getting worse over the last 1-2 months. If she talks too much, will cough -- nonproductive. No runny/stuffy nose. Doesn't take anything for it. Refers that she will take an aleve at night if she is sore. No known PND. She does have a history of acid reflux. She reports that her stomach has not been bothersome so shestopped her medicine about a month ago. Spot on her hand. Has had awhile. Tender. Follows w/ Dr. Loco. Thinks she has a follow-up with him next month. Thinks she has carpal tunnel. Refers n/t of the thumb and first finger. Worse in the left hand. Refers that she was made right handed as child, but does everything with her left hand. Wears a left splint at night. Hx of release. PAST MEDICAL HISTORY: PAST MEDICAL HISTORY Diagnosis Date Arthritis Arthropathy, unspecified, site unspecified Backache, unspecified CKD (chronic kidney disease) stage 3, GFR 30-59 ml/min ([facility]) 07/31/2018 Diverticulosis of colon (without mention of hemorrhage) Essential hypertension, benign Female stress incontinence mild Melanoma ([facility]) 09/03/2020 Right anterior proximal upper arm Nonspecific abnormal electrocardiogram (ECG) (EKG) PAC Other and unspecified hyperlipidemia Reactive depression 07/31/2018 Symptomatic menopausal or female climacteric states PAST SURGICAL HISTORY Procedure Laterality Date ABDOMINAL SURGERY HX APPENDECTOMY APPENDECTOMY HX CHOLECSTOT/CHOLECSTOST W/EXPL DRG/RMVL ST1 SPX COLONOSCOPY FLX DX W/COLLJ SPEC WHEN PFRMD 2001 Colonoscopy COLONOSCOPY FLX DX W/COLLJ SPEC WHEN PFRMD 01/05/2012 Colonoscopy COLONOSCOPY FLX DX W/COLLJ SPEC WHEN PFRMD 01/13/2021 DILATION & CURETTAGE DX&/THER NONOBSTETRIC Dilation & curettage ESOPHAGOGASTRODUODENOSCOPY TRANSORAL DIAGNOSTIC 01/13/2021 EXC/DSTRJ LINGUAL TONSIL ANY METHOD SPX LIG/TRNSXJ FLP TUBE ABDL/VAG APPR UNI/BI Tubal ligation NEUROPLASTY &/TRANSPOS MEDIAN NRV CARPAL TUNNE 06/08/2011 Carpal tunnel decomp, right PAST SURGICAL HISTORY OF 2006 removal growth between toes =left REVISE MEDIAN N/CARPAL TUNNEL SURG 06/28/2013 left CTR SALPINGO-OOPHORECTOMY COMPL/PRTL UNI/BI SPX 2003 Salpingo-oophorectomy SKIN BIOPSY HX TOTAL ABDOMINAL HYSTERECT W/WO RMVL TUBE OVARY 2003 Hysterectomy, ELLIOT VAGINAL HYSTERECTOMY ALLERGIES Patient has no known allergies. MEDICATIONS Current Outpatient Medications Medication Sig pravastatin (PRAVACHOL) 40 mg tablet Take 1 tablet by mouth once daily. lisinopril-hydroCHLOROthiazide (PRINZIDE,ZESTORETIC) 10-12.5 mg per tablet Take 1 tablet by mouth every morning. Blood Pressure Cuff - Home Use BLOOD PRESSURE CUFF FOR HOME USE. DX: LABILE BLOOD PRESSURE latanoprost (XALATAN) 0.005 % ophthalmic solution Use 1 Drop in both eyes daily at bedtime. TO AFFECTED EYE(S) Calcium Carbonate-Vitamin D2 (CALCIUM + D) 600 mg calcium- 200 unit ORAL Tab Take 1 tablet by mouthonce daily. omeprazole (PRILOSEC) 40 mg capsule Take 1 capsule by mouth once daily. (Patient not taking: Reported on 12/31/2021 ) famotidine (PEPCID) 20 mg tablet Take 1 tablet by mouth daily at bedtime. (Patient not taking: Reported on 12/31/2021 ) No current facility-administered medications for this visit. FAMILY HISTORY Problem Relation Age of Onset Heart Mother Diabetes Mother Cancer Mother UTERUS Diabetes Father Heart Father Cancer Maternal Grandmother UTERUS Colon Cancer Daughter Social History Tobacco Use Smoking status: Never Smoker Smokeless tobacco: Never Used Substance Use Topics Alcohol use: No Drug use: No EXAM: BP 146/68 Pulse 80 Resp 16 Wt 86.3 kg (190 lb 3.2 oz) SpO2 96% BMI 31.31 kg/m PHYSICAL EXAM: General Appearance: Well appearing, alert, in no acute distress, well-hydrated, well nourished.. Skin: Skin color, texture, turgor normal, no suspicious rashes or lesions. Dorsal aspect of the left hand with appx 1 cm pearly/papular area with central core. Head: Normocephalic, no masses, lesions, tenderness or abnormalities. Eyes: Anicteric sclera. Extraocular movements are intact. . Ears: External ears normal, canals clear, Normal TMs bilaterally. Oropharynx: Lips, mucosa, and tongue normal, teeth and gums normal, oropharynx normal. Neck: Supple, no adenopathy; thyroid symmetric Lungs: Lungs clear to auscultation. No wheezing, rhonchi, rales.. Heart: RRR without murmur, gallop, or rubs. No ectopy. Extremities: No deformities, edema, skin discoloration, clubbing or cyanosis. Good capillary refill. Neurologic: Gait normal. + tinels and phelans sign. ASSESSMENT/PLAN: 1. Hoarseness - ICD9: 784.42, ICD10: R49.0 (primary diagnosis) Worsening complains of hoarseness. Denies any postnasal drip/allergy symptoms. She does admit to GERD for which she stopped her medicine approximately a month ago. She is to go ahead and restart her PPI. She is encouraged to update provider in the next couple weeks if her symptoms improve with this. 2. Carpal tunnel syndrome, bilateral - ICD9: 354.0, ICD10: G56.03 - CONSULT TO ORTHOPAEDICS 3. Ear itching - ICD9: 698.9, ICD10: L29.9 - JYANZETB-TFCSJGSDS-NVJOOPTSH 3.5 MG/ML-10,000 UNIT/ML-1 % EAR SOLUTION 4. Skin lesion - ICD9: 709.9, ICD10: L98.9 She is known to Dr. Loco, dermatology. She is encouraged to reschedule with him. She think she has an appointment already scheduled with him next month. Discussed treatment plan and patient voices understanding. Patient's questions answered appropriately. Medications and potential side effects were discussed and patient voices understanding. Return to the office as scheduled or as needed for worsening/no improvement. Nina Marley APRN.[place] The patient indicates understanding of these issues and agrees with the plan. This note was partially generated using [employer] voice recognition system. Note was reviewed for accuracy. There may be minor misspellings or grammar miscues with [employer] voice recognition. documented in this encounterWilson [facility] Hospital07-14-2022 History of Present illness Narrative* Maria Alejandra Brizuela MA - 12/31/2021 3:54 PM EDT POPULATION HEALTH NAVIGATION OUTREACH Action/December 31, 2021 Spoke with patient. She has been scheduled with Nina Marley CNP on 01.04.2022 for her follow up. Thank you Pt identified by name and : YES, via phone Outreach Outcome/Action Spoke to patient or caregiver: Patient scheduled Did you use a PCP flex slot to schedule this appointment? No Reason for Outreach Community Monitoring [place] Payer: Payor: [employer] MEDICARE / Plan: [employer] MEDICARE PPO / Product Type: PPO / Care Gap Reviewed:: Follow-up appointment Reminder: Reminder note to check Health Maintenance for items below Health Maintenance items due: DTAP,TDAP,TD(1 - Tdap) due on 07/12/2009 SHINGRIX VACCINE(2 of 3) due on 06/20/2012 COVID-19 VACCINE(4 - Booster for Pfizer series) due on 08/08/2021 Message Sent to Practice: No Navigation Signature: Maria Alejandra Brizuela MA December 31, 2021 3:54 PM * Cece Brewer RN - 12/31/2021 3:21 PM EDT Images from the original note were not included. [facility] CDM Enrollment Provider Action/FYI: Community Monitoring PSS Pool: Please assist patient with scheduling a follow up appointment with PCP Dr Whitney to address worsening cough and hoarseness.* appointment. (looking for a sooner appointment than 04/21/22) Thank you Last Braulio Whitney MD visit 10/19/21 Next Braulio Whitney MD visit 04/21/22 Patient reports getting hoarse and coughing when talking - this occurred during our brief phone call. Worsening recently. Agreed to appointment with PCP. Patient has bilateral carpal tunnel - gets some relief with braces. Has stopped taking omeprazole -no GERD symptoms since stopping. Switched from tylenol to Aleve. Lives alone, supportive daughter checks on her throughout the day. Patient referred by: [facility] Sandrine Contact made with patient: Yes - Patient identified by name and . Discussed care with patient Chloe this is Cece Brewer RN and I am calling from Braulio Whitney MD office at the [facility]. I am a RN Pigment Processor with our [facility] Chronic Disease Management program. Braulio Whitney MD wanted me to reach out to help you manage your health at home. Our goal is to keep you well at home. We want to help you manage your chronic disease by providing a safety net of resources around you, getting you the care you need in a timely manner, and hopefully keep you out of the ED and hospital. I will send you a few questions once a week through your [employer] account. It will automaticallyshow up for you to complete. There are simple questions that will help us identify if you have any concerns or symptoms and I will call you to help get what you need. We will be able to connect you, review your symptoms, do an on demand visit, or communicate with Braulio Whitney MD if needed. I am going to sign you up for the program now. Enrollment Questions: Let's get you enrolled in the program. Yes, Do you have regular access to a computer/smartphone? No, Are you offering patient a biweekly phone call? yes/no: Yes. Goal Setting: I would like to take some time today to discuss your personal health goals. Yes, patient has goals. Capture the goal the patient wants to accomplish: Active Goals - Current status as of 12/31/2021 at 3:42 PM Patient Stated To stay active - doing house and yard work (pt-stated) . Does the goal align with programs offered at the [facility]? Yes Chronic Disease Managementpatient goals yes: Exercise Most people know what to do to become healthier, yet struggle to put it into action on their own.Itcan be hard to maintain a healthy lifestyle, especially when life is so stressful. Can we connect you with a [facility] Health Security Ambassador to find a program that could help you meet your goals? No Closing: Patient accepts telephonic outreach Thank you for your time today. I am excited to work together inmanaging your health! I will check back within in two weeks to see how things are going. If questions or concerns arise between phone calls, please reach out to your PCP s office. (Place in active status for [facility] and place name in care team and update next patient outreach data to next business d ay two weeks from today s date) documented in this encounterWilson Memorial Hospital05-02-2022 History of Past illness Narrative* Problem Noted Date Resolved Date Skin cancer 10/19/2021 10/19/2021 Overview: Sees Dr. Loco. Unsure of type. Non-cardiac chest pain 04/29/2020 1 Reactive depression 07/31/2018 01/05/2019 Impingement syndrome of left shoulder 08/11/2015 07/31/2018 Essential hypertension, benign 04/22/2011 0 01/05/2019 Grief reaction 01/19/2011 02/09/2018 GORDO-inhibitor cough 07/27/2010 04/22/2011 Hip pain 08/11/2009 07/31/2018 Unspecified essential hypertension 07/01/2008 04/22/2011 Mastalgia 03/15/2008 10/31/2020 Symptomatic menopausal or female climacteric sta shannan 09/26/2007 04/22/2011 Urgency of urination 09/26/2007 08/11/2009 Routine general medical exam ination at a health care facility 02/07/2007 04/22/2011 PAIN FOOT 11/25/2006 08/11/2009 Myalgia and myositis, unspecified 03/17/2001 04/22/2011 Backache, unspecified 07/31/2018 Nonspecific abnormal electrocardiogram (ECG) (EK G) 10/31/2020 Overview: PAC documented as of this encounter (statuses as of 10/19/2021) [facility] History of Past illness Narrative* Problem Noted Date Resolved Date Skin cancer 10/19/2021 10/19/2021 Overview: Sees Dr. Loco. Unsure of type. Non-cardiac chest pain 04/29/2020 Reactive depression 07/31/2018 01/05/2019 Impingement syndrome of left shoulder 08/11/2015 07/31/2018 Essential hypertension, benign 04/22/2011 0 01/05/2019 Grief reaction 01/19/2011 02/09/2018 GORDO-inhibitor cough 07/27/2010 04/22/2011 Hip pain 08/11/2009 07/31/2018 Unspecified essential hypertension 07/01/2008 04/22/2011 Mastalgia 03/15/2008 10/31/2020 Symptomatic menopausal or female climacteric sta shannan 09/26/2007 04/22/2011 Urgency of urination 09/26/2007 08/11/2009 Routine general medical exam ination at a health care facility 02/07/2007 04/22/2011 PAIN FOOT 11/25/2006 08/11/2009 Myalgia and myositis, unspecified 03/17/2001 04/22/2011 Backache, unspecified 07/31/2018 Nonspecific abnormal electrocardiogram (ECG) (EK G) 10/31/2020 Overview: PAC documented as of this encounter (statuses as of 12/31/2021) [facility] of Past illness Narrative* Problem Noted Date Resolved Date Skin cancer 10/19/2021 10/19/2021 Overview: Sees Dr. Loco. Unsure of type. Non-cardiac chest pain 04/29/2020 1 Reactive depression 07/31/2018 01/05/2019 Impingement syndrome of left shoulder 08/11/2015 07/31/2018 Essential hypertension, benign 04/22/2011 0 01/05/2019 Grief reaction 01/19/2011 02/09/2018 GORDO-inhibitor cough 07/27/2010 04/22/2011 Hip pain 08/11/2009 07/31/2018 Unspecified essential hypertension 07/01/2008 04/22/2011 Mastalgia 03/15/2008 10/31/2020 Symptomatic menopausal or female climacteric sta shannan 09/26/2007 04/22/2011 Urgency of urination 09/26/2007 08/11/2009 Routine general medical exam ination at a health care facility 02/07/2007 04/22/2011 PAIN FOOT 11/25/2006 08/11/2009 Myalgia and myositis, unspecified 03/17/2001 04/22/2011 Backache, unspecified 07/31/2018 Nonspecific abnormal electrocardiogram (ECG) (EK G) 10/31/2020 Overview: PAC documented as of this encounter (statuses as of 01/04/2022) [facility] of Past illness Narrative* Problem Noted Date Resolved Date Skin cancer 10/19/2021 10/19/2021 Overview: Sees Dr. Loco. Unsure of type. Non-cardiac chest pain 04/29/2020 1 Reactive depression 07/31/2018 01/05/2019 Impingement syndrome of left shoulder 08/11/2015 07/31/2018 Essential hypertension, benign 04/22/2011 0 01/05/2019 Grief reaction 01/19/2011 02/09/2018 GORDO-inhibitor cough 07/27/2010 04/22/2011 Hip pain 08/11/2009 07/31/2018 Unspecified essential hypertension 07/01/2008 04/22/2011 Mastalgia 03/15/2008 10/31/2020 Symptomatic menopausal or female climacteric sta shannan 09/26/2007 04/22/2011 Urgency of urination 09/26/2007 08/11/2009 Routine general medical exam ination at a health care facility 02/07/2007 04/22/2011 PAIN FOOT 11/25/2006 08/11/2009 Myalgia and myositis, unspecified 03/17/2001 04/22/2011 Backache, unspecified 07/31/2018 Nonspecific abnormal electrocardiogram (ECG) (EK G) 10/31/2020 Overview: PAC documented as of this encounter (statuses as of 01/21/2022) [facility] of Past illness Narrative* Problem Noted Date Resolved Date Skin cancer 10/19/2021 10/19/2021 Overview: Sees Dr. Loco. Unsure of type. Non-cardiac chest pain 04/29/2020 Reactive depression 07/31/2018 01/05/2019 Impingement syndrome of left shoulder 08/11/2015 07/31/2018 Essential hypertension, benign 04/22/2011 0 01/05/2019 Grief reaction 01/19/2011 02/09/2018 GORDO-inhibitor cough 07/27/2010 04/22/2011 Hip pain 08/11/2009 07/31/2018 Unspecified essential hypertension 07/01/2008 04/22/2011 Mastalgia 03/15/2008 10/31/2020 Symptomatic menopausal or female climacteric sta shannan 09/26/2007 04/22/2011 Urgency of urination 09/26/2007 08/11/2009 Routine general medical exam ination at a health care facility 02/07/2007 04/22/2011 PAIN FOOT 11/25/2006 08/11/2009 Myalgia and myositis, unspecified 03/17/2001 04/22/2011 Backache, unspecified 07/31/2018 Nonspecific abnormal electrocardiogram (ECG) (EK G) 10/31/2020 Overview: PAC documented as of this encounter (statuses as of 01/22/2022) [facility] of [facility] Narrative* Problem Noted Date Resolved Date Skin cancer 10/19/2021 10/19/2021 Overview: Sees Dr. Loco. Unsure of type. Non-cardiac chest pain 04/29/2020 1 Reactive depression 07/31/2018 01/05/2019 Impingement syndrome of left shoulder 08/11/2015 07/31/2018 Essential hypertension, benign 04/22/2011 0 01/05/2019 Grief reaction 01/19/2011 02/09/2018 GORDO-inhibitor cough 07/27/2010 04/22/2011 Hip pain 08/11/2009 07/31/2018 Unspecified essential hypertension 07/01/2008 04/22/2011 Mastalgia 03/15/2008 10/31/2020 Symptomatic menopausal or female climacteric sta shannan 09/26/2007 04/22/2011 Urgency of urination 09/26/2007 08/11/2009 Routine general medical exam ination at a health care facility 02/07/2007 04/22/2011 PAIN FOOT 11/25/2006 08/11/2009 Myalgia and myositis, unspecified 03/17/2001 04/22/2011 Backache, unspecified 07/31/2018 Nonspecific abnormal electrocardiogram (ECG) (EK G) 10/31/2020 Overview: PAC documented as of this encounter (statuses as of 01/26/2022) [facility]05-[facility]22 History of Past illness Narrative* Problem Noted Date Resolved Date Skin cancer 10/19/2021 10/19/2021 Overview: Sees Dr. Loco. Unsure of type. Non-cardiac chest pain 04/29/2020 1 Reactive depression 07/31/2018 01/05/2019 Impingement syndrome of left shoulder 08/11/2015 07/31/2018 Essential hypertension, benign 04/22/2011 0 01/05/2019 Grief reaction 01/19/2011 02/09/2018 GORDO-inhibitor cough 07/27/2010 04/22/2011 Hip pain 08/11/2009 07/31/2018 Unspecified essential hypertension 07/01/2008 04/22/2011 Mastalgia 03/15/2008 10/31/2020 Symptomatic menopausal or female climacteric sta shannan 09/26/2007 04/22/2011 Urgency of urination 09/26/2007 08/11/2009 Routine general medical exam ination at a health care facility 02/07/2007 04/22/2011 PAIN FOOT 11/25/2006 08/11/2009 Myalgia and myositis, unspecified 03/17/2001 04/22/2011 Backache, unspecified 07/31/2018 Nonspecific abnormal electrocardiogram (ECG) (EK G) 10/31/2020 Overview: PAC documented as of this encounter (statuses as of 01/27/2022) [facility] History of Past illness Narrative* Problem Noted Date Resolved Date Skin cancer 10/19/2021 10/19/2021 Overview: Sees Dr. Loco. Unsure of type. Non-cardiac chest pain 04/29/2020 Reactive depression 07/31/2018 01/05/2019 Impingement syndrome of left shoulder 08/11/2015 07/31/2018 Essential hypertension, benign 04/22/2011 0 01/05/2019 Grief reaction 01/19/2011 02/09/2018 GORDO-inhibitor cough 07/27/2010 04/22/2011 Hip pain 08/11/2009 07/31/2018 Unspecified essential hypertension 07/01/2008 04/22/2011 Mastalgia 03/15/2008 10/31/2020 Symptomatic menopausal or female climacteric sta shannan 09/26/2007 04/22/2011 Urgency of urination 09/26/2007 08/11/2009 Routine general medical exam ination at a health care facility 02/07/2007 04/22/2011 PAIN FOOT 11/25/2006 08/11/2009 Myalgia and myositis, unspecified 03/17/2001 04/22/2011 Backache, unspecified 07/31/2018 Nonspecific abnormal electrocardiogram (ECG) (EK G) 10/31/2020 Overview: PAC documented as of this encounter (statuses as of 01/30/2022) [facility] History of Past illness Narrative* Problem Noted Date Resolved Date Skin cancer 10/19/2021 10/19/2021 Overview: Sees Dr. Loco. Unsure of type. Non-cardiac chest pain 04/29/2020 1 Reactive depression 07/31/2018 01/05/2019 Impingement syndrome of left shoulder 08/11/2015 07/31/2018 Essential hypertension, benign 04/22/2011 0 01/05/2019 Grief reaction 01/19/2011 02/09/2018 GORDO-inhibitor cough 07/27/2010 04/22/2011 Hip pain 08/11/2009 07/31/2018 Unspecified essential hypertension 07/01/2008 04/22/2011 Mastalgia 03/15/2008 10/31/2020 Symptomatic menopausal or female climacteric sta shannan 09/26/2007 04/22/2011 Urgency of urination 09/26/2007 08/11/2009 Routine general medical exam ination at a health care facility 02/07/2007 04/22/2011 PAIN FOOT 11/25/2006 08/11/2009 Myalgia and myositis, unspecified 03/17/2001 04/22/2011 Backache, unspecified 07/31/2018 Nonspecific abnormal electrocardiogram (ECG) (EK G) 10/31/2020 Overview: PAC documented as of this encounter (statuses as of 02/01/2022) [facility] History of Past illness Narrative* Problem Noted Date Resolved Date Skin cancer 10/19/2021 10/19/2021 Overview: Sees Dr. Loco. Unsure of type. Non-cardiac chest pain 04/29/2020 1 Reactive depression 07/31/2018 01/05/2019 Impingement syndrome of left shoulder 08/11/2015 07/31/2018 Essential hypertension, benign 04/22/2011 0 01/05/2019 Grief reaction 01/19/2011 02/09/2018 GORDO-inhibitor cough 07/27/2010 04/22/2011 Hip pain 08/11/2009 07/31/2018 Unspecified essential hypertension 07/01/2008 04/22/2011 Mastalgia 03/15/2008 10/31/2020 Symptomatic menopausal or female climacteric sta shannan 09/26/2007 04/22/2011 Urgency of urination 09/26/2007 08/11/2009 Routine general medical exam ination at a health care facility 02/07/2007 04/22/2011 PAIN FOOT 11/25/2006 08/11/2009 Myalgia and myositis, unspecified 03/17/2001 04/22/2011 Backache, unspecified 07/31/2018 Nonspecific abnormal electrocardiogram (ECG) (EK G) 10/31/2020 Overview: PAC documented as of this encounter (statuses as of 02/08/2022) [facility] History of Past illness Narrative* Problem Noted Date Resolved Date Skin cancer 10/19/2021 10/19/2021 Overview: Sees Dr. Loco. Unsure of type. Non-cardiac chest pain 04/29/2020 1 Reactive depression 07/31/2018 01/05/2019 Impingement syndrome of left shoulder 08/11/2015 07/31/2018 Essential hypertension, benign 04/22/2011 0 01/05/2019 Grief reaction 01/19/2011 02/09/2018 GORDO-inhibitor cough 07/27/2010 04/22/2011 Hip pain 08/11/2009 07/31/2018 Unspecified essential hypertension 07/01/2008 04/22/2011 Mastalgia 03/15/2008 10/31/2020 Symptomatic menopausal or female climacteric sta shannan 09/26/2007 04/22/2011 Urgency of urination 09/26/2007 08/11/2009 Routine general medical exam ination at a health care facility 02/07/2007 04/22/2011 PAIN FOOT 11/25/2006 08/11/2009 Myalgia and myositis, unspecified 03/17/2001 04/22/2011 Backache, unspecified 07/31/2018 Nonspecific abnormal electrocardiogram (ECG) (EK G) 10/31/2020 Overview: PAC documented as of this encounter (statuses as of 02/10/2022) [facility] History of Past illness Narrative* Problem Noted Date Resolved Date Skin cancer 10/19/2021 10/19/2021 Overview: Sees Dr. Loco. Unsure of type. Non-cardiac chest pain 04/29/2020 1 Reactive depression 07/31/2018 01/05/2019 Impingement syndrome of left shoulder 08/11/2015 07/31/2018 Essential hypertension, benign 04/22/2011 0 01/05/2019 Grief reaction 01/19/2011 02/09/2018 GORDO-inhibitor cough 07/27/2010 04/22/2011 Hip pain 08/11/2009 07/31/2018 Unspecified essential hypertension 07/01/2008 04/22/2011 Mastalgia 03/15/2008 10/31/2020 Symptomatic menopausal or female climacteric sta shannan 09/26/2007 04/22/2011 Urgency of urination 09/26/2007 08/11/2009 Routine general medical exam ination at a health care facility 02/07/2007 04/22/2011 PAIN FOOT 11/25/2006 08/11/2009 Myalgia and myositis, unspecified 03/17/2001 04/22/2011 Backache, unspecified 07/31/2018 Nonspecific abnormal electrocardiogram (ECG) (EK G) 10/31/2020 Overview: PAC documented as of this encounter (statuses as of 02/12/2022) [facility] History of Past illness Narrative* Problem Noted Date Resolved Date Skin cancer 10/19/2021 10/19/2021 Overview: Sees Dr. Loco. Unsure of type. Non-cardiac chest pain 04/29/2020 1 Reactive depression 07/31/2018 01/05/2019 Impingement syndrome of left shoulder 08/11/2015 07/31/2018 Essential hypertension, benign 04/22/2011 0 01/05/2019 Grief reaction 01/19/2011 02/09/2018 GORDO-inhibitor cough 07/27/2010 04/22/2011 Hip pain 08/11/2009 07/31/2018 Unspecified essential hypertension 07/01/2008 04/22/2011 Mastalgia 03/15/2008 10/31/2020 Symptomatic menopausal or female climacteric sta shannan 09/26/2007 04/22/2011 Urgency of urination 09/26/2007 08/11/2009 Routine general medical exam ination at a health care facility 02/07/2007 04/22/2011 PAIN FOOT 11/25/2006 08/11/2009 Myalgia and myositis, unspecified 03/17/2001 04/22/2011 Backache, unspecified 07/31/2018 Nonspecific abnormal electrocardiogram (ECG) (EK G) 10/31/2020 Overview: PAC documented as of this encounter (statuses as of 02/17/2022) [facility] History of Past illness Narrative* Problem Noted Date Resolved Date Skin cancer 10/19/2021 10/19/2021 Overview: Sees Dr. Loco. Unsure of type. Non-cardiac chest pain 04/29/2020 Reactive depression 07/31/2018 01/05/2019 Impingement syndrome of left shoulder 08/11/2015 07/31/2018 Essential hypertension, benign 04/22/2011 0 01/05/2019 Grief reaction 01/19/2011 02/09/2018 GORDO-inhibitor cough 07/27/2010 04/22/2011 Hip pain 08/11/2009 07/31/2018 Unspecified essential hypertension 07/01/2008 04/22/2011 Mastalgia 03/15/2008 10/31/2020 Symptomatic menopausal or female climacteric sta shannan 09/26/2007 04/22/2011 Urgency of urination 09/26/2007 08/11/2009 Routine general medical exam ination at a health care facility 02/07/2007 04/22/2011 PAIN FOOT 11/25/2006 08/11/2009 Myalgia and myositis, unspecified 03/17/2001 04/22/2011 Backache, unspecified 07/31/2018 Nonspecific abnormal electrocardiogram (ECG) (EK G) 10/31/2020 Overview: PAC documented as of this encounter (statuses as of 02/18/2022) [facility] History of Past illness Narrative* Problem Noted Date Resolved Date Skin cancer 10/19/2021 10/19/2021 Overview: Sees Dr. Loco. Unsure of type. Non-cardiac chest pain 04/29/2020 1 Reactive depression 07/31/2018 01/05/2019 Impingement syndrome of left shoulder 08/11/2015 07/31/2018 Essential hypertension, benign 04/22/2011 0 01/05/2019 Grief reaction 01/19/2011 02/09/2018 GORDO-inhibitor cough 07/27/2010 04/22/2011 Hip pain 08/11/2009 07/31/2018 Unspecified essential hypertension 07/01/2008 04/22/2011 Mastalgia 03/15/2008 10/31/2020 Symptomatic menopausal or female climacteric sta shannan 09/26/2007 04/22/2011 Urgency of urination 09/26/2007 08/11/2009 Routine general medical exam ination at a health care facility 02/07/2007 04/22/2011 PAIN FOOT 11/25/2006 08/11/2009 Myalgia and myositis, unspecified 03/17/2001 04/22/2011 Backache, unspecified 07/31/2018 Nonspecific abnormal electrocardiogram (ECG) (EK G) 10/31/2020 Overview: PAC documented as of this encounter (statuses as of 03/10/2022) [facility] History of Past illness Narrative* Problem Noted Date Resolved Date Skin cancer 10/19/2021 10/19/2021 Overview: Sees Dr. Loco. Unsure of type. Non-cardiac chest pain 04/29/2020 1 Reactive depression 07/31/2018 01/05/2019 Impingement syndrome of left shoulder 08/11/2015 07/31/2018 Essential hypertension, benign 04/22/2011 0 01/05/2019 Grief reaction 01/19/2011 02/09/2018 GORDO-inhibitor cough 07/27/2010 04/22/2011 Hip pain 08/11/2009 07/31/2018 Unspecified essential hypertension 07/01/2008 04/22/2011 Mastalgia 03/15/2008 10/31/2020 Symptomatic menopausal or female climacteric sta shannan 09/26/2007 04/22/2011 Urgency of urination 09/26/2007 08/11/2009 Routine general medical exam ination at a health care facility 02/07/2007 04/22/2011 PAIN FOOT 11/25/2006 08/11/2009 Myalgia and myositis, unspecified 03/17/2001 04/22/2011 Backache, unspecified 07/31/2018 Nonspecific abnormal electrocardiogram (ECG) (EK G) 10/31/2020 Overview: PAC documented as of this encounter (statuses as of 03/11/2022) [facility] History of Past illness Narrative* Problem Noted Date Resolved Date Skin cancer 10/19/2021 10/19/2021 Overview: Sees Dr. Loco. Unsure of type. Non-cardiac chest pain 04/29/2020 Reactive depression 07/31/2018 01/05/2019 Impingement syndrome of left shoulder 08/11/2015 07/31/2018 Essential hypertension, benign 04/22/2011 0 01/05/2019 Grief reaction 01/19/2011 02/09/2018 GORDO-inhibitor cough 07/27/2010 04/22/2011 Hip pain 08/11/2009 07/31/2018 Unspecified essential hypertension 07/01/2008 04/22/2011 Mastalgia 03/15/2008 10/31/2020 Symptomatic menopausal or female climacteric sta shannan 09/26/2007 04/22/2011 Urgency of urination 09/26/2007 08/11/2009 Routine general medical exam ination at a health care facility 02/07/2007 04/22/2011 PAIN FOOT 11/25/2006 08/11/2009 Myalgia and myositis, unspecified 03/17/2001 04/22/2011 Backache, unspecified 07/31/2018 Nonspecific abnormal electrocardiogram (ECG) (EK G) 10/31/2020 Overview: PAC documented as of this encounter (statuses as of 04/08/2022) [facility] History of Past illness Narrative* Problem Noted Date Resolved Date Skin cancer 10/19/2021 10/19/2021 Overview: Sees Dr. Loco. Unsure of type. Non-cardiac chest pain 04/29/2020 1 Reactive depression 07/31/2018 01/05/2019 Impingement syndrome of left shoulder 08/11/2015 07/31/2018 Essential hypertension, benign 04/22/2011 0 01/05/2019 Grief reaction 01/19/2011 02/09/2018 GORDO-inhibitor cough 07/27/2010 04/22/2011 Hip pain 08/11/2009 07/31/2018 Unspecified essential hypertension 07/01/2008 04/22/2011 Mastalgia 03/15/2008 10/31/2020 Symptomatic menopausal or female climacteric sta shannan 09/26/2007 04/22/2011 Urgency of urination 09/26/2007 08/11/2009 Routine general medical exam ination at a health care facility 02/07/2007 04/22/2011 PAIN FOOT 11/25/2006 08/11/2009 Myalgia and myositis, unspecified 03/17/2001 04/22/2011 Backache, unspecified 07/31/2018 Nonspecific abnormal electrocardiogram (ECG) (EK G) 10/31/2020 Overview: PAC documented as of this encounter (statuses as of 05/10/2022) [facility] History of Past illness Narrative* Problem Noted Date Resolved Date Skin cancer 10/19/2021 10/19/2021 Overview: Sees Dr. Loco. Unsure of type. Non-cardiac chest pain 04/29/2020 1 Reactive depression 07/31/2018 01/05/2019 Impingement syndrome of left shoulder 08/11/2015 07/31/2018 Essential hypertension, benign 04/22/2011 0 01/05/2019 Grief reaction 01/19/2011 02/09/2018 GORDO-inhibitor cough 07/27/2010 04/22/2011 Hip pain 08/11/2009 07/31/2018 Unspecified essential hypertension 07/01/2008 04/22/2011 Mastalgia 03/15/2008 10/31/2020 Symptomatic menopausal or female climacteric sta shannan 09/26/2007 04/22/2011 Urgency of urination 09/26/2007 08/11/2009 Routine general medical exam ination at a health care facility 02/07/2007 04/22/2011 PAIN FOOT 11/25/2006 08/11/2009 Myalgia and myositis, unspecified 03/17/2001 04/22/2011 Backache, unspecified 07/31/2018 Nonspecific abnormal electrocardiogram (ECG) (EK G) 10/31/2020 Overview: PAC documented as of this encounter (statuses as of 06/07/2022) [facility] History of Past illness Narrative* Problem Noted Date Resolved Date Skin cancer 10/19/2021 10/19/2021 Overview: Sees Dr. Loco. Unsure of type. Non-cardiac chest pain 04/29/2020 1 Reactive depression 07/31/2018 01/05/2019 Impingement syndrome of left shoulder 08/11/2015 07/31/2018 Essential hypertension, benign 04/22/2011 0 01/05/2019 Grief reaction 01/19/2011 02/09/2018 GORDO-inhibitor cough 07/27/2010 04/22/2011 Hip pain 08/11/2009 07/31/2018 Unspecified essential hypertension 07/01/2008 04/22/2011 Mastalgia 03/15/2008 10/31/2020 Symptomatic menopausal or female climacteric sta shannan 09/26/2007 04/22/2011 Urgency of urination 09/26/2007 08/11/2009 Routine general medical exam ination at a health care facility 02/07/2007 04/22/2011 PAIN FOOT 11/25/2006 08/11/2009 Myalgia and myositis, unspecified 03/17/2001 04/22/2011 Backache, unspecified 07/31/2018 Nonspecific abnormal electrocardiogram (ECG) (EK G) 10/31/2020 Overview: PAC documented as of this encounter (statuses as of 06/09/2022) [facility] History of Past illness Narrative* Problem Noted Date Resolved Date Skin cancer 10/19/2021 10/19/2021 Overview: Sees Dr. Loco. Unsure of type. Non-cardiac chest pain 04/29/2020 1 Reactive depression 07/31/2018 01/05/2019 Impingement syndrome of left shoulder 08/11/2015 07/31/2018 Essential hypertension, benign 04/22/2011 0 01/05/2019 Grief reaction 01/19/2011 02/09/2018 GORDO-inhibitor cough 07/27/2010 04/22/2011 Hip pain 08/11/2009 07/31/2018 Unspecified essential hypertension 07/01/2008 04/22/2011 Mastalgia 03/15/2008 10/31/2020 Symptomatic menopausal or female climacteric sta shannan 09/26/2007 04/22/2011 Urgency of urination 09/26/2007 08/11/2009 Routine general medical exam ination at a health care facility 02/07/2007 04/22/2011 PAIN FOOT 11/25/2006 08/11/2009 Myalgia and myositis, unspecified 03/17/2001 04/22/2011 Backache, unspecified 07/31/2018 Nonspecific abnormal electrocardiogram (ECG) (EK G) 10/31/2020 Overview: PAC documented as of this encounter (statuses as of 08/04/2022) [facility] History of Past illness Narrative* Problem Noted Date Resolved Date Skin cancer 10/19/2021 10/19/2021 Overview: Sees Dr. Loco. Unsure of type. Non-cardiac chest pain 04/29/2020 1 Reactive depression 07/31/2018 01/05/2019 Impingement syndrome of left shoulder 08/11/2015 07/31/2018 Essential hypertension, benign 04/22/2011 0 01/05/2019 Grief reaction 01/19/2011 02/09/2018 GORDO-inhibitor cough 07/27/2010 04/22/2011 Hip pain 08/11/2009 07/31/2018 Unspecified essential hypertension 07/01/2008 04/22/2011 Mastalgia 03/15/2008 10/31/2020 Symptomatic menopausal or female climacteric sta shannan 09/26/2007 04/22/2011 Urgency of urination 09/26/2007 08/11/2009 Routine general medical exam ination at a health care facility 02/07/2007 04/22/2011 PAIN FOOT 11/25/2006 08/11/2009 Myalgia and myositis, unspecified 03/17/2001 04/22/2011 Backache, unspecified 07/31/2018 Nonspecific abnormal electrocardiogram (ECG) (EK G) 10/31/2020 Overview: PAC documented as of this encounter (statuses as of 09/08/2022) [facility] History of Past illness Narrative* Problem Noted Date Resolved Date Skin cancer 10/19/2021 10/19/2021 Overview: Sees Dr. Loco. Unsure of type. Non-cardiac chest pain 04/29/2020 1 Reactive depression 07/31/2018 01/05/2019 Impingement syndrome of left shoulder 08/11/2015 07/31/2018 Essential hypertension, benign 04/22/2011 0 01/05/2019 Grief reaction 01/19/2011 02/09/2018 GORDO-inhibitor cough 07/27/2010 04/22/2011 Hip pain 08/11/2009 07/31/2018 Unspecified essential hypertension 07/01/2008 04/22/2011 Mastalgia 03/15/2008 10/31/2020 Symptomatic menopausal or female climacteric sta shannan 09/26/2007 04/22/2011 Urgency of urination 09/26/2007 08/11/2009 Routine general medical exam ination at a health care facility 02/07/2007 04/22/2011 PAIN FOOT 11/25/2006 08/11/2009 Myalgia and myositis, unspecified 03/17/2001 04/22/2011 Backache, unspecified 07/31/2018 Nonspecific abnormal electrocardiogram (ECG) (EK G) 10/31/2020 Overview: PAC documented as of this encounter (statuses as of 09/10/2022) [facility] History of Past illness Narrative* Problem Noted Date Resolved Date Skin cancer 10/19/2021 10/19/2021 Overview: Sees Dr. Loco. Unsure of type. Non-cardiac chest pain 04/29/2020 1 Reactive depression 07/31/2018 01/05/2019 Impingement syndrome of left shoulder 08/11/2015 07/31/2018 Essential hypertension, benign 04/22/2011 0 01/05/2019 Grief reaction 01/19/2011 02/09/2018 GORDO-inhibitor cough 07/27/2010 04/22/2011 Hip pain 08/11/2009 07/31/2018 Unspecified essential hypertension 07/01/2008 04/22/2011 Mastalgia 03/15/2008 10/31/2020 Symptomatic menopausal or female climacteric sta shannan 09/26/2007 04/22/2011 Urgency of urination 09/26/2007 08/11/2009 Routine general medical exam ination at a health care facility 02/07/2007 04/22/2011 PAIN FOOT 11/25/2006 08/11/2009 Myalgia and myositis, unspecified 03/17/2001 04/22/2011 Backache, unspecified 07/31/2018 Nonspecific abnormal electrocardiogram (ECG) (EK G) 10/31/2020 Overview: PAC documented as of this encounter (statuses as of 10/12/2022) [facility] History of Past illness Narrative* Problem Noted Date Diagnosed Date Resolved Date Skin cancer 10/19/2021 10/19/2021 Overview: Sees Dr. Loco. Unsure of type. Non-cardiac chest pain 04/29/202010/31 Reactive depression 07/31/2018 01/06/20 19 Impingement syndrome of left shoulder 08/11/2015 07/31/2018 Essential hypertension, benign 04/22/2011 01/05/2019 Grief reaction 01/19/2011 02/09/2018 GORDO-inhibitor cough 07/27/2010 04/22/20 11 Hip pain 08/11/2009 07/31/2018 Unspecified essential hypertension 07/01/2008 04/22/2011 Mastalgia 03/15/2008 10/31/2020 Symptomatic menopausal or fe male climacteric states 09/26/2007 04/22/2011 Urgency of urination 09/26/2007 010 Routine general medical exam ination at a health care facility 02/07/2007 04/22/2011 PAIN FOOT 11/25/2006 08/11/2009 Myalgia and myositis, unspecified 03/17/2001 04/22/2011 Backache, unspecified 2018 Nonspecific abnormal electro cardiogram (ECG) (EKG) 10/31/2020 Overview: PAC documented as of this encounter (statuses as of 01/06/2023) [facility] History of Past illness Narrative* Problem Noted Date Diagnosed Date Resolved Date Skin cancer 10/19/2021 10/19/2021 Overview: Sees Dr. Loco. Unsure of type. Non-cardiac chest pain 04/29/202010/31 Reactive depression 07/31/2018 01/06/20 19 Impingement syndrome of left shoulder 08/11/2015 07/31/2018 Essential hypertension, benign 04/22/2011 01/05/2019 Grief reaction 01/19/2011 02/09/2018 GORDO-inhibitor cough 07/27/2010 04/22/20 11 Hip pain 08/11/2009 07/31/2018 Unspecified essential hypertension 07/01/2008 04/22/2011 Mastalgia 03/15/2008 10/31/2020 Symptomatic menopausal or fe male climacteric states 09/26/2007 04/22/2011 Urgency of urination 09/26/2007 010 Routine general medical exam ination at a health care facility 02/07/2007 04/22/2011 PAIN FOOT 11/25/2006 08/11/2009 Myalgia and myositis, unspecified 03/17/2001 04/22/2011 Backache, unspecified 2018 Nonspecific abnormal electro cardiogram (ECG) (EKG) 10/31/2020 Overview: PAC documented as of this encounter (statuses as of 02/03/2023) [facility] History of Past illness Narrative* Problem Noted Date Diagnosed Date Resolved Date Skin cancer 10/19/2021 10/19/2021 Overview: Sees Dr. Loco. Unsure of type. Non-cardiac chest pain 04/29/202010/31 Reactive depression 07/31/2018 01/06/20 19 Impingement syndrome of left shoulder 08/11/2015 07/31/2018 Essential hypertension, benign 04/22/2011 01/05/2019 Grief reaction 01/19/2011 02/09/2018 GORDO-inhibitor cough 07/27/2010 04/22/20 11 Hip pain 08/11/2009 07/31/2018 Unspecified essential hypertension 07/01/2008 04/22/2011 Mastalgia 03/15/2008 10/31/2020 Symptomatic menopausal or fe male climacteric states 09/26/2007 04/22/2011 Urgency of urination 09/26/2007 010 Routine general medical exam ination at a health care facility 02/07/2007 04/22/2011 PAIN FOOT 11/25/2006 08/11/2009 Myalgia and myositis, unspecified 03/17/2001 04/22/2011 Backache, unspecified 2018 Nonspecific abnormal electro cardiogram (ECG) (EKG) 10/31/2020 Overview: PAC documented as of this encounter (statuses as of 02/04/2023) [facility] History of Past illness Narrative* Problem Noted Date Diagnosed Date Resolved Date Skin cancer 10/19/2021 10/19/2021 Overview: Sees Dr. Loco. Unsure of type. Non-cardiac chest pain 04/29/202010/31 Reactive depression 07/31/2018 01/06/20 19 Impingement syndrome of left shoulder 08/11/2015 07/31/2018 Essential hypertension, benign 04/22/2011 01/05/2019 Grief reaction 01/19/2011 02/09/2018 GORDO-inhibitor cough 07/27/2010 04/22/20 11 Hip pain 08/11/2009 07/31/2018 Unspecified essential hypertension 07/01/2008 04/22/2011 Mastalgia 03/15/2008 10/31/2020 Symptomatic menopausal or fe male climacteric states 09/26/2007 04/22/2011 Urgency of urination 09/26/2007 010 Routine general medical exam ination at a health care facility 02/07/2007 04/22/2011 PAIN FOOT 11/25/2006 08/11/2009 Myalgia and myositis, unspecified 03/17/2001 04/22/2011 Backache, unspecified 2018 Nonspecific abnormal electro cardiogram (ECG) (EKG) 10/31/2020 Overview: PAC documented as of this encounter (statuses as of 02/05/2023) [facility] History of Past illness Narrative* Problem Noted Date Diagnosed Date Resolved Date Skin cancer 10/19/2021 10/19/2021 Overview: Sees Dr. Loco. Unsure of type. Non-cardiac chest pain 04/29/202010/31 Reactive depression 07/31/2018 01/06/20 19 Impingement syndrome of left shoulder 08/11/2015 07/31/2018 Essential hypertension, benign 04/22/2011 01/05/2019 Grief reaction 01/19/2011 02/09/2018 GORDO-inhibitor cough 07/27/2010 04/22/20 11 Hip pain 08/11/2009 07/31/2018 Unspecified essential hypertension 07/01/2008 04/22/2011 Mastalgia 03/15/2008 10/31/2020 Symptomatic menopausal or fe male climacteric states 09/26/2007 04/22/2011 Urgency of urination 09/26/2007 010 Routine general medical exam ination at a health care facility 02/07/2007 04/22/2011 PAIN FOOT 11/25/2006 08/11/2009 Myalgia and myositis, unspecified 03/17/2001 04/22/2011 Backache, unspecified 2018 Nonspecific abnormal electro cardiogram (ECG) (EKG) 10/31/2020 Overview: PAC documented as of this encounter (statuses as of 02/09/2023) [facility]05-02[facility] History of Past illness Narrative* Problem Noted Date Diagnosed Date Resolved Date Skin cancer 10/19/2021 10/19/2021 Overview: Sees Dr. Loco. Unsure of type. Non-cardiac chest pain 04/29/202010/31 Reactive depression 07/31/2018 01/06/20 19 Impingement syndrome of left shoulder 08/11/2015 07/31/2018 Essential hypertension, benign 04/22/2011 01/05/2019 Grief reaction 01/19/2011 02/09/2018 GORDO-inhibitor cough 07/27/2010 04/22/20 11 Hip pain 08/11/2009 07/31/2018 Unspecified essential hypertension 07/01/2008 04/22/2011 Mastalgia 03/15/2008 10/31/2020 Symptomatic menopausal or fe male climacteric states 09/26/2007 04/22/2011 Urgency of urination 09/26/2007 010 Routine general medical exam ination at a health care facility 02/07/2007 04/22/2011 PAIN FOOT 11/25/2006 08/11/2009 Myalgia and myositis, unspecified 03/17/2001 04/22/2011 Backache, unspecified 2018 Nonspecific abnormal electro cardiogram (ECG) (EKG) 10/31/2020 Overview: PAC documented as of this encounter (statuses as of 02/14/2023) [facility]05-02-[facility] History of Present illness Narrative* Braulio Whitney MD - 10/19/2021 1:13 PM EDT Patient presents with: Follow Up HPI: Patient presents today for office visit for follow up. Seeing derm. Just had skin lesion taken off her neck. Is slightly swollen yet. No signs of infection. Advised to follow with derm if any issues. Discussed her asa use. Is for primary prevention. Discussed can stop based on age. HTN: Patient is compliant with meds Yes Denies side effects: Yes. Chest pain: No. Dyspnea: No. Edema: No. Palpitations: No. .HYPERLIPIDEMIA: Patient is taking medications: Yes. Patient denies myalgias: Yes. GERD:no issues with stomach. Component Latest Ref Rng & Units 05/18/2021 WBC 3.70 - 11.00 k/uL 6.96 RBC 3.90 - 5.20 m/uL 5.38 (H) Hemoglobin 11.5 - 15.5 g/dL 13.6 Hematocrit 36.0 - 46.0 % 44.3 MCV 80.0 - 100.0 fL 82.3 MCH 26.0 - 34.0 pG 25.3 (L) MCHC 30.5 - 36.0 g/dL 30.7 RDW-CV 11.5 - 15.0 % 15.1 (H) Platelet Count 150 - 400 k/uL 279 MPV 9.0 - 12.7 fL 10.1 Neut% % 58.4 Abs Neut (ANC) 1.45 - 7.50 k/uL 4.04 Lymph% % 34.9 Abs Lymph 1.00 - 4.00 k/uL 2.43 [place]% % 5.6 Abs [place] <0.87 k/uL 0.39 Eosin% % 0.7 Abs Eosin <0.46 k/uL 0.05 Baso% % 0.4 Abs Baso <0.11 k/uL 0.03 Nucleated Reds 0 /100 WBC 0.0 Absolute nRBC <0.01 k/uL <0.01 Diff Type Auto Diff Glucose 74 - 99 mg/dL 97 BUN 7 - 21 mg/dL 13 Creatinine 0.58 - 0.96 mg/dL 0.93 Sodium 136 - 144 mmol/L 139 Potassium 3.7 - 5.1 mmol/L 3.9 Chloride 97 - 105 mmol/L 99 CO2 22 - 30 mmol/L 28 Anion Gap 9 - 18 mmol/L 12 Calcium 8.5 - 10.2 mg/dL 9.7 eGFR- >60 eGFR-All Other Races . 58 Iron 41 - 186 ug/dL 48 TIBC 232 - 386 ug/dL 337 Transferrin Saturation 15 - 57 % 14 (L) Hemoglobin A1C 4.3 - 5.6 % 5.9 (H) Estimated Average Glucose mg/dL 123 MEDICATIONS: Current Outpatient Medications Medication Sig lisinopril-hydroCHLOROthiazide (PRINZIDE,ZESTORETIC) 10-12.5 mg per tablet Take 1 tablet by mouth every morning. pravastatin (PRAVACHOL) 40 mg tablet Take 1 tablet by mouth once daily. omeprazole (PRILOSEC) 40 mg capsule Take 1 capsule by mouth once daily. latanoprost (XALATAN) 0.005 % ophthalmic solution Use 1 Drop in both eyes daily at bedtime. TO AFFECTED EYE(S) Calcium Carbonate-Vitamin D2 (CALCIUM + D) 600 mg calcium- 200 unit ORAL Tab Take 1 tablet by mouthonce daily. ADULT ASPIRIN 81 MG CHEWABLE TAB Take one(1) tablet daily. famotidine (PEPCID) 20 mg tablet Take 1 tablet by mouth daily at bedtime. Blood Pressure Cuff - Home Use BLOOD PRESSURE CUFF FOR HOME USE. DX: LABILE BLOOD PRESSURE No current facility-administered medications for this visit. ALLERGIES: ALLERGIES No Known Allergies PAST MEDICAL HISTORY Diagnosis Date Arthritis Arthropathy, unspecified, site unspecified Backache, unspecified CKD (chronic kidney disease) stage 3, GFR 30-59 ml/min ([facility]) 07/31/2018 Diverticulosis of colon (without mention of hemorrhage) Essential hypertension, benign Female stress incontinence mild Melanoma ([facility]) 09/03/2020 Right anterior proximal upper arm Nonspecific abnormal electrocardiogram (ECG) (EKG) PAC Other and unspecified hyperlipidemia Reactive depression 07/31/2018 Symptomatic menopausal or female climacteric states PAST SURGICAL HISTORY Procedure Laterality Date ABDOMINAL SURGERY HX APPENDECTOMY APPENDECTOMY HX CHOLECSTOT/CHOLECSTOST W/EXPL DRG/RMVL ST1 SPX COLONOSCOPY FLX DX W/COLLJ SPEC WHEN PFRMD 2001 Colonoscopy COLONOSCOPY FLX DX W/COLLJ SPEC WHEN PFRMD 01/05/2012 Colonoscopy COLONOSCOPY FLX DX W/COLLJ SPEC WHEN PFRMD 01/13/2021 DILATION & CURETTAGE DX&/THER NONOBSTETRIC Dilation & curettage ESOPHAGOGASTRODUODENOSCOPY TRANSORAL DIAGNOSTIC 01/13/2021 EXC/DSTRJ LINGUAL TONSIL ANY METHOD SPX LIG/TRNSXJ FLP TUBE ABDL/VAG APPR UNI/BI Tubal ligation NEUROPLASTY &/TRANSPOS MEDIAN NRV CARPAL TUNNE 06/08/2011 Carpal tunnel decomp, right PAST SURGICAL HISTORY OF 2006 removal growth between toes =left REVISE MEDIAN N/CARPAL TUNNEL SURG 06/28/2013 left CTR SALPINGO-OOPHORECTOMY COMPL/PRTL UNI/BI SPX 2003 Salpingo-oophorectomy SKIN BIOPSY HX TOTAL ABDOMINAL HYSTERECT W/WO RMVL TUBE OVARY 2003 Hysterectomy, ELLIOT VAGINAL HYSTERECTOMY FAMILY HISTORY Problem Relation Age of Onset Heart Mother Diabetes Mother Cancer Mother UTERUS Diabetes Father Heart Father Cancer Maternal Grandmother UTERUS Colon Cancer Daughter Social History Tobacco Use Smoking status: Never Smoker Smokeless tobacco: Never Used Substance Use Topics Alcohol use: No Drug use: No Reviewed current medications, allergies, past medical history, surgical history, family history andsocial history today. REVIEW OF SYSTEMS All other reviewed and negative other than HPI. HEALTH MAINTENANCE: Reviewed health maintenance issues today and recommended the following in detail. ADVANCE DIRECTIVE DISCUSSION-has living will. On file. VITALS: BP 132/82 Pulse 64 Wt 88.9 kg (196 lb) BMI 32.26 kg/m Last 4 Encounter Wt Readings: Date: Wt: 10/19/2021 88.9 kg (196 lb) 05/18/2021 88.9 kg (196 lb) 02/13/2021 89.4 kg (197 lb) 12/12/2020 92.1 kg (203 lb) PHYSICAL EXAMINATION: General appearance: Well appearing, alert, in no acute distress, well-hydrated, well nourished. Skin: Skin color, texture, turgor normal, no suspicious rashes or lesions Head: Normocephalic, no masses, lesions, tenderness or abnormalities Neck: Supple, no adenopathy; thyroid symmetric, normal size, no bruits Lungs: Lungs clear to auscultation. No wheezing, rhonchi, rales Heart: RRR without murmur, gallop, or rubs. No ectopy Abdomen: Normal abdominal exam, Abdomen soft, non-tender. Bowel sounds normal. No masses, organomegaly Extremities: No deformities, edema, skin discoloration, clubbing or cyanosis. Good capillary refill. Musculoskeletal: No joint swelling, deformity, or tenderness Peripheral pulses: Normal Neuro: Negative. ASSESSMENT/PLAN: 1. Stage 3a chronic kidney disease (HCC) - ICD9: 585.3, ICD10: N18.31 (primary diagnosis) - follow labs. - CBC + DIFF - COMP METABOLIC PANEL 2. Hyperlipidemia with target LDL less than 130 - ICD9: 272.4, ICD10: E78.5 - good control - Continue current medication. - PRAVASTATIN 40 MG TABLET - LIPID PANEL BASIC 3. Skin cancer - ICD9: 173.90, ICD10: C44.90 - discussed limiting sun exposure. 4. Melanoma of left upper arm (HCC) - ICD9: 172.6, ICD10: C43.62 - stable. 5. Impaired fasting glucose - ICD9: 790.21, ICD10: R73.01 - HGB A1C Braulio Whitney RTO in six months and prn. Medical Decision Making [facility]* Diagnosis Stage 3a chronic kidney disease (HCC)- Primary Hyperlipidemia with target LDL less than 130 Other and unspecified hyperlipidemia Skin cancer Unspecified malignant neoplasm of skin, site unspecified 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, including shoulder Impaired fasting glucose documented in this encounter [facility]05-01-2022 History of Present illness Narrative* Cece Brewer RN - 01/26/2022 1:50 PM EDT [employer] [facility] TELEPHONIC OUTREACH Provider Action/FYI: HEALTHY AT HOME [facility] this is Suzi Brewer RN your nurse [employer]. I am calling to provide you with a phone number to connect you with [facility] services. This number is available 7 days a week from 8am-8pm and provides you with one call access to nursing, appointments, and other valuable resources. [facility] also send this information to your [employer]. Please take the time to write this number down . Since last [employer] [facility] Telephonic Outreach: 01/04/22 Nina [facility] Hoarseness x 1-2 months, L ear discomfort, consult ORTH for carpal tunnel 01/21/[address] Elizabeth PLAN: We had a lengthy discussion about her treatment options. She does appear to have had some return ofher carpal tunnel again as it was quite severe at that time. We discussed the risks, benefits, alternatives and potential complications involving both operative nonoperative care and she would like to have revision surgery of the left hand, and while under anesthesia, will excised and sent for pathology the skin lesion on the dorsum of the hand. Patient preparing for surgery for carpal tunnel. Contact made with patient: Yes Patient identified by name and . Discussed care with patient It s nice talking to you again. As a reminder, this is our bi-weekly check-in where I will be asking you questions about your health. This will only take a few minutes of your time. Is this a good time? Yes Symptoms What Chronic Disease(s) does the patient have: CKD Do you check your blood pressures at home? No Do you have new or worse shortness of breath with activity? No Do you feel like you are dehydrated for any reason, including not being able to eat or drink normally, or having less urine/much darker urine than normal for you? No Do you check your daily weight at home? No Are you having any other symptoms that your PCP needs to know about? No Symptom Escalation The patient required an escalation for symptom(s)? No Medications Do you have any questions about taking your medication or which medications you should be on? No Do you need any medication refills at this time, including any of the medications you might take only when needed? No Social We would like to make sure you have what you need so that your basic needs are met- including your personal safety, food, housing and medications? Would you like to speak with a social work steam hoist operator to help give you support for any of these needs? No It can be normal to feel anxious or down during a time like this. Would you like to talk to a mental health professional about how you have been feeling? No Closing Thank you for taking the time to talk with me today. We want to work with you to ensure that we arekeeping your medical condition(s) well-controlled and to keep you healthy and out of the doctor's office or hospital. It s also not too late for me to sign you up for automated weekly questionnaires through [employer]. This is an easy way for us to stay connected each week. Are you interested? No, I understand. We can always sign you up in the future if you change your mind. Just as a reminder, will continue to call you every other week to check in on your health. Our calls should take 10-15 minutes or less. Remember, if you have concerns in between our calls, please call your PCP's office right away. Thank you. Enter next patient outreach date for two weeks on the same day of the week as today in the Track PtOutreach and End outreach. [facility] History of Present illness Narrative* Cece Brewer RN - 03/10/2022 12:26 PM EDT [employer] [facility] TELEPHONIC OUTREACH Provider Action/FYI: [facility] / since [facility] Date Time Provider Dept Phone 03/11/2022 9:45 AM GABE ELIZABETH Post op ORTH [phone] 04/21/2022 3:00 PM BRAULIO WHITNEY PCP [phone] Contact made with patient: Yes Patient identified by name and . Discussed care with patient It s nice talking to you again. As a reminder, this is our bi-weekly check-in where I will be asking you questions about your health. This will only take a few minutes of your time. Is this a good time? Yes Symptoms What Chronic Disease(s) does the patient have: CKD Do you check your blood pressures at home? No Do you have new or worse shortness of breath with activity? No Do you feel like you are dehydrated for any reason, including not being able to eat or drink normally, or having less urine/much darker urine than normal for you? No Do you check your daily weight at home? No Are you having any other symptoms that your PCP needs to know about? No Symptom Escalation The patient required an escalation for symptom(s)? No Medications Do you have any questions about taking your medication or which medications you should be on? No Do you need any medication refills at this time, including any of the medications you might take only when needed? No Social We would like to make sure you have what you need so that your basic needs are met- including your personal safety, food, housing and medications? Would you like to speak with a social work steam hoist operator to help give you support for any of these needs? No It can be normal to feel anxious or down during a time like this. Would you like to talk to a mental health professional about how you have been feeling? No Closing Thank you for taking the time to talk with me today. We want to work with you to ensure that we arekeeping your medical condition(s) well-controlled and to keep you healthy and out of the doctor's office or hospital. It s also not too late for me to sign you up for automated weekly questionnaires through [employer]. This is an easy way for us to stay connected each week. Are you interested? No, I understand. We can always sign you up in the future if you change your mind. Just as a reminder, will continue to call you every other week to check in on your health. Our calls should take 10-15 minutes or less. Remember, if you have concerns in between our calls, please call your PCP's office right away. Thank you. Enter next patient outreach date for two weeks on the same day of the week as today in the Track PtOutreach and End outreach. [facility] History of Present illness Narrative* Cece Brewer RN - 04/08/2022 3:42 PM EDT [employer] [facility] TELEPHONIC OUTREACH Provider Action/FYI: No concerns or questions today. Reminded of appointment below Follow up from / since previous [facility] Telephonic Outreach: ORTH visit for carpal tunnel L post op follow up Appointments for Next 60 Days Date Time Provider Location Dept Phone 04/21/2022 3:00 PM BRAULIO WHITNEY [facility] [phone] Contact made with patient: Yes Patient identified by name and . Discussed care with patient It s nice talking to you again. As a reminder, this is our bi-weekly check-in where I will be asking you questions about your health. This will only take a few minutes of your time. Is this a good time? Yes Symptoms What Chronic Disease(s) does the patient have: CKD Do you check your blood pressures at home? Yes, Enter readings: 142/62 136/65 Do you have new or worse shortness of breath with activity? No Are you having any other symptoms that your PCP needs to know about? No Symptom Escalation The patient required an escalation for symptom(s)? No Medications Do you have any questions about taking your medication or which medications you should be on? No Do you need any medication refills at this time, including any of the medications you might take only when needed? No Social We would like to make sure you have what you need so that your basic needs are met- including your personal safety, food, housing and medications? Would you like to speak with a social work steam hoist operator to help give you support for any of these needs? No It can be normal to feel anxious or down during a time like this. Would you like to talk to a mental health professional about how you have been feeling? No Closing Thank you for taking the time to talk with me today. We want to work with you to ensure that we arekeeping your medical condition(s) well-controlled and to keep you healthy and out of the doctor's office or hospital. It s also not too late for me to sign you up for automated weekly questionnaires through [employer]. This is an easy way for us to stay connected each week. Are you interested? No, I understand. We can always sign you up in the future if you change your mind. Just as a reminder, will continue to call you every other week to check in on your health. Our calls should take 10-15 minutes or less. Remember, if you have concerns in between our calls, please call your PCP's office right away. Thank you. Enter next patient outreach date for two weeks on the same day of the week as today in the Track PtOutreach and End outreach. documented in this encounter[facility] History of Present illness Narrative* Aliya Feliz)Scot - 09/04/2020 8:40 AM EDT Radiology Service Progress Note PATIENT NAME: Libia Najera DATE OF SERVICE: September 04, 2020 TIME: 8:33 AM PATIENT IDENTITY VERIFICATION COMPLETED USING TWO (2) IDENTIFIERS: Name and Date of confirmedby patient verbally. FALL SCREENING: Has the patient had 2 falls in the last year or 1 fall with injury or currently using an Ambulatory Assistive Device (Walker, Cane, Wheelchair, Crutches, etc.)? No PATIENT GENDER DATA: Female. status: : No status: NO. PATIENT RELEVANT IMPLANT DATA REVIEWED: Yes RADIOLOGY DEPARTMENT: General X-ray: Exam(s) Completed: Lower Extremity X- Ray(s): Tibia Fibula, Right: PERIPHERAL IV DATA: Not applicable SIGNED BY: RT Nena September 04, 2020 8:33 AM [facility] Diagnosis CKD (chronic kidney disease) stage 1, GFR 90 ml/min or greater- Primary Chronic kidney disease, Stage I [facility] Hoarseness- Primary Dysphonia Carpal tunnel syndrome, bilateral Carpal tunnel syndrome Ear itching Unspecified pruritic disorder Skin lesion Unspecified disorder of skin and subcutaneous tissue [facility] Diagnosis Carpal tunnel syndrome on left- Primary Carpal tunnel syndrome Skin lesion of hand Unspecified disorder of skin and subcutaneous tissue Carpal tunnel syndrome on left Carpal tunnel syndrome Skin lesion of hand Unspecified disorder of skin and subcutaneous tissue [facility] Diagnosis Skin lesion of hand- Primary Unspecified disorder of skin and subcutaneous tissue Carpal tunnel syndrome, bilateral Carpal tunnel syndrome Carpal tunnel syndrome on left Carpal tunnel syndrome Skin lesion of hand Unspecified disorder of skin and subcutaneous tissue [facility] Diagnosis Pre-operative examination- Primary Preoperative examination, unspecified Carpal tunnel syndrome, unspecified laterality Gastroesophageal reflux disease, unspecified whether esophagitis present Essential hypertension, benign Female stress incontinence Hyperlipidemia with target LDL less than 130 Other and unspecified hyperlipidemia Glaucoma suspect of both eyes Preglaucoma, unspecified Impaired fasting glucose Neuropathy - (NOS) 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, including shoulder Stage 3a chronic kidney disease (HCC) Spinal stenosis of lumbar region with neurogenic claudication Spinal stenosis, lumbar region, with neurogenic claudication Class 1 obesity due to excess calories with body mass index (BMI) of 30.0 to 30.9 in adult, unspecified whether serious comorbidity present Carpal tunnel syndrome on left Carpal tunnel syndrome Skin lesion of hand Unspecified disorder of skin and subcutaneous tissue [facility] Diagnosis Carpal tunnel syndrome of left wrist- Primary Carpal tunnel syndrome Carpal tunnel syndrome on left Carpal tunnel syndrome Skin lesion of hand Unspecified disorder of skin and subcutaneous tissue [facility] Diagnosis Carpal tunnel syndrome on left- Primary Carpal tunnel syndrome Skin lesion of hand Unspecified disorder of skin and subcutaneous tissue [facility] Diagnosis Hearing difficulty of both ears- Primary Dermatitis of ear canal, left Impacted cerumen of right ear Impacted cerumen [facility] Diagnosis Impacted cerumen of left ear- Primary Impacted cerumen [facility] Diagnosis Carpal tunnel syndrome on left- Primary Carpal tunnel syndrome Skin lesion of hand Unspecified disorder of skin and subcutaneous tissue [facility] noteNo assessment information availableWSelect [facility] [place] Work Phone: Evaluation note* Diagnosis Left arm pain- Primary Pain in limb Hypokalemia Hypopotassemia Essential hypertension, benign Hyperlipidemia with target LDL less than 130 Other and unspecified hyperlipidemia [facility]* Diagnosis Acute pain of right knee- Primary Rosacea [facility]* Diagnosis Acute pain of right knee Rosacea [facility] Diagnosis Hyperlipidemia with target LDL less than 130 Other and unspecified hyperlipidemia [facility]* Diagnosis Essential hypertension, benign- Primary Hyperlipidemia with target LDL less than 130 Other and unspecified hyperlipidemia Stage 3a chronic kidney disease (HCC) Impaired fasting glucose History of iron deficiency Personal history of diseases of blood and blood-forming organs Spinal stenosis of lumbar region with neurogenic claudication Spinal stenosis, lumbar region, with neurogenic claudication [facility] Diagnosis RUQ pain Abdominal pain, right upper quadrant [facility]* Diagnosis Essential hypertension, benign- Primary Hyperlipidemia with target LDL less than 130 Other and unspecified hyperlipidemia Female stress incontinence 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, including shoulder History of iron deficiency Personal history of diseases of blood and blood-forming organs Spinal stenosis of lumbar region with neurogenic claudication Spinal stenosis, lumbar region, with neurogenic claudication Hyperglycemia Other abnormal glucose [facility]* Diagnosis Hyperlipidemia with target LDL less than 130 Other and unspecified hyperlipidemia [facility]* Diagnosis Acute pain of left knee- Primary [facility] Diagnosis Acute pain of left knee- Primary Contusion of left lower leg, subsequent encounter [facility]* Diagnosis Pre-operative examination- Primary Preoperative examination, unspecified Carpal tunnel syndrome, unspecified laterality Gastroesophageal reflux disease, unspecified whether esophagitis present Essential hypertension, benign Female stress incontinence Hyperlipidemia with target LDL less than 130 Other and unspecified hyperlipidemia Glaucoma suspect of both eyes Preglaucoma, unspecified Impaired fasting glucose Neuropathy - (NOS) 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, including shoulder Stage 3a chronic kidney disease (HCC) Spinal stenosis of lumbar region with neurogenic claudication Spinal stenosis, lumbar region, with neurogenic claudication Class 1 obesity due to excess calories with body mass index (BMI) of 30.0 to 30.9 in adult, unspecified whether serious comorbidity present Needs assistance with community resources- Primary [facility]* Diagnosis Pre-operative examination- Primary Preoperative examination, unspecified Carpal tunnel syndrome, unspecified laterality Gastroesophageal reflux disease, unspecified whether esophagitis present Essential hypertension, benign Female stress incontinence Hyperlipidemia with target LDL less than 130 Other and unspecified hyperlipidemia Glaucoma suspect of both eyes Preglaucoma, unspecified Impaired fasting glucose Neuropathy - (NOS) 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, including shoulder Stage 3a chronic kidney disease (HCC) Spinal stenosis of lumbar region with neurogenic claudication Spinal stenosis, lumbar region, with neurogenic claudication Class 1 obesity due to excess calories with body mass index (BMI) of 30.0 to 30.9 in adult, unspecified whether serious comorbidity present Bronchitis Bronchitis, not specified as acute or chronic [facility]* Diagnosis Pre-operative examination- Primary Preoperative examination, unspecified Carpal tunnel syndrome, unspecified laterality Gastroesophageal reflux disease, unspecified whether esophagitis present Essential hypertension, benign Female stress incontinence Hyperlipidemia with target LDL less than 130 Other and unspecified hyperlipidemia Glaucoma suspect of both eyes Preglaucoma, unspecified Impaired fasting glucose Neuropathy - (NOS) 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, including shoulder Stage 3a chronic kidney disease (HCC) Spinal stenosis of lumbar region with neurogenic claudication Spinal stenosis, lumbar region, with neurogenic claudication Class 1 obesity due to excess calories with body mass index (BMI) of 30.0 to 30.9 in adult, unspecified whether serious comorbidity present Acute pain of right knee documented in this encounter [facility] note* Diagnosis Pain of right lower extremity Pre-operative examination- Primary Preoperative examination, unspecified Carpal tunnel syndrome, unspecified laterality Gastroesophageal reflux disease, unspecified whether esophagitis present Essential hypertension, benign Female stress incontinence Hyperlipidemia with target LDL less than 130 Other and unspecified hyperlipidemia Glaucoma suspect of both eyes Preglaucoma, unspecified Impaired fasting glucose Neuropathy - (NOS) 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, including shoulder Stage 3a chronic kidney disease (HCC) Spinal stenosis of lumbar region with neurogenic claudication Spinal stenosis, lumbar region, with neurogenic claudication Class 1 obesity due to excess calories with body mass index (BMI) of 30.0 to 30.9 in adult, unspecified whether serious comorbidity present [facility]* Diagnosis Pre-operative examination- Primary Preoperative examination, unspecified Carpal tunnel syndrome, unspecified laterality Gastroesophageal reflux disease, unspecified whether esophagitis present Essential hypertension, benign Female stress incontinence Hyperlipidemia with target LDL less than 130 Other and unspecified hyperlipidemia Glaucoma suspect of both eyes Preglaucoma, unspecified Impaired fasting glucose Neuropathy - (NOS) 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, including shoulder Stage 3a chronic kidney disease (HCC) Spinal stenosis of lumbar region with neurogenic claudication Spinal stenosis, lumbar region, with neurogenic claudication Class 1 obesity due to excess calories with body mass index (BMI) of 30.0 to 30.9 in adult, unspecified whether serious comorbidity present Essential hypertension, benign- Primary Hyperlipidemia with target LDL less than 130 Other and unspecified hyperlipidemia BPPV (benign paroxysmal positional vertigo), unspecified laterality Female stress incontinence 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, including shoulder Impaired fasting glucose Spinal stenosis of lumbar region with neurogenic claudication Spinal stenosis, lumbar region, with neurogenic claudication Class 1 obesity with body mass index (BMI) of 30.0 to 30.9 in adult, unspecified obesity type, unspecified whether serious comorbidity present [facility] Diagnosis Pre-operative examination- Primary Preoperative examination, unspecified Carpal tunnel syndrome, unspecified laterality Gastroesophageal reflux disease, unspecified whether esophagitis present Essential hypertension, benign Female stress incontinence Hyperlipidemia with target LDL less than 130 Other and unspecified hyperlipidemia Glaucoma suspect of both eyes Preglaucoma, unspecified Impaired fasting glucose Neuropathy - (NOS) 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, including shoulder Stage 3a chronic kidney disease (HCC) Spinal stenosis of lumbar region with neurogenic claudication Spinal stenosis, lumbar region, with neurogenic claudication Class 1 obesity due to excess calories with body mass index (BMI) of 30.0 to 30.9 in adult, unspecified whether serious comorbidity present Essential hypertension, benign- Primary Frequent bowel movements Other symptoms involving digestive system Tubular adenoma Benign neoplasm of unspecified site Left wrist pain Pain in joint, forearm [facility] Diagnosis Pre-operative examination- Primary Preoperative examination, unspecified Carpal tunnel syndrome, unspecified laterality Gastroesophageal reflux disease, unspecified whether esophagitis present Essential hypertension, benign Female stress incontinence Hyperlipidemia with target LDL less than 130 Other and unspecified hyperlipidemia Glaucoma suspect of both eyes Preglaucoma, unspecified Impaired fasting glucose Neuropathy - (NOS) 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, including shoulder Stage 3a chronic kidney disease (HCC) Spinal stenosis of lumbar region with neurogenic claudication Spinal stenosis, lumbar region, with neurogenic claudication Class 1 obesity due to excess calories with body mass index (BMI) of 30.0 to 30.9 in adult, unspecified whether serious comorbidity present Screen for colon cancer- Primary Special screening for malignant neoplasms, colon Family history of colon cancer Family history of malignant neoplasm of gastrointestinal tract History of colonic polyps Personal history of colonic polyps [facility]* Diagnosis Pre-operative examination- Primary Preoperative examination, unspecified Carpal tunnel syndrome, unspecified laterality Gastroesophageal reflux disease, unspecified whether esophagitis present Essential hypertension, benign Female stress incontinence Hyperlipidemia with target LDL less than 130 Other and unspecified hyperlipidemia Glaucoma suspect of both eyes Preglaucoma, unspecified Impaired fasting glucose Neuropathy - (NOS) 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, including shoulder Stage 3a chronic kidney disease (HCC) Spinal stenosis of lumbar region with neurogenic claudication Spinal stenosis, lumbar region, with neurogenic claudication Class 1 obesity due to excess calories with body mass index (BMI) of 30.0 to 30.9 in adult, unspecified whether serious comorbidity present Essential hypertension, benign- Primary Hyperlipidemia with target LDL less than 130 Other and unspecified hyperlipidemia Neuropathy - (NOS) Gastroesophageal reflux disease, unspecified whether esophagitis present Stage 3a chronic kidney disease (HCC) History of melanoma Personal history of malignant melanoma of skin Impaired fasting glucose Spinal stenosis of lumbar region with neurogenic claudication Spinal stenosis, lumbar region, with neurogenic claudication [facility]* Diagnosis Pre-operative examination- Primary Preoperative examination, unspecified Carpal tunnel syndrome, unspecified laterality Gastroesophageal reflux disease, unspecified whether esophagitis present Essential hypertension, benign Female stress incontinence Hyperlipidemia with target LDL less than 130 Other and unspecified hyperlipidemia Glaucoma suspect of both eyes Preglaucoma, unspecified Impaired fasting glucose Neuropathy - (NOS) 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, including shoulder Stage 3a chronic kidney disease (HCC) Spinal stenosis of lumbar region with neurogenic claudication Spinal stenosis, lumbar region, with neurogenic claudication Class 1 obesity due to excess calories with body mass index (BMI) of 30.0 to 30.9 in adult, unspecified whether serious comorbidity present Renal insufficiency- Primary Unspecified disorder of kidney and ureter Hypercalcemia [facility]* Diagnosis Pre-operative examination- Primary Preoperative examination, unspecified Carpal tunnel syndrome, unspecified laterality Gastroesophageal reflux disease, unspecified whether esophagitis present Essential hypertension, benign Female stress incontinence Hyperlipidemia with target LDL less than 130 Other and unspecified hyperlipidemia Glaucoma suspect of both eyes Preglaucoma, unspecified Impaired fasting glucose Neuropathy - (NOS) 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, including shoulder Stage 3a chronic kidney disease (HCC) Spinal stenosis of lumbar region with neurogenic claudication Spinal stenosis, lumbar region, with neurogenic claudication Class 1 obesity due to excess calories with body mass index (BMI) of 30.0 to 30.9 in adult, unspecified whether serious comorbidity present Hyperlipidemia with target LDL less than 130 Other and unspecified hyperlipidemia [facility]* Diagnosis Pre-operative examination- Primary Preoperative examination, unspecified Carpal tunnel syndrome, unspecified laterality Gastroesophageal reflux disease, unspecified whether esophagitis present Essential hypertension, benign Female stress incontinence Hyperlipidemia with target LDL less than 130 Other and unspecified hyperlipidemia Glaucoma suspect of both eyes Preglaucoma, unspecified Impaired fasting glucose Neuropathy - (NOS) 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, including shoulder Stage 3a chronic kidney disease (HCC) Spinal stenosis of lumbar region with neurogenic claudication Spinal stenosis, lumbar region, with neurogenic claudication Class 1 obesity due to excess calories with body mass index (BMI) of 30.0 to 30.9 in adult, unspecified whether serious comorbidity present Special screening for malignant neoplasms, colon- Primary Screen for colon cancer Special screening for malignant neoplasms, colon Family history of colon cancer Family history of malignant neoplasm of gastrointestinal tract History of colonic polyps Personal history of colonic polyps [facility] Diagnosis Pre-operative examination- Primary Preoperative examination, unspecified Carpal tunnel syndrome, unspecified laterality Gastroesophageal reflux disease, unspecified whether esophagitis present Essential hypertension, benign Female stress incontinence Hyperlipidemia with target LDL less than 130 Other and unspecified hyperlipidemia Glaucoma suspect of both eyes Preglaucoma, unspecified Impaired fasting glucose Neuropathy - (NOS) 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, including shoulder Stage 3a chronic kidney disease (HCC) Spinal stenosis of lumbar region with neurogenic claudication Spinal stenosis, lumbar region, with neurogenic claudication Class 1 obesity due to excess calories with body mass index (BMI) of 30.0 to 30.9 in adult, unspecified whether serious comorbidity present Bilateral impacted cerumen- Primary Impacted cerumen Bilateral leg pain- Primary Pain in limb Primary osteoarthritis of both knees Primary localized osteoarthrosis, lower leg Spinal stenosis of lumbar region with neurogenic claudication Spinal stenosis, lumbar region, with neurogenic claudication Chronic pain syndrome Neuropathy - (NOS) Pain in left forearm Pain in limb [facility]* Diagnosis Pre-operative examination- Primary Preoperative examination, unspecified Carpal tunnel syndrome, unspecified laterality Gastroesophageal reflux disease, unspecified whether esophagitis present Essential hypertension, benign Female stress incontinence Hyperlipidemia with target LDL less than 130 Other and unspecified hyperlipidemia Glaucoma suspect of both eyes Preglaucoma, unspecified Impaired fasting glucose Neuropathy - (NOS) 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, including shoulder Stage 3a chronic kidney disease (HCC) Spinal stenosis of lumbar region with neurogenic claudication Spinal stenosis, lumbar region, with neurogenic claudication Class 1 obesity due to excess calories with body mass index (BMI) of 30.0 to 30.9 in adult, unspecified whether serious comorbidity present Bilateral leg pain- Primary Pain in limb Primary osteoarthritis of both knees Primary localized osteoarthrosis, lower leg Spinal stenosis of lumbar region with neurogenic claudication Spinal stenosis, lumbar region, with neurogenic claudication Chronic pain syndrome Neuropathy - (NOS) Pain in left forearm Pain in limb * Assessment & Plan Note - Zahida Perry APRN.MEASUREMENT ADVISOR - 11/02/2024 12:45 PM EDTAssociated Problem(s): Neuropathy - (NOS) Orders: gabapentin (NEURONTIN) 100 mg capsule; Take 1 capsule by mouth two times a day for 30 days. gabapentin (NEURONTIN) 100 mg capsule; Take 2 capsules by mouth daily at bedtime for 30 days. -managed by pain management (Dr Dixon),medication just updated from current orders * Assessment & Plan Note - Zahida Perry APRN.CNP - 11/02/2024 12:45 PM EDTAssociated Problem(s): Pain in left forearm Orders: gabapentin (NEURONTIN) 100 mg capsule; Take 1 capsule by mouth two times a day for 30 days. gabapentin (NEURONTIN) 100 mg capsule; Take 2 capsules by mouth daily at bedtime for 30 days. -managed by pain management (Dr Dixon),medication just updated from current orders * Assessment & Plan Note - Zahida Perry APRN.CNP - 11/02/2024 11:31 AM EDTAssociated Problem(s): Spinal stenosis of lumbar region with neurogenic claudication Orders: XR LUMBAR GENERAL 3V AP/LAT/L5-S1; Future XR KNEE GENERAL 4V AP BOTH/PA BOTH/LAT/MERC BILATERAL; Future predniSONE (DELTASONE) 10 mg tablet; Take 4 tabs daily x 3 days, then 3 tabs x 3 days, 2 tabs x 3 days, then 1 tab x3 days with food. [facility] Diagnosis Pre-operative examination- Primary Preoperative examination, unspecified Carpal tunnel syndrome, unspecified laterality Gastroesophageal reflux disease, unspecified whether esophagitis present Essential hypertension, benign Female stress incontinence Hyperlipidemia with target LDL less than 130 Other and unspecified hyperlipidemia Glaucoma suspect of both eyes Preglaucoma, unspecified Impaired fasting glucose Neuropathy - (NOS) 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, including shoulder Stage 3a chronic kidney disease (HCC) Spinal stenosis of lumbar region with neurogenic claudication Spinal stenosis, lumbar region, with neurogenic claudication Class 1 obesity due to excess calories with body mass index (BMI) of 30.0 to 30.9 in adult, unspecified whether serious comorbidity present Bilateral leg pain- Primary Pain in limb Primary osteoarthritis of both knees Primary localized osteoarthrosis, lower leg Spinal stenosis of lumbar region with neurogenic claudication Spinal stenosis, lumbar region, with neurogenic claudication Chronic pain syndrome Neuropathy - (NOS) Pain in left forearm Pain in limb Bilateral leg pain Pain in limb Primary osteoarthritis of both knees Primary localized osteoarthrosis, lower leg [facility] Diagnosis Pre-operative examination- Primary Preoperative examination, unspecified Carpal tunnel syndrome, unspecified laterality Gastroesophageal reflux disease, unspecified whether esophagitis present Essential hypertension, benign Female stress incontinence Hyperlipidemia with target LDL less than 130 Other and unspecified hyperlipidemia Glaucoma suspect of both eyes Preglaucoma, unspecified Impaired fasting glucose Neuropathy - (NOS) 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, including shoulder Stage 3a chronic kidney disease (HCC) Spinal stenosis of lumbar region with neurogenic claudication Spinal stenosis, lumbar region, with neurogenic claudication Class 1 obesity due to excess calories with body mass index (BMI) of 30.0 to 30.9 in adult, unspecified whether serious comorbidity present Bilateral leg pain- Primary Pain in limb Primary osteoarthritis of both knees Primary localized osteoarthrosis, lower leg Spinal stenosis of lumbar region with neurogenic claudication Spinal stenosis, lumbar region, with neurogenic claudication Chronic pain syndrome Neuropathy - (NOS) Pain in left forearm Pain in limb Lumbar spondylosis 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 of both knees Primary localized osteoarthrosis, lower leg [facility] Diagnosis Pre-operative examination- Primary Preoperative examination, unspecified Carpal tunnel syndrome, unspecified laterality Gastroesophageal reflux disease, unspecified whether esophagitis present Essential hypertension, benign Female stress incontinence Hyperlipidemia with target LDL less than 130 Other and unspecified hyperlipidemia Glaucoma suspect of both eyes Preglaucoma, unspecified Impaired fasting glucose Neuropathy - (NOS) 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, including shoulder Stage 3a chronic kidney disease (HCC) Spinal stenosis of lumbar region with neurogenic claudication Spinal stenosis, lumbar region, with neurogenic claudication Class 1 obesity due to excess calories with body mass index (BMI) of 30.0 to 30.9 in adult, unspecified whether serious comorbidity present Bilateral leg pain- Primary Pain in limb Primary osteoarthritis of both knees Primary localized osteoarthrosis, lower leg Spinal stenosis of lumbar region with neurogenic claudication Spinal stenosis, lumbar region, with neurogenic claudication Chronic pain syndrome Neuropathy - (NOS) Pain in left forearm Pain in limb Lumbar spondylosis- Primary Lumbosacral spondylosis without myelopathy [facility]* Diagnosis Pre-operative examination- Primary Preoperative examination, unspecified Carpal tunnel syndrome, unspecified laterality Gastroesophageal reflux disease, unspecified whether esophagitis present Essential hypertension, benign Female stress incontinence Hyperlipidemia with target LDL less than 130 Other and unspecified hyperlipidemia Glaucoma suspect of both eyes Preglaucoma, unspecified Impaired fasting glucose Neuropathy - (NOS) 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, including shoulder Stage 3a chronic kidney disease (HCC) Spinal stenosis of lumbar region with neurogenic claudication Spinal stenosis, lumbar region, with neurogenic claudication Class 1 obesity due to excess calories with body mass index (BMI) of 30.0 to 30.9 in adult, unspecified whether serious comorbidity present Bilateral leg pain- Primary Pain in limb Primary osteoarthritis of both knees Primary localized osteoarthrosis, lower leg Spinal stenosis of lumbar region with neurogenic claudication Spinal stenosis, lumbar region, with neurogenic claudication Chronic pain syndrome Neuropathy - (NOS) Pain in left forearm Pain in limb Right leg pain- Primary Pain in limb [facility]* Diagnosis Pre-operative examination- Primary Preoperative examination, unspecified Carpal tunnel syndrome, unspecified laterality Gastroesophageal reflux disease, unspecified whether esophagitis present Essential hypertension, benign Female stress incontinence Hyperlipidemia with target LDL less than 130 Other and unspecified hyperlipidemia Glaucoma suspect of both eyes Preglaucoma, unspecified Impaired fasting glucose Neuropathy - (NOS) 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, including shoulder Stage 3a chronic kidney disease (HCC) Spinal stenosis of lumbar region with neurogenic claudication Spinal stenosis, lumbar region, with neurogenic claudication Class 1 obesity due to excess calories with body mass index (BMI) of 30.0 to 30.9 in adult, unspecified whether serious comorbidity present Bilateral leg pain- Primary Pain in limb Primary osteoarthritis of both knees Primary localized osteoarthrosis, lower leg Spinal stenosis of lumbar region with neurogenic claudication Spinal stenosis, lumbar region, with neurogenic claudication Chronic pain syndrome Neuropathy - (NOS) Pain in left forearm Pain in limb Sciatica of right side- Primary Sciatica [facility]* Diagnosis Pre-operative examination- Primary Preoperative examination, unspecified Carpal tunnel syndrome, unspecified laterality Gastroesophageal reflux disease, unspecified whether esophagitis present Essential hypertension, benign Female stress incontinence Hyperlipidemia with target LDL less than 130 Other and unspecified hyperlipidemia Glaucoma suspect of both eyes Preglaucoma, unspecified Impaired fasting glucose Neuropathy - (NOS) 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, including shoulder Stage 3a chronic kidney disease (HCC) Spinal stenosis of lumbar region with neurogenic claudication Spinal stenosis, lumbar region, with neurogenic claudication Class 1 obesity due to excess calories with body mass index (BMI) of 30.0 to 30.9 in adult, unspecified whether serious comorbidity present Bilateral leg pain- Primary Pain in limb Primary osteoarthritis of both knees Primary localized osteoarthrosis, lower leg Spinal stenosis of lumbar region with neurogenic claudication Spinal stenosis, lumbar region, with neurogenic claudication Chronic pain syndrome Neuropathy - (NOS) Pain in left forearm Pain in limb Lumbar spondylosis- Primary Lumbosacral spondylosis without myelopathy [facility]* Diagnosis Pre-operative examination- Primary Preoperative examination, unspecified Carpal tunnel syndrome, unspecified laterality Gastroesophageal reflux disease, unspecified whether esophagitis present Essential hypertension, benign Female stress incontinence Hyperlipidemia with target LDL less than 130 Other and unspecified hyperlipidemia Glaucoma suspect of both eyes Preglaucoma, unspecified Impaired fasting glucose Neuropathy - (NOS) 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, including shoulder Stage 3a chronic kidney disease (HCC) Spinal stenosis of lumbar region with neurogenic claudication Spinal stenosis, lumbar region, with neurogenic claudication Class 1 obesity due to excess calories with body mass index (BMI) of 30.0 to 30.9 in adult, unspecified whether serious comorbidity present Bilateral leg pain- Primary Pain in limb Primary osteoarthritis of both knees Primary localized osteoarthrosis, lower leg Spinal stenosis of lumbar region with neurogenic claudication Spinal stenosis, lumbar region, with neurogenic claudication Chronic pain syndrome Neuropathy - (NOS) Pain in left forearm Pain in limb Lumbar spondylosis- Primary Lumbosacral spondylosis without myelopathy [facility] Diagnosis Pre-operative examination- Primary Preoperative examination, unspecified Carpal tunnel syndrome, unspecified laterality Gastroesophageal reflux disease, unspecified whether esophagitis present Essential hypertension, benign Female stress incontinence Hyperlipidemia with target LDL less than 130 Other and unspecified hyperlipidemia Glaucoma suspect of both eyes Preglaucoma, unspecified Impaired fasting glucose Neuropathy - (NOS) 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, including shoulder Stage 3a chronic kidney disease (HCC) Spinal stenosis of lumbar region with neurogenic claudication Spinal stenosis, lumbar region, with neurogenic claudication Class 1 obesity due to excess calories with body mass index (BMI) of 30.0 to 30.9 in adult, unspecified whether serious comorbidity present Bilateral leg pain- Primary Pain in limb Primary osteoarthritis of both knees Primary localized osteoarthrosis, lower leg Spinal stenosis of lumbar region with neurogenic claudication Spinal stenosis, lumbar region, with neurogenic claudication Chronic pain syndrome Neuropathy - (NOS) Pain in left forearm Pain in limb Lumbar spondylosis- Primary 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 of both knees Primary localized osteoarthrosis, lower leg [facility] Diagnosis Pre-operative examination- Primary Preoperative examination, unspecified Carpal tunnel syndrome, unspecified laterality Gastroesophageal reflux disease, unspecified whether esophagitis present Essential hypertension, benign Female stress incontinence Hyperlipidemia with target LDL less than 130 Other and unspecified hyperlipidemia Glaucoma suspect of both eyes Preglaucoma, unspecified Impaired fasting glucose Neuropathy - (NOS) 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, including shoulder Stage 3a chronic kidney disease (HCC) Spinal stenosis of lumbar region with neurogenic claudication Spinal stenosis, lumbar region, with neurogenic claudication Class 1 obesity due to excess calories with body mass index (BMI) of 30.0 to 30.9 in adult, unspecified whether serious comorbidity present Bilateral leg pain- Primary Pain in limb Primary osteoarthritis of both knees Primary localized osteoarthrosis, lower leg Spinal stenosis of lumbar region with neurogenic claudication Spinal stenosis, lumbar region, with neurogenic claudication Chronic pain syndrome Neuropathy - (NOS) Pain in left forearm Pain in limb Lumbar spondylosis- Primary Lumbosacral spondylosis without myelopathy Medicare annual wellness visit, subsequent Routine general medical examination at a health care facility Depression, unspecified depression type [facility] Diagnosis Pre-operative examination- Primary Preoperative examination, unspecified Carpal tunnel syndrome, unspecified laterality Gastroesophageal reflux disease, unspecified whether esophagitis present Essential hypertension, benign Female stress incontinence Hyperlipidemia with target LDL less than 130 Other and unspecified hyperlipidemia Glaucoma suspect of both eyes Preglaucoma, unspecified Impaired fasting glucose Neuropathy - (NOS) 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, including shoulder Stage 3a chronic kidney disease (HCC) Spinal stenosis of lumbar region with neurogenic claudication Spinal stenosis, lumbar region, with neurogenic claudication Class 1 obesity due to excess calories with body mass index (BMI) of 30.0 to 30.9 in adult, unspecified whether serious comorbidity present Bilateral leg pain- Primary Pain in limb Primary osteoarthritis of both knees Primary localized osteoarthrosis, lower leg Spinal stenosis of lumbar region with neurogenic claudication Spinal stenosis, lumbar region, with neurogenic claudication Chronic pain syndrome Neuropathy - (NOS) Pain in left forearm Pain in limb Lumbar spondylosis- Primary Lumbosacral spondylosis without myelopathy [facility] Additional Instructions ER work-up today shows no signs of active heart damage or damage secondary to the elevated blood pressure reading at home. Please take all your medication as previously directed but add the muscle relaxer as the left arm pain appears to be related to muscular spasm and tension. Please return to the ER should you have any further [facility] [place] [facility] Phone: Reason for referral (narrative)* Diagnostic Procedure Only (Routine) - Closed Specialty Diagnoses / Procedures Referred By Librado negron Referred To Contact XR IMAGING Diagnoses Acute pain of right knee Procedures XR KNEE GENERAL 4V AP BOTH/PA BOTH/LAT/MERC RIGHT RADIOLOGIC EXAM KNEE COMPLETE 4/MORE VIEWS Braulio Whitney MD [address] [place] [address] [place] [address] Referral ID Status Reason Start Date Expiration Date V isits Requested Visits Authorized [id number] Closed Auto-Generate d Referral 02/04/2023 03/05/2024 1 1 [facility] for referral (narrative)* Diagnostic Procedure Only (Routine) - Closed Specialty Diagnoses / Procedures Referred By Contac t Referred To Contact US IMAGING Diagnoses RUQ pain Procedures US ABD RIGHT UPPER QUADRANT US ABDOMINAL REAL TIME W/IMAGE LIMITED Braulio Whitney MD [address] [place] [address] [place] [address] Referral ID Status Reason Start Date Expiration Date V isits Requested Visits Authorized [id number] Closed Auto-Generate d Referral 03/17/2023 04/15/2024 1 1 [facility] for referral (narrative)* Diagnostic Procedure Only (Routine) - Closed Specialty Diagnoses / Procedures Referred By Contac t Referred To Contact XR IMAGING Diagnoses Acute pain of right knee Procedures XR KNEE GENERAL 4V AP BOTH/PA BOTH/LAT/MERC RIGHT RADIOLOGIC EXAM KNEE COMPLETE 4/MORE VIEWS Braulio Whitney MD [address] [place] [address] [place] [address] Referral ID Status Reason Start Date Expiration Date V isits Requested Visits Authorized [id number] Closed Auto-Generate d Referral 02/04/2023 03/05/2024 1 1 [facility] for visit Narrative* Auth/Cert Specialty Diagnoses / Procedures Referred By Contac t Referred To Contact Diagnoses Carpal tunnel syndrome on left Skin lesion of hand Procedures NEUROPLASTY &/TRANSPOS MEDIAN NRV CARPAL TUNNE REM LESION NEC,HND,SCAL 0.6-1.0CM DECOMPRESSION NERVE MEDIAN CARPAL TUNNEL EXCISION BENIGN LESION HANDS 0.6 TO 1.0 CM [facility] [address] [place] [address] Referral ID Status Reason Start Date Expiration Date Visits Re quested Visits Authorized [id number] 1 1 [facility] for visit Narrative* Diagnostic Procedure Only (Routine) - Closed Specialty Diagnoses / Procedures Referred By Contac t Referred To Contact XR IMAGING Diagnoses Acute pain of right knee Procedures XR KNEE GENERAL 4V AP BOTH/PA BOTH/LAT/MERC RIGHT RADIOLOGIC EXAM KNEE COMPLETE 4/MORE VIEWS Braulio Whitney MD [address] [place] [address] [place] [address] Referral ID Status Reason Start Date Expiration Date V isits Requested Visits Authorized [id number] Closed Auto-Generate d Referral 02/04/2023 03/05/2024 1 1 [facility] for visit Narrative* Outpatient Procedure (Routine) - Closed Specialty Diagnoses / Procedures Referred By Librado t Referred To Contact [facility] Diagnoses Screen for colon cancer Family history of colon cancer History of colonic polyps Procedures COLONOSCOPY SCREENING COLONOSCOPY FLX DX W/COLLJ SPEC WHEN Laurie Cleaning, ENROLLMENT ELIGIBILITY REPRESENTATIVE.MEASUREMENT ADVISOR [address] [place] [address] Phone: tel: fax: Rafy Raza MD [address] [place] [address] Phone: tel: fax: Referral ID Status Reason Start Date Expiration Date V isits Requested Visits Authorized [id number] Closed Auto-Generate d Referral 10/24/2024 11/24/2024 1 1 [facility] for visit Narrative* Diagnostic Procedure Only (Routine) - Closed Specialty Diagnoses / Procedures Referred By Contkeshia t Referred To Contact XR IMAGING Diagnoses Bilateral leg pain Primary osteoarthritis of both 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 Procedures XR KNEE GENERAL 4V AP BOTH/PA BOTH/LAT/MERC BILATERAL RADIOLOGIC EXAM KNEE COMPLETE 4/MORE VIEWS Nina Marley, ENROLLMENT ELIGIBILITY REPRESENTATIVE.MEASUREMENT ADVISOR [address] [place] [address] Phone: tel: fax: [place] [address] Referral ID Status Reason Start Date Expiration Date V isits Requested Visits Authorized [id number] Closed Auto-Generate d Referral 11/02/2024 12/02/2025 1 1 [facility] Advance Directives No Advanced Directives Records FoundDocuments on File Type Date Recorded Patient [employer] Records Analyst Expl anation Advance Directive(s) 01/13/2021 7:26 AM Advance Directive(s) 12/18/2020 11:03 AM Advance Directive(s) 07/14/2017 11:26 AM Documents on File Type Date Recorded Patient [employer] Records Analyst Expl anation Advance Directive(s) 01/13/2021 7:26 AM Advance Directive(s) 12/18/2020 11:03 AM Advance Directive(s) 07/14/2017 11:26 AM Documents on File Type Date Recorded Patient [employer] Records Analyst Expl anation Advance Directive(s) 07/14/2017 11:26 AM Documents on File Type Date Recorded Patient [employer] Records Analyst Expl anation Advance Directive(s) 07/14/2017 11:26 AM Advance Directive Response Recorded Date/ Time Living Will Yes August 26, 2022 5:11am Power of Car Pre Cooler Yes August 26 5:11am Name of Medical Power of Car Pre Cooler GARRICK Barba August 26, 2022 5:11am Reason for Referral Specialty Diagnoses / Procedures Referred By Librado negron Referred To Contact Orthopedics Diagnoses Carpal tunnel syndrome, bilateral Procedures CONSULT TO ORTHOPAEDICS OFFICE/OUTPATIENT [facility] MDM 60-74 MINUTES Nina Marley APRN.MEASUREMENT ADVISOR [address] [place] [address] Referral ID Status Reason Start Date Expiration Date Visits Requested Visits Authorized [id number] Authorized PCP Requested Referral 01/04/2022 01/04/2023 1 1 Specialty Diagnoses / Procedures Referred By Librado negron Referred To Contact Ent - Otolaryngology Diagnoses Hearing difficulty of both ears Procedures CONSULT TO ENT OFFICE/OUTPATIENT [facility] MDM 60-74 MINUTES Eulalia Clayton, [place].MEASUREMENT ADVISOR [address] [place] [address] Referral ID Status Reason Start Date Expiration Date Visits Requested Visits Authorized [id number] Authorized PCP Requested Referral 02/12/2022 02/12/2023 1 1 Medications Administered Section Inactive Administered Medications - up to 3 most recent administrations Medication Order MAR Action Action Date Dose Rate Site fentaNYL 50 mcg/mL 50 mcg injection (SUBLIMAZE) 50 mcg, INTRAVENOUS, EVERY 10 MINUTES NEEDED, 4 doses, Starting on 01/29/22 at 1723, Until 01/30/22 at 0304, Moderate Pain (4-6) - Parenteral, Severe Pain (>/=7) - Parenteral, breakthrough pain, FIRST LINE THERAPY for mild, moderate, or severe pain, USE FOR MILD PAIN ONLY IF PATIENT IS UNABLE TO TOLERATE ORAL THERAPY, Recovery or Phase I (only) lactated ringers iv infusion 50 mL/hr, INTRAVENOUS, CONTINUOUS, Starting on Tue01/29/22 at 1730, Until 01/30/22 at 0304, Recovery or Phase I (only) meperidine (PF) 12.5 mg injection (DEMEROL) 12.5 mg, INTRAVENOUS, EVERY 10 MINUTES NEEDED, 2 doses, Starting on Tue01/29/22 at 1723, Until 01/30/22 at 0304, for shivering, May Repeat 12.5 mg in 10 minutes X1, Recovery or Phase I (only) oxyCODONE IR 5 mg tab(s) (ROXICODONE) 5 mg, ORAL, NEEDED, 1 dose, Starting on Tue01/29/22 at 1723, Until 01/30/22 at 0304, Mild Pain (1-3) - Enteral, Recovery or Phase I (only) prochlorperazine 10 mg injection (COMPAZINE) 10 mg, INTRAVENOUS, EVERY 6 HOURS NEEDED, Starting on Tue01/29/22 at 1723, Until 01/30/22 at 0304, Nausea/Vomiting - First Line - Parenteral, EVERY 6 HOURS NEEDED Protect From Light, Recovery or Phase I (only) Summary Purpose Family History No Family History Records Found Relationship Condition Age at Onset Recorded Date/T avinash Unknown Family History?- Unknown June 4:13pm Chief Complaint and Reason for Visit Chief Complaint GENERAL ILLNESSS Additional Source Comments Source Comments (unrecognize d section and content) In the event this informatio n is protected by the Federal Confidentiality of Alcohol and Drug Abuse Patient Records regulations: The Federal rules restrict any use of the information to criminally investigate or prosecute any alcohol or drug abuse patient.[facility] the event this information is protected by the Federal Confidentiality of Alcohol and Drug Abuse Patient Records regulations: The Federal rules restrict any use of the information to criminally investigate or prosecute any alcohol or drug abuse patient.[facility] the event this information is protected by the Federal Confidentiality of Alcohol and Drug Abuse Patient Records regulations: The Federal rules restrict any use of the information to criminally investigate or prosecute any alcohol or drug abuse patient.[facility]In the event this information is protected by the Federal Confidentiality of Alcohol and Drug Abuse Patient Records regulations: The Federal rules restrict any use of the information to criminally investigate or prosecute any alcohol or drug abuse patient.[facility]In the event this information is protected by the Federal Confidentiality of Alcohol and Drug Abuse Patient Records regulations: The Federal rules restrict any use of the information to criminally investigate or prosecute any alcohol or drug abuse patient.[facility]In the event this information is protected by the Federal Confidentiality of Alcohol and Drug Abuse Patient Records regulations: The Federal rules restrict any use of the information to criminally investigate or prosecute any alcohol or drug abuse patient.[facility] HospitalIn the event this information is protected by the Federal Confidentiality of Alcohol and Drug Abuse Patient Records regulations: The Federal rules restrict any use of the information to criminally investigate or prosecute any alcohol or drug abuse patient.[facility] HospitalIn the event this information is protected by the Federal Confidentiality of Alcohol and Drug Abuse Patient Records regulations: The Federal rules restrict any use of the information to criminally investigate or prosecute any alcohol or drug abuse patient.[facility]In the event this information is protected by the Federal Confidentiality of Alcohol and Drug Abuse Patient Records regulations: The Federal rules restrict any use of the information to criminally investigate or prosecute any alcohol or drug abuse patient.[facility]In the event this information is protected by the Federal Confidentiality of Alcohol and Drug Abuse Patient Records regulations: The Federal rules restrict any use of the information to criminally investigate or prosecute any alcohol or drug abuse patient.[facility] HospitalIn the event this information is protected by the Federal Confidentiality of Alcohol and Drug Abuse Patient Records regulations: The Federal rules restrict any use of the information to criminally investigate or prosecute any alcohol or drug abuse patient.[facility] HospitalIn the event this information is protected by the Federal Confidentiality of Alcohol and Drug Abuse Patient Records regulations: The Federal rules restrict any use of the information to criminally investigate or prosecute any alcohol or drug abuse patient.[facility] HospitalIn the event this information is protected by the Federal Confidentiality of Alcohol and Drug Abuse Patient Records regulations: The Federal rules restrict any use of the information to criminally investigate or prosecute any alcohol or drug abuse patient.[facility] HospitalIn the event this information is protected by the Federal Confidentiality of Alcohol and Drug Abuse Patient Records regulations: The Federal rules restrict any use of the information to criminally investigate or prosecute any alcohol or drug abuse patient.[facility] HospitalIn the event this information is protected by the Federal Confidentiality of Alcohol and Drug Abuse Patient Records regulations: The Federal rules restrict any use of the information to criminally investigate or prosecute any alcohol or drug abuse patient.[facility]In the event this information is protected by the Federal Confidentiality of Alcohol and Drug Abuse Patient Records regulations: The Federal rules restrict any use of the information to criminally investigate or prosecute any alcohol or drug abuse patient.[facility]In the event this information is protected by the Federal Confidentiality of Alcohol and Drug Abuse Patient Records regulations: The Federal rules restrict any use of the information to criminally investigate or prosecute any alcohol or drug abuse patient.[facility] HospitalIn the event this information is protected by the Federal Confidentiality of Alcohol and Drug Abuse Patient Records regulations: The Federal rules restrict any use of the information to criminally investigate or prosecute any alcohol or drug abuse patient.[facility]In the event this information is protected by the Federal Confidentiality of Alcohol and Drug Abuse Patient Records regulations: The Federal rules restrict any use of the information to criminally investigate or prosecute any alcohol or drug abuse patient.[facility] HospitalIn the event this information is protected by the Federal Confidentiality of Alcohol and Drug Abuse Patient Records regulations: The Federal rules restrict any use of the information to criminally investigate or prosecute any alcohol or drug abuse patient.[facility] HospitalIn the event this information is protected by the Federal Confidentiality of Alcohol and Drug Abuse Patient Records regulations: The Federal rules restrict any use of the information to criminally investigate or prosecute any alcohol or drug abuse patient.[facility] HospitalIn the event this information is protected by the Federal Confidentiality of Alcohol and Drug Abuse Patient Records regulations: The Federal rules restrict any use of the information to criminally investigate or prosecute any alcohol or drug abuse patient.[facility] HospitalIn the event this information is protected by the Federal Confidentiality of Alcohol and Drug Abuse Patient Records regulations: The Federal rules restrict any use of the information to criminally investigate or prosecute any alcohol or drug abuse patient.[facility] HospitalIn the event this information is protected by the Federal Confidentiality of Alcohol and Drug Abuse Patient Records regulations: The Federal rules restrict any use of the information to criminally investigate or prosecute any alcohol or drug abuse patient.[facility] HospitalIn the event this information is protected by the Federal Confidentiality of Alcohol and Drug Abuse Patient Records regulations: The Federal rules restrict any use of the information to criminally investigate or prosecute any alcohol or drug abuse patient.[facility] HospitalIn the event this information is protected by the Federal Confidentiality of Alcohol and Drug Abuse Patient Records regulations: The Federal rules restrict any use of the information to criminally investigate or prosecute any alcohol or drug abuse patient.[facility] HospitalIn the event this information is protected by the Federal Confidentiality of Alcohol and Drug Abuse Patient Records regulations: The Federal rules restrict any use of the information to criminally investigate or prosecute any alcohol or drug abuse patient.[facility] HospitalIn the event this information is protected by the Federal Confidentiality of Alcohol and Drug Abuse Patient Records regulations: The Federal rules restrict any use of the information to criminally investigate or prosecute any alcohol or drug abuse patient.[facility] HospitalIn the event this information is protected by the Federal Confidentiality of Alcohol and Drug Abuse Patient Records regulations: The Federal rules restrict any use of the information to criminally investigate or prosecute any alcohol or drug abuse patient.[facility] HospitalIn the event this information is protected by the Federal Confidentiality of Alcohol and Drug Abuse Patient Records regulations: The Federal rules restrict any use of the information to criminally investigate or prosecute any alcohol or drug abuse patient.[facility] HospitalIn the event this information is protected by the Federal Confidentiality of Alcohol and Drug Abuse Patient Records regulations: The Federal rules restrict any use of the information to criminally investigate or prosecute any alcohol or drug abuse patient.[facility] HospitalIn the event this information is protected by the Federal Confidentiality of Alcohol and Drug Abuse Patient Records regulations: The Federal rules restrict any use of the information to criminally investigate or prosecute any alcohol or drug abuse patient.[facility] HospitalIn the event this information is protected by the Federal Confidentiality of Alcohol and Drug Abuse Patient Records regulations: The Federal rules restrict any use of the information to criminally investigate or prosecute any alcohol or drug abuse patient.[facility] HospitalIn the event this information is protected by the Federal Confidentiality of Alcohol and Drug Abuse Patient Records regulations: The Federal rules restrict any use of the information to criminally investigate or prosecute any alcohol or drug abuse patient.[facility] HospitalIn the event this information is protected by the Federal Confidentiality of Alcohol and Drug Abuse Patient Records regulations: The Federal rules restrict any use of the information to criminally investigate or prosecute any alcohol or drug abuse patient.[facility] HospitalIn the event this information is protected by the Federal Confidentiality of Alcohol and Drug Abuse Patient Records regulations: The Federal rules restrict any use of the information to criminally investigate or prosecute any alcohol or drug abuse patient.[facility] HospitalIn the event this information is protected by the Federal Confidentiality of Alcohol and Drug Abuse Patient Records regulations: The Federal rules restrict any use of the information to criminally investigate or prosecute any alcohol or drug abuse patient.[facility] HospitalIn the event this information is protected by the Federal Confidentiality of Alcohol and Drug Abuse Patient Records regulations: The Federal rules restrict any use of the information to criminally investigate or prosecute any alcohol or drug abuse patient.[facility] HospitalIn the event this information is protected by the Federal Confidentiality of Alcohol and Drug Abuse Patient Records regulations: The Federal rules restrict any use of the information to criminally investigate or prosecute any alcohol or drug abuse patient.[facility] HospitalIn the event this information is protected by the Federal Confidentiality of Alcohol and Drug Abuse Patient Records regulations: The Federal rules restrict any use of the information to criminally investigate or prosecute any alcohol or drug abuse patient.[facility] HospitalIn the event this information is protected by the Federal Confidentiality of Alcohol and Drug Abuse Patient Records regulations: The Federal rules restrict any use of the information to criminally investigate or prosecute any alcohol or drug abuse patient.[facility] HospitalIn the event this information is protected by the Federal Confidentiality of Alcohol and Drug Abuse Patient Records regulations: The Federal rules restrict any use of the information to criminally investigate or prosecute any alcohol or drug abuse patient.[facility] HospitalIn the event this information is protected by the Federal Confidentiality of Alcohol and Drug Abuse Patient Records regulations: The Federal rules restrict any use of the information to criminally investigate or prosecute any alcohol or drug abuse patient.[facility] HospitalIn the event this information is protected by the Federal Confidentiality of Alcohol and Drug Abuse Patient Records regulations: The Federal rules restrict any use of the information to criminally investigate or prosecute any alcohol or drug abuse patient.[facility] HospitalIn the event this information is protected by the Federal Confidentiality of Alcohol and Drug Abuse Patient Records regulations: The Federal rules restrict any use of the information to criminally investigate or prosecute any alcohol or drug abuse patient.[facility] HospitalIn the event this information is protected by the Federal Confidentiality of Alcohol and Drug Abuse Patient Records regulations: The Federal rules restrict any use of the information to criminally investigate or prosecute any alcohol or drug abuse patient.[facility] HospitalIn the event this information is protected by the Federal Confidentiality of Alcohol and Drug Abuse Patient Records regulations: The Federal rules restrict any use of the information to criminally investigate or prosecute any alcohol or drug abuse patient.[facility] HospitalIn the event this information is protected by the Federal Confidentiality of Alcohol and Drug Abuse Patient Records regulations: The Federal rules restrict any use of the information to criminally investigate or prosecute any alcohol or drug abuse patient.[facility] HospitalIn the event this information is protected by the Federal Confidentiality of Alcohol and Drug Abuse Patient Records regulations: The Federal rules restrict any use of the information to criminally investigate or prosecute any alcohol or drug abuse patient.[facility] HospitalIn the event this information is protected by the Federal Confidentiality of Alcohol and Drug Abuse Patient Records regulations: The Federal rules restrict any use of the information to criminally investigate or prosecute any alcohol or drug abuse patient.[facility] HospitalIn the event this information is protected by the Federal Confidentiality of Alcohol and Drug Abuse Patient Records regulations: The Federal rules restrict any use of the information to criminally investigate or prosecute any alcohol or drug abuse patient.[facility] HospitalIn the event this information is protected by the Federal Confidentiality of Alcohol and Drug Abuse Patient Records regulations: The Federal rules restrict any use of the information to criminally investigate or prosecute any alcohol or drug abuse patient.[facility] HospitalIn the event this information is protected by the Federal Confidentiality of Alcohol and Drug Abuse Patient Records regulations: The Federal rules restrict any use of the information to criminally investigate or prosecute any alcohol or drug abuse patient.[facility] HospitalIn the event this information is protected by the Federal Confidentiality of Alcohol and Drug Abuse Patient Records regulations: The Federal rules restrict any use of the information to criminally investigate or prosecute any alcohol or drug abuse patient.[facility] HospitalIn the event this information is protected by the Federal Confidentiality of Alcohol and Drug Abuse Patient Records regulations: The Federal rules restrict any use of the information to criminally investigate or prosecute any alcohol or drug abuse patient.[facility] HospitalIn the event this information is protected by the Federal Confidentiality of Alcohol and Drug Abuse Patient Records regulations: The Federal rules restrict any use of the information to criminally investigate or prosecute any alcohol or drug abuse patient.[facility] HospitalIn the event this information is protected by the Federal Confidentiality of Alcohol and Drug Abuse Patient Records regulations: The Federal rules restrict any use of the information to criminally investigate or prosecute any alcohol or drug abuse patient.[facility] HospitalIn the event this information is protected by the Federal Confidentiality of Alcohol and Drug Abuse Patient Records regulations: The Federal rules restrict any use of the information to criminally investigate or prosecute any alcohol or drug abuse patient.[facility] HospitalIn the event this information is protected by the Federal Confidentiality of Alcohol and Drug Abuse Patient Records regulations: The Federal rules restrict any use of the information to criminally investigate or prosecute any alcohol or drug abuse patient.[facility] HospitalIn the event this information is protected by the Federal Confidentiality of Alcohol and Drug Abuse Patient Records regulations: The Federal rules restrict any use of the information to criminally investigate or prosecute any alcohol or drug abuse patient.[facility] HospitalIn the event this information is protected by the Federal Confidentiality of Alcohol and Drug Abuse Patient Records regulations: The Federal rules restrict any use of the information to criminally investigate or prosecute any alcohol or drug abuse patient.[facility] HospitalIn the event this information is protected by the Federal Confidentiality of Alcohol and Drug Abuse Patient Records regulations: The Federal rules restrict any use of the information to criminally investigate or prosecute any alcohol or drug abuse patient.[facility] HospitalIn the event this information is protected by the Federal Confidentiality of Alcohol and Drug Abuse Patient Records regulations: The Federal rules restrict any use of the information to criminally investigate or prosecute any alcohol or drug abuse patient.[facility] HospitalIn the event this information is protected by the Federal Confidentiality of Alcohol and Drug Abuse Patient Records regulations: The Federal rules restrict any use of the information to criminally investigate or prosecute any alcohol or drug abuse patient.[facility] HospitalIn the event this information is protected by the Federal Confidentiality of Alcohol and Drug Abuse Patient Records regulations: The Federal rules restrict any use of the information to criminally investigate or prosecute any alcohol or drug abuse patient.[facility] HospitalIn the event this information is protected by the Federal Confidentiality of Alcohol and Drug Abuse Patient Records regulations: The Federal rules restrict any use of the information to criminally investigate or prosecute any alcohol or drug abuse patient.[facility] HospitalIn the event this information is protected by the Federal Confidentiality of Alcohol and Drug Abuse Patient Records regulations: The Federal rules restrict any use of the information to criminally investigate or prosecute any alcohol or drug abuse patient.[facility] HospitalIn the event this information is protected by the Federal Confidentiality of Alcohol and Drug Abuse Patient Records regulations: The Federal rules restrict any use of the information to criminally investigate or prosecute any alcohol or drug abuse patient.[facility] HospitalIn the event this information is protected by the Federal Confidentiality of Alcohol and Drug Abuse Patient Records regulations: The Federal rules restrict any use of the information to criminally investigate or prosecute any alcohol or drug abuse patient.[facility] HospitalIn the event this information is protected by the Federal Confidentiality of Alcohol and Drug Abuse Patient Records regulations: The Federal rules restrict any use of the information to criminally investigate or prosecute any alcohol or drug abuse patient.[facility] HospitalIn the event this information is protected by the Federal Confidentiality of Alcohol and Drug Abuse Patient Records regulations: The Federal rules restrict any use of the information to criminally investigate or prosecute any alcohol or drug abuse patient.[facility] HospitalIn the event this information is protected by the Federal Confidentiality of Alcohol and Drug Abuse Patient Records regulations: The Federal rules restrict any use of the information to criminally investigate or prosecute any alcohol or drug abuse patient.[facility] HospitalIn the event this information is protected by the Federal Confidentiality of Alcohol and Drug Abuse Patient Records regulations: The Federal rules restrict any use of the information to criminally investigate or prosecute any alcohol or drug abuse patient.[facility] HospitalIn the event this information is protected by the Federal Confidentiality of Alcohol and Drug Abuse Patient Records regulations: The Federal rules restrict any use of the information to criminally investigate or prosecute any alcohol or drug abuse patient.[facility] HospitalIn the event this information is protected by the Federal Confidentiality of Alcohol and Drug Abuse Patient Records regulations: The Federal rules restrict any use of the information to criminally investigate or prosecute any alcohol or drug abuse patient.[facility] HospitalIn the event this information is protected by the Federal Confidentiality of Alcohol and Drug Abuse Patient Records regulations: The Federal rules restrict any use of the information to criminally investigate or prosecute any alcohol or drug abuse patient.[facility] HospitalIn the event this information is protected by the Federal Confidentiality of Alcohol and Drug Abuse Patient Records regulations: The Federal rules restrict any use of the information to criminally investigate or prosecute any alcohol or drug abuse patient.[facility] HospitalIn the event this information is protected by the Federal Confidentiality of Alcohol and Drug Abuse Patient Records regulations: The Federal rules restrict any use of the information to criminally investigate or prosecute any alcohol or drug abuse patient.[facility] HospitalIn the event this information is protected by the Federal Confidentiality of Alcohol and Drug Abuse Patient Records regulations: The Federal rules restrict any use of the information to criminally investigate or prosecute any alcohol or drug abuse patient.[facility] HospitalIn the event this information is protected by the Federal Confidentiality of Alcohol and Drug Abuse Patient Records regulations: The Federal rules restrict any use of the information to criminally investigate or prosecute any alcohol or drug abuse patient.[facility] HospitalIn the event this information is protected by the Federal Confidentiality of Alcohol and Drug Abuse Patient Records regulations: The Federal rules restrict any use of the information to criminally investigate or prosecute any alcohol or drug abuse patient.[facility] HospitalIn the event this information is protected by the Federal Confidentiality of Alcohol and Drug Abuse Patient Records regulations: The Federal rules restrict any use of the information to criminally investigate or prosecute any alcohol or drug abuse patient.[facility] HospitalIn the event this information is protected by the Federal Confidentiality of Alcohol and Drug Abuse Patient Records regulations: The Federal rules restrict any use of the information to criminally investigate or prosecute any alcohol or drug abuse patient.[facility] HospitalIn the event this information is protected by the Federal Confidentiality of Alcohol and Drug Abuse Patient Records regulations: The Federal rules restrict any use of the information to criminally investigate or prosecute any alcohol or drug abuse patient.[facility] HospitalIn the event this information is protected by the Federal Confidentiality of Alcohol and Drug Abuse Patient Records regulations: The Federal rules restrict any use of the information to criminally investigate or prosecute any alcohol or drug abuse patient.[facility] HospitalIn the event this information is protected by the Federal Confidentiality of Alcohol and Drug Abuse Patient Records regulations: The Federal rules restrict any use of the information to criminally investigate or prosecute any alcohol or drug abuse patient.[facility] Reason for Visit (unrecogniz ed section and content) Reason Comments Follow Up Reason Onset Date Comments community monitoring outreach 12/31/2021 in sight enroll Reason Comments Cough with hoarseness x 2 months with LEFT ear discomfort Reason Comments Schedule Surgery Reason Comments Bilateral CTS - Referred by Nina Ron en Last seen 08/11/15 lipoma left shoulder - S/P Right CTR 06/08/11 and Left CTR 06/28/14 New Specialty Diagnoses / Procedures Referred By Librado negron Referred To Contact Orthopedics Diagnoses Carpal tunnel syndrome, bilateral Procedures CONSULT TO ORTHOPAEDICS OFFICE/OUTPATIENT NEW HIGH MDM 60-74 MINUTES Nina Marley, ENROLLMENT ELIGIBILITY REPRESENTATIVE.MEASUREMENT ADVISOR [address] [place] [address] Referral ID Status Reason Start Date Expiration Date V isits Requested Visits Authorized [id number] Closed PCP Requested Referral 01/04/2022 01/04/2023 1 1 Reason Onset Date Comments Community Monitoring Outreach 01/26/2022 In sight Healthy at Home Reason Comments Consult Reason Comments Patient Update Reason Comments Established Patient Post Op Reason Comments Ringing in ears Reason Comments Acute Visit ringing in ears Reason Comments Ear Problem Reason Onset Date Comments Population Health Navigation Outreach 02/17/2022 Healthy at Home [facility] Reason Comments Follow Up Ear Pain. Saw Eulalia Clayton on 02/12/22 Reason Onset Date Comments Community Monitoring Outreach 03/10/2022 in Sight check in call Reason Comments Established Patient 5wks 6days postop le ft CTR revision with nerve wrap & excision lesion left hand Post Op 5wks 6days postop le ft CTR revision with nerve wrap & excision lesion left hand Reason Onset Date Comments Community Monitoring Outreach 04/08/2022 in Sight check in call Reason Onset Date Comments CDM 05/07/2022 CDM check in man l Reason Onset Date Comments Refill Request 06/07/2022 Reason Onset Date Comments CDM 06/09/2022 Check in call Reason Onset Date Comments CDM 08/03/2022 Check in call Reason Onset Date Comments CDM 09/07/2022 Check in call Reason Comments ER F/U Reason Onset Date Comments Refill Request 10/11/2022 Reason Onset Date Comments community monitoring 01/05/2023 CDM telepho gary Reason Onset Date Comments [facility] monitoring 02/03/2023 CDM telepho gary Reason Comments Knee Pain right Reason Onset Date Comments Refill Request 02/05/2023 Reason Comments Results Knee xray Reason Onset Date Comments Refill Request 02/14/2023 Reason Comments Results Reason Onset Date Comments community monitoring 03/31/2023 CDM telepho gary Reason Comments Follow Up Abdominal pain. Inte rmittent. Feels hungry all the time. Reason Comments Radiology US Specialty Diagnoses / Procedures Referred By Contac t Referred To Contact US IMAGING Diagnoses RUQ pain Procedures US ABD RIGHT UPPER QUADRANT US ABDOMINAL REAL TIME W/IMAGE LIMITED Braulio Whitney MD [address] [place] [address] [place] [address] Referral ID Status Reason Start Date Expiration Date V isits Requested Visits Authorized [id number] Closed Auto-Generate d Referral 03/17/2023 04/15/2024 1 1 Reason Onset Date Comments [facility] monitoring 04/28/2023 CDM telepho gary Reason Comments Refill Request Reason Onset Date Comments [facility] monitoring 05/26/2023 CDM telepho gary Reason Onset Date Comments [facility] 07/21/2023 CDM telepho gary Reason Onset Date Comments [facility] 08/18/2023 CDM telepho gary Reason Onset Date Comments Refill Request 08/25/2023 Reason Comments 6 Month Exam Reason Onset Date Comments [facility] 10/13/2023 CDM telepho gary Reason Onset Date Comments [facility] monitoring 12/14/2023 CDM telepho gary Reason Onset Date Comments Refill Request 12/16/2023 Reason Onset Date Comments Refill Request 12/19/2023 Reason Onset Date Comments [facility] monitoring 01/13/2024 CDM telepho gary Reason Comments Left Knee Pain Fell about two hours ago, left knee swollen Reason Onset Date Comments community monitorin 02/10/2024 CDM telephon ic Reason Comments Ambulatory Social Work Community [facility] Reason Onset Date Comments Refill Request 03/21/2024 Reason Onset Date Comments [facility] monitoring 11/18/2023 CDM telepho gary Reason Onset Date Comments [facility] 04/06/2024 CDM telepho gary Reason Onset Date Comments [facility] monitoring 05/04/2024 CDM telepho gary Reason Comments Acute Visit Elevated blood press ure readings per home bp; increase in bowel movements for the last 3 days- no stomach pain, no blood in stool Reason Comments Consult Reason Onset Date Comments Population Health Navigation Outreach 09/21/2024 Griffin Barrett Reason Onset Date Comments Results 10/04/2024 Reason Onset Date Comments Refill Request 10/23/2024 Reason Comments Ear Problem Bilat ear clogged, u nable to hear for awhile Reason Comments Acute Visit Bilateral leg pain- chronic; getting worse; currently seeing pain mgmt for hand pain Reason Comments PT Eval Physical Therapy Specialty Diagnoses / Procedures Referred By Contac t Referred To Contact [facility] Diagnoses Lumbar spondylosis Primary osteoarthritis of both knees Procedures CONSULT TO PHYSICAL THERAPY PHYSICAL THERAPY EVALUATION HIGH COMPLEX 45 MINS Nina Marley APRN.MEASUREMENT ADVISOR [address] [place] [address] Phone: tel: fax: [facility] [address] [phone] Referral ID Status Reason Start Date Expiration Date V isits Requested Visits Authorized [id number] Closed Auto-Generate d Referral 07/21/2024 06/19/2025 1 1 Reason Comments Physical Therapy Specialty Diagnoses / Procedures Referred By Contac t Referred To Contact [facility] Diagnoses Lumbar spondylosis Primary osteoarthritis of both knees Procedures PT REHAB FOLLOW UP ORDER THERAPEUTIC EXERCISES RE, EA 15 MIN. [facility] [address] [place] [address] Phone: tel: fax: [facility] [address] [place] [address] Referral ID Status Reason Start Date Expiration Date Visits Requested Visits Authorized [id number] Authorized PCP Requested Referral Auto-Generate d Referral 11/14/2024 01/11/2025 6 6 Reason Comments Trauma Right upper leg pain after fall this morning Reason Comments Leg Pain Right upper leg pain Reason Comments Physical Therapy PT Progress Note Specialty Diagnoses / Procedures Referred By Contac t Referred To Contact [facility] Diagnoses Lumbar spondylosis Primary osteoarthritis of both knees Procedures PT REHAB FOLLOW UP ORDER THERAPEUTIC EXERCISES RE, EA 15 MIN. [facility] [address] [place] [address] Phone: tel: fax: [facility] [address] [place] [address] Referral ID Status Reason Start Date Expiration Date Visits Requested Visits Authorized [id number] Authorized PCP Requested Referral Auto-Generate d Referral 11/14/2024 01/11/2025 6 6 Referral ID Status Reason Start Date Expiration Date Visits Requested Visits Authorized [id number] Authorized PCP Requested Referral Auto-Generate d Referral 11/14/2024 04/13/2025 16 16 Reason Comments Medicare Wellness Exam Reason Comments Physical Therapy PT Discharge Specialty Diagnoses / Procedures Referred By Librado t Referred To Contact [facility] Diagnoses Lumbar spondylosis Primary osteoarthritis of both knees Procedures PT REHAB FOLLOW UP ORDER THERAPEUTIC EXERCISES RE, EA 15 MIN. [facility] [address] [place] [address] Phone: tel: fax: [facility] [address] [place] [address] Referral ID Status Reason Start Date Expiration Date Visits Requested Visits Authorized [id number] Authorized PCP Requested Referral Auto-Generate d Referral 11/14/2024 04/13/2025 16 16 Reason Comments Fax Request Care Teams (unrecognized sec tion and content) Job Captain Relationship Specialty Start Date End Date Braulio Whitney MD [address] [place], [place] [id number] PCP - General Family Practice 10/31/20 Job Captain Relationship Specialty Start Date End Date Braulio Whitney MD [address] [place], [place] [id number] PCP - General Family Practice 10/31/20 Cece Brewer RN [address] [place] [address] [employer] Unspecified 12/31/21 Job Captain Relationship Specialty Start Date End Date Braulio Whitney MD [address] [place], [place] [id number] PCP - General Family Practice 10/31/20October, Cece Mann RN [address] [place] [address] [employer]ter Unspecified 12/31/21 Job Captain Relationship Specialty Start Date End Date Braulio Whitney MD [address] [place] [address] PCP - General Family Practice 10/31/20October, Cece Mann RN [address] [place] [address] [employer] Painter Unspecified 12/31/21 Job Captain Relationship Specialty Start Date End Date Braulio Whitney MD [address] [place] [address] PCP - General Family Practice 10/31/20October, Cece Mann RN [address] [place] [address] [employer]ter Unspecified 12/31/21 Job Captain Relationship Specialty Start Date End Date Braulio Whitney MD [address] [place] [address] PCP - General Family Practice 10/31/20October, Cece Mann RN [address] [place] [address] [employer]ter Unspecified 12/31/21 Job Captain Relationship Specialty Start Date End Date Braulio Whitney MD [address] [place] [address] PCP - General Family Practice 10/31/20October, Cece Mann RN [address] [place] [address] [employer] Painter Unspecified 12/31/21 Job Captain Relationship Specialty Start Date End Date Braulio Whitney MD [address] [place] [address] PCP - General Family Practice 10/31/20October, Cece Mann RN [address] [place] [address] [employer] Painter Unspecified 12/31/21 Job Captain Relationship Specialty Start Date End Date Braulio Whitney MD [address] [place] [address] PCP - General Family Practice 10/31/20October, Cece Mann RN [address] [place] [address] [employer] Painter Unspecified 12/31/21 Job Captain Relationship Specialty Start Date End Date Braulio Whitney MD [address] [place] [address] PCP - General Family Practice 10/31/20October, Cece Mann RN [address] [place] [address] [employer] Painter Unspecified 12/31/21 Job Captain Relationship Specialty Start Date End Date Braulio Whitney MD [address] [place] [address] PCP - General Family Practice 10/31/20October, Cece Mann RN [address] [place] [address] [employer] Painter Unspecified 12/31/21 Job Captain Relationship Specialty Start Date End Date Braulio Whitney MD [address] [place] [address] PCP - General Family Practice 10/31/20October, Cece Mann RN [address] [place] [address] [employer] Painter Unspecified 12/31/21 Job Captain Relationship Specialty Start Date End Date Braulio Whitney MD [address] [place] [address] PCP - General Family Medicine 10/31/20October, Cece Mann RN [address] [place] [address] [employer] Painter Unspecified 12/31/21 Job Captain Relationship Specialty Start Date End Date Braulio Whitney MD [address] [place] [address] PCP - General Family Medicine 10/31/20October, Cece Mann RN [address] [place] [address] [employer] Unspecified 12/31/21 Job Captain Relationship Specialty Start Date End Date Braulio Whitney MD [address] [place] [address] PCP - General Family Medicine 10/31/20October, Cece Mann RN [address] [place] [address] [place] [employer]ter Unspecified 12/31/21 Job Captain Relationship Specialty Start Date End Date Braulio Whitney MD [address] [place] [address] PCP - General Family Medicine 10/31/20October, Cece Mann RN [address] [place] [address] [employer] Unspecified 12/31/21 Team Status: Active Member Role Status Dates Dr. Brock Reddy III, MD Family Provider Active Dr. Braulio Whitney MD Primary Care Provider Active Team Status: Inactive Member Role Status Dates Dr. Braulio Whitney MD Primary Care Provider Active Dr. Juan Dockery DO Emergency Provider Active Job Captain Relationship Specialty Start Date End Date Braulio Whitney MD [address] [place] [address] PCP - General Family Medicine 10/31/20October, Cece Mann RN [address] [place] [address] [employer] Unspecified 12/31/21 Job Captain Relationship Specialty Start Date End Date Braulio Whitney MD [address] [place] [address] PCP - General Family Medicine 10/31/20October, Cece Mann RN [address] [place] [address] [employer]ter Unspecified 12/31/21 Job Captain Relationship Specialty Start Date End Date Braulio Whitney MD [address] [place] [address] PCP - General Family Medicine 10/31/20 Sosa Bernstein, RN [address] [place] [address] [place] [facility] Internal Medicine 11/22/22 Job Captain Relationship Specialty Start Date End Date Braulio Whitney MD [address] [place] [address] PCP - General Family Medicine 10/31/20 Sosa Bernstein, RN [address] [place] [address] [place] Painter Internal Medicine 11/22/22 Job Captain Relationship Specialty Start Date End Date Braulio Whitney MD [address] [place] [address] PCP - General Family Medicine 10/31/20 Sosa Bernstein, HEDY [address] [place] [address] [place] Pain[employer] Internal Medicine 11/22/22 Job Captain Relationship Specialty Start Date End Date Braulio Whitney MD [address] [place] [address] PCP - General Family Medicine 10/31/20 Sosa Bernstein, RN [address] [place] [address] [place] Pain[employer] Internal Medicine 11/22/22 Job Captain Relationship Specialty Start Date End Date Braulio Whitney MD [address] [place] [address] PCP - General Family Medicine 10/31/20 Sosa Bernstein, RN [address] [place] [address] [place] Painter Internal Medicine 11/22/22 Job Captain Relationship Specialty Start Date End Date Braulio Whitney MD [address] [place] [address] PCP - General Family Medicine 10/31/20 Sosa Bernstein, RN [address] [place] [address] [place] Pain[employer] Internal Medicine 11/22/22 Job Captain Relationship Specialty Start Date End Date Braulio Whitney MD [address] [place] [address] PCP - General Family Medicine 10/31/20 Sosa Bernstein, RN [address] [place] [address] [place] Pain[employer] Internal Medicine 11/22/22 Job Captain Relationship Specialty Start Date End Date Braulio Whitney MD [address] [place] [address] PCP - General Family Medicine 10/31/20 Sosa Bernstein, HEDY [address] [place] [address] [place] [employer] Internal Medicine 11/22/22 Job Captain Relationship Specialty Start Date End Date Braulio Whitney MD [address] [place] [address] PCP - General Family Medicine 10/31/20 Sosa Bernstein, RN [address] [place] [address] [place] Pain[employer] Internal Medicine 11/22/22 Job Captain Relationship Specialty Start Date End Date Braulio Whitney MD [address] [place] [address] PCP - General Family Medicine 10/31/20 Sosa Bernstein, RN [address] [place] [address] [place] Painter Internal Medicine 11/22/22 Job Captain Relationship Specialty Start Date End Date Braulio Whitney MD [address] [place] [address] PCP - General Family Medicine 10/31/20 Sosa Bernstein, RN [address] [place] [address] [place] Pain[employer] Internal Medicine 11/22/22 Job Captain Relationship Specialty Start Date End Date Braulio Whitney MD [address] [place] [address] PCP - General Family Medicine 10/31/20 Sosa Bernstein, RN [address] [place] [address] [place] Pain[employer] Internal Medicine 11/22/22 Job Captain Relationship Specialty Start Date End Date Braulio Whitney MD [address] [place] [address] PCP - General Family Medicine 10/31/20 Sosa Bernstien, RN [address] [place] [address] [place] [employer] Internal Medicine 11/22/22 Job Captain Relationship Specialty Start Date End Date Braulio Whitnye MD [address] [place] [address] PCP - General Family Medicine 10/31/20 Sosa Bernstein, RN [address] [place] [address] [place] [employer] Internal Medicine 11/22/22 Job Captain Relationship Specialty Start Date End Date Braulio Whitney MD [address] [place] [address] PCP - General Family Medicine 10/31/20 Sosa Bernstein, RN [address] [facility], [place] [address]31 [employer] Pain[employer] Internal Medicine 11/22/22 Job Captain Relationship Specialty Start Date End Date Braulio Whitney MD [address] [place] [address] PCP - General Family Medicine 10/31/20 Sosa Bernstein, HEDY [address] [facility], [place] [address] [place] [facility] Internal Medicine 11/22/22 Job Captain Relationship Specialty Start Date End Date Braulio Whitney MD [address] [facility], [place] [address] PCP - General Family Medicine 10/31/20 Sosa Bernstein RN [address] [facility], [place] [address] [place] [employer] Internal Medicine 11/22/22 Job Captain Relationship Specialty Start Date End Date Braulio Whitney MD [address] [place] [address] PCP - General Family Medicine 10/31/20 Sosa Bernstein, HEDY [address] [facility], [place] [address]31 [employer] [facility] Internal Medicine 11/22/22 Job Captain Relationship Specialty Start Date End Date Brock Reddy III, MD PCP - General Family Medicine 06/28/18 10/30/20 Job Captain Relationship Specialty Start Date End Date Braulio Whitney MD [address] [facility], [place] [address] PCP - General Family Medicine 10/31/20 Sosa Bernstein, RN [address] [facility], [place] [address]31 [place] [facility] Internal Medicine 11/22/22 Job Captain Relationship Specialty Start Date End Date Braulio Whitney MD [address] [place] [address] PCP - General Family Medicine 10/31/20 Nina Marley APRN.MEASUREMENT ADVISOR [address] [place] [address] Manager [facility] 05/28/24 Marii Red APRN.MEASUREMENT ADVISOR [address] [place] [address] [facility] 05/28/24 Job Captain Relationship Specialty Start Date End Date Braulio Whitney MD [address] [place] [address] PCP - General Family Medicine 10/31/20 Nina Marley APRN.MEASUREMENT ADVISOR [address] [place] [address] [facility] 05/28/24 Marii Red APRN.MEASUREMENT ADVISOR [address] [place] [address] [facility] 05/28/24 Job Captain Relationship Specialty Start Date End Date Braulio Whitney MD [address] [place] [address] PCP - General Family Medicine 10/31/20 Nina Marley APRN.MEASUREMENT ADVISOR [address] [place] [address] [facility] 05/28/24 Marii Red APRN.MEASUREMENT ADVISOR [address] [place] [address] [facility] 05/28/24 Job Captain Relationship Specialty Start Date End Date Braulio Whitney MD [address] [place] [address] PCP - General Family Medicine 10/31/20 Nina Marley, ENROLLMENT ELIGIBILITY REPRESENTATIVE.MEASUREMENT ADVISOR [address] [place] [address] [facility] 05/28/24 Marii Red ENROLLMENT ELIGIBILITY REPRESENTATIVE.MEASUREMENT ADVISOR [address] [place] [address] [facility] 05/28/24 Job Captain Relationship Specialty Start Date End Date Braulio Whitney MD [address] [place] [address] PCP - General Family Medicine 10/31/20 Nina Marley, ENROLLMENT ELIGIBILITY REPRESENTATIVE.MEASUREMENT ADVISOR [address] [place] [address] [facility] 05/28/24 Marii Red ENROLLMENT ELIGIBILITY REPRESENTATIVE.MEASUREMENT ADVISOR [address] [place] [address] [facility] Medicine 05/28/24 Job Captain Relationship Specialty Start Date End Date Braulio Whitney MD [address] [place] [address] PCP - General Family Medicine 10/31/20 Nina Marley, ENROLLMENT ELIGIBILITY REPRESENTATIVE.MEASUREMENT ADVISOR [address] [place] [address] [facility] 05/28/24 Marii Red APRN.MEASUREMENT ADVISOR [address] [place] [address] [facility] 05/28/24 Job Captain Relationship Specialty Start Date End Date Braulio Whitney MD [address] [place] [address] PCP - General Family Medicine 10/31/20 Nina Marley, ENROLLMENT ELIGIBILITY REPRESENTATIVE.MEASUREMENT ADVISOR [address] [place] [address] [facility] 05/28/24 Marii Red ENROLLMENT ELIGIBILITY REPRESENTATIVE.MEASUREMENT ADVISOR [address] [place] [address] [facility] 05/28/24 Job Captain Relationship Specialty Start Date End Date Braulio Whitney MD [address] [place] [address] PCP - General Family Medicine 10/31/20 Nina Marley, ENROLLMENT ELIGIBILITY REPRESENTATIVE.MEASUREMENT ADVISOR [address] [place] [address] [facility] 05/28/24 Marii Red ENROLLMENT ELIGIBILITY REPRESENTATIVE.MEASUREMENT ADVISOR [address] [place] [address] [facility] 05/28/24 Job Captain Relationship Specialty Start Date End Date Braulio Whitney MD [address] [place] [address] PCP - General Family Medicine 10/31/20 Nina Marley, ENROLLMENT ELIGIBILITY REPRESENTATIVE.MEASUREMENT ADVISOR [address] [place] [address] [facility] 05/28/24 Marii Red APRN.MEASUREMENT ADVISOR [address] [place] [address] [facility] 05/28/24 Job Captain Relationship Specialty Start Date End Date Braulio Whitney MD [address] [place] [address] PCP - General Family Medicine 10/31/20 Nina Marley APRN.MEASUREMENT ADVISOR [address] [place] [address] [facility] 05/28/24 Marii Red APRN.MEASUREMENT ADVISOR [address] [place] [address] [facility] 05/28/24 Job Captain Relationship Specialty Start Date End Date Braulio Whitney MD [address] [place] [address] PCP - General Family Medicine 10/31/20 Nina Marley ENROLLMENT ELIGIBILITY REPRESENTATIVE.MEASUREMENT ADVISOR [address] [place] [address] [facility] 05/28/24 Marii Red ENROLLMENT ELIGIBILITY REPRESENTATIVE.MEASUREMENT ADVISOR [address] [place] [address] [facility] 05/28/24 Job Captain Relationship Specialty Start Date End Date Braulio Whitney MD [address] [place], [place] [address] PCP - General Family Medicine 10/31/20 Nina Marley APRN.MEASUREMENT ADVISOR [address] [place] [address] [facility] 05/28/24 Marii Red APRN.MEASUREMENT ADVISOR [address] [place] [address] [facility] 05/28/24 Job Captain Relationship Specialty Start Date End Date Braulio Whitney MD [address] [place], [place] [address]4501 PCP - General Family Medicine 10/31/20 Nina Marley APRN.MEASUREMENT ADVISOR [address] [place] [address] [facility] 05/28/24 Marii Red APRN.MEASUREMENT ADVISOR [address] [place] [address] [facility] 05/28/24 Job Captain Relationship Specialty Start Date End Date Braulio Whitney MD [address] [place] [address] PCP - General Family Medicine 10/31/20 Nina Marley ENROLLMENT ELIGIBILITY REPRESENTATIVE.MEASUREMENT ADVISOR [address] [place] [address] [facility] 05/28/24 Marii Red APRN.MEASUREMENT ADVISOR [address] [place], [place] 437532 [phone] [facility] 05/28/24 Job Captain Relationship Specialty Start Date End Date Braulio Whitney MD [address] [place] [address] PCP - General Family Medicine 10/31/20 Nnia Marley APRN.MEASUREMENT ADVISOR [address] [facility] [place] [address] [facility] 05/28/24 Marii Red APRN.MEASUREMENT ADVISOR [address] [place] [address] [facility] 05/28/24 Job Captain Relationship Specialty Start Date End Date Braulio Whitney MD [address] [place] [address] PCP - General Family Medicine 10/31/20 Nina Marley APRN.MEASUREMENT ADVISOR [address] [facility] [place] [address] [facility] 05/28/24 Marii Red APRN.MEASUREMENT ADVISOR [address] [place] [address] [facility] 05/28/24 Job Captain Relationship Specialty Start Date End Date Braulio Whitney MD [address] [place] [address] PCP - General Family Medicine 10/31/20 Nina Marley APRN.MEASUREMENT ADVISOR [address] [facility] [place] [address] [facility] 05/28/24 Marii Red APRN.MEASUREMENT ADVISOR [address] [place] [address] [facility] 05/28/24 Job Captain Relationship Specialty Start Date End Date Braulio Whitney MD [address] [place] [address] PCP - General Family Medicine 10/31/20 Nina Marley ENROLLMENT ELIGIBILITY REPRESENTATIVE.MEASUREMENT ADVISOR [address] [place] [address] [facility] 05/28/24 Marii Red ENROLLMENT ELIGIBILITY REPRESENTATIVE.MEASUREMENT ADVISOR [address] [place] [address] [facility] 05/28/24 Job Captain Relationship Specialty Start Date End Date Braulio Whitney MD [address] [place] [address] PCP - General Family Medicine 10/31/20 Nina Marley ENROLLMENT ELIGIBILITY REPRESENTATIVE.MEASUREMENT ADVISOR [address] [place] [address] Manager [facility] 05/28/24 Marii Red ENROLLMENT ELIGIBILITY REPRESENTATIVE.MEASUREMENT ADVISOR [address] [place] [address] [facility] 05/28/24 Job Captain Relationship Specialty Start Date End Date Braulio Whitney MD [address] [place] [address] PCP - General Family Medicine 10/31/20 Nina Marley, ENROLLMENT ELIGIBILITY REPRESENTATIVE.MEASUREMENT ADVISOR [address] [place] [address] [facility] 05/28/24 Marii Red APRN.MEASUREMENT ADVISOR [address] [place], [place] 4460[address] [facility] 05/28/24 Job Captain Relationship Specialty Start Date End Date Braulio Whitney MD [address] [place], [place] [address]85[address] PCP - General Family Medicine 10/31/20 Nina Marley APRN.MEASUREMENT ADVISOR [address] [place] [address] [facility] 05/28/24 Marii Red APRN.MEASUREMENT ADVISOR [address] [place], [place] [address] [facility] 05/28/24 Continuous Active and Recently Administ ered Medications (unrecognized section and content) Medication Order 01/27/2022 01/28/2022 01/29/2022 lactated ringers iv infusion 50 mL/hr, INTRAVENOUS, CONTINUOUS, Starting on Tue01/29/22 at 1730, Until 01/30/22 at 0304, Recovery or Phase I (only) 1730 (Due) PRN Medication Order 01/27/2022 01/28/2022 01/29/2022 fentaNYL 50 mcg/mL 50 mcg injection (SUBLIMAZE) 50 mcg, INTRAVENOUS, EVERY 10 MINUTES NEEDED, 4 doses, Starting on Tue01/29/22 at 1723, Until 01/30/22 at 0304, Moderate Pain (4-6) - Parenteral, Severe Pain (>/=7) - Parenteral, breakthrough pain, FIRST LINE THERAPY for mild, moderate, or severe pain, USE FOR MILD PAIN ONLY IF PATIENT IS UNABLE TO TOLERATE ORAL THERAPY, Recovery or Phase I (only) lidocaine 2%-EPINEPHrine 1:100,000 injection (CANCELED) X (OR/PROCEDURE) PRN, Starting on Tue01/29/22 at 1659, Until Tue01/29/22 at 1718, Intraprocedure 1659 (Given - Provid er: Gabe Elizabeth MD) meperidine (PF) 12.5 mg injection (DEMEROL) 12.5 mg, INTRAVENOUS, EVERY 10 MINUTES NEEDED, 2 doses, Starting on Tue01/29/22 at 1723, Until 01/30/22 at 0304, for shivering, May Repeat 12.5 mg in 10 minutes X1, Recovery or Phase I (only) NaCl 0.9% irrigation solution (CANCELED) X (OR/PROCEDURE) PRN, Starting on Tue01/29/22 at 1650, Until Tue01/29/22 at 1718, Intraprocedure 1650 (Given - Provid er: Gabe Elizabeth MD) oxyCODONE IR 5 mg tab(s) (ROXICODONE) 5 mg, ORAL, NEEDED, 1 dose, Starting on Tue01/29/22 at 1723, Until 01/30/22 at 0304, Mild Pain (1-3) - Enteral, Recovery or Phase I (only) prochlorperazine 10 mg injection (COMPAZINE) 10 mg, INTRAVENOUS, EVERY 6 HOURS NEEDED, Starting on Tue01/29/22 at 1723, Until 01/30/22 at 0304, Nausea/Vomiting - First Line - Parenteral, EVERY 6 HOURS NEEDED Protect From Light, Recovery or Phase I (only) INFORMATION SOURCE (unrecogn ized section and content) DATE CREATED AUTHOR 02/09/2022 [facility] DATE CREATED AUTHOR AUTHOR'S ORGANIZ ATION 08/01/2023 [facility] DATE CREATED AUTHOR AUTHOR'S ORGANIZ ATION 05/22/2024 [facility] DATE CREATED AUTHOR AUTHOR'S ORGANIZ ATION 04/09/2025 [facility] Goals (unrecognized section and content) Goals may be documented in a n alternate section FOR RECORDS PERTAINING TO PATIENTS WHO ARE OR HAVE BEEN ENROLLED IN A CHEMICAL DEPENDENCY/SUBSTANCEABUSE PROGRAM, SOME INFORMATION MAY BE OMITTED. This clinical summary was aggregated from multiple sources. Caution should be exercised in using it in the provision of clinical care. This summary normalizes information from multiple sources, and as a consequence, information in this document may materially change the coding, format and clinical context of patient data. In addition, data may be omitted in some cases. CLINICAL DECISIONS SHOULD BE BASED ON THE PRIMARY CLINICAL RECORDS. [email or web address] provides no warranty or guarantee of the accuracy or completeness of information in this document.
[2025-04-15 20:02] VITALS: BP 140/63
== END 2025-04-15 20:03 | disposition home or self-care (01) ==
PROVIDERS: Emergency Provider Emergency Medicine; PCP Family Medicine; Visit Provider Emergency Medicine
DX: S80.02XA Contusion of left knee, initial encounter (principal); S00.81XA Abrasion of other part of head, initial encounter; I10 Essential (primary) hypertension; S00.33XA Contusion of nose, initial encounter; E78.5 Hyperlipidemia, unspecified; W10.1XXA Fall (on)(from) sidewalk curb, initial encounter; Z23 Encounter for immunization
CPT/HCPCS: 70450; 70486; 72125; 73564; 90471; 90715; 99284